=== PATIENT | male | born 1960 | race Caucasian/White ===

== ENCOUNTER 2019-03-17 12:10 | Outpatient (RCR) | payer MEDICARE, SELFPAY ==
[2019-03-17 13:39] LABS: INR 3.1; Prothrombin Time 32.5 Seconds (9.64-11.0)
== END 2019-06-15 23:59 | disposition home or self-care (01) ==
LOC: CHSLAB 12:10
PROVIDERS: PCP Internal Medicine; Visit Provider Internal Medicine
DX: Z79.01 Long term (current) use of anticoagulants (principal)
CPT/HCPCS: 36415; 85610

== ENCOUNTER 2019-04-17 14:35 | Outpatient (CLI) | payer MEDICARE, SELFPAY ==
--- NOTE | ~2019-04-17 | CT_ITS ---
EXAMINATION: CT abdomen pelvis wo con DATE: 04/17/2019 16:07 INDICATION: Cirrhosis TECHNIQUE: Computed tomography (CT) of the abdomen and pelvis was performed without intravenous contr ast. Automated exposure control and iterative reconstruction technique were employed. Exam dose: 143 2.87 mGy-cm total exam DLP. COMPARISON: 06/18/2018 CT abdomen pelvis FINDINGS: There is a 6 mm pleural-based calcified posteromedial right lower lobe nodule, consistent w ith benign process, likely a small calcified pulmonary granuloma. No infiltrate or consolidation at t he lung bases. Borderline heart size. Status post cholecystectomy. No hepatic, splenic or pancreatic space-occupying mass lesion is evident . No splenomegaly. There is a solitary calcification of the pancreatic head which may indicate mild c hronic pancreatitis. No bile duct or pancreatic duct dilatation. Normal morphology of the adrenal glands. There is an approximately 6.7 mm nonobstructing left renal calculus. There is an approximately 4.8 mm distal left ureteral calculus without hydroureteronephrosis. No right urinary tract calculus. No rig ht-sided hydroureteronephrosis. There is abdominal aortic calcification and bilateral lateral iliac and femoral artery calcification, without aneurysm. No intraperitoneal or retroperitoneal or pelvic mass lesion or adenopathy or ascites. Prominent prostate calcifications are noted. Bilateral vas deferens calcifications, suggesting diabet es. The urinary bladder is unremarkable. Diverticulosis of the sigmoid colon; no CT evidence of diverticulitis. No bowel obstruction or intrap eritoneal free air is detected. There is generalized edema of the abdominal and pelvic tirado. Diffuse osteopenia. There are compression fracture deformities of L1, L3, L4 and L5. Degenerative changes of the thoracic and lumbar spine. Prominent degenerative disc disease is noted i n particular at L1-2 and L5-S1. IMPRESSION: Status post cholecystectomy Left nephrolithiasis 4.8 mm distal left ureteral calculus Prominent prostate calcifications Bilateral vas deferens calcifications, likely due to diabetes Diverticulosis of the colon Anasarca Reviewed, dictated and finalized at [facility]. Reviewed, dictated and finalized at location B. ING PROFESSOR
[2019-04-17 15:48] LABS: Basophils Absolute Auto 0.04 K/mm3 (0.00-0.10); Basophils Percent Auto 0.3 % (0.0-1.0); Eosinophils Absolute Auto 0.09 K/mm3 (0.02-0.50); Eosinophils Percent Auto 0.7 % (1.0-6.0); Hematocrit 32.1 % (40.0-54.0); Hemoglobin 10.6 g/dL (14.0-18.0); Immature Granulocyte Absolute 0.09 K/mm3 (0.00-0.00); Immature Granulocyte Percent A 0.7 % (0.0-0.0); Lymphocytes Absolute Auto 1.15 K/mm3 (1.10-4.50); Mean Corpuscular Hemoglobin 34.6 pg (27.0-31.0); Mean Corpuscular Volume 104.9 fL (78.0-102.0); Mean Platelet Volume 9.1 fl (8.7-11.0); Monocytes Absolute Auto 1.08 K/mm3 (0.10-0.90); Monocytes Percent Auto 8.4 % (2.0-11.0); Neutrophils Absolute Auto 10.4 K/mm3 (1.7-7.2); Neutrophils Percent Auto 80.9 % (50.0-70.0); Platelet Count Result 417 K/mm3 (150-420); Red Blood Count 3.06 M/mm3 (4.70-6.10); Red Cell Distribution Width 15.2 % (11.6-14.4); White Blood Count 12.8 K/mm3 (4.8-10.8)
[2019-04-17 16:01] LABS: Prothrombin Time 98.8 Seconds (9.64-11.0)
[2019-04-17 16:10] LABS: INR 10.4
[2019-04-17 16:21] LABS: Alanine Aminotransferase 22 U/L (16-63); Albumin Level 1.6 g/dL (3.4-5.0); Alkaline Phosphatase 142 U/L (46-116); Ammonia 65 umol/L (11-32); Anion Gap 14.7 mmol/L (7-16); Aspartate Amino Transferase 23 U/L (15-37); Bilirubin,Total 0.3 mg/dL (0.00-1.00); Blood Urea Nitrogen 9 mg/dL (7-18); Calcium 8.1 mg/dL (8.5-10.1); Carbon Dioxide 23 mmol/L (21-32); Chloride 104 mmol/L (98-108); Estimated Glomerular Filt Rate > 60; Ferritin 756 ng/mL (26-388); GGT 116 U/L (15-85); Glucose 120 mg/dL (70-99); Iron 35 ug/dL (65-175); Osmolality Calculated 285 mOsm/kg (285-295); Percent Iron Saturation 18 % (12-57); Potassium 3.7 mmol/L (3.5-5.1); Sodium 138 mmol/L (136-145); Total Protein 5.4 g/dL (6.4-8.2)
[2019-04-17 16:46] LABS: BNP 235 pg/mL (0-100)
[2019-04-20 11:17] LABS: Mitochondrial (M2) Ab (IgG) <=20.0 U (<=20.0)
[2019-04-21 04:05] LABS: Hepatitis B Surface Antibody Nonreactive (Nonreactive); Hepatitis C Signal to Cutoff 0.06 ratio (<1.00); Hepatitis C Virus Antibody Nonreactive (Nonreactive)
[2019-04-21 19:47] LABS: Alpha Fetoprotein Tumor Marker 1.8 ng/mL (<6.1)
[2019-04-22 11:20] LABS: Actin Antibody (IgG) <20 U (<20)
== END 2019-04-17 15:36 | disposition home or self-care (01) ==
PROVIDERS: PCP Internal Medicine; Visit Provider Internal Medicine
DX: K74.60 Unspecified cirrhosis of liver (principal); R18.8 Other ascites; R06.00 Dyspnea, unspecified; D64.9 Anemia, unspecified; R60.1 Generalized edema
CPT/HCPCS: 36415; 74176; 80053; 82105; 82140; 82728; 82977; 83516; 83520; 83540; 83550; 83880; 85025; 85610; 86038; 86706

== ENCOUNTER 2019-05-14 17:38 | Inpatient (IN) | payer MEDICARE, SELFPAY ==
--- NOTE | ~2019-05-14 | US_ITS ---
EXAMINATION: US venous doppler [facility] DATE: 05/18/2019 12:45 INDICATION: Right lower limb pain. TECHNIQUE: Grayscale ultrasound images without and with compression and Doppler ultrasound images of the bilateral lower extremity veins were obtained. COMPARISON: None. FINDINGS: The visualized portions of right common femoral vein, profunda (deep) femoral vein, femoral vein, pop liteal vein, peroneal veins, posterior tibial veins, and greater saphenous vein outflow are patent. The visualized portions of left common femoral vein, profunda femoral vein, popliteal vein, peroneal veins, posterior tibial veins, and greater saphenous vein outflow are patent. There is thrombus in le ft femoral vein. IMPRESSION: 1. Deep vein thrombosis involving left femoral vein. Reviewed, dictated and finalized at location A.
--- NOTE | ~2019-05-14 | US_ITS ---
EXAMINATION: US venous doppler [facility] DATE: 05/18/2019 12:45 INDICATION: Left upper limb swelling. TECHNIQUE: Grayscale ultrasound images without and with compression and Doppler ultrasound images of the bilateral upper extremity veins were obtained. COMPARISON: None. FINDINGS: The visualized portions of the right internal jugular vein, subclavian vein, axillary vein, brachial veins, basilic vein, radial vein, and ulnar vein are patent. There is thrombus in right cephalic vein . The visualized portions of the left subclavian vein, brachial veins, basilic vein, radial vein, and u lnar vein are patent. There is thrombus in left cephalic vein, internal jugular vein, and axillary ve in. IMPRESSION: 1. Deep vein thrombosis involving left internal jugular vein and axillary vein. 2. Superficial vein thrombosis involving the bilateral cephalic veins. Reviewed, dictated and finalized at location A. IMPRESSION: 1. Deep vein thrombosis involving left internal jugular vein and axillary vein . 2. Superficial vein thrombosis involving the bilateral cephalic veins.
[2019-05-14 17:45] VITALS: BP 117/81; PULSE 99; RESP 18; TEMP 36.4; O2SAT 99; BMI 28.8
--- NOTE | 2019-05-14 18:03 | ADMGEN ---
This patient, Calixto Lyons, was admitted to 2nd Floor Room 204-2. Patient/family oriented to hospital policies and general routines including ID bracelet, bed and alarms, visiting hours, pain management, procedures, bathroom and other care routines, personal items, smoking policy, room service/diet, and visiting hours. Valuables list has been completed. Information on how to activate the Rapid Response Team has been discussed. Patient/Family are encouraged to report perceived risks to care and to ask questions if they do not understand what they are told or what they should do.
[2019-05-14] MEDS: FLUTICASONE PROPIONATE 0.05% NA SPR 16 GM BTL (*BKC) 2 SPRAY NASAL (20:11)
[2019-05-14] MEDS: TRAZODONE HCL 50 MG TABLET 100 MG PO (20:11)
[2019-05-14 22:00] VITALS: BP 114/65; PULSE 96; RESP 14; TEMP 36; O2SAT 99
[2019-05-15] MEDS: VANCOMYCIN HCL 125 MG CAPSULE PO ×5 (00:43→23:41)
[2019-05-15 06:00] VITALS: BP 123/50; PULSE 71; RESP 12; TEMP 36.4; O2SAT 99
--- NOTE | 2019-05-15 07:20 | PC.NURSE ---
Patient sleeping quietly in bed on right side. No distress noted. Breathing unlabored.
[2019-05-15 07:59] VITALS: BP 148/93; PULSE 118; RESP 18; TEMP 36.6; O2SAT 98
[2019-05-15 08:50] VITALS: PULSE 118
[2019-05-15] MEDS: THIAMINE HCL 100 MG TABLET PO (08:50)
[2019-05-15] MEDS: METOPROLOL TARTRATE 25 MG TABLET PO ×2 (08:50→18:03)
[2019-05-15] MEDS: FAMOTIDINE 20 MG TABLET PO (08:50)
[2019-05-15] MEDS: ASPIRIN 81 MG CHEWABLE TABLET PO (08:50)
[2019-05-15] MEDS: FERROUS SULFATE 324 MG TABLET PO (08:50)
[2019-05-15] MEDS: TAMSULOSIN HCL 0.4 MG CAPSULE PO ×2 (08:50→18:03)
[2019-05-15] MEDS: FOLIC ACID 1 MG TABLET PO (08:50)
[2019-05-15] MEDS: FUROSEMIDE 40 MG TABLET PO (08:51)
[2019-05-15] MEDS: CHOLESTYRAMINE (W/ SUGAR) 4 GM POWD.PACK PO ×2 (08:51→18:03)
--- NOTE | 2019-05-15 09:00 | PC.NURSE ---
Physical Therapy and Occupational Therapy in room to evaluate patient.
[2019-05-15] MEDS: SACCHAROMYCES BOULARDII 250 MG CAPSULE PO ×2 (09:13→18:04)
--- NOTE | 2019-05-15 10:31 | PM.IMHP ---
H&P: HPI History of Present Illness Chief complaint: rehab Narrative: Calixto Lyons is a 58 year old male admitted to swing bed rehab for generalized weakness, bilateral leg pain/numbness/ weakness, monitoring of INR and therapeutic Coumadin dosing, monitoring diarrhea and stool output as well as recovering from diarrhea, and monitoring for improvement from having multiple DVTs. Calixto reports that he lives in been held alone, he has been driving up until this hospitalization at [facility] in [facility]. He has 3 children that all live in [place] [facility] [place]. His children take turns carrying his groceries and getting his errands done. He reports I can't carry groceries and walk at the same time. He has a history of a fall on April 28 at night. Where he laid on his back in his home overnight, and in the morning called the ambulance on April 29. He reports having wounds to his buttocks due to laying on the ground all night in his own, urinating while he laid there on himself, and having bowel movements as well. It was reported that he had diarrhea at [facility] but that C diff test were both negative. They still started him on the C diff oral vancomycin protocol and wanted us to continue that here 125 mg p.o. q.6 hours. He is having diarrhea here, ordered stool cultures as well as C diff toxin study. Requested that Physical therapy work with him on pelvic floor exercises to strengthen his ability to maintain continent voiding and stools. Ordered labs and a full workup today. Ordered Coumadin dosing to be monitored by Pharmacy. Ordered INR and PT labs daily. Ordered serial CBC every 72 hours. Calixto is complaining of right lower leg anterior grajeda pain. He states this is been only since his fall on April 28 but the pain is not improving. He says it makes it difficult for him to walk with therapy. We have requested copies of the CT scans that they did of both legs at [facility], as well as the arterial studies and the venous Dopplers that were done at that time. Vascular surgery and plastics also were consulted at [facility] to follow-up on his legs, leg pain, and buttock wounds. I have requested those consultation note to be faxed to us as well. Calixto has palpable pulses to all 4 of his extremities, normal cap refill return, in warmth to all 4 of his extremities with no sign of circulation acute concerns. His left arm is slightly larger than his right arm, but he stated that this is improving. He did have peripheral IVs in the left arm at the prior hospital. Regarding his stage II pressure sores acquired at his own home prior to hospitalization: I have examined his buttock wounds and ordered wound care and dressings equivalent to the Mepilex dressing that plastics requested. I have asked care coordination to schedule Calixto for his follow-up visit in 7 days to be seen by Plastics for his buttock wounds. Ordered Q 2 hours turns, ordered up to chair for meals, ordered daily supplemental protein. Review of Systems Constitutional: Constitutional: Denies excessive sweating, Denies headache(s), Denies increased appetite, Denies snoring and Denies weight gain Eyes: Eyes: Denies exophthalmos, Denies diplopia, Denies floaters and Denies loss of peripheral vision ENT: Denies facial pain, Denies headache(s), Denies odynophagia and Denies tinnitus Respiratory: Respiratory: Denies snoring Gastrointestinal: Gastrointestinal: Denies odynophagia Neurologic: Denies headache(s) Endocrine: Endocrine: Denies excessive sweating [facility] Past Medical History Medical History Alcohol abuse CAD (coronary atherosclerotic disease) (Unknown) Chronic deep vein thrombosis (DVT) of femoral vein of left lower extremity (Unknown) Chronic thrombosis of right axillary vein (Unknown) Clostridium difficile infection (~04/2019)
[2019-05-15] MEDS: ASCORBIC ACID 500 MG TABLET PO (13:21)
[2019-05-15] MEDS: PHARMACIST COMMUNICATION ORDER 1 EACH XX (13:21)
[2019-05-15 14:07] LABS: Basophils Absolute Auto 0.06 K/mm3 (0.00-0.10); Basophils Percent Auto 0.6 % (0.0-1.0); Eosinophils Absolute Auto 0.15 K/mm3 (0.02-0.50); Eosinophils Percent Auto 1.4 % (1.0-6.0); Hematocrit 34.8 % (40.0-54.0); Hemoglobin 11.6 g/dL (14.0-18.0); Immature Granulocyte Absolute 0.19 K/mm3 (0.00-0.00); Immature Granulocyte Percent A 1.8 % (0.0-0.0); Immature Platelet Fraction Pct 1.3 % (1.0-7.0); Lymphocytes Percent Auto 17.3 % (18.0-42.0); Mean Corpuscular HGB Conc 33.3 g/dL (32.0-36.0); Mean Corpuscular Hemoglobin 32.8 pg (27.0-31.0); Mean Corpuscular Volume 98.3 fL (78.0-102.0); Mean Platelet Volume 9.5 fl (8.7-11.0); Monocytes Absolute Auto 0.85 K/mm3 (0.10-0.90); Monocytes Percent Auto 8.2 % (2.0-11.0); Neutrophils Absolute Auto 7.3 K/mm3 (1.7-7.2); Neutrophils Percent Auto 70.7 % (50.0-70.0); Platelet Count Result 180 K/mm3 (150-420); Red Blood Count 3.54 M/mm3 (4.70-6.10); Red Cell Distribution Width 14.3 % (11.6-14.4); White Blood Count 10.4 K/mm3 (4.8-10.8)
[2019-05-15 14:16] LABS: Iron 30 ug/dL (65-175); Percent Iron Saturation 28 % (12-57)
[2019-05-15 14:25] LABS: BNP 156 pg/mL (0-100)
[2019-05-15 14:27] LABS: Alanine Aminotransferase 72 U/L (16-63); Albumin Level 1.7 g/dL (3.4-5.0); Alkaline Phosphatase 91 U/L (46-116); Anion Gap 13.3 mmol/L (7-16); Aspartate Amino Transferase 52 U/L (15-37); Bilirubin,Total 0.3 mg/dL (0.00-1.00); Blood Urea Nitrogen 5 mg/dL (7-18); Calcium 7.5 mg/dL (8.5-10.1); Carbon Dioxide 17 mmol/L (21-32); Chloride 107 mmol/L (98-108); Estimated CRCL calculation 114 ml/min; Estimated Glomerular Filt Rate > 60; Glucose 141 mg/dL (70-99); Magnesium 1.4 mg/dL (1.8-2.4); Osmolality Calculated 275 mOsm/kg (285-295); Phosphorus 2.9 mg/dL (2.6-4.7); Potassium 4.3 mmol/L (3.5-5.1); Sodium 133 mmol/L (136-145)
[2019-05-15 14:28] LABS: Ammonia 31 umol/L (11-32); Ferritin 772 ng/mL (26-388)
[2019-05-15 14:29] LABS: Thyroid Stimulating Hormone Reflex 4.07 u/IU/mL (0.36-3.74)
[2019-05-15 14:44] LABS: Free T4 Free Thyroxine Reflex 1.41 ng/dL (0.76-1.46)
[2019-05-15 15:01] LABS: INR 1.6; Prothrombin Time 16.1 Seconds (9.64-11.0)
[2019-05-15 16:40] VITALS: BP 122/76; PULSE 89; RESP 16; TEMP 36.4; O2SAT 100
[2019-05-15 18:03] VITALS: PULSE 89
[2019-05-15] MEDS: WARFARIN (*PBKC) 2 MG TABLET 4 MG PO (18:03)
[2019-05-15] MEDS: MAGNESIUM OXIDE 400 MG TABLET PO (18:03)
[2019-05-15] MEDS: FLUTICASONE PROPIONATE 0.05% NA SPR 16 GM BTL (*BKC) 2 SPRAY NASAL (20:38)
[2019-05-15] MEDS: TRAZODONE HCL 50 MG TABLET 100 MG PO (20:43)
[2019-05-15 23:54] VITALS: BP 100/81; PULSE 84; RESP 18; TEMP 36; O2SAT 97
[2019-05-16] MEDS: LEVOTHYROXINE SODIUM 25 MCG TABLET PO (05:34)
[2019-05-16] MEDS: VANCOMYCIN HCL 125 MG CAPSULE PO ×3 (05:34→17:29)
[2019-05-16 07:33] LABS: INR 1.5
[2019-05-16 08:00] VITALS: BP 132/81; PULSE 100; RESP 22; TEMP 37.1; O2SAT 97
[2019-05-16] MEDS: ASCORBIC ACID 500 MG TABLET PO (09:34)
[2019-05-16] MEDS: ASPIRIN 81 MG CHEWABLE TABLET PO (09:34)
[2019-05-16] MEDS: POTASSIUM CHLORIDE 20 MEQ TABLET PO (09:34)
[2019-05-16] MEDS: FERROUS SULFATE 324 MG TABLET PO (09:34)
[2019-05-16] MEDS: THIAMINE HCL 100 MG TABLET PO (09:34)
[2019-05-16] MEDS: CHOLESTYRAMINE (W/ SUGAR) 4 GM POWD.PACK PO ×2 (09:34→17:29)
[2019-05-16] MEDS: FAMOTIDINE 20 MG TABLET PO (09:34)
[2019-05-16] MEDS: MAGNESIUM OXIDE 400 MG TABLET PO ×3 (09:34→17:30)
[2019-05-16 09:35] VITALS: PULSE 100
[2019-05-16] MEDS: METOPROLOL TARTRATE 25 MG TABLET PO ×2 (09:35→17:30)
[2019-05-16] MEDS: SACCHAROMYCES BOULARDII 250 MG CAPSULE PO ×2 (09:35→17:29)
[2019-05-16] MEDS: FOLIC ACID 1 MG TABLET PO (09:35)
[2019-05-16] MEDS: FUROSEMIDE 40 MG TABLET PO (09:35)
[2019-05-16] MEDS: TAMSULOSIN HCL 0.4 MG CAPSULE PO ×2 (09:35→17:29)
--- NOTE | 2019-05-16 11:48 | PM.IMPN ---
Progress Note: A&P Assessment and Plan (1) Weakness generalized: Onset Date: ~05/15/19 Code(s): R53.1 - Weakness Status: Acute Assessment and Plan: patient has entered swing rehab therapy PT OT orders in place for evaluate and treat may participate in therapeutic activities out of bed for meals turn every 2 hours ordered regular diet ordered additional protein supplements throughout the day will continue to work on resolving his incontinent diarrhea will continue to work on improving his right leg strength improving his right leg pain control (2) Numbness and tingling of both lower extremities: Onset Date: Unknown Code(s): R20.0 - Anesthesia of skin; R20.2 - Paresthesia of skin Status: Acute Assessment and Plan: requesting the CT scan of his right lower extremity, the CT scan of his left lower extremity, the arterial duplex studies of his lower extremities, in the venous Dopplers of his lower extremities- all these studies were done at [facility] in [place], Reviewed the workup that [place] completed and found no acute concerns. he also had a vascular consultation in [place] for his pain and weakness in his legs his cap refill on all 4 extremities is currently normal all 4 extremities are warm and without mottling or cyanosis all 4 extremities have palpable pulses will consider Neurontin if needing pain control. (3) PVD (peripheral vascular disease): Onset Date: Unknown Code(s): I73.9 - Peripheral vascular disease, unspecified Status: Acute Assessment and Plan: see above plan for numbness and tingling of lower extremities complete a lipid panel continue daily aspirin of 81 mg continue PT OT continue daily Coumadin anticoagulation after discharge he should follow-up with vascular surgeon and chemical dependency attendant continue cessation of smoking (4) CAD (coronary atherosclerotic disease): Onset Date: Unknown Code(s): I25.10 - Atherosclerotic heart disease of [place] coronary artery without angina pectoris Status: Acute Assessment and Plan: Needs Lipid panel check - would likely benefit from Lipitor 40mg daily due to co-morbities - will discuss further with patient after Lipid panel results known. Control BP and HR - Vital Sign Checks q 8 HRS. daily weights intake/outputs recorded. YONY babcock ordered continue daily ASA 81 mg, Lasix 40mg daily, Metoprolol tartrate 25 mg BID, Tamsulosin (likely BPH). Daily warfarin 4mg daily dose (titrated by pharmacy and daily INR results) (5) Hypokalemia: Onset Date: Unknown Code(s): E87.6 - Hypokalemia Status: Acute Assessment and Plan: resolved at this time completed labs today and found his potassium to be 4.3 continue his daily potassium chloride 20 mEq orally every other day on regular diet with adequate above 50% intake on meals (6) Hyponatremia: Onset Date: Unknown Code(s): E87.1 - Hypo-osmolality and hyponatremia Status: Acute Assessment and Plan: completed lab work today and found his sodium to be 133 changed his diet to regular added additional protein and dietary supplements monitor him for dizziness and lightheadedness, which he currently denies order orthostatic BPs as needed. maintain adequate blood pressures and normal heart rates (7) Chronic thrombosis of right axillary vein: Onset Date: Unknown Code(s): I82.A21 - Chronic embolism and thrombosis of right axillary vein Status: Acute Assessment and Plan: see above PVD plan as well as numbness and tingling to lower extremities plan patient has been elevating arms with a pillow to the level of his heart continue daily anticoagulation therapy with Coumadin as well as monitoring daily INR values with pharmacy adjusting Coumadin doses as needed (8) Chronic deep vein thrombosis (DVT) of femoral vein of left lower extremity:
[2019-05-16] MEDS: ONDANSETRON HCL ODT 4 MG TABLET PO (15:20)
[2019-05-16 16:00] VITALS: BP 130/84; PULSE 84; RESP 20; TEMP 36.2; O2SAT 99
[2019-05-16] MEDS: SUCRALFATE SUSP 100 MG/ML 10 ML UDC 1000 MG PO (16:53)
[2019-05-16 17:30] VITALS: PULSE 86
[2019-05-16] MEDS: WARFARIN (*PBKC) 2 MG TABLET 7 MG PO (17:31)
[2019-05-16] MEDS: TRAZODONE HCL 50 MG TABLET 100 MG PO (20:10)
[2019-05-16] MEDS: FLUTICASONE PROPIONATE 0.05% NA SPR 16 GM BTL (*BKC) 2 SPRAY NASAL (20:11)
[2019-05-17] VITALS: BP 123/72; PULSE 92; RESP 16; TEMP 36.1; O2SAT 99
[2019-05-17] MEDS: VANCOMYCIN HCL 125 MG CAPSULE PO ×4 (00:46→17:53)
[2019-05-17] MEDS: LEVOTHYROXINE SODIUM 25 MCG TABLET PO (05:47)
[2019-05-17 08:00] VITALS: BP 130/84; PULSE 92; RESP 18; TEMP 36.8; O2SAT 99
[2019-05-17 08:06] LABS: Basophils Absolute Auto 0.06 K/mm3 (0.00-0.10); Basophils Percent Auto 0.6 % (0.0-1.0); Eosinophils Absolute Auto 0.25 K/mm3 (0.02-0.50); Eosinophils Percent Auto 2.5 % (1.0-6.0); Hematocrit 30.7 % (40.0-54.0); Hemoglobin 10.2 g/dL (14.0-18.0); Immature Granulocyte Absolute 0.18 K/mm3 (0.00-0.00); Immature Granulocyte Percent A 1.8 % (0.0-0.0); Lymphocytes Absolute Auto 2.31 K/mm3 (1.10-4.50); Lymphocytes Percent Auto 23.1 % (18.0-42.0); Mean Corpuscular HGB Conc 33.2 g/dL (32.0-36.0); Mean Corpuscular Hemoglobin 32.4 pg (27.0-31.0); Mean Corpuscular Volume 97.5 fL (78.0-102.0); Mean Platelet Volume 8.8 fl (8.7-11.0); Monocytes Absolute Auto 1.04 K/mm3 (0.10-0.90); Monocytes Percent Auto 10.4 % (2.0-11.0); Neutrophils Absolute Auto 6.2 K/mm3 (1.7-7.2); Neutrophils Percent Auto 61.6 % (50.0-70.0); Platelet Count Result 391 K/mm3 (150-420); Red Blood Count 3.15 M/mm3 (4.70-6.10); Red Cell Distribution Width 14.3 % (11.6-14.4)
[2019-05-17 08:17] LABS: INR 1.8; Prothrombin Time 18.4 Seconds (9.64-11.0)
[2019-05-17] MEDS: ONDANSETRON HCL ODT 4 MG TABLET PO ×2 (08:17→16:40)
[2019-05-17 08:27] LABS: Anion Gap 10.9 mmol/L (7-16); Blood Urea Nitrogen 5 mg/dL (7-18); Calcium 7.1 mg/dL (8.5-10.1); Carbon Dioxide 21 mmol/L (21-32); Chloride 109 mmol/L (98-108); Estimated CRCL calculation 116 ml/min; Estimated Glomerular Filt Rate > 60; Glucose 81 mg/dL (70-99); Osmolality Calculated 280 mOsm/kg (285-295); Potassium 3.9 mmol/L (3.5-5.1); Sodium 137 mmol/L (136-145)
[2019-05-17 09:08] LABS: Cholesterol 94 mg/dL (0-200); HDL Direct 33 mg/dL (40-60); LDL Cholesterol Calculated 45 mg/dL (<130); Triglycerides 81 mg/dL (0-150)
[2019-05-17] MEDS: SACCHAROMYCES BOULARDII 250 MG CAPSULE PO ×2 (09:13→17:52)
[2019-05-17] MEDS: CHOLESTYRAMINE (W/ SUGAR) 4 GM POWD.PACK PO ×2 (09:13→17:52)
[2019-05-17] MEDS: FERROUS SULFATE 324 MG TABLET PO (09:14)
[2019-05-17] MEDS: ASCORBIC ACID 500 MG TABLET PO (09:14)
[2019-05-17] MEDS: FLUTICASONE PROPIONATE 0.05% NA SPR 16 GM BTL (*BKC) 2 SPRAY NASAL ×2 (09:14→20:19)
[2019-05-17] MEDS: ASPIRIN 81 MG CHEWABLE TABLET PO (09:14)
[2019-05-17] MEDS: TAMSULOSIN HCL 0.4 MG CAPSULE PO ×2 (09:14→17:53)
[2019-05-17 09:15] VITALS: PULSE 96
[2019-05-17] MEDS: THIAMINE HCL 100 MG TABLET PO (09:15)
[2019-05-17] MEDS: FUROSEMIDE 40 MG TABLET PO (09:15)
[2019-05-17] MEDS: MAGNESIUM OXIDE 400 MG TABLET PO ×3 (09:15→17:53)
[2019-05-17] MEDS: FOLIC ACID 1 MG TABLET PO (09:15)
[2019-05-17] MEDS: FAMOTIDINE 20 MG TABLET PO (09:15)
[2019-05-17] MEDS: METOPROLOL TARTRATE 25 MG TABLET PO ×2 (09:15→17:53)
[2019-05-17 16:00] VITALS: BP 136/87; PULSE 86; RESP 20; TEMP 36.4; O2SAT 99
[2019-05-17 17:53] VITALS: PULSE 92
[2019-05-17] MEDS: WARFARIN (*PBKC) 5 MG TABLET PO (17:53)
[2019-05-17] MEDS: TRAZODONE HCL 50 MG TABLET 100 MG PO (20:20)
[2019-05-18] VITALS: BP 135/84; PULSE 79; RESP 16; TEMP 36.4; O2SAT 99
[2019-05-18] MEDS: VANCOMYCIN HCL 125 MG CAPSULE PO ×5 (00:05→23:42)
[2019-05-18] MEDS: LEVOTHYROXINE SODIUM 25 MCG TABLET PO (05:50)
[2019-05-18 08:00] VITALS: BP 127/75; PULSE 92; RESP 20; TEMP 36.2; O2SAT 97
[2019-05-18 08:12] LABS: Prothrombin Time 20.2 Seconds (9.64-11.0)
[2019-05-18] MEDS: SACCHAROMYCES BOULARDII 250 MG CAPSULE PO ×2 (09:29→17:45)
[2019-05-18 09:33] VITALS: PULSE 92
[2019-05-18] MEDS: ASCORBIC ACID 500 MG TABLET PO (09:33)
[2019-05-18] MEDS: ASPIRIN 81 MG CHEWABLE TABLET PO (09:33)
[2019-05-18] MEDS: THIAMINE HCL 100 MG TABLET PO (09:33)
[2019-05-18] MEDS: METOPROLOL TARTRATE 25 MG TABLET PO ×2 (09:33→17:46)
[2019-05-18] MEDS: MAGNESIUM OXIDE 400 MG TABLET PO ×3 (09:33→17:45)
[2019-05-18] MEDS: CHOLESTYRAMINE (W/ SUGAR) 4 GM POWD.PACK PO ×2 (09:33→17:45)
[2019-05-18] MEDS: FOLIC ACID 1 MG TABLET PO (09:33)
[2019-05-18] MEDS: FUROSEMIDE 40 MG TABLET PO (09:33)
[2019-05-18] MEDS: FERROUS SULFATE 324 MG TABLET PO (09:33)
[2019-05-18] MEDS: TAMSULOSIN HCL 0.4 MG CAPSULE PO ×2 (09:33→17:46)
[2019-05-18] MEDS: FAMOTIDINE 20 MG TABLET PO (09:33)
[2019-05-18] MEDS: POTASSIUM CHLORIDE 20 MEQ TABLET PO (09:33)
[2019-05-18] MEDS: FLUTICASONE PROPIONATE 0.05% NA SPR 16 GM BTL (*BKC) 2 SPRAY NASAL ×2 (09:34→21:29)
--- NOTE | 2019-05-18 10:45 | PC.NURSE ---
Patient off floor to ultrasound
[2019-05-18 16:00] VITALS: BP 126/78; PULSE 90; RESP 20; TEMP 36.2; O2SAT 99
[2019-05-18 17:46] VITALS: PULSE 90
[2019-05-18] MEDS: WARFARIN (*PBKC) 2 MG TABLET 4 MG PO (17:47)
[2019-05-18 19:58] LABS: Vitamin D 25 Hydroxy 8 ng/mL (30-100)
[2019-05-18] MEDS: TRAZODONE HCL 50 MG TABLET 100 MG PO (21:29)
[2019-05-19] VITALS: BP 128/52; PULSE 86; RESP 20; TEMP 36.2; O2SAT 98
[2019-05-19] MEDS: VANCOMYCIN HCL 125 MG CAPSULE PO ×4 (05:39→23:29)
[2019-05-19] MEDS: LEVOTHYROXINE SODIUM 25 MCG TABLET PO (05:39)
[2019-05-19 07:33] VITALS: BP 123/50; PULSE 80; RESP 20; TEMP 36.3; O2SAT 98
[2019-05-19 07:55] LABS: Prothrombin Time 20.1 Seconds (9.64-11.0)
[2019-05-19] MEDS: ASCORBIC ACID 500 MG TABLET PO (08:18)
[2019-05-19] MEDS: FOLIC ACID 1 MG TABLET PO (08:19)
[2019-05-19] MEDS: ASPIRIN 81 MG CHEWABLE TABLET PO (08:19)
[2019-05-19] MEDS: THIAMINE HCL 100 MG TABLET PO (08:19)
[2019-05-19] MEDS: TAMSULOSIN HCL 0.4 MG CAPSULE PO ×2 (08:19→17:50)
[2019-05-19] MEDS: METOPROLOL TARTRATE 25 MG TABLET PO ×2 (08:19→17:51)
[2019-05-19] MEDS: FAMOTIDINE 20 MG TABLET PO (08:19)
[2019-05-19] MEDS: FUROSEMIDE 40 MG TABLET PO (08:19)
[2019-05-19] MEDS: FERROUS SULFATE 324 MG TABLET PO (08:19)
[2019-05-19] MEDS: FLUTICASONE PROPIONATE 0.05% NA SPR 16 GM BTL (*BKC) 2 SPRAY NASAL ×2 (08:20→20:22)
[2019-05-19] MEDS: MAGNESIUM OXIDE 400 MG TABLET PO ×3 (08:20→17:51)
[2019-05-19] MEDS: CHOLESTYRAMINE (W/ SUGAR) 4 GM POWD.PACK PO ×2 (08:20→17:50)
[2019-05-19] MEDS: SACCHAROMYCES BOULARDII 250 MG CAPSULE PO ×2 (08:25→17:51)
[2019-05-19 14:53] VITALS: BP 118/54; PULSE 86; RESP 20; TEMP 36.4; O2SAT 98
[2019-05-19 17:51] VITALS: PULSE 84
[2019-05-19] MEDS: WARFARIN (*PBKC) 2 MG TABLET 4 MG PO (17:52)
[2019-05-19] MEDS: TRAZODONE HCL 50 MG TABLET 100 MG PO (20:22)
--- NOTE | 2019-05-19 20:22 | PC.NURSE ---
Trazodone 100mg po given per request for sleep
--- NOTE | 2019-05-19 22:25 | PC.NURSE ---
Sleeping, resp even. Needed objects in reach.
[2019-05-19 23:32] VITALS: BP 119/84; PULSE 81; RESP 18; TEMP 36.5; O2SAT 98
--- NOTE | 2019-05-20 01:35 | PC.NURSE ---
Pt sleeping, respirations even and regular, no evidence of distress noted
[2019-05-20] MEDS: VANCOMYCIN HCL 125 MG CAPSULE PO ×3 (05:50→16:49)
[2019-05-20] MEDS: LEVOTHYROXINE SODIUM 25 MCG TABLET PO (05:50)
[2019-05-20 05:59] LABS: Basophils Absolute Auto 0.05 K/mm3 (0.00-0.10); Basophils Percent Auto 0.5 % (0.0-1.0); Eosinophils Absolute Auto 0.25 K/mm3 (0.02-0.50); Eosinophils Percent Auto 2.7 % (1.0-6.0); Hematocrit 32.7 % (40.0-54.0); Hemoglobin 10.8 g/dL (14.0-18.0); Immature Granulocyte Absolute 0.09 K/mm3 (0.00-0.00); Lymphocytes Absolute Auto 2.21 K/mm3 (1.10-4.50); Lymphocytes Percent Auto 23.9 % (18.0-42.0); Mean Corpuscular Hemoglobin 32.5 pg (27.0-31.0); Mean Corpuscular Volume 98.5 fL (78.0-102.0); Mean Platelet Volume 8.9 fl (8.7-11.0); Monocytes Absolute Auto 0.77 K/mm3 (0.10-0.90); Monocytes Percent Auto 8.3 % (2.0-11.0); Neutrophils Absolute Auto 5.9 K/mm3 (1.7-7.2); Neutrophils Percent Auto 63.6 % (50.0-70.0); Platelet Count Result 417 K/mm3 (150-420); Red Blood Count 3.32 M/mm3 (4.70-6.10); Red Cell Distribution Width 14.1 % (11.6-14.4); White Blood Count 9.2 K/mm3 (4.8-10.8)
[2019-05-20 06:10] LABS: INR 1.9; Prothrombin Time 18.8 Seconds (9.64-11.0)
[2019-05-20 07:11] VITALS: BP 123/80; PULSE 76; RESP 18; TEMP 36.6; O2SAT 97
[2019-05-20] MEDS: FOLIC ACID 1 MG TABLET PO (08:19)
[2019-05-20] MEDS: FERROUS SULFATE 324 MG TABLET PO (08:19)
[2019-05-20] MEDS: ASCORBIC ACID 500 MG TABLET PO (08:19)
[2019-05-20] MEDS: ASPIRIN 81 MG CHEWABLE TABLET PO (08:19)
[2019-05-20] MEDS: CHOLESTYRAMINE (W/ SUGAR) 4 GM POWD.PACK PO ×2 (08:19→16:49)
[2019-05-20] MEDS: FLUTICASONE PROPIONATE 0.05% NA SPR 16 GM BTL (*BKC) 2 SPRAY NASAL ×2 (08:19→21:33)
[2019-05-20] MEDS: FAMOTIDINE 20 MG TABLET PO (08:19)
[2019-05-20] MEDS: FUROSEMIDE 40 MG TABLET PO (08:19)
[2019-05-20] MEDS: MAGNESIUM OXIDE 400 MG TABLET PO ×3 (08:19→16:48)
[2019-05-20 08:20] VITALS: PULSE 76
[2019-05-20] MEDS: SACCHAROMYCES BOULARDII 250 MG CAPSULE PO ×2 (08:20→17:01)
[2019-05-20] MEDS: TAMSULOSIN HCL 0.4 MG CAPSULE PO ×2 (08:20→16:49)
[2019-05-20] MEDS: THIAMINE HCL 100 MG TABLET PO (08:20)
[2019-05-20] MEDS: METOPROLOL TARTRATE 25 MG TABLET PO ×2 (08:20→16:49)
[2019-05-20] MEDS: POTASSIUM CHLORIDE 20 MEQ TABLET PO (08:20)
[2019-05-20] MEDS: GABAPENTIN 100 MG CAPSULE PO ×3 (10:57→16:49)
--- NOTE | 2019-05-20 11:34 | PM.IMPN ---
Progress Note: A&P Assessment and Plan (1) Weakness generalized: Onset Date: ~05/15/19 Code(s): R53.1 - Weakness Status: Acute Assessment and Plan: patient has entered swing rehab therapy PT OT orders in place for evaluate and treat may participate in therapeutic activities out of bed for meals turn every 2 hours ordered regular diet ordered additional protein supplements throughout the day will continue to bowel regime as is, due to significant improvement noted will continue to work on improving his right leg strength improving his right leg pain control (2) Numbness and tingling of both lower extremities: Onset Date: Unknown Code(s): R20.0 - Anesthesia of skin; R20.2 - Paresthesia of skin Status: Acute Assessment and Plan: requesting the CT scan of his right lower extremity, the CT scan of his left lower extremity, the arterial duplex studies of his lower extremities, in the venous Dopplers of his lower extremities- all these studies were done at [facility] in [place], one of the studies at [facility] stated that they couldn't visualize well and Ordered a repeat Venous Doppler to be done here. EXAMINATION: US venous doppler UE BI DATE: 05/18/2019 12:45 INDICATION: Left upper limb swelling. FINDINGS: The visualized portions of the right internal jugular vein, subclavian vein, axillary vein, brachial veins, basilic vein, radial vein, and ulnar vein are patent. There is thrombus in right cephalic vein. The visualized portions of the left subclavian vein, brachial veins, basilic vein, radial vein, and ulnar vein are patent. There is thrombus in left cephalic vein, internal jugular vein, and axillary vein. IMPRESSION: 1. Deep vein thrombosis involving left internal jugular vein and axillary vein. 2. Superficial vein thrombosis involving the bilateral cephalic veins. he also had a vascular consultation in [place] for his pain and weakness in his legs his cap refill on all 4 extremities is currently normal all 4 extremities are warm and without mottling or cyanosis all 4 extremities have palpable pulses started on Neurontin for better pain control. (3) PVD (peripheral vascular disease): Onset Date: Unknown Code(s): I73.9 - Peripheral vascular disease, unspecified Status: Acute Assessment and Plan: see above plan for numbness and tingling of lower extremities complete a lipid panel continue daily aspirin of 81 mg continue PT OT continue daily Coumadin anticoagulation after discharge he should follow-up with vascular surgeon and cardiology clinical nurse specialist continue cessation of smoking (4) CAD (coronary atherosclerotic disease): Onset Date: Unknown Code(s): I25.10 - Atherosclerotic heart disease of [place] coronary artery without angina pectoris Status: Acute Assessment and Plan: Lipid panel WNL (HDL could improve) Control BP and HR - Vital Sign Checks q 8 HRS. daily weights intake/outputs recorded. YONY babcock ordered continue daily ASA 81 mg, Lasix 40mg daily, Metoprolol tartrate 25 mg BID, Tamsulosin (likely BPH). Daily warfarin 4-7mg daily dose (titrated by pharmacy and daily INR results) (5) Hypokalemia: Onset Date: Unknown Code(s): E87.6 - Hypokalemia Status: Acute Assessment and Plan: resolved at this time completed labs today and found his potassium to be 4.3 continue his daily potassium chloride 20 mEq orally every other day on regular diet with adequate above 50% intake on meals (6) Hyponatremia: Onset Date: Unknown Code(s): E87.1 - Hypo-osmolality and hyponatremia Status: Acute Assessment and Plan: completed lab work today and found his sodium to be 133 changed his diet to regular added additional protein and dietary supplements monitor him for dizziness and lightheadedness, which he currently denies order orthostatic BPs as needed. maintain adeq
[2019-05-20] MEDS: ACETAMINOPHEN 500 MG TABLET 1000 MG PO ×2 (12:26→17:53)
[2019-05-20 16:00] VITALS: BP 133/79; PULSE 86; RESP 18; TEMP 36; O2SAT 98
[2019-05-20 16:49] VITALS: PULSE 86
[2019-05-20] MEDS: WARFARIN (*PBKC) 2 MG TABLET 6 MG PO (17:52)
[2019-05-20] MEDS: TRAZODONE HCL 50 MG TABLET 100 MG PO (21:33)
--- NOTE | 2019-05-20 22:20 | P.PNCROSS_ITS ---
Event Note Event Note Event Note: For this patient encounter, I reviewed the CLINICAL ACADEMIC ALLERGIST documentation, treatment plan, and medical decision making. I met with the patient who complains of pain on the bottom of his feet which started several months ago. The pain is worse when pressure is applied, i.e. when he's walking. Pt. has tenderness and hypersensitivity on the bottom of both feet c/w neuropathy. Agree with plan of increasing dose of neurontin.
[2019-05-21 00:08] VITALS: BP 148/53; PULSE 75; RESP 16; TEMP 36.4; O2SAT 94
[2019-05-21] MEDS: VANCOMYCIN HCL 125 MG CAPSULE PO ×2 (00:15→08:34)
[2019-05-21] MEDS: LEVOTHYROXINE SODIUM 25 MCG TABLET PO (05:50)
[2019-05-21 05:52] LABS: INR 1.8; Prothrombin Time 18.3 Seconds (9.64-11.0)
[2019-05-21 08:00] VITALS: BP 114/77; PULSE 106; RESP 20; TEMP 36.4; O2SAT 97
[2019-05-21] MEDS: ASCORBIC ACID 500 MG TABLET PO (08:33)
[2019-05-21] MEDS: MAGNESIUM OXIDE 400 MG TABLET PO ×3 (08:33→17:04)
[2019-05-21] MEDS: TAMSULOSIN HCL 0.4 MG CAPSULE PO ×2 (08:33→17:04)
[2019-05-21] MEDS: GABAPENTIN 300 MG CAPSULE PO ×3 (08:33→17:04)
[2019-05-21 08:34] VITALS: PULSE 88
[2019-05-21] MEDS: FAMOTIDINE 20 MG TABLET PO (08:34)
[2019-05-21] MEDS: ASPIRIN 81 MG CHEWABLE TABLET PO (08:34)
[2019-05-21] MEDS: THIAMINE HCL 100 MG TABLET PO (08:34)
[2019-05-21] MEDS: METOPROLOL TARTRATE 25 MG TABLET PO ×2 (08:34→17:04)
[2019-05-21] MEDS: SACCHAROMYCES BOULARDII 250 MG CAPSULE PO ×2 (08:34→17:04)
[2019-05-21] MEDS: FERROUS SULFATE 324 MG TABLET PO (08:34)
[2019-05-21] MEDS: FUROSEMIDE 40 MG TABLET PO (08:34)
[2019-05-21] MEDS: FLUTICASONE PROPIONATE 0.05% NA SPR 16 GM BTL (*BKC) 2 SPRAY NASAL ×2 (08:34→20:16)
[2019-05-21] MEDS: FOLIC ACID 1 MG TABLET PO (08:34)
[2019-05-21] MEDS: CHOLESTYRAMINE (W/ SUGAR) 4 GM POWD.PACK PO ×2 (08:36→17:04)
--- NOTE | 2019-05-21 15:10 | P.PNIM_ITS ---
Progress Note: A&P Assessment and Plan (1) Weakness generalized: Onset Date: ~05/15/19 Code(s): R53.1 - Weakness Status: Acute Assessment and Plan: * Exhibit tolerance during physical activity as evidenced by a normal fluctuation of vital signs during physical activity. * Patient will be ability to perform required activities of daily living. * Provide appropriate nutrition for healing and strength. * Use appropriate to prevent falls. * Continue physical therapy/occupational therapy. * ordered additional protein supplements throughout the day * patient ambulating 400 ft standby assist/ contact guard assist (2) Numbness and tingling of both lower extremities: Onset Date: Unknown Code(s): R20.0 - Anesthesia of skin; R20.2 - Paresthesia of skin Status: Acute Assessment and Plan: * possibly secondary to PVD * per previous provider the CT scan of his left lower extremity, the arterial duplex studies of his lower extremities, in the venous Dopplers of his lower extremities- all these studies were done at [facility] in [place], one of the studies at [facility] stated that they couldn't visualize well and Ordered a repeat Venous Doppler to be done here. notes unavailable to me * US venous doppler UE BI DATE: 05/18/2019 12:45 INDICATION: Left upper limb swelling. FINDINGS: The visualized portions of the right internal jugular vein, subclavian vein, axillary vein, brachial veins, basilic vein, radial vein, and ulnar vein are patent. There is thrombus in right cephalic vein. The visualized portions of the left subclavian vein, brachial veins, basilic vein, radial vein, and ulnar vein are patent. There is thrombus in left cephalic vein, internal jugular vein, and axillary vein. IMPRESSION: 1. Deep vein thrombosis involving left internal jugular vein and axillary vein. 2. Superficial vein thrombosis involving the bilateral cephalic veins. * will go to his vascular consultation in [place] on discharged * * continue Neurontin (3) PVD (peripheral vascular disease): Onset Date: Unknown Code(s): I73.9 - Peripheral vascular disease, unspecified Status: Acute Assessment and Plan: * continues to have bilateral foot pain. * lipid panel within normal limits, HLD slightly elevated * continue PT/ OT * After discharge he should follow-up with vascular surgeon and mutuel cashier (4) CAD (coronary atherosclerotic disease): Onset Date: Unknown Code(s): I25.10 - Atherosclerotic heart disease of [place] coronary artery without angina pectoris Status: Acute Assessment and Plan: * stable * Lipid panel WNL (5) Hypokalemia: Onset Date: Unknown Code(s): E87.6 - Hypokalemia Status: Acute Assessment and Plan: * resolved * continue his daily potassium chloride (6) Hyponatremia: Onset Date: Unknown Code(s): E87.1 - Hypo-osmolality and hyponatremia Status: Acute Assessment and Plan: * sodium 133 * periodical labs will be collected. (7) Chronic thrombosis of right axillary vein: Onset Date: Unknown Code(s): I82.A21 - Chronic embolism and thrombosis of right axillary vein Status: Acute Assessment and Plan: * continue warfarin with pharmacy to dose. * continue daily INRs * ultrasound indicates- US venous doppler UE BI DATE: 05/18/2019 12:45 INDICATION: Left upper limb swelling. FINDINGS: The visualized portions of the right internal jugular
--- NOTE | 2019-05-21 15:10 | PM.IMPN ---
Progress Note: A&P Assessment and Plan (1) Weakness generalized: Onset Date: ~05/15/19 Code(s): R53.1 - Weakness Status: Acute Assessment and Plan: Exhibit tolerance during physical activity as evidenced by a normal fluctuation of vital signs during physical activity. Patient will be ability to perform required activities of daily living. Provide appropriate nutrition for healing and strength. Use appropriate to prevent falls. Continue physical therapy/occupational therapy. ordered additional protein supplements throughout the day patient ambulating 400 ft standby assist/ contact guard assist (2) Numbness and tingling of both lower extremities: Onset Date: Unknown Code(s): R20.0 - Anesthesia of skin; R20.2 - Paresthesia of skin Status: Acute Assessment and Plan: possibly secondary to PVD per previous provider the CT scan of his left lower extremity, the arterial duplex studies of his lower extremities, in the venous Dopplers of his lower extremities- all these studies were done at [facility] in [place], one of the studies at [facility] stated that they couldn't visualize well and Ordered a repeat Venous Doppler to be done here. notes unavailable to me US venous doppler UE DATE: 05/18/2019 12:45 INDICATION: Left upper limb swelling. FINDINGS: The visualized portions of the right internal jugular vein, subclavian vein, axillary vein, brachial veins, basilic vein, radial vein, and ulnar vein are patent. There is thrombus in right cephalic vein. The visualized portions of the left subclavian vein, brachial veins, basilic vein, radial vein, and ulnar vein are patent. There is thrombus in left cephalic vein, internal jugular vein, and axillary vein. IMPRESSION: 1. Deep vein thrombosis involving left internal jugular vein and axillary vein. 2. Superficial vein thrombosis involving the bilateral cephalic veins. will go to his vascular consultation in [place] on discharged continue Neurontin (3) PVD (peripheral vascular disease): Onset Date: Unknown Code(s): I73.9 - Peripheral vascular disease, unspecified Status: Acute Assessment and Plan: continues to have bilateral foot pain. lipid panel within normal limits, HLD slightly elevated continue PT/ OT After discharge he should follow-up with vascular surgeon and electrical prospecting observer (4) CAD (coronary atherosclerotic disease): Onset Date: Unknown Code(s): I25.10 - Atherosclerotic heart disease of [place] coronary artery without angina pectoris Status: Acute Assessment and Plan: stable Lipid panel WNL (5) Hypokalemia: Onset Date: Unknown Code(s): E87.6 - Hypokalemia Status: Acute Assessment and Plan: resolved continue his daily potassium chloride (6) Hyponatremia: Onset Date: Unknown Code(s): E87.1 - Hypo-osmolality and hyponatremia Status: Acute Assessment and Plan: sodium 133 periodical labs will be collected. (7) Chronic thrombosis of right axillary vein: Onset Date: Unknown Code(s): I82.A21 - Chronic embolism and thrombosis of right axillary vein Status: Acute Assessment and Plan: continue warfarin with pharmacy to dose. continue daily INRs ultrasound indicates- US venous doppler UE BI DATE: 05/18/2019 12:45 INDICATION: Left upper limb swelling. FINDINGS: The visualized portions of the right internal jugular vein, subclavian vein, axillary vein, brachial veins, basilic vein, radial vein, and ulnar vein are patent. There is thrombus in right cephalic vein. The visualized portions of the left subclavian vein, brachial veins, basilic vein, radial vein, and ulnar vein are patent. There is thrombus in left cephalic vein, internal jugular vein, and axillary vein.
[2019-05-21 16:00] VITALS: BP 129/87; PULSE 90; RESP 20; TEMP 37.3; O2SAT 98
[2019-05-21 17:04] VITALS: PULSE 90
[2019-05-21] MEDS: WARFARIN (*PBKC) 2 MG, WARFARIN (*PBKC) 5 MG 7 MG PO (17:04)
[2019-05-21] MEDS: WARFARIN (*PBKC) 5 MG TABLET (17:06)
[2019-05-21] MEDS: WARFARIN (*PBKC) 2 MG TABLET (17:06)
[2019-05-21] MEDS: TRAZODONE HCL 50 MG TABLET 100 MG PO (20:19)
[2019-05-22 00:41] VITALS: BP 129/77; PULSE 78; RESP 16; TEMP 36.4; O2SAT 97
[2019-05-22] MEDS: LEVOTHYROXINE SODIUM 25 MCG TABLET PO (05:39)
[2019-05-22 08:00] VITALS: BP 106/64; PULSE 120; RESP 18; TEMP 36.8; O2SAT 99
--- NOTE | 2019-05-22 08:29 | ECG_ITS ---
Measurements Intervals [place] Rate: 110 P: 36 WA: 175 QRS: 55 QRSD: 81 T: 22 QT: 338 QTc: 458 Interpretive Statements SINUS TACHYCARDIA EARLY PRECORDIAL R/S TRANSITION MINIMAL Q WAVES- DIFFUSE LEADS BORDERLINE T WAVE ABNORMALITY- INFERIOR LEADS ABNORMAL ECG Electronically Signed On 05-22-2019 8:48:02 CDT by Cruz Pickard D.O.
[2019-05-22 09:03] LABS: Hematocrit 32.3 % (40.0-54.0); Hemoglobin 10.5 g/dL (14.0-18.0); Mean Corpuscular HGB Conc 32.5 g/dL (32.0-36.0); Mean Corpuscular Hemoglobin 32.3 pg (27.0-31.0); Mean Corpuscular Volume 99.4 fL (78.0-102.0); Mean Platelet Volume 8.8 fl (8.7-11.0); Platelet Count Result 428 K/mm3 (150-420); Red Blood Count 3.25 M/mm3 (4.70-6.10); Red Cell Distribution Width 14.1 % (11.6-14.4)
[2019-05-22 09:14] LABS: INR 1.9; Prothrombin Time 19.3 Seconds (9.64-11.0)
[2019-05-22 09:25] VITALS: PULSE 120
[2019-05-22] MEDS: POTASSIUM CHLORIDE 20 MEQ TABLET PO (09:25)
[2019-05-22] MEDS: CHOLESTYRAMINE (W/ SUGAR) 4 GM POWD.PACK PO ×2 (09:25→17:35)
[2019-05-22] MEDS: FLUTICASONE PROPIONATE 0.05% NA SPR 16 GM BTL (*BKC) 2 SPRAY NASAL ×2 (09:25→20:57)
[2019-05-22] MEDS: METOPROLOL TARTRATE 25 MG TABLET PO ×2 (09:25→17:35)
[2019-05-22] MEDS: ASPIRIN 81 MG CHEWABLE TABLET PO (09:25)
[2019-05-22] MEDS: SACCHAROMYCES BOULARDII 250 MG CAPSULE PO ×2 (09:25→17:35)
[2019-05-22] MEDS: FOLIC ACID 1 MG TABLET PO (09:25)
[2019-05-22] MEDS: ASCORBIC ACID 500 MG TABLET PO (09:26)
[2019-05-22] MEDS: THIAMINE HCL 100 MG TABLET PO (09:26)
[2019-05-22] MEDS: MAGNESIUM OXIDE 400 MG TABLET PO ×3 (09:26→17:39)
[2019-05-22] MEDS: FAMOTIDINE 20 MG TABLET PO (09:26)
[2019-05-22] MEDS: ACETAMINOPHEN 500 MG TABLET 1000 MG PO ×2 (09:26→17:40)
[2019-05-22] MEDS: TAMSULOSIN HCL 0.4 MG CAPSULE PO ×2 (09:26→17:39)
[2019-05-22] MEDS: GABAPENTIN 300 MG CAPSULE PO ×3 (09:26→17:39)
[2019-05-22] MEDS: FERROUS SULFATE 324 MG TABLET PO (09:26)
[2019-05-22] MEDS: FUROSEMIDE 40 MG TABLET PO (09:26)
[2019-05-22 09:52] LABS: Alanine Aminotransferase 73 U/L (16-63); Albumin Level 1.9 g/dL (3.4-5.0); Alkaline Phosphatase 76 U/L (46-116); Anion Gap 13.1 mmol/L (7-16); Aspartate Amino Transferase 36 U/L (15-37); Bilirubin,Total 0.2 mg/dL (0.00-1.00); Blood Urea Nitrogen 6 mg/dL (7-18); Calcium 7.7 mg/dL (8.5-10.1); Carbon Dioxide 24 mmol/L (21-32); Chloride 105 mmol/L (98-108); Estimated CRCL calculation 110 ml/min; Estimated Glomerular Filt Rate > 60; Glucose 117 mg/dL (70-99); Osmolality Calculated 284 mOsm/kg (285-295); Potassium 4.1 mmol/L (3.5-5.1); Sodium 138 mmol/L (136-145); Total Protein 4.6 g/dL (6.4-8.2); Troponin I 0.03 ng/mL (0.00-0.056)
--- NOTE | 2019-05-22 10:30 | PC.NURSE ---
Patient transported off of floor for therapy
--- NOTE | 2019-05-22 11:12 | PC.NURSE ---
Patient transported back to floor from therapy
--- NOTE | 2019-05-22 15:06 | PC.NURSE ---
Patient transported off of floor for therapy
[2019-05-22 16:00] VITALS: BP 117/81; PULSE 106; RESP 20; TEMP 36.3; O2SAT 99
[2019-05-22 17:35] VITALS: PULSE 106
[2019-05-22] MEDS: WARFARIN (*PBKC) 2 MG TABLET 6 MG PO (17:39)
[2019-05-22] MEDS: ONDANSETRON HCL ODT 4 MG TABLET PO (18:43)
--- NOTE | 2019-05-22 19:15 | PC.NURSE ---
Resting in bed on left side, no distress noted, no evidence of pain, all personal items in reach of patient
[2019-05-22] MEDS: TRAZODONE HCL 50 MG TABLET 100 MG PO (20:59)
--- NOTE | 2019-05-22 21:12 | PC.NURSE ---
Denies needs, trazadone given per patient request, denies pain, personal items in reach, reminded to call for assistance up
--- NOTE | 2019-05-22 22:23 | PC.NURSE ---
Resting quietly, call light inre ach
[2019-05-23 02:13] VITALS: BP 138/75; PULSE 85; RESP 18; TEMP 36.7; O2SAT 96
[2019-05-23] MEDS: LEVOTHYROXINE SODIUM 25 MCG TABLET PO (05:37)
[2019-05-23 07:32] LABS: INR 1.8; Prothrombin Time 18.1 Seconds (9.64-11.0)
[2019-05-23 07:43] VITALS: BP 140/89; PULSE 101; RESP 20; TEMP 36.3; O2SAT 97
--- NOTE | 2019-05-23 07:47 | PC.NURSE ---
Resting in bed, To hose on, states still pain in feet when walking, edema to upper extremities improved, no chest pain, no sob
[2019-05-23] MEDS: CHOLESTYRAMINE (W/ SUGAR) 4 GM POWD.PACK PO ×2 (08:04→16:30)
[2019-05-23] MEDS: ASCORBIC ACID 500 MG TABLET PO (08:05)
[2019-05-23] MEDS: FLUTICASONE PROPIONATE 0.05% NA SPR 16 GM BTL (*BKC) 2 SPRAY NASAL ×2 (08:05→20:42)
[2019-05-23] MEDS: METOPROLOL TARTRATE 25 MG TABLET PO (08:05)
[2019-05-23] MEDS: GABAPENTIN 300 MG CAPSULE PO (08:06)
[2019-05-23] MEDS: FUROSEMIDE 40 MG TABLET PO (08:06)
[2019-05-23] MEDS: FERROUS SULFATE 324 MG TABLET PO (08:06)
[2019-05-23] MEDS: TAMSULOSIN HCL 0.4 MG CAPSULE PO ×2 (08:06→16:33)
[2019-05-23] MEDS: MAGNESIUM OXIDE 400 MG TABLET PO ×3 (08:06→16:33)
[2019-05-23] MEDS: FOLIC ACID 1 MG TABLET PO (08:07)
[2019-05-23] MEDS: SACCHAROMYCES BOULARDII 250 MG CAPSULE PO ×2 (08:07→16:33)
[2019-05-23] MEDS: ASPIRIN 81 MG CHEWABLE TABLET PO (08:07)
[2019-05-23] MEDS: THIAMINE HCL 100 MG TABLET PO (08:07)
[2019-05-23] MEDS: FAMOTIDINE 20 MG TABLET PO (08:07)
--- NOTE | 2019-05-23 09:04 | P.PNIM_ITS ---
Progress Note: A&P Assessment and Plan (1) Weakness generalized: Onset Date: ~05/15/19 Code(s): R53.1 - Weakness Status: Acute Assessment and Plan: * Exhibit tolerance during physical activity as evidenced by a normal fluctuation of vital signs during physical activity. * Patient will be ability to perform required activities of daily living. * Provide appropriate nutrition for healing and strength. * Use appropriate to prevent falls. * Continue physical therapy/occupational therapy. * ordered additional protein supplements throughout the day * patient ambulating 400 ft standby assist/ contact guard assist (2) Numbness and tingling of both lower extremities: Onset Date: Unknown Code(s): R20.0 - Anesthesia of skin; R20.2 - Paresthesia of skin Status: Acute Assessment and Plan: * IMPROVING * possibly secondary to PVD * per previous provider the CT scan of his left lower extremity, the arterial duplex studies of his lower extremities, in the venous Dopplers of his lower extremities- all these studies were done at [facility] in [place], one of the studies at [place] stated that they couldn't visualize well and Ordered a repeat Venous Doppler to be done here. notes unavailable to me * US venous doppler UE BI DATE: 05/18/2019 12:45 INDICATION: Left upper limb swelling. FINDINGS: The visualized portions of the right internal jugular vein, subclavian vein, axillary vein, brachial veins, basilic vein, radial vein, and ulnar vein are patent. There is thrombus in right cephalic vein. The visualized portions of the left subclavian vein, brachial veins, basilic vein, radial vein, and ulnar vein are patent. There is thrombus in left cephalic vein, internal jugular vein, and axillary vein. IMPRESSION: 1. Deep vein thrombosis involving left internal jugular vein and axillary vein. 2. Superficial vein thrombosis involving the bilateral cephalic veins. * will go to his vascular consultation in [place] on discharged * INCREASE GABAPENTIN TO 400 MG T.I.D. INSTEAD OF 300 MG T.I.D. (3) PVD (peripheral vascular disease): Onset Date: Unknown Code(s): I73.9 - Peripheral vascular disease, unspecified Status: Acute Assessment and Plan: * continues to have bilateral foot pain WITH IMPROVEMENT * lipid panel within normal limits, HLD slightly elevated * continue PT/ OT * After discharge he should follow-up with vascular surgeon and polishing machine operator (4) CAD (coronary atherosclerotic disease): Onset Date: Unknown Code(s): I25.10 - Atherosclerotic heart disease of [place] coronary artery without angina pectoris Status: Acute Assessment and Plan: * stable * Lipid panel WNL (5) Hypokalemia: Onset Date: Unknown Code(s): E87.6 - Hypokalemia Status: Acute Assessment and Plan: * resolved * continue his daily potassium chloride (6) Hyponatremia: Onset Date: Unknown Code(s): E87.1 - Hypo-osmolality and hyponatremia Status: Acute Assessment and Plan: * sodium 133 * periodical labs will be collected. (7) Chronic thrombosis of right axillary vein: Onset Date: Unknown Code(s): I82.A21 - Chronic embolism and thrombosis of right axillary vein Status: Acute Assessment and Plan: * continue warfarin with pharmacy to dose. * continue daily INRs * ultrasound indicates- US venous doppler UE BI DATE: 05/18/2019 12:45 INDICATION: Left upper limb swelling
--- NOTE | 2019-05-23 09:04 | PM.IMPN ---
Progress Note: A&P Assessment and Plan (1) Weakness generalized: Onset Date: ~05/15/19 Code(s): R53.1 - Weakness Status: Acute Assessment and Plan: Exhibit tolerance during physical activity as evidenced by a normal fluctuation of vital signs during physical activity. Patient will be ability to perform required activities of daily living. Provide appropriate nutrition for healing and strength. Use appropriate to prevent falls. Continue physical therapy/occupational therapy. ordered additional protein supplements throughout the day patient ambulating 400 ft standby assist/ contact guard assist (2) Numbness and tingling of both lower extremities: Onset Date: Unknown Code(s): R20.0 - Anesthesia of skin; R20.2 - Paresthesia of skin Status: Acute Assessment and Plan: IMPROVING possibly secondary to PVD per previous provider the CT scan of his left lower extremity, the arterial duplex studies of his lower extremities, in the venous Dopplers of his lower extremities- all these studies were done at [facility] in [place], one of the studies at [facility] stated that they couldn't visualize well and Ordered a repeat Venous Doppler to be done here. notes unavailable to me US venous doppler UE DATE: 05/18/2019 12:45 INDICATION: Left upper limb swelling. FINDINGS: The visualized portions of the right internal jugular vein, subclavian vein, axillary vein, brachial veins, basilic vein, radial vein, and ulnar vein are patent. There is thrombus in right cephalic vein. The visualized portions of the left subclavian vein, brachial veins, basilic vein, radial vein, and ulnar vein are patent. There is thrombus in left cephalic vein, internal jugular vein, and axillary vein. IMPRESSION: 1. Deep vein thrombosis involving left internal jugular vein and axillary vein. 2. Superficial vein thrombosis involving the bilateral cephalic veins. will go to his vascular consultation in [place] on discharged INCREASE GABAPENTIN TO 400 MG T.I.D. INSTEAD OF 300 MG T.I.D. (3) PVD (peripheral vascular disease): Onset Date: Unknown Code(s): I73.9 - Peripheral vascular disease, unspecified Status: Acute Assessment and Plan: continues to have bilateral foot pain WITH IMPROVEMENT lipid panel within normal limits, HLD slightly elevated continue PT/ OT After discharge he should follow-up with vascular surgeon and liaison planner (4) CAD (coronary atherosclerotic disease): Onset Date: Unknown Code(s): I25.10 - Atherosclerotic heart disease of [place] coronary artery without angina pectoris Status: Acute Assessment and Plan: stable Lipid panel WNL (5) Hypokalemia: Onset Date: Unknown Code(s): E87.6 - Hypokalemia Status: Acute Assessment and Plan: resolved continue his daily potassium chloride (6) Hyponatremia: Onset Date: Unknown Code(s): E87.1 - Hypo-osmolality and hyponatremia Status: Acute Assessment and Plan: sodium 133 periodical labs will be collected. (7) Chronic thrombosis of right axillary vein: Onset Date: Unknown Code(s): I82.A21 - Chronic embolism and thrombosis of right axillary vein Status: Acute Assessment and Plan: continue warfarin with pharmacy to dose. continue daily INRs ultrasound indicates- US venous doppler UE BI DATE: 05/18/2019 12:45 INDICATION: Left upper limb swelling. FINDINGS: The visualized portions of the right internal jugular vein, subclavian vein, axillary vein, brachial veins, basilic vein, radial vein, and ulnar vein are patent. There is thrombus in right cephalic vein. The visualized portions of the left subclavian vein, brachial veins, basilic vein, radial vein, and ulnar vein are patent. There is thrombus in left cephalic vein, internal jugular vein, and axillary vein. IMP
[2019-05-23 09:49] LABS: Troponin I 0.03 ng/mL (0.00-0.056)
--- NOTE | 2019-05-23 10:30 | PC.NURSE ---
Up in [place] with therapy walking with walker
[2019-05-23 10:37] VITALS: PULSE 101
--- NOTE | 2019-05-23 10:54 | PC.NURSE ---
YONY hose removed to wash them, states they have been on for 3 days,
--- NOTE | 2019-05-23 12:01 | PC.NURSE ---
Sitting on edge of bed eating lunch, denies needs
--- NOTE | 2019-05-23 13:00 | PC.NURSE ---
afternoon meds given, denies needs, resting quietly with call light inr each of patient
[2019-05-23] MEDS: GABAPENTIN 400 MG CAPSULE PO ×2 (13:03→16:31)
--- NOTE | 2019-05-23 14:02 | PC.NURSE ---
Napping at intervals, denies needs
--- NOTE | 2019-05-23 15:00 | PC.NURSE ---
Watching TV, denies needs, fresh water given
[2019-05-23 16:00] VITALS: BP 115/73; PULSE 95; RESP 18; TEMP 36.3; O2SAT 95
--- NOTE | 2019-05-23 16:05 | PC.NURSE ---
Remains in bed alternating sides to stay off coccyx, dressing in place
[2019-05-23] MEDS: WARFARIN (*PBKC) 2 MG TABLET 6 MG PO (16:32)
--- NOTE | 2019-05-23 17:00 | PC.NURSE ---
Sitting on edge of bed eating dinner, denies needs
--- NOTE | 2019-05-23 18:09 | PC.NURSE ---
Denies needs, personal items in reach, watching TV, no visitors today
[2019-05-23] MEDS: METOPROLOL TARTRATE TAB 25 MG, METOPROLOL TARTRATE TAB 12.5 MG 37.5 MG PO (20:41)
[2019-05-23] MEDS: TRAZODONE HCL 50 MG TABLET 150 MG PO (20:43)
--- NOTE | 2019-05-23 20:45 | PC.NURSE ---
Patient took HS meds without difficulty. No distress noted. Call light in reach.
--- NOTE | 2019-05-23 21:00 | PC.NURSE ---
Patient in bed watching tv. No distress noted. Call light in reach.
--- NOTE | 2019-05-23 22:05 | PC.NURSE ---
Patient appears to be sleeping by the rise and fall of his chest. No distress noted. Call light in reach.
--- NOTE | 2019-05-23 23:05 | PC.NURSE ---
Patient appears to be sleeping by the rise and fall of his chest. Respirations even and unlabored. No distress noted. Call light in reach.
[2019-05-24] VITALS: BP 99/50; PULSE 88; RESP 18; TEMP 36.7; O2SAT 98
--- NOTE | 2019-05-24 | PC.NURSE ---
Patient awakened easily for VS. Respirations even and unlabored. No distress noted. Call light in reach.
--- NOTE | 2019-05-24 01:10 | PC.NURSE ---
Patient appears to be sleeping by the rise and fall of his chest. Respirations even and unlabored. No distress noted. Call light in reach.
--- NOTE | 2019-05-24 02:05 | PC.NURSE ---
Patient appears to be sleeping by the rise and fall of his chest. Respirations even and unlabored. No distress noted. Call light in reach.
--- NOTE | 2019-05-24 03:09 | PC.NURSE ---
Patient appears to be sleeping by the rise and fall of his chest. Respirations even and unlabored. No distress noted. Call light in reach.
--- NOTE | 2019-05-24 04:26 | PC.NURSE ---
Patient awake when nurse entered room to empty urinal. Urine clear yellow. Patient denies pain/complaints/needs @ this time. No distress noted. Call light in reach.
--- NOTE | 2019-05-24 05:05 | PC.NURSE ---
Patient appears to be sleeping by the rise and fall of his chest. Respirations even and unlabored. No distress noted. Call light in reach.
--- NOTE | 2019-05-24 06:10 | PC.NURSE ---
Patient appears to be sleeping by the rise and fall of his chest. Respirations even and unlabored. No distress noted. Call light in reach.
[2019-05-24] MEDS: LEVOTHYROXINE SODIUM 25 MCG TABLET PO (06:26)
[2019-05-24 07:48] LABS: INR 1.8; Prothrombin Time 18.1 Seconds (9.64-11.0)
[2019-05-24 07:54] VITALS: BP 132/78; PULSE 89; RESP 20; TEMP 36.6; O2SAT 97
[2019-05-24 07:54] LABS: Troponin I 0.02 ng/mL (0.00-0.056)
--- NOTE | 2019-05-24 07:59 | PC.NURSE ---
Patient reports that he is noting some increase swelling to right arm today, states ID bracelet is sticking today and wasn't doing this yesterday, no distress noted
[2019-05-24 08:28] VITALS: PULSE 89
[2019-05-24] MEDS: METOPROLOL TARTRATE TAB 25 MG, METOPROLOL TARTRATE TAB 12.5 MG 37.5 MG PO ×2 (08:28→20:25)
[2019-05-24] MEDS: CHOLESTYRAMINE (W/ SUGAR) 4 GM POWD.PACK PO ×2 (08:28→16:34)
[2019-05-24] MEDS: SACCHAROMYCES BOULARDII 250 MG CAPSULE PO ×2 (08:29→16:35)
[2019-05-24] MEDS: FLUTICASONE PROPIONATE 0.05% NA SPR 16 GM BTL (*BKC) 2 SPRAY NASAL ×2 (08:29→20:24)
[2019-05-24] MEDS: MAGNESIUM OXIDE 400 MG TABLET PO ×3 (08:30→16:36)
[2019-05-24] MEDS: ASCORBIC ACID 500 MG TABLET PO (08:30)
[2019-05-24] MEDS: GABAPENTIN 400 MG CAPSULE PO ×3 (08:30→16:36)
[2019-05-24] MEDS: ASPIRIN 81 MG CHEWABLE TABLET PO (08:31)
[2019-05-24] MEDS: FUROSEMIDE 40 MG TABLET PO (08:31)
[2019-05-24] MEDS: FOLIC ACID 1 MG TABLET PO (08:31)
[2019-05-24] MEDS: FAMOTIDINE 20 MG TABLET PO (08:32)
[2019-05-24] MEDS: TAMSULOSIN HCL 0.4 MG CAPSULE PO ×2 (08:32→16:34)
[2019-05-24] MEDS: FERROUS SULFATE 324 MG TABLET PO (08:32)
[2019-05-24] MEDS: THIAMINE HCL 100 MG TABLET PO (08:32)
[2019-05-24] MEDS: POTASSIUM CHLORIDE 20 MEQ TABLET PO (08:33)
--- NOTE | 2019-05-24 09:00 | PC.NURSE ---
Resting in bed watching TV, denies needs
--- NOTE | 2019-05-24 10:00 | PC.NURSE ---
Resting in bed, denies needs
--- NOTE | 2019-05-24 10:41 | P.PNIM_ITS ---
Progress Note: A&P Assessment and Plan (1) Weakness generalized: Onset Date: ~05/15/19 <JIMENA Holguin - Last Filed: 05/24/19 10:43> Code(s): R53.1 - Weakness <JIMENA Holguin - Last Filed: 05/24/19 10:43> Status: Acute <JIMENA Holguin - Last Filed: 05/24/19 10:43> Assessment and Plan: * Exhibit tolerance during physical activity as evidenced by a normal fluctuation of vital signs during physical activity. * Patient will be ability to perform required activities of daily living. * Provide appropriate nutrition for healing and strength. * Use appropriate to prevent falls. * Continue physical therapy/occupational therapy. * ordered additional protein supplements throughout the day * patient ambulating 400 ft standby assist/ contact guard assist <JIMENA Holguin - Last Filed: 05/24/19 10:43> (2) Numbness and tingling of both lower extremities: Onset Date: Unknown <JIMENA Holguin - Last Filed: 05/24/19 10:43> Code(s): R20.0 - Anesthesia of skin; R20.2 - Paresthesia of skin <JIMENA Holguin - Last Filed: 05/24/19 10:43> Status: Acute <JIMENA Holguin - Last Filed: 05/24/19 10:43> Assessment and Plan: * IMPROVING * possibly secondary to PVD * per previous provider the CT scan of his left lower extremity, the arterial duplex studies of his lower extremities, in the venous Dopplers of his lower extremities- all these studies were done at [facility] in [place], one of the studies at [place]' stated that they couldn't visualize well and Ordered a repeat Venous Doppler to be done here. notes unavailable to me * US venous doppler UE DATE: 05/18/2019 12:45 INDICATION: Left upper limb swelling. FINDINGS: The visualized portions of the right internal jugular vein, subclavian vein, axillary vein, brachial veins, basilic vein, radial vein, and ulnar vein are patent. There is thrombus in right cephalic vein. The visualized portions of the left subclavian vein, brachial veins, basilic vein, radial vein, and ulnar vein are patent. There is thrombus in left cephalic vein, internal jugular vein, and axillary vein. IMPRESSION: 1. Deep vein thrombosis involving left internal jugular vein and axillary vein. 2. Superficial vein thrombosis involving the bilateral cephalic veins. * will go to his vascular consultation in [place] on discharged * INCREASE GABAPENTIN TO 400 MG T.I.D. INSTEAD OF 300 MG T.I.D. <JIMENA Holguin - Last Filed: 05/24/19 10:43> (3) PVD (peripheral vascular disease): Onset Date: Unknown <KINGA Holguin-C - Last Filed: 05/24/19 10:43> Code(s): I73.9 - Peripheral vascular disease, unspecified <KINGA Holguin-C - Last Filed: 05/24/19 10:43> Status: Acute <KINGA Holguin-C - Last Filed: 05/24/19 10:43> Assessment and Plan: * continues to have bilateral foot pain WITH IMPROVEMENT * lipid panel within normal limits, HLD slightly elevated * continue PT/ OT * After discharge he should follow-up with vascular surgeon and dishwasher preparer <JIMENA Holguin - Last Filed: 05/24/19 10:43> (4) CAD (coronary atherosclerotic disease): Onset Date: Unknown <KINGA Holguin-C - Last Filed: 05/24/19 10:43> Code(s): I25.10 - Atherosclerotic heart disease of [place] coronary artery without angina pectoris <KINGA Holguin-C - Last Filed: 05/24/19 10:43> Status: Acute <KINGA Holguin-C - Last Filed: 05/24/19 10:43> Assessment and Plan:
--- NOTE | 2019-05-24 10:41 | PM.IMPN ---
Progress Note: A&P Assessment and Plan (1) Weakness generalized: Onset Date: ~05/15/19 <JIMENA Holguin - Last Filed: 05/24/19 10:43> Code(s): R53.1 - Weakness <JIMENA Holguin - Last Filed: 05/24/19 10:43> Status: Acute <JIMENA Holguin - Last Filed: 05/24/19 10:43> Assessment and Plan: Exhibit tolerance during physical activity as evidenced by a normal fluctuation of vital signs during physical activity. Patient will be ability to perform required activities of daily living. Provide appropriate nutrition for healing and strength. Use appropriate to prevent falls. Continue physical therapy/occupational therapy. ordered additional protein supplements throughout the day patient ambulating 400 ft standby assist/ contact guard assist <JIMENA Holguin - Last Filed: 05/24/19 10:43> (2) Numbness and tingling of both lower extremities: Onset Date: Unknown <JIMENA Holguin - Last Filed: 05/24/19 10:43> Code(s): R20.0 - Anesthesia of skin; R20.2 - Paresthesia of skin <JIMENA Holguin - Last Filed: 05/24/19 10:43> Status: Acute <JIMENA Holguin - Last Filed: 05/24/19 10:43> Assessment and Plan: IMPROVING possibly secondary to PVD per previous provider the CT scan of his left lower extremity, the arterial duplex studies of his lower extremities, in the venous Dopplers of his lower extremities- all these studies were done at [facility] in [place], one of the studies at [place]' stated that they couldn't visualize well and Ordered a repeat Venous Doppler to be done here. notes unavailable to me US venous doppler UE DATE: 05/18/2019 12:45 INDICATION: Left upper limb swelling. FINDINGS: The visualized portions of the right internal jugular vein, subclavian vein, axillary vein, brachial veins, basilic vein, radial vein, and ulnar vein are patent. There is thrombus in right cephalic vein. The visualized portions of the left subclavian vein, brachial veins, basilic vein, radial vein, and ulnar vein are patent. There is thrombus in left cephalic vein, internal jugular vein, and axillary vein. IMPRESSION: 1. Deep vein thrombosis involving left internal jugular vein and axillary vein. 2. Superficial vein thrombosis involving the bilateral cephalic veins. will go to his vascular consultation in [place] on discharged INCREASE GABAPENTIN TO 400 MG T.I.D. INSTEAD OF 300 MG T.I.D. <Kenton BraggMarcelina Burris EMPLOYEE REPRESENTATIVE-Mari - Last Filed: 05/24/19 10:43> (3) PVD (peripheral vascular disease): Onset Date: Unknown <Kenton BraggMarcelina Dayton EMPLOYEE REPRESENTATIVE-C - Last Filed: 05/24/19 10:43> Code(s): I73.9 - Peripheral vascular disease, unspecified <Kenton Burris EMPLOYEE REPRESENTATIVE-C - Last Filed: 05/24/19 10:43> Status: Acute <Kenton Burris KINGA-C - Last Filed: 05/24/19 10:43> Assessment and Plan: continues to have bilateral foot pain WITH IMPROVEMENT lipid panel within normal limits, HLD slightly elevated continue PT/ OT After discharge he should follow-up with vascular surgeon and telesales consultant <Kenton BraggMarcelina Burris EMPLOYEE REPRESENTATIVE-C - Last Filed: 05/24/19 10:43> (4) CAD (coronary atherosclerotic disease): Onset Date: Unknown <Kenton Burris KINGA-C - Last Filed: 05/24/19 10:43> Code(s): I25.10 - Atherosclerotic heart disease of [place] coronary artery without angina pectoris <Kenton BraggMarcelina Burris EMPLOYEE REPRESENTATIVE-C - Last Filed: 05/24/19 10:43> Status: Acute <Kenton Burris EMPLOYEE REPRESENTATIVE-C - Last Filed: 05/24/19 10:43> Assessment and Plan: stable Lipid panel WNL <Kenton BraggMarcelina Burris EMPLOYEE REPRESENTATIVE-C - Last Filed: 05/24/19 10:43> (5) Hypokalemia: Onset Date: Unknown <Kenton BraggMarcelina Burris EMPLOYEE REPRESENTATIVE-C - Last Filed: 05/24/19 10:43> Code(s): E87.6 - Hypokalemia <Kenton BraggMarcelina Burris EMPLOYEE REPRESENTATIVE-C - Last Filed: 05/24/19 10:43> Status:
--- NOTE | 2019-05-24 10:53 | PC.NURSE ---
Up with staff and walked in [place], tolerated well, denies pain, no sob noted, back to bed with call light in reach
--- NOTE | 2019-05-24 11:23 | PC.NURSE ---
SBA up to void, tolerated well
--- NOTE | 2019-05-24 12:30 | PC.NURSE ---
Ate well for lunch, denies needs
[2019-05-24] MEDS: PHARMACIST COMMUNICATION ORDER 1 EACH XX (12:59)
--- NOTE | 2019-05-24 13:58 | PC.NURSE ---
Resting in bed, denies needs
[2019-05-24 15:38] VITALS: BP 128/72; PULSE 92; RESP 18; TEMP 36.6; O2SAT 98
--- NOTE | 2019-05-24 15:39 | PC.NURSE ---
Resting in bed denies needs
--- NOTE | 2019-05-24 17:03 | PC.NURSE ---
Sitting on edge of bed for dinner, denies needs
[2019-05-24] MEDS: ACETAMINOPHEN 500 MG TABLET 1000 MG PO (18:02)
--- NOTE | 2019-05-24 18:10 | PC.NURSE ---
Tylenol given for neck pain, denies any other complaints, resting quietly watching TV
--- NOTE | 2019-05-24 19:00 | PC.NURSE ---
Patient lying in bed watching tv. Denies pain/complaints/needs @ this time. No distress noted. Call light in reach.
[2019-05-24 20:25] VITALS: PULSE 72
[2019-05-24] MEDS: TRAZODONE HCL 50 MG TABLET 150 MG PO (20:25)
--- NOTE | 2019-05-24 21:05 | PC.NURSE ---
Patient lying in bed watching tv. Denies pain/complaints/needs @ this time. No distress noted. Call light in reach.
--- NOTE | 2019-05-24 21:40 | PC.NURSE ---
Patient ambulated to/from bathroom using walker and SBA with steady gait. Patient had another large loose bm. Patient tolerated ambulating well with no SOB noted. No distress noted. Call light in reach.
--- NOTE | 2019-05-24 21:40 | PC.NURSE ---
Patient ambulated to/from bathroom using walker and SBA with steady gait. Patient had large loose bm. Patient tolerated ambulating well with no SOB noted. No distress noted. Call light in reach.
--- NOTE | 2019-05-24 23:10 | PC.NURSE ---
Patient appears to be sleeping by the rise and fall of his chest. Respirations even and unlabored. No distress noted. Call light in reach.
[2019-05-25] VITALS: BP 106/65; PULSE 86; RESP 20; TEMP 36.3; O2SAT 95
--- NOTE | 2019-05-25 01:00 | PC.NURSE ---
Patient called for nurse to come to room. Patient already on bedside commode and says he couldn't wait. Patient had a large brown, runny bm. Patient able to clean himself just couldn't reach the wipes. Patient denies any other pain/complaints/needs @ this time. No distress noted. Call light in reach.
--- NOTE | 2019-05-25 02:00 | PC.NURSE ---
Patient appears to be sleeping by the rise and fall of his chest. Respirations even and unlabored. No distress noted. Call light in reach.
--- NOTE | 2019-05-25 02:40 | PC.NURSE ---
Patient called for nurse assist. Patient once again sitting on bedside commode and said he couldn't make it to the bathroom. Patient cleaned himself. Bedside commode emptied of liquid stool. Nurse asked patient if he gets diarrhea often and he said sometimes. Nurse told patient she would see about getting something for diarrhea from dr and patient said not to because he doesn't want to have to do stool samples and all that crap . Patient back in bed. No distress noted. Call light in reach.
--- NOTE | 2019-05-25 03:20 | PC.NURSE ---
Patient appears to be sleeping by the rise and fall of his chest. Respirations even and unlabored. No distress noted. Call light in reach.
--- NOTE | 2019-05-25 04:00 | PC.NURSE ---
Patient appears to be sleeping by the rise and fall of his chest. Respirations even and unlabored. No distress noted. Call light in reach.
--- NOTE | 2019-05-25 05:00 | PC.NURSE ---
Patient appears to be sleeping by the rise and fall of his chest. Respirations even and unlabored. No distress noted. Call light in reach.
[2019-05-25 06:02] LABS: Basophils Absolute Auto 0.04 K/mm3 (0.00-0.10); Basophils Percent Auto 0.4 % (0.0-1.0); Eosinophils Absolute Auto 0.33 K/mm3 (0.02-0.50); Eosinophils Percent Auto 3.3 % (1.0-6.0); Hematocrit 30.4 % (40.0-54.0); Hemoglobin 9.7 g/dL (14.0-18.0); Immature Granulocyte Absolute 0.06 K/mm3 (0.00-0.00); Immature Granulocyte Percent A 0.6 % (0.0-0.0); Lymphocytes Absolute Auto 1.97 K/mm3 (1.10-4.50); Lymphocytes Percent Auto 19.6 % (18.0-42.0); Mean Corpuscular HGB Conc 31.9 g/dL (32.0-36.0); Mean Corpuscular Hemoglobin 31.7 pg (27.0-31.0); Mean Corpuscular Volume 99.3 fL (78.0-102.0); Mean Platelet Volume 9.4 fl (8.7-11.0); Monocytes Absolute Auto 1.02 K/mm3 (0.10-0.90); Monocytes Percent Auto 10.1 % (2.0-11.0); Neutrophils Absolute Auto 6.7 K/mm3 (1.7-7.2); Platelet Count Result 413 K/mm3 (150-420); Red Blood Count 3.06 M/mm3 (4.70-6.10); Red Cell Distribution Width 14.1 % (11.6-14.4); White Blood Count 10.1 K/mm3 (4.8-10.8)
[2019-05-25] MEDS: LOPERAMIDE HCL 2 MG CAPSULE PO ×3 (06:04→19:50)
[2019-05-25] MEDS: LEVOTHYROXINE SODIUM 25 MCG TABLET PO (06:04)
[2019-05-25 06:07] LABS: INR 1.7; Prothrombin Time 17.1 Seconds (9.64-11.0)
--- NOTE | 2019-05-25 06:08 | PC.NURSE ---
Patient had another liquid stool. Stool sample collected for lab. Patient then given Lopiramide along with scheduled AM med. Denies any pain/complaints/needs @ this time. No distress noted. Call light in reach.
[2019-05-25 06:17] LABS: Alanine Aminotransferase 66 U/L (16-63); Albumin Level 1.9 g/dL (3.4-5.0); Alkaline Phosphatase 81 U/L (46-116); Aspartate Amino Transferase 38 U/L (15-37); Bilirubin,Total 0.2 mg/dL (0.00-1.00); Blood Urea Nitrogen 8 mg/dL (7-18); Calcium 7.8 mg/dL (8.5-10.1); Carbon Dioxide 24 mmol/L (21-32); Chloride 106 mmol/L (98-108); Estimated CRCL calculation 114 ml/min; Estimated Glomerular Filt Rate > 60; Glucose 81 mg/dL (70-99); Osmolality Calculated 281 mOsm/kg (285-295); Sodium 137 mmol/L (136-145)
[2019-05-25 08:00] VITALS: BP 129/75; PULSE 90; RESP 20; TEMP 36.6; O2SAT 94
[2019-05-25] MEDS: CHOLESTYRAMINE (W/ SUGAR) 4 GM POWD.PACK PO ×2 (08:31→17:46)
[2019-05-25] MEDS: SACCHAROMYCES BOULARDII 250 MG CAPSULE PO ×2 (08:31→17:49)
[2019-05-25] MEDS: FLUTICASONE PROPIONATE 0.05% NA SPR 16 GM BTL (*BKC) 2 SPRAY NASAL ×2 (08:31→20:38)
[2019-05-25] MEDS: MAGNESIUM OXIDE 400 MG TABLET PO ×3 (08:33→17:46)
[2019-05-25] MEDS: ASPIRIN 81 MG CHEWABLE TABLET PO (08:33)
[2019-05-25] MEDS: FUROSEMIDE 40 MG TABLET PO (08:33)
[2019-05-25] MEDS: FOLIC ACID 1 MG TABLET PO (08:33)
[2019-05-25] MEDS: ASCORBIC ACID 500 MG TABLET PO (08:33)
[2019-05-25] MEDS: TAMSULOSIN HCL 0.4 MG CAPSULE PO ×2 (08:33→17:47)
[2019-05-25] MEDS: THIAMINE HCL 100 MG TABLET PO (08:33)
[2019-05-25] MEDS: GABAPENTIN 400 MG CAPSULE PO ×3 (08:33→17:46)
[2019-05-25] MEDS: FAMOTIDINE 20 MG TABLET PO (08:33)
[2019-05-25] MEDS: FERROUS SULFATE 324 MG TABLET PO (08:33)
[2019-05-25 16:00] VITALS: BP 126/69; PULSE 98; RESP 20; TEMP 36.6; O2SAT 98
[2019-05-25] MEDS: ACETAMINOPHEN 500 MG TABLET 1000 MG PO (17:51)
--- NOTE | 2019-05-25 20:00 | PC.NURSE ---
Patient had moderate sized watery stool. Requested/given PRN diarrhea medicine. Denies any other pain/complaints/needs @ this time. No distress noted. Call light in reach.
[2019-05-25 20:38] VITALS: PULSE 78
[2019-05-25] MEDS: METOPROLOL TARTRATE TAB 25 MG, METOPROLOL TARTRATE TAB 12.5 MG 37.5 MG PO (20:38)
[2019-05-25] MEDS: ONDANSETRON HCL ODT 4 MG TABLET PO (20:38)
[2019-05-25] MEDS: TRAZODONE HCL 50 MG TABLET 150 MG PO (20:39)
--- NOTE | 2019-05-25 20:40 | PC.NURSE ---
Patient complaining of upset stomach. Requested/given PRN Zofran. Denies further diarrhea. No distress noted. Call light in reach.
--- NOTE | 2019-05-25 21:30 | PC.NURSE ---
Patient lying in bed watching tv. Denies any more diarrhea and says his stomach feels better now too. Denies pain/complaints/needs @ this time. No distress noted. Call light in reach.
--- NOTE | 2019-05-25 22:15 | PC.NURSE ---
Patient appears to be sleeping by the rise and fall of his chest. Respirations even and unlabored. No distress noted. Call light in reach.
--- NOTE | 2019-05-25 23:30 | PC.NURSE ---
Patient appears to be sleeping by the rise and fall of his chest. Respirations even and unlabored. No distress noted. Call light in reach.
[2019-05-26] VITALS: BP 135/84; PULSE 92; RESP 18; TEMP 36.3; O2SAT 96
--- NOTE | 2019-05-26 01:10 | PC.NURSE ---
Patient appears to be sleeping by the rise and fall of his chest. Respirations even and unlabored. No distress noted. Call light in reach.
--- NOTE | 2019-05-26 02:05 | PC.NURSE ---
Patient appears to be sleeping by the rise and fall of his chest. Respirations even and unlabored. No distress noted. Call light in reach.
--- NOTE | 2019-05-26 03:00 | PC.NURSE ---
Patient appears to be sleeping by the rise and fall of his chest. Respirations even and unlabored. No distress noted. Call light in reach.
--- NOTE | 2019-05-26 03:30 | PC.NURSE ---
Patient had medium size loose but not watery bm. Patient denies pain/complaints/needs @ this time. No distress noted. Call light in reach.
[2019-05-26] MEDS: LOPERAMIDE HCL 2 MG CAPSULE PO ×6 (03:59→22:37)
--- NOTE | 2019-05-26 04:09 | PC.NURSE ---
Patient had a second loose stool, small in size. Patient given PRN Imodium. Denies pain/other complaints/needs @ this time. Denies nausea also. No distress noted. Call light and personal belongings within reach.
--- NOTE | 2019-05-26 05:37 | PC.NURSE ---
Patient appears to be sleeping by the rise and fall of his chest. Respirations even and unlabored. No distress noted. Call light in reach.
[2019-05-26] MEDS: LEVOTHYROXINE SODIUM 25 MCG TABLET PO (05:50)
--- NOTE | 2019-05-26 05:53 | PC.NURSE ---
Patient had a lg watery diarrhea bm. PRN Imodium given. No distress noted. Call light in reach.
--- NOTE | 2019-05-26 06:15 | PC.NURSE ---
Patient had a small watery diarrhea bm. PRN Imodium given. No distress noted. Call light in reach.
[2019-05-26 07:33] LABS: INR 1.6; Prothrombin Time 16.2 Seconds (9.64-11.0)
[2019-05-26 07:49] VITALS: BP 138/81; PULSE 98; RESP 18; TEMP 36.7; O2SAT 98
[2019-05-26] MEDS: CHOLESTYRAMINE (W/ SUGAR) 4 GM POWD.PACK PO ×2 (08:27→16:38)
[2019-05-26] MEDS: SACCHAROMYCES BOULARDII 250 MG CAPSULE PO ×2 (08:28→16:39)
[2019-05-26] MEDS: FLUTICASONE PROPIONATE 0.05% NA SPR 16 GM BTL (*BKC) 2 SPRAY NASAL ×2 (08:28→21:28)
[2019-05-26 08:30] VITALS: PULSE 94
[2019-05-26] MEDS: METOPROLOL TARTRATE TAB 25 MG, METOPROLOL TARTRATE TAB 12.5 MG 37.5 MG PO (08:30)
[2019-05-26] MEDS: MAGNESIUM OXIDE 400 MG TABLET PO ×3 (08:31→16:39)
--- NOTE | 2019-05-26 08:31 | PC.NURSE ---
loperamide given for loose stool
[2019-05-26] MEDS: ASCORBIC ACID 500 MG TABLET PO (08:32)
[2019-05-26] MEDS: FUROSEMIDE 40 MG TABLET PO (08:32)
[2019-05-26] MEDS: THIAMINE HCL 100 MG TABLET PO (08:32)
[2019-05-26] MEDS: FERROUS SULFATE 324 MG TABLET PO (08:32)
[2019-05-26] MEDS: GABAPENTIN 400 MG CAPSULE PO ×3 (08:33→16:39)
[2019-05-26] MEDS: ASPIRIN 81 MG CHEWABLE TABLET PO (08:33)
[2019-05-26] MEDS: FAMOTIDINE 20 MG TABLET PO (08:33)
[2019-05-26] MEDS: TAMSULOSIN HCL 0.4 MG CAPSULE PO ×2 (08:33→16:39)
[2019-05-26] MEDS: POTASSIUM CHLORIDE 20 MEQ TABLET PO (08:33)
[2019-05-26] MEDS: FOLIC ACID 1 MG TABLET PO (08:33)
--- NOTE | 2019-05-26 09:30 | PC.NURSE ---
No further stool at this time
[2019-05-26] MEDS: ONDANSETRON HCL ODT 4 MG TABLET PO (10:18)
--- NOTE | 2019-05-26 10:19 | PC.NURSE ---
zofran given for nausea
--- NOTE | 2019-05-26 11:30 | PC.NURSE ---
In bed, no further stools, no vomiting
--- NOTE | 2019-05-26 13:00 | PC.NURSE ---
still having nauseated feeling, given tums, no vomiting, taking po fluids well
[2019-05-26] MEDS: CALCIUM CARBONATE (TUMS) 500 MG (200 MG ELEMENTAL) PO (13:07)
--- NOTE | 2019-05-26 14:07 | PC.NURSE ---
Resting in bed, no stools, no vomiting
--- NOTE | 2019-05-26 14:15 | PC.NURSE ---
JWorking with therapy, nausea has decreased
[2019-05-26 15:43] VITALS: BP 131/73; PULSE 98; RESP 16; TEMP 36.7; O2SAT 99
--- NOTE | 2019-05-26 15:48 | PC.NURSE ---
bernard from social worker palliative care is in to speak with pt, pt expresses concern about being home bound if he uses home health, we are to show him how to do his own dressing change tomorrow before discharge so he can possibly do outpt therapy instead per bernard
[2019-05-26] MEDS: WARFARIN (*PBKC) 5 MG TABLET 10 MG PO (16:38)
[2019-05-26] MEDS: WARFARIN (*PBKC) 2 MG TABLET PO (18:40)
--- NOTE | 2019-05-26 19:43 | PC.NURSE ---
pt has no further complaints of n/v or loose stools, resting in bed, urinal in reach, rails up
[2019-05-26] MEDS: TRAZODONE HCL 50 MG TABLET 150 MG PO (21:28)
[2019-05-26 21:29] VITALS: PULSE 95
[2019-05-26] MEDS: METOPROLOL TARTRATE 25 MG TABLET (21:29)
[2019-05-27] VITALS: BP 94/52; PULSE 96; RESP 16; TEMP 36.4; O2SAT 98
--- NOTE | 2019-05-27 02:08 | PC.NURSE ---
Remains asleep on hourly rounds. Resp deep & even. Needed objects in reach.
--- NOTE | 2019-05-27 04:11 | PC.NURSE ---
Voided in urinal @ bedside.
[2019-05-27] MEDS: LEVOTHYROXINE SODIUM 25 MCG TABLET PO (06:13)
[2019-05-27 08:00] VITALS: BP 109/73; PULSE 98; RESP 18; TEMP 36.7; O2SAT 96
[2019-05-27 08:36] LABS: INR 1.6; Prothrombin Time 16.7 Seconds (9.64-11.0)
[2019-05-27] MEDS: CHOLESTYRAMINE (W/ SUGAR) 4 GM POWD.PACK PO (09:08)
[2019-05-27] MEDS: SACCHAROMYCES BOULARDII 250 MG CAPSULE PO (09:09)
[2019-05-27 09:10] VITALS: PULSE 110
[2019-05-27] MEDS: METOPROLOL TARTRATE TAB 25 MG, METOPROLOL TARTRATE TAB 12.5 MG 37.5 MG PO (09:10)
[2019-05-27] MEDS: FLUTICASONE PROPIONATE 0.05% NA SPR 16 GM BTL (*BKC) 2 SPRAY NASAL (09:10)
[2019-05-27] MEDS: FERROUS SULFATE 324 MG TABLET PO (09:11)
[2019-05-27 09:13] LABS: Hematocrit 35.1 % (40.0-54.0); Immature Platelet Fraction Pct 1.3 % (1.0-7.0); Mean Corpuscular HGB Conc 31.3 g/dL (32.0-36.0); Mean Corpuscular Hemoglobin 31.5 pg (27.0-31.0); Mean Corpuscular Volume 100.6 fL (78.0-102.0); Mean Platelet Volume 9.5 fl (8.7-11.0); Platelet Count Result 547 K/mm3 (150-420); Red Blood Count 3.49 M/mm3 (4.70-6.10); White Blood Count 12.5 K/mm3 (4.8-10.8)
[2019-05-27] MEDS: FAMOTIDINE 20 MG TABLET PO (09:13)
[2019-05-27] MEDS: ASPIRIN 81 MG CHEWABLE TABLET PO (09:13)
[2019-05-27] MEDS: GABAPENTIN 400 MG CAPSULE PO ×2 (09:13→13:15)
[2019-05-27] MEDS: THIAMINE HCL 100 MG TABLET PO (09:13)
[2019-05-27] MEDS: ASCORBIC ACID 500 MG TABLET PO (09:13)
[2019-05-27] MEDS: TAMSULOSIN HCL 0.4 MG CAPSULE PO (09:13)
[2019-05-27] MEDS: FUROSEMIDE 40 MG TABLET PO (09:13)
[2019-05-27] MEDS: MAGNESIUM OXIDE 400 MG TABLET PO ×2 (09:13→13:15)
[2019-05-27] MEDS: FOLIC ACID 1 MG TABLET PO (09:13)
[2019-05-27 09:47] LABS: Alanine Aminotransferase 60 U/L (16-63); Albumin Level 2.2 g/dL (3.4-5.0); Alkaline Phosphatase 104 U/L (46-116); Anion Gap 15.3 mmol/L (7-16); Aspartate Amino Transferase 35 U/L (15-37); Bilirubin,Total 0.4 mg/dL (0.00-1.00); Blood Urea Nitrogen 8 mg/dL (7-18); Calcium 8.3 mg/dL (8.5-10.1); Carbon Dioxide 23 mmol/L (21-32); Chloride 103 mmol/L (98-108); Estimated CRCL calculation 111 ml/min; Estimated Glomerular Filt Rate > 60; Glucose 71 mg/dL (70-99); Osmolality Calculated 280 mOsm/kg (285-295); Potassium 4.3 mmol/L (3.5-5.1); Sodium 137 mmol/L (136-145); Total Protein 5.4 g/dL (6.4-8.2)
--- NOTE | 2019-05-27 12:19 | P.DS_ITS ---
DS: Diagnosis Admitting Diagnosis Admitting Diagnosis: Weakness <JIMENA Holguin - Last Filed: 05/27/19 12:31> Discharge Diagnosis (1) Weakness generalized: Onset Date: ~05/15/19 <JIMENA Holguin - Last Filed: 05/27/19 12:31> Code(s): R53.1 - Weakness <JIMENA Holguin - Last Filed: 05/27/19 12:31> Status: Acute <JIMENA Holguin - Last Filed: 05/27/19 12:31> Assessment and Plan: * patient will discharge home with outpatient PT/ OT and home health. * patient will use DME if required <JIMENA Holguin - Last Filed: 05/27/19 12:31> (2) Numbness and tingling of both lower extremities: Onset Date: Unknown <JIMENA Holguin - Last Filed: 05/27/19 12:31> Code(s): R20.0 - Anesthesia of skin; R20.2 - Paresthesia of skin <JIMENA Holguin - Last Filed: 05/27/19 12:31> Status: Acute <JIMENA Holguin - Last Filed: 05/27/19 12:31> Assessment and Plan: * IMPROVING * possibly secondary to PVD * per previous provider the CT scan of his left lower extremity, the arterial duplex studies of his lower extremities, in the venous Dopplers of his lower extremities- all these studies were done at [facility] in [place], one of the studies at [place]' stated that they couldn't visualize well and Ordered a repeat Venous Doppler to be done here. notes unavailable to me * US venous doppler UE DATE: 05/18/2019 12:45 INDICATION: Left upper limb swelling. FINDINGS: The visualized portions of the right internal jugular vein, subclavian vein, axillary vein, brachial veins, basilic vein, radial vein, and ulnar vein are patent. There is thrombus in right cephalic vein. The visualized portions of the left subclavian vein, brachial veins, basilic vein, radial vein, and ulnar vein are patent. There is thrombus in left cephalic vein, internal jugular vein, and axillary vein. IMPRESSION: 1. Deep vein thrombosis involving left internal jugular vein and axillary vein. 2. Superficial vein thrombosis involving * will continue gabapentin <KINGA Holguin-C - Last Filed: 05/27/19 12:31> (3) PVD (peripheral vascular disease): Onset Date: Unknown <KINGA Holguin-C - Last Filed: 05/27/19 12:31> Code(s): I73.9 - Peripheral vascular disease, unspecified <KINGA Holguin-C - Last Filed: 05/27/19 12:31> Status: Acute <KINGA Holguin-C - Last Filed: 05/27/19 12:31> Assessment and Plan: * lipid panel within normal limits, HLD slightly elevated * continue PT/ OT * After discharge will follow-up with PCP <KINGA Holguin-C - Last Filed: 05/27/19 12:31> (4) CAD (coronary atherosclerotic disease): Onset Date: Unknown <KINGA Holguin-C - Last Filed: 05/27/19 12:31> Code(s): I25.10 - Atherosclerotic heart disease of ute coronary artery without angina pectoris <KINGA Holguin-C - Last Filed: 05/27/19 12:31> Status: Acute <KINGA Holguin-C - Last Filed: 05/27/19 12:31> Assessment and Plan: * stable * Lipid panel WNL <KINGA Holguin-C - Last Filed: 05/27/19 12:31> (5) Hypokalemia: Onset Date: Unknown <KINGA Holguin-C - Last Filed: 05/27/19 12:31> Code(s): E87.6 - Hypokalemia <KINGA Holguin-C - Last Filed: 05/27/19 12:31> Status: Acute <KINGA Holguin-C - Last Filed: 05/27/19 12:31> Assessment and Plan: *
--- NOTE | 2019-05-27 12:19 | PM.DS ---
DS: Diagnosis Admitting Diagnosis Admitting Diagnosis: Weakness <JIMENA Holguin - Last Filed: 05/27/19 12:31> Discharge Diagnosis (1) Weakness generalized: Onset Date: ~05/15/19 <JIMENA Holguin - Last Filed: 05/27/19 12:31> Code(s): R53.1 - Weakness <JIMENA Holguin - Last Filed: 05/27/19 12:31> Status: Acute <JIMENA Holguin - Last Filed: 05/27/19 12:31> Assessment and Plan: patient will discharge home with outpatient PT/ OT and home health. patient will use DME if required <JIMENA Holguin - Last Filed: 05/27/19 12:31> (2) Numbness and tingling of both lower extremities: Onset Date: Unknown <JIMENA Holguin - Last Filed: 05/27/19 12:31> Code(s): R20.0 - Anesthesia of skin; R20.2 - Paresthesia of skin <JIMENA Holguin - Last Filed: 05/27/19 12:31> Status: Acute <JIMENA Holguin - Last Filed: 05/27/19 12:31> Assessment and Plan: IMPROVING possibly secondary to PVD per previous provider the CT scan of his left lower extremity, the arterial duplex studies of his lower extremities, in the venous Dopplers of his lower extremities- all these studies were done at [facility] in [place], one of the studies at [place]' stated that they couldn't visualize well and Ordered a repeat Venous Doppler to be done here. notes unavailable to me US venous doppler UE DATE: 05/18/2019 12:45 INDICATION: Left upper limb swelling. FINDINGS: The visualized portions of the right internal jugular vein, subclavian vein, axillary vein, brachial veins, basilic vein, radial vein, and ulnar vein are patent. There is thrombus in right cephalic vein. The visualized portions of the left subclavian vein, brachial veins, basilic vein, radial vein, and ulnar vein are patent. There is thrombus in left cephalic vein, internal jugular vein, and axillary vein. IMPRESSION: 1. Deep vein thrombosis involving left internal jugular vein and axillary vein. 2. Superficial vein thrombosis involving will continue gabapentin <KINGA Holguin-C - Last Filed: 05/27/19 12:31> (3) PVD (peripheral vascular disease): Onset Date: Unknown <KINGA Holguin-C - Last Filed: 05/27/19 12:31> Code(s): I73.9 - Peripheral vascular disease, unspecified <KELLY HolguinC - Last Filed: 05/27/19 12:31> Status: Acute <KINGA Holguin-C - Last Filed: 05/27/19 12:31> Assessment and Plan: lipid panel within normal limits, HLD slightly elevated continue PT/ OT After discharge will follow-up with PCP <KELLY HolguinC - Last Filed: 05/27/19 12:31> (4) CAD (coronary atherosclerotic disease): Onset Date: Unknown <Kenton Burris KELLYC - Last Filed: 05/27/19 12:31> Code(s): I25.10 - Atherosclerotic heart disease of [place] coronary artery without angina pectoris <KELLY HolguinC - Last Filed: 05/27/19 12:31> Status: Acute <KELLY HolguinC - Last Filed: 05/27/19 12:31> Assessment and Plan: stable Lipid panel WNL <Kenton Burris KINGA-C - Last Filed: 05/27/19 12:31> (5) Hypokalemia: Onset Date: Unknown <Kenton Burris KINGA-C - Last Filed: 05/27/19 12:31> Code(s): E87.6 - Hypokalemia <Kenton Burris KINGA-C - Last Filed: 05/27/19 12:31> Status: Acute <KINGA Holguin-C - Last Filed: 05/27/19 12:31> Assessment and Plan: resolved continue his daily potassium chloride <Kenton Burris KINGA-C - Last Filed: 03/18/20 12:31> (6) Hyponatremia: Onset Date: Unknown <JIMENA Holguin - Last Filed: 05/27/19 12:31> Code(s): E87.1 - Hypo-osmolality and hyponatremia <JIMENA Holguin - Last Filed: 05/27/19 12:31> Status: Acute
--- NOTE | 2019-05-27 14:25 | PCOTNOTE ---
Patient is discharged from skilled OT services and is transitioning back home. See last treatment note and POC for goal obtainment and skills. MS
--- NOTE | 2019-06-03 13:39 | PC.NURSE ---
06/03/2019 1315: CALLED PATIENT FOR FOLLOW UP CALL ADTER DISCHARGE ON 05/27/2019. PT STATES HE IS GETTING HOME HEALTH 1X WEEK AND THAN HIS WOUND IS HEALING SLOWLY VERBALIZED UNDERSTANDING OF DISCHARGE INSTRUCTIONS. STATES SUPPOSE TO HAVE A FOLLOW UP APPT WITH DR CONTE TOMORROW AND IS GOING TO CONFIRM HIS APPT THIS AFTERNOON. PT HAD QUESTION ABOUT WHO IS GOING TO REFILL THE GABAPENTIN THAT WAS ORDERED BY HUMAN RESOURCES BENEFITS COORDINATOR HERE AT HOSPITAL. INFORMED PT TO ASK HIS PRIMARY MD TO REFILL THAT SCRIPT. PT VERBALIZES UNDERSTANDING. HAD GOOD COMMENTS ABOUT HIS STAY HERE AT [facility]. THE NURSES WERE GREAT .
== END 2019-05-27 14:45 | disposition home health service (06) | DRG 948 ==
PROVIDERS: Family Medicine; Nurse Practitioner; Admitting Provider Emergency Medicine; PCP Internal Medicine; Visit Provider Emergency Medicine
DX: R53.1 Weakness (principal); I82.512 Chronic embolism and thrombosis of left femoral vein; E87.1 Hypo-osmolality and hyponatremia; I82.A22 Chronic embolism and thrombosis of left axillary vein; I82.C22 Chronic embolism and thrombosis of left internal jugular vein; I82.7 Chronic embolism and thrombosis of veins of upper extremity; K52.9 Noninfective gastroenteritis and colitis, unspecified; L89.322 Pressure ulcer of left buttock, stage 2; L89.312 Pressure ulcer of right buttock, stage 2; E83.42 Hypomagnesemia; I25.10 Atherosclerotic heart disease of native coronary artery without angina pectoris; F41.9 Anxiety disorder, unspecified; I10 Essential (primary) hypertension; I73.9 Peripheral vascular disease, unspecified; D52.0 Dietary folate deficiency anemia; G62.9 Polyneuropathy, unspecified; R20.0 Anesthesia of skin; Z79.01 Long term (current) use of anticoagulants
CPT/HCPCS: 36415; 80048; 80053; 80061; 82140; 82306; 82728; 83540; 83550; 83735; 83880; 84100; 84439; 84443; 84484; 85025; 85027; 85055; 85610; 87045; 87046; 87269; 87272; 87324; 87427; 89055; 93005; 93970; 97110; 97116; 97161; 97165; 97530; 97535; A9270

== ENCOUNTER 2019-06-30 18:53 | Inpatient (IN) | payer MEDICARE, SELFPAY ==
[2019-06-30 19:00] VITALS: BP 121/78; PULSE 112; RESP 16; TEMP 36.7; O2SAT 100
--- NOTE | 2019-06-30 19:00 | ED.AMS ---
HPI - Altered Mental Status General Chief Complaint: Altered Mental Status Stated Complaint: amb Time Seen by Provider: 06/30/19 19:00 Source: patient and EMS Mode of arrival: EMS Limitations: intoxication History of Present Illness HPI narrative: Patient was seen by home health nurse. He has been having some increasing INR levels. Subsequently today with his level being greater than 9 he was advised to be seen in the emergency room for vitamin K therapy. He is also having some mental status changes due to his chronic alcohol use. He has been drinking large amounts of vodka at home. When asked why he did get up to go to the bathroom he said he was too drunk to go to the bathroom and therefore just urinated and defecated in the bed. MD complaint: altered mental status, confusion and intoxication Onset (ago): day(s) (2) Timing confirmed by: caregiver Severity: moderate Consistency of symptoms: waxing and waning Context: alcohol abuse Related Data Home Medications Medication Instructions Recorded Confirmed loperamide 4 mg PO QID PRN 05/14/19 06/30/19 atorvastatin 10 mg PO DAILY 06/30/19 06/30/19 calcitriol 0.5 mcg PO DAILY 06/30/19 06/30/19 furosemide 80 mg PO DAILY 06/30/19 06/30/19 losartan 100 mg PO DAILY 06/30/19 06/30/19 metoprolol tartrate 50 mg PO BID 06/30/19 06/30/19 tamsulosin 0.8 mg PO DAILY 06/30/19 06/30/19 Allergies Allergy/AdvReac Type Severity Reaction Status Date / Time No Known Allergies Allergy Unverified 09/06/16 20:58 [facility] Past Medical History Medical History Alcohol abuse CAD (coronary atherosclerotic disease) (Unknown) Chronic deep vein thrombosis (DVT) of femoral vein of left lower extremity (Unknown) Chronic thrombosis of right axillary vein (Unknown) Clostridium difficile infection (~04/2019) MELISA (generalized anxiety disorder) (Unknown) History of DVT (deep vein thrombosis) Hypertension Hypokalemia (Unknown) Hyponatremia (Unknown) Megaloblastic anemia due to folate deficiency (Unknown) Myocardial infarct Numbness and tingling of both lower extremities (Unknown) PAD (peripheral artery disease) PVD (peripheral vascular disease) (Unknown) Substance abuse Weakness generalized (~05/15/19) Surgical History Surgical History H/O hernia repair Family History Family History Father Cancer Mother Dementia Social History Social History Smoking packs per day: 1 Smoking cigarettes per day: 20.0 Years smoked: 40 Smoking pack-years: 40.00 Smoking status: Light tobacco smoker Tobacco type: cigarettes Second hand tobacco smoke exposure: No Alcohol intake: former Drinks per week: 10 Substance use: never Substance use type: does not use Gender identity (if verbalized by the patient): Male Spiritual care concerns: No Agree to blood products: Yes Exam Const: General: no acute distress, alert and intoxicated appearing Orientation/consciousness: patient oriented x3 HENMT: Head: normal to inspection Ears: external ears normal General nose exam: Normal external nose present Face and sinus: normal facial exam Mouth: Yes moist mucous membranes Eyes: Conjunctivae: conjunctivae normal Pupils: Equal, round and reactive pupils present EOM: EOMs intact bilaterally Neck: Neck: normal visual inspection and no lymphadenopathy Resp: Effort & Inspection: normal respiratory effort Auscultation: clear to auscultation bilaterally Cardio: Rate: regular rate and tachycardic Heart sounds: no murmurs GI: GI Palp: Yes Soft to palpation, Yes Tenderness to palpation present (GI) ( generalized), No Guarding due to palpation present (GI) and No Rebound tenderness present Auscultation: normal bowel sounds Back/Spine/Pelvis: Cervical Spine: cervical ROM normal Thoracic/
[2019-06-30] MEDS: THIAMINE HCL 200 MG/2 ML VIAL 100 MG IV PUSH (19:34)
[2019-06-30] MEDS: SODIUM CHLORIDE 0.9% IV 1,000 ML 999 ML IV CONT (19:34)
[2019-06-30 19:41] LABS: Basophils Absolute Auto 0.04 K/mm3 (0.00-0.10); Basophils Percent Auto 0.4 % (0.0-1.0); Eosinophils Absolute Auto 0.03 K/mm3 (0.02-0.50); Eosinophils Percent Auto 0.3 % (1.0-6.0); Hematocrit 32.6 % (40.0-54.0); Hemoglobin 10.9 g/dL (14.0-18.0); Immature Granulocyte Absolute 0.05 K/mm3 (0.00-0.00); Immature Granulocyte Percent A 0.5 % (0.0-0.0); Lymphocytes Absolute Auto 2.93 K/mm3 (1.10-4.50); Lymphocytes Percent Auto 29.7 % (18.0-42.0); Mean Corpuscular HGB Conc 33.4 g/dL (32.0-36.0); Mean Corpuscular Hemoglobin 30.9 pg (27.0-31.0); Mean Corpuscular Volume 92.4 fL (78.0-102.0); Mean Platelet Volume 8.3 fl (8.7-11.0); Monocytes Absolute Auto 0.68 K/mm3 (0.10-0.90); Monocytes Percent Auto 6.9 % (2.0-11.0); Neutrophils Absolute Auto 6.1 K/mm3 (1.7-7.2); Neutrophils Percent Auto 62.2 % (50.0-70.0); Platelet Count Result 506 K/mm3 (150-420); Red Blood Count 3.53 M/mm3 (4.70-6.10); Red Cell Distribution Width 15.1 % (11.6-14.4); White Blood Count 9.9 K/mm3 (4.8-10.8)
[2019-06-30 20:00] VITALS: BP 117/75; PULSE 101; O2SAT 99
[2019-06-30 20:00] LABS: Prothrombin Time 90.4 Seconds (9.64-11.0)
[2019-06-30 20:01] LABS: Alanine Aminotransferase 25 U/L (16-63); Albumin Level 2.3 g/dL (3.4-5.0); Alkaline Phosphatase 66 U/L (46-116); Ammonia 26 umol/L (11-32); Anion Gap 20.2 mmol/L (7-16); Aspartate Amino Transferase 67 U/L (15-37); Bilirubin,Total 0.6 mg/dL (0.00-1.00); Blood Urea Nitrogen 7 mg/dL (7-18); Calcium 7.2 mg/dL (8.5-10.1); Carbon Dioxide 20 mmol/L (21-32); Chloride 105 mmol/L (98-108); Estimated CRCL calculation 118 ml/min; Estimated Glomerular Filt Rate > 60; Glucose 79 mg/dL (70-99); Osmolality Calculated 291 mOsm/kg (285-295); Potassium 3.2 mmol/L (3.5-5.1); Sodium 142 mmol/L (136-145); Thyroid Stimulating Hormone 5.15 uIU/mL (0.36-3.74); Total Protein 5.6 g/dL (6.4-8.2)
[2019-06-30 20:03] LABS: Ethanol 362 mg/dL (0-6); INR 9.5
[2019-06-30] MEDS: PHYTONADIONE 5 MG TABLET PO (20:18)
[2019-06-30 20:29] LABS: Add Urine Microscopic? YES; Appearance Urine Clear (Clear); Bilirubin Urine Negative (Negative); Blood Urine Negative (Negative); Color Urine Yellow (Yellow); Glucose Urine UA Negative (Negative); Ketones Urine 3+ (Negative); Leukocyte Esterase Ur Negative LEU/UL (Negative); Nitrate Urine Negative (Negative); Protein Urine Negative (Negative); pH Urine 6.5 (5.0-8.0)
[2019-06-30 20:34] LABS: Bacteria Urine Trace /hpf; RBC Urine 0-2 /hpf (0-2); Squamous Epithelial Cell Urine Rare /hpf (Few); WBC Urine 0-3 /hpf (0-3)
[2019-06-30 20:36] LABS: Amphetamine Screen Urine Negative (Negative); Barbiturate Screen Urine Negative (Negative); Benzodiazepines Screen Urine Negative (Negative); Cannabinoid Screen Urine Negative (Negative); Cocaine Screen Urine Negative (Negative); Methadone Screen Urine Negative (Negative); Opiate Screen Urine Negative (Negative); Phencyclidine Screen Urine Negative (Negative)
[2019-06-30 21:00] VITALS: BP 138/79; PULSE 118; RESP 16; O2SAT 97
[2019-06-30 21:45] VITALS: BP 113/79; PULSE 118; RESP 18; TEMP 36.4; O2SAT 99
--- NOTE | 2019-06-30 21:45 | ADMGEN ---
This patient, Calixto Lyons, was admitted to 2nd Floor Room 207-2. Patient oriented to hospital policies and general routines including ID bracelet, bed and alarms, visiting hours, pain management, procedures, bathroom and other care routines, personal items, smoking policy, room service/diet, and visiting hours. Valuables list includes clothing, keys, cell phone and claim representative, gold colored necklace, home meds (put in med room with patient rock contractor bag). Information on how to activate the Rapid Response Team has been discussed. Patient are encouraged to report perceived risks to care and to ask questions if they do not understand what they are told or what they should do.
[2019-06-30] MEDS: FLUTICASONE PROPIONATE 0.05% NA SPR 16 GM BTL (*BKC) 2 SPRAY NASAL (22:08)
[2019-06-30] MEDS: DEXTROSE 5%/0.45% SOD CHL 1,000 ML 150 ML IV CONT (22:09)
[2019-06-30] MEDS: POTASSIUM CHLORIDE 20 MEQ TABLET PO (22:09)
--- NOTE | 2019-06-30 22:30 | PC.NURSE ---
Patient still awake. Respirations even and unlabored. IVF infusing to site in LFA without difficulty. Patient has no sign/sx of bleeding noted. No distress noted. Call light in reach.
--- NOTE | 2019-06-30 23:20 | PC.NURSE ---
Patient still awake. Respirations even and unlabored. IVF infusing without difficulty to site in LFA. No signs/sx of bleeding noted. No distress noted. Patient denies pain/complaints/needs @ this time. Call light in reach.
--- NOTE | 2019-06-30 23:29 | ADMGEN ---
This patient, Calixto Lyons, was admitted to 2nd Floor Room 207-2. Patient oriented to hospital policies and general routines including ID bracelet, bed and alarms, visiting hours, pain management, procedures, bathroom and other care routines, personal items, smoking policy, room service/diet, and visiting hours. Valuables list includes clothing, keys, cell phone and business improvement manager. Information on how to activate the Rapid Response Team has been discussed. Patient are encouraged to report perceived risks to care and to ask questions if they do not understand what they are told or what they should do.
[2019-06-30 23:37] VITALS: BMI 27.4
[2019-07-01] VITALS: BP 109/66; PULSE 104; RESP 18; TEMP 36.9; O2SAT 96
--- NOTE | 2019-07-01 00:15 | PC.NURSE ---
Patient appears to be sleeping by the rise and fall of his chest. Respirations even and unlabored. IVF infusing to site in LFA without difficulty. No signs/sx of bleeding noted. No distress noted. Call light in reach.
--- NOTE | 2019-07-01 01:10 | PC.NURSE ---
Patient awake when nurse checked on him. Respirations even and unlabored. IVF infusing to site in LFA without difficulty. Denies pain/complaints/needs @ this time. No signs/sx of bleeding noted. No distress noted. Call light in reach.
--- NOTE | 2019-07-01 03:15 | PC.NURSE ---
Patient appears to be sleeping by the rise and fall of his chest. Respirations even and unlabored. No distress noted. Call light in reach.
--- NOTE | 2019-07-01 04:00 | PC.NURSE ---
Patient appears to be sleeping by the rise and fall of his chest. Respirations even and unlabored. No distress noted. Call light in reach.
[2019-07-01] MEDS: DEXTROSE 5%/0.45% SOD CHL 1,000 ML 150 ML IV CONT ×3 (04:42→17:41)
--- NOTE | 2019-07-01 05:10 | PC.NURSE ---
Patient awake when nurse checked on him. Respirations even and unlabored. Denies pain/complaints/needs @ this time. IVF infusing to site in LFA without difficulty. No distress noted. Call light in reach.
--- NOTE | 2019-07-01 06:20 | PC.NURSE ---
mobile battery technician in patient's room collecting labs. Patient tolerating well. Denies pain/complaints/needs @ this time. No distress noted. Call light in reach.
[2019-07-01 06:54] LABS: Anion Gap 17.3 mmol/L (7-16); Blood Urea Nitrogen 4 mg/dL (7-18); Calcium 7.2 mg/dL (8.5-10.1); Carbon Dioxide 20 mmol/L (21-32); Chloride 106 mmol/L (98-108); Estimated CRCL calculation 137 ml/min; Estimated Glomerular Filt Rate > 60; Glucose 104 mg/dL (70-99); Osmolality Calculated 286 mOsm/kg (285-295); Potassium 3.3 mmol/L (3.5-5.1); Sodium 140 mmol/L (136-145)
[2019-07-01 07:02] LABS: Prothrombin Time 62.9 Seconds (9.64-11.0)
[2019-07-01 07:05] LABS: INR 6.5
[2019-07-01 07:34] VITALS: BP 124/60; PULSE 88; RESP 18; TEMP 36.6; O2SAT 95
[2019-07-01 09:36] LABS: Ethanol 107 mg/dL (0-6)
[2019-07-01] MEDS: CHLORDIAZEPOXIDE 25 MG CAPSULE PO ×3 (09:42→21:52)
--- NOTE | 2019-07-01 10:08 | PC.NURSE ---
REVIEWED MORNING SCHEDULED MEDICATIONS WITH PATIENT. PATIENT REPORTS DR. CONTE HAS CHANGED A LOT OF THEM. HE IS REFUSING TO TAKE THEM. NURSE CALLED TO DR. CONTE'S OFFICE LEFT VOICE MAIL WITH HIS NURSE TO FAX OVER CURRENT MEDICATION SHEET. DEVELOPER ADVOCATE HOSPITALIST INFORMED.
[2019-07-01] MEDS: PHYTONADIONE 5 MG TABLET PO (10:56)
[2019-07-01] MEDS: LORAZEPAM INJ 2 MG/ML VIAL IV PUSH ×2 (11:01→13:11)
[2019-07-01 11:03] LABS: Acetaminophen 2 ug/mL (10-30)
--- NOTE | 2019-07-01 11:07 | PC.NURSE ---
INR DOWN TO 6.5 FROM 9.5 ANOTHER VIT K DOSE PO ORDERED AND ADMINISTERED SEE MAR CONTINUES HAVE SHAKINESS COMING OFF FROM ALCOHOL. LABS 107 DOWN FROM 930. PATIENT REPORTS LIBRIUM GIVEN EARLY HAS NOT HELP. TREMORS NOTED. ATIVAN 2 MG IVP GIVEN ORDERED. CONTINUES TO NOT WANT AM MEDS. CURRENT MED LIST FROM DR. CONTE GIVEN TO [facility] FOR [facility].
--- NOTE | 2019-07-01 12:20 | PC.NURSE ---
RESTING EASIER WITH LESS RESTLESSNESS AND ANXIOUSNESS SINCE ATIVAN GIVEN. REFUSE LUNCH. REPORTS JUST WANTS TO SLEEP AT THIS TIME. IV FLUIDS CONTINUE ORDERED.
--- NOTE | 2019-07-01 13:23 | PC.NURSE ---
1311 PATIENT REQUESTING ATIVAN R/T NERVOUSNESS AND TREMORS. ATIVAN 2 MG IVP ADMINISTERED. NO OTHER NEEDS OR WANTS. FAMILY DROPPED OFF WALLET, GLASSES, CELL PHONE- ALL THREE AT PATIENT'S BEDSIDE.
--- NOTE | 2019-07-01 13:41 | PC.NURSE ---
1315 PATIENT CHANGE FROM OBSERVATION TO INPATIENT STATUS.
--- NOTE | 2019-07-01 17:15 | PM.IMHP ---
H&P: HPI History of Present Illness Chief complaint: amb Narrative: Calixto Lyons is a 58 year old male that was brought in yesterday for altered mental status secondary to alcohol abuse and elevated INR. 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 home health nurse visiting patient to check his INR. His INR at that time was 9. Patient was also found in his stool and urine due to excessive use of alcohol. Patient vital signs are 124/60, 88, 18, 36.6, 95% air. While patient was in the ER he did give vitamin K today his is currently 6.5 he did receive another dose of vitamin K 5 mg his charge screen was negative his DOT H level was 362 is currently 102 his liver enzymes were elevated, ammonia level within normal limits troponin negative he did receive a hepatic panel back in 217 all been negative. Patient did complain of shakes today patient was placed on a CIWA protocol given Librium if needed. His potassium level was slightly decreased he was given a supplement for that. Will continue to care for this patient and check his alcohol level and INR daily Patient able to tolerate all meals , slept well and ambulate at baseline. Patient denies SOB, CP, palpitation, extremity numbness, lightheadness, dizziness, constipation, diarrhea, chills or fever. Review of Systems Constitutional: Constitutional: Reports lethargy, Denies stops breathing during sleep and Reports weakness Cardiovascular: Cardiovascular: Denies chest pain at rest, Denies chest pain with activity, Denies palpitations, Denies dyspnea and Denies slow heart rate Respiratory: Respiratory: Denies chest congestion, Denies cough, Denies dyspnea, Denies dyspnea on exertion and Denies wheezing Gastrointestinal: Gastrointestinal: Denies constipation, Denies dyspepsia, Denies heartburn, Denies diarrhea, Denies nausea, Denies odynophagia, Denies vomiting and Denies hematemesis Genitourinary: Genitourinary: Denies hematuria, Denies dysuria and Denies flank pain Musculoskeletal: Musculoskeletal: Reports muscle weakness Integumentary/Breasts: Skin/Breast: Denies system reviewed and no additional complaints, except as docu Neurologic: Denies confusion, Denies vertigo, Denies dizziness, Denies syncope, Denies focal weakness, Denies seizure-like activity and Reports tremor(s) ( due to alcohol withdrawal) Endocrine: Endocrine: Reports no additional endocrine complaints Hematologic/Lymphatic: Hematologic/Lymphatic: Reports no additional hematologic/lymphatic complaints [facility] Past Medical History Medical History Alcohol abuse CAD (coronary atherosclerotic disease) (Unknown) Chronic deep vein thrombosis (DVT) of femoral vein of left lower extremity (Unknown) Chronic thrombosis of right axillary vein (Unknown) Clostridium difficile infection (~04/2019) MELISA (generalized anxiety disorder) (Unknown) History of DVT (deep vein thrombosis) Hypertension Hypokalemia (Unknown) Hyponatremia (Unknown) Megaloblastic anemia due to folate deficiency (Unknown) Myocardial infarct Numbness and tingling of both lower extremities (Unknown) PAD (peripheral artery disease) PVD (peripheral vascular disease) (Unknown) Substance abuse Weakness generalized (~05/15/19) Surgical History Surgical History H/O hernia repair Family History Family History Father Cancer Mother Dementia Social History Social History Smoking packs per day: 1 Smoking cigarettes per day: 20.0 Years smoked: 40 Smo
[2019-07-01 18:20] VITALS: BP 172/107; PULSE 137; RESP 18; TEMP 37; O2SAT 96
[2019-07-01 18:23] VITALS: PULSE 137
[2019-07-01] MEDS: METOPROLOL TARTRATE 25 MG TABLET 50 MG PO (18:23)
--- NOTE | 2019-07-01 19:32 | PC.NURSE ---
notified of patient's c/o nausea. New order received.
--- NOTE | 2019-07-01 19:36 | PC.NURSE ---
pt refuses to use bedside commode, bedpan used for liquid bm, pt requests iv nausea medicine, dr notified, pt asks about something to help him sleep, notified that dr has ordered trazadone at [facility] if he needs it, pt asks it be given at 2030
--- NOTE | 2019-07-01 19:36 | PM.EVENT ---
Event Note Event Note Event Note: Patient complaining feeling shaky anxious. Having nausea but no vomiting. Denies abdominal and chest pain. Refusing his oral home medications. Alert and oriented. Mild acute distress. Lungs are clear to auscultation bilaterally. Regular rate and rhythm without murmur or gallop. Distended abdomen which is soft and nontender. Possible fluid wave. Extremities are mildly edematous but warm dry and pink. INR is persistently high so he has been re-dosed with vitamin K today and we will start him on oral medications for his withdrawal symptoms. I have examined the patient and reviewed the chart. I discussed the patient's care with Andres Burris APN and agree with her assessment and plan.
[2019-07-01] MEDS: LOPERAMIDE HCL 2 MG CAPSULE 4 MG PO (21:38)
[2019-07-01] MEDS: TRAZODONE HCL 50 MG TABLET 100 MG PO (21:38)
--- NOTE | 2019-07-01 21:47 | PC.NURSE ---
pt asks about getting more shake medicine, laying in bed with tv on, call light in reach
[2019-07-01] MEDS: ONDANSETRON INJ 4 MG/2 ML VIAL IV PUSH (21:52)
[2019-07-02] VITALS: BP 141/90; PULSE 98; RESP 20; TEMP 36.3; O2SAT 95
[2019-07-02] MEDS: DEXTROSE 5%/0.45% SOD CHL 1,000 ML 150 ML IV CONT ×2 (00:59→07:45)
[2019-07-02] MEDS: CHLORDIAZEPOXIDE 25 MG CAPSULE PO ×3 (00:59→12:57)
[2019-07-02] MEDS: LEVOTHYROXINE SODIUM 25 MCG TABLET PO (05:34)
[2019-07-02 05:54] LABS: INR 1.4; Prothrombin Time 14.7 Seconds (9.64-11.0)
[2019-07-02 05:58] LABS: Alanine Aminotransferase 20 U/L (16-63); Albumin Level 2.2 g/dL (3.4-5.0); Alkaline Phosphatase 75 U/L (46-116); Anion Gap 13.8 mmol/L (7-16); Aspartate Amino Transferase 41 U/L (15-37); Bilirubin,Total 1.7 mg/dL (0.00-1.00); Blood Urea Nitrogen 2 mg/dL (7-18); Calcium 6.9 mg/dL (8.5-10.1); Carbon Dioxide 24 mmol/L (21-32); Chloride 105 mmol/L (98-108); Estimated CRCL calculation 115 ml/min; Estimated Glomerular Filt Rate > 60; Glucose 125 mg/dL (70-99); Magnesium 1.2 mg/dL (1.8-2.4); Osmolality Calculated 287 mOsm/kg (285-295); Potassium 2.8 mmol/L (3.5-5.1); Sodium 140 mmol/L (136-145); Total Protein 5.4 g/dL (6.4-8.2)
[2019-07-02 08:00] VITALS: BP 144/100; PULSE 104; PULSE 108; RESP 18; TEMP 36.6; O2SAT 97
[2019-07-02] MEDS: FUROSEMIDE 40 MG TABLET 80 MG PO (08:44)
[2019-07-02] MEDS: LOSARTAN POTASSIUM 25 MG TABLET 100 MG PO (08:44)
[2019-07-02 08:45] VITALS: PULSE 102
[2019-07-02] MEDS: TAMSULOSIN HCL 0.4 MG CAPSULE 0.8 MG PO (08:45)
[2019-07-02] MEDS: METOPROLOL TARTRATE 25 MG TABLET 50 MG PO (08:45)
[2019-07-02] MEDS: calcitrioL 0.25 MCG CAPSULE 0.5 MCG PO (08:45)
[2019-07-02] MEDS: GABAPENTIN 400 MG CAPSULE PO (08:45)
[2019-07-02] MEDS: ATORVASTATIN 10 MG TABLET PO (08:46)
[2019-07-02] MEDS: FERROUS SULFATE 324 MG TABLET PO (08:46)
[2019-07-02 09:22] LABS: Hematocrit 34.7 % (40.0-54.0); Hemoglobin 11.3 g/dL (14.0-18.0); Mean Corpuscular HGB Conc 32.6 g/dL (32.0-36.0); Mean Corpuscular Hemoglobin 31.3 pg (27.0-31.0); Mean Corpuscular Volume 96.1 fL (78.0-102.0); Mean Platelet Volume 9.3 fl (8.7-11.0); Platelet Count Result 381 K/mm3 (150-420); Red Blood Count 3.61 M/mm3 (4.70-6.10); Red Cell Distribution Width 15.1 % (11.6-14.4); White Blood Count 7.5 K/mm3 (4.8-10.8)
[2019-07-02 09:30] LABS: Ethanol < 3 mg/dL (0-6)
[2019-07-02] MEDS: MAGNESIUM OXIDE 400 MG TABLET PO (10:32)
[2019-07-02] MEDS: POTASSIUM CHLORIDE 20 MEQ PACKET (FOR LIQUID) 40 MEQ PO (10:32)
[2019-07-02 12:00] VITALS: PULSE 102
--- NOTE | 2019-07-02 13:31 | P.DS_ITS ---
DS: Diagnosis Admitting Diagnosis Admitting Diagnosis: Weakness Discharge Diagnosis (1) Anticoagulation excessive: Status: Acute Assessment and Plan: * chronic DVTs * patient received vitamin K this hospital stay * INR on discharge 1.4 * per Dr. Murray continue warfarin at 4 mg daily * no signs and symptoms of active bleeding * Dr. Murray office will do a repeat INR on Saturday (2) Sinus tachycardia: Code(s): R00.0 - Tachycardia, unspecified Status: Acute Assessment and Plan: * stable and controlled * continue metoprolol * troponin negative in the ED (3) MELISA (generalized anxiety disorder): Onset Date: Unknown Code(s): F41.1 - Generalized anxiety disorder Status: Acute Assessment and Plan: * patient is receiving Librium * patient will discharge with a small amount of Librium (4) Alcohol abuse: Code(s): F10.10 - Alcohol abuse, uncomplicated Status: Acute Assessment and Plan: * patient has refused alcohol abuse treatment (5) History of DVT (deep vein thrombosis): Code(s): Z86.718 - Personal history of other venous thrombosis and embolism Status: Acute Assessment and Plan: * per Dr. Murray continue warfarin 4 mg p.o. daily, INR is 1.4 * will recheck INR on Saturday and he has a visit with his PCP * * (6) Hypertension: Code(s): I10 - Essential (primary) hypertension Status: Acute Assessment and Plan: * blood pressure 124/60 * continue metoprolol and Lasix (7) Myocardial infarct: Code(s): I21.9 - Acute myocardial infarction, unspecified Status: Acute Assessment and Plan: * troponin in the ED negative (8) Weakness generalized: Onset Date: ~05/15/19 Code(s): R53.1 - Weakness Status: Acute Assessment and Plan: * patient will discharge home with PT/OT * patient home health service has refused to continue care (9) Hypokalemia: Onset Date: Unknown Code(s): E87.6 - Hypokalemia Status: Acute Assessment and Plan: * continue daily potassium supplements * repeat potassium level 07/05 (10) Hyponatremia: Onset Date: Unknown Code(s): E87.1 - Hypo-osmolality and hyponatremia Status: Acute Assessment and Plan: * resolved * sodium on discharge 140 DS: Summary Hospital Course Hospital Course: H&P from admission on 07/01/19 Calixto Lyons is a 58 year old male that was brought in yesterday for altered mental status secondary to alcohol abuse and elevated INR. 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 home health nurse visiting patient to check his INR. His INR at that time was 9. Patient was also found in his stool and urine due to excessive use of alcohol. Patient vital signs are 124/60, 88, 18, 36.6, 95% air. While patient was in the ER he did give vitamin K today his is currently 6.5 he did receive another dose of vitamin K 5 mg his charge screen was negative his DOT H level was 362 is currently 102 his liver enzymes were elevated, ammonia level within normal limits troponin negative he did receive a hepatic panel back in 217 all been negative. Patient did complain of shakes today patient was placed on a CIWA bhupinder
--- NOTE | 2019-07-02 13:31 | PM.DS ---
DS: Diagnosis Admitting Diagnosis Admitting Diagnosis: Weakness Discharge Diagnosis (1) Anticoagulation excessive: Status: Acute Assessment and Plan: chronic DVTs patient received vitamin K this hospital stay INR on discharge 1.[address] Murray continue warfarin at 4 mg daily no signs and symptoms of active bleeding Dr. Murray office will do a repeat INR on Saturday (2) Sinus tachycardia: Code(s): R00.0 - Tachycardia, unspecified Status: Acute Assessment and Plan: stable and controlled continue metoprolol troponin negative in the ED (3) MELISA (generalized anxiety disorder): Onset Date: Unknown Code(s): F41.1 - Generalized anxiety disorder Status: Acute Assessment and Plan: patient is receiving Librium patient will discharge with a small amount of Librium (4) Alcohol abuse: Code(s): F10.10 - Alcohol abuse, uncomplicated Status: Acute Assessment and Plan: patient has refused alcohol abuse treatment (5) History of DVT (deep vein thrombosis): Code(s): Z86.718 - Personal history of other venous thrombosis and embolism Status: Acute Assessment and Plan: per Dr. Murray continue warfarin 4 mg p.o. daily, INR is 1.4 will recheck INR on Saturday and he has a visit with his PCP (6) Hypertension: Code(s): I10 - Essential (primary) hypertension Status: Acute Assessment and Plan: blood pressure 124/60 continue metoprolol and Lasix (7) Myocardial infarct: Code(s): I21.9 - Acute myocardial infarction, unspecified Status: Acute Assessment and Plan: troponin in the ED negative (8) Weakness generalized: Onset Date: ~05/15/19 Code(s): R53.1 - Weakness Status: Acute Assessment and Plan: patient will discharge home with PT/OT patient home health service has refused to continue care (9) Hypokalemia: Onset Date: Unknown Code(s): E87.6 - Hypokalemia Status: Acute Assessment and Plan: continue daily potassium supplements repeat potassium level 07/05 (10) Hyponatremia: Onset Date: Unknown Code(s): E87.1 - Hypo-osmolality and hyponatremia Status: Acute Assessment and Plan: resolved sodium on discharge 140 DS: Summary Hospital Course Hospital Course: H&P from admission on 07/01/19 Calixto Lyons is a 58 year old male that was brought in yesterday for altered mental status secondary to alcohol abuse and elevated INR. 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 home health nurse visiting patient to check his INR. His INR at that time was 9. Patient was also found in his stool and urine due to excessive use of alcohol. Patient vital signs are 124/60, 88, 18, 36.6, 95% air. While patient was in the ER he did give vitamin K today his is currently 6.5 he did receive another dose of vitamin K 5 mg his charge screen was negative his DOT H level was 362 is currently 102 his liver enzymes were elevated, ammonia level within normal limits troponin negative he did receive a hepatic panel back in 217 all been negative. Patient did complain of shakes today patient was placed on a CIWA protocol given Librium if needed. His potassium level was slightly decreased he was given a supplement for that. Will continue to care for this patient and check his alcohol level and INR daily Patient able to tolerate all meals , slept well and ambulate at baseline. Patient denies SOB, CP, palpitation, extremity numbness, lightheadness, dizziness, constipation, diarrhea, chills or fever. patient will disch
--- NOTE | 2019-07-07 16:31 | PC.NURSE ---
DISCHARGE FOLLOW UP CALL: No answer, left message at [phone]
--- NOTE | 2019-07-08 15:32 | PC.NURSE ---
#2 DISCHARGE FOLLOW UP CALL: No answer
--- NOTE | 2019-07-27 08:02 | PCOTNOTE ---
Patient is discharged from skilled OT services and returned home. See patient's evaluation for level of function and skills. MS
== END 2019-07-02 14:30 | disposition home or self-care (01) | DRG 948 ==
LOC: CHSED 20:40 → CHS2ND 20:56
PROVIDERS: Nurse Practitioner; Admitting Provider Emergency Medicine; Emergency Provider Emergency Medicine; PCP Internal Medicine; Visit Provider Emergency Medicine
DX: R79.1 Abnormal coagulation profile (principal); F10.239 Alcohol dependence with withdrawal, unspecified; I82.512 Chronic embolism and thrombosis of left femoral vein; I82.701 Chronic embolism and thrombosis of unspecified veins of right upper extremity; F41.1 Generalized anxiety disorder; I25.10 Atherosclerotic heart disease of native coronary artery without angina pectoris; I10 Essential (primary) hypertension; E87.6 Hypokalemia; D53.1 Other megaloblastic anemias, not elsewhere classified; I73.9 Peripheral vascular disease, unspecified; R20.2 Paresthesia of skin; F17.210 Nicotine dependence, cigarettes, uncomplicated; I25.2 Old myocardial infarction; Z79.01 Long term (current) use of anticoagulants
CPT/HCPCS: 36415; 80048; 80053; 80307; 81001; 82140; 83735; 84443; 85025; 85027; 85610; 96361; 96374; 96375; 96376; 97161; 97165; 99285; A9270; G0378; J2060; J2405; J3411; J7030

== ENCOUNTER 2019-07-15 14:36 | Inpatient (IN) | payer MEDICARE, MEDICAID, SELFPAY ==
[2019-07-15] VITALS (10 sets, daily range): BP systolic 82–114; BP diastolic 45–67; PULSE 61–85; RESP 14–22; TEMP 35.7–36.1; O2SAT 95–98; BMI 29.7
--- NOTE | ~2019-07-15 | CT_ITS ---
EXAMINATION: CT brain wo con EXAM DATE: 07/15/2019 16:59 INDICATION: Increasing falls. Hypotension. Generalized weakness. TECHNIQUE: Spiral CT of the head was performed without contrast. Axial, coronal and sagittal images were reviewed. The dose-length product (DLP) for this examination was 605.33 mGy-cm. The exposure w as tailored according to patient size, and iterative reconstruction (ASIR) was used as additional dos e reduction technique. Comparison is made to prior examination from 06/25/2018. FINDINGS: There is no acute intraparenchymal hemorrhage. No evidence of intraparenchymal brain mass lesion. No evidence of acute infarction. Please note that initial head CT has limited sensitivity f or small or acute infarctions. There is small chronic lacunar infarction in the [place]. There is che ventricular and subcortical hypodensity, nonspecific but probably related to small vessel ischemic di sease. There is prominence of the sulci and ventricles related to cerebral atrophy. There is intr acranial carotid arteriosclerosis. There are no extra-axial collections. There is no mass effect or midline shift. The orbits are unremarkable. Soft tissue is unremarkable. Mild left maxillary sinu s mucoperiosteal thickening. There is no interval change. IMPRESSION: 1. No acute intracranial findings. 2. Chronic age related findings. Reviewed, dictated and finalized at location A.
--- NOTE | ~2019-07-15 | XR_ITS ---
XR chest 1V portable 07/15/2019 15:00 Indication: Low blood pressure. Weakness. Procedure: AP portable chest Comparison: Comparison to multiple prior studies sequentially, with oldest reviewed study dated 09/2016. Findings: Heart size normal. No focal air space disease, pulmonary edema, pleural effusion or suspect ed pneumothorax. No acute osseous abnormality. There is deformity of the right glenohumeral joint, li sandra related to previous dislocation/fracture. Impression: 1: No acute cardiopulmonary abnormality. Reviewed, dictated and finalized at location A. Impression: 1: No acute cardiopulmonary abnormality.
--- NOTE | 2019-07-15 14:39 | ECG_ITS ---
Measurements Intervals [place] Rate: 74 P: 47 ND: 200 QRS: 51 QRSD: 95 T: -2 QT: 411 QTc: 458 Interpretive Statements SINUS RHYTHM EARLY PRECORDIAL R/S TRANSITION ST-T WAVE ABNORMALITY IN ANTERIOR LEADS- CONSIDER ISCHEMIA ABNORMAL ECG Electronically Signed On 07-15-2019 15:54:36 CDT by Cruz Pickard D.O.
[2019-07-15] MEDS: SODIUM CHLORIDE 0.9% IV 1,000 ML 999 ML IV CONT ×2 (14:40→22:17)
[2019-07-15 14:59] LABS: Occult Blood Negative (Negative)
[2019-07-15 15:00] LABS: Basophils Absolute Auto 0.05 K/mm3 (0.00-0.10); Basophils Percent Auto 0.7 % (0.0-1.0); Eosinophils Absolute Auto 0.05 K/mm3 (0.02-0.50); Eosinophils Percent Auto 0.7 % (1.0-6.0); Hematocrit 31.4 % (40.0-54.0); Immature Granulocyte Absolute 0.03 K/mm3 (0.00-0.00); Immature Granulocyte Percent A 0.4 % (0.0-0.0); Lymphocytes Absolute Auto 1.76 K/mm3 (1.10-4.50); Lymphocytes Percent Auto 25.8 % (18.0-42.0); Mean Corpuscular HGB Conc 31.8 g/dL (32.0-36.0); Mean Corpuscular Hemoglobin 31.6 pg (27.0-31.0); Mean Corpuscular Volume 99.4 fL (78.0-102.0); Mean Platelet Volume 8.9 fl (8.7-11.0); Monocytes Absolute Auto 0.77 K/mm3 (0.10-0.90); Monocytes Percent Auto 11.3 % (2.0-11.0); Neutrophils Absolute Auto 4.2 K/mm3 (1.7-7.2); Neutrophils Percent Auto 61.1 % (50.0-70.0); Platelet Count Result 379 K/mm3 (150-420); Red Blood Count 3.16 M/mm3 (4.70-6.10); Red Cell Distribution Width 16.6 % (11.6-14.4); White Blood Count 6.8 K/mm3 (4.8-10.8)
[2019-07-15 15:16] LABS: INR 1.1; Partial Thromboplastin Time 27.8 SEC (22.3-31.6); Prothrombin Time 11.3 Seconds (9.64-11.0)
[2019-07-15 15:17] LABS: Alanine Aminotransferase 10 U/L (16-63); Albumin Level 2.3 g/dL (3.4-5.0); Alkaline Phosphatase 65 U/L (46-116); Anion Gap 10.8 mmol/L (7-16); Aspartate Amino Transferase 20 U/L (15-37); Bilirubin,Total 1.7 mg/dL (0.00-1.00); Blood Urea Nitrogen 12 mg/dL (7-18); CRP 0.7 mg/dL (0.0-0.9); Calcium 8.4 mg/dL (8.5-10.1); Carbon Dioxide 25 mmol/L (21-32); Chloride 104 mmol/L (98-108); Estimated Glomerular Filt Rate > 60; Glucose 86 mg/dL (70-99); Lactic Acid Reflex 1.5 mmol/L (0.4-2.0); Lipase 29 U/L (73-393); Osmolality Calculated 280 mOsm/kg (285-295); Potassium 3.8 mmol/L (3.5-5.1); Sodium 136 mmol/L (136-145); Total Protein 5.6 g/dL (6.4-8.2)
[2019-07-15 15:18] LABS: Troponin I < 0.02 ng/mL (0.00-0.056)
[2019-07-15 15:33] LABS: Add Urine Microscopic? YES; Appearance Urine Clear (Clear); Bilirubin Urine Negative (Negative); Blood Urine Negative (Negative); Color Urine Yellow (Yellow); Glucose Urine UA Negative (Negative); Ketones Urine Negative (Negative); Leukocyte Esterase Ur 1+ LEU/UL (Negative); Nitrate Urine Negative (Negative); Protein Urine Negative (Negative); Urobilinogen Urine 0.2 mg/dL (0.2-1.0)
[2019-07-15 15:36] LABS: Bacteria Urine Trace /hpf; RBC Urine None seen /hpf (0-2); Renal Epithelial Cells Urine Few /hpf; Squamous Epithelial Cell Urine Few /hpf (Few); WBC Urine 0-3 /hpf (0-3)
--- NOTE | 2019-07-15 15:39 | ED.WEAKNESS ---
HPI - Weakness General Chief complaint: Weakness Stated complaint: Sick Time Seen by Provider: 07/15/19 14:40 Source: patient Mode of arrival: ambulatory Limitations: no limitations History of Present Illness HPI Narrative: 58-year-old man with a history of cirrhosis, chronic thrombosis of upper right and lower left extremities, alcohol abuse and coronary artery disease sent over from his doctor's office for hypotension. His blood pressure was measured at 56 over palpable. The patient states that he was feeling weak. Patient states that his symptoms progressed over a few days. He denies chest pain, fever, chills, cough, shortness of breath, abdominal pain, dysuria, hematuria or headache. He states that he has chronic diarrhea. 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 he states that he has no dizziness or lightheadedness but has weakness in his legs and back. He states he has had several falls, none of which caused him any injury. MD Complaint: generalized weakness and lack of energy Onset (ago): day(s) (2-3) Duration: constant Location: LLE and RLE Migration: none Severity: moderate Relieving factors: rest Exacerbating factors: other ( Standing) Associated symptoms: denies other symptoms Related Data Home Medications Medication Instructions Recorded Confirmed loperamide 4 mg PO QID PRN 05/14/19 07/15/19 atorvastatin 10 mg PO DAILY 06/30/19 07/15/19 calcitriol 0.5 mcg PO DAILY 06/30/19 07/15/19 furosemide 80 mg PO DAILY 06/30/19 07/15/19 losartan 100 mg PO DAILY 06/30/19 07/15/19 metoprolol tartrate 50 mg PO BID 06/30/19 07/15/19 tamsulosin 0.8 mg PO DAILY 06/30/19 07/15/19 Allergies Allergy/AdvReac Type Severity Reaction Status Date / Time No Known Allergies Allergy Unverified 09/06/16 20:58 Review of Systems Constitutional: Constitutional: Denies chills, Reports fatigue, Denies fever(s) and Reports weakness Eyes: Eyes: Denies change in vision and Denies photophobia ENT: Denies dysphagia, Denies nasal congestion and Denies sore throat Cardiovascular: Cardiovascular: Denies chest pain and Denies radiating jaw, neck or arm pain Respiratory: Respiratory: Denies cough, Denies dyspnea and Denies wheezing Gastrointestinal: Gastrointestinal: Denies abdominal pain, Reports diarrhea, Denies nausea and Denies vomiting Genitourinary: Genitourinary: Denies hematuria, Denies dysuria and Denies urinary frequency Musculoskeletal: Musculoskeletal: Denies arthralgias and Denies joint swelling Integumentary/Breasts: Skin/Breast: Denies pruritus, Denies erythema and Denies rash Neurologic: Reports as per HPI, Denies vertigo, Denies dizziness, Denies syncope, Denies headache(s) and Denies focal weakness Psychiatric: Psychiatric: Denies anxiety Endocrine: Endocrine: Denies polydipsia and Denies polyuria Hematologic/Lymphatic: Hematologic/Lymphatic: Denies easy bleeding and Denies easy bruising Allergic/Immunologic: Allergic/Immunologic: Denies lip swelling and Denies wheezing PMFSH Past Medical History Medical History Alcohol abuse CAD (coronary atherosclerotic disease) (Unknown) Chronic deep vein thrombosis (DVT) of femoral vein of left lower extremity (Unknown) Chronic thrombosis of right axillary vein (Unknown) Clostridium difficile infection (~04/2019) MELISA (generalized anxiety disorder) (Unknown) History of DVT (deep vein thrombosis) Hypertension Hypokalemia (Unknown) Hyponatremia (Unknown) 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
--- NOTE | 2019-07-15 17:14 | PC.NURSE ---
WILL CONTINUE TO AWAIT FLOOR NURSE FOR REPORT - PT CONDITION REMAINS UNCHANGED
--- NOTE | 2019-07-15 18:24 | ADMGEN ---
This patient, Calixto Lyons, was admitted to 2nd Floor Room 206-1. Patient/family oriented to hospital policies and general routines including ID bracelet, bed and alarms, visiting hours, pain management, procedures, bathroom and other care routines, personal items, smoking policy, room service/diet, and visiting hours. Valuables list has been completed. Information on how to activate the Rapid Response Team has been discussed. Patient/Family are encouraged to report perceived risks to care and to ask questions if they do not understand what they are told or what they should do.
--- NOTE | 2019-07-15 20:15 | PC.NURSE ---
pt able to feed himself dinner, required assist upon admission getting into bed, states he cant get up and needed to be pulled over with maxi slide, sitting up in bed, iv running
[2019-07-15] MEDS: SODIUM CHLORIDE 0.9% IV 1,000 ML 500 ML (20:18)
[2019-07-15] MEDS: FLUTICASONE PROPIONATE 0.05% NA SPR 16 GM BTL (*BKC) 2 SPRAY NASAL (20:40)
[2019-07-15] MEDS: TRAZODONE HCL 50 MG TABLET 100 MG PO (20:52)
--- NOTE | 2019-07-15 21:20 | PC.NURSE ---
bolus running, pt complains iv hurts, rate turned down, no other complaints at this time, pt sitting in bed watching tv
[2019-07-16] VITALS (8 sets, daily range): BP systolic 83–130; BP diastolic 48–74; PULSE 80–99; RESP 18–20; TEMP 35.8–36.6; O2SAT 94–97
[2019-07-16 02:04] LABS: Troponin I < 0.02 ng/mL (0.00-0.056)
[2019-07-16] MEDS: LEVOTHYROXINE SODIUM 25 MCG TABLET PO (05:24)
[2019-07-16 07:56] LABS: Basophils Absolute Auto 0.05 K/mm3 (0.00-0.10); Basophils Percent Auto 0.6 % (0.0-1.0); Eosinophils Absolute Auto 0.07 K/mm3 (0.02-0.50); Eosinophils Percent Auto 0.8 % (1.0-6.0); Hematocrit 33.4 % (40.0-54.0); Hemoglobin 10.6 g/dL (14.0-18.0); Immature Granulocyte Absolute 0.04 K/mm3 (0.00-0.00); Immature Granulocyte Percent A 0.5 % (0.0-0.0); Lymphocytes Absolute Auto 2.45 K/mm3 (1.10-4.50); Lymphocytes Percent Auto 27.8 % (18.0-42.0); Mean Corpuscular HGB Conc 31.7 g/dL (32.0-36.0); Mean Corpuscular Hemoglobin 31.2 pg (27.0-31.0); Mean Corpuscular Volume 98.2 fL (78.0-102.0); Monocytes Absolute Auto 0.84 K/mm3 (0.10-0.90); Monocytes Percent Auto 9.5 % (2.0-11.0); Neutrophils Absolute Auto 5.4 K/mm3 (1.7-7.2); Neutrophils Percent Auto 60.8 % (50.0-70.0); Platelet Count Result 395 K/mm3 (150-420); Red Cell Distribution Width 16.2 % (11.6-14.4); White Blood Count 8.8 K/mm3 (4.8-10.8)
[2019-07-16 08:12] LABS: Alanine Aminotransferase 14 U/L (16-63); Albumin Level 1.9 g/dL (3.4-5.0); Alkaline Phosphatase 68 U/L (46-116); Anion Gap 13.2 mmol/L (7-16); Aspartate Amino Transferase 20 U/L (15-37); Bilirubin,Total 0.8 mg/dL (0.00-1.00); Blood Urea Nitrogen 9 mg/dL (7-18); Calcium 7.8 mg/dL (8.5-10.1); Carbon Dioxide 21 mmol/L (21-32); Chloride 104 mmol/L (98-108); Estimated CRCL calculation 75 ml/min; Estimated Glomerular Filt Rate > 60; Glucose 85 mg/dL (70-99); Osmolality Calculated 277 mOsm/kg (285-295); Potassium 3.2 mmol/L (3.5-5.1); Sodium 135 mmol/L (136-145); Total Protein 5.6 g/dL (6.4-8.2)
[2019-07-16] MEDS: calcitrioL 0.25 MCG CAPSULE 0.5 MCG PO (09:08)
[2019-07-16] MEDS: TAMSULOSIN HCL 0.4 MG CAPSULE 0.8 MG PO (09:08)
[2019-07-16] MEDS: POTASSIUM CHLORIDE 20 MEQ TABLET PO (09:08)
[2019-07-16] MEDS: ATORVASTATIN 10 MG TABLET PO (09:12)
[2019-07-16] MEDS: SODIUM CHLORIDE 0.9% IV 1,000 ML 100 ML IV CONT (11:45)
--- NOTE | 2019-07-16 15:49 | PM.IMHP ---
H&P: HPI History of Present Illness Chief complaint: Sick Narrative: Calixto Lyons is a 58 year old male who presented to his primary care physician office with low blood pressure patient has a past medical history alcohol abuse, CAD, chronic DVT, chronic thrombosis, C diff, is [place] D, history of DVT, hypertension, hypothyroid, anemia, hyponatremia, megaloblastic anemia due to folate deficiency, and [place]. patient is a frequent Flyer of this hospital and has been here within the last 60 days. Patient noted that he has been weak for the last couple days and have fell 6 within the last 2 days. Patient does deny hitting his head falls. Patient does have a history alcohol abuse and his last admission his alcohol level was elevated. Patient noted that he has not had alcoholic since last admission he only drinks none alcoholic beer . Patient did note that for the last couple of days his lower extremities seem to be weak which caused him to Fall. He also noted that he has not been eating properly due to his inability to stand. While patient was in the ED he did receive IV fluid, CT of the head was negative, EKG was sinus rhythm. His UA did indicate leukocyte esterase and bacteria his UA and blood culture pending and his was not therapeutic it was 1.1. patient was also given a dose of Levaquin. He is being admitted for UTI hypotension and dehydration. His current vital signs 104/62, 99, 95% on room air. Patient denies SOB, CP, palpitation, extremity numbness, lightheadness, dizziness, constipation, diarrhea, chills or fever. talked to patient's primary care physician Dr. Murray agrees the patient's stay 1 more night to hydrate and discharged tomorrow. will need discharge he will adjustment in his medication. Review of Systems Constitutional: Constitutional: Reports fatigue, Reports frequent falls, Reports lethargy and Reports weakness Cardiovascular: Cardiovascular: Reports chest pain and Denies dyspnea Respiratory: Respiratory: Denies cough, Denies hemoptysis, Denies dyspnea and Denies wheezing Gastrointestinal: Gastrointestinal: Denies melena, Reports diarrhea ( chronic), Denies nausea, Denies vomiting and Denies hematemesis Genitourinary: Genitourinary: Denies dysuria, Denies urinary frequency, Denies urinary hesitancy and Denies urinary urgency Musculoskeletal: Musculoskeletal: Reports no additional musculoskeletal complaints Integumentary/Breasts: Skin/Breast: Reports system reviewed and no additional complaints, except as docu Neurologic: Denies confusion, Denies vertigo, Denies dizziness and Denies syncope Psychiatric: Psychiatric: Reports no additional psychiatric complaints Endocrine: Endocrine: Reports no additional endocrine complaints Hematologic/Lymphatic: Hematologic/Lymphatic: Reports no additional hematologic/lymphatic complaints [facility] Past Medical History Medical History Alcohol abuse CAD (coronary atherosclerotic disease) (Unknown) Chronic deep vein thrombosis (DVT) of femoral vein of left lower extremity (Unknown) Chronic thrombosis of right axillary vein (Unknown) Clostridium difficile infection (~04/2019) MELISA (generalized anxiety disorder) (Unknown) History of DVT (deep vein thrombosis) Hypertension Hypokalemia (Unknown) Hyponatremia (Unknown) 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
[2019-07-16] MEDS: FLUTICASONE PROPIONATE 0.05% NA SPR 16 GM BTL (*BKC) 2 SPRAY NASAL (20:31)
[2019-07-16] MEDS: APIXABAN 2.5 MG TABLET 10 MG PO (20:31)
[2019-07-16] MEDS: ACETAMINOPHEN 500 MG TABLET PO (21:20)
[2019-07-16] MEDS: TRAZODONE HCL 50 MG TABLET 100 MG PO (21:21)
--- NOTE | 2019-07-16 22:30 | PC.NURSE ---
Patient sleeping quielty in bed. IV fluids cont. per order. call light at side.
[2019-07-17] VITALS: BP 132/72; PULSE 84; RESP 20; TEMP 36.8; O2SAT 96
[2019-07-17] MEDS: SODIUM CHLORIDE 0.9% IV 1,000 ML 100 ML IV CONT ×2 (00:29→11:06)
--- NOTE | 2019-07-17 01:54 | PC.NURSE ---
IV & telemetry continue.
[2019-07-17 03:24] VITALS: BP 132/76; PULSE 86; RESP 20; TEMP 37.1; O2SAT 95
--- NOTE | 2019-07-17 03:27 | PC.NURSE ---
IV & telemetry continues. Denies discomfort so far this shift.
--- NOTE | 2019-07-17 04:55 | PC.NURSE ---
Watching TV. IV & telemetry continues. Denies discomfort.
[2019-07-17] MEDS: LEVOTHYROXINE SODIUM 25 MCG TABLET PO (05:58)
[2019-07-17 07:21] LABS: Hematocrit 28.7 % (40.0-54.0); Hemoglobin 9.2 g/dL (14.0-18.0); Mean Corpuscular HGB Conc 32.1 g/dL (32.0-36.0); Mean Corpuscular Hemoglobin 31.3 pg (27.0-31.0); Mean Corpuscular Volume 97.6 fL (78.0-102.0); Mean Platelet Volume 9.1 fl (8.7-11.0); Platelet Count Result 315 K/mm3 (150-420); Red Blood Count 2.94 M/mm3 (4.70-6.10); White Blood Count 7.7 K/mm3 (4.8-10.8)
[2019-07-17 07:39] LABS: Alanine Aminotransferase 9 U/L (16-63); Albumin Level 1.7 g/dL (3.4-5.0); Anion Gap 12.5 mmol/L (7-16); Aspartate Amino Transferase 14 U/L (15-37); Bilirubin,Total 0.4 mg/dL (0.00-1.00); Blood Urea Nitrogen 6 mg/dL (7-18); Calcium 7.8 mg/dL (8.5-10.1); Carbon Dioxide 25 mmol/L (21-32); Chloride 107 mmol/L (98-108); Estimated CRCL calculation 103 ml/min; Estimated Glomerular Filt Rate > 60; Glucose 95 mg/dL (70-99); Osmolality Calculated 289 mOsm/kg (285-295); Potassium 3.5 mmol/L (3.5-5.1); Sodium 141 mmol/L (136-145); Total Protein 4.7 g/dL (6.4-8.2)
[2019-07-17 07:55] LABS: Alkaline Phosphatase 58 U/L (46-116)
[2019-07-17 07:58] LABS: Magnesium 0.8 mg/dL (1.8-2.4)
[2019-07-17 08:00] VITALS: BP 133/71; PULSE 99; RESP 20; TEMP 37.8; O2SAT 94
--- NOTE | 2019-07-17 08:34 | ECG_ITS ---
Measurements Intervals [place] Rate: 92 P: 35 PA: 204 QRS: 31 QRSD: 94 T: 9 QT: 365 QTc: 453 Interpretive Statements SINUS RHYTHM EARLY PRECORDIAL R/S TRANSITION ST-T WAVE ABNORMALITY IN ANTERIOR LEADS- CONSIDER ISCHEMIA ABNORMAL ECG Electronically Signed On 07-17-2019 8:45:48 CDT by Cruz Pickard D.O.
[2019-07-17 09:00] VITALS: BP 133/71; PULSE 99; RESP 20; TEMP 37.8; O2SAT 94
[2019-07-17 09:22] LABS: Troponin I < 0.02 ng/mL (0.00-0.056)
[2019-07-17] MEDS: APIXABAN 2.5 MG TABLET 10 MG PO ×2 (10:02→21:40)
[2019-07-17] MEDS: POTASSIUM CHLORIDE 20 MEQ TABLET PO (10:03)
[2019-07-17] MEDS: TAMSULOSIN HCL 0.4 MG CAPSULE 0.8 MG PO (10:03)
[2019-07-17] MEDS: calcitrioL 0.25 MCG CAPSULE 0.5 MCG PO (10:04)
[2019-07-17] MEDS: ATORVASTATIN 10 MG TABLET PO (10:04)
[2019-07-17] MEDS: MAGNESIUM SULF 4 GM/WATER100ML 4 GM/100 ML BAG IVPB (11:06)
--- NOTE | 2019-07-17 13:48 | P.PNIM_ITS ---
Progress Note: A&P Assessment and Plan (1) Weakness: Code(s): R53.1 - Weakness Status: Acute Assessment and Plan: * possibly secondary to UTI versus dehydration * treat underlying cause * started PT/OT * once discharge continue outpatient PT OT (2) Anemia: Qualifiers: Anemia type: unspecified type Qualified Code(s): D64.9 - Anemia, unspecified Code(s): D64.9 - Anemia, unspecified Status: Acute Assessment and Plan: * stable * patient at baseline today 10.6 with hemoglobin 33.4 hematocrit * will complete a CBC in a.m. * no active bleeding noted (3) Coronary artery disease: Qualifiers: Associated angina: angina presence unspecified Coronary Disease- Associated Artery/Lesion type: unspecified vessel or lesion type [place] vs. transplanted heart: [place] heart Qualified Code(s): I25.10 - Atherosclerotic heart disease of [place] coronary artery without angina pectoris Code(s): I25.10 - Atherosclerotic heart disease of [place] coronary artery without angina pectoris Status: Acute Assessment and Plan: * continue statins * patient does not complain of any chest pains or palpitation * follow-up primary care physician on discharge (4) Chronic thrombosis of right axillary vein: Onset Date: Unknown Code(s): I82.A21 - Chronic embolism and thrombosis of right axillary vein Status: Acute Assessment and Plan: * spoke with Dr. Murray, will prefer for patient to be Eliquis Xarelto. * consulted heel caser- insurance has approved Eliquis * patient will discharge home on Eliquis * patient is not compliant with warfarin (5) Chronic deep vein thrombosis (DVT) of femoral vein of left lower extremity: Onset Date: Unknown Code(s): I82.512 - Chronic embolism and thrombosis of left femoral vein Status: Acute Assessment and Plan: * spoke with Dr. Murray, will prefer for patient to be Eliquis Xarelto. * consulted heel caser- insurance has approved Eliquis * patient will discharge home on Eliquis * patient is not compliant with warfarin (6) Abnormal INR: Code(s): R79.1 - Abnormal coagulation profile Status: Acute Assessment and Plan: * patient INR nontherapeutic * patient will discharge home on Eliquis due to noncompliance of warfarin * patient will follow-up primary care physician (7) History of DVT (deep vein thrombosis): Code(s): Z86.718 - Personal history of other venous thrombosis and embolism Status: Acute Assessment and Plan: * spoke with Dr. Murray, will prefer for patient to be Ty Azul. * consulted heel caser- insurance has approved Eliquis * patient will discharge home on Eliquis * patient is not compliant with warfarin (8) Hypertension: Code(s): I10 - Essential (primary) hypertension Status: Acute Assessment and Plan: * patient is currently hypotensive * will adjust blood pressure medication on discharge persist PCP * patient will discharge with 25 mg of metoprolol b.i.d. his Lasix will be decreased to 40 daily his losartan will also be decreased to 50 mg daily * (9) UTI (urinary tract infection): Code(s): N39.0 - Urinary tract infection, site not specified Status: Acute Assessment and Plan: * patient given Levaquin in ED, started Rocephin * patient will discharge home with antibiotics * white count within normal limits * repeat CBC in a.m. * patient afebrile * UA and blood cultures pending * UA with leukocyte
--- NOTE | 2019-07-17 13:48 | PM.IMPN ---
Progress Note: A&P Assessment and Plan (1) Weakness: Code(s): R53.1 - Weakness Status: Acute Assessment and Plan: possibly secondary to UTI versus dehydration treat underlying cause started PT/OT once discharge continue outpatient PT OT (2) Anemia: Qualifiers: Anemia type: unspecified type Qualified Code(s): D64.9 - Anemia, unspecified Code(s): D64.9 - Anemia, unspecified Status: Acute Assessment and Plan: stable patient at baseline today 10.6 with hemoglobin 33.4 hematocrit will complete a CBC in a.m. no active bleeding noted (3) Coronary artery disease: Qualifiers: Associated angina: angina presence unspecified Coronary Disease-Associated Artery/Lesion type: unspecified vessel or lesion type [place] vs. transplanted heart: [place] heart Qualified Code(s): I25.10 - Atherosclerotic heart disease of [place] coronary artery without angina pectoris Code(s): I25.10 - Atherosclerotic heart disease of [place] coronary artery without angina pectoris Status: Acute Assessment and Plan: continue statins patient does not complain of any chest pains or palpitation follow-up primary care physician on discharge (4) Chronic thrombosis of right axillary vein: Onset Date: Unknown Code(s): I82.A21 - Chronic embolism and thrombosis of right axillary vein Status: Acute Assessment and Plan: spoke with Dr. Murray, will prefer for patient to be Eliquis Xarelto. consulted patient case coordinator- insurance has approved Eliquis patient will discharge home on Eliquis patient is not compliant with warfarin (5) Chronic deep vein thrombosis (DVT) of femoral vein of left lower extremity: Onset Date: Unknown Code(s): I82.512 - Chronic embolism and thrombosis of left femoral vein Status: Acute Assessment and Plan: spoke with Dr. Murray, will prefer for patient to be Eliquis Xarelto. consulted patient case coordinator- insurance has approved Eliquis patient will discharge home on Eliquis patient is not compliant with warfarin (6) Abnormal INR: Code(s): R79.1 - Abnormal coagulation profile Status: Acute Assessment and Plan: patient INR nontherapeutic patient will discharge home on Eliquis due to noncompliance of warfarin patient will follow-up primary care physician (7) History of DVT (deep vein thrombosis): Code(s): Z86.718 - Personal history of other venous thrombosis and embolism Status: Acute Assessment and Plan: spoke with Dr. Murray, will prefer for patient to be Ty Azul. consulted patient case coordinator- insurance has approved Eliquis patient will discharge home on Eliquis patient is not compliant with warfarin (8) Hypertension: Code(s): I10 - Essential (primary) hypertension Status: Acute Assessment and Plan: patient is currently hypotensive will adjust blood pressure medication on discharge persist PCP patient will discharge with 25 mg of metoprolol b.i.d. his Lasix will be decreased to 40 daily his losartan will also be decreased to 50 mg daily (9) UTI (urinary tract infection): Code(s): N39.0 - Urinary tract infection, site not specified Status: Acute Assessment and Plan: patient given Levaquin in ED, started Rocephin patient will discharge home with antibiotics white count within normal limits repeat CBC in a.m. patient afebrile UA and blood cultures pending UA with leukocyte esterase and bacteria (10) Dehydration: Code(s): E86.0 - Dehydration Status: Acute Assessment and Plan: hydrate patient with IV fluid hold Lasix CBC and BMP in a.m. encourage fluid intakes (11) Hypotension: Code(s): I95.9 - Hypotension, unspecified Status: Acute Assessment and Plan: possibly secondary to hypovolemia orthostatic hypotension asses
[2019-07-17 14:42] LABS: Magnesium 1.7 mg/dL (1.8-2.4)
[2019-07-17 16:00] VITALS: BP 112/66; PULSE 103; PULSE 94; RESP 16; TEMP 36.9; O2SAT 95
[2019-07-17] MEDS: FERROUS SULFATE 324 MG TABLET PO (16:58)
[2019-07-17] MEDS: MAGNESIUM SULF 2 GM/WATER 50ML 2 GM/50 ML BAG IVPB (16:58)
[2019-07-17 20:00] VITALS: BP 129/83; PULSE 90; RESP 18; TEMP 37.4
--- NOTE | 2019-07-17 20:00 | PC.NURSE ---
Given fresh ice water.
[2019-07-17] MEDS: TRAZODONE HCL 50 MG TABLET 100 MG PO (21:42)
[2019-07-17] MEDS: FLUTICASONE PROPIONATE 0.05% NA SPR 16 GM BTL (*BKC) 2 SPRAY NASAL (21:42)
[2019-07-18] VITALS (8 sets, daily range): BP systolic 103–151; BP diastolic 66–89; PULSE 87–133; RESP 16–18; TEMP 37–37.5; O2SAT 95–98
--- NOTE | 2019-07-18 02:30 | PC.NURSE ---
Sleeping, no signs of pain or discomfort. Skin pink, respirations easy/unlabored.
[2019-07-18] MEDS: LEVOTHYROXINE SODIUM 25 MCG TABLET PO (05:46)
[2019-07-18 06:18] LABS: Hemoglobin 9.1 g/dL (14.0-18.0); Mean Corpuscular HGB Conc 32.5 g/dL (32.0-36.0); Mean Corpuscular Hemoglobin 31.6 pg (27.0-31.0); Mean Corpuscular Volume 97.2 fL (78.0-102.0); Mean Platelet Volume 8.8 fl (8.7-11.0); Platelet Count Result 337 K/mm3 (150-420); Red Blood Count 2.88 M/mm3 (4.70-6.10); White Blood Count 7.8 K/mm3 (4.8-10.8)
[2019-07-18 06:32] LABS: Alanine Aminotransferase 9 U/L (16-63); Albumin Level 1.7 g/dL (3.4-5.0); Alkaline Phosphatase 49 U/L (46-116); Anion Gap 11.5 mmol/L (7-16); Aspartate Amino Transferase 12 U/L (15-37); Bilirubin,Total 0.4 mg/dL (0.00-1.00); Blood Urea Nitrogen 4 mg/dL (7-18); Calcium 7.4 mg/dL (8.5-10.1); Carbon Dioxide 25 mmol/L (21-32); Chloride 108 mmol/L (98-108); Estimated CRCL calculation 114 ml/min; Estimated Glomerular Filt Rate > 60; Glucose 90 mg/dL (70-99); Magnesium 1.4 mg/dL (1.8-2.4); Osmolality Calculated 288 mOsm/kg (285-295); Potassium 3.5 mmol/L (3.5-5.1); Sodium 141 mmol/L (136-145); Total Protein 4.8 g/dL (6.4-8.2)
[2019-07-18 06:34] LABS: Phosphorus 4.1 mg/dL (2.6-4.7)
[2019-07-18] MEDS: APIXABAN 2.5 MG TABLET 10 MG PO (08:28)
[2019-07-18] MEDS: TAMSULOSIN HCL 0.4 MG CAPSULE 0.8 MG PO (08:28)
[2019-07-18] MEDS: POTASSIUM CHLORIDE 20 MEQ TABLET PO (08:29)
[2019-07-18] MEDS: calcitrioL 0.25 MCG CAPSULE 0.5 MCG PO (08:29)
[2019-07-18] MEDS: ATORVASTATIN 10 MG TABLET PO (08:29)
[2019-07-18 08:45] LABS: INR 1.2; Prothrombin Time 12.7 Seconds (9.64-11.0)
[2019-07-18] MEDS: MAGNESIUM SULF 4 GM/WATER100ML 4 GM/100 ML BAG IVPB (09:35)
--- NOTE | 2019-07-18 11:01 | P.PNCROSS_ITS ---
Event Note Event Note Event Note: Admit with UTI, hypotension and weakness. Chronic alcohol abuse. Magnesium 0.8 yesterday, 1.4 today. Lateral ischemic changes on EKG. Pt. feels much stronger, able to be up and walk. Cor: RR and R, no g/m P) Mag riders until Magnesium is over 2.0, then repeat ECG looking for re solution of inverted T waves. Started on Eliquis; approved for O.P. Discussed with Kenton Burris. I agree with her plan.
[2019-07-18] MEDS: CEFDINIR 300 MG CAPSULE PO (11:33)
[2019-07-18 12:26] LABS: Magnesium 2.1 mg/dL (1.8-2.4)
--- NOTE | 2019-07-18 13:01 | ECG_ITS ---
Measurements Intervals [place] Rate: 109 P: 41 NC: 177 QRS: 39 QRSD: 89 T: -5 QT: 351 QTc: 474 Interpretive Statements SINUS TACHYCARDIA EARLY PRECORDIAL R/S TRANSITION ST-T WAVE ABNORMALITY IN ANTERIOR LEADS- CONSIDER ISCHEMIA BASELINE WANDER- V2 ABNORMAL ECG Electronically Signed On 07-19-2019 8:11:47 CDT by Cruz Pickard D.O.
--- NOTE | 2019-07-18 13:21 | P.DS_ITS ---
DS: Diagnosis Admitting Diagnosis Admitting Diagnosis: Weakness <Kenton Burris HORSESHOER-C - Last Filed: 07/18/19 13:33> Discharge Diagnosis (1) Weakness: Code(s): R53.1 - Weakness <Kenton BurrisJIMENA - Last Filed: 07/18/19 13:33> Status: Acute <Kenton BurrisJIMENA - Last Filed: 07/18/19 13:33> Assessment and Plan: * RESOLVED * possibly secondary to UTI versus dehydration * treat underlying cause * once discharge continue outpatient PT OT <Kenton BurrisJIMENA - Last Filed: 07/18/19 13:33> (2) Anemia: Qualifiers: Anemia type: unspecified type Qualified Code(s): D64.9 - Anemia, unspecified <Kenton BurrisJIMENA - Last Filed: 07/18/19 13:33> Code(s): D64.9 - Anemia, unspecified <Kenton BurrisJIMENA - Last Filed: 07/18/19 13:33> Status: Acute <Kenton BurrisJIMENA - Last Filed: 07/18/19 13:33> Assessment and Plan: * stable * patient at baseline * no active bleeding noted <Kenton BurrisJIMENA - Last Filed: 07/18/19 13:33> (3) Coronary artery disease: Qualifiers: Associated angina: angina presence unspecified Coronary Disease-Associated Artery/Lesion type: unspecified vessel or lesion type [place] vs. transplanted heart: [place] heart Qualified Code(s): I25.10 - Atherosclerotic heart disease of [place] coronary artery without angina pectoris <Kenton BraggMarcelina DaytonJIMENA - Last Filed: 07/18/19 13:33> Code(s): I25.10 - Atherosclerotic heart disease of [place] coronary artery without angina pectoris <Kenton BraggJIMENA Sosa - Last Filed: 07/18/19 13:33> Status: Acute <Kenton BurrisJIMENA - Last Filed: 07/18/19 13:33> Assessment and Plan: * continue statins * patient does not complain of any chest pains or palpitation * follow-up primary care physician on discharge <TORO HolguinP-C - Last Filed: 07/18/19 13:33> (4) Chronic thrombosis of right axillary vein: Onset Date: Unknown <TORO HolguinP-C - Last Filed: 07/18/19 13:33> Code(s): I82.A21 - Chronic embolism and thrombosis of right axillary vein <Kenton Burris HORSESHOER-C - Last Filed: 07/18/19 13:33> Status: Acute <Kenton Burris HORSESHOER-C - Last Filed: 07/18/19 13:33> Assessment and Plan: * spoke with Dr. Murray, will prefer for patient to be Eliquis Xarelto. * consulted case liner- insurance has approved Eliquis * patient will discharge home on Eliquis * patient is not compliant with warfarin <Kenton Burris HORSESHOER-C - Last Filed: 07/18/19 13:33> (5) Chronic deep vein thrombosis (DVT) of femoral vein of left lower extremity: Onset Date: Unknown <Kenton Burris HORSESHOER-C - Last Filed: 07/18/19 13:33> Code(s): I82.512 - Chronic embolism and thrombosis of left femoral vein <TORO HolguinP-C - Last Filed: 07/18/19 13:33> Status: Acute <Kenton Burris HORSESHOER-C - Last Filed: 07/18/19 13:33> Assessment and Plan: * spoke with Dr. Murray, will prefer for patient to be Eliquis Xarelto. * consulted case liner- insurance has approved Eliquis * patient will discharge home on Eliquis * patient is not compliant with warfarin <Kenton Burris HORSESHOER-C - Last Filed: 07/18/19 13:33> (6) Abnormal INR: Code(s): R79.1 - Abnormal coagulation profile <Kenton Burris HORSESHOER-C - Last Filed: 07/18/19 13:33> Status: Acute <Kenton Burris HORSESHOER-C - Last Filed: 07/18/19 13:33> Assessment and Plan: * patient INR nonth
--- NOTE | 2019-07-18 13:21 | PM.DS ---
DS: Diagnosis Admitting Diagnosis Admitting Diagnosis: Weakness <Kenton BraggJIMENA Sosa - Last Filed: 07/18/19 13:33> Discharge Diagnosis (1) Weakness: Code(s): R53.1 - Weakness <Kenton Sutherland JIMENA Burris - Last Filed: 07/18/19 13:33> Status: Acute <Kenton Sutherland JIMENA Burris - Last Filed: 07/18/19 13:33> Assessment and Plan: RESOLVED possibly secondary to UTI versus dehydration treat underlying cause once discharge continue outpatient PT OT <Yassinekhai YemiJIMENA Sosa - Last Filed: 07/18/19 13:33> (2) Anemia: Qualifiers: Anemia type: unspecified type Qualified Code(s): D64.9 - Anemia, unspecified <Kenton BraggJIMENA Sosa - Last Filed: 07/18/19 13:33> Code(s): D64.9 - Anemia, unspecified <Kenton YemiJIMENA Sosa - Last Filed: 07/18/19 13:33> Status: Acute <Kenton BraggJIMENA Sosa - Last Filed: 07/18/19 13:33> Assessment and Plan: stable patient at baseline no active bleeding noted <JIMENA Holguin - Last Filed: 07/18/19 13:33> (3) Coronary artery disease: Qualifiers: Associated angina: angina presence unspecified Coronary Disease-Associated Artery/Lesion type: unspecified vessel or lesion type [place] vs. transplanted heart: [place] heart Qualified Code(s): I25.10 - Atherosclerotic heart disease of [place] coronary artery without angina pectoris <Kenton YemiJIMENA Sosa - Last Filed: 07/18/19 13:33> Code(s): I25.10 - Atherosclerotic heart disease of [place] coronary artery without angina pectoris <JIMENA Holguin - Last Filed: 07/18/19 13:33> Status: Acute <Kenton YemiJIMENA Sosa - Last Filed: 07/18/19 13:33> Assessment and Plan: continue statins patient does not complain of any chest pains or palpitation follow-up primary care physician on discharge <JIMENA Holguin - Last Filed: 07/18/19 13:33> (4) Chronic thrombosis of right axillary vein: Onset Date: Unknown <Kenton Burris TRANSCRIPT CLERK-C - Last Filed: 07/18/19 13:33> Code(s): I82.A21 - Chronic embolism and thrombosis of right axillary vein <Kenton BraggMarcelina Burris TRANSCRIPT CLERK-C - Last Filed: 07/18/19 13:33> Status: Acute <Kenton Burris TRANSCRIPT CLERK-C - Last Filed: 07/18/19 13:33> Assessment and Plan: spoke with Dr. Murray, will prefer for patient to be Eliquis Xarelto. consulted case finisher- insurance has approved Eliquis patient will discharge home on Eliquis patient is not compliant with warfarin <Kenton Burris TRANSCRIPT CLERK-C - Last Filed: 07/18/19 13:33> (5) Chronic deep vein thrombosis (DVT) of femoral vein of left lower extremity: Onset Date: Unknown <Kenton BraggMarcelina Burris TRANSCRIPT CLERK-C - Last Filed: 07/18/19 13:33> Code(s): I82.512 - Chronic embolism and thrombosis of left femoral vein <Kenton BraggMarcelina Burris TRANSCRIPT CLERK-C - Last Filed: 07/18/19 13:33> Status: Acute <Kenton Burris TRANSCRIPT CLERK-C - Last Filed: 07/18/19 13:33> Assessment and Plan: spoke with Dr. Murray, will prefer for patient to be Eliquis Xarelto. consulted case finisher- insurance has approved Eliquis patient will discharge home on Eliquis patient is not compliant with warfarin <Kenton BraggMarcelina Burris TRANSCRIPT CLERK-C - Last Filed: 07/18/19 13:33> (6) Abnormal INR: Code(s): R79.1 - Abnormal coagulation profile <Yassinekhai YemiMarcelina Burris TRANSCRIPT CLERK-C - Last Filed: 07/18/19 13:33> Status: Acute <Kenton BraggMarcelina Burris TRANSCRIPT CLERK-C - Last Filed: 07/18/19 13:33> Assessment and Plan: patient INR nontherapeutic patient will discharge home on Eliquis due to noncompliance of warfarin patient will follow-up primary care physician <JIMENA Holguin - Last Filed: 07/18/19 13:33> (7) History of DVT (deep vein thrombosis): Code(s): Z86.718 - Personal history of other venous thrombosis and embolism <JIMENA Holguin - Last F
--- NOTE | 2019-07-18 14:27 | PC.NURSE ---
PT SPILLED URINAL ON TOP OF SWEATPANTS. REFUSED TO CALL OR ALLOW NOTIFCATION TO FAMILY TO BRING CLEAN ONES TO CHANGE INTO, I WILL JUST WEAR THESE OTHERWISE THEY WILL HAVE TO GO ALL THE WAY TO MY HOUSE BEFORE THEY CAN PICK ME UP. OFFERED TO ALLOW PATIENT TO WEAR A GOWN AND COVER WITH BLANKET. I WILL JUST WEAR THEM. DISPOSABLE PAD OBTAINED TO PLACE IN CAR SEAT WHEN FAMILY ARRIVES TO TRANSPORT. PT ASSISTED FROM BED TO W/C, ALL BELONGINGS GATHERED. HOME MEDICATIONS GIVEN BACK TO PATIENT. PRINTED PRESCRIPTIONS GIVEN TO PATIENT IN CASE THEY WERE NOT ELECTRONICALLY SENT. REVIEWED DISCHARGE INSTRUCTIONS AND AWARE OF REPEAT MAGNESIUM LEVEL LAB FOR 07/21/19. ALL QUESTIONS ANSWERED. AWAITING FAMILY ARRIVAL FOR DISCHARGE.
== END 2019-07-18 14:45 | disposition home or self-care (01) | DRG 690 ==
LOC: CHSED 14:38 → CHS2ND 16:42
PROVIDERS: Nurse Practitioner; Admitting Provider Emergency Medicine; Emergency Provider Emergency Medicine; PCP Internal Medicine; Visit Provider Emergency Medicine
DX: N39.0 Urinary tract infection, site not specified (principal); I82.A21 Chronic embolism and thrombosis of right axillary vein; I82.512 Chronic embolism and thrombosis of left femoral vein; E86.0 Dehydration; E83.42 Hypomagnesemia; I95.9 Hypotension, unspecified; I10 Essential (primary) hypertension; R79.1 Abnormal coagulation profile; I25.10 Atherosclerotic heart disease of native coronary artery without angina pectoris; D53.1 Other megaloblastic anemias, not elsewhere classified; F10.10 Alcohol abuse, uncomplicated; F41.1 Generalized anxiety disorder; I73.9 Peripheral vascular disease, unspecified; I25.2 Old myocardial infarction; Z87.891 Personal history of nicotine dependence
CPT/HCPCS: 36415; 70450; 71045; 80053; 81001; 82272; 83605; 83690; 83735; 84100; 84484; 85025; 85027; 85610; 85730; 86140; 87040; 87077; 87086; 87088; 87186; 93005; 96361; 96365; 96366; 97161; 97165; 99285; A9270; G0378; J0696; J1956; J3475; J7030

== ENCOUNTER 2019-07-21 14:03 | Outpatient (CLI) | payer MEDICARE, SELFPAY ==
[2019-07-21 15:25] LABS: Magnesium 1.3 mg/dL (1.8-2.4)
== END 2019-07-21 14:04 | disposition home or self-care (01) ==
LOC: CHSLAB 14:04
PROVIDERS: PCP Internal Medicine; Visit Provider Nurse Practitioner
DX: E83.42 Hypomagnesemia (principal)
CPT/HCPCS: 36415; 83735

== ENCOUNTER 2019-09-13 11:59 | Observation (INO) | payer MEDICARE, MEDICAID, SELFPAY ==
[2019-09-13] VITALS (11 sets, daily range): BP systolic 31–143; BP diastolic 11–94; PULSE 82–119; RESP 15–18; TEMP 36.6–36.8; O2SAT 95–100; BMI 28.5
--- NOTE | ~2019-09-13 | CT_ITS ---
EXAMINATION: CT abdomen pelvis w con DATE: 09/13/2019 16:38 INDICATION: Abdominal pain, vomiting TECHNIQUE: Computed tomography (CT) of the abdomen and pelvis was performed with 100 cc Omnipaque 350 intravenous contrast. Automated exposure control and iterative reconstruction technique were employe d. Exam dose: 746.67 mGy-cm total exam DLP. COMPARISON: 04/17/2019 CT abdomen pelvis FINDINGS: There are mild bilateral pleural effusions and mild bilateral dependent lower lobe atelecta sis. Heart size is normal. No pericardial effusion. Small sliding hiatal hernia. Status post partial gastrectomy. Diffuse hepatic steatosis. No hepatic, splenic, pancreatic, and adrenal or renal space-occupying mass lesion is evident. The gallbladder is surgically absent. No bile duct or pancreatic duct dilatation. There is minimal ca lcification of the uncinate process of the pancreas consistent with chronic pancreatitis. Approximately 7 mm nonobstructing left renal calculus and overlying mild left renal scarring. There is a 3 x 5 mm distal left ureteral calculus situated near the ureterovesical junction, without any appreciable hydroureteronephrosis. The urinary bladder is unremarkable. There are prominent calcifications of the prostate gland. Bilateral vas deferens calcifications, which strongly suggests diabetes. There is a prominent amount of fecal material in the rectum and colon. There are scattered diverticul a of the left and right colon. There is mild pericolic fat stranding at the distal descending colon, suggesting mild localized diverticulitis. No CT evidence of appendicitis. No bowel obstruction, bowel wall thickening, pneumatosis or intraperi toneal free air. There is calcification of the abdominal aorta and branches but no abdominal aortic aneurysm. No intra peritoneal or retroperitoneal or pelvic mass lesion or adenopathy or ascites. There are multiple compression fracture deformities of the thoracic and lumbar spine, relatively spar ing only L2 the lumbar vertebrae, involving particularly T7 and T8 of the thoracic spine. Degenerativ e changes of the thoracic and lumbar spine. IMPRESSION: Mild localized diverticulitis of the distal descending colon; no evidence of abscess Scattered diverticula of left and right colon 3 x 5 mm distal left ureteral calculus near the GE junction, without any appreciable hydroureteroneph rosis 7 mm nonobstructing left renal calculus Bilateral vas deferens calcifications, suggesting diabetes Prominent prostate gland calcifications Small sliding hiatal hernia Status post partial gastrectomy Hepatic steatosis Status post cholecystectomy Multiple compression fractures of the thoracic and lumbar spine Reviewed, dictated and finalized at [facility]. Reviewed, dictated and finalized at [facility]. IMPRESSION: Mild localized diverticulitis of the distal descending colon; no e vidence of abscess Scattered diverticula of left and right colon 3 x 5 mm distal left ureteral calculus near the GE junction, without any apprec iable hydroureteronephrosis 7 mm nonobstructing left renal calculus Bilateral vas deferens calcifications, suggesting diabetes Prominent prostate gland calcifications Small sliding hiatal hernia Status post partial gastrectomy Hepatic steatosis Status post cholecystectomy Multiple compression fractures of the thoracic and lumbar spine
--- NOTE | ~2019-09-13 | XR_ITS ---
EXAMINATION: XR chest 1V portable DATE: 09/13/2019 12:34 INDICATION: Weakness TECHNIQUE: frontal view of the chest was obtained. COMPARISON: Chest radiograph dated 07/15/2019 FINDINGS: The lungs remain clear with no focal airspace opacities, pulmonary edema, pleural effusion or pneumot horax. The cardiomediastinal silhouette is normal. 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 IMPRESSION: 1. No acute cardiopulmonary disease. Reviewed, dictated and finalized at location [facility].
--- NOTE | ~2019-09-13 | CT_ITS ---
EXAMINATION: CT brain wo con DATE: 09/13/2019 12:28 INDICATION: Frontal head contusion resulting from head injury several days prior TECHNIQUE: Computed tomography (CT) of the head was performed without intravenous contrast. Sagittal and coronal reconstructions were performed. The mA was adjusted according to patient size. Iterative reconstruction technique was employed. The dose-length product was 681.00 mGy-cm. COMPARISON: head CT dated 07/15/2019 FINDINGS: Small scalp hematoma at the vertex. No calvarial fracture. Again seen is a small central pontine old lacunar infarct. No acute intracranial hemorrhage, acute infarction or abnormal extra axial fluid col lection. There is mild scattered white matter hypoattenuation consistent with chronic small vessel is chemic disease. Symmetric prominence of the sulci consistent with mild age-appropriate diffuse cerebr al volume loss. No mass/mass effect. Mild to moderate mucosal thickening in the bilateral maxillary, ethmoid and sphenoid sinuses. The orbits and mastoid air cells are normal. IMPRESSION: 1. No fracture or acute intracranial process. 2. Stable appearance of age-related changes including mild diffuse volume loss and mild scattered whi te matter hypoattenuation consistent with chronic small vessel ischemic disease. Reviewed, dictated and finalized at location [facility]. IMPRESSION: 1. No fracture or acute intracranial process. 2. Stable appearance of age-related changes including mild diffuse volume loss and mild scattered white matter hypoattenuation consistent with chronic small v essel ischemic disease.
--- NOTE | 2019-09-13 12:04 | ECG_ITS ---
Measurements Intervals [place] Rate: 88 P: 46 VA: 192 QRS: 46 QRSD: 92 T: 17 QT: 389 QTc: 473 Interpretive Statements SINUS RHYTHM EARLY PRECORDIAL R/S TRANSITION BORDERLINE ST ABNORMALITY- ANTERIOR LEADS BORDERLINE ECG Electronically Signed On 09-14-2019 7:16:29 CDT by Cruz Pickard D.O.
[2019-09-13 12:13] LABS: Glucose Point of Care 46 (65-105)
[2019-09-13] MEDS: DEXTROSE 10% 250 ML 999 ML IV CONT (12:14)
[2019-09-13 12:51] LABS: Basophils Absolute Auto 0.04 K/mm3 (0.00-0.10); Basophils Percent Auto 0.5 % (0.0-1.0); Eosinophils Absolute Auto 0.02 K/mm3 (0.02-0.50); Eosinophils Percent Auto 0.2 % (1.0-6.0); Hematocrit 28.3 % (40.0-54.0); Hemoglobin 9.4 g/dL (14.0-18.0); Immature Granulocyte Absolute 0.06 K/mm3 (0.00-0.00); Immature Granulocyte Percent A 0.7 % (0.0-0.0); Lymphocytes Percent Auto 13.1 % (18.0-42.0); Mean Corpuscular HGB Conc 33.2 g/dL (32.0-36.0); Mean Corpuscular Hemoglobin 32.8 pg (27.0-31.0); Mean Corpuscular Volume 98.6 fL (78.0-102.0); Mean Platelet Volume 8.5 fl (8.7-11.0); Monocytes Absolute Auto 0.36 K/mm3 (0.10-0.90); Monocytes Percent Auto 4.3 % (2.0-11.0); Neutrophils Absolute Auto 6.8 K/mm3 (1.7-7.2); Neutrophils Percent Auto 81.2 % (50.0-70.0); Platelet Count Result 172 K/mm3 (150-420); Red Blood Count 2.87 M/mm3 (4.70-6.10); Red Cell Distribution Width 14.6 % (11.6-14.4); White Blood Count 8.4 K/mm3 (4.8-10.8)
--- NOTE | 2019-09-13 12:58 | ED.WEAKNESS ---
HPI - Weakness General Source: patient Mode of arrival: EMS Limitations: no limitations History of Present Illness HPI Narrative: 59-year-old male alcoholic well known to [facility]. called for EMS this morning because he's had no appetite and has felt more lightheaded over the last few days. His legs have been weak for several weeks. EMT blood glucose of 39 treated with glucagon. He denies nausea vomiting abdominal pain He states about 10 days ago, after COVID restrictions were lifted, he started drinking Joaquim Savage daily, including today. He remembers falling when walking out of a local tavern 4 days ago. He fell again three days ago at home; he thinks he tripped on a carpet. He remembers falling to his carpeted floor and hitting his nose and forehead. He does not believe there was any loss of consciousness. Admitted 07/14 to [facility] with hypotension, dehydration, hx of recent falls and UTI, enterococcus sensitive to ampicillin. Losartan was stopped. D.C. on Lasix 20 mg BID and metoprolol 25 mg BID. Hx of chronic thrombosis of right axillary and left femoral vein. Last week he got a 30 day script for Eliquis filled. Related Data Home Medications Medication Instructions Recorded Confirmed atorvastatin 10 mg PO DAILY 06/30/19 09/13/19 calcitriol 0.5 mcg PO DAILY 06/30/19 09/13/19 tamsulosin 0.8 mg PO DAILY 06/30/19 09/13/19 Allergies Allergy/AdvReac Type Severity Reaction Status Date / Time No Known Allergies Allergy Unverified 09/06/16 20:58 Review of Systems Constitutional: Constitutional: Denies chills and Denies fever(s) ENT: Denies dysphagia and Denies sore throat Comments: dry mouth Cardiovascular: Cardiovascular: Denies chest pain Respiratory: Respiratory: Denies no additional respiratory complaints and Denies cough Comments: shortness of breath yesterday only, resolved with albuterol Gastrointestinal: Comments: States has chronic abdominal tenderness no worse today. Chronic diarrhea made worse with magnesium, controlled with loperamide. Genitourinary: Genitourinary: Denies dysuria and Denies scrotal swelling Musculoskeletal: Musculoskeletal: Denies arthralgias Integumentary/Breasts: Skin/Breast: Reports other (abrasion on left elbow since falling several days ago) Neurologic: Reports headache(s) (Denies headache after contusion) Hematologic/Lymphatic: Hematologic/Lymphatic: Denies easy bleeding PMFSH Social History Social History Smoking packs per day: 0.5 Smoking cigarettes per day: 10.0 Years smoked: 40 Smoking pack-years: 20.00 Smoking status: Current every day smoker Tobacco type: cigarettes Second hand tobacco smoke exposure: Yes Alcohol intake: current Drinks per week: 10 Substance use: never Substance use type: does not use Gender identity (if verbalized by the patient): Male Spiritual care concerns: No Agree to blood products: Yes Exam Narrative: Exam Narrative: Alert and oriented. Speech is slurred. Const: General: cooperative and no acute distress Nutritional Appearance: overweight Orientation/consciousness: patient oriented x3 Limitations: no limitations HENMT: Head: no scalp tenderness and other (linear ecchymosis across forehead. eschar on bridge of nose. ) Face and sinus: sinuses nontender Mouth: Yes dry mucous membranes and Yes other (most teeth are missing; has several decayed teeth. ) Eyes: General: appearance normal, both eyes and all related structures Sclera: sclerae normal Neck: Neck: normal visual inspection, full ROM, no lymphadenopathy and nontender Chest: Chest palpation & inspection: normal inspection of the chest and tenderness (right medial inferior posterior chest. No bruises or abrasions. ) Resp: Effort & Inspection: normal respiratory effort and able to speak in complete sentences Auscultation: clear to auscultation bilaterally Cardio: Palpation: normal PMI Rat
[2019-09-13 13:01] LABS: Magnesium 1.8 mg/dL (1.8-2.4)
[2019-09-13 13:05] LABS: Add Urine Microscopic? YES; Appearance Urine Clear (Clear); Bilirubin Urine Negative (Negative); Blood Urine Negative (Negative); Color Urine Yellow (Yellow); Glucose Urine UA Negative (Negative); Ketones Urine 2+ (Negative); Leukocyte Esterase Ur 1+ (Negative); Nitrate Urine Negative (Negative); Protein Urine Negative (Negative); Specific Grav Ur 1.015 (1.010-1.020); pH Urine 6.5 (5.0-8.0)
[2019-09-13 13:10] LABS: Alanine Aminotransferase 10 U/L (16-63); Albumin Level 1.9 g/dL (3.4-5.0); Alkaline Phosphatase 62 U/L (46-116); Anion Gap 13.9 mmol/L (7-16); Aspartate Amino Transferase 23 U/L (15-37); Bilirubin,Total 0.6 mg/dL (0.00-1.00); Blood Urea Nitrogen 14 mg/dL (7-18); Calcium 6.9 mg/dL (8.5-10.1); Carbon Dioxide 25 mmol/L (21-32); Chloride 101 mmol/L (98-108); Estimated CRCL calculation 99 ml/min; Estimated Glomerular Filt Rate > 60; Ethanol 136 mg/dL (0-6); Glucose 157 mg/dL (70-99); Osmolality Calculated 285 mOsm/kg (285-295); Potassium 3.9 mmol/L (3.5-5.1); Sodium 136 mmol/L (136-145); Total Protein 4.6 g/dL (6.4-8.2)
[2019-09-13 13:11] LABS: Troponin I < 0.02 ng/mL (0.00-0.056)
[2019-09-13 13:11] LABS: Bacteria Urine 1+ /hpf; Mucus Urine None seen /lpf; RBC Urine None seen /hpf (0-2); Squamous Epithelial Cell Urine Rare /hpf (Few)
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
[2019-09-13 13:58] LABS: Ammonia 16 umol/L (11-32)
--- NOTE | 2019-09-13 15:10 | PC.NURSE ---
URINE CULTURE ORDER ENTERED INCORRECTLY BY JESSIKA. VALERIA, STREET LIGHT INSPECTOR STATES THE ORDER NEEDS TO BE REPLACED. RN ENTERED CORRECT ORDER. VALERIA AWARE. VALERIA TO FULFILL.
[2019-09-13] MEDS: ONDANSETRON INJ 4 MG/2 ML VIAL IV PUSH (16:20)
--- NOTE | 2019-09-13 16:20 | PC.NURSE ---
Patient given zofran per order for nausea. Taken down to CT via wheelchair. Transferred from bed to wheelchair with minimal assist. Patient denies any dizziness/lightheadedness.
--- NOTE | 2019-09-13 16:35 | PC.NURSE ---
Patient back to room from CT. Patient able to reposition self in be with no issues. Denies any nausea at this time.
[2019-09-13] MEDS: METOPROLOL TARTRATE 25 MG TABLET PO (17:01)
[2019-09-13] MEDS: chlordiazePOXIDE 25 MG CAPSULE PO ×2 (17:02→23:57)
[2019-09-13] MEDS: DEXTROSE 5%/LACTATED RINGERS 1,000 ML 999 ML IV CONT (17:02)
[2019-09-13] MEDS: ALBUTEROL SULFATE (*SP) INHALER 2 PUFF INHALATION (17:10)
[2019-09-13] MEDS: SODIUM CHLORIDE 0.9% IV 1,000 ML 999 ML IV CONT (18:09)
[2019-09-13] MEDS: cefTRIAXone 1 GM in DEXTROSE 5% IN WATER 50 ML IVPB (18:09)
--- NOTE | 2019-09-13 19:09 | PC.NURSE ---
Normal Saline Bolus Started at 1809, Infusion complete at 1909. Patient tolerated well.
[2019-09-13 19:47] LABS: Lactic Acid 3.6 mmol/L (0.4-2.0)
[2019-09-13] MEDS: SODIUM CHLORIDE 0.9% IV 1,000 ML 250 ML IV CONT (19:51)
--- NOTE | 2019-09-13 20:00 | PC.NURSE ---
Patient watching tv. IVF infusing without difficulty. Denies pain/complaints/needs @ this time. No distress noted. Call light in reach.
[2019-09-13] MEDS: FLUTICASONE PROPIONATE 0.05% NA SPR 16 GM BTL (*BKC) 2 SPRAY NASAL (20:47)
[2019-09-13] MEDS: traZODone HCL 50 MG TABLET 100 MG PO (20:47)
[2019-09-13] MEDS: APIXABAN 2.5 MG TABLET 5 MG PO (20:48)
--- NOTE | 2019-09-13 21:05 | PC.NURSE ---
Patient watching tv. IVF infusing without difficulty. Denies pain/complaints/needs @ this time. No distress noted. Call light in reach.
--- NOTE | 2019-09-13 22:00 | PC.NURSE ---
Patient appears to be sleeping by the rise and fall of his chest. Respirations even and unlabored. IVF infusing without difficulty to site in right hand. No distress noted. Call light in reach.
--- NOTE | 2019-09-13 23:34 | PC.NURSE ---
Called Dr. Morgan to clarify new orders; New orders clarified.
[2019-09-13] MEDS: DEXTROSE 5%/0.9% SOD CHL 1,000 ML 120 ML IV CONT (23:58)
[2019-09-14] VITALS (10 sets, daily range): BP systolic 126–157; BP diastolic 72–91; PULSE 78–119; RESP 18–20; TEMP 36.6–37.1; O2SAT 94–97
--- NOTE | 2019-09-14 00:05 | PC.NURSE ---
Patient awakened easily for VS. IVF infusing without difficulty. Denies pain/complaints/needs @ this time. No distress noted. Call light in reach.
[2019-09-14 05:35] LABS: Blood Urea Nitrogen 15 mg/dL (7-18); Calcium 6.8 mg/dL (8.5-10.1); Carbon Dioxide 27 mmol/L (21-32); Chloride 105 mmol/L (98-108); Estimated CRCL calculation 105 ml/min; Estimated Glomerular Filt Rate > 60; Glucose 119 mg/dL (70-99); Osmolality Calculated 285 mOsm/kg (285-295); Sodium 137 mmol/L (136-145)
[2019-09-14 05:41] LABS: Lactic Acid 1.2 mmol/L (0.4-2.0)
[2019-09-14] MEDS: chlordiazePOXIDE 25 MG CAPSULE PO ×4 (05:54→23:34)
--- NOTE | 2019-09-14 06:30 | PC.NURSE ---
Patient's left hand and forearm now edematous along with the right hand just around the thumb and index finger area. Charge nurse notified.
--- NOTE | 2019-09-14 06:35 | PC.NURSE ---
Notified Dr. Morgan of pt's puffiness in his arms and hands. Orders received and noted.
[2019-09-14] MEDS: ALBUTEROL SULFATE (*SP) INHALER 2 PUFF INHALATION ×4 (06:36→23:33)
[2019-09-14] MEDS: TAMSULOSIN HCL 0.4 MG CAPSULE 0.8 MG PO (09:06)
[2019-09-14] MEDS: APIXABAN 2.5 MG TABLET 5 MG PO ×2 (09:06→21:34)
[2019-09-14] MEDS: ATORVASTATIN 10 MG TABLET PO (09:06)
[2019-09-14] MEDS: FERROUS SULFATE 324 MG TABLET PO (09:07)
[2019-09-14] MEDS: calcitrioL 0.25 MCG CAPSULE 0.5 MCG PO (09:07)
[2019-09-14] MEDS: METOPROLOL TARTRATE 25 MG TABLET PO ×2 (09:07→21:34)
[2019-09-14] MEDS: POTASSIUM CHLORIDE 20 MEQ TABLET PO (09:08)
--- NOTE | 2019-09-14 11:32 | PM.IMHP ---
H&P: HPI History of Present Illness Chief complaint: UTI dehydration <Pooja Bullard NP - Last Filed: 09/14/19 16:34> Narrative: Calixto Lyons is a 59 year old male admitted this morning via ER by EMS ambulance. He states that he has no appetite and has felt more lightheaded over the last few days. His legs have been weak for several weeks. EMT treated his blood glucose of 39 with glucagon. He denies nausea vomiting abdominal pain. He states about 10 days ago, after COVID restrictions were lifted, he started drinking Joaquim Savage daily, including yesterday. History of uncontrolled alcoholism. He remembers falling when walking out of a local tavern 4 days ago. He fell again three days ago at home; he thinks he tripped on a carpet. He remembers falling to his carpeted floor and hitting his nose and forehead. He does not believe there was any loss of consciousness. He was also admitted 07/14 to [facility] with hypotension, dehydration, hx of recent falls and UTI, enterococcus sensitive to ampicillin. His Losartan and Lasix was stopped; he was continued on metoprolol 25 mg BID. 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 Today, he continues to have intermittent positive orthostatic hypotension, light-headedness, and weakness with ambulation. His ablumin is significantly lower at 1.9 and his LUE and RLE extremities appear to have some positional chronic edema. He was treated with 4 L IVFs for dehdyration and needs to keep up with oral hydration. He also has significantly low calcium levels at 6.8 an 6.9. Continue his home calcium dosing. His lactic acid level improved from 4.0 to 1.2 today. Treating his UTI with IV rocephin, awaiting sensitivities. Monitoring for alcohol withdrawals and DTs. Ethyl alcohol was 136 and ammonia 16 at admission. Troponin WNL. Ordered PT/OT evaluation. Will recommend Home Health RN/PT/OT at discharge. CT scan ordered and without acute concerns. <Pooja Bullard NP - Last Filed: 09/14/19 16:34> Review of Systems Constitutional: Constitutional: Denies chills, Denies fever(s) and Reports headache(s) (Denies headache after contusion) <Pooja Bullard NP - Last Filed: 09/14/19 16:34> Eyes: Eyes: Denies exophthalmos, Denies diplopia, Denies floaters and Denies loss of peripheral vision <Pooja Bullard NP - Last Filed: 09/14/19 16:34> ENT: Denies dysphagia, Reports headache(s) (Denies headache after contusion) and Denies sore throat <Pooja Bullard NP - Last Filed: 09/14/19 16:34> Cardiovascular: Cardiovascular: Denies chest pain <Pooja Bullard NP - Last Filed: 09/14/19 16:34> Respiratory: Respiratory: Denies no additional respiratory complaints and Denies cough <Pooja Bullard NP - Last Filed: 09/14/19 16:34> Gastrointestinal: Gastrointestinal: Denies dysphagia <Pooja Bullard NP - Last Filed: 09/14/19 16:34> Genitourinary: Genitourinary: Denies dysuria and Denies scrotal swelling <Pooja Bullard NP - Last Filed: 09/14/19 16:34> Musculoskeletal: Musculoskeletal: Denies arthralgias <Pooja Bullard NP - Last Filed: 09/14/19 16:34> Integumentary/Breasts: Skin/Breast: Reports other (abrasion on left elbow since falling several days ago) <Pooja Bullard NP - Last Filed: 09/14/19 16:34> Neurologic: Reports headache(s) (Denies headache after contusion) <Pooja Bullard NP - Last Filed: 09/14/19 16:34> Endocrine: Endocrine: Denies excessive sweating <Pooja Bullard NP - Last Filed: 09/14/19 16:34> Hematologic/Lymphatic: Hematologic/Lymphatic: Denies easy bleeding <Pooja Bullard NP - Last Filed: 09/14/19 16:34> [facility] Social History Social History: Social History Smoking packs per day: 0.5 Smoking cigarettes per day: 10.0 Years smoked: 40 Smoking pack-years: 20.00 Smoking status: Current every day smoker Tobacco type: cigarettes Second hand to
--- NOTE | 2019-09-14 11:38 | PM.DS ---
DS: Summary Time Spent with Patient Time attestation: Total time spent providing and/or coordinating discharge services: Exam Narrative: Exam Narrative: Alert and oriented. Speech is slurred. Const: General: cooperative and no acute distress Nutritional Appearance: overweight Orientation/consciousness: patient oriented x3 Limitations: no limitations HENMT: Head: no scalp tenderness and other (linear ecchymosis across forehead. eschar on bridge of nose. ) Face and sinus: sinuses nontender Mouth: Yes dry mucous membranes and Yes other (most teeth are missing; has several decayed teeth. ) Eyes: General: appearance normal, both eyes and all related structures Sclera: sclerae normal Neck: Neck: normal visual inspection, full ROM, no lymphadenopathy and nontender Chest: Chest palpation & inspection: normal inspection of the chest and tenderness (right medial inferior posterior chest. No bruises or abrasions. ) Resp: Effort & Inspection: normal respiratory effort and able to speak in complete sentences Auscultation: clear to auscultation bilaterally Cardio: Palpation: normal PMI Rate: regular rate Rhythm: regular rhythm Heart sounds: S1 normal heart sound present, S2 normal heart sound present and no murmurs GI: Inspection: other (Several longitudinal scars of mid-abdomen) : General: Yes no CVA tenderness Testes: no epidiymal tenderness Back/Spine/Pelvis: Back: no CVA tenderness Neuro: General: patient oriented x3 DS: Data Data Completed and Pending Labs on day of discharge: Labs from last 24 hours 09/14/19 09/14/19 09/13/19 04:53 04:53 19:23 WBC RBC Hgb Hct MCV MCH MCHC RDW Plt Count MPV Immature Gran % (Auto) Neut % (Auto) Lymph % (Auto) [place] % (Auto) Eos % (Auto) Baso % (Auto) Lymph # (Auto) [place] # (Auto) Eos # (Auto) Baso # (Auto) Abs Immat Gran (auto) Absolute Neuts (auto) Absolute Nucleated RBC Nucleated RBC % Sodium 137 Potassium 4.0 Chloride 105 Carbon Dioxide 27 Anion Gap 9.0 BUN 15 Creatinine 0.64 L Estim Creat Clear Calc 105 Estimated GFR > 60 Glucose 119 H POC Capillary Glucose Calculated Osmolality 285 Lactic Acid 1.2 3.6 H Calcium 6.8 L Magnesium Total Bilirubin AST ALT Alkaline Phosphatase Ammonia Troponin I Total Protein Albumin Urine Color Urine Appearance Urine pH Ur Specific [place] Urine Protein Urine Glucose (UA) Urine Ketones Ur Blood (Man) Urine Nitrate Urine Bilirubin Urine Urobilinogen Ur Leukocyte Esterase Urine RBC Urine WBC Ur Squamous Epith Cells Urine Bacteria Urine Mucus Ethyl Alcohol 09/13/19 09/13/19 09/13/19 15:56 13:44 12:54 WBC RBC Hgb Hct MCV MCH MCHC RDW Plt Count MPV Immature Gran % (Auto) Neut % (Auto) Lymph % (Auto) [place] % (Auto) Eos % (Auto) Baso % (Auto) Lymph # (Auto) [place] # (Auto) Eos # (Auto) Baso # (Auto) Abs Immat Gran (auto) Absolute Neuts (auto) Absolute Nucleated RBC Nucleated RBC % Sodium Potassium Chloride Carbon Dioxide Anion Gap BUN Creatinine Estim Creat Clear Calc Estimated GFR Glucose POC Capillary Glucose Calculated Osmolality Lactic Acid 4.0 H Calcium Magnesium Total Bilirubin AST ALT Alkaline Phosphatase Ammonia 16 Troponin I Total Protein Albumin Urine Color Yellow Urine Appearance Clear Urine pH 6.5 Ur Specific [place] 1.015 Urine Protein Negative Urine Glucose (UA) Negative Urine Ketones 2+ H Ur Blood (Man) Negative Urine Nitrate Negative Urine Bilirubin Negative Urine Urobilinogen 4.0 H Ur Leukocyte Esterase 1+ H Urine RBC None seen Urine WBC 10-15 H Ur Squamous Epith Cells Rare Urine Bacteri
[2019-09-14] MEDS: MAGNESIUM OXIDE 400 MG TABLET PO (11:59)
[2019-09-14] MEDS: ALBUMIN HUMAN 25% 25 GM/100 ML 100 ML IVPB ×2 (20:40→22:11)
[2019-09-14] MEDS: traZODone HCL 50 MG TABLET 100 MG PO (21:35)
[2019-09-14] MEDS: FLUTICASONE PROPIONATE 0.05% NA SPR 16 GM BTL (*BKC) 2 SPRAY NASAL (21:35)
[2019-09-15] VITALS: BP 134/76; PULSE 94; RESP 18; TEMP 37.2; O2SAT 93
--- NOTE | 2019-09-15 00:45 | PC.NURSE ---
Patient appears to be sleeping by the rise and fall of his chest. Respirations even and unlabored. Urinal emptied of clear yellow urine. No distress noted. Call light in reach.
--- NOTE | 2019-09-15 01:50 | PC.NURSE ---
Patient appears to be sleeping by the rise and fall of his chest. Respirations even and unlabored. No distress noted. Call light in reach.
[2019-09-15 04:00] VITALS: BP 143/87; PULSE 100; RESP 18; TEMP 37.1; O2SAT 94
[2019-09-15] MEDS: ALBUTEROL SULFATE (*SP) INHALER 2 PUFF INHALATION ×2 (06:18→12:27)
[2019-09-15] MEDS: ALBUMIN HUMAN 25% 25 GM/100 ML 100 ML IVPB (06:21)
[2019-09-15] MEDS: chlordiazePOXIDE 25 MG CAPSULE PO ×2 (06:22→12:27)
[2019-09-15 06:49] LABS: Hematocrit 26.5 % (40.0-54.0); Hemoglobin 7.9 g/dL (14.0-18.0); Mean Corpuscular HGB Conc 29.8 g/dL (32.0-36.0); Mean Corpuscular Hemoglobin 33.8 pg (27.0-31.0); Mean Corpuscular Volume 113.2 fL (78.0-102.0); Mean Platelet Volume 9.6 fl (8.7-11.0); Platelet Count Result 107 K/mm3 (150-420); Red Blood Count 2.34 M/mm3 (4.70-6.10); White Blood Count 3.3 K/mm3 (4.8-10.8)
[2019-09-15 06:54] LABS: Alanine Aminotransferase 9 U/L (16-63); Albumin Level 2.4 g/dL (3.4-5.0); Alkaline Phosphatase 55 U/L (46-116); Ammonia 43 umol/L (11-32); Anion Gap 9.7 mmol/L (7-16); Aspartate Amino Transferase 16 U/L (15-37); Bilirubin,Total 0.4 mg/dL (0.00-1.00); Blood Urea Nitrogen 8 mg/dL (7-18); Calcium 7.5 mg/dL (8.5-10.1); Carbon Dioxide 24 mmol/L (21-32); Chloride 106 mmol/L (98-108); Estimated CRCL calculation 117 ml/min; Estimated Glomerular Filt Rate > 60; Glucose 91 mg/dL (70-99); Osmolality Calculated 280 mOsm/kg (285-295); Potassium 3.7 mmol/L (3.5-5.1); Sodium 136 mmol/L (136-145); Total Protein 4.9 g/dL (6.4-8.2)
[2019-09-15 06:55] LABS: Ethanol < 3 mg/dL (0-6)
[2019-09-15 07:05] LABS: Neutrophils Percent Manual 59 % (46-73); Total Cells Counted 100
[2019-09-15 07:06] LABS: Band Neutrophils Percent 0 % (0-6); Basophils Percent Manual 0 % (0-1); Eosinophils Absolute Manual 0.13 K/mm3 (0.02-0.5); Eosinophils Percent Manual 4 % (1-6); Lymphocytes Absolute Manual 1.05 K/mm3 (1.1-4.5); Lymphocytes Percent Manual 32 % (18-44); Monocytes Absolute Manual 0.16 K/mm3 (0.1-0.90); Monocytes Percent Manual 5 % (3-9); Neutrophils Absolute Manual 1.94 K/mm3 (1.3-6.7)
[2019-09-15 08:00] VITALS: BP 138/93; BP 148/93; PULSE 86; PULSE 88; RESP 18; TEMP 36.1; O2SAT 94
[2019-09-15 08:02] VITALS: BP 143/88; PULSE 88
[2019-09-15] MEDS: TAMSULOSIN HCL 0.4 MG CAPSULE 0.8 MG PO (08:56)
[2019-09-15 08:57] VITALS: PULSE 86
[2019-09-15] MEDS: calcitrioL 0.25 MCG CAPSULE 0.5 MCG PO (08:57)
[2019-09-15] MEDS: ATORVASTATIN 10 MG TABLET PO (08:57)
[2019-09-15] MEDS: MAGNESIUM OXIDE 400 MG TABLET PO (08:57)
[2019-09-15] MEDS: APIXABAN 2.5 MG TABLET 5 MG PO (08:57)
[2019-09-15] MEDS: METOPROLOL TARTRATE 25 MG TABLET PO (08:57)
[2019-09-15] MEDS: FERROUS SULFATE 324 MG TABLET PO (08:58)
--- NOTE | 2019-09-15 12:00 | PM.DS ---
DS: Admitting Diagnosis Admitting Diagnosis Admitting Diagnosis: Dehydration and UTI DS: Discharge Diagnosis Discharge Diagnosis (1) Acute dehydration: Code(s): E86.0 - Dehydration Status: Acute Assessment and Plan: RESOLVED. given over 4 L IVFs at admission encouraged to have increase oral hydration renal function WNL and stable BPs orthostatic at admission, now are WNL and stay up with standing and activity. recommend Home health RN/PT Drink at least 4 mugs of water daily. -->You should be urinating often throughout the day and your urine should NOT be paco or dark in color. (2) Urinary tract infection: Qualifiers: Hematuria presence: without hematuria Urinary tract infection type: acute cystitis Qualified Code(s): N30.00 - Acute cystitis without hematuria Code(s): N39.0 - Urinary tract infection, site not specified Status: Acute Assessment and Plan: UA with 1+ bacteria, 1+ leuk, 10-15 WBC WBC WNL with no fevers treating UTI with IV rocephin, received 2 doses, discharged on Cefdinir oral. blood and urine cultures remain pending - PCP will have to F/U on results. encourage oral hydration now, after 4 L IVF hydration daily oral Cranberry caps - Over the Counter Cranberry Extract Take your antibiotics as prescribed. (3) Alcohol abuse: Code(s): F10.10 - Alcohol abuse, uncomplicated Status: Acute Assessment and Plan: no DTs noted, no tremors, slight tachycardia noted with HR 90-100s. no agitation, no anger, not combative resting between interventions given AA meeting locations and times advised to stop alcohol use for remainder of lifetime has daughter and son check on him, but they do not supply him with alcohol. VS monitoring. elevated alcohol level at admission, WNL in morning lactic level now WNL daily oral mag Troponin WNL (4) Serum ammonia increased: Code(s): E72.20 - Disorder of urea cycle metabolism, unspecified Status: Acute Assessment and Plan: Get your labs drawn on September 16 and have the results sent to Primary Care Physician Dr. Murray Draw CBC and CMP and Ammonia labs and send results to his PCP. Alcohol withdrawal monitoring per home health. Treat Weakness and Instability with home health Physical Therapy 3 times a week Follow up with your Primary Care Physician to be seen in 1-14 days, for your admission due to Dehydration (vomiting with poor oral hydration), Weakness, Alcohol Intoxication, low Albumin level (poor dietary intake), Anemia, and elevated Ammonia level. Follow up with Home Health Care Nursing (RN) and Physical Therapist - as instructed and ordered. Home Health Care Nursing (RN) can aid in monitoring your Anemia, Hydration Level (through labs drawn on September 16, vital signs, orthostatic vital signs, oral hydration and oral intake), medication compliance, Neuro status due to Ammonia level elevation, and cessation of alcohol consumption. Attend your local [place] WEEKLY Alcoholics Anonymous Meeting (you have the location/date/time) to support you. Contact Meals on Wheels and/or Drink Ensure or other Protein supplements/shakes - to help improve your daily protein intake at home. No driving or operating equipment/machines while drinking alcohol. STOP drinking alcohol - you are having serious LIVER disease due to the alcohol consumption. (5) Weakness: Code(s): R53.1 - Weakness Status: Acute Assessment and Plan: Stay hydrated improve dietary intake alcohol cessation Get Orthostatic vital signs checked By home health nursing or home health PT improve and recover from Anemia and Dehydration treat and prevent UTIs Home Health PT and RN care F/U with PCP DS: Summary Time Spent with Patient Time attestation: Total time spent providing and/or coordinating discharge services:>60 minutes Exam Const: General: cooperative and no acute distress Nutritional Appearance: overwei
--- NOTE | 2019-09-15 14:46 | PC.NURSE ---
1030l hand and r foot/leg are swollen. encouraged to keep them elevated and move fingers.
--- NOTE | 2019-09-15 14:48 | PC.NURSE ---
1430 daughter outside at [facility], [place]. dc orders went over with him. encouraged not drink alcohol. keep feet elevated when up and keep l arm elevated and keep moving fingers. encourgaed to follow through with appointments. iv removed and pressure drg applied. torin irving
== END 2019-09-15 14:30 | disposition home health service (06) ==
LOC: CHSED 12:01 → CHS2ND 14:46
PROVIDERS: Nurse Practitioner; Admitting Provider Family Medicine; Emergency Provider Family Medicine; PCP Internal Medicine; Visit Provider Family Medicine
DX: N39.0 Urinary tract infection, site not specified (principal); E86.0 Dehydration; I82.A21 Chronic embolism and thrombosis of right axillary vein; I82.512 Chronic embolism and thrombosis of left femoral vein; F10.20 Alcohol dependence, uncomplicated; F17.210 Nicotine dependence, cigarettes, uncomplicated; Z79.01 Long term (current) use of anticoagulants
CPT/HCPCS: 36415; 70450; 71045; 74177; 80048; 80053; 80307; 81001; 82140; 83605; 83735; 84484; 85025; 87077; 87086; 87088; 87186; 93005; 96361; 96365; 96366; 96367; 96375; 97161; 97165; 99283; 99285; A9270; G0378; J0696; J2405; J3411; J3475; J7030; J7042; J7120; J7121; P9047; Q9965

== ENCOUNTER 2019-09-17 11:43 | Outpatient (CLI) | payer MEDICARE, SELFPAY ==
[2019-09-17 11:59] LABS: Basophils Absolute Auto 0.02 K/mm3 (0.00-0.10); Basophils Percent Auto 0.3 % (0.0-1.0); Eosinophils Absolute Auto 0.16 K/mm3 (0.02-0.50); Eosinophils Percent Auto 2.6 % (1.0-6.0); Hematocrit 28.6 % (40.0-54.0); Hemoglobin 8.8 g/dL (14.0-18.0); Immature Granulocyte Absolute 0.04 K/mm3 (0.00-0.00); Immature Granulocyte Percent A 0.6 % (0.0-0.0); Lymphocytes Absolute Auto 1.95 K/mm3 (1.10-4.50); Lymphocytes Percent Auto 31.2 % (18.0-42.0); Mean Corpuscular HGB Conc 30.8 g/dL (32.0-36.0); Mean Corpuscular Hemoglobin 33.1 pg (27.0-31.0); Mean Corpuscular Volume 107.5 fL (78.0-102.0); Mean Platelet Volume 9.6 fl (8.7-11.0); Monocytes Absolute Auto 0.43 K/mm3 (0.10-0.90); Monocytes Percent Auto 6.9 % (2.0-11.0); Neutrophils Absolute Auto 3.7 K/mm3 (1.7-7.2); Neutrophils Percent Auto 58.4 % (50.0-70.0); Platelet Count Result 125 K/mm3 (150-420); Red Blood Count 2.66 M/mm3 (4.70-6.10); Red Cell Distribution Width 15.1 % (11.6-14.4); White Blood Count 6.3 K/mm3 (4.8-10.8)
[2019-09-17 12:21] LABS: Alanine Aminotransferase 10 U/L (16-63); Albumin Level 2.6 g/dL (3.4-5.0); Alkaline Phosphatase 58 U/L (46-116); Ammonia 56 umol/L (11-32); Aspartate Amino Transferase 13 U/L (15-37); Bilirubin,Total 0.2 mg/dL (0.00-1.00); Blood Urea Nitrogen 7 mg/dL (7-18); Calcium 7.8 mg/dL (8.5-10.1); Carbon Dioxide 23 mmol/L (21-32); Chloride 104 mmol/L (98-108); Estimated Glomerular Filt Rate > 60; Glucose 118 mg/dL (70-99); Osmolality Calculated 281 mOsm/kg (285-295); Sodium 136 mmol/L (136-145); Total Protein 5.6 g/dL (6.4-8.2)
== END 2019-09-17 11:44 | disposition home or self-care (01) ==
LOC: CHSLAB 11:47
PROVIDERS: PCP Internal Medicine; Visit Provider Nurse Practitioner
DX: F10.10 Alcohol abuse, uncomplicated (principal); E86.0 Dehydration; N39.0 Urinary tract infection, site not specified
CPT/HCPCS: 36415; 80053; 82140; 85025

== ENCOUNTER 2019-10-16 18:00 | Observation (INO) | payer MEDICARE, MEDICAID, SELFPAY ==
[2019-10-16 18:00] VITALS: BP 86/52; PULSE 104; RESP 13; TEMP 36.7; O2SAT 100
--- NOTE | 2019-10-16 18:07 | ED.PSYCH ---
HPI - Psych General Chief Complaint: Psychiatric Symptoms Stated Complaint: AMB Time Seen by Provider: 10/16/19 18:00 Source: patient and EMS Mode of arrival: EMS Limitations: no limitations History of Present Illness HPI Narrative: 59-year-old man with a history of alcoholic cirrhosis with ascites brought in today by EMS for suicidal ideation. Patient states this last year through weeks has been feeling depressed because of his situation. He states that he is still going to the bar and was there as recent as 2 days ago where he is drinking nonalcoholic beer. He states that today he had 8 travel size bottles of Fireball and denies taking any other medications in order to harm self. He states that he has felt suicidal in the last day or so and looked at knife in his kitchen but after he thought about it, he felt bad for his children. MD complaint: suicidal ideation and altered mental status Onset (ago): day(s) (2) Duration: constant History of same: No Relieving factors: none Exacerbating factors: none Context: recent alcohol abuse Associated psychiatric symptoms: suicidal ideation Treatments prior to arrival: none If self harm: admits thoughts of self harm Details of plan: He stated to EMS that he thought about using a knife from his kitchen. Related Data Home Medications Medication Instructions Recorded Confirmed atorvastatin 10 mg PO DAILY 06/30/19 10/16/19 calcitriol 0.5 mcg PO DAILY 06/30/19 10/16/19 tamsulosin 0.8 mg PO DAILY 06/30/19 10/16/19 Allergies Allergy/AdvReac Type Severity Reaction Status Date / Time No Known Allergies Allergy Unverified 09/06/16 20:58 Review of Systems Constitutional: Constitutional: Denies chills, Denies fever(s) and Denies weakness Eyes: Eyes: Denies change in vision and Denies photophobia ENT: Denies dysphagia, Denies nasal congestion and Denies sore throat Cardiovascular: Cardiovascular: Denies chest pain and Denies radiating jaw, neck or arm pain Respiratory: Respiratory: Denies cough, Denies dyspnea and Denies wheezing Gastrointestinal: Gastrointestinal: Denies abdominal pain, Denies nausea and Denies vomiting Comments: black stools. no bloody stools or vomitus. Genitourinary: Genitourinary: Denies hematuria, Denies dysuria and Denies urinary frequency Musculoskeletal: Musculoskeletal: Denies arthralgias and Denies joint swelling Integumentary/Breasts: Skin/Breast: Denies pruritus, Denies erythema and Denies rash Neurologic: Denies vertigo, Denies dizziness, Denies syncope, Denies focal weakness and Denies numbness Psychiatric: Psychiatric: Reports depression Endocrine: Endocrine: Denies excessive sweating and Denies polyuria Hematologic/Lymphatic: Hematologic/Lymphatic: Denies easy bleeding and Denies easy bruising Allergic/Immunologic: Allergic/Immunologic: Denies throat swelling and Denies tongue swelling [facility] Social History Social History Smoking packs per day: 0.5 Smoking cigarettes per day: 10.0 Years smoked: 40 Smoking pack-years: 20.00 Smoking status: Current every day smoker Tobacco type: cigarettes Second hand tobacco smoke exposure: Yes Alcohol intake: current Drinks per week: 10 Substance use: never Substance use type: does not use Gender identity (if verbalized by the patient): Male Spiritual care concerns: No Agree to blood products: Yes Exam Const: General: no acute distress and alert Orientation/consciousness: patient oriented x3 Limitations: no limitations HENMT: Head: normal to inspection Ears: external ears normal, TM's normal bilaterally and EAC's normal Face and sinus: normal facial exam Throat: posterior oropharynx normal and uvula midline Eyes: Conjunctivae: conjunctivae normal Pupils: Equal, round and reactive pupils present EOM: EOMs intact bilaterally Resp: Effort & Inspection: normal respiratory effort and not labored Auscult
--- NOTE | 2019-10-16 18:08 | ECG_ITS ---
Measurements Intervals [place] Rate: 100 P: 20 VA: 195 QRS: 36 QRSD: 86 T: 24 QT: 396 QTc: 513 Interpretive Statements SINUS TACHYCARDIA EARLY PRECORDIAL R/S TRANSITION BORDERLINE ST-T WAVE ABNORMALITY- ANTEROLAT/INF LEADS BASELINE ARTIFACT- I, II, III, AVR, AVL, AVF, V6 ABNORMAL ECG Electronically Signed On 10-17-2019 8:12:07 CDT by Cruz Pickard D.O.
[2019-10-16 18:24] LABS: Glucose Point of Care 146 (65-105)
[2019-10-16 18:58] LABS: Basophils Absolute Auto 0.02 K/mm3 (0.00-0.10); Basophils Percent Auto 0.4 % (0.0-1.0); Eosinophils Absolute Auto 0.07 K/mm3 (0.02-0.50); Eosinophils Percent Auto 1.3 % (1.0-6.0); Hematocrit 28.3 % (40.0-54.0); Hemoglobin 9.1 g/dL (14.0-18.0); Immature Granulocyte Absolute 0.04 K/mm3 (0.00-0.00); Immature Granulocyte Percent A 0.7 % (0.0-0.0); Lymphocytes Absolute Auto 1.27 K/mm3 (1.10-4.50); Lymphocytes Percent Auto 22.7 % (18.0-42.0); Mean Corpuscular HGB Conc 32.2 g/dL (32.0-36.0); Mean Corpuscular Hemoglobin 35.3 pg (27.0-31.0); Mean Corpuscular Volume 109.7 fL (78.0-102.0); Monocytes Absolute Auto 0.31 K/mm3 (0.10-0.90); Monocytes Percent Auto 5.5 % (2.0-11.0); Neutrophils Absolute Auto 3.9 K/mm3 (1.7-7.2); Neutrophils Percent Auto 69.4 % (50.0-70.0); Nucleated Red Blood Cells Absolute Auto 0.02 K/mm3 (0.00-0.00); Nucleated Red Blood Cells Perc 0.4 % (0-0.0); Platelet Count Result 108 K/mm3 (150-420); Red Blood Count 2.58 M/mm3 (4.70-6.10); Red Cell Distribution Width 18.2 % (11.6-14.4); White Blood Count 5.6 K/mm3 (4.8-10.8)
[2019-10-16 19:05] LABS: Appearance Urine Cloudy (Clear); Bilirubin Urine Negative (Negative); Color Urine Yellow (Yellow); Glucose Urine UA Negative (Negative); Ketones Urine Trace (Negative); Leukocyte Esterase Ur 2+ LEU/UL (Negative); Nitrate Urine Negative (Negative); Protein Urine Negative (Negative); Specific Grav Ur 1.015 (1.010-1.020)
[2019-10-16 19:12] LABS: Add Urine Microscopic? YES; Bacteria Urine 3+ /hpf; Blood Urine Trace-Intact (Negative); Squamous Epithelial Cell Urine None seen /hpf (Few); WBC Urine >75 /hpf (0-3)
[2019-10-16 19:14] LABS: Acetaminophen 4 ug/mL (10-30); Alanine Aminotransferase 14 U/L (16-63); Albumin Level 1.6 g/dL (3.4-5.0); Alkaline Phosphatase 140 U/L (46-116); Anion Gap 13 mmol/L (8-16); Aspartate Amino Transferase 37 U/L (15-37); Bilirubin,Total 0.3 mg/dL (0.00-1.00); Blood Urea Nitrogen 6 mg/dL (7-18); Calcium 6.7 mg/dL (8.5-10.1); Carbon Dioxide 24 mmol/L (21-32); Chloride 103 mmol/L (98-108); Estimated CRCL calculation 85 ml/min; Estimated Glomerular Filt Rate > 60; Glucose 119 mg/dL (70-99); Osmolality Calculated 288 mOsm/kg (285-295); Potassium 3.2 mmol/L (3.5-5.1); Salicylate 4.1 mg/dL (2.8-20.0); Sodium 140 mmol/L (136-145); Total Protein 4.8 g/dL (6.4-8.2)
[2019-10-16 19:15] LABS: Lactic Acid 7.1 mmol/L (0.4-2.0)
[2019-10-16 19:16] LABS: Ethanol 263 mg/dL (0-6); Troponin I < 0.02 ng/mL (0.00-0.056)
[2019-10-16 19:16] LABS: Ammonia 23 umol/L (11-32); Lipase 17 U/L (73-393)
[2019-10-16 19:19] LABS: Amphetamine Screen Urine Negative (Negative); Barbiturate Screen Urine Negative (Negative); Benzodiazepines Screen Urine Positive (Negative); Cannabinoid Screen Urine Negative (Negative); Cocaine Screen Urine Negative (Negative); Methadone Screen Urine Negative (Negative); Opiate Screen Urine Negative (Negative); Phencyclidine Screen Urine Negative (Negative)
[2019-10-16 19:58] VITALS: BP 102/61; PULSE 91; RESP 14; O2SAT 100
[2019-10-16] MEDS: NITROFURANTOIN MONOHYD MACROCR 100 MG CAP PO ×2 (20:15→21:03)
--- NOTE | 2019-10-16 20:32 | PC.NURSE ---
Patient arrived from ER on stretcher. Able to move to bed independently. Suicide precautions explained. TV turned on. Fluids and warm blanket provided. Patient in view of sitter and nurse.
[2019-10-16 20:35] VITALS: BMI 29.7
[2019-10-16 20:40] VITALS: BP 122/66; PULSE 92; RESP 13; TEMP 36.4; O2SAT 98
[2019-10-16] MEDS: traZODone HCL 50 MG TABLET 100 MG PO (21:03)
[2019-10-16] MEDS: FLUTICASONE PROPIONATE 0.05% NA SPR 16 GM BTL (*BKC) 2 SPRAY NASAL (21:03)
[2019-10-16 21:14] LABS: Glucose Point of Care 110 (65-105)
--- NOTE | 2019-10-16 21:37 | PC.NURSE ---
Patient resting watching television. PRN trazadone given per request. Voided 100 mls of dark yellow urine.
[2019-10-16] MEDS: chlordiazePOXIDE 10 MG CAPSULE PO (23:27)
[2019-10-16 23:34] VITALS: BP 122/70; PULSE 90; RESP 16; TEMP 37.5; O2SAT 99
--- NOTE | 2019-10-16 23:35 | PC.NURSE ---
Alert, cooperative. Watching TV. No voiced ideas of doing harm to self or others. Room near nursing station.
[2019-10-17 00:19] LABS: Troponin I 0.02 ng/mL (0.00-0.056)
--- NOTE | 2019-10-17 00:36 | PC.NURSE ---
Watching TV. Remains alert, pleasant. No signs of distress noted. No voiced ideas of harming self or others .
--- NOTE | 2019-10-17 01:26 | PC.NURSE ---
Sleeping, resp even. No signs of distress noted.
--- NOTE | 2019-10-17 02:14 | PC.NURSE ---
Voided sm amt in urinal @ bedside. Passed much flatus. No BM. Remains alert, cooperative. No voiced ideas of harming self or others so far this shift.
--- NOTE | 2019-10-17 03:32 | PC.NURSE ---
Sleeping, resp even. No signs of distress noted.
[2019-10-17 05:22] VITALS: BP 153/88; PULSE 102; RESP 16; TEMP 36.9; O2SAT 98
[2019-10-17 05:42] LABS: Basophils Absolute Auto 0.01 K/mm3 (0.00-0.10); Basophils Percent Auto 0.2 % (0.0-1.0); Eosinophils Absolute Auto 0.01 K/mm3 (0.02-0.50); Eosinophils Percent Auto 0.2 % (1.0-6.0); Hematocrit 25.4 % (40.0-54.0); Hemoglobin 8.5 g/dL (14.0-18.0); Immature Granulocyte Absolute 0.04 K/mm3 (0.00-0.00); Immature Granulocyte Percent A 0.7 % (0.0-0.0); Lymphocytes Absolute Auto 1.31 K/mm3 (1.10-4.50); Lymphocytes Percent Auto 22.9 % (18.0-42.0); Mean Corpuscular HGB Conc 33.5 g/dL (32.0-36.0); Mean Corpuscular Hemoglobin 35.6 pg (27.0-31.0); Mean Corpuscular Volume 106.3 fL (78.0-102.0); Mean Platelet Volume 9.5 fl (8.7-11.0); Monocytes Absolute Auto 0.36 K/mm3 (0.10-0.90); Monocytes Percent Auto 6.3 % (2.0-11.0); Neutrophils Percent Auto 69.7 % (50.0-70.0); Platelet Count Result 108 K/mm3 (150-420); Red Blood Count 2.39 M/mm3 (4.70-6.10); Red Cell Distribution Width 17.7 % (11.6-14.4); White Blood Count 5.7 K/mm3 (4.8-10.8)
--- NOTE | 2019-10-17 05:47 | PC.NURSE ---
Pt stated was taken off of thyroid medicine by Dr. Murray.
[2019-10-17 06:13] LABS: Alanine Aminotransferase 14 U/L (16-63); Albumin Level 1.7 g/dL (3.4-5.0); Alkaline Phosphatase 133 U/L (46-116); Anion Gap 12 mmol/L (8-16); Aspartate Amino Transferase 32 U/L (15-37); Bilirubin,Total 0.5 mg/dL (0.00-1.00); Blood Urea Nitrogen 10 mg/dL (7-18); Calcium 6.6 mg/dL (8.5-10.1); Carbon Dioxide 25 mmol/L (21-32); Chloride 102 mmol/L (98-108); Estimated CRCL calculation 85 ml/min; Estimated Glomerular Filt Rate > 60; Ethanol 26 mg/dL (0-6); Glucose 92 mg/dL (70-99); Osmolality Calculated 287 mOsm/kg (285-295); Potassium 3.2 mmol/L (3.5-5.1); Sodium 139 mmol/L (136-145); Total Protein 4.6 g/dL (6.4-8.2); Troponin I < 0.02 ng/mL (0.00-0.056)
[2019-10-17 06:16] LABS: Occult Blood Positive (Negative)
--- NOTE | 2019-10-17 06:22 | PC.NURSE ---
Call out to Michel Walsh/ [facility] at 26.
--- NOTE | 2019-10-17 06:26 | PC.NURSE ---
Mahesh from [facility] returned call. Will be out to see patient-probably about 0830.
--- NOTE | 2019-10-17 06:28 | PC.NURSE ---
Pt expelled moderate amt of pasty black stool.
--- NOTE | 2019-10-17 06:31 | PC.NURSE ---
Doctor notified of lab results. Order received to stop Eliquis
--- NOTE | 2019-10-17 06:54 | PC.NURSE ---
No voiced ideas of harming self or others this shift.
--- NOTE | 2019-10-17 07:22 | PM.IMHP ---
H&P: HPI History of Present Illness Date/Time: 10/17/19 07:22 <Pooja Bullard, PEDIATRIC CRITICAL CARE NURSE - Last Filed: 10/17/19 10:44> Chief complaint: AMB <Pooja Bullard, PEDIATRIC CRITICAL CARE NURSE - Last Filed: 10/17/19 10:44> Narrative: Calixto Lyons is a 59 year old male Admitted yesterday through the ER via ambulance. The patient stated that he was having multiple diarrhea episodes, and at one point became incontinent of his multiple stools and could no longer clean himself up due to his weakness, so that when he called the ambulance. He stated to EMS that he thought about using a knife from his kitchen. In the ER he was found to be suicidal. He was admitted for observation, alcohol abuse, suicidall ideation, altered mental status, and suicide watch. According to the ED provider notes: Patient states this last year through weeks has been feeling depressed because of his situation. He states that he is still going to the bar and was there as recent as 2 days ago where he is drinking nonalcoholic beer. He states that today he had 8 travel size bottles of Fireball and denies taking any other medications in order to harm self. He states that he has felt suicidal in the last day or so and looked at knife in his kitchen but after he thought about it, he felt bad for his children. His ammonia level was WNL at 23. Calixto has a known history of alcoholic cirrhosis with ascites, multiple ER visits, chronic DVTs (on Eliquis, was noncompliant with coumadin) and hospitalizations. He was on lasix 80mg at one point that was decreased to 20mg daily in the past. At this admission, he reported to me that he was taking 20mg lasix daily. His creatinine/renal function appears intact at this admission per labwork; yet his urine output is significantly low and dark paco in color. UA completed with 3+ bacteria, WBC>75, Leuk 2+, 3-5 RBCs, Nitrate neg. Urine culture pending and started on Macrobid due to most recent September UTI/urine cx without sensitive antibiotic treatment received. Will need restarted on Lasix once his tachycardia and GI bleed is better controlled. Noted EKG changes on EKG at admission when compared to past EKGs. Repeat EKG after electrolyte replenishment completed. His albumin is 1.6 and his BNP is 49 today, typically >100 at past admissions; yet he has 3+ pitting edema to all four extremities. Ordered 500ml albumin, YONY hose applied, and IV 1 L banana bag. Lactic acid was 7.1 at admission, 6.0 this morning. Alk phos improving from 140 to 133. He admitted to mt again this morning that he was significantly depressed, and has never been on antidepressants or medication for depression in the past. Calixto says he currently has no plans for suicide this morning. He states that he does not have any ideas or visions about how he might commit suicide at this time. He may need psych evaluation prior to discharge to home, but he is currently in a hospital room near and visiable to the nurses station, not requiring suicide watch or a sitter. He states that he feels that he is still depressed and is agreeable to starting antidepressant medications orally prior to his discharge from [facility]. I have encouraged him to further discuss that with his hospitalist at [facility]. His hemoglobin did drop from his admission hemoglobin of 9.1 down to 8.5 this morning with labs. Despite not getting any fluids. His stool occult + and he is having lower abdominal tenderness and cramping with urgency of stools and urine. He has had 3-4 black tarry liquid stools within the last 2 hours this morning. Patient states that he has a history of taking hydrocodone, has been taking Imodium at home regularly to try and stop these liquid stools at home, and reports having a colonoscopy many years ago. He has not been seen a GI or liver specialist in recent months. His vitamin D level was significantly low in recent months, restarted on Vitamin D at this time. Will need Vitamin D level checked prior to discharg
[2019-10-17 07:43] VITALS: BP 155/93; PULSE 115
[2019-10-17 07:44] LABS: Glucose Point of Care 91 (65-105)
[2019-10-17 07:47] VITALS: BP 155/93; PULSE 115; RESP 16; TEMP 36.9; O2SAT 97
[2019-10-17 07:57] VITALS: BP 136/82; BP 167/97; PULSE 124; PULSE 136
[2019-10-17 07:57] LABS: INR 1.3; Magnesium 1.4 mg/dL (1.8-2.4); Phosphorus 2.3 mg/dL (2.6-4.7); Prothrombin Time 13.1 Seconds (9.64-11.0)
[2019-10-17] MEDS: ALBUMIN HUMAN 5% 25 GM/500 ML BTL IV CONT (07:59)
[2019-10-17 08:00] VITALS: PULSE 115
[2019-10-17] MEDS: METOPROLOL TARTRATE 25 MG TABLET PO (08:00)
[2019-10-17] MEDS: NITROFURANTOIN MONOHYD MACROCR 100 MG CAP PO (08:00)
[2019-10-17] MEDS: chlordiazePOXIDE 10 MG CAPSULE PO (08:00)
[2019-10-17] MEDS: MAGNESIUM OXIDE 400 MG TABLET PO (08:00)
[2019-10-17] MEDS: calcitrioL 0.25 MCG CAPSULE 0.5 MCG PO (08:00)
[2019-10-17] MEDS: POTASSIUM CHLORIDE 20 MEQ PACKET (FOR LIQUID) 40 MEQ PO (08:00)
[2019-10-17] MEDS: TAMSULOSIN HCL 0.4 MG CAPSULE 0.8 MG PO (08:00)
[2019-10-17] MEDS: FERROUS SULFATE 324 MG TABLET PO (08:01)
[2019-10-17] MEDS: ATORVASTATIN 10 MG TABLET PO (08:01)
[2019-10-17 08:15] LABS: BNP 49.4 pg/mL (0-100)
--- NOTE | 2019-10-17 09:26 | P.PNCROSS_ITS ---
Event Note Event Note Event Note: Reviewed labs, note and patient with Ilana Conklin NP. He has had 400 ml of liquid, foul smelling melena over the past 2 hours. He has no c.p. or SOB. He his lightheaded with standing. He has chronic abdominal pain attributed to hernia which has not changed. Currently denies suicidal intent. Last dose Eliquis about 24 hours ago. He has received 1 liter of crystalloid and is getting albumin. Pt. is alert, oriented to place, person, thinks it's late September. 98.4, 16 - 115 (on metoprolol) NAD Pul: FCBS Abdomen: tender over epigastric surgical scar. No rebound or guarding. Assessment/plan: Active GI bleed. Hgb 8.5 4 hours ago. Arrangements for transfer to [place] have been made. Awaiting bed assignment. Will give IV fluids, continue albumin, prepare to transfuse blood if pt. has not been transferred by the time it is ready. Suicidal intent on admission, now resolved. Dr. Salinas is aware of situation Pt. considered not coagulated after 5 half lives of Eliquis, each 1/2 life of 5 - 15 hours. Pt. is still anticoagulated.
[2019-10-17] MEDS: CHOLECALCIFEROL 1,000 UNIT TABLET 5000 UNITS PO (09:27)
[2019-10-17] MEDS: chlordiazePOXIDE 25 MG CAPSULE PO (09:27)
[2019-10-17] MEDS: FUROSEMIDE 40 MG TABLET PO (10:09)
[2019-10-17 10:14] LABS: Lactic Acid 6.7 mmol/L (0.4-2.0)
--- NOTE | 2019-10-17 10:16 | PC.NURSE ---
Report called to Yana at [facility]
--- NOTE | 2019-10-17 10:29 | PC.NURSE ---
Pantoprazole 40mg given IVP 1015
--- NOTE | 2019-10-17 10:45 | PM.DS ---
DS: Discharge Diagnosis Discharge Diagnosis (1) Suicidal ideation: Code(s): R45.851 - Suicidal ideations <Pooja Bullard NP - Last Filed: 10/17/19 10:50> Status: Acute <Pooja Bullard NP - Last Filed: 10/17/19 10:50> Assessment and Plan: yesterday, on October 15, stated to EMS that he thought about using a knife from his kitchen. In the ER he was found to be suicidal. He was admitted for observation, alcohol abuse, suicidall ideation, altered mental status, and suicide watch. According to the ED provider notes: Patient states this last year through weeks has been feeling depressed because of his situation. He states that he is still going to the bar and was there as recent as 2 days ago where he is drinking nonalcoholic beer. He states that today he had 8 travel size bottles of Fireball and denies taking any other medications in order to harm self. He states that he has felt suicidal in the last day or so and looked at knife in his kitchen but after he thought about it, he felt bad for his children. admitted to me again this morning that he was significantly depressed, and has never been on antidepressants or medication for depression in the past. Calixto says he currently has no plans for suicide this morning. He states that he does not have any ideas or visions about how he might commit suicide at this time. He may need psych evaluation prior to discharge to home, but he is currently in a hospital room near and visiable to the nurses station, not requiring suicide watch or a sitter. He states that he feels that he is still depressed and is agreeable to starting antidepressant medications orally prior to his discharge from [facility]. encouraged him to further discuss that with his hospitalist at [place]. he needs to be medically cleared first (GI bleed assessed/treated) before he is elligible for Psych or Mental health Facility inpatient treatment, if still needed at that time. Requesting transfer to [facility] for GI Bleed, patient agreeable and ED Dr. Morgan agreeable. Hospitalist Dr. Kota Salinas has accepted the patient for transfer to [facility]. <Pooja Bullard NP - Last Filed: 10/17/19 10:50> (2) Acute UTI: Code(s): N39.0 - Urinary tract infection, site not specified <Pooja Bullard NP - Last Filed: 10/17/19 10:50> Status: Acute <Pooja Bullard NP - Last Filed: 10/17/19 10:50> Assessment and Plan: UA completed with 3+ bacteria, WBC>75, Leuk 2+, 3-5 RBCs, Nitrate neg. dehydrated intravascularly as well WBC 5.7 , no fevers, chills present, weakness present, UA His creatinine/renal function appears intact at this admission per labwork urine output is significantly low and dark paco in color. Urine culture pending and started on Macrobid due to most recent September UTI/urine cx without sensitive antibiotic treatment received. Ordered 500ml albumin, and IV 1 L banana bag. Lactic acid was 7.1 at admission, 6.0 this morning. Repeating lactic level. Alk phos improving from 140 to 133. continue and finish out a full 5 day course of Macrobid to adequately treat most recent UTI. Requesting transfer to [facility] for GI Bleed, patient agreeable and ED Dr. Morgan agreeable. Hospitalist Dr. Kota Salinas has accepted the patient for transfer to [facility]. <Pooja Bullard NP - Last Filed: 10/17/19 10:50> (3) Acute hypokalemia: Code(s): E87.6 - Hypokalemia <Pooja Bullard NP - Last Filed: 10/17/19 10:50> Status: Acute <Pooja Bullard NP - Last Filed: 10/17/19 10:50> Assessment and Plan: likely due to his alcoholism, very poor appetite at home, lack of eating, and dehydration Replenished his 3.2 potassium with 40meq KCL orally x 2 doses to be given today. Continuous cardiac telemetry monitoring EKG completed and reviewed, recommend another EKG after electrolytes replenished today fall risk a
== END 2019-10-17 10:30 | disposition short-term general hospital (02) ==
LOC: CHSED 18:03 → CHS2ND 19:44
PROVIDERS: Nurse Practitioner; Admitting Provider Emergency Medicine; Emergency Provider Emergency Medicine; PCP Internal Medicine; Visit Provider Family Medicine
DX: R45.851 Suicidal ideations (principal); K92.2 Gastrointestinal hemorrhage, unspecified; E87.6 Hypokalemia; N39.0 Urinary tract infection, site not specified; R19.7 Diarrhea, unspecified; K70.31 Alcoholic cirrhosis of liver with ascites; I82.512 Chronic embolism and thrombosis of left femoral vein; I82.702 Chronic embolism and thrombosis of unspecified veins of left upper extremity; D64.9 Anemia, unspecified; I25.2 Old myocardial infarction; G62.9 Polyneuropathy, unspecified; F10.10 Alcohol abuse, uncomplicated; F32.9 Major depressive disorder, single episode, unspecified; F17.210 Nicotine dependence, cigarettes, uncomplicated; Z79.01 Long term (current) use of anticoagulants
CPT/HCPCS: 36415; 80053; 80307; 81001; 82140; 82272; 82948; 83605; 83690; 83735; 83880; 84100; 84484; 85025; 85027; 85610; 87040; 87086; 87088; 93005; 96365; 96366; 99284; 99285; A9270; C9113; G0378; P9045

== ENCOUNTER 2019-10-17 11:00 | Inpatient (IN) | payer MEDICARE, MEDICAID, SELFPAY ==
--- NOTE | ~2019-10-17 | US_ITS ---
EXAMINATION: US venous doppler UE DATE: 10/18/2019 12:29 INDICATION: Upper limb swelling TECHNIQUE: Grayscale images without and with compression and Doppler images of the bilateral upper ex tremity veins were obtained. COMPARISON: 05/18/2019 FINDINGS: The right internal jugular vein, subclavian vein, axillary vein, brachial vein, basilic vein, radial vein, and ulnar vein are patent. Unchanged chronic noncompressible thrombus in the right cephalic vei n from the wrist to the antecubital fossa. Chronic nonocclusive thrombus in the partially compressible left internal jugular vein. The left subc lavian vein, axillary vein, brachial vein, basilic vein, radial vein, and ulnar vein are patent. Unch anged chronic noncompressible thrombus in the left cephalic vein at and just above the antecubital fo ssa. IMPRESSION: 1. No interval change in chronic nonocclusive deep venous thrombosis in the left internal jugular vei n and occlusive superficial venous thrombosis at the bilateral cephalic veins.. Reviewed, dictated and finalized at location A. IMPRESSION: 1. No interval change in chronic nonocclusive deep venous thrombosis in the lef t internal jugular vein and occlusive superficial venous thrombosis at the bila teral cephalic veins..
--- NOTE | ~2019-10-17 | US_ITS ---
EXAMINATION: US venous doppler LE DATE: 10/18/2019 12:28 INDICATION: Lower limb swelling TECHNIQUE: Grayscale ultrasound images without and with compression and Doppler ultrasound images of the bilateral lower extremity veins were obtained. COMPARISON: 05/18/2019 FINDINGS: The visualized portions of right common femoral vein, profunda (deep) femoral vein, femoral vein, pop liteal vein, posterior tibial veins, peroneal veins, gastrocnemius vein and greater saphenous vein ou tflow are patent. No interval change in chronic noncompressible and occlusive appearing thrombus in the proximal to mid left femoral vein. Nonocclusive thrombus is seen in the partially compressible distal left femoral v ein. The visualized portions of left common femoral vein, profunda femoral vein, popliteal vein, post erior tibial veins, peroneal veins, gastrocnemius vein and greater saphenous vein outflow are patent. IMPRESSION: 1. Unchanged chronic occlusive deep venous thrombosis in the proximal to mid left femoral vein. 2. No deep venous spondylosis in the right lower limb. Reviewed, dictated and finalized at location A. IMPRESSION: 1. Unchanged chronic occlusive deep venous thrombosis in the proximal to mid le ft femoral vein. 2. No deep venous spondylosis in the right lower limb.
--- NOTE | ~2019-10-17 | CT_ITS ---
EXAMINATION:CT chest w con DATE: 10/20/2019 10:16 INDICATION: Esophageal mass. TECHNIQUE: Computed tomography (CT) of the chest was performed with 75 mL Omnipaque 350 intravenous c ontrast. Automated exposure control and iterative reconstruction technique were employed. The dose-le ngth product (DLP) was 328.47 mGy-cm. COMPARISON: Chest CT 06/25/2018 FINDINGS: There are small pleural effusions. There is mild atelectasis bilaterally with a dependent p redominance. There is a chronic 5 mm nodule at the right major fissure, likely benign. There is a 13 mm nodule in left thyroid lobe, likely not clinically significant. There are changes of right hemithy roidectomy. The heart size is normal. There are coronary artery calcifications. No pericardial effusi on. There is no pulmonary embolus. There is a small sliding hiatal hernia. There is wall thickening o f the esophagus centered 2 cm proximal to the level of the wade. There are no pathologically enlarg ed lymph nodes. There is severe osteoarthritis of right glenohumeral joint. There is chronic height l oss of multiple thoracic vertebral bodies. IMPRESSION: 1. Wall thickening of the mid esophagus, consistent with primary malignancy. 2. Small pleural effusions. Reviewed, dictated and finalized at location B.
[2019-10-17 12:42] VITALS: BP 153/97; PULSE 96; RESP 24; TEMP 36.4; O2SAT 100
[2019-10-17 12:43] VITALS: PULSE 96; O2SAT 100
--- NOTE | 2019-10-17 12:46 | ADMGEN ---
This patient, Calixto Lyons, was admitted to Intensive Care Unit-12 as a M/S patient. Patient/family oriented to hospital policies and general routines including ID bracelet, bed and alarms, visiting hours, pain management, procedures, bathroom and other care routines, personal items, smoking policy, room service/diet, and visiting hours. Valuables list has been completed. Information on how to activate the Rapid Response Team has been discussed. Patient/Family are encouraged to report perceived risks to care and to ask questions if they do not understand what they are told or what they should do.
[2019-10-17 12:49] VITALS: BMI 28.5
--- NOTE | 2019-10-17 13:30 | PM.IMHP ---
H&P: HPI History of Present Illness Date/Time: 10/17/19 13:30 Chief complaint: Hemoccult postive stools and suicidal ideation. Narrative: Calixto Lyons is a 59-year-old male with a history of alcohol abuse, peripheral neuropathy presumably secondary to alcoholism, history of deep vein thrombosis on Eliquis, chronic anemia, benign prostatic hyperplasia, remote history of perforated peptic ulcer, thyroid cancer status post partial thyroidectomy, and history of type 2 non STEMI in August 2016 who is being directly admitted to the hospitalist service at [facility] from the medical floor at [facility] [place], [place] for further evaluation of Hemoccult-positive stools and suicidal ideation. he has frequent loose stools, increasing over the past several days. Yesterday evening he called 911 due to profound weakness after he fell onto the toilet when trying to get to the bathroom, because he was too weak to pull down his pants. He also mentioned to the emergency department physician that has been more depressed recently, and even contemplated using a knife to harm himself however did not go through with that as he did not want to upset his children. Ultimately he was admitted to the medical floor at [place] for treatment of a suspected urinary tract infection, however he has no symptoms of such, hypokalemia, and for further observation given suicidal ideation. It was after he was admitted to the floor that he was found to have dark stools, which were Hemoccult-positive. His stools are frequently dark brown/black, which he attributes to iron supplementation, and he has not noticed a significant change in color. As mentioned, he has a remote history of peptic ulcer disease yet he has no complaints of epigastric pain, reflux, or GERD symptoms. He has chronic abdominal pain due to multiple hernia repairs, and that is unchanged. He has not had fever, chills, or sweats. No nausea or vomiting, however he mentions that his appetite is not great and it sounds as though he will eat food delivered to him for through [employer] once a day and occasionally he will go out for food. At the time my evaluation his biggest complaint is of anxiety and tremors, likely due to alcohol withdrawal. He is not very forthcoming as to how much alcohol he actually consumes, or for how long he has had problems with alcohol, but does admit that he frequently goes to the local bar with his buddies however he tells me he drinks non alcoholic beer most of the time but will on occasion have a shot of Joaquim Savage. He suffers from peripheral neuropathy that has been attributed to his history of alcoholism, and alcohol seems to help with his pain. The pain is been has been especially bad over the past week and a half and he admits to drinking alcohol for the past week because of the pain. Yesterday he reportedly drank 8 aiplane shots of fireball. I think he likely drinks more than he lets on, as he did have alcohol in his system when admitted to the outside hospital yesterday, and is already showing signs of withdrawal, with sweats, tremors, and tachycardia. He is adamant that he is not suicidal and is upset that he is not being allowed to use his cell phone: That is just making me more depressed. No fever, chills, sweats, headache, cold or flu symptoms, cough, shortness of breath, or sick contacts. He denies dysuria, hematuria, urgency, and hesitancy. Review of Systems Review of Systems: Narrative: Twelve systems were reviewed with pertinent positives and negatives as per HPI. No headache. No sinus congestion, rhinorrhea, otalgia, or odynophagia. He denies chest pain and palpitations. No cough or shortness of breath. He denies orthopnea and PND. He has chronic edema in his lower extremities and on occasion in his upper extremities. He has not noticed a change in this recently. He states compliance with his Eliquis, and is on that as he was not very compliant with his warfarin. He has
[2019-10-17 16:48] LABS: Basophils Percent Auto 0.2 % (0.2-1.2); Hematocrit 24.1 % (42.0-52.0); Hemoglobin 8.2 g/dL (14.0-18.0); Immature Granulocyte Absolute 0.03 K/mm3 (0.00-0.031); Immature Granulocyte Percent A 0.6 % (0-0.5); Immature Reticulocyte Fraction 19.2 % (3.0-15.9); Lymphocytes Absolute Auto 0.98 K/mm3 (0.9-3.2); Mean Corpuscular Hemoglobin 35.5 pg (26-34); Mean Corpuscular Volume 104.3 fl (80-100); Mean Platelet Volume 10.3 fl (7.4-10.4); Monocytes Absolute Auto 0.4 K/mm3 (0.1-0.6); Neutrophils Absolute Auto 4.1 K/mm3 (1.3-6.7); Neutrophils Percent Auto 74.2 % (45.5-73.1); Platelet Count Result 117 k/mm3 (150-375); Red Blood Count 2.31 M/mm3 (4.6-6.20); Red Cell Distribution Width 18.1 % (11.5-14.5); Reticulocyte Hemoglobin Conten 45.8 pg (28.2-35.7); Reticulocyte Percent 3.35 % (0.7-4.3); Reticulocytes Absolute 0.08 B/L (32.2-175.7); White Blood Count 5.5 K/mm3 (4.5-10.0)
[2019-10-17 16:53] LABS: INR 1.5; Partial Thromboplastin Time 33.2 SECONDS (22.3-36.8); Prothrombin Time 17.9 Seconds (11.1-14.7)
[2019-10-17 17:03] LABS: Hemoglobin A1C 4.8 % (<5.7)
[2019-10-17 17:09] LABS: Transferrin 98 mg/dL (206-381)
--- NOTE | 2019-10-17 17:36 | PC.NURSE ---
Crisis came out and talked with patient. They do not believe he is suicidal but gave him resources but feels he does not need to be on any precautions. Christian Scherer notified and patient was cleared to go to the floor.
[2019-10-17 17:40] LABS: Iron 100 ug/dL (49-181)
[2019-10-17] MEDS: chlordiazePOXIDE 25 MG CAPSULE PO ×2 (17:46→21:25)
[2019-10-17] MEDS: THIAMINE HCL 200 MG/2 ML VIAL 100 MG IV PUSH (17:46)
[2019-10-17 17:49] LABS: Glucose Point of Care 114 (65-105)
[2019-10-17 17:50] LABS: Percent Iron Saturation 59 % (20-50)
--- NOTE | 2019-10-17 18:04 | PC.NURSE ---
Patient transferred to [facility] with belongings via wheelchair. Report called to 3rd m/s. Medications sent with patient.
[2019-10-17 18:08] LABS: Albumin Level 2.2 g/dL (3.5-5.1); Alkaline Phosphatase 116 U/L (38-126); Anion Gap 4 mmol/L (8-16); Aspartate Amino Transferase 34 U/L (17-59); Bilirubin,Total 0.9 mg/dL (0.2-1.3); Blood Urea Nitrogen 11 mg/dL (9-20); CRP < 0.5 mg/dL (<1.0); Calcium 6.7 mg/dL (8.4-10.2); Carbon Dioxide 30 mmol/L (22-30); Chloride 98 mmol/L (98-107); Estimated CRCL calculation 98 ml/min; Estimated Glomerular Filt Rate > 60; Glucose 107 mg/dL (75-110); Magnesium 1.5 mg/dL (1.6-2.3); Phosphorus 2.5 mg/dL (2.5-4.5); Potassium 3.4 mmol/L (3.4-5.0); Sodium 132 mmol/L (137-145)
[2019-10-17 18:09] LABS: Folic Acid 4.1 ng/mL (2.76->20)
--- NOTE | 2019-10-17 18:25 | PC.NURSE ---
This patient, Calixto Lyons, was received from [ICU] on 10/17/19 at 1825. Personal belongings list checked and signed. Patient/family oriented to unit policies and routines
[2019-10-17 19:22] LABS: Alanine Aminotransferase 19 U/L (4-50)
[2019-10-17 22:00] VITALS: BP 157/79; PULSE 99; RESP 20; TEMP 36.9; O2SAT 97
[2019-10-17 22:07] LABS: Glucose Point of Care 114 (65-105)
[2019-10-17 23:31] LABS: Hemoglobin 7.4 g/dL (14.0-18.0)
[2019-10-17 23:38] LABS: Hematocrit 20.7 % (42.0-52.0)
[2019-10-18] VITALS (9 sets, daily range): BP systolic 124–144; BP diastolic 66–68; PULSE 60–96; RESP 18–20; TEMP 36.3–36.8; O2SAT 96–100
[2019-10-18] MEDS: PANTOPRAZOLE SODIUM IV 40 MG VIAL IV PUSH ×3 (00:08→21:34)
[2019-10-18] MEDS: MAGNESIUM SULF 2 GM/WATER 50ML 2 GM/50 ML BAG IVPB (00:09)
[2019-10-18] MEDS: CYANOCOBALAMIN INJ 1,000 MCG/ML VIAL 1000 MCG IM (00:09)
[2019-10-18] MEDS: FLUTICASONE PROPIONATE 0.05% NA SPR 16 GM BTL (*BKC) 2 SPRAY NASAL ×2 (00:10→21:34)
[2019-10-18] MEDS: METOPROLOL TARTRATE 25 MG TABLET PO ×3 (00:13→21:34)
[2019-10-18] MEDS: traZODone HCL 50 MG TABLET 100 MG PO ×2 (00:31→22:28)
[2019-10-18 04:13] LABS: Hematocrit 22.2 % (42.0-52.0); Hemoglobin 7.4 g/dL (14.0-18.0); Mean Corpuscular HGB Conc 33.3 g/dl (32-36); Mean Corpuscular Hemoglobin 35.1 pg (26-34); Mean Corpuscular Volume 105.2 fl (80-100); Mean Platelet Volume 9.9 fl (7.4-10.4); Platelet Count Result 109 k/mm3 (150-375); Red Blood Count 2.11 M/mm3 (4.6-6.20); Red Cell Distribution Width 18.5 % (11.5-14.5); White Blood Count 4.2 K/mm3 (4.5-10.0)
[2019-10-18 04:27] LABS: Alanine Aminotransferase 10 U/L (4-50); Albumin Level 2.1 g/dL (3.5-5.1); Alkaline Phosphatase 104 U/L (38-126); Anion Gap 2 mmol/L (8-16); Aspartate Amino Transferase 26 U/L (17-59); Bilirubin,Total 0.7 mg/dL (0.2-1.3); Blood Urea Nitrogen 11 mg/dL (9-20); Calcium 6.6 mg/dL (8.4-10.2); Carbon Dioxide 33 mmol/L (22-30); Chloride 98 mmol/L (98-107); Estimated CRCL calculation 113 ml/min; Estimated Glomerular Filt Rate > 60; Glucose 88 mg/dL (75-110); Magnesium 2.2 mg/dL (1.6-2.3); Phosphorus 2.3 mg/dL (2.5-4.5); Potassium 3.2 mmol/L (3.4-5.0); Sodium 133 mmol/L (137-145)
[2019-10-18] MEDS: LEVOTHYROXINE SODIUM 25 MCG TABLET PO (05:53)
[2019-10-18] MEDS: chlordiazePOXIDE 25 MG CAPSULE PO ×3 (05:53→21:35)
--- NOTE | 2019-10-18 08:31 | WPDGICN ---
Assessment and Plan Assessment and plan (1) Chronic anemia: Code(s): D64.9 - Anemia, unspecified Status: Acute Assessment and Plan: Patient's hemoglobin appears to be close to baseline. However he is anemic. Plan is to check folate B12 and iron studies. Because of occult blood in stool in EGD and colonoscopy will be planned. (2) Occult blood in stools: Code(s): R19.5 - Other fecal abnormalities Status: Acute (3) Current use of half-way anticoagulation: Code(s): Z79.01 - alf (current) use of anticoagulants Status: Acute Assessment and Plan: Patient anticoagulated because a history of DVT. Because of anemia GI endoscopy will be planned to determine safety of continued anticoagulation. (4) Alcohol abuse: Code(s): F10.10 - Alcohol abuse, uncomplicated Status: Acute Assessment and Plan: Patient will need a consider alcohol rehab in abstain from alcohol if possible. GI Consult Note Consult date/time: 10/18/19 08:31 HPI: Calixto Lyons is a 59 year old male Seen in evaluation at the request of the hospitalist service. The patient has a long history of alcohol abuse has a history of chronic anemia for which she is on iron replacement. He has been on Eliquis because of a DVT. Yesterday he had a fall in presented to [facility]. Because of black stools and anemia he was transferred to [facility]. Patient states that stools have been black for 6 minths since starting on iron. Patient denies any abdominal pain. He states that is been many years since previous colonoscopy was performed for bleeding. Patient reports drinking alcoholic beverages typically beer for on routine basis but recently has been drinking whiskey. Upon presentation to [facility] was identified as having occult positive dark stools. Review of Systems Review of Systems: All systems reviewed & are unremarkable except as noted in HPI and below PMFSH Past Medical History Medical History (Updated 10/18/19 @ 08:36 by Eliel Cerraot MD) Alcohol abuse Anxiety Benign prostatic hyperplasia Chronic anemia Compression fracture Including thoracic and lumbar compression fractures. 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 Deep venous thrombosis Left femoral vein, left internal jugular, and let axillary veins noted on ultrasound in May 2019. Hepatic steatosis Hypertension Kidney stones Major depression Nicotine use disorder Peptic ulcer disease Remote history of perforated peptic ulcer status post partial gastrectomy. Peripheral neuropathy Substance abuse Thyroid cancer Status post partial thyroidectomy. Previously on levothyroxine. Type 2 RI (myocardial infarction) (~08/2016) No ischemic cardiac evaluation was undertaken. Surgical History Surgical History (Updated 10/17/19 @ 15:55 by Judy Scherer PA-C) History of cholecystectomy History of hernia repair Multiple ventral hernia repairs including incisional hernia repair, some with mesh. History of partial gastrectomy For perforated peptic ulcer. History of partial thyroidectomy For thyroid cancer. Family History Family History Father Cancer Mother Dementia Social History Social History (Updated 10/17/19 @ 15:58 by Judy Scherer PA-C) Social History: Surrogate decision maker: Shannan Lyons, daughter. Code status: Full code. Smoking packs per day: 0.5 Smoking cigarettes per day: 10.0 Years smoked: 40 Smoking pack-years: 20.00 Smoking status: Current every day smoker Tobacco type: cigarettes Second hand tobacco smoke exposure: Yes Additional smoking assessment comments: Typically smokes between 2 and 6 cigarettes a day. Alcohol use details: Patient is not very forthcoming with his alcohol consumption, it sounds like he has had inte
[2019-10-18] MEDS: TAMSULOSIN HCL 0.4 MG CAPSULE 0.8 MG PO (10:24)
[2019-10-18] MEDS: calcitrioL 0.25 MCG CAPSULE 0.5 MCG PO (10:24)
[2019-10-18] MEDS: CHOLECALCIFEROL 1,000 UNIT TABLET 5000 UNITS PO (10:24)
[2019-10-18] MEDS: POTASSIUM CHLORIDE 20 MEQ TABLET.ER PO (10:25)
[2019-10-18] MEDS: FERROUS SULFATE 324 MG TABLET PO (10:25)
[2019-10-18] MEDS: MAGNESIUM OXIDE 400 MG TABLET PO (10:25)
[2019-10-18] MEDS: ATORVASTATIN 10 MG TABLET PO (10:26)
[2019-10-18 10:42] LABS: Hemoglobin 8.4 g/dL (14.0-18.0)
[2019-10-18 10:47] LABS: Iron 74 ug/dL (49-181)
--- NOTE | 2019-10-18 10:55 | PM.IMPN ---
Progress Note: A&P Assessment and Plan (1) Heme positive stool: Code(s): R19.5 - Other fecal abnormalities Status: Acute Assessment and Plan: He has been having dark stools approximately 6 months. Continue Protonix b.i.d. given remote history of peptic ulcers. Continue to trend hemoglobin and hematocrit. Dr. Cerrato has been consulted and his input is appreciated. plan for EGD and colonoscopy tomorrow. (2) Suicidal ideation: Code(s): R45.851 - Suicidal ideations Status: Acute Assessment and Plan: He was noted to have made a comment about using a knife to harm himself.I do not think the patient is actively suicidal, and he likely said this while he was intoxicated. He tells me this time that he has no thoughts of harming himself, he is glad to be alive, and he denies ever making any comments about harming himself. He was evaluated by crisis and was not found to be at risk. He was given information for counselors to speak with his and he plans to follow-up on this. (3) Major depression: Qualifiers: Major depression recurrence: recurrent Active/Remission status: currently active Major depression episode severity: unspecified Qualified Code(s): F33.9 - Major depressive disorder, recurrent, unspecified Code(s): F32.9 - Major depressive disorder, single episode, unspecified Status: Acute Assessment and Plan: At this time he denies feelings of being down or hopeless. He does tell me that he feels he has been quite depressed lately and that is why he has been drinking more. He thinks he would benefit from an antidepressant medication. He will benefit from SSRI therapy and will plan to initiate medication following EGD and colonoscopy. He plans to establish with a counselor as above. (4) Chronic anemia: Code(s): D64.9 - Anemia, unspecified Status: Acute Assessment and Plan: Macrocytic. Hemoglobin and hematocrit are bit lower than what he typically runs. He is on oral iron therapy. Iron stores are adequate. B12 is mildly low and folate is within normal limits. At this time I am going to repeat iron studies and check B12 and folates. Transfuse if indicated. Will begin p.o. B12 therapy following EGD and colonoscopy. (5) Electrolyte imbalance: Code(s): E87.8 - Other disorders of electrolyte and fluid balance, not elsewhere classified Status: Acute Assessment and Plan: Including hypokalemia, hypophosphatemia, hypocalcemia (8.1 when corrected for albumin), and hypomagnesemia. Electrolytes will be made replete and will be monitored closely. Continue magnesium 400 mg qAM. Continue potassium supplementation. Monitor electrolytes closely (6) Bacteriuria with pyuria: Code(s): R82.71 - Bacteriuria; R82.81 - Pyuria Status: Acute Assessment and Plan: Previously denied symptoms, but today he states that he has burning with urination. Urine culture is pending. Will hold off on antibiotics while awaiting results as there are no additional signs or symptoms to suggest infection. (7) Current use of director long term care anticoagulation: Code(s): Z79.01 - jail (current) use of anticoagulants Status: Acute Assessment and Plan: He is on Eliquis for DVT of the left lower extremity and left upper extremity. Continue to hold Eliquis given Hemoccult-positive stool. May need IVC filter should he continue to have ongoing blood loss. Repeat venous Doppler show unchanged DVT of left upper and lower extremities. (8) Elevated lactic acid level: Code(s): R79.89 - Other specified abnormal findings of blood chemistry Status: Acute Assessment and Plan: Likely secondary to a combination of decreased clearance from liver disease (probable cirrhosis though not noted on imaging) in addition to ketosis from poor nutrition. He is not
[2019-10-18 10:58] LABS: Percent Iron Saturation 42 % (20-50)
[2019-10-18 12:16] LABS: Glucose Point of Care 103 (65-105)
[2019-10-18] MEDS: polyethylene glycoL 3350 238 GM BOTTLE PO (15:25)
[2019-10-18 15:57] LABS: Hematocrit 22.9 % (42.0-52.0); Hemoglobin 7.8 g/dL (14.0-18.0)
[2019-10-18] MEDS: THIAMINE HCL 100 MG TABLET PO (16:26)
[2019-10-18] MEDS: FOLIC ACID 1 MG TABLET PO (16:26)
[2019-10-18 17:01] LABS: Glucose Point of Care 130 (65-105)
[2019-10-18 20:21] LABS: IFOB Positive Control Positive; Immunochemical Fecal Occult Bl Positive (N)
[2019-10-18 22:20] LABS: Glucose Point of Care 126 (65-105)
[2019-10-18 22:29] LABS: Hematocrit 24.5 % (42.0-52.0); Hemoglobin 8.7 g/dL (14.0-18.0)
[2019-10-19] VITALS (11 sets, daily range): BP systolic 92–127; BP diastolic 57–79; PULSE 64–92; RESP 17–21; TEMP 36.2–37.2; O2SAT 90–100
--- NOTE | 2019-10-19 01:06 | PC.NURSE ---
Patient NPO as of midnight. All food and drinks removed from bedside.
[2019-10-19 06:48] LABS: Basophils Percent Auto 0.2 % (0.2-1.2); Eosinophils Absolute Auto 0.1 K/mm3 (0-0.3); Eosinophils Percent Auto 2.8 % (0-4.4); Hematocrit 21.4 % (42.0-52.0); Hemoglobin 7.2 g/dL (14.0-18.0); Immature Granulocyte Absolute 0.03 K/mm3 (0.00-0.031); Immature Granulocyte Percent A 0.7 % (0-0.5); Lymphocytes Absolute Auto 1.52 K/mm3 (0.9-3.2); Lymphocytes Percent Auto 33.3 % (18.3-44.2); Mean Corpuscular HGB Conc 33.6 g/dl (32-36); Mean Corpuscular Hemoglobin 35.6 pg (26-34); Mean Corpuscular Volume 105.9 fl (80-100); Mean Platelet Volume 10.1 fl (7.4-10.4); Monocytes Absolute Auto 0.3 K/mm3 (0.1-0.6); Monocytes Percent Auto 5.9 % (2.6-8.5); Neutrophils Absolute Auto 2.6 K/mm3 (1.3-6.7); Neutrophils Percent Auto 57.1 % (45.5-73.1); Platelet Count Result 127 k/mm3 (150-375); Red Blood Count 2.02 M/mm3 (4.6-6.20); Red Cell Distribution Width 18.6 % (11.5-14.5); White Blood Count 4.6 K/mm3 (4.5-10.0)
[2019-10-19 07:05] LABS: Alanine Aminotransferase 11 U/L (4-50); Albumin Level 2.1 g/dL (3.5-5.1); Alkaline Phosphatase 98 U/L (38-126); Anion Gap 2 mmol/L (8-16); Aspartate Amino Transferase 25 U/L (17-59); Bilirubin,Total 0.6 mg/dL (0.2-1.3); Blood Urea Nitrogen 6 mg/dL (9-20); Calcium 6.9 mg/dL (8.4-10.2); Carbon Dioxide 30 mmol/L (22-30); Chloride 98 mmol/L (98-107); Estimated CRCL calculation 113 ml/min; Estimated Glomerular Filt Rate > 60; Glucose 95 mg/dL (75-110); Potassium 2.9 mmol/L (3.4-5.0); Sodium 130 mmol/L (137-145)
[2019-10-19] MEDS: PANTOPRAZOLE SODIUM IV 40 MG VIAL IV PUSH ×2 (09:00→23:29)
[2019-10-19] MEDS: TAMSULOSIN HCL 0.4 MG CAPSULE 0.8 MG PO (09:18)
[2019-10-19] MEDS: METOPROLOL TARTRATE 25 MG TABLET PO ×2 (09:21→23:28)
[2019-10-19] MEDS: ATORVASTATIN 10 MG TABLET PO (09:21)
--- NOTE | 2019-10-19 11:57 | PM.IMPN ---
Progress Note: A&P Assessment and Plan (1) Mass of esophagus determined by endoscopy: Code(s): K22.8 - Other specified diseases of esophagus Status: Acute Assessment and Plan: EGD today revealed mid esophageal mass that was malignant appearing. Biopsies were taken and will await results chest CT has been ordered for further evaluation oncology consult was placed and recommendations are appreciated. (2) Heme positive stool: Code(s): R19.5 - Other fecal abnormalities Status: Acute Assessment and Plan: He has been having dark stools approximately 6 months. Continue Protonix b.i.d. given remote history of peptic ulcers. Continue to trend hemoglobin and hematocrit. Dr. Cerrato has been consulted and his input is appreciated. (3) Suicidal ideation: Code(s): R45.851 - Suicidal ideations Status: Acute Assessment and Plan: He was noted to have made a comment about using a knife to harm himself.I do not think the patient is actively suicidal, and he likely said this while he was intoxicated. At this time, he has no thoughts of harming himself, he is glad to be alive, and he denies ever making any comments about harming himself. He was evaluated by crisis and was not found to be at risk. He was given information for counselors to speak with and he plans to follow-up on this. (4) Major depression: Qualifiers: Active/Remission status: currently active Major depression episode severity: unspecified Major depression recurrence: recurrent Qualified Code(s): F33.9 - Major depressive disorder, recurrent, unspecified Code(s): F32.9 - Major depressive disorder, single episode, unspecified Status: Acute Assessment and Plan: At this time he denies feelings of being down or hopeless. He does tell me that he feels he has been quite depressed lately and that is why he has been drinking more. He thinks he would benefit from an antidepressant medication. Begin sertraline at 25 mg. Will likely need up-titration dependent on tolerability. He plans to establish with a counselor as above. (5) Chronic anemia: Code(s): D64.9 - Anemia, unspecified Status: Acute Assessment and Plan: Macrocytic. Hemoglobin and hematocrit are bit lower than what he typically runs. He is on oral iron therapy. Iron stores are adequate. B12 is mildly low and folate is within normal limits. Monitor H&H closely and transfuse if indicated. He received 1000 mg IM B12 injection on 10/17/19 (6) Electrolyte imbalance: Code(s): E87.8 - Other disorders of electrolyte and fluid balance, not elsewhere classified Status: Acute Assessment and Plan: Including hypokalemia, hypophosphatemia, hypocalcemia, and hypomagnesemia. Continue magnesium 400 mg qAM. 40 mEq KCL IV administered today. Monitor electrolytes closely (7) Bacteriuria with pyuria: Code(s): R82.71 - Bacteriuria; R82.81 - Pyuria Status: Acute Assessment and Plan: Yesterday he complained of dysuria but denies any irritative voiding symptoms today. Urine culture had 3 or more organisms present that were likely normal robe. He is afebrile, without leukocytosis, and has no additional signs or symptoms to suggest infection. No indication for antibiotics at this time. (8) Current use of terminal supervisor anticoagulation: Code(s): Z79.01 - long term care administrator (current) use of anticoagulants Status: Acute Assessment and Plan: He is on Eliquis for DVT of the left lower extremity and left upper extremity. Continue to hold Eliquis given Hemoccult-positive stool. Await further recommendations from Gastroenterology. May need IVC filter should he continue to have ongoing blood loss. Repeat venous Doppler showed unchanged DVT of left upper and lower extremities. (9) Elevated lactic acid level: Code(s): R79.
[2019-10-19] MEDS: LACTATED RINGERS 1,000 ML 150 ML IV CONT (12:03)
--- NOTE | 2019-10-19 12:07 | WPDANESEPPF ---
Anes - Initial Pre Proc Eval Procedure: Operation Date: 10/19/19 12:30 Proposed Procedures p Esophagogastroduodenoscopy & Colonoscopy - Eliel Cerrato MD Date/Time: 10/19/19 12:07 Surgeon: Rachna Quezada PA-C Pre Op Diagnosis: Hemoccult postive stools and suicidal ideation. Patient Data Age: 59 Gender: M Height: 5 ft 9.5 in Weight: 88.8 kg Last Vital Signs Temp 97.8 F 10/19/19 06:00 Pulse 72 10/19/19 09:21 Resp 18 10/19/19 06:00 BP 115/57 L 10/19/19 06:00 Pulse Ox 99 10/19/19 06:00 Allergies Allergy/AdvReac Type Severity Reaction Status Date / Time No Known Allergies Allergy Unverified 09/06/16 20:58 Home Medications Medication Instructions Recorded Confirmed Type ferrous sulfate 324 mg PO DAILY 30 Days #30 tablet 03/02/19 10/17/19 Rx albuterol sulfate 2 puff INHALATION Q6H PRN #60 g 05/27/19 10/17/19 Rx fluticasone propionate 2 spray INTRANASAL HS #30 ml 05/27/19 10/17/19 Rx levothyroxine 25 mcg PO DAILY@0630 #30 tablet 05/27/19 10/17/19 Rx potassium chloride 20 meq PO EVERY OTHER DAY #30 05/27/19 10/17/19 Rx tablet trazodone 100 mg PO HS PRN #30 tablet 05/27/19 10/17/19 Rx atorvastatin 10 mg PO DAILY 06/30/19 10/17/19 History calcitriol 0.5 mcg PO DAILY 06/30/19 10/17/19 History tamsulosin 0.8 mg PO DAILY 06/30/19 10/17/19 History Eliquis DVT-PE Treat 30D Start See Rx Instructions .ROUTE 07/18/19 10/17/19 Rx .COMPLEX #74 each magnesium oxide 500 mg PO DAILY #30 cap 07/18/19 10/17/19 Rx metoprolol tartrate 25 mg PO BID 30 Days #60 tablet 07/18/19 10/17/19 Rx Cranberry Extract 400 mg BYMOUTH BID 30 Days #60 cap 09/15/19 10/17/19 Rx chlordiazepoxide HCl 5 mg PO TID PRN 3 Days #9 cap 09/15/19 10/17/19 Rx cholecalciferol (vitamin D3) 5,000 unit PO QAM 30 Days #30 10/17/19 10/17/19 Rx [Vitamin D3] tablet nitrofurantoin monohyd/m-cryst 100 mg PO Q12HR 5 Days #10 cap 10/17/19 10/17/19 Rx [Macrobid] potassium, sodium phosphates 1 packet PO BID 2 Days #4 each 10/17/19 10/17/19 Rx [Phos-NaK] Laboratory Tests 10/18/19 10/18/19 10/18/19 12:08 15:40 16:56 WBC RBC Hgb 7.8 g/dL L g/dL (14.0-18.0) Hct 22.9 % L % (42.0-52.0) MCV MCH MCHC RDW Plt Count MPV Immature Gran % (Auto) Neut % (Auto) Lymph % (Auto) [place] % (Auto) Eos % (Auto) Baso % (Auto) Lymph # (Auto) [place] # (Auto) Eos # (Auto) Baso # (Auto) Abs Immat Gran (auto) Absolute Neuts (auto) Absolute Nucleated RBC Nucleated RBC % Sodium Potassium Chloride Carbon Dioxide Anion Gap BUN Creatinine Estim Creat Clear Calc Estimated GFR Glucose POC Capillary Glucose 103 mg/dl mg/dl 130 mg/dl H mg/dl (65-105) (65-105) Calcium Total Bilirubin AST ALT Alkaline Phosphatase Total Protein Albumin Stl Occult Blood (IFOB) 10/18/19 10/18/19 10/18/19 19:58 22:16 22:17 WBC RBC Hgb 8.7 g/dL L g/dL (14.0-18.0) Hct 24.5 % L % (42.0-52.0) MCV MCH MCHC RDW Plt Count MPV Immature Gran % (Auto) Neut % (Auto) Lymph % (Auto) [place] % (Auto) Eos % (Auto) Baso % (Auto) Lymph # (Auto) [place] # (Auto) Eos # (Auto) Baso # (Auto) Abs Immat Gran (auto) Absolute Neuts (auto) Absolute Nucleated RBC Nucleated RBC % Sodium P
[2019-10-19 12:09] LABS: Glucose Point of Care 101 (65-105)
[2019-10-19] MEDS: BENZOCAINE (*SP) 60 ML SPRAY CAN (HURRICAINE) 1 SPRAY MUCOUS MEM (13:14)
--- NOTE | 2019-10-19 13:45 | SUR.OPER ---
EGD ENDED AT 1323, COLON STARTED 1331
[2019-10-19] MEDS: MAGNESIUM OXIDE 400 MG TABLET PO (15:11)
[2019-10-19] MEDS: FERROUS SULFATE 324 MG TABLET PO (15:11)
[2019-10-19] MEDS: chlordiazePOXIDE 25 MG CAPSULE PO ×2 (15:11→23:28)
[2019-10-19] MEDS: CHOLECALCIFEROL 1,000 UNIT TABLET 5000 UNITS PO (15:11)
[2019-10-19] MEDS: THIAMINE HCL 100 MG TABLET PO (15:12)
[2019-10-19] MEDS: FOLIC ACID 1 MG TABLET PO (15:12)
[2019-10-19] MEDS: calcitrioL 0.25 MCG CAPSULE 0.5 MCG PO (15:12)
[2019-10-19 18:07] LABS: Lactic Acid 1.8 mmol/L (0.7-2.1)
[2019-10-19 18:08] LABS: Magnesium 1.9 mg/dL (1.6-2.3); Phosphorus 2.8 mg/dL (2.5-4.5)
[2019-10-19 18:56] LABS: Glucose Point of Care 123 (65-105)
--- NOTE | 2019-10-19 19:37 | PC.NURSE ---
pt to gi lab via stretcher with report to karely at 1045; pt back from gi lab at 1430. pt was notified by concepcion of esophageal ca.
[2019-10-19 20:26] LABS: Hematocrit 21.1 % (42.0-52.0); Hemoglobin 7.2 g/dL (14.0-18.0)
[2019-10-19] MEDS: FLUTICASONE PROPIONATE 0.05% NA SPR 16 GM BTL (*BKC) 2 SPRAY NASAL (23:29)
[2019-10-19] MEDS: traZODone HCL 50 MG TABLET 100 MG PO (23:29)
[2019-10-20] VITALS (11 sets, daily range): BP systolic 125–165; BP diastolic 54–75; PULSE 72–86; RESP 16–20; TEMP 36.5–36.9; O2SAT 97–100
[2019-10-20 00:42] LABS: Hematocrit 21.7 % (42.0-52.0); Hemoglobin 7.2 g/dL (14.0-18.0)
[2019-10-20 06:25] LABS: Basophils Percent Auto 0.2 % (0.2-1.2); Eosinophils Absolute Auto 0.1 K/mm3 (0-0.3); Hemoglobin 7.1 g/dL (14.0-18.0); Immature Granulocyte Absolute 0.04 K/mm3 (0.00-0.031); Immature Granulocyte Percent A 0.8 % (0-0.5); Lymphocytes Absolute Auto 1.53 K/mm3 (0.9-3.2); Lymphocytes Percent Auto 32.4 % (18.3-44.2); Mean Corpuscular HGB Conc 32.3 g/dl (32-36); Mean Corpuscular Hemoglobin 35.1 pg (26-34); Mean Corpuscular Volume 108.9 fl (80-100); Mean Platelet Volume 9.9 fl (7.4-10.4); Monocytes Absolute Auto 0.3 K/mm3 (0.1-0.6); Monocytes Percent Auto 6.8 % (2.6-8.5); Neutrophils Absolute Auto 2.7 K/mm3 (1.3-6.7); Neutrophils Percent Auto 56.8 % (45.5-73.1); Nucleated Red Blood Cells Perc 0.4 % (0.0-0.2); Platelet Count Result 132 k/mm3 (150-375); Red Blood Count 2.02 M/mm3 (4.6-6.20); Red Cell Distribution Width 19.2 % (11.5-14.5); White Blood Count 4.7 K/mm3 (4.5-10.0)
[2019-10-20 06:52] LABS: Alanine Aminotransferase 11 U/L (4-50); Albumin Level 2.1 g/dL (3.5-5.1); Alkaline Phosphatase 84 U/L (38-126); Anion Gap 1 mmol/L (8-16); Aspartate Amino Transferase 30 U/L (17-59); Bilirubin,Total 0.5 mg/dL (0.2-1.3); Blood Urea Nitrogen 3 mg/dL (9-20); Carbon Dioxide 28 mmol/L (22-30); Chloride 102 mmol/L (98-107); Estimated CRCL calculation 113 ml/min; Estimated Glomerular Filt Rate > 60; Glucose 85 mg/dL (75-110); Magnesium 1.9 mg/dL (1.6-2.3); Phosphorus 2.9 mg/dL (2.5-4.5); Potassium 3.3 mmol/L (3.4-5.0); Sodium 131 mmol/L (137-145)
[2019-10-20] MEDS: LEVOTHYROXINE SODIUM 25 MCG TABLET PO (06:53)
[2019-10-20] MEDS: chlordiazePOXIDE 25 MG CAPSULE PO ×2 (06:53→20:18)
--- NOTE | 2019-10-20 07:42 | WPDANESPN ---
Anes - Prog Note Post-Op Date/Time: 10/20/19 07:42 Cardiovascular status: normal Respiratory status: normal Airway patency: baseline Mental status: baseline Post-Op hydration status: normal Vital Signs: Last Vital Signs Temp 36.9 C 10/20/19 06:00 Pulse 79 10/20/19 06:00 Resp 18 10/20/19 06:00 BP 133/70 10/20/19 06:00 Pulse Ox 99 10/20/19 06:00 I/O: Intake & Output 10/19/19 10/19/19 10/20/19 15:59 23:59 07:59 Intake Total 0 200 400 Output Total 200 Balance 0 200 200 Laboratory Tests 10/20/19 06:09 10/20/19 06:09 10/19/19 10/19/19 10/19/19 12:06 17:37 17:37 WBC RBC Hgb Hct MCV MCH MCHC RDW Plt Count MPV Immature Gran % (Auto) Neut % (Auto) Lymph % (Auto) [place] % (Auto) Eos % (Auto) Baso % (Auto) Lymph # (Auto) [place] # (Auto) Eos # (Auto) Baso # (Auto) Abs Immat Gran (auto) Absolute Neuts (auto) Absolute Nucleated RBC Nucleated RBC % Sodium Potassium Chloride Carbon Dioxide Anion Gap BUN Creatinine Estim Creat Clear Calc Estimated GFR Glucose POC Capillary Glucose 101 Lactic Acid 1.8 Calcium Phosphorus 2.8 Magnesium 1.9 Total Bilirubin AST ALT Alkaline Phosphatase Total Protein Albumin 10/19/19 10/19/19 10/20/19 18:54 20:06 00:28 WBC RBC Hgb 7.2 L 7.2 L Hct 21.1 L 21.7 L MCV MCH MCHC RDW Plt Count MPV Immature Gran % (Auto) Neut % (Auto) Lymph % (Auto) [place] % (Auto) Eos % (Auto) Baso % (Auto) Lymph # (Auto) [place] # (Auto) Eos # (Auto) Baso # (Auto) Abs Immat Gran (auto) Absolute Neuts (auto) Absolute Nucleated RBC Nucleated RBC % Sodium Potassium Chloride Carbon Dioxide Anion Gap BUN Creatinine Estim Creat Clear Calc Estimated GFR Glucose POC Capillary Glucose 123 H Lactic Acid Calcium Phosphorus Magnesium Total Bilirubin AST ALT Alkaline Phosphatase Total Protein Albumin 08/11/20 08/11/20 08/11/20 06:09 06:09 06:09 WBC 4.7 RBC 2.02 L Hgb 7.1 L Hct 22.0 L MCV 108.9 H MCH 35.1 H MCHC 32.3 RDW 19.2 H Plt Count 132 L MPV 9.9 Immature Gran % (Auto) 0.8 H Neut % (Auto) 56.8 Lymph % (Auto) 32.4 [place] % (Auto) 6.8 Eos % (Auto) 3.0 Baso % (Auto) 0.2 Lymph # (Auto) 1.53 [place] # (Auto) 0.3 Eos # (Auto) 0.1 Baso # (Auto) 0.0 Abs Immat Gran (auto) 0.04 H Absolute Neuts (auto) 2.7 Absolute Nucleated RBC 0.0 Nucleated RBC % 0.4 H Sodium 131 L Potassium 3.3 L Chloride 102 Carbon Dioxide 28 Anion Gap 1 L BUN 3 L Creatinine 0.60 L Estim Creat Clear Calc 113 Estimated GFR > 60 Glucose 85 POC Capillary Glucose Lactic Acid Pending Calcium 7.0 L Phosphorus 2.9 Magnesium 1.9 Total Bilirubin 0.5 AST 30 ALT 11 Alkaline Phosphatase 84 Total Protein 5.0 L Albumin 2.1 L Post-procedural complaints: none Patient Feedback: Patient satisfied with anesthetic care.
[2019-10-20 07:46] LABS: Lactic Acid 0.5 mmol/L (0.7-2.1)
[2019-10-20 08:22] LABS: Glucose Point of Care 82 (65-105)
[2019-10-20] MEDS: CHOLECALCIFEROL 1,000 UNIT TABLET 5000 UNITS PO (09:01)
[2019-10-20] MEDS: POTASSIUM CHLORIDE 20 MEQ TABLET.ER PO (09:02)
[2019-10-20] MEDS: FOLIC ACID 1 MG TABLET PO (09:02)
[2019-10-20] MEDS: calcitrioL 0.25 MCG CAPSULE 0.5 MCG PO (09:02)
[2019-10-20] MEDS: FERROUS SULFATE 324 MG TABLET PO (09:02)
[2019-10-20] MEDS: METOPROLOL TARTRATE 25 MG TABLET PO ×2 (09:02→20:17)
[2019-10-20] MEDS: PANTOPRAZOLE SODIUM IV 40 MG VIAL IV PUSH ×2 (09:03→20:17)
[2019-10-20] MEDS: TAMSULOSIN HCL 0.4 MG CAPSULE 0.8 MG PO (09:03)
[2019-10-20] MEDS: THIAMINE HCL 100 MG TABLET PO (09:03)
[2019-10-20] MEDS: SERTRALINE HCL 25 MG TABLET PO (09:03)
[2019-10-20] MEDS: ATORVASTATIN 10 MG TABLET PO (09:03)
[2019-10-20] MEDS: MAGNESIUM OXIDE 400 MG TABLET PO (09:03)
--- NOTE | 2019-10-20 11:57 | WPDGIPROGNO ---
Progress Note: A&P Additional Plan Patient alert and comfortable this morning. No bleeding identified. Anxious for more solid food. Physical exam reveals Vital Signs to be stable. HEENT exam unremarkable he is anicteric. Lungs are clear. Heart without murmur. Abdomen bowel sounds are present soft nontender with no organomegaly. Impression 1. Esophageal mass. Identified by endoscopy. 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 Histology pending. CT scan of the chest to be performed today. Oncology consultation suggested histology should be available tomorrow. 2. Previous Billroth II partial gastrectomy. 3. Alcohol abuse. \ 4. Chronic anemia. Plan to advance diet. Await histology. Oncology consult CT scan as described. Subjective Date/time seen: 10/20/19 11:57 Objective Data Vital Signs Vital Signs: Vital Signs - 24 hr 10/19/19 12:09 10/19/19 13:46 10/19/19 13:56 Temperature 98.2 F Pulse Rate 86 78 80 Pulse Rate [Apical] Respiratory Rate 20 17 20 Blood Pressure 127/70 92/58 L 97/58 L Pulse Oximetry 98 97 100 10/19/19 14:06 10/19/19 14:40 10/19/19 22:00 Temperature 97.2 F L 98.9 F Pulse Rate 77 79 90 Pulse Rate [Apical] Respiratory Rate 21 H 18 18 Blood Pressure 125/79 124/66 126/72 Pulse Oximetry 100 90 99 10/19/19 23:28 10/20/19 02:00 10/20/19 06:00 Temperature 97.8 F 98.5 F Pulse Rate 90 84 79 Pulse Rate [Apical] Respiratory Rate 16 18 Blood Pressure 134/68 133/70 Pulse Oximetry 97 99 10/20/19 08:47 10/20/19 09:02 10/20/19 10:00 Temperature 97.7 F Pulse Rate 86 81 Pulse Rate [Apical] 82 Respiratory Rate 20 Blood Pressure 143/75 H 165/67 H Pulse Oximetry 100 10/20/19 10:47 Temperature Pulse Rate Pulse Rate [Apical] Respiratory Rate Blood Pressure 165/67 H Pulse Oximetry Intake/Output Intake/Output: Intake & Output 10/17/19 10/18/19 10/19/19 10/20/19 23:59 23:59 23:59 23:59 Intake Total 240 1030 760 400 Output Total 450 875 400 200 Balance -210 155 360 200 Meds/Results Medications: Active Medications Generic Name Dose Route Start Last Admin Trade Name Freq PRN Reason Stop Dose Admin Albuterol 2 puff 10/17/19 22:07 Proventil Hfa INHALATION Q6H PRN Shortness Of Breath Or Wheezing Atorvastatin Calcium 10 mg 10/18/19 09:00 10/20/19 09:03 Lipitor PO 10 mg DAILY SHAZIA Administration Calcitriol 0.5 mcg 10/18/19 09:00 10/20/19 09:02 Rocaltrol PO 11/17/19 09:01 0.5 mcg DAILY SHAZIA Administration Chlordiazepoxide HCl 25 mg 10/20/19 21:00 Librium Po PO Q12H SHAZIA Dextrose 12.5 gm 10/17/19 13:57 Dextrose 50% Syringe IV PUSH PRN PRN Hypoglycemia Protocol Ferrous Sulfate 324 mg 10/18/19 08:00 10/20/19 09:02 Ferrous Sulfate PO 324 mg DAILY@0800 SHAZIA Administration Fluticasone Propionate 2 spray 10/17/19 22:15 10/19/19 23:29 Flonase 0.05% Nasal [place] NASAL 2 spray HS SHAZIA Administration Folic Acid 1 mg 10/18/19 09:00 10/20/19 09:02 Folic Acid PO 1 mg DAILY SHAZIA Administration Glucagon 1 mg 10/17/19 13:57 Glucagon For Inj IM PRN PRN Hypoglycemia Protocol Glucose 15 gm 10/17/19 13:57 Glutose 15 PO PRN PRN Hypoglycemia Protocol Dextrose 1,000 mls @ 100 mls/hr 10/17/19 13:57 Dextrose 5% 1,000 Ml IVPB PRN PRN Hypoglycemia Protocol Potassium Chloride 500 mls @ 125 mls/hr 10/20/19 08:01 10/20/19 09:09 Kcl 40 Meq/D5w 500 Ml Peripheral IVPB 10/20/19 12:00 100 mls/hr ONCE ONE Administration Levothyroxine Sodium 25 mcg 10/18/19 06:30 10/20/19 06:53 Synthroid PO 25 mcg DAILY@0630 SHAZIA Administration Lidocaine HCl 0.3 ml 10/19/19 09:52 Xylocaine 2% Local Inj INTRADERM ONCE PRN to numb area Lorazepam 0.5 mg 10/17/19 16:38 Ativan Inj IV PUSH Q6H PRN CIWA > 8 - reasses q 15 min Magnesium O
[2019-10-20 14:27] LABS: Glucose Point of Care 103 (65-105)
--- NOTE | 2019-10-20 15:21 | PM.IMPN ---
Progress Note: A&P Assessment and Plan (1) Mass of esophagus determined by endoscopy: Code(s): K22.8 - Other specified diseases of esophagus Status: Acute Assessment and Plan: EGD yesterday per Dr. Cerrato revealed mid esophageal ulcerative mass that was malignant appearing; no signs of active bleeding. CT chest shows wall thickening of the mid esophagus, consistent with primary malignancy. Biopsies were taken and will await results oncology consult was placed and recommendations are appreciated. (2) Heme positive stool: Code(s): R19.5 - Other fecal abnormalities Status: Acute Assessment and Plan: He has been having dark stools approximately 6 months. Dark tarry stool today, per patient. Continue Protonix b.i.d. Continue to trend hemoglobin and hematocrit this afternoon Dr. Cerrato has been consulted and his input is appreciated. (3) Suicidal ideation: Code(s): R45.851 - Suicidal ideations Status: Acute Assessment and Plan: He was noted to have made a comment about using a knife to harm himself.I do not think the patient is actively suicidal, and he likely said this while he was intoxicated. At this time, he has no thoughts of harming himself, he is glad to be alive, and he denies ever making any comments about harming himself. He was evaluated by crisis and was not found to be at risk. He was given information for counselors to speak with and he plans to follow-up on this. (4) Major depression: Qualifiers: Major depression recurrence: recurrent Active/Remission status: currently active Major depression episode severity: unspecified Qualified Code(s): F33.9 - Major depressive disorder, recurrent, unspecified Code(s): F32.9 - Major depressive disorder, single episode, unspecified Status: Acute Assessment and Plan: At this time he denies feelings of being down or hopeless. He has been quite depressed lately and that is why he has been drinking more. He thinks he would benefit from an antidepressant medication. Continue sertraline at 25 mg. Will likely need up-titration dependent on tolerability. He plans to establish with a counselor as above. (5) Chronic anemia: Code(s): D64.9 - Anemia, unspecified Status: Acute Assessment and Plan: Macrocytic. Hemoglobin and hematocrit are bit lower than what he typically runs. He is on oral iron therapy. Iron stores are adequate. B12 is mildly low and folate is within normal limits. He notes dark stools, but possibly due to iron therapy Monitor H&H closely and transfuse if indicated. He received 1000 mg IM B12 injection on 10/17/19; will give another dose today. Likely will need f/u as an outpatient (6) Electrolyte imbalance: Code(s): E87.8 - Other disorders of electrolyte and fluid balance, not elsewhere classified Status: Acute Assessment and Plan: Including hypokalemia, hypophosphatemia, hypocalcemia, and hypomagnesemia. K 3.3 today, Na stable at 131. Mag WNL. Continue magnesium 400 mg qAM. 40 mEq KCL IV administered this morning Monitor electrolytes closely (7) Bacteriuria with pyuria: Code(s): R82.71 - Bacteriuria; R82.81 - Pyuria Status: Acute Assessment and Plan: Earlier in stay he complained of dysuria but denies any irritative voiding symptoms today. Urine culture had 3 or more organisms present that were likely normal robe. He is afebrile, without leukocytosis, and has no additional signs or symptoms to suggest infection. No indication for antibiotics at this time. (8) Current use of intermediate anticoagulation: Code(s): Z
[2019-10-20] MEDS: CYANOCOBALAMIN INJ 1,000 MCG/ML VIAL 1000 MCG IM (15:49)
[2019-10-20 17:09] LABS: Hematocrit 22.2 % (42.0-52.0); Hemoglobin 7.3 g/dL (14.0-18.0)
[2019-10-20 17:15] LABS: Alanine Aminotransferase 9 U/L (4-50); Alkaline Phosphatase 87 U/L (38-126); Anion Gap 3 mmol/L (8-16); Aspartate Amino Transferase 35 U/L (17-59); Bilirubin,Total 0.6 mg/dL (0.2-1.3); Blood Urea Nitrogen 3 mg/dL (9-20); Carbon Dioxide 22 mmol/L (22-30); Chloride 103 mmol/L (98-107); Estimated CRCL calculation 113 ml/min; Estimated Glomerular Filt Rate > 60; Glucose 92 mg/dL (75-110); Sodium 128 mmol/L (137-145)
--- NOTE | 2019-10-20 17:49 | PDONCCN ---
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 Patient also has a history of thyroid cancer status post thyroidectomy and coronary artery disease. Patient has history of peptic ulcer disease status post gastric surgery in the past. Patient fell into the bathroom due to profound weakness and 9 1 was called. He has dark-colored stool secondary to iron intake. She was taken to hospital at this time on 10 and hemoccult stool was positive. Patient has a history of depression as well. CT scan of chest was done that showed mid esophageal wall thickening consistent with esophageal cancer. EGD was performed that showed malignant-appearing esophageal mass. Colonoscopy showed internal hemorrhoid and diverticulosis with stigmata of bleeding. His hemoglobin was 7.4. He denies any diarrhea and constipation but does have some rectal incontinence. Review of Systems - Review of Systems All systems reviewed & are unremarkable except as noted in HPI and [facility] Medical History: Medical History (Last Reviewed 10/20/19 @ 17:54 by Carroll Faye MD) Alcohol abuse Anxiety Benign prostatic hyperplasia Chronic anemia Compression fracture Including thoracic and lumbar compression fractures. Current use of skilled nursing anticoagulation For DVTs of the upper and lower extremities detailed below. Deep venous thrombosis Left femoral vein, left internal jugular, and let axillary veins noted on ultrasound in May 2019. Hepatic steatosis Hypertension Kidney stones Major depression Nicotine use disorder Peptic ulcer disease Remote history of perforated peptic ulcer status post partial gastrectomy. Peripheral neuropathy Substance abuse Thyroid cancer Status post partial thyroidectomy. Previously on levothyroxine. Type 2 [place] (myocardial infarction) Onset Date: ~08/2016 No ischemic cardiac evaluation was undertaken. Surgical History: Surgical History (Last Reviewed 10/20/19 @ 17:54 by Carroll Faye MD) History of cholecystectomy History of hernia repair Multiple ventral hernia repairs including incisional hernia repair, some with mesh. History of partial gastrectomy For perforated peptic ulcer. History of partial thyroidectomy For thyroid cancer. Family History: Family History (Last Reviewed 10/20/19 @ 17:54 by Carroll Faye MD) Father Cancer Mother Dementia - Social History Social History: Social History (Last Reviewed 10/20/19 @ 17:54 by Carroll Faye MD) Alcohol Use: Alcohol use details: Patient is not very forthcoming with his alcohol consumption, it sounds like he has had intermittent periods of sobriety. He maintains that he drink non-alcoholic beer with a Joaquim Yovany here and there. Substance Use: Substance use: never Substance use type: does not use Others: Spiritual care concerns: No Agree to blood products: Yes Oppucation/Education: Occupation/Education: unemployed Smoking Status: Smoking status: Current every day smoker Tobacco type: cigarettes Second hand tobacco smoke exposure: Yes Smoking Pack-years: Smoking packs per day: 0.5 Smoking cigarettes per day: 10.0 Years smoked: 40 Smoking pack-years: 20.00 Comments: Additional smoking assessment comments: Typically smokes between 2 and 6 cigarettes a day. Meds Home Medications Medication Instructions Recorded Confirmed Type ferrous sulfate 324 mg PO DAILY 30 Days #30 tablet 03/02/19 10/17/19 Rx albuterol sulfate 2 puff INHALATION Q6H PRN #60 g 05/27/19 10/17/19 Rx fluticasone propionate 2 spray INTRANASAL HS #30 ml 05/27/19 0
[2019-10-20 18:06] LABS: Glucose Point of Care 96 (65-105)
[2019-10-20] MEDS: FLUTICASONE PROPIONATE 0.05% NA SPR 16 GM BTL (*BKC) 2 SPRAY NASAL (20:17)
[2019-10-20 22:07] LABS: Glucose Point of Care 128 (65-105)
[2019-10-21] VITALS (18 sets, daily range): BP systolic 105–152; BP diastolic 56–89; PULSE 68–91; RESP 16–18; TEMP 36.3–37.1; O2SAT 97–100
[2019-10-21] MEDS: LEVOTHYROXINE SODIUM 25 MCG TABLET PO (05:29)
[2019-10-21 06:08] LABS: Hemoglobin 7.9 g/dL (14.0-18.0); Mean Corpuscular HGB Conc 32.9 g/dl (32-36); Mean Corpuscular Hemoglobin 36.1 pg (26-34); Mean Corpuscular Volume 109.6 fl (80-100); Mean Platelet Volume 10.1 fl (7.4-10.4); Platelet Count Result 180 k/mm3 (150-375); Red Blood Count 2.19 M/mm3 (4.6-6.20); Red Cell Distribution Width 19.9 % (11.5-14.5); White Blood Count 5.1 K/mm3 (4.5-10.0)
[2019-10-21 06:24] LABS: Alanine Aminotransferase 11 U/L (4-50); Albumin Level 2.1 g/dL (3.5-5.1); Alkaline Phosphatase 88 U/L (38-126); Anion Gap 2 mmol/L (8-16); Aspartate Amino Transferase 28 U/L (17-59); Bilirubin,Total 0.4 mg/dL (0.2-1.3); Blood Urea Nitrogen 4 mg/dL (9-20); Calcium 7.1 mg/dL (8.4-10.2); Carbon Dioxide 27 mmol/L (22-30); Chloride 103 mmol/L (98-107); Estimated CRCL calculation 98 ml/min; Estimated Glomerular Filt Rate > 60; Glucose 84 mg/dL (75-110); Magnesium 1.8 mg/dL (1.6-2.3); Phosphorus 3.5 mg/dL (2.5-4.5); Potassium 3.9 mmol/L (3.4-5.0); Sodium 132 mmol/L (137-145)
[2019-10-21 08:31] LABS: Glucose Point of Care 84 (65-105)
[2019-10-21] MEDS: calcitrioL 0.25 MCG CAPSULE 0.5 MCG PO (09:00)
[2019-10-21] MEDS: MAGNESIUM OXIDE 400 MG TABLET PO (09:01)
[2019-10-21] MEDS: CHOLECALCIFEROL 1,000 UNIT TABLET 5000 UNITS PO (09:01)
[2019-10-21] MEDS: THIAMINE HCL 100 MG TABLET PO (09:01)
[2019-10-21] MEDS: FERROUS SULFATE 324 MG TABLET PO (09:02)
[2019-10-21] MEDS: TAMSULOSIN HCL 0.4 MG CAPSULE 0.8 MG PO (09:02)
[2019-10-21] MEDS: SERTRALINE HCL 25 MG TABLET PO (09:02)
[2019-10-21] MEDS: ATORVASTATIN 10 MG TABLET PO (09:02)
[2019-10-21] MEDS: FOLIC ACID 1 MG TABLET PO (09:02)
[2019-10-21] MEDS: chlordiazePOXIDE 25 MG CAPSULE PO (09:02)
[2019-10-21] MEDS: METOPROLOL TARTRATE 25 MG TABLET PO ×2 (09:02→20:15)
[2019-10-21] MEDS: PANTOPRAZOLE SODIUM IV 40 MG VIAL IV PUSH ×2 (09:03→20:15)
[2019-10-21] MEDS: CYANOCOBALAMIN INJ 1,000 MCG/ML VIAL 1000 MCG IM (09:03)
--- NOTE | 2019-10-21 10:06 | WPDGIPROGNO ---
Progress Note: A&P Additional Plan patient alert and comfortable this morning. Tolerating oral intake without difficulty. Denies pain. Physical exam reveals patient alert and oriented. Vital signs are stable. HEENT exam unremarkable. He is anicteric. Lungs are clear. Heart without murmur. Abdomen bowel sounds are present soft nontender. Labs reveal esophageal mass biopsy consistent with squamous cell carcinoma. CT scan of chest reveals thickening mid esophagus consistent with esophageal cancer. Impression 1. Squamous cell carcinoma of mid esophagus. Appreciate oncology follow-up. We plan to proceed with our recommendations for additional testing. Endoscopic ultrasound will be need to be done at a tertiary care center not available at [place]. 2. Alcohol abuse. Alcohol rehab encourage. Subjective Date/time seen: 10/21/19 10:06 Objective Data Vital Signs Vital Signs: Vital Signs - 24 hr 10/20/19 10:47 10/20/19 12:00 10/20/19 14:00 Temperature 97.8 F Pulse Rate 83 Pulse Rate [Apical] 82 Respiratory Rate 18 Blood Pressure 165/67 H 159/54 H 125/68 Pulse Oximetry 99 10/20/19 16:00 10/20/19 20:17 10/20/19 22:00 Temperature 97.7 F Pulse Rate 83 72 Pulse Rate [Apical] 80 Respiratory Rate 18 Blood Pressure 142/69 H 139/73 Pulse Oximetry 100 10/21/19 00:00 10/21/19 02:00 10/21/19 04:00 Temperature 98.0 F Pulse Rate 78 Pulse Rate [Apical] 74 68 Respiratory Rate 18 Blood Pressure 143/82 H Pulse Oximetry 98 10/21/19 05:05 10/21/19 08:00 10/21/19 09:02 Temperature 98.7 F Pulse Rate 76 81 Pulse Rate [Apical] 81 Respiratory Rate 18 Blood Pressure 139/73 152/89 H Pulse Oximetry 99 Intake/Output Intake/Output: Intake & Output 10/18/19 10/19/19 10/20/19 10/21/19 23:59 23:59 23:59 23:59 Intake Total 1030 760 890 250 Output Total 875 400 700 100 Balance 155 360 190 150 Meds/Results Medications: Active Medications Generic Name Dose Route Start Last Admin Trade Name Freq PRN Reason Stop Dose Admin Albuterol 2 puff 10/17/19 22:07 Proventil Hfa INHALATION Q6H PRN Shortness Of Breath Or Wheezing Atorvastatin Calcium 10 mg 10/18/19 09:00 10/21/19 09:02 Lipitor PO 10 mg DAILY SHAZIA Administration Calcitriol 0.5 mcg 10/18/19 09:00 10/21/19 09:00 Rocaltrol PO 11/17/19 09:01 0.5 mcg DAILY SHAZIA Administration Chlordiazepoxide HCl 25 mg 10/20/19 21:00 10/21/19 09:02 Librium Po PO 25 mg Q12H SHAZIA Administration Cyanocobalamin 1,000 mcg 10/21/19 09:00 10/21/19 09:03 Vitamin B-12 Inj IM 10/22/19 09:01 1,000 mcg DAILY SHAZIA Administration Dextrose 12.5 gm 10/17/19 13:57 Dextrose 50% Syringe IV PUSH PRN PRN Hypoglycemia Protocol Ferrous Sulfate 324 mg 10/18/19 08:00 10/21/19 09:02 Ferrous Sulfate PO 324 mg DAILY@0800 SHAZIA Administration Fluticasone Propionate 2 spray 10/17/19 22:15 10/20/19 20:17 Flonase 0.05% Nasal [place] NASAL 2 spray HS SHAZIA Administration Folic Acid 1 mg 10/18/19 09:00 10/21/19 09:02 Folic Acid PO 1 mg DAILY SHAZIA Administration Glucagon 1 mg 10/17/19 13:57 Glucagon For Inj IM PRN PRN Hypoglycemia Protocol Glucose 15 gm 10/17/19 13:57 Glutose 15 PO PRN PRN Hypoglycemia Protocol Hydralazine HCl 10 mg 10/20/19 12:34 Apresoline Hcl Inj IV PUSH Q8H PRN Blood Pressure - High Dextrose 1,000 mls @ 100 mls/hr 10/17/19 13:57 Dextrose 5% 1,000 Ml IVPB PRN PRN Hypoglycemia Protocol Levothyroxine Sodium 25 mcg 10/18/19 06:30 10/21/19 05:29 Synthroid PO 25 mcg DAILY@0630 SHAZIA Administration Lidocaine HCl 0.3 ml 10/19/19 09:52 Xylocaine 2% Local Inj INTRADERM ONCE PRN to numb area Lorazepam 0.5 mg 10/17/19 16:38 Ativan Inj IV PUSH Q6H PRN CIWA > 8 - reasses q 15 min Magnesium Oxide 400 mg 10/18/19
[2019-10-21 12:49] LABS: Glucose Point of Care 97 (65-105)
--- NOTE | 2019-10-21 13:16 | PM.IMPN ---
Progress Note: A&P Assessment and Plan (1) Squamous cell carcinoma of esophagus: Code(s): C15.9 - Malignant neoplasm of esophagus, unspecified Status: Acute Assessment and Plan: EGD on 10/[address] Cerrato revealed mid esophageal ulcerative mass that was malignant appearing; no signs of active bleeding. CT chest shows wall thickening of the mid esophagus, consistent with primary malignancy. Endoscopic Biopsy revealed MODERATELY DIFFERENTIATED SQUAMOUS CELL CARCINOMA, INVADING SMOOTH MUSCLE Heme/Onc consulted and appreciate recommendations. Discussed case in detail with Dr. Faye and HEATH Foss and plan will be to transfuse 1 unit pRBC tonight, monitor H&H overnight, and possibly discharge tomorrow if okay with GI and clinically improves. Per Dr. Faye recommendations, will hold Eliquis on discharge and will be reevaluated next week on when to resume this medication. Please see below for IVC filter evaluation (2) Heme positive stool: Code(s): R19.5 - Other fecal abnormalities Status: Acute Assessment and Plan: He has been having dark stools approximately 6 months. Dark stool yesterday per patient, none today; he reports this has improved. Patient takes iron pill as well. H&H is low, but stable. No signs of active bleeding. Continue Protonix b.i.d. 1 u pRBC today Monitor H&H overnight Dr. Cerrato has been consulted and his input is appreciated. (3) Chronic anemia: Code(s): D64.9 - Anemia, unspecified Status: Acute Assessment and Plan: Macrocytic. Hemoglobin and hematocrit are bit lower than what he typically runs. He is on oral iron therapy. Iron stores are adequate. B12 is mildly low and folate is within normal limits. He notes dark stools, but possibly due to iron therapy. Dr. Faye consulted and following Monitor H&H As above, transfuse 1 u pRBC today 1000 mg IM B12 injection today and tomorrow per Dr. Faye Likely will need f/u as an outpatient (4) Current use of buttermaker continuous churn anticoagulation: Code(s): Z79.01 - rn long term care (current) use of anticoagulants Status: Acute Assessment and Plan: He is on Eliquis for DVT of the left lower extremity and left upper extremity. Repeat venous Doppler showed unchanged DVT of left upper and lower extremities. Discussed with Dr. Faye who requested General Surgery consult for evaluation for IVC filter. Discussed in length with Dr. Ball who reviewed the chart and states that these clots appear to be chronic in nature and are stable and that a/c can be discontinued since he has had more than 6 months of therapy; states there is no need for General Surgery consultation at this time for above reason. He also stated that given his jugular thrombosis, he would possible need a SVC filter should this be decided by Dr. Faye; this is not performed at this facility and would need to be done at a center with vascular surgery. Patient gives unclear history of how long he has had these clots, but has noted he has been on both either Eliquis or warfarin for about 1 year. Continue to hold Eliquis given Hemoccult-positive stool Will have patient follow up with Dr. Faye's office next week to evaluate for possible resumption of Eliquis in the future for current and possible future clots given his cancer diagnosis putting him at risk for further clotting. Discussed this with HEATH Foss for Dr. Faye (5) Electrolyte imbalance: Code(s): E87.8 - Other disorders of electrolyte and fluid balance, not elsewhere classified Status: Acute Assessment and Plan: Including hypokalemia, hypophosphatemia, hypocalcemia, and hypomagnesemia. K 3.9 today, Na stable at 132. Mag WNL. Continue magnesium 400 mg qAM. Monitor electrolytes closely
--- NOTE | 2019-10-21 16:10 | WPDONCPN ---
Progress Note: A/P - Additional Plan 1. Esophageal cancer. Biopsy proven. Will need to complete staging with PET/CT and EUS as outpatient. Will be seen by Dr. Faye within a week of discharge. 2. Anemia. h/o dark stools on oral iron but recent guaiac positive. On PPI BID. Hgb 7.9 currently. Will get 1U PRBC prior to discharge. On oral iron and folic acid, B12 INJ x 2. 3. Hypercoaguability. Pt now has active malignancy with history of DVT in Lt IJ and proximal to mid left femoral vein, appear chronic on venous Doppler compared to May 2019. Also with occlusive superficial thrombosis at bilat cephalic veins. Most recently on Eliquis, currently held given anemia and guaiac positive. Will be managed by Dr. Faye as outpatient. - Time Spent With Patient Total time spent is greater than 50% in coordination of care (as documented) at patient's floor/unit and/or counseling patient: 15 - 25 minutes Subjective Interval history: 59 yo WM admitted on 10/18 with generalized weakness and fall. Had Hgb 8.2 on admit that has nadired to 7.1 to date, currently 7.9. Guaiac positive stool on 10/17. He is on oral iron, folic acid, and B12 INJ x 2 with plans for transfusion. Chest CT on 10/16 showed esophageal wall thickening c/w primary malignancy. GI workup on 10/18 revealed a protruding, non-obstructing ulcerated mass in the mid esophagus. 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 Colonoscopy showed scars in the transverse colon, diverticulosis in the sigmoid colon, and internal hemorrhoids. Pathology show moderate nonspecific chronic colitis with focal fibrosis. He reports feeling dizzy and weak but denies fever or chills, shortness of breath, chest pain, abdominal pain, nausea/vomiting or dysphagia. He previously reported acute weight loss. Review of Systems - Review of Systems All systems reviewed & are unremarkable except as noted in HPI and bel Exam Vital signs: Temp Pulse Resp BP Pulse Ox 37.0 C 82 18 142/80 H 100 10/21/19 15:50 10/21/19 15:50 10/21/19 15:50 10/21/19 15:50 10/21/19 15:50 - Constitutional no acute distress, obese, cooperative - Routine HEENT Exam Head: Present: normal inspection, normocephalic Eye: Present: EOMI. Absent: scleral icterus - Routine Neck Exam Present: full ROM Comments: Puffiness in Lt supraclavicular region without discrete adenopathy but has known chronic Lt IJ DVT - Routine Cardiovascular Exam Cardiovascular: Present: RRR - Routine Abdominal Exam Present: normal bowel sounds, soft. Absent: tenderness - Detailed Lower Extremity Exam Comments: Bilateral distal lower extermities feel taut PN: Objective Data - Labs CBC & Chem 7: 10/21/19 05:41 10/21/19 05:41 Labs: Laboratory Results - last 24 hr 10/20/19 10/20/19 10/20/19 16:54 16:54 17:56 WBC RBC Hgb 7.3 L Hct 22.2 L MCV MCH MCHC RDW Plt Count MPV Sodium 128 L Potassium 4.0 Chloride 103 Carbon Dioxide 22 Anion Gap 3 L BUN 3 L Creatinine 0.60 L Estim Creat Clear Calc 113 Estimated GFR > 60 Glucose 92 POC Capillary Glucose 96 Calcium 7.0 L Phosphorus Magnesium Total Bilirubin 0.6 AST 35 ALT 9 Alkaline Phosphatase 87 Total Protein 5.0 L Albumin 2.0 L Blood Type Antibody Screen Crossmatch 10/20/19 10/21/19 10/21/19 20:35 05:41 05:41 WBC 5.1 RBC 2.19 L Hgb 7.9 L Hct 24.0 L MCV 109.6 H MCH 36.1 H MCHC 32.9 RDW 19.9 H Plt Count 180 MPV 10.1 Sodium 132 L Potassium 3.9 Chloride 103 Carbon Dioxide 27 Anion Gap 2 L BUN 4 L Creatinine 0.70 Estim Creat Clear Calc 98 Estimated GFR > 60 Glucose 84 POC Capillary Glucose 128 H Calcium 7.1 L Phosphorus 3.5 Magnesium
[2019-10-21 17:47] LABS: Glucose Point of Care 90 (65-105)
[2019-10-21 19:07] LABS: Hematocrit 28.6 % (42.0-52.0); Hemoglobin 9.5 g/dL (14.0-18.0)
[2019-10-21] MEDS: FLUTICASONE PROPIONATE 0.05% NA SPR 16 GM BTL (*BKC) 2 SPRAY NASAL (20:15)
[2019-10-21] MEDS: traZODone HCL 50 MG TABLET 100 MG PO (20:15)
[2019-10-22] VITALS (7 sets, daily range): BP systolic 126–156; BP diastolic 76–90; PULSE 76–91; RESP 18; TEMP 36.1–36.7; O2SAT 98–100
[2019-10-22 06:44] LABS: Hematocrit 26.4 % (42.0-52.0); Hemoglobin 8.9 g/dL (14.0-18.0); Mean Corpuscular HGB Conc 33.7 g/dl (32-36); Mean Corpuscular Hemoglobin 34.9 pg (26-34); Mean Corpuscular Volume 103.5 fl (80-100); Mean Platelet Volume 9.3 fl (7.4-10.4); Platelet Count Result 204 k/mm3 (150-375); Red Blood Count 2.55 M/mm3 (4.6-6.20); Red Cell Distribution Width 20.2 % (11.5-14.5); White Blood Count 5.9 K/mm3 (4.5-10.0)
[2019-10-22] MEDS: LEVOTHYROXINE SODIUM 25 MCG TABLET PO (06:50)
[2019-10-22 06:55] LABS: Alanine Aminotransferase 12 U/L (4-50); Albumin Level 2.2 g/dL (3.5-5.1); Alkaline Phosphatase 78 U/L (38-126); Anion Gap 3 mmol/L (8-16); Aspartate Amino Transferase 23 U/L (17-59); Bilirubin,Total 0.6 mg/dL (0.2-1.3); Blood Urea Nitrogen 6 mg/dL (9-20); Calcium 7.1 mg/dL (8.4-10.2); Carbon Dioxide 25 mmol/L (22-30); Chloride 105 mmol/L (98-107); Estimated CRCL calculation 98 ml/min; Estimated Glomerular Filt Rate > 60; Glucose 86 mg/dL (75-110); Magnesium 1.8 mg/dL (1.6-2.3); Potassium 3.7 mmol/L (3.4-5.0); Sodium 133 mmol/L (137-145)
[2019-10-22] MEDS: POTASSIUM CHLORIDE 20 MEQ TABLET.ER PO (08:41)
[2019-10-22] MEDS: FERROUS SULFATE 324 MG TABLET PO (08:41)
[2019-10-22] MEDS: ATORVASTATIN 10 MG TABLET PO (08:42)
[2019-10-22] MEDS: FOLIC ACID 1 MG TABLET PO (08:43)
[2019-10-22] MEDS: CYANOCOBALAMIN INJ 1,000 MCG/ML VIAL 1000 MCG IM (08:43)
[2019-10-22] MEDS: MAGNESIUM OXIDE 400 MG TABLET PO (08:44)
[2019-10-22] MEDS: METOPROLOL TARTRATE 25 MG TABLET PO (08:44)
[2019-10-22] MEDS: TAMSULOSIN HCL 0.4 MG CAPSULE 0.8 MG PO (08:45)
[2019-10-22] MEDS: SERTRALINE HCL 25 MG TABLET PO (08:45)
[2019-10-22] MEDS: THIAMINE HCL 100 MG TABLET PO (08:45)
[2019-10-22] MEDS: PANTOPRAZOLE SODIUM IV 40 MG VIAL IV PUSH (08:45)
[2019-10-22] MEDS: calcitrioL 0.25 MCG CAPSULE 0.5 MCG PO (08:47)
[2019-10-22] MEDS: CHOLECALCIFEROL 1,000 UNIT TABLET 5000 UNITS PO (08:47)
--- NOTE | 2019-10-22 09:24 | WPDGIPROGNO ---
Progress Note: A&P Additional Plan Patient alert and comfortable this morning. Denies abdominal pain. We discussed findings of esophageal cancer period and implications. Physical exam reveals patient to be alert. Vital signs stable. HEENT exam is anicteric. Lungs are clear. Heart without murmur. Abdomen bowel sounds present soft nontender with no organomegaly. Biopsies of mid esophageal mass consistent with squamous cell carcinoma the esophagus. Impression 1. Squamous cell carcinoma of esophagus. Plan is for continued follow-up on workup by Dr. Faye.. Endoscopic ultrasound will need to be arranged at tertiary care center. PET scan per his instructions period in follow-up for eventual chemo/ radiation and surgery. 2. Alcohol abuse. Patient will need to abstain from alcohol. 3. History of recurrent DVT. Anticoagulation on hold for workup of esophageal mass per Subjective Date/time seen: 10/22/19 09:24 Objective Data Vital Signs Vital Signs: Vital Signs - 24 hr 10/21/19 10:19 10/21/19 12:00 10/21/19 13:22 Temperature 97.6 F 97.4 F L Pulse Rate 76 82 Pulse Rate [Apical] 86 Respiratory Rate 16 18 Blood Pressure 106/65 107/62 105/56 L Pulse Oximetry 98 100 10/21/19 13:38 10/21/19 14:38 10/21/19 15:38 Temperature 97.9 F 98.4 F 98.3 F Pulse Rate 73 80 80 Pulse Rate [Apical] Respiratory Rate 18 18 18 Blood Pressure 113/60 138/70 142/76 H Pulse Oximetry 97 100 100 10/21/19 15:50 10/21/19 16:00 10/21/19 18:00 Temperature 98.6 F 97.8 F Pulse Rate 82 91 Pulse Rate [Apical] 78 Respiratory Rate 18 18 Blood Pressure 142/80 H 147/85 H 145/79 H Pulse Oximetry 100 100 10/21/19 20:00 10/21/19 20:15 10/21/19 22:11 Temperature 98.0 F Pulse Rate 91 80 Pulse Rate [Apical] 91 Respiratory Rate 18 Blood Pressure 147/77 H Pulse Oximetry 98 10/22/19 00:00 10/22/19 02:00 10/22/19 05:24 Temperature 97.0 F L 98.0 F Pulse Rate 76 77 Pulse Rate [Apical] 91 Respiratory Rate 18 18 Blood Pressure 149/84 H 144/76 H Pulse Oximetry 100 99 10/22/19 06:00 10/22/19 08:00 Temperature 98.0 F Pulse Rate 77 Pulse Rate [Apical] 77 Respiratory Rate 18 Blood Pressure 144/76 H 156/90 H Pulse Oximetry 99 Intake/Output Intake/Output: Intake & Output 10/19/19 10/20/19 10/21/19 10/22/19 23:59 23:59 23:59 23:59 Intake Total 478 806 0908 250 Output Total 400 700 800 700 Balance 360 190 880 -450 Meds/Results Medications: Active Medications Generic Name Dose Route Start Last Admin Trade Name Freq PRN Reason Stop Dose Admin Albuterol 2 puff 10/17/19 22:07 Proventil Hfa INHALATION Q6H PRN Shortness Of Breath Or Wheezing Atorvastatin Calcium 10 mg 10/18/19 09:00 10/22/19 08:42 Lipitor PO 10 mg DAILY SHAZIA Administration Calcitriol 0.5 mcg 10/18/19 09:00 10/22/19 08:47 Rocaltrol PO 11/17/19 09:01 0.5 mcg DAILY SHAZIA Administration Dextrose 12.5 gm 10/17/19 13:57 Dextrose 50% Syringe IV PUSH PRN PRN Hypoglycemia Protocol Ferrous Sulfate 324 mg 10/18/19 08:00 10/22/19 08:41 Ferrous Sulfate PO 324 mg DAILY@0800 SHAZIA Administration Fluticasone Propionate 2 spray 10/17/19 22:15 10/21/19 20:15 Flonase 0.05% Nasal [place] NASAL 2 spray HS SHAZIA Administration Folic Acid 1 mg 10/18/19 09:00 10/22/19 08:43 Folic Acid PO 1 mg DAILY SHAZIA Administration Glucagon 1 mg 10/17/19 13:57 Glucagon For Inj IM PRN PRN Hypoglycemia Protocol Glucose 15 gm 10/17/19 13:57 Glutose 15 PO PRN PRN Hypoglycemia Protocol Hydralazine HCl 10 mg 10/20/19 12:34 Apresoline Hcl Inj IV PUSH Q8H PRN Blood Pressure - High Dextrose 1,000 mls @ 100 mls/hr 10/17/19 13:57 Dextrose 5% 1,000 Ml IVPB PRN PRN Hypoglycemia Protocol Levothyroxine Sodium 25 mcg 10/18/19 06:30 10/22/19 06:50 Synthroid PO 25 mcg DAILY@0630 SHAZIA
[2019-10-22 10:12] LABS: Glucose Point of Care 86 (65-105)
--- NOTE | 2019-10-22 10:13 | PM.DS ---
DS: Admitting Diagnosis Admitting Diagnosis Admitting Diagnosis: GI Bleed DS: Discharge Diagnosis Discharge Diagnosis (1) Squamous cell carcinoma of esophagus: Code(s): C15.9 - Malignant neoplasm of esophagus, unspecified Status: Acute Assessment and Plan: EGD on 10/[address] Cerrato revealed mid esophageal ulcerative mass that was malignant appearing; no signs of active bleeding. CT chest shows wall thickening of the mid esophagus, consistent with primary malignancy. Endoscopic Biopsy revealed moderately differentiated squamous cell carcinoma, invading smooth muscle Heme/Onc consulted and appreciate recommendations. Discussed case in detail with Dr. Faye and WAREHOUSE PROCESSOR Prudence and transfused 1 unit pRBC yesterday given symptomatic anemia; H&H relatively stable. Will obtain CBC early next week before his appointment Per Dr. Faye recommendations, will hold Eliquis on discharge and will be reevaluated next week on when to resume this medication. Please see below for IVC filter evaluation Patient to be discharge home with HH therapy. Patient refused SNF Spoke with Dr. Murray, his PCP, prior to discharge to update him on the patient's hospital course. He will be following up as an outpatient as well (2) Heme positive stool: Code(s): R19.5 - Other fecal abnormalities Status: Acute Assessment and Plan: He has been having dark stools approximately 6 months. Dark stool yesterday per patient, none today; he reports this has improved. Patient takes iron pill as well. H&H was low, but stable, yet was symptomatic. 1 u pRBC transfused last night. No signs of active bleeding again today. Hgb 8.9 today Continue Protonix b.i.d. after discharge 1 u pRBC yesterday CBC next week Dr. Cerrato has been consulted and his input is appreciated. (3) Chronic anemia: Code(s): D64.9 - Anemia, unspecified Status: Acute Assessment and Plan: Macrocytic. Hemoglobin and hematocrit are bit lower than what he typically runs. He is on oral iron therapy. Iron stores are adequate. B12 is mildly low and folate is within normal limits. He notes dark stools, but possibly due to iron therapy. Dr. Faye consulted and following. Monitor H&H next week as outpatient; Dr. Faye will follow As above, transfuse 1 u pRBC yesterday 1000 mg IM B12 injection today per Dr. Faye f/u as an outpatient with Dr. Faye (4) Current use of terminal makeup operator anticoagulation: Code(s): Z79.01 - termite control service representative (current) use of anticoagulants Status: Acute Assessment and Plan: He is on Eliquis for DVT of the left lower extremity and left upper extremity. Repeat venous Doppler showed unchanged DVT of left upper and lower extremities. Discussed with Dr. Faye who requested General Surgery consult for evaluation for IVC filter. Discussed in length with Dr. Ball who reviewed the chart and states that these clots appear to be chronic in nature and are stable and that a/c can be discontinued since he has had more than 6 months of therapy; states there is no need for General Surgery consultation at this time for above reason. He also stated that given his jugular thrombosis, patient would possibly need a SVC filter as well, should this be decided by Dr. Faye; this is not performed at this facility and would need to be done at a center with vascular surgery. Patient gives unclear history of how long he has had these clots, but has noted he has been on both either Eliquis or warfarin for about 1 year. Continue to hold Eliquis given Hemoccult-positive stool Will have patient follow up with Dr. Faye's office next week to evaluate for possible resumption of Eliquis in the future for current and possible future clots given his cancer diagnosis putting him at risk for further clotting. Discussed this with HEATH
== END 2019-10-22 15:40 | disposition home health service (06) | DRG 375 ==
LOC: ANHICU 15:46 → ANH3MEDSUR 10-18 06:39 → ANHICU 10-26 13:04
PROVIDERS: Internal Medicine Gastroenterology; Physician Assistant; Admitting Provider Family Medicine; PCP Internal Medicine; Visit Provider Physician Assistant
PROC: 0DJ08ZZ Inspection of Upper Intestinal Tract, Via Natural or Artificial Opening Endoscopic (ICD-10-PCS; CPT 43235; principal; 2019-10-19 12:30)
DX: C15.9 Malignant neoplasm of esophagus, unspecified (principal); R45.851 Suicidal ideations; F33.9 Major depressive disorder, recurrent, unspecified; E88.09 Other disorders of plasma-protein metabolism, not elsewhere classified; E87.8 Other disorders of electrolyte and fluid balance, not elsewhere classified; R19.5 Other fecal abnormalities; K31.89 Other diseases of stomach and duodenum; K57.30 Diverticulosis of large intestine without perforation or abscess without bleeding; K64.8 Other hemorrhoids; K63.89 Other specified diseases of intestine; D53.9 Nutritional anemia, unspecified; F17.210 Nicotine dependence, cigarettes, uncomplicated; I25.10 Atherosclerotic heart disease of native coronary artery without angina pectoris; R82.71 Bacteriuria; R79.89 Other specified abnormal findings of blood chemistry; E89.0 Postprocedural hypothyroidism; I10 Essential (primary) hypertension; G62.1 Alcoholic polyneuropathy; F10.10 Alcohol abuse, uncomplicated; N40.0 Benign prostatic hyperplasia without lower urinary tract symptoms; I25.2 Old myocardial infarction; Z79.01 Long term (current) use of anticoagulants; Z79.899 Other long term (current) drug therapy; Z85.850 Personal history of malignant neoplasm of thyroid; Z86.718 Personal history of other venous thrombosis and embolism; Z87.11 Personal history of peptic ulcer disease; Z90.3 Acquired absence of stomach [part of]
CPT/HCPCS: 36415; 36430; 71260; 80053; 82274; 82607; 82728; 82746; 83036; 83540; 83550; 83605; 83735; 84100; 84443; 84466; 85014; 85018; 85025; 85027; 85046; 85610; 85730; 86140; 86850; 86900; 86901; 86923; 87040; 88305; 93970; 97110; 97116; 97161; 97165; 97530; 97535; A9270; C9113; J2704; J3411; J3420; J3475; J3480; J7120; P9016; Q9967

== ENCOUNTER 2019-10-26 13:07 | Outpatient (CLI) | payer MEDICARE, SELFPAY ==
[2019-10-26 13:29] LABS: Basophils Absolute Auto 0.03 K/mm3 (0.00-0.10); Basophils Percent Auto 0.5 % (0.0-1.0); Eosinophils Absolute Auto 0.11 K/mm3 (0.02-0.50); Eosinophils Percent Auto 1.8 % (1.0-6.0); Hematocrit 33.9 % (40.0-54.0); Hemoglobin 10.8 g/dL (14.0-18.0); Immature Granulocyte Absolute 0.01 K/mm3 (0.00-0.00); Immature Granulocyte Percent A 0.2 % (0.0-0.0); Lymphocytes Absolute Auto 1.88 K/mm3 (1.10-4.50); Lymphocytes Percent Auto 30.3 % (18.0-42.0); Mean Corpuscular HGB Conc 31.9 g/dL (32.0-36.0); Mean Corpuscular Hemoglobin 33.8 pg (27.0-31.0); Mean Corpuscular Volume 105.9 fL (78.0-102.0); Mean Platelet Volume 10.3 fl (8.7-11.0); Monocytes Absolute Auto 0.73 K/mm3 (0.10-0.90); Monocytes Percent Auto 11.8 % (2.0-11.0); Neutrophils Absolute Auto 3.5 K/mm3 (1.7-7.2); Neutrophils Percent Auto 55.4 % (50.0-70.0); Platelet Count Result 151 K/mm3 (150-420); Red Cell Distribution Width 18.5 % (11.6-14.4); White Blood Count 6.2 K/mm3 (4.8-10.8)
[2019-10-26 14:15] LABS: Alanine Aminotransferase 15 U/L (16-63); Albumin Level 2.3 g/dL (3.4-5.0); Alkaline Phosphatase 92 U/L (46-116); Anion Gap 9 mmol/L (8-16); Aspartate Amino Transferase 15 U/L (15-37); Bilirubin,Total 0.4 mg/dL (0.00-1.00); Blood Urea Nitrogen 7 mg/dL (7-18); Calcium 8.1 mg/dL (8.5-10.1); Carbon Dioxide 25 mmol/L (21-32); Chloride 104 mmol/L (98-108); Estimated Glomerular Filt Rate > 60; Glucose 97 mg/dL (70-99); Osmolality Calculated 284 mOsm/kg (285-295); Sodium 138 mmol/L (136-145); Total Protein 5.8 g/dL (6.4-8.2)
== END 2019-10-26 13:08 | disposition home or self-care (01) ==
PROVIDERS: PCP Internal Medicine; Visit Provider Physician Assistant
DX: D64.9 Anemia, unspecified (principal); R19.5 Other fecal abnormalities; E87.5 Hyperkalemia; E88.09 Other disorders of plasma-protein metabolism, not elsewhere classified
CPT/HCPCS: 36415; 80053; 85025

== ENCOUNTER 2019-11-02 11:00 | Outpatient (CLI) | payer MEDICARE, SELFPAY ==
[2019-11-02 11:33] LABS: Hematocrit 34.6 % (42.0-52.0); Hemoglobin 11.2 g/dL (14.0-18.0); Mean Corpuscular HGB Conc 32.4 g/dl (32-36); Mean Corpuscular Hemoglobin 32.9 pg (26-34); Mean Corpuscular Volume 101.8 fl (80-100); Platelet Count Result 375 k/mm3 (150-375); Red Cell Distribution Width 18.6 % (11.5-14.5); White Blood Count 11.7 K/mm3 (4.5-10.0)
[2019-11-02 12:26] LABS: Iron 110 ug/dL (49-181)
[2019-11-02 12:27] LABS: Anion Gap 7 mmol/L (8-16); Blood Urea Nitrogen 8 mg/dL (9-20); Carbon Dioxide 22 mmol/L (22-30); Chloride 104 mmol/L (98-107); Estimated Glomerular Filt Rate > 60; Glucose 94 mg/dL (75-110); Potassium 4.9 mmol/L (3.4-5.0); Sodium 133 mmol/L (137-145)
[2019-11-02 12:35] LABS: Percent Iron Saturation 56 % (20-50)
== END 2019-11-02 11:01 | disposition home or self-care (01) ==
PROVIDERS: PCP Internal Medicine; Visit Provider Internal Medicine Hematology & Oncology
DX: C15.4 Malignant neoplasm of middle third of esophagus (principal)
CPT/HCPCS: 36415; 80048; 82728; 83540; 83550; 85027

== ENCOUNTER 2019-11-06 19:14 | Inpatient (IN) | payer MEDICARE, MEDICAID, SELFPAY ==
--- NOTE | ~2019-11-06 | CT_ITS ---
EXAMINATION: CT abdomen pelvis w con INDICATION: Ileus and left-sided abdominal pain TECHNIQUE: Computed tomographic images of the abdomen and pelvis were obtained after the administrati on of 100 cc of Omnipaque 350 intravenous contrast. The dose-length product (DLP) was 908.54 mGy-cm. Automated exposure control and iterative reconstruction technique were employed. COMPARISON: 11/07/2019 FINDINGS: Bilateral lower lobe pneumonia, right greater than left, persists with slight interval impr ovement. There are small pleural effusions. The heart size is normal. There are surgical changes in t he stomach. The gallbladder is surgically absent. The liver, spleen, pancreas, and adrenal glands are normal. There is a nonobstructing 8 mm stone of left kidney with associated cortical scarring. The r ight kidney is unremarkable. There is calcified atherosclerosis of the aorta and many of the other ar teries. No pathologically enlarged abdominal or pelvic lymph nodes are identified. There is no free i ntraperitoneal gas or evidence of bowel obstruction. Colonic diverticulosis is present without eviden ce of diverticulitis. The appendix is normal. There are fractures of the left eighth through 12th rib s as well as fractures of the left L1, L2, and L3 transverse processes. IMPRESSION: 1. No dilated loops of bowel. 2. Multiple left-sided rib and transverse process fractures likely accounting for left-sided abdomina l pain. 3. Slight improvement in bilateral lower lobe pneumonia, right greater than left. Reviewed, dictated and finalized at location A. IMPRESSION: 1. No dilated loops of bowel. 2. Multiple left-sided rib and transverse process fractures likely accounting f or left-sided abdominal pain. 3. Slight improvement in bilateral lower lobe pneumonia, right greater than lef t.
--- NOTE | ~2019-11-06 | CT_ITS ---
EXAMINATION: CT chest w con DATE: 11/06/2019 20:47 INDICATION: Chest pain. Esophageal cancer. TECHNIQUE: Computed tomography (CT) of the chest was performed with 75 cc Omnipaque 350 intravenous c ontrast. The dose-length product was 527.18 mGy-cm. Automated exposure control and iterative reconstr uction technique were employed. COMPARISON: CT dated 10/20/2019 FINDINGS: Interval development of extensive reticulonodular densities throughout the right lower lobe and to a lesser degree right upper lobe. There is more focal consolidation in the right lower lobe. Heart size normal. No significant pleural or pericardial effusion. Small hiatal hernia. There is foca l mucosal thickening of the midesophagus which may correspond to the patient's known esophageal cance r. This is best seen on axial images 60-66. No thoracic lymphadenopathy. There is a nonobstructing le ft renal stone measuring 6 mm. There is fatty infiltration of the liver. There is chronic fracture de formity of the right humeral neck. Chronic wedge compression deformities of T7, T8 and L1. Moderate t horacic spondylosis. IMPRESSION: 1. Interval development of extensive reticulonodular infiltrates of the right lower lobe with more ex tensive focal consolidation in the right lower lobe peripherally, most likely pneumonia. Metastatic d isease not excluded given the clinical history. 2: Focal thickening of the midesophagus, suspicious for patient's known esophageal carcinoma. 3: Nonobstructing left nephrolithiasis. Reviewed, dictated and finalized at location A. IMPRESSION: 1. Interval development of extensive reticulonodular infiltrates of the right l ower lobe with more extensive focal consolidation in the right lower lobe perip herally, most likely pneumonia. Metastatic disease not excluded given the clini venecia history. 2: Focal thickening of the midesophagus, suspicious for patient's known esopha geal carcinoma. 3: Nonobstructing left nephrolithiasis.
--- NOTE | ~2019-11-06 | CT_ITS ---
EXAMINATION: CT abdomen pelvis w con DATE: 11/10/2019 09:44 INDICATION: Abdominal pain. Blood in stool. TECHNIQUE: Computed tomography (CT) of the abdomen and pelvis was performed with 100 mL Omnipaque 350 intravenous contrast. Automated exposure control and iterative reconstruction technique were employe d. The dose-length product was 1187.71 mGy-cm. COMPARISON: CT abdomen and pelvis 11/09/2019 FINDINGS: The visualized portions of the lung bases demonstrate small pleural effusions and mild atel ectasis. There are tree-in-bud opacities and centrilobular nodules in right middle lobe and right low er lobe, consistent with pneumonia. The heart size is normal. There is a small pericardial effusion. There are coronary artery calcifications. There is a small sliding hiatal hernia. The liver and splee n are normal. There are changes of cholecystectomy. There is a calcification in the pancreas, consist ent with chronic pancreatitis. The adrenal glands are normal. There is cortical thinning of the kidne ys. There is a 5 mm cyst in right kidney. There is a 6 mm stone versus parenchymal calcification in l eft kidney. There is diverticulosis of the colon without evidence of diverticulitis. The appendix is normal. There are no dilated loops of bowel. There are no pathologically enlarged lymph nodes. There is no free intraperitoneal fluid. There are old healed right rib fractures. There are acute fractures of left seventh-12th ribs. IMPRESSION: 1. Stable pneumonia involving right middle lobe and right lower lobe. 2. Stable small pleural effusions. 3. Stable small pericardial effusion. 4. Multiple acute left rib fractures again seen. Reviewed, dictated and finalized at location A.
--- NOTE | ~2019-11-06 | CT_ITS ---
EXAMINATION: CT abdomen pelvis wo con DATE: 11/07/2019 11:27 INDICATION: Status post fall. Abdomen pain. TECHNIQUE: Computed tomography (CT) of the abdomen and pelvis was performed with 100 cc Omnipaque 350 intravenous contrast. The dose-length product was 938.63 mGy-cm. Automated exposure control and iter ative reconstruction technique were employed. COMPARISON: CT dated 09/13/2019 FINDINGS: Extensive reticulonodular densities of the right middle and lower lobes with increasing con solidation, consistent with pneumonia. Small left pleural effusion. Moderate atherosclerosis. There is fluid throughout the small bowel with multiple air-fluid levels in the small bowel and colon , likely ileus. There are changes of previous ventral abdominal wall hernia repair. There is recurren t hernia in the mid abdomen containing a small segment of nonobstructed colon. Bladder is decompresse d limiting evaluation. The liver, spleen, pancreas, adrenal glands are unremarkable. There is residua l contrast in the kidneys limiting evaluation for stones. No hydronephrosis. No lymphadenopathy. Ther e are extensive vas deferens calcifications. Stable multiple chronic thoracic and lumbar compression fractures. No acute osseous abnormality. There are changes of gastric bypass surgery. Small hiatal he rnia. IMPRESSION: 1. Progression of extensive reticulonodular and airspace consolidation of the right middle and lower lobe, compatible with pneumonia. 2: Small left pleural effusion. 3: Ileus. 4: Small ventral hernia containing nonobstructed segment of colon. Reviewed, dictated and finalized at location A. IMPRESSION: 1. Progression of extensive reticulonodular and airspace consolidation of the r ight middle and lower lobe, compatible with pneumonia. 2: Small left pleural effusion. 3: Ileus. 4: Small ventral hernia containing nonobstructed segment of colon.
[2019-11-06 19:15] VITALS: BP 107/74; PULSE 104; RESP 20; TEMP 37.2; O2SAT 90
--- NOTE | 2019-11-06 19:33 | ED.WEAKNESS ---
HPI - Weakness General Chief complaint: Weakness Stated complaint: AMB Time Seen by Provider: 11/06/19 19:33 Source: patient Mode of arrival: ambulatory Limitations: no limitations History of Present Illness HPI Narrative: 59-year-old man with a history anemia, esophageal cancer recently diagnosed, alcoholism and chronic DVTs brought to the emergency department from the [facility] where he was thought to be ill-appearing and weak. Patient states that he has chest pain that is worse with movement, palpation and taking a deep breath the been present for the last couple of days. He complains that he fell twice in the last few days. He denies hitting his head, nausea, vomiting, diarrhea, dysuria or abdominal pain. He was discharged from [facility] on October 21. During that stay he was discovered to have squamous cell carcinoma during a workup for anemia and heme-positive stools. he has been drinking. MD Complaint: generalized weakness Onset (ago): day(s) Duration: constant Location: generalized Migration: none Severity: moderate Relieving factors: none Exacerbating factors: none Context: recent illness, trauma/injury and depression Associated symptoms: chest pain and dark stools Related Data Home Medications Medication Instructions Recorded Confirmed atorvastatin 10 mg PO DAILY 06/30/19 11/06/19 calcitriol 0.5 mcg PO DAILY 06/30/19 11/06/19 tamsulosin 0.8 mg PO DAILY 06/30/19 11/06/19 Allergies Allergy/AdvReac Type Severity Reaction Status Date / Time No Known Allergies Allergy Unverified 09/06/16 20:58 Review of Systems Constitutional: Constitutional: Denies chills and Denies fever(s) Eyes: Eyes: Denies change in vision and Denies photophobia ENT: Denies dysphagia, Denies nasal congestion and Denies sore throat Cardiovascular: Cardiovascular: Reports as per HPI, Reports chest pain and Denies radiating jaw, neck or arm pain Respiratory: Respiratory: Denies cough, Denies dyspnea and Denies wheezing Gastrointestinal: Gastrointestinal: Denies abdominal pain, Denies nausea and Denies vomiting Genitourinary: Genitourinary: Denies hematuria, Denies dysuria and Denies urinary frequency Musculoskeletal: Musculoskeletal: Denies arthralgias and Denies joint swelling Integumentary/Breasts: Skin/Breast: Denies pruritus, Denies erythema and Denies rash Neurologic: Reports as per HPI, Denies vertigo, Denies dizziness, Denies syncope, Denies headache(s), Denies focal weakness, Denies numbness and Reports weakness Psychiatric: Psychiatric: Reports depression Hematologic/Lymphatic: Hematologic/Lymphatic: Denies easy bleeding and Denies easy bruising Allergic/Immunologic: Allergic/Immunologic: Denies lip swelling, Denies throat swelling and Denies wheezing PMFSH Past Medical History Medical History Alcohol abuse Anxiety Benign prostatic hyperplasia Chronic anemia Compression fracture Including thoracic and lumbar compression fractures. Current use of terminal operator anticoagulation For DVTs of the upper and lower extremities detailed below. Deep venous thrombosis Left femoral vein, left internal jugular, and let axillary veins noted on ultrasound in May 2019. Hepatic steatosis Hypertension Kidney stones Major depression Nicotine use disorder Peptic ulcer disease Remote history of perforated peptic ulcer status post partial gastrectomy. Peripheral neuropathy Substance abuse Thyroid cancer Status post partial thyroidectomy. Previously on levothyroxine. Type 2 GA (myocardial infarction) (~08/2016) No ischemic cardiac evaluation was undertaken. Surgical History Surgical History History of cholecystectomy History of hernia repair Multiple ventral hernia repairs including incisional hernia repair, some with mesh. History of partial gastrectomy For perforated peptic ulcer. History of partial thyro
--- NOTE | 2019-11-06 19:52 | ECG_ITS ---
Measurements Intervals [place] Rate: 104 P: 28 RI: 152 QRS: 32 QRSD: 85 T: 30 QT: 342 QTc: 451 Interpretive Statements SINUS TACHYCARDIA EARLY PRECORDIAL R/S TRANSITION BORDERLINE ST ABNORMALITY- ANTERIOR LEADS ABNORMAL ECG Electronically Signed On 11-07-2019 7:46:53 CDT by Cruz Pickard D.O.
[2019-11-06 20:31] LABS: Hematocrit 34.4 % (40.0-54.0); Hemoglobin 11.1 g/dL (14.0-18.0); Mean Corpuscular HGB Conc 32.3 g/dL (32.0-36.0); Mean Corpuscular Hemoglobin 33.5 pg (27.0-31.0); Mean Corpuscular Volume 103.9 fL (78.0-102.0); Mean Platelet Volume 9.1 fl (8.7-11.0); Platelet Count Result 166 K/mm3 (150-420); Red Blood Count 3.31 M/mm3 (4.70-6.10); Red Cell Distribution Width 19.9 % (11.6-14.4); White Blood Count 9.3 K/mm3 (4.8-10.8)
[2019-11-06 20:46] LABS: INR 1.2; Partial Thromboplastin Time 33.1 SEC (22.3-31.6); Prothrombin Time 12.7 Seconds (9.64-11.0)
[2019-11-06 20:49] LABS: BNP 109 pg/mL (0-100)
[2019-11-06 20:51] LABS: Acetaminophen 22 ug/mL (10-30); Alanine Aminotransferase 23 U/L (16-63); Albumin Level 1.7 g/dL (3.4-5.0); Alkaline Phosphatase 224 U/L (46-116); Ammonia 28 umol/L (11-32); Anion Gap 14 mmol/L (8-16); Aspartate Amino Transferase 33 U/L (15-37); Bilirubin,Total 0.8 mg/dL (0.00-1.00); Blood Urea Nitrogen 10 mg/dL (7-18); Calcium 7.4 mg/dL (8.5-10.1); Carbon Dioxide 19 mmol/L (21-32); Chloride 104 mmol/L (98-108); Creatine Kinase 14 U/L (39-308); Estimated Glomerular Filt Rate > 60; Ethanol 112 mg/dL (0-6); Glucose 161 mg/dL (70-99); Osmolality Calculated 286 mOsm/kg (285-295); Potassium 4.3 mmol/L (3.5-5.1); Salicylate 2.8 mg/dL (2.8-20.0); Sodium 137 mmol/L (136-145); Total Protein 5.2 g/dL (6.4-8.2)
[2019-11-06 20:54] LABS: Band Neutrophils Percent 5 % (0-6); Basophils Absolute Manual 0.09 K/mm3 (0-0.1); Basophils Percent Manual 1 % (0-1); Eosinophils Percent Manual 0 % (1-6); Lymphocytes Absolute Manual 0.37 K/mm3 (1.1-4.5); Lymphocytes Percent Manual 4 % (18-44); Metamyelocytes Percent 1 %; Monocytes Absolute Manual 0.37 K/mm3 (0.1-0.90); Monocytes Percent Manual 4 % (3-9); Neutrophils Absolute Manual 8.37 K/mm3 (1.3-6.7); Neutrophils Percent Manual 85 % (46-73); Total Cells Counted 100
[2019-11-06 20:55] LABS: Lactic Acid 6.5 mmol/L (0.4-2.0); Platelet Estimate Adequate (Adequate); Troponin I < 0.02 ng/mL (0.00-0.056)
[2019-11-06 20:56] LABS: Lipase < 10 U/L (73-393)
[2019-11-06 20:57] LABS: CRP 14.1 mg/dL (0.0-0.9)
[2019-11-06 20:58] VITALS: BP 128/67; PULSE 107; RESP 20; O2SAT 93
[2019-11-06 21:58] VITALS: BP 117/69; PULSE 109; RESP 20; O2SAT 98
[2019-11-06 22:20] VITALS: BMI 27.6
--- NOTE | 2019-11-06 22:43 | ADMGEN ---
This patient, Calixto Lyons, was admitted to 2nd Floor Room 207-2. Patient/family oriented to hospital policies and general routines including ID bracelet, bed and alarms, visiting hours, pain management, procedures, bathroom and other care routines, personal items, smoking policy, room service/diet, and visiting hours. Valuables list has been completed. phone, glasses, shirt, pants, shoes, watch, wallet ( placed in med room in bag with pt label) Information on how to activate the Rapid Response Team has been discussed. Patient/Family are encouraged to report perceived risks to care and to ask questions if they do not understand what they are told or what they should do.
[2019-11-06 23:03] LABS: Add Urine Microscopic? YES; Appearance Urine Clear (Clear); Bilirubin Urine 1+ (Negative); Blood Urine Negative (Negative); Color Urine Amber (Yellow); Glucose Urine UA Negative (Negative); Ketones Urine Negative (Negative); Leukocyte Esterase Ur Negative (Negative); Nitrate Urine Negative (Negative); Protein Urine Negative (Negative); pH Urine 5.5 (5.0-8.0)
[2019-11-06 23:08] LABS: RBC Urine 0-2 /hpf (0-2)
[2019-11-06 23:09] LABS: Squamous Epithelial Cell Urine None seen /hpf (Few)
[2019-11-06 23:10] LABS: Hyaline Casts Urine 50+ /lpf
[2019-11-07] VITALS (10 sets, daily range): BP systolic 123–180; BP diastolic 69–108; PULSE 83–120; RESP 18–22; TEMP 36.3–36.9; O2SAT 89–98
[2019-11-07] MEDS: traZODone HCL 50 MG TABLET 100 MG PO ×2 (01:41→23:38)
[2019-11-07] MEDS: SODIUM CHLORIDE 0.9% IV 500 ML 999 ML IV CONT (01:48)
--- NOTE | 2019-11-07 02:00 | PC.NURSE ---
[facility] called to clarify orders; Dr. Fofana notified of medication order clarification. New orders received and noted.
[2019-11-07] MEDS: chlordiazePOXIDE 10 MG CAPSULE PO ×3 (02:26→18:46)
--- NOTE | 2019-11-07 02:41 | PC.NURSE ---
500ml bolus NS ended @ this time.
[2019-11-07] MEDS: metroNIDAZOLE 500 MG/ISO 100ML 500 MG/100 ML BAG 100 MG IVPB ×3 (03:21→16:45)
--- NOTE | 2019-11-07 04:14 | PC.NURSE ---
#24 gauge catheter started to the right thumb.
[2019-11-07] MEDS: SODIUM CHLORIDE 0.9% IV 1,000 ML 100 ML IV CONT ×2 (05:08→16:13)
[2019-11-07 05:20] LABS: Hematocrit 38.2 % (40.0-54.0); Mean Corpuscular HGB Conc 31.4 g/dL (32.0-36.0); Mean Corpuscular Volume 104.9 fL (78.0-102.0); Mean Platelet Volume 9.4 fl (8.7-11.0); Platelet Count Result 153 K/mm3 (150-420); Red Blood Count 3.64 M/mm3 (4.70-6.10); White Blood Count 9.7 K/mm3 (4.8-10.8)
--- NOTE | 2019-11-07 05:20 | PC.NURSE ---
Urine is dk paco.
[2019-11-07 05:40] LABS: Lactic Acid 3.7 mmol/L (0.4-2.0)
[2019-11-07 05:44] LABS: Band Neutrophils Percent 1 % (0-6); Basophils Percent Manual 0 % (0-1); Eosinophils Percent Manual 0 % (1-6); Lymphocytes Absolute Manual 0.48 K/mm3 (1.1-4.5); Lymphocytes Percent Manual 5 % (18-44); Monocytes Absolute Manual 0.29 K/mm3 (0.1-0.90); Monocytes Percent Manual 3 % (3-9); Neutrophils Absolute Manual 8.92 K/mm3 (1.3-6.7); Neutrophils Percent Manual 91 % (46-73); Platelet Estimate Adequate (Adequate)
[2019-11-07 05:53] LABS: Alanine Aminotransferase 22 U/L (16-63); Albumin Level 1.8 g/dL (3.4-5.0); Alkaline Phosphatase 237 U/L (46-116); Anion Gap 10 mmol/L (8-16); Aspartate Amino Transferase 28 U/L (15-37); Bilirubin,Total 1.3 mg/dL (0.00-1.00); Blood Urea Nitrogen 10 mg/dL (7-18); Calcium 7.8 mg/dL (8.5-10.1); Carbon Dioxide 24 mmol/L (21-32); Chloride 105 mmol/L (98-108); Estimated CRCL calculation 76 ml/min; Estimated Glomerular Filt Rate > 60; Glucose 100 mg/dL (70-99); Osmolality Calculated 287 mOsm/kg (285-295); Potassium 4.7 mmol/L (3.5-5.1); Sodium 139 mmol/L (136-145); Total Protein 5.3 g/dL (6.4-8.2)
[2019-11-07] MEDS: LEVOTHYROXINE SODIUM 25 MCG TABLET PO (05:53)
[2019-11-07 06:48] LABS: Troponin I < 0.02 ng/mL (0.00-0.056)
--- NOTE | 2019-11-07 09:30 | PC.NURSE ---
complaints of sob feeling and chest pressure, oxygen applied at 2 L NC, noted ox sat to be 92-94% room air
[2019-11-07] MEDS: CHOLECALCIFEROL 1,000 UNITS TABLET 5000 UNITS PO (09:32)
[2019-11-07] MEDS: TAMSULOSIN HCL 0.4 MG CAPSULE 0.8 MG PO (09:33)
[2019-11-07] MEDS: calcitrioL 0.25 MCG CAPSULE 0.5 MCG PO (09:33)
[2019-11-07] MEDS: MAGNESIUM OXIDE 400 MG TABLET PO (09:33)
[2019-11-07] MEDS: ATORVASTATIN 10 MG TABLET PO (09:34)
[2019-11-07] MEDS: POTASSIUM/PHOSPHORUS/SODIUM 1.5 GM PACKET 1 PACKET PO ×2 (09:34→16:46)
[2019-11-07] MEDS: FERROUS SULFATE 324 MG TABLET PO (09:34)
[2019-11-07] MEDS: METOPROLOL TARTRATE 25 MG TABLET PO ×2 (09:34→16:46)
[2019-11-07 10:46] LABS: Troponin I 0.02 ng/mL (0.00-0.056)
[2019-11-07 10:52] LABS: BNP 118 pg/mL (0-100)
--- NOTE | 2019-11-07 11:33 | PM.IMHP ---
H&P: HPI History of Present Illness Date/Time: 11/07/19 11:33 <JIMENA Holguin - Last Filed: 11/07/19 13:01> Chief complaint: AMB <JIMENA Holguin - Last Filed: 11/07/19 13:01> Narrative: Calixto Lyons is a 59 year old male that presented to the ED yesterday with complaints of chest pain and shortness of breath that presented to the ED yesterday with complaints of chest pain and shortness of breath.. Patient has a past medical history of patient has a past medical history of alcohol abuse, anxiety, BPH, chronic anemia, compression fractions, , DVT, h DVT, hepatic steatosis,, hypertension, kidney stones, major depression, hypertension, kidney stones, major depression, peptic ulcer, peripheral neuropathy, substance abuse, history of AL and newly diagnosed esophageal cancer. Patient was recently admitted here on 10/16/2019 for suicidal ideations and to rule out a UTI. He was transferred to [facility] on 10/17/2019 for positive Hemoccult. GI was consulted EGD was completed on 10/19/2019. The EGD indicated diverticulosis without perforation or abscess without bleeding and internal hemorrhoids there was also a esophageal mass identified with the EGD. It has since been confirmed that the patient has esophageal cancer. Vital signs 97.9, 120, 92% on 2 L nasal cannula, 22, 174/98 patient is a frequent flyer to this hospital and has been admitted multiple times post fall after consuming alcohol. This admission patient was at a tavern with that noted that the patient looked ill. EMS was called and patient was transferred to our ED. Patient did complain of shortness of breath and chest pain today. Patient EKG did indicate sinus tach with a heart rate of 104 on admission, his hemoglobin hematocrit was 11.1 and 34.4, his lactic acid was 6.5, his alkaline phosphatase was 224, his CRP was 114.1, his BNP was 109, his UA did show WBCs, his alcohol level was 112, troponin negative x3. His CT of the chest indicated pneumonia and esophageal carcinoma. UA and blood cultures are pending. Patient is being admitted for weakness and pneumonia. Patient denies any nausea ,vomiting ,diarrhea, hematochezia, dizziness, or lightheadness. Patient does continue to complain of chest pain shortness of breath with pain to entire left side of his body including left side of his abdomen due to multiple falls. <JIMENA Holguin - Last Filed: 11/07/19 13:01> Review of Systems Review of Systems: All systems reviewed & are unremarkable except as noted in HPI and below (10 point system reviewed) <JIMENA Holguin - Last Filed: 11/07/19 13:01> [facility] Past Medical History Medical History: Medical History Alcohol abuse Anxiety Benign prostatic hyperplasia Chronic anemia Compression fracture Including thoracic and lumbar compression fractures. 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 Deep venous thrombosis Left femoral vein, left internal jugular, and let axillary veins noted on ultrasound in May 2019. Hepatic steatosis Hypertension Kidney stones Major depression Nicotine use disorder Peptic ulcer disease Remote history of perforated peptic ulcer status post partial gastrectomy. Peripheral neuropathy Substance abuse Thyroid cancer Status post partial thyroidectomy. Previously on levothyroxine. Type 2 AL (myocardial infarction) (~08/2016) No ischemic cardiac evaluation was undertaken. <JIMENA Holguin - Last Filed: 11/07/19 13:01> Surgical History Surgical History: Surgical History History of cholecystectomy History of hernia repair Multiple ventral hernia repairs including incisional hernia repair, some with mesh. History of partial gastrectomy For perforated peptic ulcer. History of partial thyroidectomy For thyroid cancer.
--- NOTE | 2019-11-07 13:47 | PC.NURSE ---
responded to possible lead off and patient lethargic, oxygen level 89% room air, placed oxygen back on patient, lead wires checked and sinus tach noted 110's, inc of urine, managed to get patient to agree to taking off pants and noted blister area to groin and scrotum, cleansed and barrier cream applied, patient told to call when need to use urinal, vitals taken and hospitalist notified
--- NOTE | 2019-11-07 18:12 | PC.NURSE ---
Refused dinner, no appetite, takes fluids sparingly, normal saline infusing at 100ml an hour, telemetry SR 80-90's
[2019-11-07] MEDS: FLUTICASONE PROPIONATE 0.05% NA SPR 16 GM BTL (*BKC) 2 SPRAY NASAL (21:22)
[2019-11-07 21:32] LABS: Anion Gap 5 mmol/L (8-16); Blood Urea Nitrogen 14 mg/dL (7-18); Calcium 7.3 mg/dL (8.5-10.1); Carbon Dioxide 25 mmol/L (21-32); Chloride 108 mmol/L (98-108); Estimated CRCL calculation 91 ml/min; Estimated Glomerular Filt Rate > 60; Glucose 111 mg/dL (70-99); Osmolality Calculated 287 mOsm/kg (285-295); Potassium 4.7 mmol/L (3.5-5.1); Sodium 138 mmol/L (136-145)
[2019-11-07 21:35] LABS: BNP 314 pg/mL (0-100)
--- NOTE | 2019-11-07 21:49 | PC.NURSE ---
notified that BNP has kirstin to 314. New order received to stop fluids and recheck in the morning.
[2019-11-08] VITALS (10 sets, daily range): BP systolic 138–168; BP diastolic 75–96; PULSE 75–99; RESP 18–20; TEMP 36.2–36.8; O2SAT 93–98
[2019-11-08] MEDS: metroNIDAZOLE 500 MG/ISO 100ML 500 MG/100 ML BAG 100 MG IVPB ×3 (00:13→17:24)
[2019-11-08] MEDS: chlordiazePOXIDE 10 MG CAPSULE PO ×2 (04:58→21:10)
[2019-11-08] MEDS: LEVOTHYROXINE SODIUM 25 MCG TABLET PO (05:38)
[2019-11-08 06:50] LABS: Hematocrit 30.8 % (40.0-54.0); Hemoglobin 9.6 g/dL (14.0-18.0); Mean Corpuscular HGB Conc 31.2 g/dL (32.0-36.0); Mean Corpuscular Hemoglobin 33.4 pg (27.0-31.0); Mean Corpuscular Volume 107.3 fL (78.0-102.0); Mean Platelet Volume 9.8 fl (8.7-11.0); Platelet Count Result 117 K/mm3 (150-420); Red Blood Count 2.87 M/mm3 (4.70-6.10); Red Cell Distribution Width 20.5 % (11.6-14.4); White Blood Count 7.9 K/mm3 (4.8-10.8)
[2019-11-08 07:05] LABS: Lactic Acid 0.9 mmol/L (0.4-2.0)
[2019-11-08 07:12] LABS: Alanine Aminotransferase 13 U/L (16-63); Albumin Level 1.4 g/dL (3.4-5.0); Alkaline Phosphatase 153 U/L (46-116); Anion Gap 7 mmol/L (8-16); Aspartate Amino Transferase 17 U/L (15-37); Bilirubin,Total 0.6 mg/dL (0.00-1.00); Blood Urea Nitrogen 15 mg/dL (7-18); Calcium 7.3 mg/dL (8.5-10.1); Carbon Dioxide 24 mmol/L (21-32); Chloride 107 mmol/L (98-108); Creatine Kinase 32 U/L (39-308); Estimated CRCL calculation 101 ml/min; Estimated Glomerular Filt Rate > 60; Glucose 101 mg/dL (70-99); Magnesium 1.7 mg/dL (1.8-2.4); Osmolality Calculated 286 mOsm/kg (285-295); Potassium 4.9 mmol/L (3.5-5.1); Sodium 138 mmol/L (136-145); Total Protein 4.5 g/dL (6.4-8.2)
[2019-11-08 07:26] LABS: CRP 16.4 mg/dL (0.0-0.9)
[2019-11-08 08:42] LABS: BNP 299 pg/mL (0-100)
[2019-11-08] MEDS: CHOLECALCIFEROL 1,000 UNITS TABLET 5000 UNITS PO (09:39)
[2019-11-08] MEDS: calcitrioL 0.25 MCG CAPSULE 0.5 MCG PO (09:39)
[2019-11-08] MEDS: FUROSEMIDE INJ 40 MG/4 ML VIAL 20 MG IV PUSH (09:39)
[2019-11-08] MEDS: METOPROLOL TARTRATE 25 MG TABLET PO ×2 (09:40→17:24)
[2019-11-08] MEDS: ASPIRIN 325 MG ENTERIC TABLET PO (09:40)
[2019-11-08] MEDS: TAMSULOSIN HCL 0.4 MG CAPSULE 0.8 MG PO (09:40)
[2019-11-08] MEDS: FERROUS SULFATE 324 MG TABLET PO (09:40)
[2019-11-08] MEDS: MAGNESIUM OXIDE 400 MG TABLET PO (09:40)
[2019-11-08] MEDS: POTASSIUM/PHOSPHORUS/SODIUM 1.5 GM PACKET 1 PACKET PO ×2 (09:41→17:23)
[2019-11-08] MEDS: ATORVASTATIN 10 MG TABLET PO (09:43)
[2019-11-08] MEDS: ACETAMINOPHEN 500 MG TABLET 1000 MG PO (09:56)
[2019-11-08] MEDS: MAGNESIUM SULF 2 GM/WATER 50ML 2 GM/50 ML BAG IVPB (10:53)
--- NOTE | 2019-11-08 11:02 | P.PN_ITS ---
Progress Note: A&P Assessment and Plan (1) RLL pneumonia: Qualifiers: Pneumonia type: due to unspecified organism Qualified Code(s): J18.9 - Pneumonia, unspecified organism Code(s): J18.9 - Pneumonia, unspecified organism Status: Acute Assessment and Plan: * Imaging indicates extensive reticulonodular infiltrates of the right lower lobe with more extensive focal consolidation in the right lower lobe peripherally, most likely pneumonia. Metastatic disease not excluded given the clinical history. * Continue Rocephin 1 g and Flagyl day 2 * Continue oxygen as needed * Continue inhalers * WBCs within normal limits * Patient afebrile * Started Solu-Medrol (2) Anemia: Qualifiers: Anemia type: unspecified type Qualified Code(s): D64.9 - Anemia, unspecified Code(s): D64.9 - Anemia, unspecified Status: Acute Assessment and Plan: * Chronic anemia, patient appears to be at baseline * Drop in hemoglobin and hematocrit since yesterday today hemoglobin 9.6 hematocrit 30 point 8 repeat H&H at 1:00 PM with type and screen * Occult blood pending * Continue iron supplement * No active bleeding noted at this time * Continue PPI twice daily and folic acid * Patient denies any blood in stool (3) ETOHism: Code(s): F10.20 - Alcohol dependence, uncomplicated Status: Acute Assessment and Plan: * Patient educated on alcohol cessation (4) Squamous cell carcinoma of esophagus: Code(s): C15.9 - Malignant neoplasm of esophagus, unspecified Status: Acute Assessment and Plan: * Recent imaging indicates Focal thickening of the midesophagus, suspicious for patient's known esophageal carcinoma. * Patient followed by Dr. Faye oncologist. Patient has appointment with him next week. Saturday at 10:30 PM (5) Elevated lactic acid level: Code(s): R79.89 - Other specified abnormal findings of blood chemistry Status: Resolved Assessment and Plan: * Resolved * Possibly secondary to pneumonia versus sepsis (6) Major depression: Code(s): F32.9 - Major depressive disorder, single episode, unspecified Status: Acute Assessment and Plan: * Patient currently not on any home medication * Will prescribe antidepressant if needed (7) Multiple falls: Code(s): R29.6 - Repeated falls Status: Acute Assessment and Plan: * Secondary to alcohol use * Patient complains of left side pain * CT ordered 1. Progression of extensive reticulonodular and airspace consolidation of the right middle and lower lobe, compatible with pneumonia,Ileus. (8) Sinus tachycardia: Code(s): R00.0 - Tachycardia, unspecified Status: Acute Assessment and Plan: * Possibly secondary to pneumonia versus sepsis * Continue telemetry * Will adjust medication as needed * Heart rate as high as 120 currently 86 * EKG indicates sinus tach at the time of admission heart rate of 104 (9) History of DVT (deep vein thrombosis): Code(s): Z86.718 - Personal history of other venous thrombosis and embolism Status: Acute Assessment and Plan: * Patient has a history of a DVT in his left IJ and proximal to mid left femoral that is unchanged.Also with occlusive superficial thrombosis at bilat cephalic veins. Patient Eliquis is on hold and is being managed by Dr. Faye. He will determine when the patient can resume use of Eliquis (10) Sepsis: Code(s): A41.9 - Sepsis, unspecified organism Status: Acute A
--- NOTE | 2019-11-08 11:02 | WPDPN ---
Progress Note: A&P Assessment and Plan (1) RLL pneumonia: Qualifiers: Pneumonia type: due to unspecified organism Qualified Code(s): J18.9 - Pneumonia, unspecified organism Code(s): J18.9 - Pneumonia, unspecified organism Status: Acute Assessment and Plan: Imaging indicates extensive reticulonodular infiltrates of the right lower lobe with more extensive focal consolidation in the right lower lobe peripherally, most likely pneumonia. Metastatic disease not excluded given the clinical history. Continue Rocephin 1 g and Flagyl day 2 Continue oxygen as needed Continue inhalers WBCs within normal limits Patient afebrile Started Solu-Medrol (2) Anemia: Qualifiers: Anemia type: unspecified type Qualified Code(s): D64.9 - Anemia, unspecified Code(s): D64.9 - Anemia, unspecified Status: Acute Assessment and Plan: Chronic anemia, patient appears to be at baseline Drop in hemoglobin and hematocrit since yesterday today hemoglobin 9.6 hematocrit 30 point 8 repeat H&H at 1:00 PM with type and screen Occult blood pending Continue iron supplement No active bleeding noted at this time Continue PPI twice daily and folic acid Patient denies any blood in stool (3) ETOHism: Code(s): F10.20 - Alcohol dependence, uncomplicated Status: Acute Assessment and Plan: Patient educated on alcohol cessation (4) Squamous cell carcinoma of esophagus: Code(s): C15.9 - Malignant neoplasm of esophagus, unspecified Status: Acute Assessment and Plan: Recent imaging indicates Focal thickening of the midesophagus, suspicious for patient's known esophageal carcinoma. Patient followed by Dr. Faye oncologist. Patient has appointment with him next week. Saturday at 10:30 PM (5) Elevated lactic acid level: Code(s): R79.89 - Other specified abnormal findings of blood chemistry Status: Resolved Assessment and Plan: Resolved Possibly secondary to pneumonia versus sepsis (6) Major depression: Code(s): F32.9 - Major depressive disorder, single episode, unspecified Status: Acute Assessment and Plan: Patient currently not on any home medication Will prescribe antidepressant if needed (7) Multiple falls: Code(s): R29.6 - Repeated falls Status: Acute Assessment and Plan: Secondary to alcohol use Patient complains of left side pain CT ordered 1. Progression of extensive reticulonodular and airspace consolidation of the right middle and lower lobe, compatible with pneumonia,Ileus. (8) Sinus tachycardia: Code(s): R00.0 - Tachycardia, unspecified Status: Acute Assessment and Plan: Possibly secondary to pneumonia versus sepsis Continue telemetry Will adjust medication as needed Heart rate as high as 120 currently 86 EKG indicates sinus tach at the time of admission heart rate of 104 (9) History of DVT (deep vein thrombosis): Code(s): Z86.718 - Personal history of other venous thrombosis and embolism Status: Acute Assessment and Plan: Patient has a history of a DVT in his left IJ and proximal to mid left femoral that is unchanged.Also with occlusive superficial thrombosis at bilat cephalic veins. Patient Eliquis is on hold and is being managed by Dr. Faye. He will determine when the patient can resume use of Eliquis (10) Sepsis: Code(s): A41.9 - Sepsis, unspecified organism Status: Acute Assessment and Plan: Possibly secondary to pneumonia As evidenced by tachypnea, tachycardia and elevated lactic acid Treat the underlying cause Continue IV fluid Continue antibiotic (11) Ileus: Code(s): K56.7 - Ileus, unspecified Status: Acute Assessment and Plan: CT indicates- Ileus Patient currently n.p.o. IV fluids started Reglan 5 mg every 6 hours started We will repeat CT in the a.m. Review of
[2019-11-08] MEDS: methylPREDNISolone SOD SUCC 125 MG VIAL IV PUSH ×2 (13:49→21:06)
[2019-11-08] MEDS: SODIUM CHLORIDE 0.9% IV 1,000 ML 50 ML IV CONT (13:49)
[2019-11-08] MEDS: METOCLOPRAMIDE HCL INJ 10 MG/2 ML VIAL 5 MG IV PUSH ×3 (13:49→23:30)
[2019-11-08 13:50] LABS: Hematocrit 29.3 % (40.0-54.0); Hemoglobin 9.1 g/dL (14.0-18.0); Mean Corpuscular HGB Conc 31.1 g/dL (32.0-36.0); Mean Corpuscular Hemoglobin 33.1 pg (27.0-31.0); Mean Corpuscular Volume 106.5 fL (78.0-102.0); Mean Platelet Volume 9.8 fl (8.7-11.0); Platelet Count Result 109 K/mm3 (150-420); Red Blood Count 2.75 M/mm3 (4.70-6.10); Red Cell Distribution Width 20.1 % (11.6-14.4); White Blood Count 7.7 K/mm3 (4.8-10.8)
[2019-11-08] MEDS: MORPHINE SULFATE 2 MG/ML INJ IV PUSH ×2 (13:50→21:06)
[2019-11-08 14:03] LABS: Ammonia 28 umol/L (11-32)
[2019-11-08] MEDS: FLUTICASONE PROPIONATE 0.05% NA SPR 16 GM BTL (*BKC) 2 SPRAY NASAL (21:05)
[2019-11-08] MEDS: traZODone HCL 50 MG TABLET 100 MG PO (21:06)
[2019-11-09] VITALS (7 sets, daily range): BP systolic 103–153; BP diastolic 57–96; PULSE 86–120; RESP 16–20; TEMP 36.1–36.5; O2SAT 96–98
[2019-11-09] MEDS: metroNIDAZOLE 500 MG/ISO 100ML 500 MG/100 ML BAG 100 MG IVPB ×3 (00:40→16:52)
[2019-11-09] MEDS: METOCLOPRAMIDE HCL INJ 10 MG/2 ML VIAL 5 MG IV PUSH ×3 (05:46→17:14)
[2019-11-09] MEDS: chlordiazePOXIDE 10 MG CAPSULE PO (05:47)
[2019-11-09] MEDS: MORPHINE SULFATE 2 MG/ML INJ IV PUSH ×3 (05:47→16:52)
[2019-11-09] MEDS: LEVOTHYROXINE SODIUM 25 MCG TABLET PO (05:47)
[2019-11-09] MEDS: methylPREDNISolone SOD SUCC 125 MG VIAL IV PUSH (05:47)
[2019-11-09 06:04] LABS: Hematocrit 26.7 % (40.0-54.0); Hemoglobin 8.3 g/dL (14.0-18.0); Mean Corpuscular HGB Conc 31.1 g/dL (32.0-36.0); Mean Corpuscular Hemoglobin 33.3 pg (27.0-31.0); Mean Corpuscular Volume 107.2 fL (78.0-102.0); Mean Platelet Volume 10.4 fl (8.7-11.0); Platelet Count Result 110 K/mm3 (150-420); Red Blood Count 2.49 M/mm3 (4.70-6.10); White Blood Count 3.9 K/mm3 (4.8-10.8)
[2019-11-09 06:30] LABS: Alanine Aminotransferase 11 U/L (16-63); Albumin Level 1.2 g/dL (3.4-5.0); Alkaline Phosphatase 107 U/L (46-116); Anion Gap 9 mmol/L (8-16); Aspartate Amino Transferase 28 U/L (15-37); Band Neutrophils Percent 0 % (0-6); Bilirubin,Total 0.5 mg/dL (0.00-1.00); Blood Urea Nitrogen 18 mg/dL (7-18); CRP 9.7 mg/dL (0.0-0.9); Calcium 6.3 mg/dL (8.5-10.1); Carbon Dioxide 22 mmol/L (21-32); Chloride 110 mmol/L (98-108); Estimated CRCL calculation 120 ml/min; Estimated Glomerular Filt Rate > 60; Glucose 113 mg/dL (70-99); Lymphocytes Absolute Manual 0.39 K/mm3 (1.1-4.5); Lymphocytes Percent Manual 10 % (18-44); Magnesium 1.8 mg/dL (1.8-2.4); Monocytes Absolute Manual 0.03 K/mm3 (0.1-0.90); Monocytes Percent Manual 1 % (3-9); Neutrophils Absolute Manual 3.47 K/mm3 (1.3-6.7); Neutrophils Percent Manual 89 % (46-73); Osmolality Calculated 294 mOsm/kg (285-295); Platelet Estimate Decreased (Adequate); Sodium 141 mmol/L (136-145); Total Cells Counted 100; Total Protein 4.1 g/dL (6.4-8.2)
[2019-11-09 06:31] LABS: Potassium 4.6 mmol/L (3.5-5.1)
[2019-11-09] MEDS: ATORVASTATIN 10 MG TABLET PO (08:57)
[2019-11-09] MEDS: calcitrioL 0.25 MCG CAPSULE 0.5 MCG PO (08:57)
[2019-11-09] MEDS: MAGNESIUM OXIDE 400 MG TABLET PO (08:57)
[2019-11-09] MEDS: CHOLECALCIFEROL 1,000 UNITS TABLET 5000 UNITS PO (08:57)
[2019-11-09] MEDS: ASPIRIN 325 MG ENTERIC TABLET PO (08:57)
[2019-11-09] MEDS: METOPROLOL TARTRATE 25 MG TABLET PO ×2 (08:58→16:51)
[2019-11-09] MEDS: FERROUS SULFATE 324 MG TABLET PO (08:58)
[2019-11-09] MEDS: POTASSIUM/PHOSPHORUS/SODIUM 1.5 GM PACKET 1 PACKET PO ×2 (08:58→16:51)
[2019-11-09] MEDS: TAMSULOSIN HCL 0.4 MG CAPSULE 0.8 MG PO (08:58)
[2019-11-09] MEDS: ACETAMINOPHEN 500 MG TABLET 1000 MG PO (10:26)
--- NOTE | 2019-11-09 13:42 | P.PN_ITS ---
Progress Note: A&P Assessment and Plan (1) RLL pneumonia: Qualifiers: Pneumonia type: due to unspecified organism Qualified Code(s): J18.9 - Pneumonia, unspecified organism <JIMENA Holguin - Last Filed: 11/09/19 13:48> Code(s): J18.9 - Pneumonia, unspecified organism <JIMENA Holguin - Last Filed: 11/09/19 13:48> Status: Acute <JIMENA Holguin - Last Filed: 11/09/19 13:48> Assessment and Plan: * Imaging indicates extensive reticulonodular infiltrates of the right lower lobe with more extensive focal consolidation in the right lower lobe peripherally, most likely pneumonia. Metastatic disease not excluded given the clinical history. * Continue Rocephin 1 g and Flagyl day 3 * Continue oxygen as needed * Continue inhalers * WBCs within normal limits * Patient afebrile * Continue Solu-Medrol 125 IV push Q 8 hours changed to Solu-Medrol 80 mg push b.i.d. <Kenton Burris KELLYC - Last Filed: 11/09/19 13:48> (2) Anemia: Qualifiers: Anemia type: unspecified type Qualified Code(s): D64.9 - Anemia, unspecified <Kenton Burris JIMENA - Last Filed: 11/09/19 13:48> Code(s): D64.9 - Anemia, unspecified <Kenton Burris JIMENA - Last Filed: 11/09/19 13:48> Status: Acute <Kenton Burris JIMENA - Last Filed: 11/09/19 13:48> Assessment and Plan: * Chronic anemia, patient appears to be at baseline * Drop in hemoglobin and hematocrit since yesterday today hemoglobin 9.6 hematocrit 30 point 8 repeat H&H at 1:00 PM with type and screen * Occult blood pending * Continue iron supplement * No active bleeding noted at this time * Continue PPI twice daily and folic acid * Patient denies any blood in stool <Kenton Burris KELLYMari - Last Filed: 11/09/19 13:48> (3) ETOHism: Code(s): F10.20 - Alcohol dependence, uncomplicated <KINGA Holguin-C - Last Filed: 11/09/19 13:48> Status: Acute <JIMENA Holguin - Last Filed: 11/09/19 13:48> Assessment and Plan: * Patient educated on alcohol cessation <EKLLY HolguinC - Last Filed: 11/09/19 13:48> (4) Squamous cell carcinoma of esophagus: Code(s): C15.9 - Malignant neoplasm of esophagus, unspecified <KINGA Holguin-C - Last Filed: 11/09/19 13:48> Status: Acute <KINGA Holguin-Mari - Last Filed: 11/09/19 13:48> Assessment and Plan: * Recent imaging indicates Focal thickening of the midesophagus, suspicious for patient's known esophageal carcinoma. * Patient followed by Dr. Faye oncologist. Patient has appointment with him next week. Saturday at 10:30 PM <KELLY HolguinC - Last Filed: 11/09/19 13:48> (5) Elevated lactic acid level: Code(s): R79.89 - Other specified abnormal findings of blood chemistry <JIMENA Holguin - Last Filed: 11/09/19 13:48> Status: Resolved <KELYL HolguinC - Last Filed: 11/09/19 13:48> Assessment and Plan: * Resolved * Possibly secondary to pneumonia versus sepsis <KELLY HolguinC - Last Filed: 11/09/19 13:48> (6) Major depression: Code(s): F32.9 - Major depressive disorder, single episode, unspecified <KINGA Holguin-C - Last Filed: 11/09/19 13:48> Status: Acute <JIMENA Holguin - Last Filed: 11/09/19 13:48> Assessment and Plan: * Patient currently not on any home medication * Will prescribe antidepressant if needed <JIMENA Holguin - Last Filed: 11/09/19 13:48> (7) Mul
--- NOTE | 2019-11-09 13:42 | WPDPN ---
Progress Note: A&P Assessment and Plan (1) RLL pneumonia: Qualifiers: Pneumonia type: due to unspecified organism Qualified Code(s): J18.9 - Pneumonia, unspecified organism <Kenton BraggJIMENA Sosa - Last Filed: 11/09/19 13:48> Code(s): J18.9 - Pneumonia, unspecified organism <Kenton BraggKELLY SosaC - Last Filed: 11/09/19 13:48> Status: Acute <Kenton BraggJIMENA Sosa - Last Filed: 11/09/19 13:48> Assessment and Plan: Imaging indicates extensive reticulonodular infiltrates of the right lower lobe with more extensive focal consolidation in the right lower lobe peripherally, most likely pneumonia. Metastatic disease not excluded given the clinical history. Continue Rocephin 1 g and Flagyl day 3 Continue oxygen as needed Continue inhalers WBCs within normal limits Patient afebrile Continue Solu-Medrol 125 IV push Q 8 hours changed to Solu-Medrol 80 mg push b.i.d. <JIMENA Holguin - Last Filed: 11/09/19 13:48> (2) Anemia: Qualifiers: Anemia type: unspecified type Qualified Code(s): D64.9 - Anemia, unspecified <Yassinekhai YemiJIMENA Sosa - Last Filed: 11/09/19 13:48> Code(s): D64.9 - Anemia, unspecified <Yassinekhai YemiKELLY SosaC - Last Filed: 11/09/19 13:48> Status: Acute <Kenton BraggJIMENA Sosa - Last Filed: 11/09/19 13:48> Assessment and Plan: Chronic anemia, patient appears to be at baseline Drop in hemoglobin and hematocrit since yesterday today hemoglobin 9.6 hematocrit 30 point 8 repeat H&H at 1:00 PM with type and screen Occult blood pending Continue iron supplement No active bleeding noted at this time Continue PPI twice daily and folic acid Patient denies any blood in stool <KELLY HolguinC - Last Filed: 11/09/19 13:48> (3) ETOHism: Code(s): F10.20 - Alcohol dependence, uncomplicated <KELLY HolguinC - Last Filed: 11/09/19 13:48> Status: Acute <KINGA Holguin-C - Last Filed: 11/09/19 13:48> Assessment and Plan: Patient educated on alcohol cessation <Kenton Burris KINGA-C - Last Filed: 11/09/19 13:48> (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 Patient followed by Dr. Faye oncologist. Patient has appointment with him next week. Saturday at 10:30 PM <Kenton BraggMarcelina Dayton KINGA-C - Last Filed: 11/09/19 13:48> (5) Elevated lactic acid level: Code(s): R79.89 - Other specified abnormal findings of blood chemistry <Kenton Burris KINGA-C - Last Filed: 11/09/19 13:48> Status: Resolved <Kenton Burris KINGA-C - Last Filed: 11/09/19 13:48> Assessment and Plan: Resolved Possibly secondary to pneumonia versus sepsis <Kenton Burris KINGA-C - Last Filed: 11/09/19 13:48> (6) Major depression: Code(s): F32.9 - Major depressive disorder, single episode, unspecified <Kenton Burris KINGA-C - Last Filed: 11/09/19 13:48> Status: Acute <Kenton Burris KINGA-C - Last Filed: 11/09/19 13:48> Assessment and Plan: Patient currently not on any home medication Will prescribe antidepressant if needed <Kenton BraggMarcelina Dayton CUSTOMER SUCCESS MANAGER-C - Last Filed: 11/09/19 13:48> (7) Multiple falls: Code(s): R29.6 - Repeated falls <Kenton Burris CUSTOMER SUCCESS MANAGER-C - Last Filed: 08/31/20 13:48> Status: Acute <Kenton Burris, CUSTOMER SUCCESS MANAGER-C - Last Filed: 11/09/19 13:48> Assessment and Plan: Secondary to alcohol use Patient complains of left side pain CT ordered 1. Progression of extensive reticulonodular and airsp
[2019-11-09] MEDS: SODIUM CHLORIDE 0.9% IV 1,000 ML 50 ML IV CONT (14:19)
[2019-11-09] MEDS: methylPREDNISolone SOD SUCC 125 MG VIAL 80 MG IV PUSH (16:51)
[2019-11-09] MEDS: FLUTICASONE PROPIONATE 0.05% NA SPR 16 GM BTL (*BKC) 2 SPRAY NASAL (19:55)
[2019-11-09] MEDS: traZODone HCL 50 MG TABLET 100 MG PO (19:56)
--- NOTE | 2019-11-09 20:53 | PC.NURSE ---
ER nurse here to attempt to place new IV. Unable to obtain access. MD notified and he will look at patient's MAR.
[2019-11-10] VITALS (15 sets, daily range): BP systolic 71–163; BP diastolic 40–92; PULSE 80–158; RESP 16–20; TEMP 36.2–37.4; O2SAT 94–98
[2019-11-10] MEDS: chlordiazePOXIDE 10 MG CAPSULE PO (00:09)
[2019-11-10] MEDS: ACETAMINOPHEN 500 MG TABLET 1000 MG PO (00:09)
--- NOTE | 2019-11-10 03:33 | PC.NURSE ---
Inc care provided. New dressing to L buttock.
--- NOTE | 2019-11-10 05:14 | PC.NURSE ---
Pt was inc of lg . thick liquid dk green BM
[2019-11-10] MEDS: metroNIDAZOLE 250 MG TABLET 500 MG PO ×2 (05:34)
[2019-11-10] MEDS: LEVOTHYROXINE SODIUM 25 MCG TABLET PO (05:34)
[2019-11-10 06:03] LABS: Alanine Aminotransferase 12 U/L (16-63); Albumin Level 1.4 g/dL (3.4-5.0); Alkaline Phosphatase 100 U/L (46-116); Anion Gap 6 mmol/L (8-16); Aspartate Amino Transferase 15 U/L (15-37); Bilirubin,Total 0.2 mg/dL (0.00-1.00); Blood Urea Nitrogen 26 mg/dL (7-18); Calcium 7.4 mg/dL (8.5-10.1); Carbon Dioxide 25 mmol/L (21-32); Chloride 107 mmol/L (98-108); Estimated CRCL calculation 83 ml/min; Estimated Glomerular Filt Rate > 60; Glucose 159 mg/dL (70-99); Osmolality Calculated 293 mOsm/kg (285-295); Potassium 5.1 mmol/L (3.5-5.1); Sodium 138 mmol/L (136-145); Total Protein 4.7 g/dL (6.4-8.2)
[2019-11-10 06:14] LABS: Hematocrit 20.4 % (40.0-54.0); Mean Corpuscular HGB Conc 32.8 g/dL (32.0-36.0); Mean Corpuscular Volume 103.6 fL (78.0-102.0); Mean Platelet Volume 10.2 fl (8.7-11.0); Platelet Count Result 114 K/mm3 (150-420); Red Blood Count 1.97 M/mm3 (4.70-6.10); Red Cell Distribution Width 19.9 % (11.6-14.4); White Blood Count 11.1 K/mm3 (4.8-10.8)
[2019-11-10 06:21] LABS: Hemoglobin 6.7 g/dL (14.0-18.0)
--- NOTE | 2019-11-10 06:30 | PC.NURSE ---
Patient's labs called to Dr Amin and also notified of Reglan still needing to be changed to po. Dr Amin said he'll let them know. No new orders received @ this time.
[2019-11-10 08:00] LABS: Immature Reticulocyte Fraction 16.4 % (2.0-16.52); Reticulocyte Hemoglobin Conten 40.8 pg (28.0-35.0); Reticulocyte Percent 2.89 % (0.50-1.50); Reticulocytes Absolute 0.06 M/mm3 (0.02-0.1)
[2019-11-10 08:15] LABS: BNP 88 pg/mL (0-100)
[2019-11-10 08:20] LABS: CRP 3.5 mg/dL (0.0-0.9)
--- NOTE | 2019-11-10 08:30 | PC.NURSE ---
PT UP TO BSC TO PASS LARGE, LIQUID, BLACK BM. PT PALE, WEAK AND COMPLAINING OF SOB. STEADY ON BSC WITH MAX ASSIST. NEW IV STARTED IN RAC. LASTING ROOM MACHINE OPERATOR PRESENT. TO BED WITH MAX ASSIST OF 2.
[2019-11-10] MEDS: SODIUM CHLORIDE 0.9% IV 1,000 ML 999 ML IV CONT (08:50)
--- NOTE | 2019-11-10 08:50 | PC.NURSE ---
DR. CHRISTIAN IN ROOM. BP 126/80. NS BOLUS STARTED. SKIN PALE. PT STATES HE FEELS BETTER, DENIES SOB.
--- NOTE | 2019-11-10 09:08 | PC.NURSE ---
LAB HERE TO DRAW BLOOD.
--- NOTE | 2019-11-10 09:25 | PC.NURSE ---
TO CT SCAN PER BED.
[2019-11-10 09:38] LABS: INR 1.4
--- NOTE | 2019-11-10 09:50 | PC.NURSE ---
PT RETURNED TO ROOM PER BED.
--- NOTE | 2019-11-10 10:35 | PC.NURSE ---
PLASMA INFUSION STARTED. SEE TAR.
[2019-11-10] MEDS: SODIUM CHLORIDE 0.9% IV 250 ML 30 ML IV CONT (10:39)
--- NOTE | 2019-11-10 11:21 | P.DS_ITS ---
DS: Admitting Diagnosis Admitting Diagnosis Admitting Diagnosis: RLL PNEUMONIA HYPOXIA DS: Discharge Diagnosis Discharge Diagnosis (1) RLL pneumonia: Qualifiers: Pneumonia type: due to unspecified organism Qualified Code(s): J18.9 - Pneumonia, unspecified organism Code(s): J18.9 - Pneumonia, unspecified organism Status: Acute Assessment and Plan: * Imaging indicates extensive reticulonodular infiltrates of the right lower lobe with more extensive focal consolidation in the right lower lobe peripherally, most likely pneumonia. Metastatic disease not excluded given the clinical history. * Continue Rocephin 1 g and Flagyl day 3 * Continue oxygen as needed * Continue inhalers * WBCs within normal limits * Patient afebrile * Continue Solu-Medrol 80 IV push Q 8 hours changed to Solu-Medrol 80 mg push b.i.d. (2) Anemia: Qualifiers: Anemia type: unspecified type Qualified Code(s): D64.9 - Anemia, unspecified Code(s): D64.9 - Anemia, unspecified Status: Acute Assessment and Plan: * Chronic anemia, patient hemoglobin has dropped to 6.7 today * Possibly secondary to GI bleed with patient's history of cirrhosis * Patient's INR and 1.4, platelets 114. Absolute reticulocyte 0.06% retake 2.89 * Patient with melena * (3) ETOHism: Code(s): F10.20 - Alcohol dependence, uncomplicated Status: Acute Assessment and Plan: * Patient educated on alcohol cessation * Patient EtOH level elevated on admission * Patient has been admitted several times due to falls caused by alcohol use (4) Squamous cell carcinoma of esophagus: Code(s): C15.9 - Malignant neoplasm of esophagus, unspecified Status: Acute Assessment and Plan: * Recent imaging indicates Focal thickening of the midesophagus, suspicious for patient's known esophageal carcinoma. * Patient followed by Dr. Faye oncologist. Patient has appointment with him next week. Saturday at 10:30 PM (5) Elevated lactic acid level: Code(s): R79.89 - Other specified abnormal findings of blood chemistry Status: Resolved Assessment and Plan: * Resolved * Possibly secondary to pneumonia versus sepsis (6) Major depression: Code(s): F32.9 - Major depressive disorder, single episode, unspecified Status: Acute Assessment and Plan: * Patient currently not on any home medication * Will prescribe antidepressant if needed (7) Multiple falls: Code(s): R29.6 - Repeated falls Status: Acute Assessment and Plan: * Secondary to alcohol use * Patient complains of left side pain * CT ordered 1. Progression of extensive reticulonodular and airspace consolidation of the right middle and lower lobe, compatible with pneumonia,Ileus. (8) Sinus tachycardia: Code(s): R00.0 - Tachycardia, unspecified Status: Acute Assessment and Plan: * resolved * Possibly secondary to pneumonia versus sepsis * Continue telemetry * Will adjust medication as needed * EKG indicates sinus tach at the time of admission heart rate of 104 (9) History of DVT (deep vein thrombosis): Code(s): Z86.718 - Personal history of other venous thrombosis and embolism Status: Acute Assessment and Plan: * Patient has a history of a DVT in his left IJ and proximal to mid left femoral that is unchanged.Also with occlusive superficial thrombosis at bilat cephalic veins. Patient Ty is on hold and is being managed by Dr. Faye. He will determine when th
--- NOTE | 2019-11-10 11:21 | PM.DS ---
DS: Admitting Diagnosis Admitting Diagnosis Admitting Diagnosis: RLL PNEUMONIA HYPOXIA DS: Discharge Diagnosis Discharge Diagnosis (1) RLL pneumonia: Qualifiers: Pneumonia type: due to unspecified organism Qualified Code(s): J18.9 - Pneumonia, unspecified organism Code(s): J18.9 - Pneumonia, unspecified organism Status: Acute Assessment and Plan: Imaging indicates extensive reticulonodular infiltrates of the right lower lobe with more extensive focal consolidation in the right lower lobe peripherally, most likely pneumonia. Metastatic disease not excluded given the clinical history. Continue Rocephin 1 g and Flagyl day 3 Continue oxygen as needed Continue inhalers WBCs within normal limits Patient afebrile Continue Solu-Medrol 80 IV push Q 8 hours changed to Solu-Medrol 80 mg push b.i.d. (2) Anemia: Qualifiers: Anemia type: unspecified type Qualified Code(s): D64.9 - Anemia, unspecified Code(s): D64.9 - Anemia, unspecified Status: Acute Assessment and Plan: Chronic anemia, patient hemoglobin has dropped to 6.7 today Possibly secondary to GI bleed with patient's history of cirrhosis Patient's INR and 1.4, platelets 114. Absolute reticulocyte 0.06% retake 2.89 Patient with melena (3) ETOHism: Code(s): F10.20 - Alcohol dependence, uncomplicated Status: Acute Assessment and Plan: Patient educated on alcohol cessation Patient EtOH level elevated on admission Patient has been admitted several times due to falls caused by alcohol use (4) Squamous cell carcinoma of esophagus: Code(s): C15.9 - Malignant neoplasm of esophagus, unspecified Status: Acute Assessment and Plan: Recent imaging indicates Focal thickening of the midesophagus, suspicious for patient's known esophageal carcinoma. Patient followed by Dr. Faye oncologist. Patient has appointment with him next week. Saturday at 10:30 PM (5) Elevated lactic acid level: Code(s): R79.89 - Other specified abnormal findings of blood chemistry Status: Resolved Assessment and Plan: Resolved Possibly secondary to pneumonia versus sepsis (6) Major depression: Code(s): F32.9 - Major depressive disorder, single episode, unspecified Status: Acute Assessment and Plan: Patient currently not on any home medication Will prescribe antidepressant if needed (7) Multiple falls: Code(s): R29.6 - Repeated falls Status: Acute Assessment and Plan: Secondary to alcohol use Patient complains of left side pain CT ordered 1. Progression of extensive reticulonodular and airspace consolidation of the right middle and lower lobe, compatible with pneumonia,Ileus. (8) Sinus tachycardia: Code(s): R00.0 - Tachycardia, unspecified Status: Acute Assessment and Plan: resolved Possibly secondary to pneumonia versus sepsis Continue telemetry Will adjust medication as needed EKG indicates sinus tach at the time of admission heart rate of 104 (9) History of DVT (deep vein thrombosis): Code(s): Z86.718 - Personal history of other venous thrombosis and embolism Status: Acute Assessment and Plan: Patient has a history of a DVT in his left IJ and proximal to mid left femoral that is unchanged.Also with occlusive superficial thrombosis at bilat cephalic veins. Patient Eliquis is on hold and is being managed by Dr. Faye. He will determine when the patient can resume use of Eliquis (10) Sepsis: Code(s): A41.9 - Sepsis, unspecified organism Status: Acute Assessment and Plan: Resolved Possibly secondary to pneumonia As evidenced by tachypnea, tachycardia and elevated lactic acid Treat the underlying cause Continue IV fluid Continue antibiotic (11) Ileus: Code(s): K56.7 - Ileus, unspecified Status: Acute Assessment and Plan: C
--- NOTE | 2019-11-10 12:41 | PC.NURSE ---
[facility] called they can transport pt with blood infusing. [facility] Called and report given to Yosvany. Awaiting Ambulance arrival for transportation.
--- NOTE | 2019-11-10 13:04 | PC.NURSE ---
[facility] here to transport patient to [facility] ICU. All valuables, and [place] [facility].
--- NOTE | 2019-11-10 13:20 | PC.NURSE ---
PT TRANSFERRED TO [facility] WITH FIRST UNIT OF [facility]'S INFUSING. PT A&OX3. [facility]ONG[facility] SENT WITH PATIENT.
[2019-11-11 16:07] LABS: Legionella pneumophila Ag Ur Not Detected (Not Detected)
== END 2019-11-10 12:55 | disposition short-term general hospital (02) | DRG 871 ==
LOC: CHSED 19:18 → CHS2ND 21:55
PROVIDERS: Family Medicine; Nurse Practitioner; Admitting Provider Emergency Medicine; Emergency Provider Emergency Medicine; PCP Internal Medicine; Visit Provider Emergency Medicine
DX: J18.9 Pneumonia, unspecified organism (principal); C15.9 Malignant neoplasm of esophagus, unspecified; D64.9 Anemia, unspecified; N40.0 Benign prostatic hyperplasia without lower urinary tract symptoms; I82.512 Chronic embolism and thrombosis of left femoral vein; I82.702 Chronic embolism and thrombosis of unspecified veins of left upper extremity; I82.891 Chronic embolism and thrombosis of other specified veins; I10 Essential (primary) hypertension; K76.0 Fatty (change of) liver, not elsewhere classified; G62.9 Polyneuropathy, unspecified; F32.9 Major depressive disorder, single episode, unspecified; F17.210 Nicotine dependence, cigarettes, uncomplicated; F41.9 Anxiety disorder, unspecified; F10.20 Alcohol dependence, uncomplicated; Z79.01 Long term (current) use of anticoagulants; Z91.81 History of falling; A41.9 Sepsis, unspecified organism; K56.7 Ileus, unspecified; S22.42XA Multiple fractures of ribs, left side, initial encounter for closed fracture; I25.2 Old myocardial infarction; K57.90 Diverticulosis of intestine, part unspecified, without perforation or abscess without bleeding; R79.89 Other specified abnormal findings of blood chemistry; R29.6 Repeated falls; W19.XXXA Unspecified fall, initial encounter
CPT/HCPCS: 36415; 36430; 71260; 74176; 74177; 80048; 80053; 80307; 81001; 82140; 82550; 83605; 83690; 83735; 83880; 84484; 85025; 85027; 85046; 85610; 85730; 86140; 86850; 86900; 86901; 86920; 86923; 87040; 87077; 87086; 87088; 87186; 87449; 93005; 99285; A9270; J0696; J1940; J2270; J2765; J2930; J3475; J7030; J7040; J7050; P9016; P9017; Q9965

== ENCOUNTER 2019-11-10 14:08 | Inpatient (IN) | payer MEDICARE, SELFPAY ==
[2019-11-10] VITALS (12 sets, daily range): BP systolic 117–186; BP diastolic 58–103; PULSE 82–131; RESP 17–32; TEMP 36.5–37; O2SAT 96–100; BMI 28.8
--- NOTE | ~2019-11-10 | XR_ITS ---
EXAMINATION: XR chest 1V portable INDICATION: Shortness of breath TECHNIQUE: Portable AP chest at 0544 hours COMPARISON: 11/10/2019 FINDINGS: Airspace opacities of the right lung and left lung base persist but have improved. There ar e small pleural effusions. No pneumothorax is identified. The cardiomediastinal silhouette is normal. 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 Acute fractures of the left sevent h through ninth ribs are noted. Cholecystectomy clip is noted in the right upper quadrant. IMPRESSION: 1. Persistent but improved airspace opacity throughout the right lung and in the left lung base, cons istent with resolving pneumonia. 2. Left rib fractures. 3. Small pleural effusions. Reviewed, dictated and finalized at location A. IMPRESSION: 1. Persistent but improved airspace opacity throughout the right lung and in th e left lung base, consistent with resolving pneumonia. 2. Left rib fractures. 3. Small pleural effusions.
--- NOTE | ~2019-11-10 | XR_ITS ---
EXAMINATION: XR chest 1V portable INDICATION: Shortness of breath TECHNIQUE: Portable AP chest at 1512 hours COMPARISON: 09/13/2019; CT from yesterday FINDINGS: There are airspace opacities throughout the right lung. Small pleural effusions are present . The cardiomediastinal silhouette is normal. There is advanced right glenohumeral joint osteoarthrit is with remodeling. IMPRESSION: 1. Pneumonia of the right lung. Reviewed, dictated and finalized at location A.
--- NOTE | 2019-11-10 14:14 | ADMGEN ---
This patient, Calixto Lyons, was admitted to Intensive Care Unit-8. Patient/family oriented to hospital policies and general routines including ID bracelet, bed and alarms, visiting hours, pain management, procedures, bathroom and other care routines, personal items, smoking policy, room service/diet, and visiting hours. Valuables list has been completed. Information on how to activate the Rapid Response Team has been discussed. Patient/Family are encouraged to report perceived risks to care and to ask questions if they do not understand what they are told or what they should do.
--- NOTE | 2019-11-10 14:40 | WPDCNINT ---
Assessment and Plan Assessment and plan (1) GI bleed: Qualifiers: GI bleed type/associated pathology: melena Qualified Code(s): K92.1 - Melena Code(s): K92.2 - Gastrointestinal hemorrhage, unspecified Status: Acute Assessment and Plan: patient presented with melena, known esophageal malignancy on recent EGD done on 10/19/2019 - patient continues to drink alcohol which may be causing irritation and bleeding - discussed with Gastroenterology, agrees to PPI IV q.12 hours and Carafate suspension q.6 hours - NPO with sips with medications - patient received 2 units of packed RBCs and unit of FFP (2) Anemia: Qualifiers: Anemia type: unspecified type Qualified Code(s): D64.9 - Anemia, unspecified Code(s): D64.9 - Anemia, unspecified Status: Acute Assessment and Plan: hemoglobin 6.7 this morning at the outside hospital, received 2 units of packed RBC and 1 unit of FFP - repeat CBC and monitor H&H Q 6 hours - will transfuse as needed (3) RLL pneumonia: Qualifiers: Pneumonia type: due to unspecified organism Qualified Code(s): J18.9 - Pneumonia, unspecified organism Code(s): J18.9 - Pneumonia, unspecified organism Status: Acute Assessment and Plan: right lower and right middle lobe pneumonia, - will start Zosyn (4) Acute UTI: Code(s): N39.0 - Urinary tract infection, site not specified Status: Acute Assessment and Plan: Enterococcus UTI, susceptible to ampicillin, started Zosyn (5) Rib fracture: Code(s): S22.39XA - Fracture of one rib, unspecified side, initial encounter for closed fracture Status: Acute Assessment and Plan: left-sided rib fractures as seen on CT scan of the abdomen - pain control with morphine (6) Multiple falls: Code(s): R29.6 - Repeated falls Status: Acute Assessment and Plan: will have PT OT evaluate the patient (7) ETOHism: Code(s): F10.20 - Alcohol dependence, uncomplicated Status: Acute Assessment and Plan: patient had elevated alcohol levels on admission on 11/06/2019 - Patient states he feels shaky - CIWA protocol in place, p.r.n. Ativan - Librium started (8) Mass of esophagus determined by endoscopy: Code(s): K22.8 - Other specified diseases of esophagus Status: Acute Assessment and Plan: EGD on 10/19/2019 showed esophageal ulcerative mass that was malignant appearing, endoscopic biopsy revealed moderately differentiated squamous cell carcinoma invading this more muscle. - GI following the patient - Dr. Faye had seen this patient on the last admission, will re-consult Heme-Onc (9) Suspected 2019 novel coronavirus infection: Code(s): Z20.828 - Contact with and (suspected) exposure to other viral communicable diseases Status: Acute Assessment and Plan: SARS-CoV-2 PCR swab obtained and pending - continue droplet, airborne and contact isolation /precautions Additional Plan discussed with patient in details and updated with his condition and plan of care. Discussed with GI code status: Full code critical care time spent:49 Minutes Due to a high probability of clinically significant, life threatening deterioration, the patient required my highest level of preparedness to intervene emergently and I personally spent this critical care time directly and personally managing the patient. This critical care time included obtaining a history; examining the patient; pulse oximetry; ordering and review of studies; arranging urgent treatment with development of a management plan; evaluation of patient's response to treatment; frequent reassessment; and discussions with other providers. It was exclusive of separately billable procedures and treating other patients and teaching time. Please see Assessment and Plan section and the rest of the note for further information on patient
--- NOTE | 2019-11-10 15:11 | WPDGICN ---
Assessment and Plan Assessment and plan (1) Squamous cell carcinoma of esophagus: Code(s): C15.9 - Malignant neoplasm of esophagus, unspecified Status: Acute Assessment and Plan: Patient with recent diagnosis squamous cell carcinoma of the esophagus. Followed by Dr. Yemi ruiz. Likely source of recent GI bleeding. Recent endoscopy revealed no evidence of varices time of scoping 2 weeks ago. Plan is for supportive care. Transfuse add Carafate keep patient on proton pump inhibitors. EGD if bleeding persists. Tumors typically responds poorly to cautery however so this will be deferred initially. (2) Anemia: Qualifiers: Anemia type: unspecified type Qualified Code(s): D64.9 - Anemia, unspecified Code(s): D64.9 - Anemia, unspecified Status: Acute Assessment and Plan: Patient has blood loss anemia. Plan is to transfuse to a stable hemoglobin Louie you to monitor hemoglobin closely. (3) RLL pneumonia: Qualifiers: Pneumonia type: due to unspecified organism Qualified Code(s): J18.9 - Pneumonia, unspecified organism Code(s): J18.9 - Pneumonia, unspecified organism Status: Acute Assessment and Plan: Pneumonia noted at time of admission to [facility]. COVID testing in progress. Continue antibiotics. (4) ETOHism: Code(s): F10.20 - Alcohol dependence, uncomplicated Status: Acute Assessment and Plan: Long history of alcohol abuse. Likely has underlying liver disease. Also a risk factors for his squamous cell carcinoma of the esophagus. Patient was drinking at time of presentation to [facility] several days ago. Strongly encourage alcohol avoidance. (5) GI bleed: Qualifiers: GI bleed type/associated pathology: melena Qualified Code(s): K92.1 - Melena Code(s): K92.2 - Gastrointestinal hemorrhage, unspecified Status: Acute Assessment and Plan: Patient with active GI bleeding for this reason holding anticoagulation strongly encourage. Apparently this is already been implemented. 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 Patient is a longstanding history of alcohol abuse. Was hospitalized here at [facility] 2 weeks ago with GI bleeding was identified in EGD revealed mid esophageal squamous cell carcinoma. Patient has a distant history of DVTs previously on Eliquis this was held at the time of discharge and he is no longer taking this medication. He recently presented to [facility] with falls and confusion apparently has been actively drinking and during that hospital stay is notice a decline in his hemoglobin. Black melenic stools were described. Patient was transferred to the intensive care unit at [facility]. He currently is also being treated for pneumonia. And has a urinary tract infection. Review of Systems Review of Systems: All systems reviewed & are unremarkable except as noted in HPI and below PMFSH Past Medical History Medical History Alcohol abuse Anxiety Benign prostatic hyperplasia Chronic anemia Compression fracture Including thoracic and lumbar compression fractures. Current use of plasterer spot anticoagulation For DVTs of the upper and lower extremities detailed below. Deep venous thrombosis Left femoral vein, left internal jugular, and let axillary veins not
[2019-11-10] MEDS: ALBUTEROL SULFATE (*SP) AEROSOL 1 PUFF 2 PUFF INHALATION ×2 (16:09→20:34)
[2019-11-10] MEDS: MORPHINE SULFATE 2 MG/ML INJ IV PUSH ×2 (16:34→23:33)
[2019-11-10] MEDS: chlordiazePOXIDE 25 MG CAPSULE 50 MG PO ×2 (16:35→23:33)
[2019-11-10] MEDS: SUCRALFATE SUSP 100 MG/ML 10 ML UDC 1000 MG PO ×2 (16:35→20:09)
--- NOTE | 2019-11-10 17:05 | PM.IMHP ---
H&P: HPI History of Present Illness Date/Time: 11/10/19 17:05 Chief complaint: GI Bleed Narrative: Calixto Lyons is a 59 year old male Who had been admitted here on 10/17/2019 for Hemoccult-positive stools and suicidal ideation. The patient has a longstanding history of alcohol abuse and peripheral neuropathy secondary to alcoholism. Patient was also found to have a DVT on the left lower extremity in the left arm and had been placed on Eliquis. He also has peptic ulcer disease. Dr. mccullough saw him at that time. Patient was placed on Protonix at that time. Patient had an EGD on 10/19/[address] javier and a malignant-appearing med esophageal mass was reported at that time. Oncology was consulted. Patient was also found to have internal hemorrhoids with a colonoscopy and diverticulosis without perforation. 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 The patient had been given a blood transfusion while he was here. Patient was supposed to be seen for an IVC filter evaluation. The patient was discharged home with home health therapy. He was discharged from [facility] on 10/22/2019. Patient then was seen in the emergency room at [facility] on 11/06/2019 for some generalized weakness. The patient [place] was up to be ill appearing and weak. Patient had been falling but denies hitting his head. On 11/07/2019 was admitted to [facility]. He had troponins negative x3. He had been complaining of chest pain at [facility]. EKG was sinus tachycardia. Patient is being treated for pneumonia with infiltrates in the right lower lobe with extensive focal consolidation right lower lobe most likely pneumonia metastatic disease is not excludable given the clinical history. The patient was started on Rocephin and Flagyl. CT was ordered and he had progression of extensive reticular nodule and airspace consolidation right middle and lower lobe compatible with pneumonia/ileus. Patient was noted to have a DVT in his left IJ and proximal to mid left moral that is unchanged. Occlusive superficial thrombosis at bilateral cephalic veins. Patient's Eliquis has been on hold to his GI bleed. Patient has been complaining of left lower quadrant pain he was found to have left 7th through 12th rib fractures. He is being treated with morphine for the rib pain. Today the patient's hemoglobin dropped down to 6.7. Blood pressure is down a 71/41. Heart rate went up to 150 and he had melena guaiac positive stools. Who is bolused with IV fluids. A the armored car driver was notified here at [facility] the patient was transferred here. Patient was order Levophed but it was not started as the patient's blood pressure stabilized. The patient was evaluated by Dr. Javier here as well as the armored car driver. The patient was placed in the intensive care unit. He was started on Zosyn for pneumonia as well as UTI. The patient's urine culture from 11/06/2019 grew Enterococcus species. Blood cultures are pending. Patient has been typed and cross-matched for 2 units of packed red blood cells as well as FFP. The armored car driver spoke with GI specialist who agrees to start Carafate and PPI IV. I spent approximately 60 minutes in the intensive care unit with the patient. He is also in isolation and ICU due to COVID swabbed that is pending. Date of service is 11/10/2019 Review of Systems Review of Systems: Narrative: the patient feels very weak and dizzy. He is very hard of hearing. All systems reviewed & are unremarkable except as noted in HPI and below Constitutional: Constitutional: Reports as per HPI and Reports no additional constitutional complaints Eyes: Eyes: Reports as per HPI and Reports no additional eye complaints ENT: Reports system reviewed and no additional complaints, except as documented and Reports Normal hearing present Cardiovascular: Cardiovascular: Reports no additional cardiovascu
--- NOTE | 2019-11-10 18:42 | WPDPROCEDUR ---
Procedures Central Line Placement Right Femoral: Central Line Date: 11/10/19 Central Line Time: 18:21 Discussed w/ the patient/family/POA,the placement of a central venous catheter, including its clinical necessity/indication & associated potential risks, benifits and alternatives.: Yes Consent: The patient signed the consent form. Patient Position: supine Patient placed on monitor/pulse ox: Yes Provider Prep: mask, sterile gown, sterile gloves, Max. sterile barrier precautions, cap ( I was wearing a caper) and hand hygiene with conventional soap/water or alcohol based hand rub Central line prep: Povidone-Iodine 1%, 2% Chlorhexidine scrub and sterile full body sheet applied Local anesthesia used: lidocaine 2% Amount of anesthesia used (ml): 3 Sterile US Technique with sterile gel/sterile probe covers: Yes Central line lumen inserted: triple Palauan: 7 Length (cm): 16 Depth of Insertion (cm): 15 Post procedure: sutured in place, good blood return, all ports aspirated, flushed, capped, tegaderm, hemostatic disc and antimicrobial disc Complications: none Additional comments: no need for any chest X-ray as it is femoral.
[2019-11-10 18:47] LABS: Basophils Percent Auto 0.1 % (0.2-1.2); Hematocrit 21.7 % (42.0-52.0); Hemoglobin 7.3 g/dL (14.0-18.0); Immature Granulocyte Absolute 0.06 K/mm3 (0.00-0.031); Immature Granulocyte Percent A 0.8 % (0-0.5); Lymphocytes Absolute Auto 0.41 K/mm3 (0.9-3.2); Lymphocytes Percent Auto 5.5 % (18.3-44.2); Mean Corpuscular HGB Conc 33.6 g/dl (32-36); Mean Corpuscular Hemoglobin 33.2 pg (26-34); Mean Corpuscular Volume 98.6 fl (80-100); Mean Platelet Volume 9.8 fl (7.4-10.4); Monocytes Absolute Auto 0.7 K/mm3 (0.1-0.6); Monocytes Percent Auto 9.8 % (2.6-8.5); Neutrophils Absolute Auto 6.3 K/mm3 (1.3-6.7); Neutrophils Percent Auto 83.8 % (45.5-73.1); Platelet Count Result 119 k/mm3 (150-375); Red Cell Distribution Width 19.9 % (11.5-14.5); White Blood Count 7.5 K/mm3 (4.5-10.0)
[2019-11-10 18:57] LABS: INR 1.3; Partial Thromboplastin Time 26.8 SECONDS (22.3-36.8)
[2019-11-10 18:58] LABS: Lactic Acid Reflex 0.9 mmol/L (0.7-2.1)
[2019-11-10 19:00] LABS: D Dimer 2.54 ug/mL (<0.48)
[2019-11-10 19:02] LABS: Platelet Estimate Decreased (Adequate)
[2019-11-10 19:02] LABS: Alanine Aminotransferase 8 U/L (4-50); Albumin Level 1.9 g/dL (3.5-5.1); Alkaline Phosphatase 69 U/L (38-126); Anion Gap 1 mmol/L (8-16); Aspartate Amino Transferase 12 U/L (17-59); Bilirubin,Total 0.2 mg/dL (0.2-1.3); Blood Urea Nitrogen 24 mg/dL (9-20); CRP 2.2 mg/dL (<1.0); Calcium 7.3 mg/dL (8.4-10.2); Carbon Dioxide 27 mmol/L (22-30); Chloride 107 mmol/L (98-107); Estimated CRCL calculation 131 ml/min; Estimated Glomerular Filt Rate > 60; Glucose 122 mg/dL (75-110); Lactate Dehydrogenase 403 U/L (313-618); Magnesium 1.9 mg/dL (1.6-2.3); Potassium 4.2 mmol/L (3.4-5.0); Sodium 135 mmol/L (137-145)
[2019-11-10 19:03] LABS: Anisocytosis 1+ (NORMAL); Ovalocytes 1+ (NORMAL)
[2019-11-10 19:05] LABS: Target Cells 1+ (NORMAL)
[2019-11-10] MEDS: SODIUM CHLORIDE 0.9% IV 250 ML 30 ML IV CONT (19:45)
[2019-11-10] MEDS: FUROSEMIDE INJ 40 MG/4 ML VIAL 20 MG IV PUSH (19:46)
[2019-11-10] MEDS: hydrALAZINE HCL 20 MG/ML VIAL 10 MG IV PUSH (20:05)
[2019-11-10] MEDS: PANTOPRAZOLE SODIUM IV 40 MG VIAL IV PUSH (20:09)
[2019-11-10] MEDS: CENTRAL LINE FLUSH 10 ML IV PUSH (20:09)
[2019-11-10 23:57] LABS: SARS-CoV-2 RNA PCR Negative
[2019-11-11] VITALS (9 sets, daily range): BP systolic 139–159; BP diastolic 73–92; PULSE 84–125; RESP 21–29; TEMP 36.6–37; O2SAT 89–98
[2019-11-11 00:03] LABS: Hematocrit 27.9 % (42.0-52.0); Hemoglobin 9.5 g/dL (14.0-18.0)
[2019-11-11] MEDS: CENTRAL LINE FLUSH 20 ML IV PUSH (05:37)
[2019-11-11] MEDS: CENTRAL LINE FLUSH 10 ML IV PUSH ×2 (05:37→13:51)
[2019-11-11] MEDS: chlordiazePOXIDE 25 MG CAPSULE 50 MG PO ×2 (05:37→12:02)
[2019-11-11] MEDS: SUCRALFATE SUSP 100 MG/ML 10 ML UDC 1000 MG PO ×2 (05:38→12:03)
[2019-11-11 05:54] LABS: Basophils Percent Auto 0.1 % (0.2-1.2); Hematocrit 28.1 % (42.0-52.0); Hemoglobin 9.5 g/dL (14.0-18.0); Lymphocytes Absolute Auto 0.94 K/mm3 (0.9-3.2); Lymphocytes Percent Auto 9.4 % (18.3-44.2); Mean Corpuscular HGB Conc 33.8 g/dl (32-36); Mean Corpuscular Hemoglobin 32.1 pg (26-34); Mean Corpuscular Volume 94.9 fl (80-100); Mean Platelet Volume 9.9 fl (7.4-10.4); Monocytes Absolute Auto 1.2 K/mm3 (0.1-0.6); Monocytes Percent Auto 12.3 % (2.6-8.5); Neutrophils Absolute Auto 7.7 K/mm3 (1.3-6.7); Neutrophils Percent Auto 77.2 % (45.5-73.1); Platelet Count Result 143 k/mm3 (150-375); Red Blood Count 2.96 M/mm3 (4.6-6.20); Red Cell Distribution Width 19.2 % (11.5-14.5)
[2019-11-11] MEDS: MORPHINE SULFATE 2 MG/ML INJ IV PUSH ×2 (06:00→12:11)
[2019-11-11 06:04] LABS: INR 1.2; Prothrombin Time 15.3 Seconds (11.1-14.7)
[2019-11-11 06:05] LABS: Partial Thromboplastin Time 26.6 SECONDS (22.3-36.8)
[2019-11-11 06:15] LABS: Alanine Aminotransferase 9 U/L (4-50); Albumin Level 2.2 g/dL (3.5-5.1); Alkaline Phosphatase 69 U/L (38-126); Anion Gap 2 mmol/L (8-16); Aspartate Amino Transferase 18 U/L (17-59); Bilirubin,Total 0.6 mg/dL (0.2-1.3); Blood Urea Nitrogen 21 mg/dL (9-20); Calcium 7.6 mg/dL (8.4-10.2); Carbon Dioxide 27 mmol/L (22-30); Chloride 106 mmol/L (98-107); Estimated CRCL calculation 111 ml/min; Estimated Glomerular Filt Rate > 60; Glucose 104 mg/dL (75-110); Potassium 3.8 mmol/L (3.4-5.0); Sodium 135 mmol/L (137-145)
--- NOTE | 2019-11-11 08:04 | PCOTNOTE ---
Hold today per RN due to central line in place. Will attempt OT evaluation when medically appropriate.
[2019-11-11] MEDS: ALBUTEROL SULFATE (*SP) AEROSOL 1 PUFF 2 PUFF INHALATION ×3 (08:53→16:01)
[2019-11-11] MEDS: PANTOPRAZOLE SODIUM IV 40 MG VIAL IV PUSH (09:08)
--- NOTE | 2019-11-11 09:17 | PCPTNOTE ---
PT eval on hold due to femoral line. Will try again when line removed.
--- NOTE | 2019-11-11 09:38 | WPDGIPROGNO ---
Progress Note: A&P Additional Plan Patient alert this morning. Offers no specific complaints. He does have some vague abdominal discomfort. Physical exam reveals patient be alert. No recent stools reported. No active bleeding described. Lungs reveal a few rhonchi. Heart without murmur. Abdomen is soft with tenderness at the rib cage. Labs reveal hemoglobin 9.5 after transfusion hematocrit 28.1 MCV 94. Impression 1. GI bleeding. This appears to have stopped at this time. It is suspected this is from esophageal mass identified by endoscopy 1-2 weeks ago. At the present no plans to repeat endoscopy unless bleeding persists. Continue to monitor hemoglobin. Will treat with proton pump inhibitor as well as Carafate suspension. 2. Esophageal carcinoma. Squamous cell located in mid esophagus. Dr. Faye, oncology follow-up anticipated. 3. Pneumonia. Continued antibiotic therapy. 4. alcohol abuse. Subjective Date/time seen: 11/11/19 09:38 Objective Data Vital Signs Vital Signs: Vital Signs - 24 hr 11/10/19 14:07 11/10/19 16:00 11/10/19 16:09 Temperature 98.1 F 98.3 F Pulse Rate 92 87 103 H Respiratory Rate 22 H 17 32 H Blood Pressure 131/58 L 169/96 H Pulse Oximetry 100 99 98 11/10/19 18:00 11/10/19 20:00 11/10/19 20:31 Temperature 98.1 F Pulse Rate 105 H 110 H Respiratory Rate 19 22 H Blood Pressure 162/85 H 186/103 H Pulse Oximetry 100 97 98 11/10/19 20:35 11/10/19 21:00 11/10/19 21:33 Temperature 97.7 F Pulse Rate 107 H 131 H Respiratory Rate 22 H 28 H Blood Pressure 117/74 117/74 Pulse Oximetry 97 11/10/19 21:49 11/10/19 22:49 11/10/19 23:41 Temperature 97.9 F 97.7 F 98.6 F Pulse Rate 99 99 100 Respiratory Rate 28 H 23 H 25 H Blood Pressure 125/75 125/89 136/81 Pulse Oximetry 97 99 96 11/11/19 00:00 11/11/19 02:00 11/11/19 04:00 Temperature 98.6 F 98.4 F Pulse Rate 103 H 102 H 84 Respiratory Rate 21 H 28 H 25 H Blood Pressure 150/78 H 159/73 H 158/75 H Pulse Oximetry 98 98 92 11/11/19 06:00 11/11/19 08:00 11/11/19 08:54 Temperature 98.2 F 98.0 F Pulse Rate 119 H 104 H 100 Respiratory Rate 26 H 28 H 21 H Blood Pressure 147/92 H 159/86 H Pulse Oximetry 96 98 97 Intake/Output Intake/Output: Intake & Output 11/08/19 11/09/19 11/10/19 11/11/19 23:59 23:59 23:59 23:59 Intake Total 354 100 Output Total 600 1300 Balance -246 -1200 Meds/Results Medications: Active Medications Generic Name Dose Route Start Last Admin Trade Name Freq PRN Reason Stop Dose Admin Acetaminophen 650 mg 11/10/19 15:05 Tylenol Elixir PO Q6H PRN Mild Pain (1-3) or Fever Albuterol 2 puff 11/10/19 16:00 11/11/19 08:53 Proventil Hfa INHALATION 2 puff QIDRT SHAZIA Administration Chlordiazepoxide HCl 50 mg 11/10/19 18:00 11/11/19 05:37 Librium Po PO 50 mg Q6HR SHAZIA Administration Hydralazine HCl 10 mg 11/10/19 19:18 11/10/19 20:05 Apresoline Hcl Inj IV PUSH 10 mg Q6H PRN Administration Blood Pressure - High Piperacillin/Tazobactam/Dextrose 3.375 gm in 50 mls @ 100 mls/hr 11/10/19 19:00 11/11/19 09:11 Zosyn 3.375 Gm/D5w 50ml Pm IVPB Infused Q6HR SHAZIA Infusion Lorazepam 1 mg 11/10/19 15:08 11/11/19 05:38 Ativan Inj IV PUSH 1 mg Q4H PRN Administration Anxiety Morphine Sulfate 2 mg 11/10/19 15:05 11/11/19 06:00 Morphine Sulfate Inj IV PUSH 2 mg Q6H PRN Administration Pain Rated 7-10 Ondansetron HCl 4 mg 11/10/19 14:07 Zofran Inj IV PUSH Q6H PRN Nausea And Vomiting Pantoprazole Sodium 40 mg 11/10/19 21:00 11/11/19 09:08 Protonix Iv IV PUSH 40 mg Q12HR SHAZIA Administration Sodium Chloride 10 ml 11/10/19 22:00 09/02/20 05:37 Central Line Flush IV PUSH 10 ml Q8HR SHAZIA Administration Sodium Chloride 20 ml 11/10/19 18:45 11/11/19 05:37 Central Line Flush IV PUSH 20 ml PRN PRN Administration after blood draws
[2019-11-11 10:10] LABS: Hematocrit 28.1 % (42.0-52.0); Hemoglobin 9.5 g/dL (14.0-18.0)
--- NOTE | 2019-11-11 11:00 | PCSTNOTE ---
Please refer to the Bedside Swallow Evaluation in the EMR.
[2019-11-11] MEDS: POTASSIUM/PHOSPHORUS/SODIUM 1.5 GM PACKET 1 PACKET PO (12:03)
--- NOTE | 2019-11-11 13:43 | WPDINTPN ---
Progress Note: A&P Assessment and Plan (1) GI bleed: Qualifiers: GI bleed type/associated pathology: melena Qualified Code(s): K92.1 - Melena Code(s): K92.2 - Gastrointestinal hemorrhage, unspecified Status: Acute Assessment and Plan: patient presented with melena, known esophageal malignancy on recent EGD done on 10/19/2019 - patient continues to drink alcohol which may be causing irritation and bleeding - discussed with Gastroenterology, continue PPI IV q.12 hours and Carafate suspension q.6 hours, will defer repeat EGD - will start clear liquid diet and advance as tolerated - patient received 3 units of packed RBCs and 1 unit of FFP since admission - hemoglobin remains stable (2) Anemia: Qualifiers: Anemia type: unspecified type Qualified Code(s): D64.9 - Anemia, unspecified Code(s): D64.9 - Anemia, unspecified Status: Acute Assessment and Plan: hemoglobin 6.7 this morning at the outside hospital, received 3 units of packed RBC and 1 unit of FFP since admission - hemoglobin has been stable on the last few H&H - monitor H&H Q 6 hours - will transfuse as needed (3) RLL pneumonia: Qualifiers: Pneumonia type: due to unspecified organism Qualified Code(s): J18.9 - Pneumonia, unspecified organism Code(s): J18.9 - Pneumonia, unspecified organism Status: Acute Assessment and Plan: right lower and right middle lobe pneumonia, chest x-ray improving - continue Zosyn (4) Acute UTI: Code(s): N39.0 - Urinary tract infection, site not specified Status: Inactive Assessment and Plan: Enterococcus UTI, susceptible to ampicillin, continue Zosyn - blood cultures negative x2 so far (5) Rib fracture: Code(s): S22.39XA - Fracture of one rib, unspecified side, initial encounter for closed fracture Status: Acute Assessment and Plan: left-sided rib fractures as seen on CT scan of the abdomen - pain control with morphine (6) Multiple falls: Code(s): R29.6 - Repeated falls Status: Acute Assessment and Plan: will have PT/OT evaluate the patient (7) ETOHism: Code(s): F10.20 - Alcohol dependence, uncomplicated Status: Acute Assessment and Plan: patient had elevated alcohol levels on admission on 11/06/2019 - Patient states he feels vince - CIWA protocol in place, p.r.n. Ativan - Librium started (8) Mass of esophagus determined by endoscopy: Code(s): K22.8 - Other specified diseases of esophagus Status: Acute Assessment and Plan: EGD on 10/19/2019 showed esophageal ulcerative mass that was malignant appearing, endoscopic biopsy revealed moderately differentiated squamous cell carcinoma invading this more muscle. - GI following the patient - appreciate heme Oncology evaluation recommendation, discussed with Dr. Faye who recommended him to be transferred to [facility] but he will be seeing an oncologist be treated if necessary by cardiothoracic surgery. (9) Suspected 2019 novel coronavirus infection: Code(s): Z20.828 - Contact with and (suspected) exposure to other viral communicable diseases Status: Acute Assessment and Plan: SARS-CoV-2 PCR Negative for COVID-19 19 - discontinue droplet, airborne and contact isolation /precautions Additional Plan discussed with patient in details and updated with his condition and plan of care. Discussed with GI and heme Oncology code status: Full code critical care time spent:34 Minutes Due to a high probability of clinically significant, life threatening deterioration, the patient required my highest level of preparedness to intervene emergently and I personally spent this critical care time directly and personally managing the patient. This critical care time included obtaining a history; examining the patient; pulse oximetry; ordering and review of studies; arranging
--- NOTE | 2019-11-11 14:47 | PCWOUND ---
WOCN NOTE Received referral to assess patients buttock and back. SPoke to RN, patient is being transferred to [facility] no assessment needed at this time.
--- NOTE | 2019-11-11 15:17 | PM.TDS ---
Transfer Discharge Sum: Prov Provider Date of admission: 11/10/19 14:08 Primary care physician: Shirin Murray MD Admitting clinician: Kota Salinas MD Consults: 11/10/19 Consult to Physician Routine Comment: OFFICE NOTIFIED OF CONSULT Consulting Provider: Eliel Cerrato bingo caller/MD group to consult: GI Reason for consultation: Anemia, GI bleed Has provider been notified: Yes 11/10/19 15:24 Consult to Physician Routine Comment: OFFICE NOTIFIED OF CONSULT Consulting Provider: Carroll Faye bingo caller/MD group to consult: Dr. Faye Reason for consultation: esophageal malignancy Has provider been notified: Yes 11/11/19 Wound/ET Consult Routine Reason for Consult:: open area to lisa buttocks open area to mid/lower back Attending physician on discharge: Renan Hernandez Discharging clinician: Renan Hernandez Anticipated date of transfer: 11/11/19 Receiving physician/facility: [facility] DS: Admitting Diagnosis Admitting Diagnosis Admitting Diagnosis: GI Bleed DS: Discharge Diagnosis Discharge Diagnosis (1) Upper GI bleed: Code(s): K92.2 - Gastrointestinal hemorrhage, unspecified Status: Acute Assessment and Plan: GI consulted. Patient is on IV Protonix and Carafate. hgb 6.7 yesterday and patient received 1 unit of packed red blood cells last night. It was noted that patient had melena stool. The patient has a history of having esophageal cancer. Hgb climbed into the 9 range and has been stable. (2) RLL pneumonia: Qualifiers: Pneumonia type: due to unspecified organism Qualified Code(s): J18.9 - Pneumonia, unspecified organism Code(s): J18.9 - Pneumonia, unspecified organism Status: Acute Assessment and Plan: Patient was started on Zosyn. BCx NGTD. Sputum specimen ordered. (3) Urinary tract infection: Qualifiers: Hematuria presence: without hematuria Urinary tract infection type: acute cystitis Qualified Code(s): N30.00 - Acute cystitis without hematuria Code(s): N39.0 - Urinary tract infection, site not specified Status: Acute Assessment and Plan: Patient had a positive urine culture for Enterococcus on 11/05 and was started on Zosyn. (4) Rib fracture: Code(s): S22.39XA - Fracture of one rib, unspecified side, initial encounter for closed fracture Status: Acute Assessment and Plan: CXR showing left sided rib fractures. Continue supportive care. Morphine available for the rib pain. (5) ETOHism: Code(s): F10.20 - Alcohol dependence, uncomplicated Status: Acute Assessment and Plan: We started CIWA protocol. He was monitored for signs and symptoms of withdrawal. Start thiamine. P.r.n. Ativan available. Scheduled Librium started. (6) Suspected 2019 novel coronavirus infection: Code(s): Z20.828 - Contact with and (suspected) exposure to other viral communicable diseases Status: Acute Assessment and Plan: COVID swab negative. (7) Squamous cell carcinoma of esophagus: Code(s): C15.9 - Malignant neoplasm of esophagus, unspecified Status: Acute Assessment and Plan: Hematology oncology were consulted and they recommended transfer to [facility]. Transfer Discharge Sum: Med Medications Active and Home Medications: Home Medications ferrous sulfate 324 mg PO DAILY 30 Days #30 tablet 03/02/19 [Rx Confirmed 11/10/19] albuterol sulfate 2 puff INHALATION Q6H PRN #60 g 05/27/19 [Rx Confirmed 11/10/19] fluticasone propionate 2 spray INTRANASAL HS #30 ml 05/27/19 [Rx Confirmed 11/10/19] levothyroxine 25 mcg PO DAILY@0630 #30 tablet 05/27/19 [Rx Confirmed 11/10/19] potassium chloride 20 meq PO EVERY OTHER DAY #30 tablet 05/27/19 [Rx Confirmed 11/10/19] trazodone 100 mg PO HS PRN #30 tablet 05/27/19 [Rx Confirmed 11/10/19] atorvastatin 10 mg PO DAILY 06/30/19 [History Confirmed
--- NOTE | 2019-11-11 16:12 | PC.NURSE ---
Pt transported via [facility] to [facility]. topher Campbell, notified of transfer. Femoral line intact as well as 2 peripheral IV's. Tierney catheter in place. Belongings sent w/ patient.
--- NOTE | 2019-11-11 16:46 | PDONCCN ---
HPI - Date of Consult Date/Time: 11/11/19 16:47 Requesting Physician: Kota Salinas MD Primary Care Provider: Shirin Murray MD - Consult Narrative Reason for consult: Esophageal cancer Narrative: Calixto Lyons is a 59 year old male This is a 59-year-old male with history of alcoholism and neuropathy secondary to a goal abuse along with history of DVT. He also has a previous history of thyroid cancer status post thyroidectomy in the past. Patient was recently admitted to the hospital when he was found to be quite anemic and CT scan of the chest was performed that showed mid esophageal wall thickening. He had EGD done that showed malignant-appearing esophageal mass and the biopsy came back positive for squamous cell carcinoma of esophagus. He now came back into the hospital with tiredness and fatigue and found to have him a globin of 6.7. He received 2 units of packed red blood cell. He denies any further rectal bleeding. He remains quite tired and fatigued. He was instructed to have a PET scan and consultation with Dr. Peter Atwood. He missed his appointment yesterday and he was admitted to the hospital. Review of Systems - Review of Systems All systems reviewed & are unremarkable except as noted in HPI and bel - Neurologic Reports system reviewed and no additional complaints, except as documented PMF Medical History: Medical History (Last Updated 11/10/19 @ 17:27 by Sarahi Bacon NP) Abnormal colonoscopy Abnormal EKG Acute hypokalemia Acute UTI Alcohol abuse Anxiety Benign prostatic hyperplasia Chronic anemia Compression fracture Including thoracic and lumbar compression fractures. 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 Deep venous thrombosis Left femoral vein, left internal jugular, and let axillary veins noted on ultrasound in May 2019. Hepatic steatosis Hypertension Hypomagnesemia Kidney stones Major depression Nicotine use disorder Peptic ulcer disease Remote history of perforated peptic ulcer status post partial gastrectomy. Peripheral neuropathy Substance abuse Suicidal ideation Thyroid cancer Status post partial thyroidectomy. Previously on levothyroxine. Type 2 FL (myocardial infarction) Onset Date: ~08/2016 No ischemic cardiac evaluation was undertaken. Surgical History: Surgical History (Last Reviewed 11/10/19 @ 17:29 by Sarahi Bacon NP) H/O esophagogastroduodenoscopy History of cholecystectomy History of hernia repair Multiple ventral hernia repairs including incisional hernia repair, some with mesh. History of partial gastrectomy For perforated peptic ulcer. History of partial thyroidectomy For thyroid cancer. Family History: Family History (Last Reviewed 11/10/19 @ 17:29 by Sarahi Bacon NP) Father Cancer Mother Dementia - Social History Social History: Social History (Last Updated 11/10/19 @ 17:31 by Sarahi Bacon NP) Gender Identity: Gender identity (if verbalized by the patient): Male Alcohol Use: Alcohol intake: current Substance Use: Substance use type: does not use Others: Spiritual care concerns: No Agree to blood products: Yes Living Arrangements: Living arrangements: alone Smoking Status: Smoking status: Light tobacco smoker Tobacco type: cigarettes Second hand tobacco smoke exposure: Yes Smoking Pack-years: Smoking packs per day: 0.5 Smoking cigarettes per day: 10.0 Years smoked: 40 Smoking pack-years: 20.00 Comments: Additional smoking assessment comments: Typically smokes between 2 and 6 cigarettes a day. Meds Home Medications Medication Instructions Recorded Confirmed Type ferrous sulfate 324 mg PO DAILY 30 Days #30 tablet 03/02/19 11/10/19 Rx albuterol sulfate 2 puff INHALATION Q6H PRN #60 g 05/27/19 11/10/19 Rx fluticasone propionate 2 spray INT
== END 2019-11-11 16:28 | disposition short-term general hospital (02) | DRG 374 ==
PROVIDERS: Internal Medicine; Admitting Provider Family Medicine; PCP Internal Medicine; Visit Provider Internal Medicine
DX: C15.9 Malignant neoplasm of esophagus, unspecified (principal); J18.9 Pneumonia, unspecified organism; K92.2 Gastrointestinal hemorrhage, unspecified; D62 Acute posthemorrhagic anemia; S22.32XA Fracture of one rib, left side, initial encounter for closed fracture; N39.0 Urinary tract infection, site not specified; Z20.828 Contact with and (suspected) exposure to other viral communicable diseases; B95.2 Enterococcus as the cause of diseases classified elsewhere; F10.20 Alcohol dependence, uncomplicated; G62.9 Polyneuropathy, unspecified; K70.10 Alcoholic hepatitis without ascites; F17.210 Nicotine dependence, cigarettes, uncomplicated; W19.XXXA Unspecified fall, initial encounter; Z79.01 Long term (current) use of anticoagulants; Z86.718 Personal history of other venous thrombosis and embolism; Z90.49 Acquired absence of other specified parts of digestive tract; N40.0 Benign prostatic hyperplasia without lower urinary tract symptoms; Z87.11 Personal history of peptic ulcer disease; Z85.850 Personal history of malignant neoplasm of thyroid
CPT/HCPCS: 36415; 36430; 71045; 80053; 82728; 83605; 83615; 83735; 84100; 85014; 85018; 85025; 85380; 85610; 85730; 86140; 86850; 86900; 86901; 86923; 87086; 87635; 92610; 94640; A9270; C1751; C9113; C9803; J0360; J1940; J2060; J2270; J2543; J7050; P9016; U0003

== ENCOUNTER 2019-12-15 08:32 | Outpatient (CLI) | payer MEDICARE, MEDICAID, SELFPAY ==
--- NOTE | ~2019-12-15 | PE_ITS ---
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 11.458 mCi of 18-fluorodeoxyglucose (18-FDG) was adminis tered i.v. Low dose computed tomography (CT) images were acquired from the base of the brain to the p roximal thighs for attenuation correction and anatomic localization. Positron emission tomography (PE T) images were acquired in the same distribution beginning 52 minutes after injection. Images includi ng fused PET/CT images were reconstructed in axial, coronal, and sagittal planes. Automated exposure control technique was employed. The dose-length product was 942.01mGy-cm. COMPARISON: CT abdomen and pelvis dated 11/10/[address] dated 11/06/2019 FINDINGS: Head/neck: There is symmetric increased activity in the oral cavity, palatine tonsils, laryngeal muscles and ocu lar muscles without CT correlate, likely physiologic. No pathologically enlarged cervical lymphadenop athy or suspicious foci of increased FDG uptake in the visualized head or neck. Chest: Again seen is asymmetric anterior wall thickening along a short segment of the mid esophagus centered approximately 2 cm above the wade with moderately increased FDG uptake with maximal SUV of 5.8. Sm all bilateral pleural effusions with dependent atelectasis in the bilateral lower lobes. Again seen a re regions of groundglass opacity in the right upper lobe which appear increased in extent since the most recent chest CT. Numerous small centrilobular nodules which are more difficult to discern in the current study due to respiratory motion which appear slightly improved in the right lower lobe and i ncreased in extent in the left lower lobe including the superior segment. Each of these findings appe ars new since the earlier CT dated 10/20/2019 with appearance and chronologic development most consist ent with pneumonia. Cardiomegaly. Atherosclerotic coronary artery calcification. No pathologically en larged or FDG avid thoracic lymphadenopathy. There is advanced osteoarthritis at the right glenohumer al joint. There is also osteoarthritis at the bilateral acromioclavicular joints with associated mild increased synovial FDG uptake. Right internal jugular central venous port catheter with distal tip a t the high right atrium. Multiple chronic lower thoracic compression fractures. Mild increased FDG up take associated with healing subacute to early chronic left 7th-12th rib fractures. A few old healed right-sided rib fractures. No other suspicious lytic, blastic or FDG avid bone lesions. Abdomen/pelvis/proximal thighs: Physiologic renal accumulation and excretion of FDG activity in the kidneys, bladder and along portio ns of ureters. Nonobstructing 6 mm left renal stone. There are few scattered colonic diverticula with out adjacent inflammatory change to suggest diverticulitis. Normal degree and heterogenous pattern of increased uptake throughout the liver without radiologic correlate or dominant FDG avid lesion. Norm al appendix. Cholecystectomy clips the gallbladder fossa. The pancreas, spleen and bilateral adrenal glands are normal. Mild uptake scattered throughout the bowels without radiologic correlate, also lik john physiologic. No other abnormal foci of increased FDG uptake or pathologically enlarged lymphadeno yung in the abdomen, pelvis or proximal thighs. A few chronic lumbar compression and burst fractures . No suspicious lytic, blastic or FDG avid bone lesions. 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 IMPRESSION: 1. Short segment of asymmetric anterior wall thickening at the mid esophagus with moderately increase d FDG uptake consistent with provided history of esophageal cancer. No evident metastatic disease. 2. Persistent lung disease in the right upper and bilateral lower lobes which is new since 10/20/2019 co
[2019-12-15 09:21] LABS: Glucose Point of Care 92 (65-105)
== END 2019-12-15 08:33 | disposition home or self-care (01) ==
PROVIDERS: PCP Internal Medicine; Visit Provider Internal Medicine Hematology & Oncology
DX: C15.4 Malignant neoplasm of middle third of esophagus (principal); J90 Pleural effusion, not elsewhere classified; I51.7 Cardiomegaly; N20.0 Calculus of kidney; R91.8 Other nonspecific abnormal finding of lung field
CPT/HCPCS: 78815; A9552

== ENCOUNTER 2020-01-11 16:45 | Inpatient (IN) | payer MEDICARE, MEDICAID, SELFPAY ==
--- NOTE | ~2020-01-11 | CT_ITS ---
EXAMINATION: CT chest w con DATE: 01/13/2020 12:34 INDICATION: Chest pain, history of thyroid and esophageal cancer TECHNIQUE: Transaxial computed tomographic images of the chest were obtained after the administration of 75 cc of Omnipaque 350 intravenous contrast. The dose-length product (DLP) was 323.16 mGy-cm. Ite rative reconstruction was used. COMPARISON: PET CT, 12/15/2019 FINDINGS: There are small pleural effusions. The previously described airspace opacities of the right upper lobe have nearly completely resolved, consistent with infection/inflammation. There is mild pa ssive dependent atelectasis related to the pleural effusions. No focal airspace opacity is identified . A short segment of esophageal wall thickening is again is noted in the mid esophagus, likely relate d to the patient's known malignancy. A right internal jugular Port-A-Cath ends with its tip in the di stal superior vena cava. The heart size is normal. There is calcified coronary artery atherosclerosis . No pathologically enlarged thoracic lymph nodes are identified. The gallbladder is surgically absen t. A nonobstructing stone is noted in the left kidney upper pole. There is advanced osteoarthritis of the shoulders. Bilateral rib fractures are also noted. IMPRESSION: 1. No CT correlate for chest pain. 2. Mild wall thickening of the midesophagus, likely reflecting known malignancy. 3. Small pleural effusions with passive atelectasis. 4. Resolved right lung airspace opacities, consistent with infection/inflammation. Reviewed, dictated and finalized at location A. OR QUALITY CONTROL TECHNICIAN IMPRESSION: 1. No CT correlate for chest pain. 2. Mild wall thickening of the midesophagus, likely reflecting known malignancy . 3. Small pleural effusions with passive atelectasis. 4. Resolved right lung airspace opacities, consistent with infection/inflammati on.
--- NOTE | ~2020-01-11 | XR_ITS ---
EXAMINATION: XR chest 1V portable DATE: 01/11/2020 17:43 INDICATION: Chest pain. Shortness of breath. TECHNIQUE: A single frontal view of the chest was obtained. COMPARISON: Chest single view 11/11/2019, PET CT 12/15/2019 FINDINGS: The chest demonstrates clear lungs without pneumonia, pleural effusion, or pneumothorax. Th e heart size is normal. There is a right internal jugular port with tip in right atrium. IMPRESSION: 1. No acute cardiopulmonary disease. Reviewed, dictated and finalized at location A. REPAIR PERSON
--- NOTE | 2020-01-11 16:50 | PC.NURSE ---
Pt's soiled bottoms changed and pt cleaned. depends placed on pt. Pt states he has been sitting in his urine x 2 days.
[2020-01-11 17:04] VITALS: BP 136/79; PULSE 103; RESP 16; TEMP 36.7; O2SAT 99
--- NOTE | 2020-01-11 17:06 | ECG_ITS ---
Measurements Intervals [place] Rate: 91 P: 52 ND: 184 QRS: 37 QRSD: 89 T: 38 QT: 405 QTc: 500 Interpretive Statements SINUS RHYTHM BASELINE ARTIFACT- V1 NORMAL ECG Electronically Signed On 01-11-2020 18:38:02 REHABILITATION SERVICES MANAGER by Cruz PARK
[2020-01-11 17:24] VITALS: PULSE 103
[2020-01-11] MEDS: SODIUM CHLORIDE 0.9% IV 1,000 ML 999 ML IV CONT (17:35)
[2020-01-11 17:43] VITALS: BP 143/86; PULSE 91; RESP 14; O2SAT 98
[2020-01-11 17:44] LABS: Basophils Absolute Auto 0.02 K/mm3 (0.00-0.10); Basophils Percent Auto 0.4 % (0.0-1.0); Hematocrit 36.8 % (40.0-54.0); Hemoglobin 11.6 g/dL (14.0-18.0); Immature Granulocyte Absolute 0.04 K/mm3 (0.00-0.00); Immature Granulocyte Percent A 0.8 % (0.0-0.0); Lymphocytes Absolute Auto 0.43 K/mm3 (1.10-4.50); Mean Corpuscular HGB Conc 31.5 g/dL (32.0-36.0); Mean Corpuscular Hemoglobin 30.1 pg (27.0-31.0); Mean Corpuscular Volume 95.6 fL (78.0-102.0); Mean Platelet Volume 8.6 fl (8.7-11.0); Monocytes Absolute Auto 0.38 K/mm3 (0.10-0.90); Monocytes Percent Auto 7.9 % (2.0-11.0); Neutrophils Absolute Auto 3.9 K/mm3 (1.7-7.2); Neutrophils Percent Auto 81.9 % (50.0-70.0); Platelet Count Result 159 K/mm3 (150-420); Red Blood Count 3.85 M/mm3 (4.70-6.10); Red Cell Distribution Width 17.1 % (11.6-14.4); White Blood Count 4.8 K/mm3 (4.8-10.8)
[2020-01-11 18:02] LABS: Lactic Acid Reflex 2.4 mmol/L (0.4-2.0)
[2020-01-11 18:07] LABS: Alanine Aminotransferase 19 U/L (16-63); Albumin Level 2.5 g/dL (3.4-5.0); Alkaline Phosphatase 57 U/L (46-116); Anion Gap 20 mmol/L (8-16); Aspartate Amino Transferase 35 U/L (15-37); Bilirubin,Total 0.4 mg/dL (0.00-1.00); Blood Urea Nitrogen 11 mg/dL (7-18); Calcium 7.4 mg/dL (8.5-10.1); Carbon Dioxide 17 mmol/L (21-32); Chloride 102 mmol/L (98-108); Estimated CRCL calculation 99 ml/min; Estimated Glomerular Filt Rate > 60; Osmolality Calculated 283 mOsm/kg (285-295); Potassium 4.1 mmol/L (3.5-5.1); Sodium 139 mmol/L (136-145); Total Protein 5.8 g/dL (6.4-8.2)
[2020-01-11 18:08] LABS: Glucose 29 mg/dL (70-99)
[2020-01-11 18:09] LABS: Ethanol 383 mg/dL (0-6); Troponin I < 0.02 ng/mL (0.00-0.056)
[2020-01-11 18:10] LABS: Thyroid Stimulating Hormone 1.65 uIU/mL (0.36-3.74)
[2020-01-11 18:13] LABS: Glucose Point of Care < 33 (65-105)
[2020-01-11] MEDS: DEXTROSE 5%/0.9% SOD CHL 1,000 ML 999 ML IV CONT (18:25)
--- NOTE | 2020-01-11 18:33 | ED.CHESTPAIN ---
HPI - Chest Pain General Chief Complaint: Chest Pain Stated Complaint: AMB Source: patient and EMS Mode of arrival: EMS Limitations: altered mental status and physical limitation History of Present Illness HPI narrative: this is a 59-year-old male presents to the emergency department via EMS with increased weakness has been chronic alcohol abuser and has been drinking over the last 24 hours or so with chest heaviness, with no radiation of his chest pain no diaphoresis no shortness of breath, there is currently no nausea vomiting no abdominal pain no fever chills. 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 Patient has been hospitalized back in November at [place] and transferred to [facility] for rehabilitation after he was found to have an upper GI bleed. Currently there is no hemoptysis, no nausea or vomiting and no no GI bleed. MD complaint: chest discomfort Onset (ago): day(s) Timing of current episode: constant Onset: during rest Pain location: parasternal Pain radiation: none Severity: mild Quality: aching Relieving factors: nothing Exacerbating factors: nothing Risk Factors Coronary artery disease risk factors: hypertension Related Data Home Medications Medication Instructions Recorded Confirmed atorvastatin 10 mg PO DAILY 06/30/19 01/11/20 calcitriol 0.5 mcg PO DAILY 06/30/19 01/11/20 tamsulosin 0.8 mg PO DAILY 06/30/19 01/11/20 finasteride 5 mg PO DAILY 12/10/19 01/11/20 folic acid 1 mg PO DAILY 12/10/19 01/11/20 furosemide 20 mg PO DAILY 12/10/19 01/11/20 guaifenesin 200 mg PO Q4H PRN 12/10/19 01/11/20 hydrocodone-acetaminophen [[place]] 1 tablet PO Q4H PRN 12/10/19 01/11/20 pantoprazole [Protonix] 40 mg PO QAM 12/10/19 01/11/20 thiamine mononitrate (vit B1) 100 mg PO DAILY 12/10/19 01/11/20 Allergies Allergy/AdvReac Type Severity Reaction Status Date / Time No Known Allergies Allergy Verified 12/10/19 10:32 Review of Systems Review of Systems: All systems reviewed & are unremarkable except as noted in HPI and below PMFSH Past Medical History Medical History Abnormal colonoscopy Abnormal EKG Acute hypokalemia Acute UTI Alcohol abuse Anxiety Benign prostatic hyperplasia Chronic anemia Compression fracture Including thoracic and lumbar compression fractures. 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 Deep venous thrombosis Left femoral vein, left internal jugular, and let axillary veins noted on ultrasound in May 2019. Hepatic steatosis Hypertension Hypomagnesemia Kidney stones Major depression Nicotine use disorder Peptic ulcer disease Remote history of perforated peptic ulcer status post partial gastrectomy. Peripheral neuropathy Substance abuse Suicidal ideation Thyroid cancer Status post partial thyroidectomy. Previously on levothyroxine. Type 2 [place] (myocardial infarction) (~08/2016) No ischemic cardiac evaluation was undertaken. Surgical History Surgical History H/O esophagogastroduodenoscopy History of cholecystectomy History of hernia repair Multiple ventral hernia repairs including incisional hernia repair, some with mesh. History of partial gastrectomy For perforated peptic ulcer. History of partial thyroidectomy For thyroid cancer. Family History Family History Father Cancer Mother Dementia Social History Social History Social History: patient has 2 children a son and a daughter. Patient is disable Surrogate decision maker: Flaquita
[2020-01-11 18:47] LABS: Glucose Point of Care 122 (65-105)
[2020-01-11 19:33] VITALS: BP 156/81; PULSE 108; RESP 18; O2SAT 98
[2020-01-11 20:00] VITALS: BP 166/87; PULSE 99; RESP 16; TEMP 37.2; O2SAT 98
[2020-01-11 20:04] VITALS: PULSE 99; RESP 16; O2SAT 98
[2020-01-11 20:08] VITALS: BMI 60.5
[2020-01-11] MEDS: DEXTROSE 5%/0.9% SOD CHL 1,000 ML 100 ML IV CONT (20:25)
[2020-01-11] MEDS: MORPHINE SULFATE (*CRX) 2 MG/ML INJ IV PUSH (20:36)
[2020-01-11 20:40] LABS: Reflex Lactic Acid Yes or No Add Lactic
[2020-01-11] MEDS: MAG HYDROX/AL HYDROX/SIMETH 30 ML UDC PO (20:41)
[2020-01-11] MEDS: traZODone HCL 50 MG TABLET 100 MG PO (20:42)
--- NOTE | 2020-01-11 21:12 | PC.NURSE ---
Patient arrived from ER on [facility]. Transferred to bed with SBA. Alcohol level elevated-speech slurred. Patient demanding and belligent. Oriented to room and call light. Easily distracted and short with admission questions. call light in reach. Fluids provided and in reach.
[2020-01-11 21:13] LABS: Lactic Acid 2.7 mmol/L (0.4-2.0)
[2020-01-11 21:19] LABS: Glucose Point of Care 249 (65-105)
[2020-01-12] VITALS: BP 123/77; PULSE 120; RESP 18; TEMP 36.3; O2SAT 97
[2020-01-12] MEDS: MORPHINE SULFATE (*CRX) 2 MG/ML INJ IV PUSH ×3 (01:03→09:23)
[2020-01-12] MEDS: chlordiazePOXIDE (*CRX) 10 MG CAPSULE PO ×3 (05:09→21:06)
[2020-01-12] MEDS: LEVOTHYROXINE SODIUM 25 MCG TABLET PO (05:29)
[2020-01-12] MEDS: DEXTROSE 5%/0.9% SOD CHL 1,000 ML 100 ML IV CONT (06:28)
[2020-01-12 07:35] LABS: Glucose Point of Care 119 (65-105)
[2020-01-12 08:00] VITALS: BP 121/79; PULSE 136; RESP 16; TEMP 36.7; O2SAT 98
[2020-01-12] MEDS: THIAMINE HCL 100 MG TABLET PO (08:08)
[2020-01-12 08:09] VITALS: PULSE 133
[2020-01-12] MEDS: TAMSULOSIN HCL 0.4 MG CAPSULE 0.8 MG PO (08:09)
[2020-01-12] MEDS: METOPROLOL TARTRATE 25 MG TABLET PO ×2 (08:09→16:48)
[2020-01-12] MEDS: FOLIC ACID 1 MG TABLET PO (08:09)
[2020-01-12] MEDS: MAGNESIUM OXIDE 400 MG TABLET PO (08:09)
[2020-01-12] MEDS: calcitrioL 0.25 MCG CAPSULE 0.5 MCG PO (08:09)
[2020-01-12] MEDS: ATORVASTATIN 10 MG TABLET PO (08:09)
[2020-01-12] MEDS: PANTOPRAZOLE 40 MG TABLET PO (08:09)
[2020-01-12] MEDS: FINASTERIDE 5 MG TABLET PO (08:09)
[2020-01-12] MEDS: FERROUS SULFATE 324 MG TABLET PO (08:13)
[2020-01-12 08:24] LABS: Hematocrit 31.7 % (40.0-54.0); Hemoglobin 10.2 g/dL (14.0-18.0); Mean Corpuscular HGB Conc 32.2 g/dL (32.0-36.0); Mean Corpuscular Hemoglobin 30.3 pg (27.0-31.0); Mean Corpuscular Volume 94.1 fL (78.0-102.0); Mean Platelet Volume 8.9 fl (8.7-11.0); Platelet Count Result 142 K/mm3 (150-420); Red Blood Count 3.37 M/mm3 (4.70-6.10); Red Cell Distribution Width 16.8 % (11.6-14.4); White Blood Count 3.9 K/mm3 (4.8-10.8)
[2020-01-12 08:46] LABS: Alanine Aminotransferase 17 U/L (16-63); Albumin Level 2.2 g/dL (3.4-5.0); Alkaline Phosphatase 50 U/L (46-116); Anion Gap 12 mmol/L (8-16); Aspartate Amino Transferase 25 U/L (15-37); Bilirubin,Total 0.5 mg/dL (0.00-1.00); Blood Urea Nitrogen 8 mg/dL (7-18); Calcium 6.8 mg/dL (8.5-10.1); Carbon Dioxide 22 mmol/L (21-32); Chloride 103 mmol/L (98-108); Estimated CRCL calculation 164 ml/min; Estimated Glomerular Filt Rate > 60; Ethanol 29 mg/dL (0-6); Glucose 117 mg/dL (70-99); Magnesium 1.7 mg/dL (1.8-2.4); Osmolality Calculated 283 mOsm/kg (285-295); Potassium 3.8 mmol/L (3.5-5.1); Sodium 137 mmol/L (136-145); Total Protein 5.1 g/dL (6.4-8.2)
[2020-01-12 08:47] LABS: Band Neutrophils Percent 4 % (0-6); Lymphocytes Absolute Manual 0.46 K/mm3 (1.1-4.5); Lymphocytes Percent Manual 12 % (18-44); Monocytes Absolute Manual 0.35 K/mm3 (0.1-0.90); Monocytes Percent Manual 9 % (3-9); Neutrophils Absolute Manual 3.08 K/mm3 (1.3-6.7); Neutrophils Percent Manual 75 % (46-73); Platelet Estimate Adequate (Adequate); Total Cells Counted 100
[2020-01-12 08:52] LABS: Lactic Acid Reflex 2.3 mmol/L (0.4-2.0)
[2020-01-12] MEDS: MAGNESIUM SULF 2 GM/WATER 50ML 2 GM/50 ML BAG IVPB (09:24)
[2020-01-12 11:17] LABS: Reflex Lactic Acid Yes or No Add Lactic
[2020-01-12 11:35] LABS: Glucose Point of Care 137 (65-105)
[2020-01-12 12:37] LABS: Lactic Acid 1.3 mmol/L (0.4-2.0)
--- NOTE | 2020-01-12 13:02 | PM.DS ---
DS: Admitting Diagnosis Admitting Diagnosis Admitting Diagnosis: Hypoglycemia DS: Summary Time Spent with Patient Time attestation: Total time spent providing and/or coordinating discharge services: DS: Data Data Completed and Pending Labs on day of discharge: Labs from last 24 hours 01/12/20 01/12/20 01/12/20 12:10 11:33 07:45 WBC RBC Hgb Hct MCV MCH MCHC RDW Plt Count MPV Immature Gran % (Auto) Neut % (Auto) Lymph % (Auto) [place] % (Auto) Eos % (Auto) Baso % (Auto) Lymph # (Auto) [place] # (Auto) Eos # (Auto) Baso # (Auto) Abs Immat Gran (auto) Absolute Neuts (auto) Absolute Nucleated RBC Total Counted Neutrophils % (Manual) Band Neutrophils % Lymphocytes % (Manual) Monocytes % (Manual) Nucleated RBC % Abs Neuts (Manual) Abs Lymphs (Manual) Abs Monocytes (Manual) Platelet Estimate Sodium 137 Potassium 3.8 Chloride 103 Carbon Dioxide 22 Anion Gap 12 BUN 8 Creatinine 0.68 L Estim Creat Clear Calc 164 Estimated GFR > 60 Glucose 117 H POC Capillary Glucose 137 Calculated Osmolality 283 L Lactic Acid 1.3 Calcium 6.8 L Magnesium 1.7 L Total Bilirubin 0.5 AST 25 ALT 17 Alkaline Phosphatase 50 Troponin I B-Natriuretic Peptide Total Protein 5.1 L Albumin 2.2 L TSH Ethyl Alcohol 29 H 01/12/20 01/12/20 01/12/20 07:45 07:45 07:31 WBC 3.9 L RBC 3.37 L Hgb 10.2 L Hct 31.7 L MCV 94.1 MCH 30.3 MCHC 32.2 RDW 16.8 H Plt Count 142 L MPV 8.9 Immature Gran % (Auto) Not Reportable Neut % (Auto) Not Reportable Lymph % (Auto) Not Reportable [place] % (Auto) Not Reportable Eos % (Auto) Not Reportable Baso % (Auto) Not Reportable Lymph # (Auto) Not Reportable [place] # (Auto) Not Reportable Eos # (Auto) Not Reportable Baso # (Auto) Not Reportable Abs Immat Gran (auto) Not Reportable Absolute Neuts (auto) Not Reportable Absolute Nucleated RBC Not Reportable Total Counted 100 Neutrophils % (Manual) 75 H Band Neutrophils % 4 Lymphocytes % (Manual) 12 L Monocytes % (Manual) 9 Nucleated RBC % Not Reportable Abs Neuts (Manual) 3.08 Abs Lymphs (Manual) 0.46 L Abs Monocytes (Manual) 0.35 Platelet Estimate Adequate Sodium Potassium Chloride Carbon Dioxide Anion Gap BUN Creatinine Estim Creat Clear Calc Estimated GFR Glucose POC Capillary Glucose 119 Calculated Osmolality Lactic Acid 2.3 H Calcium Magnesium Total Bilirubin AST ALT Alkaline Phosphatase Troponin I B-Natriuretic Peptide Total Protein Albumin TSH Ethyl Alcohol 01/11/20 01/11/20 01/11/20 20:50 20:46 19:45 WBC RBC Hgb Hct MCV MCH MCHC RDW Plt Count MPV Immature Gran % (Auto) Neut % (Auto) Lymph % (Auto) [place] % (Auto) Eos % (Auto) Baso % (Auto) Lymph # (Auto) [place] # (Auto) Eos # (Auto) Baso # (Auto) Abs Immat Gran (auto) Absolute Neuts (auto) Absolute Nucleated RBC Total Counted Neutrophils % (Manual) Band Neutrophils % Lymphocytes % (Manual) Monocytes % (Manual) Nucleated RBC % Abs Neuts (Manual) Abs Lymphs (Manual) Abs Monocytes (Manual) Platelet Estimate Sodium Potassium Chloride Carbon Dioxide Anion Gap BUN Creatinine Estim Creat Clear Calc Estimated GFR Glucose POC Capillary Glucose 249 122 Calculated Osmolality Lactic Acid 2.7 H Calcium Magnesium Total Bilirubin AST ALT Alkaline Phosphatase Troponin I B-Natriuretic Peptide Total Protein Albumin TSH Ethyl Alcohol 01/11/20 01/11/20 01/11/20 18:11 17:36 17:36 WBC RBC Hgb Hct MCV MCH MCHC RDW Pl
--- NOTE | 2020-01-12 13:05 | PM.IMHP ---
H&P: HPI History of Present Illness Date/Time: 01/12/20 13:05 Chief complaint: Hypoglycemia Narrative: aClixto Lyons is a 59 year old male that presented to our ED today with chest heaviness, hypoglycemia and alcohol intoxication. Patient has a past medical history of hypokalemia, alcohol abuse, anxiety, BPH, chronic anemia, DVT, hepatic steatosis, hypertension, hypomagnesium, kidney stones, major depression, nicotine dependency, peptic ulcer disease, and newly diagnosed esophageal cancer. According to the patient he was at home and started to experience chest heaviness. Patient describes the pain as constant heaviness. Patient noted that he contacted his primary care physician and informed him of the chest heaviness. At that time his primary care physician informed him the radiation would not cause that he needed to proceed to the ED. Patient noted that he started to drink try to relieve the chest heaviness with no relief. He then proceeded to our ED. Patient's vital signs 97.4, 133, 18, 97, 123/77. Patient's WBC 3.9, hemoglobin 10.2, hematocrit 31.7, platelet 142, sodium 137, potassium 3.8, chloride 103, BUN 8, creatinine 0.68, patient blood sugar on admission 29 lactic acid on admission 2.7, patient alcohol level 29, troponin negative patient chest x-ray unremarkable, blood culture pending, patient EKG sinus rhythm with a heart rate of 91. Patient received D5 with normal saline 1 L bolus in the ED. the patient denies SOB, palpitation, extremity numbness, lightheadedness, dizziness, constipation, diarrhea, chills, or fever. Review of Systems Review of Systems: All systems reviewed & are unremarkable except as noted in HPI and below (10 point system review) [facility] Past Medical History Medical History Abnormal colonoscopy Abnormal EKG Acute hypokalemia Acute UTI Alcohol abuse Anxiety Benign prostatic hyperplasia Chronic anemia Compression fracture Including thoracic and lumbar compression fractures. 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 Deep venous thrombosis Left femoral vein, left internal jugular, and let axillary veins noted on ultrasound in May 2019. Hepatic steatosis Hypertension Hypomagnesemia Kidney stones Major depression Nicotine use disorder Peptic ulcer disease Remote history of perforated peptic ulcer status post partial gastrectomy. Peripheral neuropathy Substance abuse Suicidal ideation Thyroid cancer Status post partial thyroidectomy. Previously on levothyroxine. Type 2 [place] (myocardial infarction) (~08/2016) No ischemic cardiac evaluation was undertaken. Surgical History Surgical History H/O esophagogastroduodenoscopy History of cholecystectomy History of hernia repair Multiple ventral hernia repairs including incisional hernia repair, some with mesh. History of partial gastrectomy For perforated peptic ulcer. History of partial thyroidectomy For thyroid cancer. Family History Family History Father Cancer Mother Dementia Social History Social History Social History: patient has 2 children a son and a daughter. Patient is disable Surrogate decision maker: Shannan Lyons, daughter. he says that he still smokes about 2-6 cigarettes a day. Last time the patient drink alcohol was about 2 days ago. Code status: Full code. Smoking packs per day: 0.5 Smoking cigarettes per day: 10.0 Years smoked: 45 Smoking pack-years: 22.50 Smoking status: Current every day smoker Tobacco type: cigarettes Second hand tobacco smoke exposure: Yes Additional smoking assessment comments: Typically smokes between 2 and 6 cigarettes a day. Alcohol intake: current Drinks per week: 20 Substance use: current [place]
[2020-01-12] MEDS: KETOROLAC 15 MG/ML VIAL (*BKC) IV PUSH (13:42)
[2020-01-12] MEDS: SODIUM CHLORIDE 0.9% IV 1,000 ML 150 ML IV CONT (13:42)
[2020-01-12 15:25] VITALS: BP 151/87; PULSE 97; RESP 18; TEMP 36.6; O2SAT 97
[2020-01-12 16:33] LABS: Glucose Point of Care 116 (65-105)
[2020-01-12] MEDS: HYDROmorphone HCL INJ (*CRX) 2 MG/ML VIAL 0.5 MG IV PUSH ×3 (16:46→22:59)
[2020-01-12 16:48] VITALS: PULSE 91
--- NOTE | 2020-01-12 16:54 | PC.NURSE ---
Generalized pain all over, specifically chest with movement and deep breathing, no diaphoresis noted, watching TV, fluids infusing
--- NOTE | 2020-01-12 17:13 | PC.NURSE ---
Did not eat or drink very much, nothing tastes good, states he can tell there is a taste, just not a good one,
--- NOTE | 2020-01-12 18:20 | PC.NURSE ---
Resting in bed, denies needs at this time, fluids infusing
[2020-01-12] MEDS: traZODone HCL 50 MG TABLET 100 MG PO (21:06)
[2020-01-12 21:13] LABS: Glucose Point of Care 101 (65-105)
[2020-01-13] VITALS: BP 143/86; PULSE 87; RESP 18; TEMP 36.5; O2SAT 96
[2020-01-13] MEDS: HYDROmorphone HCL INJ (*CRX) 2 MG/ML VIAL 0.5 MG IV PUSH ×2 (01:58→04:59)
[2020-01-13] MEDS: chlordiazePOXIDE (*CRX) 10 MG CAPSULE PO ×2 (05:00→13:00)
[2020-01-13] MEDS: LEVOTHYROXINE SODIUM 25 MCG TABLET PO (05:41)
[2020-01-13 05:51] LABS: Hematocrit 30.5 % (40.0-54.0); Hemoglobin 9.7 g/dL (14.0-18.0); Mean Corpuscular HGB Conc 31.8 g/dL (32.0-36.0); Mean Corpuscular Hemoglobin 30.8 pg (27.0-31.0); Mean Corpuscular Volume 96.8 fL (78.0-102.0); Mean Platelet Volume 9.2 fl (8.7-11.0); Platelet Count Result 102 K/mm3 (150-420); Red Blood Count 3.15 M/mm3 (4.70-6.10); Red Cell Distribution Width 16.8 % (11.6-14.4); White Blood Count 3.8 K/mm3 (4.8-10.8)
[2020-01-13 06:10] LABS: Alanine Aminotransferase 16 U/L (16-63); Albumin Level 2.2 g/dL (3.4-5.0); Alkaline Phosphatase 52 U/L (46-116); Anion Gap 8 mmol/L (8-16); Aspartate Amino Transferase 21 U/L (15-37); Bilirubin,Total 0.5 mg/dL (0.00-1.00); Blood Urea Nitrogen 10 mg/dL (7-18); Calcium 7.1 mg/dL (8.5-10.1); Carbon Dioxide 25 mmol/L (21-32); Chloride 105 mmol/L (98-108); Estimated CRCL calculation 164 ml/min; Estimated Glomerular Filt Rate > 60; Glucose 109 mg/dL (70-99); Osmolality Calculated 286 mOsm/kg (285-295); Potassium 3.8 mmol/L (3.5-5.1); Sodium 138 mmol/L (136-145); Total Protein 4.7 g/dL (6.4-8.2); Troponin I 0.02 ng/mL (0.00-0.056)
[2020-01-13 07:32] VITALS: BP 153/85; PULSE 92; RESP 20; TEMP 36.4; O2SAT 95
[2020-01-13 07:33] LABS: Glucose Point of Care 117 (65-105)
[2020-01-13] MEDS: HYDROcodone/acetaminophen (*CRX) 5-325 MG TABLET 1 TAB PO (08:00)
[2020-01-13] MEDS: THIAMINE HCL 100 MG TABLET PO (08:01)
[2020-01-13] MEDS: calcitrioL 0.25 MCG CAPSULE 0.5 MCG PO (08:01)
[2020-01-13 08:02] VITALS: PULSE 90
[2020-01-13] MEDS: MAGNESIUM OXIDE 400 MG TABLET PO (08:02)
[2020-01-13] MEDS: METOPROLOL TARTRATE 25 MG TABLET PO (08:02)
[2020-01-13] MEDS: FOLIC ACID 1 MG TABLET PO (08:02)
[2020-01-13] MEDS: FINASTERIDE 5 MG TABLET PO (08:02)
[2020-01-13] MEDS: FERROUS SULFATE 324 MG TABLET PO (08:03)
[2020-01-13] MEDS: TAMSULOSIN HCL 0.4 MG CAPSULE 0.8 MG PO (08:03)
[2020-01-13] MEDS: PANTOPRAZOLE 40 MG TABLET PO (08:03)
[2020-01-13] MEDS: ATORVASTATIN 10 MG TABLET PO (08:04)
--- NOTE | 2020-01-13 08:15 | P.DS_ITS ---
DS: Admitting Diagnosis Admitting Diagnosis Admitting Diagnosis: Hypoglycemia DS: Discharge Diagnosis Discharge Diagnosis (1) Hypoglycemia: Code(s): E16.2 - Hypoglycemia, unspecified Status: Acute Assessment and Plan: * Possibly secondary to the use of alcohol * On admission patient's blood sugar 29 * Patient received dextrose with IV fluid with D5 * Patient blood sugar currently 109 (2) 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: Code(s): C15.4 - 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 Status: Acute Assessment and Plan: * Patient currently receiving radiation treatment and possibly chemo * Followed by Dr. Mejia * Follow-up with oncologist (3) Elevated lactic acid level: Code(s): R79.89 - Other specified abnormal findings of blood chemistry Status: Resolved Assessment and Plan: * Patient lactic acid on admission 2.17 2.3 now 1.3 (4) Electrolyte imbalance: Code(s): E87.8 - Other disorders of electrolyte and fluid balance, not elsewhere classified Status: Acute Assessment and Plan: * Possibly secondary to alcoholism * Replace electrolyte (5) Chronic anemia: Code(s): D64.9 - Anemia, unspecified Status: Acute Assessment and Plan: * Iron deficiency anemia * Patient currently at baseline * No active bleeding noted * Continue iron supplements (6) Chronic liver disease: Code(s): K76.9 - Liver disease, unspecified Status: Acute Assessment and Plan: * Stable (7) Sinus tachycardia: Code(s): R00.0 - Tachycardia, unspecified Status: Acute Assessment and Plan: * EKG Sinus rhythm 91 * Troponin negative x2 (8) Hypertension: Code(s): I10 - Essential (primary) hypertension Status: Acute Assessment and Plan: * Stable 153/85 * Continue metoprolol 25 mg twice daily (9) Coronary artery disease: Qualifiers: Associated angina: angina presence unspecified Coronary Disease- Associated Artery/Lesion type: unspecified vessel or lesion type [place] vs. transplanted heart: [place] heart Qualified Code(s): I25.10 - Atherosclerotic heart disease of [place] coronary artery without angina pectoris Code(s): I25.10 - Atherosclerotic heart disease of [place] coronary artery without angina pectoris Status: Acute Assessment and Plan: * Continue atorvastatin (10) Alcohol abuse: Code(s): F10.10 - Alcohol abuse, uncomplicated Status: Acute Assessment and Plan: * Patient educated on cessation * Alcohol level at 29 on admissiom (11) Chest discomfort: Code(s): R07.89 - Other chest pain Status: Acute Assessment and Plan: * Not believed to be cardiac related * Possibly secondary to infection versus inflammation versus malignancy * CT indicates Resolved right lung airspace opacities, consistent with infection/inflammation and. Mild wall thickening of the midesophagus, likely reflecting known malignancy. * EKG sinus rhythm with a heart rate of 91 * Continue telemetry * Troponin negative * We will continue to monitor * Patient will discharge home with steroids for inflammation, antibiotics for infection and Toradol for pain DS: Summary Time Spent with Patient Time attestation: Total time spent providing and/or coordinating discharge services: Exam Narrative: Exam Narrative: GENERAL: This is a well-nourished, well-developed patient, in no apparent distress. HEAD:
--- NOTE | 2020-01-13 08:15 | PM.DS ---
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 Mejia Follow-up with oncologist (3) Elevated lactic acid level: Code(s): R79.89 - Other specified abnormal findings of blood chemistry Status: Resolved Assessment and Plan: Patient lactic acid on admission 2.17 2.3 now 1.3 (4) Electrolyte imbalance: Code(s): E87.8 - Other disorders of electrolyte and fluid balance, not elsewhere classified Status: Acute Assessment and Plan: Possibly secondary to alcoholism Replace electrolyte (5) Chronic anemia: Code(s): D64.9 - Anemia, unspecified Status: Acute Assessment and Plan: Iron deficiency anemia Patient currently at baseline No active bleeding noted Continue iron supplements (6) Chronic liver disease: Code(s): K76.9 - Liver disease, unspecified Status: Acute Assessment and Plan: Stable (7) Sinus tachycardia: Code(s): R00.0 - Tachycardia, unspecified Status: Acute Assessment and Plan: EKG Sinus rhythm 91 Troponin negative x2 (8) Hypertension: Code(s): I10 - Essential (primary) hypertension Status: Acute Assessment and Plan: Stable 153/85 Continue metoprolol 25 mg twice daily (9) Coronary artery disease: Qualifiers: Associated angina: angina presence unspecified Coronary Disease-Associated Artery/Lesion type: unspecified vessel or lesion type [place] vs. transplanted heart: [place] heart Qualified Code(s): I25.10 - Atherosclerotic heart disease of [place] coronary artery without angina pectoris Code(s): I25.10 - Atherosclerotic heart disease of [place] coronary artery without angina pectoris Status: Acute Assessment and Plan: Continue atorvastatin (10) Alcohol abuse: Code(s): F10.10 - Alcohol abuse, uncomplicated Status: Acute Assessment and Plan: Patient educated on cessation Alcohol level at 29 on admissiom (11) Chest discomfort: Code(s): R07.89 - Other chest pain Status: Acute Assessment and Plan: Not believed to be cardiac related Possibly secondary to infection versus inflammation versus malignancy CT indicates Resolved right lung airspace opacities, consistent with infection/inflammation and. Mild wall thickening of the midesophagus, likely reflecting known malignancy. EKG sinus rhythm with a heart rate of 91 Continue telemetry Troponin negative We will continue to monitor Patient will discharge home with steroids for inflammation, antibiotics for infection and Toradol for pain DS: Summary Time Spent with Patient Time attestation: Total time spent providing and/or coordinating discharge services: Exam Narrative: Exam Narrative: GENERAL: This is a well-nourished, well-developed patient, in no apparent distress. HEAD: normocephalic, atraumatic. EYES: PERRL. Sclera clear/white. Vision is grossly intact. EARS: External ears normal, auditory canals clear and without drainage, TMs normal without perforation. Hearing grossly intact. NOSE: External nose normal with no obvious nasal discharge, nares without redness, no rhinorrhea. THROAT: Mucous membranes moist, posterior pharynx clear. NECK: Neck supple, non-tender without lymphadenopathy, masses or thyromegaly. CARDIOVASCULAR: Regular rate and rhythm wit
[2020-01-13] MEDS: POTASSIUM CHLORIDE 20 MEQ TABLET 40 MEQ PO (09:33)
[2020-01-13] MEDS: HYDROcodone/acetaminophen (*CRX) 10-325 MG TABLET 1 TAB PO (10:57)
--- NOTE | 2020-01-13 11:42 | PC.NURSE ---
Up to commode, tolerated well, requesting pain medication, advised changed from every 3 hours and to every 4 hours
[2020-01-13 11:43] LABS: Glucose Point of Care 121 (65-105)
--- NOTE | 2020-01-13 12:01 | PC.NURSE ---
To imaging for CT of chest
--- NOTE | 2020-01-13 12:20 | PC.NURSE ---
Returned from imaging and lunch tray to patient, no change in pain at this time
[2020-01-13] MEDS: levoFLOXacin TAB 500 MG, levoFLOXacin TAB 250 MG 750 MG PO (14:24)
[2020-01-13] MEDS: KETOROLAC 15 MG/ML VIAL (*BKC) IV PUSH (14:24)
[2020-01-13] MEDS: predniSONE 20 MG TABLET 60 MG PO (14:24)
--- NOTE | 2020-01-13 14:34 | PC.NURSE ---
Peripheral access discontinued with cathlon intact and port a cath to right chest deaccessed, reminded patient to watch for bleeding, signs and symptoms of infection to these areas, return to ED to have areas checked for signs of infection, verbal acknowledgment received
--- NOTE | 2020-01-13 15:43 | PC.NURSE ---
assisted pt to get dressed, pt has keys, wallet, glasses, dirty clothes, cell phone pocket maker and 2 cell phones, went over new medication with pt, reminded him not to consume alcohol with the librium, pt agrees, will call when his daughter is here to pick him up
--- NOTE | 2020-01-13 20:51 | PM.EVENT ---
Event Note Event Note Event Note: I have examined the patient and reviewed the chart. I discussed the patient's care with Andres Burris APN and agree with her assessment and plan.
--- NOTE | 2020-01-15 07:44 | PM.EVENT ---
Event Note Event Note Event Note: Call patient daughter Crsytal and informed her that patient should discontinue levaquin and start new ABX sent to his pharm bactrim DS bid for 3 days.
--- NOTE | 2020-01-15 12:43 | PC.NURSE ---
Pt states he received his instructions and he understood them. He says the hospital called him this morning and told him to stop taking one of his meds so he will do that.
== END 2020-01-13 16:00 | disposition home or self-care (01) | DRG 638 ==
LOC: CHSED 18:39 → CHS2ND 18:50
PROVIDERS: Nurse Practitioner; Admitting Provider Emergency Medicine; Emergency Provider Emergency Medicine; PCP Internal Medicine; Visit Provider Emergency Medicine
DX: E11.649 Type 2 diabetes mellitus with hypoglycemia without coma (principal); E86.0 Dehydration; R07.9 Chest pain, unspecified; C15.4 Malignant neoplasm of middle third of esophagus; E78.5 Hyperlipidemia, unspecified; E11.9 Type 2 diabetes mellitus without complications; I82.512 Chronic embolism and thrombosis of left femoral vein; I82.891 Chronic embolism and thrombosis of other specified veins; I10 Essential (primary) hypertension; I25.2 Old myocardial infarction; N40.0 Benign prostatic hyperplasia without lower urinary tract symptoms; K76.0 Fatty (change of) liver, not elsewhere classified; G62.9 Polyneuropathy, unspecified; F10.10 Alcohol abuse, uncomplicated; F32.9 Major depressive disorder, single episode, unspecified; F41.9 Anxiety disorder, unspecified; F17.210 Nicotine dependence, cigarettes, uncomplicated; Z87.442 Personal history of urinary calculi; Z85.850 Personal history of malignant neoplasm of thyroid; Z90.3 Acquired absence of stomach [part of]; Z79.899 Other long term (current) drug therapy; I82.A22 Chronic embolism and thrombosis of left axillary vein; I82.C22 Chronic embolism and thrombosis of left internal jugular vein; E11.42 Type 2 diabetes mellitus with diabetic polyneuropathy; E87.8 Other disorders of electrolyte and fluid balance, not elsewhere classified; I25.10 Atherosclerotic heart disease of native coronary artery without angina pectoris; R07.89 Other chest pain; Z87.11 Personal history of peptic ulcer disease
CPT/HCPCS: 36415; 71045; 71260; 80053; 80307; 83605; 83735; 83880; 84443; 84484; 85025; 85027; 87040; 87077; 87186; 93005; 96360; 97161; 97165; 99285; A9270; J1170; J1885; J2270; J3475; J7030; J7042; J7512; Q9965

== ENCOUNTER 2020-01-18 12:10 | Emergency (ER) | payer MEDICARE, MEDICAID, SELFPAY ==
[2020-01-18] VITALS (12 sets, daily range): BP systolic 86–144; BP diastolic 44–87; PULSE 82–100; RESP 14–20; TEMP 36.4–37.2; O2SAT 98–100
--- NOTE | 2020-01-18 12:24 | ED.WEAKNESS ---
HPI - Weakness General Chief complaint: Weakness Stated complaint: ambulance Time Seen by Provider: 01/18/20 12:14 Source: patient and RN notes reviewed Mode of arrival: ambulatory Limitations: no limitations History of Present Illness HPI Narrative: patient was just discharged from this facility 5 days ago. He said he has not been able to eat for 5 days. He is a chronic alcoholic. He said he has not been drinking either for the last 5 days. He just feels overall weak and lethargic. He does state he had some chest pain but no nausea, diaphoresis, shortness of breath. MD Complaint: generalized weakness Onset (ago): day(s) (2) Duration: constant Location: generalized Migration: none Severity: moderate Relieving factors: none Exacerbating factors: exertion Associated symptoms: chest pain Related Data Home Medications Medication Instructions Recorded Confirmed atorvastatin 10 mg PO DAILY 06/30/19 01/18/20 calcitriol 0.5 mcg PO DAILY 06/30/19 01/18/20 tamsulosin 0.8 mg PO DAILY 06/30/19 01/18/20 finasteride 5 mg PO DAILY 12/10/19 01/18/20 folic acid 1 mg PO DAILY 12/10/19 01/18/20 furosemide 20 mg PO DAILY 12/10/19 01/18/20 guaifenesin 200 mg PO Q4H PRN 12/10/19 01/18/20 hydrocodone-acetaminophen [[place]] 1 tablet PO Q4H PRN 12/10/19 01/18/20 pantoprazole [Protonix] 40 mg PO QAM 12/10/19 01/18/20 thiamine mononitrate (vit B1) 100 mg PO DAILY 12/10/19 01/18/20 Allergies Allergy/AdvReac Type Severity Reaction Status Date / Time No Known Allergies Allergy Verified 01/18/20 13:14 Review of Systems Constitutional: Constitutional: Reports no additional constitutional complaints, Denies chills and Denies fever(s) Eyes: Eyes: Reports no additional eye complaints Cardiovascular: Cardiovascular: Reports chest pain ( mild intermittently) Respiratory: Respiratory: Reports no additional respiratory complaints, Denies cough and Denies dyspnea Gastrointestinal: Gastrointestinal: Reports no additional gastrointestinal complaints, Denies nausea and Denies vomiting Musculoskeletal: Musculoskeletal: Reports no additional musculoskeletal complaints Integumentary/Breasts: Skin/Breast: Reports system reviewed and no additional complaints, except as docu Neurologic: Reports as per HPI Psychiatric: Psychiatric: Reports no additional psychiatric complaints Endocrine: Endocrine: Reports no additional endocrine complaints Hematologic/Lymphatic: Hematologic/Lymphatic: Reports no additional hematologic/lymphatic complaints [facility] Past Medical History Medical History Abnormal colonoscopy Abnormal EKG Acute hypokalemia Acute UTI Alcohol abuse Anxiety Benign prostatic hyperplasia Chronic anemia Compression fracture Including thoracic and lumbar compression fractures. 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 Deep venous thrombosis Left femoral vein, left internal jugular, and let axillary veins noted on ultrasound in May 2019. Hepatic steatosis Hypertension Hypomagnesemia Kidney stones Major depression Nicotine use disorder Peptic ulcer disease Remote history of perforated peptic ulcer status post partial gastrectomy. Peripheral neuropathy Substance abuse Suicidal ideation Thyroid cancer Status post partial thyroidectomy. Previously on levothyroxine. Type 2 [place] (myocardial infarction) (~08/2016) No ischemic cardiac evaluation was undertaken. Surgical History Surgical History H/O esophagogastroduodenoscopy History of cholecystectomy History of hernia repair Multiple ventral hernia repairs including incisional hernia repair, some with mesh. History of partial gastrectomy For perforated peptic ulcer. History of partial thyroidectomy For thyroid cancer. Family History Family History Father Cancer
--- NOTE | 2020-01-18 12:31 | ECG_ITS ---
Measurements Intervals [place] Rate: 88 P: 39 FL: 184 QRS: 36 QRSD: 79 T: 34 QT: 373 QTc: 452 Interpretive Statements SINUS RHYTHM MINIMAL Q WAVES- INF/LAT LEADS BASELINE ARTIFACT- III, AVL, AVF BORDERLINE ECG Electronically Signed On 01-18-2020 13:55:17 PIPE COVERER HELPER by Cruz Pickard D.O.
[2020-01-18 12:53] LABS: Eosinophils Absolute Auto 0.01 K/mm3 (0.02-0.50); Eosinophils Percent Auto 0.2 % (1.0-6.0); Immature Granulocyte Percent A 1.7 % (0.0-0.0); Lymphocytes Absolute Auto 0.51 K/mm3 (1.10-4.50); Lymphocytes Percent Auto 8.9 % (18.0-42.0); Mean Corpuscular HGB Conc 30.5 g/dL (32.0-36.0); Mean Corpuscular Volume 98.5 fL (78.0-102.0); Mean Platelet Volume 9.5 fl (8.7-11.0); Monocytes Absolute Auto 0.44 K/mm3 (0.10-0.90); Monocytes Percent Auto 7.6 % (2.0-11.0); Neutrophils Absolute Auto 4.7 K/mm3 (1.7-7.2); Neutrophils Percent Auto 81.6 % (50.0-70.0); Platelet Count Result 159 K/mm3 (150-420); Red Cell Distribution Width 17.9 % (11.6-14.4); White Blood Count 5.8 K/mm3 (4.8-10.8)
[2020-01-18 13:04] LABS: Hematocrit 19.7 % (40.0-54.0)
[2020-01-18 13:20] LABS: Alanine Aminotransferase 17 U/L (16-63); Albumin Level 2.2 g/dL (3.4-5.0); Alkaline Phosphatase 35 U/L (46-116); Anion Gap 8 mmol/L (8-16); Aspartate Amino Transferase 18 U/L (15-37); Bilirubin,Total 0.1 mg/dL (0.00-1.00); Blood Urea Nitrogen 32 mg/dL (7-18); Calcium 7.6 mg/dL (8.5-10.1); Carbon Dioxide 22 mmol/L (21-32); Chloride 104 mmol/L (98-108); Estimated CRCL calculation 56 ml/min; Estimated Glomerular Filt Rate 58; Glucose 106 mg/dL (70-99); Osmolality Calculated 284 mOsm/kg (285-295); Potassium 4.6 mmol/L (3.5-5.1); Sodium 134 mmol/L (136-145); Total Protein 4.6 g/dL (6.4-8.2)
[2020-01-18 13:22] LABS: Ethanol < 3 mg/dL (0-6); Thyroid Stimulating Hormone 10.76 uIU/mL (0.36-3.74)
[2020-01-18 13:22] LABS: Troponin I 0.04 ng/mL (0.00-0.056)
[2020-01-18 13:22] LABS: CRP < 0.2 mg/dL (0.0-0.9)
[2020-01-18 13:23] LABS: Ammonia 23 umol/L (11-32)
[2020-01-18 13:53] LABS: Add Urine Microscopic? YES; Appearance Urine Clear (Clear); Bilirubin Urine 1+ (Negative); Blood Urine Negative (Negative); Color Urine Yellow (Yellow); Glucose Urine UA Negative (Negative); Ketones Urine Negative (Negative); Leukocyte Esterase Ur 2+ LEU/UL (Negative); Nitrate Urine Negative (Negative); Protein Urine Negative (Negative)
[2020-01-18 13:56] LABS: Bacteria Urine Trace /hpf; RBC Urine 0-2 /hpf (0-2)
[2020-01-18 14:03] LABS: Amphetamine Screen Urine Negative (Negative); Barbiturate Screen Urine Negative (Negative); Benzodiazepines Screen Urine Positive (Negative); Cannabinoid Screen Urine Negative (Negative); Cocaine Screen Urine Negative (Negative); Methadone Screen Urine Negative (Negative); Opiate Screen Urine Positive (Negative); Phencyclidine Screen Urine Negative (Negative)
[2020-01-18 14:16] LABS: Occult Blood Positive (Negative)
[2020-01-18] MEDS: SODIUM CHLORIDE 0.9% IV 250 ML 30 ML IV CONT ×2 (14:30→19:38)
[2020-01-18] MEDS: PANTOPRAZOLE SODIUM IV 40 MG VIAL IV PUSH (17:04)
[2020-01-18 17:21] LABS: Hematocrit 23.3 % (40.0-54.0); Hemoglobin 7.4 g/dL (14.0-18.0)
[2020-01-18 20:36] LABS: Glucose Point of Care 136 (65-105)
--- NOTE | 2020-01-18 20:38 | PC.NURSE ---
Patient arrived from ER as hold until bed available at [facility]. VS stable. Alert and oriented. Fluids provided, Accucheck completed. Call light in reach. Patient has refused further treatment for esophageal cancer. Patient requesting assistance with minor tasks-i.e. pulling up covers. Asked how he was perfoming self care activities at home he stated he was unable to do so and that was why he wanted to come to hospital.
[2020-01-19 00:20] VITALS: BP 119/71; PULSE 91; RESP 18; TEMP 36.4; O2SAT 98
--- NOTE | 2020-01-19 00:21 | PC.NURSE ---
Patient requested PRN trazadone order obtained. resting in bed with call light in reach. voided 400 mls of clear yellow urine.
--- NOTE | 2020-01-19 05:20 | PC.NURSE ---
Lab here for blood draw. Port accessed. Patient alert and oriented. Call light in reach.
[2020-01-19 05:49] LABS: Basophils Absolute Auto 0.01 K/mm3 (0.00-0.10); Basophils Percent Auto 0.2 % (0.0-1.0); Eosinophils Absolute Auto 0.06 K/mm3 (0.02-0.50); Hematocrit 25.2 % (40.0-54.0); Hemoglobin 8.1 g/dL (14.0-18.0); Immature Granulocyte Absolute 0.12 K/mm3 (0.00-0.00); Immature Granulocyte Percent A 2.1 % (0.0-0.0); Lymphocytes Absolute Auto 0.99 K/mm3 (1.10-4.50); Lymphocytes Percent Auto 17.1 % (18.0-42.0); Mean Corpuscular HGB Conc 32.1 g/dL (32.0-36.0); Mean Corpuscular Volume 93.3 fL (78.0-102.0); Mean Platelet Volume 9.5 fl (8.7-11.0); Monocytes Absolute Auto 0.58 K/mm3 (0.10-0.90); Neutrophils Percent Auto 69.6 % (50.0-70.0); Platelet Count Result 179 K/mm3 (150-420); Red Cell Distribution Width 18.6 % (11.6-14.4); White Blood Count 5.8 K/mm3 (4.8-10.8)
[2020-01-19 07:23] VITALS: BP 139/81; PULSE 100; RESP 20; TEMP 37.1; O2SAT 95
[2020-01-19 08:17] LABS: Glucose Point of Care 90 (65-105)
[2020-01-19 08:47] LABS: Alanine Aminotransferase 16 U/L (16-63); Albumin Level 2.1 g/dL (3.4-5.0); Alkaline Phosphatase 33 U/L (46-116); Anion Gap 11 mmol/L (8-16); Aspartate Amino Transferase 12 U/L (15-37); Bilirubin,Total 0.5 mg/dL (0.00-1.00); Blood Urea Nitrogen 24 mg/dL (7-18); Calcium 7.2 mg/dL (8.5-10.1); Carbon Dioxide 20 mmol/L (21-32); Chloride 105 mmol/L (98-108); Estimated CRCL calculation 69 ml/min; Estimated Glomerular Filt Rate > 60; Glucose 75 mg/dL (70-99); Osmolality Calculated 285 mOsm/kg (285-295); Potassium 3.7 mmol/L (3.5-5.1); Sodium 136 mmol/L (136-145); Total Protein 4.2 g/dL (6.4-8.2)
[2020-01-19] MEDS: calcitrioL 0.25 MCG CAPSULE 0.5 MCG PO (09:31)
--- NOTE | 2020-01-19 09:32 | PC.NURSE ---
0730 up with assist to chair after using bsc. passing gas and no stool. torin irving [id number] picked at breakfast. ate 1/2 bowel of cream wheat. drinks water. does not like soda. had lg formed hard dk brown/black stool. back to bed after using bsc. up with stand by assist. torin irving
[2020-01-19] MEDS: ATORVASTATIN 10 MG TABLET PO (09:56)
[2020-01-19] MEDS: TAMSULOSIN HCL 0.4 MG CAPSULE 0.8 MG PO (09:56)
[2020-01-19] MEDS: PANTOPRAZOLE SODIUM IV 40 MG VIAL IV PUSH (09:56)
[2020-01-19 09:57] VITALS: PULSE 100
[2020-01-19] MEDS: THIAMINE HCL 100 MG TABLET PO (09:57)
[2020-01-19] MEDS: FERROUS SULFATE 324 MG TABLET PO (09:57)
[2020-01-19] MEDS: FINASTERIDE 5 MG TABLET PO (09:57)
[2020-01-19] MEDS: METOPROLOL TARTRATE 25 MG TABLET PO (09:57)
[2020-01-19] MEDS: MAGNESIUM OXIDE 400 MG TABLET PO (09:58)
[2020-01-19] MEDS: FOLIC ACID 1 MG TABLET PO (09:58)
[2020-01-19] MEDS: SODIUM CHLORIDE 0.9% IV 500 ML IV CONT (09:58)
--- NOTE | 2020-01-19 11:30 | PC.NURSE ---
[facility], no beds at this time, will call when available
[2020-01-19 11:34] LABS: Glucose Point of Care 92 (65-105)
[2020-01-19] MEDS: chlordiazePOXIDE (*CRX) 10 MG CAPSULE PO (12:55)
[2020-01-19 13:02] VITALS: BP 124/70; PULSE 94; RESP 20; TEMP 36.8; O2SAT 96
--- NOTE | 2020-01-19 13:04 | PC.NURSE ---
1300 ate 50% of lunch. back in bed. open area noted to l buttock. red center. 3cm x 2 cm. superficial. no drainage or odor.
[2020-01-19 16:28] VITALS: BP 121/73; PULSE 81; RESP 18; TEMP 36.8; O2SAT 96
[2020-01-19 17:02] LABS: Glucose Point of Care 104 (65-105)
--- NOTE | 2020-01-19 17:45 | PC.NURSE ---
report called to EDMUND Stark at [facility]. pt going to room #419.
--- NOTE | 2020-01-19 18:31 | PC.NURSE ---
pt made safe exit from unit via stretch en route to [facility] accompanied by 2 EMS at 1825. all belongings sent with patient.
[2020-01-19 18:32] VITALS: RESP 14
== END 2020-01-19 18:25 | disposition short-term general hospital (02) ==
LOC: CHSED 18:19 → CHS2ND 20:18
PROVIDERS: Emergency Provider Emergency Medicine; PCP Internal Medicine
DX: K92.1 Melena (principal); Z79.899 Other long term (current) drug therapy; Z79.01 Long term (current) use of anticoagulants; I10 Essential (primary) hypertension; F17.200 Nicotine dependence, unspecified, uncomplicated
CPT/HCPCS: 36415; 36430; 80053; 80307; 81001; 82140; 82272; 82948; 84443; 84484; 85014; 85018; 85025; 86140; 86850; 86900; 86901; 86923; 87086; 93005; 96361; 96374; 96376; 99285; A9270; C9113; J7040; J7050; P9016

== ENCOUNTER 2020-02-25 18:35 | Emergency (ER) | payer MEDICARE, MEDICAID, SELFPAY ==
[2020-02-25 18:35] VITALS: BP 126/85; PULSE 100; RESP 16; TEMP 36.6; O2SAT 99
[2020-02-25] MEDS: DEXTROSE 10% 250 ML 100 ML (18:57)
[2020-02-25 19:43] LABS: Basophils Absolute Auto 0.07 K/mm3 (0.00-0.10); Basophils Percent Auto 0.8 % (0.0-1.0); Eosinophils Absolute Auto 0.04 K/mm3 (0.02-0.50); Eosinophils Percent Auto 0.5 % (1.0-6.0); Hematocrit 43.1 % (40.0-54.0); Hemoglobin 13.5 g/dL (14.0-18.0); Immature Granulocyte Absolute 0.05 K/mm3 (0.00-0.00); Immature Granulocyte Percent A 0.6 % (0.0-0.0); Lymphocytes Absolute Auto 1.09 K/mm3 (1.10-4.50); Mean Corpuscular HGB Conc 31.3 g/dL (32.0-36.0); Mean Corpuscular Hemoglobin 28.6 pg (27.0-31.0); Mean Corpuscular Volume 91.3 fL (78.0-102.0); Mean Platelet Volume 8.9 fl (8.7-11.0); Monocytes Absolute Auto 0.52 K/mm3 (0.10-0.90); Monocytes Percent Auto 6.2 % (2.0-11.0); Neutrophils Absolute Auto 6.6 K/mm3 (1.7-7.2); Neutrophils Percent Auto 78.9 % (50.0-70.0); Platelet Count Result 334 K/mm3 (150-420); Red Blood Count 4.72 M/mm3 (4.70-6.10); Red Cell Distribution Width 15.3 % (11.6-14.4); White Blood Count 8.4 K/mm3 (4.8-10.8)
[2020-02-25 20:01] LABS: Lactic Acid Reflex 4.6 mmol/L (0.4-2.0)
[2020-02-25 20:06] LABS: Alanine Aminotransferase 8 U/L (16-63); Alkaline Phosphatase 55 U/L (46-116); Anion Gap 16 mmol/L (8-16); Aspartate Amino Transferase 23 U/L (15-37); Bilirubin,Total 0.5 mg/dL (0.00-1.00); Blood Urea Nitrogen 13 mg/dL (7-18); Calcium 7.8 mg/dL (8.5-10.1); Carbon Dioxide 18 mmol/L (21-32); Chloride 101 mmol/L (98-108); Estimated Glomerular Filt Rate > 60; Glucose 143 mg/dL (70-99); Osmolality Calculated 282 mOsm/kg (285-295); Potassium 3.8 mmol/L (3.5-5.1); Sodium 135 mmol/L (136-145); Total Protein 6.6 g/dL (6.4-8.2)
[2020-02-25 20:10] LABS: Glucose Point of Care 111 (65-105)
[2020-02-25 20:10] LABS: Glucose Point of Care < 33 (65-105)
[2020-02-25 20:10] LABS: Glucose Point of Care 158 (65-105)
[2020-02-25 20:13] LABS: Ethanol 321 mg/dL (0-6)
[2020-02-25] MEDS: SODIUM CHLORIDE 0.9% IV 1,000 ML 999 ML IV CONT (20:17)
[2020-02-25 20:22] LABS: Add Urine Microscopic? YES; Appearance Urine Clear (Clear); Bilirubin Urine Negative (Negative); Blood Urine Negative (Negative); Color Urine Yellow (Yellow); Glucose Urine UA Negative (Negative); Ketones Urine 3+ (Negative); Leukocyte Esterase Ur Negative (Negative); Nitrate Urine Negative (Negative); Protein Urine Negative (Negative); Specific Grav Ur >= 1.030 (1.010-1.020); Urobilinogen Urine 0.2 mg/dL (0.2-1.0)
[2020-02-25 20:35] VITALS: BP 155/101; PULSE 107; RESP 15; O2SAT 95
--- NOTE | 2020-02-25 20:40 | ED.WEAKNESS ---
HPI - Weakness General Chief complaint: Weakness Stated complaint: AMB Time Seen by Provider: 02/25/20 18:40 Source: patient and EMS Limitations: no limitations History of Present Illness HPI Narrative: this is a 59-year-old gentleman with a history of alcohol abuse presents via EMS with some weakness, history of alcohol abuse and was drinking apparently vodka over the last 2 to 3 days, was found to have a low blood sugar with a blood glucose level of 27. Otherwise the patient is lucid with no current confusion does have some weakness with no shortness of breath no chest pain no abdominal pain no diarrhea constipation no blurry vision or headaches. Complaint: generalized weakness Onset (ago): hour(s) Duration: improved Location: generalized Related Data Home Medications Medication Instructions Recorded Confirmed atorvastatin 10 mg PO DAILY 06/30/19 02/22/20 calcitriol 0.5 mcg PO DAILY 06/30/19 02/22/20 tamsulosin 0.8 mg PO DAILY 06/30/19 02/22/20 finasteride 5 mg PO DAILY 12/10/19 02/22/20 folic acid 1 mg PO DAILY 12/10/19 02/22/20 guaifenesin 200 mg PO Q4H PRN 12/10/19 02/22/20 hydrocodone-acetaminophen [[place]] 1 tablet PO Q4H PRN 12/10/19 02/22/20 pantoprazole [Protonix] 40 mg PO QAM 12/10/19 02/22/20 thiamine mononitrate (vit B1) 100 mg PO DAILY 12/10/19 02/22/20 Allergies Allergy/AdvReac Type Severity Reaction Status Date / Time No Known Allergies Allergy Verified 01/18/20 13:14 Review of Systems Review of Systems: All systems reviewed & are unremarkable except as noted in HPI and below PMFSH Past Medical History Medical History Abnormal colonoscopy Abnormal EKG Acute hypokalemia Acute UTI Alcohol abuse Anxiety Benign prostatic hyperplasia Chronic anemia Compression fracture Including thoracic and lumbar compression fractures. 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 Deep venous thrombosis Left femoral vein, left internal jugular, and let axillary veins noted on ultrasound in May 2019. Hepatic steatosis Hypertension Hypomagnesemia Kidney stones Major depression Nicotine use disorder Peptic ulcer disease Remote history of perforated peptic ulcer status post partial gastrectomy. Peripheral neuropathy Substance abuse Suicidal ideation Thyroid cancer Status post partial thyroidectomy. Previously on levothyroxine. Type 2 [place] (myocardial infarction) (~08/2016) No ischemic cardiac evaluation was undertaken. Surgical History Surgical History H/O esophagogastroduodenoscopy History of cholecystectomy History of hernia repair Multiple ventral hernia repairs including incisional hernia repair, some with mesh. History of partial gastrectomy For perforated peptic ulcer. History of partial thyroidectomy For thyroid cancer. Family History Family History Father Cancer Mother Dementia Social History Social History Social History: patient has 2 children a son and a daughter. Patient is disable Surrogate decision maker: Shannan Lyons, daughter. he says that he still smokes about 2-6 cigarettes a day. Last time the patient drink alcohol was about 2 days ago. Code status: Full code. Smoking packs per day: 0.5 Smoking cigarettes per day: 10.0 Years smoked: 45 Smoking pack-years: 22.50 Smoking status: Current every day smoker Tobacco type: cigarettes Second hand tobacco smoke exposure: Yes Additional smoking assessment comments: Typically smokes between 2 and 6 cigarettes a day. Alcohol intake: current Drinks per week: 20 Substance use: current Substance use type: marijuana Additional living arrangements comments: Lives alone in [place]. Additional occupation/education comments: On di
[2020-02-25 21:06] VITALS: RESP 15
[2020-02-25 21:07] LABS: Bacteria Urine Trace /hpf; RBC Urine 0-2 /hpf (0-2); WBC Urine 0-3 /hpf (0-3)
[2020-02-25 22:39] LABS: Reflex Lactic Acid Yes or No Add Lactic
== END 2020-02-25 21:10 | disposition home or self-care (01) ==
PROVIDERS: Emergency Provider Emergency Medicine; PCP Internal Medicine
DX: E16.2 Hypoglycemia, unspecified (principal); F10.920 Alcohol use, unspecified with intoxication, uncomplicated; Z79.899 Other long term (current) drug therapy; F17.200 Nicotine dependence, unspecified, uncomplicated
CPT/HCPCS: 36415; 80053; 80307; 81001; 83605; 85025; 96365; 99283; 99285; J7030

== ENCOUNTER 2020-02-28 14:39 | Emergency (ER) | payer MEDICARE, MEDICAID, SELFPAY ==
[2020-02-28] VITALS (31 sets, daily range): BP systolic 138–173; BP diastolic 74–115; PULSE 90–140; RESP 11–26; TEMP 36.6; O2SAT 98–100
--- NOTE | ~2020-02-28 | XR_ITS ---
EXAMINATION: XR chest 2V EXAM DATE: 02/28/2020 15:59 INDICATION: Hypoglycemia, CP . TECHNIQUE: Frontal and lateral projections of the chest obtained and reviewed. Comparison is made to prior examination from 01/11/2020. FINDINGS: There is no focal acute air space disease. There is a right-sided portacatheter in posit ion. Severe right glenohumeral osteoarthritis, could be secondary to trauma or other etiology given t hat there is only mild arthritis on the other side. There are subacute left 7th and 8th rib fractures laterally. No pneumothorax or pleural effusion. Cardiomediastinal silhouette is normal. IMPRESSION: 1. Left 7th, 8th subacute rib fractures. 2. No acute cardiopulmonary findings. Reviewed, dictated and finalized at location A. R MANAGER
--- NOTE | ~2020-02-28 | CT_ITS ---
EXAMINATION: CT brain wo con EXAM DATE: 02/28/2020 15:57 INDICATION: Dizziness. Altered mental status. Esophageal cancer. TECHNIQUE: Spiral CT of the head was performed without contrast. Axial, coronal and sagittal images were reviewed. The dose-length product (DLP) for this examination was 681.00 mGy-cm. The exposure w as tailored according to patient size, and iterative reconstruction (ASIR) was used as additional dos e reduction technique. Comparison is made to prior examination from 09/13/2019. FINDINGS: There is no acute intraparenchymal hemorrhage. No evidence of intraparenchymal brain mass lesion. No evidence of acute infarction. Please note that initial head CT has limited sensitivity f or small or acute infarctions. Punctate old pontine lacunar infarction. There is mild periventricul ar and subcortical hypodensity, nonspecific but probably related to small vessel ischemic disease. There is moderate prominence of the sulci and ventricles related to cerebral atrophy. There is intr acranial carotid arteriosclerosis. There are no extra-axial collections. There is no mass effect or midline shift. The orbits are unremarkable. Soft tissue is unremarkable. The visualized sinuses a nd mastoid air cells are well aerated. IMPRESSION: 1. No acute intracranial findings. 2. Chronic age related findings. 3. Punctate old pontine lacunar infarction. Reviewed, dictated and finalized at location A. ECTOR OUTSIDE STEAM DISTRIBUTION
[2020-02-28] MEDS: DEXTROSE 10% 250 ML IV CONT (14:45)
--- NOTE | 2020-02-28 15:03 | ECG_ITS ---
Measurements Intervals [place] Rate: 109 P: 39 VT: 178 QRS: 42 QRSD: 85 T: 29 QT: 362 QTc: 489 Interpretive Statements SINUS TACHYCARDIA POSSIBLE LEFT ATRIAL ENLARGEMENT EARLY PRECORDIAL R/S TRANSITION NONSPECIFIC T-WAVE ABNORMALITY- ANTEROLAT/INF LEADS ABNORMAL ECG Electronically Signed On 02-29-2020 8:10:32 STILL CLEANER by Cruz Pickard D.O.
[2020-02-28 15:41] LABS: Basophils Absolute Auto 0.04 K/mm3 (0.00-0.10); Basophils Percent Auto 0.6 % (0.0-1.0); Eosinophils Absolute Auto 0.01 K/mm3 (0.02-0.50); Eosinophils Percent Auto 0.2 % (1.0-6.0); Hematocrit 38.1 % (40.0-54.0); Hemoglobin 11.4 g/dL (14.0-18.0); Immature Granulocyte Absolute 0.04 K/mm3 (0.00-0.00); Immature Granulocyte Percent A 0.6 % (0.0-0.0); Lymphocytes Absolute Auto 0.48 K/mm3 (1.10-4.50); Lymphocytes Percent Auto 7.4 % (18.0-42.0); Mean Corpuscular HGB Conc 29.9 g/dL (32.0-36.0); Mean Corpuscular Hemoglobin 28.8 pg (27.0-31.0); Mean Corpuscular Volume 96.2 fL (78.0-102.0); Mean Platelet Volume 9.8 fl (8.7-11.0); Monocytes Absolute Auto 0.49 K/mm3 (0.10-0.90); Monocytes Percent Auto 7.6 % (2.0-11.0); Neutrophils Absolute Auto 5.4 K/mm3 (1.7-7.2); Neutrophils Percent Auto 83.6 % (50.0-70.0); Platelet Count Result 181 K/mm3 (150-420); Red Blood Count 3.96 M/mm3 (4.70-6.10); Red Cell Distribution Width 15.3 % (11.6-14.4); White Blood Count 6.5 K/mm3 (4.8-10.8)
[2020-02-28 15:44] LABS: Add Urine Microscopic? YES; Appearance Urine Clear (Clear); Bilirubin Urine 1+ (Negative); Blood Urine Negative (Negative); Color Urine Yellow (Yellow); Glucose Urine UA Negative (Negative); Ketones Urine 3+ (Negative); Leukocyte Esterase Ur Negative LEU/UL (Negative); Nitrate Urine Negative (Negative); Protein Urine Negative (Negative); Specific Grav Ur >= 1.030 (1.010-1.020)
[2020-02-28 15:47] LABS: RBC Urine 0-2 /hpf (0-2)
[2020-02-28 15:48] LABS: Bacteria Urine Trace /hpf; Squamous Epithelial Cell Urine Rare /hpf (Few); WBC Urine 0-3 /hpf (0-3)
[2020-02-28 15:50] LABS: Amphetamine Screen Urine Negative (Negative); Barbiturate Screen Urine Negative (Negative); Benzodiazepines Screen Urine Negative (Negative); Cannabinoid Screen Urine Negative (Negative); Cocaine Screen Urine Negative (Negative); Methadone Screen Urine Negative (Negative); Opiate Screen Urine Positive (Negative); Phencyclidine Screen Urine Negative (Negative)
[2020-02-28 15:56] LABS: Alanine Aminotransferase 24 U/L (16-63); Alkaline Phosphatase 64 U/L (46-116); Anion Gap 19 mmol/L (8-16); Aspartate Amino Transferase 63 U/L (15-37); Bilirubin,Total 1.1 mg/dL (0.00-1.00); Blood Urea Nitrogen 14 mg/dL (7-18); Carbon Dioxide 16 mmol/L (21-32); Chloride 98 mmol/L (98-108); Estimated Glomerular Filt Rate > 60; Ethanol 152 mg/dL (0-6); Glucose 67 mg/dL (70-99); Osmolality Calculated 274 mOsm/kg (285-295); Sodium 133 mmol/L (136-145); Total Protein 6.5 g/dL (6.4-8.2)
[2020-02-28 15:57] LABS: Troponin I 24.8 ng/L (0.00-60.4)
[2020-02-28 16:12] LABS: Glucose Point of Care 145 (65-105)
[2020-02-28 16:12] LABS: Glucose Point of Care 46 (65-105)
[2020-02-28] MEDS: THIAMINE HCL INJ 100 MG, FOLIC ACID INJ 1 MG, MULTIVITAMINS-12 INJ VIAL 1 5 ML, MULTIVI... 250 MG IV CONT (17:00)
--- NOTE | 2020-02-28 17:04 | ED.GENADULT ---
HPI - General Adult General Chief complaint: Chest Pain Stated complaint: 59YO Male w/ known h.o ETOHism found unresponsive by his neighbors who called EMS. When EMS arriver they found patient w/ BS in 30's, they gave him Glucagon, D10 water which made patient alert and awake. Patient admits that he doesn't eat much and admits to drinking only 1 pint today. He also admits to h/o chest pain that resolved by the time he got to ER. Related Data Home Medications Medication Instructions Recorded Confirmed atorvastatin 10 mg PO DAILY 06/30/19 02/28/20 calcitriol 0.5 mcg PO DAILY 06/30/19 02/28/20 tamsulosin 0.8 mg PO DAILY 06/30/19 02/28/20 finasteride 5 mg PO DAILY 12/10/19 02/28/20 folic acid 1 mg PO DAILY 12/10/19 02/28/20 guaifenesin 200 mg PO Q4H PRN 12/10/19 02/28/20 hydrocodone-acetaminophen [[place]] 1 tablet PO Q4H PRN 12/10/19 02/28/20 pantoprazole [Protonix] 40 mg PO QAM 12/10/19 02/28/20 thiamine mononitrate (vit B1) 100 mg PO DAILY 12/10/19 02/28/20 Allergies Allergy/AdvReac Type Severity Reaction Status Date / Time No Known Allergies Allergy Verified 01/18/20 13:14 Review of Systems Review of Systems: All systems reviewed & are unremarkable except as noted in HPI and below PMFSH Past Medical History Medical History Abnormal colonoscopy Abnormal EKG Acute hypokalemia Acute UTI Alcohol abuse Anxiety Benign prostatic hyperplasia Chronic anemia Compression fracture Including thoracic and lumbar compression fractures. 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 Deep venous thrombosis Left femoral vein, left internal jugular, and let axillary veins noted on ultrasound in May 2019. Hepatic steatosis Hypertension Hypomagnesemia Kidney stones Major depression Nicotine use disorder Peptic ulcer disease Remote history of perforated peptic ulcer status post partial gastrectomy. Peripheral neuropathy Substance abuse Suicidal ideation Thyroid cancer Status post partial thyroidectomy. Previously on levothyroxine. Type 2 [place] (myocardial infarction) (~08/2016) No ischemic cardiac evaluation was undertaken. Surgical History Surgical History H/O esophagogastroduodenoscopy History of cholecystectomy History of hernia repair Multiple ventral hernia repairs including incisional hernia repair, some with mesh. History of partial gastrectomy For perforated peptic ulcer. History of partial thyroidectomy For thyroid cancer. Family History Family History Father Cancer Mother Dementia Social History Social History Social History: patient has 2 children a son and a daughter. Patient is disable Surrogate decision maker: Shannan Lyons, daughter. he says that he still smokes about 2-6 cigarettes a day. Last time the patient drink alcohol was about 2 days ago. Code status: Full code. Smoking packs per day: 0.5 Smoking cigarettes per day: 10.0 Years smoked: 45 Smoking pack-years: 22.50 Smoking status: Current every day smoker Tobacco type: cigarettes Second hand tobacco smoke exposure: Yes Additional smoking assessment comments: Typically smokes between 2 and 6 cigarettes a day. Alcohol intake: current Drinks per week: 20 Substance use: current Substance use type: marijuana Additional living arrangements comments: Lives alone in [place]. Additional occupation/education comments: On disability. Gender identity (if verbalized by the patient): Male Spiritual care concerns: No Agree to blood products: Yes Exam Const: General: healthy appearing, no acute distress and alert Orientation/consciousness: patient oriented x3 Other: ETOH on breath HENMT: Head: normal to inspection General n
[2020-02-28 17:44] LABS: Glucose Point of Care 177 (65-105)
--- NOTE | 2020-02-28 18:34 | ECG_ITS ---
Measurements Intervals [place] Rate: 92 P: 44 MS: 176 QRS: 58 QRSD: 86 T: 33 QT: 385 QTc: 478 Interpretive Statements SINUS RHYTHM EARLY PRECORDIAL R/S TRANSITION BORDERLINE ECG Electronically Signed On 02-29-2020 8:09:30 REAL ESTATE REPRESENTATIVE by Cruz Pickard D.O.
[2020-02-28] MEDS: chlordiazePOXIDE (*CRX) 25 MG CAPSULE 50 MG PO (18:36)
[2020-02-28] MEDS: ACETAMINOPHEN 500 MG TABLET 1000 MG PO (18:36)
[2020-02-28 19:33] LABS: Troponin I 22.2 ng/L (0.00-60.4)
[2020-03-01 16:17] LABS: Glucose Point of Care 38 (65-105)
== END 2020-02-28 20:00 | disposition home or self-care (01) ==
PROVIDERS: Emergency Provider Family Medicine; PCP Internal Medicine
DX: F10.29 Alcohol dependence with unspecified alcohol-induced disorder (principal); S22.42XD Multiple fractures of ribs, left side, subsequent encounter for fracture with routine healing; Z79.899 Other long term (current) drug therapy
CPT/HCPCS: 36415; 70450; 71046; 80053; 80307; 81001; 84484; 85025; 93005; 96365; 96366; 96367; 99283; 99284; A9270; J3411; J3475; J7121

== ENCOUNTER 2020-03-26 14:57 | Inpatient (IN) | payer MEDICARE, MEDICAID, SELFPAY ==
[2020-03-26] VITALS (12 sets, daily range): BP systolic 126–153; BP diastolic 89–98; PULSE 100–138; RESP 13–21; TEMP 36.6–37.8; O2SAT 97–100; BMI 23.3
--- NOTE | ~2020-03-26 | XR_ITS ---
EXAMINATION: XR chest 1V portable DATE: 03/26/2020 15:28 INDICATION: Chest pain TECHNIQUE: frontal view of the chest was obtained. COMPARISON: Chest radiograph dated 02/28/2020 FINDINGS: Right internal jugular central venous port catheter with distal tip near the superior cavoatrial junc tion. Lungs remain clear with no focal airspace opacities, pulmonary edema, pleural effusion or pneum othorax. The cardiomediastinal silhouette is normal. Callus formation about healing left seventh, eig hth and ninth rib fractures. Additional old healed right seventh rib fracture. Advanced right glenohu meral osteoarthritis. IMPRESSION: 1. No acute cardiopulmonary disease. Reviewed, dictated and finalized at location A. LAINT COORDINATOR
--- NOTE | 2020-03-26 15:01 | ECG_ITS ---
Measurements Intervals [place] Rate: 133 P: 56 IN: 159 QRS: 50 QRSD: 82 T: 119 QT: 289 QTc: 431 Interpretive Statements SINUS TACHYCARDIA EARLY PRECORDIAL R/S TRANSITION ST-T WAVE ABNORMALITY IN ANTEROLATERAL LEADS- CONSIDER ISCHEMIA ABNORMAL ECG Electronically Signed On 03-28-2020 8:16:01 RIVER TESTER by Cruz Pickard D.O.
[2020-03-26 15:22] LABS: Basophils Absolute Auto 0.06 K/mm3 (0.00-0.10); Basophils Percent Auto 0.6 % (0.0-1.0); Eosinophils Absolute Auto 0.23 K/mm3 (0.02-0.50); Eosinophils Percent Auto 2.2 % (1.0-6.0); Hematocrit 39.9 % (40.0-54.0); Hemoglobin 13.3 g/dL (14.0-18.0); Immature Granulocyte Absolute 0.06 K/mm3 (0.00-0.00); Immature Granulocyte Percent A 0.6 % (0.0-0.0); Lymphocytes Absolute Auto 0.68 K/mm3 (1.10-4.50); Lymphocytes Percent Auto 6.6 % (18.0-42.0); Mean Corpuscular HGB Conc 33.3 g/dL (32.0-36.0); Mean Corpuscular Volume 86.9 fL (78.0-102.0); Mean Platelet Volume 9.3 fl (8.7-11.0); Monocytes Percent Auto 6.8 % (2.0-11.0); Neutrophils Absolute Auto 8.6 K/mm3 (1.7-7.2); Neutrophils Percent Auto 83.2 % (50.0-70.0); Platelet Count Result 227 K/mm3 (150-420); Red Blood Count 4.59 M/mm3 (4.70-6.10); Red Cell Distribution Width 16.8 % (11.6-14.4); White Blood Count 10.3 K/mm3 (4.8-10.8)
[2020-03-26 15:33] LABS: BNP 27 pg/mL (0-100)
[2020-03-26 15:34] LABS: Partial Thromboplastin Time 27.7 SEC (23.90-30.70); Prothrombin Time 10.7 Seconds (9.50-12.10)
[2020-03-26 15:38] LABS: Alanine Aminotransferase 8 U/L (16-63); Albumin Level 2.8 g/dL (3.4-5.0); Alkaline Phosphatase 73 U/L (46-116); Anion Gap 21 mmol/L (8-16); Aspartate Amino Transferase 33 U/L (15-37); Bilirubin,Total 1.3 mg/dL (0.00-1.00); Blood Urea Nitrogen 21 mg/dL (7-18); Carbon Dioxide 15 mmol/L (21-32); Chloride 96 mmol/L (98-108); Estimated CRCL calculation 71 ml/min; Estimated Glomerular Filt Rate > 60; Glucose 85 mg/dL (70-99); Lactic Acid Reflex 5.1 mmol/L (0.4-2.0); Lipase 24 U/L (73-393); Osmolality Calculated 276 mOsm/kg (285-295); Potassium 4.5 mmol/L (3.5-5.1); Sodium 132 mmol/L (136-145); Total Protein 5.7 g/dL (6.4-8.2); Troponin I 37.5 ng/L (0.00-60.4)
[2020-03-26 15:39] LABS: Ethanol 250 mg/dL (0-6)
--- NOTE | 2020-03-26 15:47 | ED.WEAKNESS ---
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 Patient continues to to drink heavily and has been drinking for the past 2 to 3 days, called EMS because of pressure in his mid chest with a feeling of weakness and feeling of dehydration. Patient denies having any shortness of breath, patient states that he does not have any nausea or vomiting but does feel queasy with no abdominal pain no dysuria no fever or chills. Patient also has a history of hypothyroidism a chronic alcohol abuse and reflux disease. Complaint: generalized weakness Onset (ago): day(s) Duration: constant Location: generalized Migration: none Severity: moderate Quality: aching Relieving factors: none Exacerbating factors: none Related Data Home Medications Medication Instructions Recorded Confirmed atorvastatin 10 mg PO DAILY 06/30/19 03/26/20 calcitriol 0.5 mcg PO DAILY 06/30/19 03/26/20 tamsulosin 0.8 mg PO DAILY 06/30/19 03/26/20 finasteride 5 mg PO DAILY 12/10/19 03/26/20 folic acid 1 mg PO DAILY 12/10/19 03/26/20 guaifenesin 200 mg PO Q4H PRN 12/10/19 03/26/20 hydrocodone-acetaminophen [[place]] 1 tablet PO Q4H PRN 12/10/19 03/26/20 pantoprazole [Protonix] 40 mg PO QAM 12/10/19 03/26/20 thiamine mononitrate (vit B1) 100 mg PO DAILY 12/10/19 03/26/20 Allergies Allergy/AdvReac Type Severity Reaction Status Date / Time No Known Allergies Allergy Verified 01/18/20 13:14 Review of Systems Review of Systems: All systems reviewed & are unremarkable except as noted in HPI and below PMFSH Past Medical History Medical History Abnormal colonoscopy Abnormal EKG Acute hypokalemia Acute UTI Alcohol abuse Anxiety Benign prostatic hyperplasia Chronic anemia Compression fracture Including thoracic and lumbar compression fractures. 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 Deep venous thrombosis Left femoral vein, left internal jugular, and let axillary veins noted on ultrasound in May 2019. Hepatic steatosis Hypertension Hypomagnesemia Kidney stones Major depression Nicotine use disorder Peptic ulcer disease Remote history of perforated peptic ulcer status post partial gastrectomy. Peripheral neuropathy Substance abuse Suicidal ideation Thyroid cancer Status post partial thyroidectomy. Previously on levothyroxine. Type 2 NE (myocardial infarction) (~08/2016) No ischemic cardiac evaluation was undertaken. Surgical History Surgical History H/O esophagogastroduodenoscopy History of cholecystectomy History of hernia repair Multiple ventral hernia repairs including incisional hernia repair, some with mesh. History of partial gastrectomy For perforated peptic ulcer. History of partial thyroidectomy For thyroid cancer. Family History Family History Father Cancer Mother Dementia Social History Social History Social History: patient has 2 children a son and a daughter. Patient is disable Surrogate decision maker: Shannan Lyons, daughter. he says that he still smokes about 2-6 cigarettes a day. Last time the patient drink alcohol was about 2 days ago. Code status: Full code. Smoking packs per day: 0.5 Smoking cigarettes per day: 10.0 Years smoked: 45 Smoking pack-years: 22.50 Smoking status: Current
[2020-03-26 16:16] LABS: SARS-CoV-2 Ag Negative (Negative)
[2020-03-26] MEDS: MULTIVITAMINS-12 INJ VIAL 1 5 ML, MULTIVITAMINS-12 INJ VIAL 2 5 ML in SODIUM CHLORIDE 0... 100 ML IV CONT (18:15)
[2020-03-26 18:19] LABS: Reflex Lactic Acid Yes or No Add Lactic
[2020-03-26 18:41] LABS: Lactic Acid 6.5 mmol/L (0.4-2.0)
[2020-03-26] MEDS: METOPROLOL TARTRATE 25 MG TABLET PO (19:13)
--- NOTE | 2020-03-26 19:17 | PC.NURSE ---
report to [facility]
--- NOTE | 2020-03-26 20:54 | PC.NURSE ---
notified of increase in troponin level. No new orders at this time.
[2020-03-26] MEDS: FLUTICASONE PROPIONATE 0.05% NA SPR 16 GM BTL (*BKC) 2 SPRAY NASAL (21:02)
[2020-03-26] MEDS: chlordiazePOXIDE (*CRX) 10 MG CAPSULE PO (21:03)
[2020-03-26] MEDS: traZODone HCL 50 MG TABLET 100 MG PO (21:03)
[2020-03-26 21:35] LABS: Add Urine Microscopic? YES; Appearance Urine Clear (Clear); Bilirubin Urine 1+ (Negative); Blood Urine Negative (Negative); Glucose Urine UA Negative (Negative); Ketones Urine 3+ (Negative); Leukocyte Esterase Ur Trace (Negative); Nitrate Urine Negative (Negative); Protein Urine Trace (Negative); Specific Grav Ur >= 1.030 (1.010-1.020)
[2020-03-26 21:42] LABS: RBC Urine None seen /hpf (0-2)
[2020-03-26 21:43] LABS: Color Urine Amber (Yellow); Squamous Epithelial Cell Urine Few /hpf (Few)
[2020-03-26 21:44] LABS: Bacteria Urine 1+ /hpf; Hyaline Casts Urine 50+ /lpf
[2020-03-26 21:46] LABS: Mucus Urine Moderate /lpf
[2020-03-26 22:31] LABS: Troponin I 62.5 ng/L (0.00-60.4)
--- NOTE | 2020-03-26 22:43 | PC.NURSE ---
notified of current troponin lab result of 62.5. New orders for Troponin level and EKG @0730 a.m.
[2020-03-26] MEDS: ACETAMINOPHEN 325 MG TABLET 650 MG PO (23:32)
[2020-03-27] VITALS (10 sets, daily range): BP systolic 105–143; BP diastolic 75–90; PULSE 84–120; RESP 16–20; TEMP 36.6–37.8; O2SAT 97–99
[2020-03-27] MEDS: SODIUM CHLORIDE 0.9% IV 1,000 ML 100 ML IV CONT ×3 (04:16→23:59)
[2020-03-27 05:15] LABS: Lactic Acid Reflex 2.8 mmol/L (0.4-2.0)
[2020-03-27] MEDS: LEVOTHYROXINE SODIUM 25 MCG TABLET PO (05:31)
[2020-03-27] MEDS: chlordiazePOXIDE (*CRX) 10 MG CAPSULE PO ×3 (05:31→21:02)
--- NOTE | 2020-03-27 07:21 | PM.IMHP ---
H&P: HPI History of Present Illness Date/Time: 03/27/20 07:21 <JIMENA Holguin - Last Filed: 03/27/20 08:00> Chief Complaint: Chest discomfort <JIMENA Holguin - Last Filed: 03/27/20 08:00> Narrative: Calixto Lyons is a 59 year old male that presented to our ED yesterday with complaints of chest discomfort patient has a past medical history of esophageal cancer, DVTs in his upper and lower extremities, hypertension, hypomagnesium, kidney stones, major depression, GERD, nicotine dependence, peptic ulcer disease, peripheral neuropathy, substance abuse, suicidal ideation, [, type II GA, and abnormal EKG. patient is well-known to this facility, patient is currently receiving radiation treatments for his esophageal cancer, according to patient approximately 1 week ago he started experiencing chest discomfort. Patient describes the chest pain as a pressure in the middle of his chest it does not radiate patient notes that while he was at home he did take Tylenol for the chest discomfort with little relief. Patient also noted that he has the disc comfort with activities and while resting. he notes that he thought that the radiation treatment was the cause of his chest discomfort so did not come into the ED he noted that since it had lasted for a week he probably should come in to our ED. Patient notes that he still continues to have chest discomfort today and rates the pain a 8 out of a 10. Patient's EKG indicates sinus rhythm with a heart rate of 92 patient troponin on admission 48.0 currently 62.5, chest x-ray unremarkable, urinalysis with bacteria and leukocytes, and elevated alcohol level. Patient is being admitted for dehydration and to rule out GA. The patient denies SOB, palpitation, extremity numbness, lightheadedness, dizziness, constipation, diarrhea, chills, or fever. <JIMENA Holguin - Last Filed: 03/27/20 08:00> Review of Systems Review of Systems: All systems reviewed & are unremarkable except as noted in HPI and below (10 point system review) <JIMENA Holguin - Last Filed: 03/27/20 08:00> [facility] Past Medical History Medical History: Medical History Abnormal colonoscopy Abnormal EKG Acute hypokalemia Acute UTI Alcohol abuse Anxiety Benign prostatic hyperplasia Chronic anemia Compression fracture Including thoracic and lumbar compression fractures. 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 Deep venous thrombosis Left femoral vein, left internal jugular, and let axillary veins noted on ultrasound in May 2019. Hepatic steatosis Hypertension Hypomagnesemia Kidney stones Major depression Nicotine use disorder Peptic ulcer disease Remote history of perforated peptic ulcer status post partial gastrectomy. Peripheral neuropathy Substance abuse Suicidal ideation Thyroid cancer Status post partial thyroidectomy. Previously on levothyroxine. Type 2 GA (myocardial infarction) (~08/2016) No ischemic cardiac evaluation was undertaken. <JIMENA Holguin - Last Filed: 03/27/20 08:00> Surgical History Surgical History: Surgical History H/O esophagogastroduodenoscopy History of cholecystectomy History of hernia repair Multiple ventral hernia repairs including incisional hernia repair, some with mesh. History of partial gastrectomy For perforated peptic ulcer. History of partial thyroidectomy For thyroid cancer. <JIMENA Holguin - Last Filed: 03/27/20 08:00> Family History Family History: Family History Father Cancer Mother Dementia <JIMENA Holguin - Last Filed: 03/27/20 08:00> Social History Social History: Social History Social History: sai
--- NOTE | 2020-03-27 07:36 | ECG_ITS ---
Measurements Intervals [place] Rate: 89 P: 51 IA: 173 QRS: 16 QRSD: 85 T: 132 QT: 411 QTc: 501 Interpretive Statements SINUS RHYTHM EARLY PRECORDIAL R/S TRANSITION BORDERLINE T WAVE ABNORMALITY- DIFFUSE LEADS BASELINE ARTIFACT- I, V4-V6 BORDERLINE ECG Electronically Signed On 03-28-2020 8:16:57 TELEHEALTH CASE MANAGER by Cruz Pickard D.O.
[2020-03-27 07:43] LABS: Reflex Lactic Acid Yes or No Add Lactic
--- NOTE | 2020-03-27 07:45 | PC.NURSE ---
HEATH Fung and Melanie Rowley RN informed of patient complaint of chest pain.
[2020-03-27 08:30] LABS: Basophils Absolute Auto 0.03 K/mm3 (0.00-0.10); Basophils Percent Auto 0.5 % (0.0-1.0); Eosinophils Absolute Auto 0.07 K/mm3 (0.02-0.50); Eosinophils Percent Auto 1.3 % (1.0-6.0); Hematocrit 30.8 % (40.0-54.0); Hemoglobin 10.5 g/dL (14.0-18.0); Immature Granulocyte Absolute 0.04 K/mm3 (0.00-0.00); Immature Granulocyte Percent A 0.7 % (0.0-0.0); Lymphocytes Absolute Auto 0.55 K/mm3 (1.10-4.50); Lymphocytes Percent Auto 10.1 % (18.0-42.0); Mean Corpuscular HGB Conc 34.1 g/dL (32.0-36.0); Mean Corpuscular Hemoglobin 29.5 pg (27.0-31.0); Mean Corpuscular Volume 86.5 fL (78.0-102.0); Mean Platelet Volume 10.3 fl (8.7-11.0); Monocytes Absolute Auto 0.43 K/mm3 (0.10-0.90); Monocytes Percent Auto 7.9 % (2.0-11.0); Neutrophils Absolute Auto 4.4 K/mm3 (1.7-7.2); Neutrophils Percent Auto 79.5 % (50.0-70.0); Platelet Count Result 122 K/mm3 (150-420); Red Blood Count 3.56 M/mm3 (4.70-6.10); Red Cell Distribution Width 16.4 % (11.6-14.4); White Blood Count 5.5 K/mm3 (4.8-10.8)
[2020-03-27 08:40] LABS: Alanine Aminotransferase 9 U/L (16-63); Albumin Level 2.4 g/dL (3.4-5.0); Alkaline Phosphatase 64 U/L (46-116); Anion Gap 5 mmol/L (8-16); Aspartate Amino Transferase 25 U/L (15-37); Bilirubin,Total 1.7 mg/dL (0.00-1.00); Blood Urea Nitrogen 17 mg/dL (7-18); Calcium 7.6 mg/dL (8.5-10.1); Carbon Dioxide 28 mmol/L (21-32); Chloride 96 mmol/L (98-108); Estimated CRCL calculation 71 ml/min; Estimated Glomerular Filt Rate > 60; Glucose 154 mg/dL (70-99); Magnesium 1.3 mg/dL (1.8-2.4); Osmolality Calculated 272 mOsm/kg (285-295); Potassium 3.8 mmol/L (3.5-5.1); Sodium 129 mmol/L (136-145)
[2020-03-27 08:43] LABS: Lactic Acid 2.9 mmol/L (0.4-2.0)
[2020-03-27 09:02] LABS: Ethanol < 3 mg/dL (0-6); Troponin I 57.1 ng/L (0.00-60.4)
[2020-03-27 09:04] LABS: Thyroid Stimulating Hormone 5.91 uIU/mL (0.36-3.74)
[2020-03-27] MEDS: FOLIC ACID 1 MG TABLET PO (09:38)
[2020-03-27] MEDS: PANTOPRAZOLE 40 MG TABLET PO ×2 (09:38→17:02)
[2020-03-27] MEDS: TAMSULOSIN HCL 0.4 MG CAPSULE 0.8 MG PO (09:38)
[2020-03-27] MEDS: MAGNESIUM OXIDE 400 MG TABLET PO (09:39)
[2020-03-27] MEDS: FERROUS SULFATE 324 MG TABLET PO (09:39)
[2020-03-27] MEDS: calcitrioL 0.25 MCG CAPSULE 0.5 MCG PO (09:39)
[2020-03-27] MEDS: FINASTERIDE 5 MG TABLET PO (09:39)
[2020-03-27] MEDS: METOPROLOL TARTRATE 25 MG TABLET PO ×2 (09:40→17:01)
[2020-03-27] MEDS: THIAMINE HCL 100 MG TABLET PO (09:40)
[2020-03-27] MEDS: ATORVASTATIN 10 MG TABLET PO (09:50)
[2020-03-27] MEDS: MELATONIN 5 MG TABLET PO (21:02)
[2020-03-27] MEDS: traZODone HCL 50 MG TABLET 150 MG PO (21:03)
[2020-03-27] MEDS: FLUTICASONE PROPIONATE 0.05% NA SPR 16 GM BTL (*BKC) 2 SPRAY NASAL (21:04)
[2020-03-28] VITALS (9 sets, daily range): BP systolic 113–133; BP diastolic 79–87; PULSE 80–104; RESP 18–20; TEMP 36.3–37; O2SAT 96–100
[2020-03-28] MEDS: chlordiazePOXIDE (*CRX) 10 MG CAPSULE PO ×2 (05:09→17:56)
[2020-03-28] MEDS: ACETAMINOPHEN 325 MG TABLET 650 MG PO (05:29)
[2020-03-28] MEDS: LEVOTHYROXINE SODIUM 25 MCG TABLET PO (05:30)
[2020-03-28 05:50] LABS: Hematocrit 27.3 % (40.0-54.0); Hemoglobin 9.2 g/dL (14.0-18.0); Immature Platelet Fraction Pct 2.2 % (1.0-7.0); Mean Corpuscular HGB Conc 33.7 g/dL (32.0-36.0); Mean Corpuscular Hemoglobin 29.2 pg (27.0-31.0); Mean Corpuscular Volume 86.7 fL (78.0-102.0); Mean Platelet Volume 10.2 fl (8.7-11.0); Platelet Count Result 89 K/mm3 (150-420); Red Blood Count 3.15 M/mm3 (4.70-6.10); Red Cell Distribution Width 16.4 % (11.6-14.4); White Blood Count 3.7 K/mm3 (4.8-10.8)
[2020-03-28 06:15] LABS: Alanine Aminotransferase 10 U/L (16-63); Albumin Level 2.2 g/dL (3.4-5.0); Alkaline Phosphatase 63 U/L (46-116); Anion Gap 4 mmol/L (8-16); Aspartate Amino Transferase 25 U/L (15-37); Blood Urea Nitrogen 9 mg/dL (7-18); Calcium 7.4 mg/dL (8.5-10.1); Carbon Dioxide 27 mmol/L (21-32); Chloride 101 mmol/L (98-108); Estimated CRCL calculation 85 ml/min; Estimated Glomerular Filt Rate > 60; Glucose 97 mg/dL (70-99); Magnesium 1.3 mg/dL (1.8-2.4); Osmolality Calculated 272 mOsm/kg (285-295); Potassium 3.4 mmol/L (3.5-5.1); Sodium 132 mmol/L (136-145); Total Protein 4.6 g/dL (6.4-8.2); Troponin I 33.3 ng/L (0.00-60.4)
[2020-03-28] MEDS: MAGNESIUM SULF 4 GM/WATER100ML 4 GM/100 ML BAG IVPB (07:37)
[2020-03-28] MEDS: calcitrioL 0.25 MCG CAPSULE 0.5 MCG PO (09:43)
[2020-03-28] MEDS: POTASSIUM CHLORIDE 20 MEQ TABLET 40 MEQ PO (09:43)
[2020-03-28] MEDS: MAGNESIUM OXIDE 400 MG TABLET PO (09:44)
[2020-03-28] MEDS: THIAMINE HCL 100 MG TABLET PO (09:44)
[2020-03-28] MEDS: PANTOPRAZOLE 40 MG TABLET PO ×2 (09:44→17:56)
[2020-03-28] MEDS: FERROUS SULFATE 324 MG TABLET PO (09:44)
[2020-03-28] MEDS: FOLIC ACID 1 MG TABLET PO (09:44)
[2020-03-28] MEDS: TAMSULOSIN HCL 0.4 MG CAPSULE 0.8 MG PO (09:44)
[2020-03-28] MEDS: METOPROLOL TARTRATE 25 MG TABLET PO ×2 (09:44→17:55)
[2020-03-28] MEDS: ATORVASTATIN 10 MG TABLET PO (09:44)
[2020-03-28] MEDS: FINASTERIDE 5 MG TABLET PO (09:44)
[2020-03-28] MEDS: SODIUM CHLORIDE 0.9% IV 1,000 ML 100 ML IV CONT (11:11)
--- NOTE | 2020-03-28 12:57 | P.PN_ITS ---
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 Last and final treatment 1 04/24/2019 * Patient does not have any follow-up appointment with Dr. Koko Díaz (3) Anemia: Qualifiers: Anemia type: unspecified type Qualified Code(s): D64.9 - Anemia, unspecified Code(s): D64.9 - Anemia, unspecified Status: Acute Assessment and Plan: * Chronic arm patient she did anemia * Continue iron supplement * Patient is at baseline * We will continue to monitor (4) ETOHism: Code(s): F10.20 - Alcohol dependence, uncomplicated Status: Acute Assessment and Plan: * Educated on cessation * Will continue Ativan as needed with Librium scheduled * Patient received a banana bag on admission * Continue folic acid, thiamine * Alcohol level 250 (5) Elevated lactic acid level: Code(s): R79.89 - Other specified abnormal findings of blood chemistry Status: Resolved Assessment and Plan: * On admission patient's lactic acid 6.5>2.8, trending down * We will continue to monitor * Possibly secondary to urinary tract infection (6) CAD (coronary artery disease): Code(s): I25.10 - Atherosclerotic heart disease of [place] coronary artery without angina pectoris Status: Acute Assessment and Plan: * Continue statins (7) Hypertension: Code(s): I10 - Essential (primary) hypertension Status: Acute Assessment and Plan: * Patient blood pressure stable * Continue metoprolol 25 mg twice daily * Vital signs as ordered * Will adjust as needed (8) History of DVT (deep vein thrombosis): Code(s): Z86.718 - Personal history of other venous thrombosis and embolism Status: Acute Assessment and Plan: * Patient no longer taking anticoagulant due to his high fall risk and history of GI bleed (9) Electrolyte imbalance: Code(s): E87.8 - Other disorders of electrolyte and fluid balance, not elsewhere classified Status: Acute Assessment and Plan: * Possibly secondary to dehydration versus alcohol abuse * Will replace with supplement (10) Abnormal finding on urinalysis: Code(s): R82.90 - Unspecified abnormal findings in urine Status: Acute Assessment and Plan: * UA indicates leukocytes with bacteria * Continue Bactrim and started phenazopyridine for 2 days * UA culture not collected before antibiotic use (11) Acute dehydration: Code(s): E86.0 - Dehydration Status: Acute Assessment and Plan: * Resolved * Possibly secondary to alcohol abuse * Continue to hydrate via IV (12) GERD (gastroesophageal reflux disease): Code(s): K21.9 - Gastro-esophageal reflux disease without esophagitis Status: Acute Assessment and Plan: * Continue pantoprazole 40 mg twice daily Review of Systems Review of Systems: All systems reviewed & are unremarka
--- NOTE | 2020-03-28 12:57 | WPDPN ---
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 Last and final treatment 02/22/2020 Patient does not have any follow-up appointment with Dr. Koko Díaz (3) Anemia: Qualifiers: Anemia type: unspecified type Qualified Code(s): D64.9 - Anemia, unspecified Code(s): D64.9 - Anemia, unspecified Status: Acute Assessment and Plan: Chronic arm patient she did anemia Continue iron supplement Patient is at baseline We will continue to monitor (4) ETOHism: Code(s): F10.20 - Alcohol dependence, uncomplicated Status: Acute Assessment and Plan: Educated on cessation Will continue Ativan as needed with Librium scheduled Patient received a banana bag on admission Continue folic acid, thiamine Alcohol level 250 (5) Elevated lactic acid level: Code(s): R79.89 - Other specified abnormal findings of blood chemistry Status: Resolved Assessment and Plan: On admission patient's lactic acid 6.5>2.8, trending down We will continue to monitor Possibly secondary to urinary tract infection (6) CAD (coronary artery disease): Code(s): I25.10 - Atherosclerotic heart disease of [place] coronary artery without angina pectoris Status: Acute Assessment and Plan: Continue statins (7) Hypertension: Code(s): I10 - Essential (primary) hypertension Status: Acute Assessment and Plan: Patient blood pressure stable Continue metoprolol 25 mg twice daily Vital signs as ordered Will adjust as needed (8) History of DVT (deep vein thrombosis): Code(s): Z86.718 - Personal history of other venous thrombosis and embolism Status: Acute Assessment and Plan: Patient no longer taking anticoagulant due to his high fall risk and history of GI bleed (9) Electrolyte imbalance: Code(s): E87.8 - Other disorders of electrolyte and fluid balance, not elsewhere classified Status: Acute Assessment and Plan: Possibly secondary to dehydration versus alcohol abuse Will replace with supplement (10) Abnormal finding on urinalysis: Code(s): R82.90 - Unspecified abnormal findings in urine Status: Acute Assessment and Plan: UA indicates leukocytes with bacteria Continue Bactrim and started phenazopyridine for 2 days UA culture not collected before antibiotic use (11) Acute dehydration: Code(s): E86.0 - Dehydration Status: Acute Assessment and Plan: Resolved Possibly secondary to alcohol abuse Continue to hydrate via IV (12) GERD (gastroesophageal reflux disease): Code(s): K21.9 - Gastro-esophageal reflux disease without esophagitis Status: Acute Assessment and Plan: Continue pantoprazole 40 mg twice daily Review of Systems Review of Systems: All systems reviewed & are unremarkable except as noted in HPI and below (10 point system review) Exam Narrative: Exam Narrative: GENERAL: This is a well-nourished, well-developed patient, in no apparent distress. HEAD: normocephalic, atraumatic. EYES: PERRL. Sclera clear/white. Vision is grossly intact. EARS: External ears normal, auditory canals clear and without drainage, TMs normal without perforation. Hearing grossly intact. NOSE: External nose normal with no obvious nasal discharge, nares with
[2020-03-28] MEDS: PHENAZOPYRIDINE HCL 100 MG TABLET 200 MG PO ×2 (14:10→17:55)
[2020-03-28] MEDS: traZODone HCL 50 MG TABLET 150 MG PO (20:42)
[2020-03-28] MEDS: FLUTICASONE PROPIONATE 0.05% NA SPR 16 GM BTL (*BKC) 2 SPRAY NASAL (20:43)
[2020-03-28] MEDS: MELATONIN 5 MG TABLET PO (20:43)
--- NOTE | 2020-03-28 23:55 | PC.NURSE ---
Dr. Fofana called to give new orders; Orders received and noted.
--- NOTE | 2020-03-29 00:13 | PC.NURSE ---
Dr. Fofana called with new orders; New orders received and noted.
[2020-03-29 03:53] VITALS: BP 135/84; PULSE 78; RESP 18; TEMP 36.3; O2SAT 96
[2020-03-29] MEDS: chlordiazePOXIDE (*CRX) 10 MG CAPSULE PO (05:10)
[2020-03-29] MEDS: LEVOTHYROXINE SODIUM 25 MCG TABLET PO (05:45)
[2020-03-29 05:55] LABS: Hematocrit 26.9 % (40.0-54.0); Hemoglobin 8.8 g/dL (14.0-18.0); Immature Platelet Fraction Pct 2.6 % (1.0-7.0); Mean Corpuscular HGB Conc 32.7 g/dL (32.0-36.0); Mean Corpuscular Hemoglobin 28.9 pg (27.0-31.0); Mean Corpuscular Volume 88.5 fL (78.0-102.0); Mean Platelet Volume 10.8 fl (8.7-11.0); Platelet Count Result 75 K/mm3 (150-420); Red Blood Count 3.04 M/mm3 (4.70-6.10); Red Cell Distribution Width 16.2 % (11.6-14.4); White Blood Count 3.3 K/mm3 (4.8-10.8)
[2020-03-29 06:16] LABS: Alanine Aminotransferase 11 U/L (16-63); Albumin Level 2.1 g/dL (3.4-5.0); Alkaline Phosphatase 64 U/L (46-116); Anion Gap 7 mmol/L (8-16); Aspartate Amino Transferase 21 U/L (15-37); Bilirubin,Total 0.6 mg/dL (0.00-1.00); Blood Urea Nitrogen 6 mg/dL (7-18); Calcium 7.4 mg/dL (8.5-10.1); Carbon Dioxide 25 mmol/L (21-32); Chloride 102 mmol/L (98-108); Estimated CRCL calculation 99 ml/min; Estimated Glomerular Filt Rate > 60; Glucose 89 mg/dL (70-99); Osmolality Calculated 274 mOsm/kg (285-295); Potassium 3.7 mmol/L (3.5-5.1); Sodium 134 mmol/L (136-145); Total Protein 4.3 g/dL (6.4-8.2)
--- NOTE | 2020-03-29 07:34 | PM.IMPN ---
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 Faye per previous documents (3) Anemia: Qualifiers: Anemia type: unspecified type Qualified Code(s): D64.9 - Anemia, unspecified Code(s): D64.9 - Anemia, unspecified Status: Acute Assessment and Plan: 03/29/2020 Chronic anemia and stable 8.8/26.9, continue ferrous sulfate, will continue to monitor to see if levels dropped (4) ETOHism: Code(s): F10.20 - Alcohol dependence, uncomplicated Status: Acute Assessment and Plan: 03/29/2020 Educated on cessation, Will continue Ativan as needed with Librium scheduled, Continue folic acid, thiamine (5) Elevated lactic acid level: Code(s): R79.89 - Other specified abnormal findings of blood chemistry Status: Resolved Assessment and Plan: 03/29/2020 will draw lactic acid in the morning, last document noted downward trend (6) CAD (coronary artery disease): Code(s): I25.10 - Atherosclerotic heart disease of [place] coronary artery without angina pectoris Status: Acute Assessment and Plan: 03/29/2020 Continue statins (7) Hypertension: Code(s): I10 - Essential (primary) hypertension Status: Acute Assessment and Plan: 03/29/2020 Continue metoprolol 25 mg twice daily, Vital signs as ordered, Will adjust as needed (8) History of DVT (deep vein thrombosis): Code(s): Z86.718 - Personal history of other venous thrombosis and embolism Status: Acute Assessment and Plan: Patient no longer taking anticoagulant due to his high fall risk and history of GI bleed (9) Electrolyte imbalance: Code(s): E87.8 - Other disorders of electrolyte and fluid balance, not elsewhere classified Status: Acute Assessment and Plan: 03/29/2020 Magnesium today 1.6 4 g IV ordered and will recheck in the morning (10) Abnormal finding on urinalysis: Code(s): R82.90 - Unspecified abnormal findings in urine Status: Acute Assessment and Plan: 03/29/2020 Bactrim and started phenazopyridine, blood cultures show Gram-positive cocci in clusters, continue with Bactrim and vancomycin, awaiting sensitivities, in patients having symptom relief with Azo (11) Acute dehydration: Code(s): E86.0 - Dehydration Status: Acute Assessment and Plan: Resolved Possibly secondary to alcohol abuse Continue to hydrate via IV until taking p.o. fluids well (12) GERD (gastroesophageal reflux disease): Code(s): K21.9 - Gastro-esophageal reflux disease without esophagitis Status: Acute Assessment and Plan: Continue pantoprazole 40 mg twice daily Subjective Date/time seen: 03/29/20 07:34 Patient states he is feeling better today than yesterday. However he still has the chest pain midsternum area. The pain is reproducible with light pressure applied to the sternum and both sides of the ribs. Patient meets the drink a lot in the past and quit for 2 months and picked it back up again but not as often. Patient denies any fevers chills shortness of breath abdominal pains changes in stool or urinary pattern. Review of Systems Constitutional: Constitutional: Reports no additional constitutional complaints Cardiovascular: Cardiovascular: Reports chest pain Respiratory: Respiratory: Reports no additional respiratory complaints, Denies dyspnea and Denies dyspnea on exerti
[2020-03-29 07:49] VITALS: BP 124/77; PULSE 81; RESP 18; TEMP 36.8; O2SAT 96
[2020-03-29 07:52] LABS: Magnesium 1.6 mg/dL (1.8-2.4)
[2020-03-29 08:00] VITALS: PULSE 87
[2020-03-29] MEDS: MAGNESIUM SULF 4 GM/WATER100ML 4 GM/100 ML BAG IVPB (08:22)
[2020-03-29] MEDS: PHENAZOPYRIDINE HCL 100 MG TABLET 200 MG PO ×2 (08:45→12:23)
[2020-03-29] MEDS: PANTOPRAZOLE 40 MG TABLET PO (08:46)
[2020-03-29] MEDS: calcitrioL 0.25 MCG CAPSULE 0.5 MCG PO (08:46)
[2020-03-29] MEDS: METOPROLOL TARTRATE 25 MG TABLET PO (08:47)
[2020-03-29] MEDS: TAMSULOSIN HCL 0.4 MG CAPSULE 0.8 MG PO (08:47)
[2020-03-29] MEDS: MAGNESIUM OXIDE 400 MG TABLET PO (08:48)
[2020-03-29] MEDS: FERROUS SULFATE 324 MG TABLET PO (08:48)
[2020-03-29] MEDS: THIAMINE HCL 100 MG TABLET PO (08:48)
[2020-03-29] MEDS: ATORVASTATIN 10 MG TABLET PO (08:48)
[2020-03-29] MEDS: FOLIC ACID 1 MG TABLET PO (08:48)
[2020-03-29] MEDS: FINASTERIDE 5 MG TABLET PO (08:48)
[2020-03-29 12:00] VITALS: BP 96/71; PULSE 90; RESP 18; TEMP 36.4; O2SAT 100
[2020-03-29 14:29] LABS: Lactic Acid Reflex 1.8 mmol/L (0.4-2.0)
--- NOTE | 2020-03-30 07:47 | PM.DS ---
DS: Admitting Diagnosis Admitting Diagnosis Admitting Diagnosis: Atypical Chest pain DS: Discharge Diagnosis Discharge Diagnosis (1) Blood bacterial culture positive: Code(s): R78.81 - Bacteremia Status: Acute Assessment and Plan: The patient was found to have blood cultures, 2 out of 2 with gram positive cocci in clusters. There was concern that the most likely cause of this would be related to his Port a Cath. Because of this it was felt he should transfer to a larger facility, where Infectious Disease and a general surgery consult could the need to remove the port. I discussed his situation with the hospitalist at [facility] who agreed to take him for evaluation, as he will likely need to have the port removed. (2) Staph infection: Code(s): B95.8 - Unspecified staphylococcus as the cause of diseases classified elsewhere Status: Acute Assessment and Plan: Transfer to [facility] DS: Summary Hospital Course Hospital Course: HPI: As above, he presented with atypical chest pain after radiation treatment for esophageal cancer. He was evaluated for his atypical chest pain, and found to have minimally elevated troponin at one point, thought to be related to radiation for his esophageal cancer. His pain could be made worse with chest pressure. Procedures: none Treatment: He was hydrated, He was found to have a UTI and treated for this. When 2 out of 2 blood cultures grew out gram positive cocci in clusters, this was felt to likely be staph, related to a port infection. At that point, we felt he needed to be transferred to [facility] for further care with an ID evaluation and a general surgeon evaluation. Time Spent with Patient Time attestation: Total time spent providing and/or coordinating discharge services: greater than 30 minutes. Exam Narrative: Exam Narrative: normal cephalic, atraumatic, somewhat unkept, in his ususal state. Const: General: cooperative, no acute distress and well developed Nutritional Appearance: average body habitus Orientation/consciousness: patient oriented x3 Limitations: no limitations HENMT: Ears: hearing grossly normal bilaterally General nose exam: Normal external nose present and Normal nasal mucous membranes and turbinates present Mouth: Yes Normal oral and palatal mucosa present and Yes moist mucous membranes abnormal Throat: posterior oropharynx normal Eyes: General: appearance normal, both eyes and all related structures Neck: Neck: normal visual inspection and no lymphadenopathy Chest: Chest palpation & inspection: normal inspection of the chest (no tenderness over port) Resp: Effort & Inspection: normal respiratory effort and able to speak in complete sentences Auscultation: clear to auscultation bilaterally Cardio: Rate: regular rate Rhythm: regular rhythm GI: Inspection: normal to inspection and other (soft nontender) Skin: General skin exam: normal color Neuro: General: gait normal Motor exam (neuro): Normal motor muscle tone present throughout Extrem: General: normal to inspection Psych: Appearance: grossly normal Mental Status: mental status grossly normal Speech and movement: Normal speech and movement present Thought content: Yes Normal thought content present DS: Data Data Completed and Pending Labs on day of discharge: Labs from last 24 hours 03/29/20 03/29/20 14:00 05:45 Lactic Acid 1.8 Magnesium 1.6 L Discharge Plan Discharge Attending physician on discharge: Jaleel Fofana Consulting providers: Kenton Burris ; Harsh Wei ; Cruz Pickard ; Prosper Blood Discharging Clinician: Kenton Burris Patient Disposition: [facility] Date of admission: 03/26/20 15:54 Primary Care Provider: Shirin Murray Admitting Provider: Glenn Mireles Attending physician on admission: Glenn Mireles Condition: Guarded Prognosis Quality VTE Prophylaxis VTE p
== END 2020-03-29 15:00 | disposition short-term general hospital (02) | DRG 315 ==
LOC: CHSED 15:54 → CHS2ND 16:29
PROVIDERS: Emergency Medicine; Nurse Practitioner; Nurse Practitioner Family; Admitting Provider Emergency Medicine; Emergency Provider Emergency Medicine; PCP Internal Medicine; Visit Provider Emergency Medicine
DX: T80.212A Local infection due to central venous catheter, initial encounter (principal); R00.0 Tachycardia, unspecified; F10.10 Alcohol abuse, uncomplicated; R78.81 Bacteremia; C15.4 Malignant neoplasm of middle third of esophagus; I82.512 Chronic embolism and thrombosis of left femoral vein; I82.A22 Chronic embolism and thrombosis of left axillary vein; I82.C22 Chronic embolism and thrombosis of left internal jugular vein; N39.0 Urinary tract infection, site not specified; K76.0 Fatty (change of) liver, not elsewhere classified; E86.0 Dehydration; N40.0 Benign prostatic hyperplasia without lower urinary tract symptoms; E87.8 Other disorders of electrolyte and fluid balance, not elsewhere classified; I10 Essential (primary) hypertension; I25.10 Atherosclerotic heart disease of native coronary artery without angina pectoris; D64.9 Anemia, unspecified; F41.9 Anxiety disorder, unspecified; E89.0 Postprocedural hypothyroidism; K21.9 Gastro-esophageal reflux disease without esophagitis; Z79.01 Long term (current) use of anticoagulants; G62.9 Polyneuropathy, unspecified; I25.2 Old myocardial infarction; Z79.899 Other long term (current) drug therapy; F32.9 Major depressive disorder, single episode, unspecified; B95.8 Unspecified staphylococcus as the cause of diseases classified elsewhere; F10.20 Alcohol dependence, uncomplicated; F17.200 Nicotine dependence, unspecified, uncomplicated; Z87.11 Personal history of peptic ulcer disease; Z87.442 Personal history of urinary calculi; Z90.3 Acquired absence of stomach [part of]; Z92.3 Personal history of irradiation; Z20.822 Contact with and (suspected) exposure to COVID-19
CPT/HCPCS: 36415; 71045; 80053; 80307; 81001; 83605; 83690; 83735; 83880; 84443; 84484; 85025; 85027; 85055; 85610; 85730; 87040; 87077; 87186; 87426; 93005; 97110; 97161; 97165; 97530; 99285; A9270; C9803; J3370; J3475; J7030

== ENCOUNTER 2020-03-29 17:27 | Inpatient (IN) | payer MEDICARE, MEDICAID, SELFPAY ==
--- NOTE | ~2020-03-29 | CT_ITS ---
EXAMINATION: CT abdomen pelvis w con INDICATION: Abdominal pain TECHNIQUE: Computed tomographic images of the abdomen and pelvis were obtained after the administrati on of 100 cc of Omnipaque 350 intravenous contrast. The dose-length product (DLP) was 1148.81 mGy-cm. Automated exposure control and iterative reconstruction technique were employed. COMPARISON: 11/10/2019 FINDINGS: There are moderate-sized pleural effusions. Mild dependent atelectasis is noted. The heart size is normal. The gallbladder is surgically absent. The liver, spleen, and adrenal glands are ab l. Punctate calcification of the pancreas is consistent with chronic pancreatitis. There is a 6 mm no nobstructing stone of the left kidney. A 5 mm cyst is noted in the right kidney. There is calcified a therosclerosis of the aorta and many of the other arteries. No pathologically enlarged abdominal or p elvic lymph nodes are identified. There is no free intraperitoneal gas or evidence of bowel obstructi on. The appendix is dilated and measures up to 10 mm. The appendix is situated in the right abdomen b etween the inferior margin of the liver and the right iliac crest. Multiple healed left-sided rib fra ctures are noted. There are stable chronic compression fractures of the lumbar spine. There is mild c ircumferential bladder wall thickening. IMPRESSION: 1. Dilated appendix consistent with appendicitis. Recommend correlation for right abdominal tendernes s. These findings were communicated to Cheyanne in the chest pain center at 1536 hours on 03/30/2020. 2. Mild bladder wall thickening which may be related to chronic outlet obstruction or cystitis. Reviewed, dictated and finalized at location A. PARALEGAL IMPRESSION: 1. Dilated appendix consistent with appendicitis. Recommend correlation for rig ht abdominal tenderness. These findings were communicated to Cheyanne in the chest p ain center at 1536 hours on 03/30/2020. 2. Mild bladder wall thickening which may be related to chronic outlet obstruct ion or cystitis.
--- NOTE | ~2020-03-29 | XR_ITS ---
EXAMINATION: XR abdomen obstructive series DATE: 04/04/2020 14:55 INDICATION: Abdominal tenderness. Abnormal CT . TECHNIQUE: Frontal supine and upright views of the abdomen were obtained. COMPARISON: CT dated 03/30/2020 FINDINGS: Small amount of gas scattered throughout the small bowel and colon. No dilated loops of gas-filled dada wel to suggest obstruction. No free intraperitoneal gas. Small bilateral pleural effusions with dayana nting at the costophrenic angles. Cholecystectomy clips in the right upper quadrant. Small metallic c lip in the right abdomen which may be related to prior ventral hernia repair. Prosthetic calcificatio ns. Mild to moderate thoracolumbar spondylosis with chronic mild compression fractures and the lumbar spine. IMPRESSION: 1. No free intraperitoneal gas or dilated gas-filled loops of bowel to suggest obstruction. Reviewed, dictated and finalized at location B. O LEAD
--- NOTE | ~2020-03-29 | US_ITS ---
EXAMINATION: US venous doppler UE LT DATE: 04/04/2020 11:10 INDICATION: Left upper limb swelling. TECHNIQUE: Grayscale ultrasound images without and with compression and Doppler ultrasound images of the left upper extremity veins were obtained. COMPARISON: None. FINDINGS: The visualized portions of the left axillary vein, brachial veins, basilic vein, cephalic vein, radia l vein, and ulnar vein are patent. There is thrombus in left internal jugular vein and subclavian vei n. IMPRESSION: 1. Deep vein thrombosis involving the left internal jugular and subclavian veins. I called this resu lt to Dr. Salinas. Reviewed, dictated and finalized at location A. H SERVICES LIBRARIAN IMPRESSION: 1. Deep vein thrombosis involving the left internal jugular and subclavian vei ns. I called this result to Dr. Salinas.
--- NOTE | ~2020-03-29 | CT_ITS ---
EXAMINATION: CT chest abdomen pelvis wo con DATE: 04/06/2020 13:16 INDICATION: Chest and abdominal pain TECHNIQUE: Computed tomography (CT) of the chest, abdomen, and pelvis was performed without intraveno us contrast. Automated exposure control and iterative reconstruction technique were employed. The dos e-length product was 1200.02 mGy-cm. COMPARISON: CT abdomen and pelvis dated 03/30/2020 and chest dated 01/13/2020 FINDINGS: CHEST CT: Increase in size of moderate bilateral posterior layering pleural effusions with dependent passive at electasis bilateral upper and lower lobes. New groundglass opacities in the apical segment of the rig ht upper lobe. Heart size is normal. Small pericardial effusion. Atherosclerotic coronary artery calc ifications. No pathologically enlarged thoracic lymphadenopathy. Right internal jugular central venou s port catheter with distal tip at the superior cavoatrial junction where there is narrowing of the s uperior vena cava. Small sliding-type hiatal hernia. Decrease in degree of wall thickening in the mid esophagus just above level of the wade which could represent posttreatment improvement of a known esophageal cancer. Multiple chronic mild compression fractures in the mid to lower thoracic spine. Ca llus formation about a few chronic left rib fractures. ABDOMEN/PELVIS CT: Cholecystectomy clips at the gallbladder fossa. Diffuse hepatic steatosis. Postoperative change of pr ior gastric bypass procedure. Small calcific a cyst at the head of the pancreas likely sequela of chr onic pancreatitis. There is subtle haziness to the surrounding fat and could not exclude acute inters titial pancreatitis. Bilateral adrenal glands are normal. Unchanged 5 mm stone at the lower pole of t he left kidney. Additional 5 mm stone at the left ureterovesicular junction. Mild bilateral hydrouret eronephrosis. No evident obstructing stone or mass on the right. There is however prominent distentio n of the bladder which measures 16.8 x 9.9 x 12.3 cm suggesting that the hydronephrosis may be due to more to outlet obstruction or neurogenic bladder. Again seen is fatty infiltration of the wall of th e cecum and appendix likely related to body habitus. No periappendiceal inflammatory stranding to sug gest acute appendicitis. Prosthetic calcifications. No free intraperitoneal gas or fluid. No patholog ically enlarged abdominal or pelvic lymphadenopathy. A few additional chronic lumbar compression frac tures with moderate spondylosis. IMPRESSION: 1. Nephrolithiasis with 5 mm stones at the left kidney and left ureterovesicular junction. 2. Mild bilateral hydroureteronephrosis without evident obstructing stone or lesion on the right and this may be related to chronic outlet obstruction or neurogenic bladder with marked distention of the bladder. 3. Increase in size of moderate bilateral posterior layering pleural effusions. 4. New region of groundglass opacity in the apical segment of the right upper lobe concerning for pne umonia. Differential includes radiation pneumonitis, pulmonary edema, hypersensitivity pneumonitis or atelectasis. 5. Small sliding-type hiatal hernia. 6. Decrease in prior wall thickening at the mid esophagus likely related to treatment of reported eso phageal cancer. 7. Small pericardial effusion. Reviewed, dictated and finalized at location B. STRY AND WILDLIFE MANAGER IMPRESSION: 1. Nephrolithiasis with 5 mm stones at the left kidney and left ureterovesicula r junction. 2. Mild bilateral hydroureteronephrosis without evident obstructing stone or le larissa on the right and this may be related to chronic outlet obstruction or neur ogenic bladder with marked distention of the bladder. 3. Increase in size of moderate bilateral posterior layering pleural effusions. 4. New
--- NOTE | 2020-03-29 18:11 | ADMGEN ---
This patient, Calixto Lyons, was admitted to [facility]. Patient/family oriented to hospital policies and general routines including ID bracelet, bed and alarms, visiting hours, pain management, procedures, bathroom and other care routines, personal items, smoking policy, room service/diet, and visiting hours. Information on how to activate the Rapid Response Team has been discussed. Patient/Family are encouraged to report perceived risks to care and to ask questions if they do not understand what they are told or what they should do.
[2020-03-29 18:16] VITALS: BP 127/88; PULSE 97; RESP 22; O2SAT 99
[2020-03-29 18:20] VITALS: PULSE 80
--- NOTE | 2020-03-29 18:26 | PM.IMHP ---
H&P: HPI History of Present Illness Date/Time: 03/29/20 18:26 Chief Complaint: Positive blood culture Narrative: Calixto Lyons is a 59 year old male Who has a history of alcoholism in esophageal cancer. the patient is a direct admit from [facility]. The patient came to [facility] ER on 03/26/2020 with the patient was complaining of chest pain. He had had chest pain that was ruled out as acute coronary syndrome. His 1st troponin was mildly elevated the last 2 were negative. The patient had reducible pain for and was considered esophageal pain from his esophageal cancer. The patient has had 15 radiation treatments do the oncology radiologist here at [facility]. The patient states that he has 13 more to go. He has not had any chemotherapy but sees Dr. duncan as his oncologist. His EKG is sinus rhythm. Patient's alcohol level was 250 when he went to [facility]. He had been on Ativan and Librium there. He did receive a banana bag on admission. Patient's lactic level was initially 6.5 and came down to 2.8. The patient had been found to have urinary tract infection. The patient was placed on Bactrim and Pyridium for 2 days. Blood cultures came back from the day that he went to ER at [place] on 03/26/2020 that he has anaerobic and anaerobic blood culture Gram-positive cocci in clusters in 1 bottle own and there was an adequate volume of blood in the other Bottle. The patient was placed on vancomycin. Urine culture came back negative meaning at no growth was noted. It was felt that the patient had bacteremia and felt that maybe the patient's right Port-A-Cath was infected. I did speak to Dr. noyola who felt that the patient needed to come to [facility] for infectious disease and to be evaluated for Port-A-Cath removal. Patient had already been on antibiotics but we ordered blood cultures again. I did speak with Dr. Burris the surgeon who agreed to consult on the patient in the event that the patient does have an infection is right Port-A-Cath. It is not known where the patient had a place I could not find any records from here. The site appears to be without infection. The patient is being admitted to inpatient status on the date of service of 03/29/2020. Review of Systems Review of Systems: All systems reviewed & are unremarkable except as noted in HPI and below Constitutional: Constitutional: Reports as per HPI and Reports no additional constitutional complaints Eyes: Eyes: Reports as per HPI and Reports no additional eye complaints ENT: Reports system reviewed and no additional complaints, except as documented and Reports Normal hearing present Cardiovascular: Cardiovascular: Reports no additional cardiovascular complaints Respiratory: Respiratory: Reports no additional respiratory complaints and Reports no additional respiratory complaints Gastrointestinal: Gastrointestinal: Reports as per HPI and Reports no additional gastrointestinal complaints Musculoskeletal: Musculoskeletal: Reports no additional musculoskeletal complaints Integumentary/Breasts: Skin/Breast: Reports system reviewed and no additional complaints, except as docu and Reports as per HPI Neurologic: Reports system reviewed and no additional complaints, except as documented, Reports as per HPI and Reports Normal hearing present Psychiatric: Psychiatric: Reports no additional psychiatric complaints and Reports as per HPI Endocrine: Endocrine: Reports no additional endocrine complaints Hematologic/Lymphatic: Hematologic/Lymphatic: Reports no additional hematologic/lymphatic complaints Allergic/Immunologic: Allergic/Immunologic: Reports no additional allergic/immunologic complaints PMFSH Past Medical History Medical History Abnormal colonoscopy Abnormal EKG Acute hypokalemia Acute UTI Alcohol abuse Anxiety Benign prostatic hyperplasia Chronic anemia Compression f
[2020-03-29 19:03] VITALS: BMI 23.3
[2020-03-29 19:05] LABS: Lactic Acid Reflex 1.1 mmol/L (0.7-2.1)
[2020-03-29 19:06] LABS: Add Urine Microscopic? YES; Appearance Urine Clear (Clear); Bilirubin Urine Negative (Negative); Blood Urine Negative (Negative); Color Urine Amber (Yellow); Glucose Urine UA Negative (Negative); Ketones Urine Trace mg/dL (Negative); Leukocyte Esterase Ur Negative LEU/UL (Negative); Mucus Urine Rare /lpf; Nitrate Urine Positive (Negative); Protein Urine Negative (Negative); RBC Urine 0-2 /hpf (0-2); Specific Grav Ur 1.009 (1.001-1.035); Squamous Epithelial Cell Urine Rare /hpf (Few); WBC Urine 0-3 /hpf
[2020-03-29 19:06] LABS: Anion Gap -1 mmol/L (8-16); Blood Urea Nitrogen 6 mg/dL (9-20); Calcium 7.4 mg/dL (8.4-10.2); Carbon Dioxide 27 mmol/L (22-30); Chloride 103 mmol/L (98-107); Estimated CRCL calculation 111 ml/min; Estimated Glomerular Filt Rate > 60; Glucose 107 mg/dL (75-110); Magnesium 1.9 mg/dL (1.6-2.3); Potassium 3.9 mmol/L (3.4-5.0); Sodium 129 mmol/L (137-145)
[2020-03-29] MEDS: chlordiazePOXIDE (*CRX) 25 MG CAPSULE PO (19:11)
[2020-03-29 20:00] VITALS: BP 108/68; PULSE 84; PULSE 93; RESP 16; TEMP 36.9; O2SAT 98
[2020-03-29 21:21] VITALS: PULSE 88
[2020-03-29] MEDS: METOPROLOL TARTRATE 25 MG TABLET PO (21:21)
[2020-03-29] MEDS: FAMOTIDINE 20 MG/2 ML VIAL IV PUSH (21:21)
[2020-03-29] MEDS: traZODone HCL 50 MG TABLET 100 MG PO (21:22)
[2020-03-29] MEDS: FLUTICASONE PROPIONATE 0.05% NA SPR 16 GM BTL (*BKC) 2 SPRAY NASAL (21:23)
[2020-03-29] MEDS: MELATONIN 5 MG TABLET PO (21:57)
[2020-03-30] VITALS (8 sets, daily range): BP systolic 108–135; BP diastolic 73–82; PULSE 78–108; RESP 16–20; TEMP 36.3–36.6; O2SAT 96–99
[2020-03-30] MEDS: ALBUTEROL SULFATE (*SP) AEROSOL 1 PUFF 2 PUFF INHALATION (00:10)
[2020-03-30] MEDS: chlordiazePOXIDE (*CRX) 25 MG CAPSULE PO ×3 (00:15→17:10)
[2020-03-30] MEDS: LEVOTHYROXINE SODIUM 25 MCG TABLET PO (05:10)
[2020-03-30 05:19] LABS: Basophils Percent Auto 0.6 % (0.2-1.2); Eosinophils Absolute Auto 0.2 K/mm3 (0-0.3); Eosinophils Percent Auto 4.4 % (0-4.4); Hematocrit 26.3 % (42.0-52.0); Hemoglobin 8.7 g/dL (14.0-18.0); Immature Granulocyte Absolute 0.01 K/mm3 (0.00-0.031); Immature Granulocyte Percent A 0.3 % (0-0.5); Immature Platelet Fraction Pct 4.4 % (0.9-11.2); Lymphocytes Absolute Auto 0.62 K/mm3 (0.9-3.2); Lymphocytes Percent Auto 18.3 % (18.3-44.2); Mean Corpuscular HGB Conc 33.1 g/dl (32-36); Mean Corpuscular Hemoglobin 29.8 pg (26-34); Mean Corpuscular Volume 90.1 fl (80-100); Monocytes Absolute Auto 0.4 K/mm3 (0.1-0.6); Monocytes Percent Auto 10.9 % (2.6-8.5); Neutrophils Absolute Auto 2.2 K/mm3 (1.3-6.7); Neutrophils Percent Auto 65.5 % (45.5-73.1); Platelet Count Result 67 k/mm3 (150-375); Red Blood Count 2.92 M/mm3 (4.6-6.20); Red Cell Distribution Width 16.5 % (11.5-14.5); White Blood Count 3.4 K/mm3 (4.5-10.0)
[2020-03-30 05:32] LABS: Lactic Acid Reflex 0.8 mmol/L (0.7-2.1)
[2020-03-30 05:37] LABS: Alanine Aminotransferase 9 U/L (4-50); Albumin Level 2.1 g/dL (3.5-5.1); Alkaline Phosphatase 66 U/L (38-126); Anion Gap 0 mmol/L (8-16); Aspartate Amino Transferase 23 U/L (17-59); Bilirubin,Total 0.4 mg/dL (0.2-1.3); Blood Urea Nitrogen 6 mg/dL (9-20); Carbon Dioxide 25 mmol/L (22-30); Chloride 105 mmol/L (98-107); Estimated CRCL calculation 111 ml/min; Estimated Glomerular Filt Rate > 60; Glucose 93 mg/dL (75-110); Magnesium 1.6 mg/dL (1.6-2.3); Potassium 3.6 mmol/L (3.4-5.0); Sodium 130 mmol/L (137-145)
[2020-03-30 07:05] LABS: Free T4 Free Thyroxine Reflex 1.24 ng/dL (0.78-2.19)
[2020-03-30 07:50] LABS: Total Triiodothyronine (T3) 0.76 NG/ML (0.97-1.69)
--- NOTE | 2020-03-30 10:23 | WPDINFPN2 ---
Progress Note: A&P Assessment and Plan (1) Blood bacterial culture positive: Code(s): R78.81 - Bacteremia Status: Acute Assessment and Plan: 1. CNSS bacteremia with infection, port source likely 2. Esophageal cancer 3. Chest pain REC Vanc #2, redo BCs in process Subjective Date/time seen: 03/30/20 10:23 Objective Data Vital Signs Vital Signs: Vital Signs - 24 hr 03/29/20 18:16 03/29/20 18:20 03/29/20 20:00 Temperature 36.9 C Pulse Rate 97 84 Pulse Rate [Right Radial] 80 84 Respiratory Rate 22 H 16 Blood Pressure 127/88 108/68 Pulse Oximetry 99 98 03/29/20 21:21 03/30/20 00:00 03/30/20 00:51 Temperature 36.3 C L Pulse Rate 88 79 78 Pulse Rate [Right Radial] 84 Respiratory Rate 18 18 Blood Pressure 110/82 Pulse Oximetry 97 03/30/20 04:00 03/30/20 08:00 Temperature 36.3 C L 36.3 C L Pulse Rate 78 81 Pulse Rate [Right Radial] 78 81 Respiratory Rate 20 18 Blood Pressure 120/80 117/80 Pulse Oximetry 97 96 Intake/Output Intake/Output: Intake & Output 03/27/20 03/28/20 03/29/20 03/30/20 23:59 23:59 23:59 23:59 Intake Total 490 600 Output Total 700 Balance 490 -100 Meds/Results Medications: Active Medications Generic Name Dose Route Start Last Admin Trade Name Freq PRN Reason Stop Dose Admin Albuterol 2 puff 03/29/20 19:59 03/30/20 00:10 Albuterol Sulfate (*Sp) Aerosol 1 Puff INHALATION 2 puff Q6H PRN Administration Shortness Of Breath Or Wheezing Atorvastatin Calcium 10 mg 03/30/20 09:00 Atorvastatin 10 Mg Tablet PO DAILY SHAZIA Calcitriol 0.5 mcg 03/30/20 09:00 Calcitriol 0.25 Mcg Capsule PO 04/29/20 09:01 DAILY [facility] Chlordiazepoxide HCl 25 mg 03/29/20 18:00 03/30/20 05:10 Chlordiazepoxide (*Crx) 25 Mg Capsule PO 25 mg Q6HR SHAZIA Administration Famotidine 20 mg 03/29/20 21:00 03/29/20 21:21 Famotidine 20 Mg/2 Ml Vial IV PUSH 20 mg Q12HR SHAZIA Administration Ferrous Sulfate 324 mg 03/30/20 08:00 Ferrous Sulfate 324 Mg Tablet PO DAILY@0800 [facility] Fluticasone Propionate 2 spray 03/29/20 21:00 03/29/20 21:23 Fluticasone Propionate 0.05% Na Spr 16 Gm Btl (*Bkc) NASAL 2 spray HS SHAZIA Administration Folic Acid 1 mg 03/30/20 09:00 Folic Acid 1 Mg Tablet PO DAILY [facility] Heparin Sodium (Porcine) 500 units 03/30/20 07:33 Heparin Sod Flush 500 Units/5 Ml Syringe IV PUSH PRN PRN see comments below Vancomycin HCl 1,000 mg in 250 mls @ 250 mls/hr 03/29/20 21:00 03/29/20 21:09 Vancomycin 1,000 Mg/D5w 250 Ml IVPB Infused Q12H SHAZIA Infusion Levothyroxine Sodium 25 mcg 03/30/20 06:30 03/30/20 05:10 Levothyroxine Sodium 25 Mcg Tablet PO 25 mcg DAILY@0630 [facility] Administration Lorazepam 0.5 mg 03/29/20 18:23 Lorazepam Inj (*Crx) 2 Mg/Ml Vial IV PUSH Q6H PRN Anxiety Magnesium Oxide 400 mg 03/30/20 09:00 Magnesium Oxide 400 Mg Tablet PO 04/29/20 09:01 DAILY [facility] Melatonin 5 mg 03/29/20 22:02 Melatonin 5 Mg Tablet PO HS PRN Insomnia Metoprolol Tartrate 25 mg 03/29/20 21:00 03/29/20 21:21 Metoprolol Tartrate 25 Mg Tablet PO 25 mg Q12HR [facility] Administration Ondansetron HCl 4 mg 03/29/20 18:16 Ondansetron Inj 4 Mg/2 Ml Vial IV PUSH Q6H PRN Nausea And Vomiting Sodium Chloride 10 ml 03/30/20 14:00 Central Line Flush IV PUSH Q8HR SHAZIA Sodium Chloride 10 ml 03/30/20 07:33 Central Line Flush IV PUSH PRN PRN before/after int. infusion Sodium Chloride 20 ml 03/30/20 07:33 Central Line Flush IV PUSH PRN PRN after blood draws Thiamine HCl 100 mg 03/30/20 09:00 Thiamine Hcl 100 Mg Tablet PO QAM [facility] Trazodone HCl 100 mg 03/29/20 19:59 03/29/20 21:22 Trazodone Hcl 50 Mg Tablet PO 100 mg HS PRN Administration Sleep Labs Labs: Laboratory Results - last 24 hr 03/29/20 03/29/20 03/29/20 18:41 18:41 18:41
--- NOTE | 2020-03-30 10:33 | CONS_ITS ---
REASON FOR CONSULTATION Staphylococcus bacteremia. HISTORY OF PRESENT ILLNESS A 59-year-old male who is a poor historian. ?He also has hearing loss. ?He was admitted to [facility] with chest pain starting on the . ?He has had previous similar admissions at this hospital as well. ?While at [place] [facility], the patient underwent investigation for his chest pain. ?No cardiovascular interventions plan. He has now been started on vancomycin day 2, and consultation requested. ?He was transferred here yesterday for further evaluation. ?He has not required any vasopressors, supplemental O2. ?In addition, his chest pain which is precordial and persistent. ?He has also had some dyspnea, dysuria in the urethra. ?No fever, rigors, nor night sweats. ALLERGIES None known. BODY AFTER ALLERGIES PRESENT MEDICATIONS Home medications include no systemic immunosuppressants. ?He was on levofloxacin prior to admission. ?Details not available. HABITS Alcoholism and tobacco half pack per day. SOCIAL HISTORY He is disabled, single, lives in [place]. FAMILY HISTORY Alzheimer's, cancer. PAST MEDICAL HISTORY Cholecystectomy, hernia repair, partial gastrectomy, partial thyroidectomy, esophageal cancer as above, previous MA, thyroid cancer, peripheral neuropathy, PUD, nephrolithiasis, hypothyroidism, hypertension, hepatic steatosis, previous DVT, compression fracture, BPH. ?He had a Port-A-Cath placed several months ago, but does not remember the details. REVIEW OF SYSTEMS 14-point review otherwise, negative except as noted above. PHYSICAL EXAMINATION GENERAL: ?This is a middle-aged male, who appears older than his actual age. ?No respiratory distress. VITAL SIGNS: ?His temperature on arrival at [facility] was 37.8 and since then he has been afebrile, 117/80, 81, 18, 96% room air. SKIN: ?No generalized rashes. ?Warm and dry. EENT: Conjunctivae are clear. ?Pupils equal and round. ?No paranasal sinus, erythema, edema or tenderness. NECK: No masses, meningismus, thyromegaly, stridor. LUNGS: ?Clear to auscultation and percussion with good air entry. CHEST: He has a right upper chest port in place accessed. ?No hematoma nor skin breakdown. ABDOMEN: ?Nontender, soft. Upper abdomen surgical scars. ?No masses. ?No organomegaly. : ?Bladder is not palpable. EXTREMITIES: ?1+ edema. LABORATORY DATA Blood cultures from March 2604/12 sets coagulase-negative Staph species. ?Blood cultures have been repeated here and are no growth after a very short incubation. ?He had a total of 4 sets done, two in cancer registry manager, two in the evening. ?White count 3.4, hemoglobin 8.7, platelets are 67,000. ?Differential is normal with mild hyponatremia. ?BUN 6, creatinine 0.6. ?Calcium 7.0. ?Liver function tests normal except for an albumin 2.1. ?TSH is high. ?His urinalysis, multiple abnormalities that do not suggest infection. ?His austin virus assay on March 26 was negative. ?Legionella assay nonreactive. RADIOLOGY Chest x-ray performed on March 26, no active disease, advanced osteoarthritis, healed rib fractures. ASSESSMENT Coagulase-negative Staph bacteremia. ?I suspect true infection, not skin contaminant. ?He is undergoing radiation therapy for his esophageal cancer and he may have staphylococcal infection of the mucosal wall. ?However, more likely, I think this represents infection of the Port-A-Cath in the endovascular compartment. ?Exam does not suggest tunnel or pocket infection.? Fever due to the above. ?Other sources are unlikely including pneumonia, urinary tract infection or intraabdominal infection.? Esophageal cancer with immunocompromise.? Mild leukopenia without neutropenia.? Alcoholism.? Benign prostatic hypertrophy with dysuria, but current UA is done without growth.? RECOMMENDATIO
--- NOTE | 2020-03-30 10:35 | PM.CNGS ---
Assessment and Plan Assessment and plan (1) Blood bacterial culture positive: Code(s): R78.81 - Bacteremia Status: Acute Assessment and Plan: We have been asked to see the patient due to possible need for Port-A-Cath removal. The initial set of blood cultures from 03/26 showed growth of coag negative staphylococcus, sensitive to Vancomycin. Repeat blood cultures were drawn yesterday and pending. Although the patient has not been receiving chemotherapy through the port, he does report the port being used for IV access and blood draws. There is a possibility that the port could be the source for the bacteremia. We would recommend to continue IV antibiotics per ID and will await their recommendations regarding removing the port. If it is felt that the port needs to be removed, then we would be able to proceed with this during his hospitalization. I briefly discussed the procedure, risks, benefits, indications, and expected outcomes with the patient in case this is needed. Answered all of the patient's questions. The patient did request that we preserve his port if at all possible for the purpose of IV access/blood draws, since he has difficulty with peripheral venous access. Thank you for allowing us to see the patient in consultation and we will continue to follow along with you. (2) Port-A-Cath in place: Code(s): Z95.828 - Presence of other vascular implants and grafts Status: Acute Assessment and Plan: See plan above. 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 Santana. Patient is under the impression that the recommendations from the radiation oncologist is solely doing radiation therapy, but looking into the patient's EMR, it appears there have been recommendations of concurrent chemoradiotherapy. Discussed this with Dr. Burris, who will try to speak with Oncology and ask them to clarify their recommendations of the patient's treatment when he is seen again as an outpatient. (4) Chronic liver disease: Code(s): K76.9 - Liver disease, unspecified Status: Acute (5) ETOHism: Code(s): F10.20 - Alcohol dependence, uncomplicated Status: Acute Assessment and Plan: Encouraged cessation. (6) Abnormal finding on urinalysis: Code(s): R82.90 - Unspecified abnormal findings in urine Status: Acute Assessment and Plan: When initially evaluated at [facility], which he was treated for with antibiotics. Urine culture was apparently negative. Urinary symptoms resolved. (7) Chest discomfort: Code(s): R07.89 - Other chest pain Status: Acute (8) Anemia: Qualifiers: Anemia type: unspecified type Qualified Code(s): D64.9 - Anemia, unspecified Code(s): D64.9 - Anemia, unspecified Status: Acute (9) Hypertension: Code(s): I10 - Essential (primary) hypertension Status: Acute Additional Plan Discussed the patient's case and plan of care with Dr. Burris. History of Present Illness Consult details Consult date: 03/30/20 Reason for consult: other (Bacteremia with potential source being Port-A-Cath, possible evaluation for removal of port) Requesting physician: Sarahi Bacon NP Narrative: This is a 59-year-old male with a history of multiple co-morbidities who is undergoing radiation treatment by Dr. Santana for esophageal cancer. He was diagnosed in October of 2019 and reportedly had a Port-A-Cath placed around that time. Since then, he has only received radiation treatments, but has not had any chemotherapy. He is followed by Dr. Santana and has also been seen by Dr. Faye. The patient presented to [facility] ER on 03/26/20 with complaints of chest pain. He had a cardiac workup that ruled out acute coronary syndrome. Labs revealed a lactic acid of 5.1 and whit
[2020-03-30] MEDS: FAMOTIDINE 20 MG/2 ML VIAL IV PUSH ×2 (11:03→20:38)
[2020-03-30] MEDS: CENTRAL LINE FLUSH 10 ML IV PUSH ×2 (16:28→22:12)
--- NOTE | 2020-03-30 16:51 | PM.IMPN ---
Progress Note: A&P Assessment and Plan (1) Sepsis: Code(s): A41.9 - Sepsis, unspecified organism Status: Acute Assessment and Plan: patient had been on Bactrim and Pyridium for UTI. I resume the vancomycin. The patient had 2 blood cultures at [facility] on 1 did not have enough blood the other 1 had Gram-positive cocci in clusters. Which could be a contaminant. I did speak with Dr. Burris the surgeon here at [facility]. he stated that he would see the patient if we felt there was an infection in the Port-A-Cath. There is no signs and symptoms of any infection in the Port-A-Cath. We did recheck blood cultures. Recheck his urine. Patient does not appear to be septic. Recheck lactic. His lactic was coming back down to normal. 03/30/20 16:51 Patient is 59-year-old male with history of esophageal cancer he initially patient was admitted with [facility] and blood culture were positive coagulase negative staph aureus and patient was transferred to the [facility] concerning the patient's chemotherapy port may be infected, patient was seen by Dr. escalante suspect the chemotherapy port is infected and may need to be removed, patient is on vancomycin, seen by surgery service and further recommendation to follow, his clinically stable denies any fever or chills will continue to monitor (2) ETOHism: Code(s): F10.20 - Alcohol dependence, uncomplicated Status: Acute Assessment and Plan: The patient does have a history of alcoholism. The patient drink last about 3 days ago. Will continue with the C wall and will continue with scheduled Librium folic acid thiamin. I am wondering if his lactic acid was elevated due to his alcoholism. (3) Anemia: Qualifiers: Anemia type: unspecified type Qualified Code(s): D64.9 - Anemia, unspecified Code(s): D64.9 - Anemia, unspecified Status: Acute Assessment and Plan: Continue to check his H&H. It did drop some it had been 9.2 on 03/28 and dropped down to 8.8 today. Will check his stool. The patient stated that he always has dark stools because he is on iron. (4) Squamous cell carcinoma of esophagus: Code(s): C15.9 - Malignant neoplasm of esophagus, unspecified Status: Acute Assessment and Plan: I did consult Dr. duncan did the patient states that he is taken half of his radiation treatments and needs to take the other half yet. The patient stated that he refused to take chemotherapy. He would like his Port-A-Cath removed. However explained that it does not look like it is infected at this point. (5) Major depression: Qualifiers: Major depression recurrence: recurrent Active/Remission status: currently active Major depression episode severity: unspecified Qualified Code(s): F33.9 - Major depressive disorder, recurrent, unspecified Code(s): F32.9 - Major depressive disorder, single episode, unspecified Status: Acute Assessment and Plan: Continue with home medications. (6) Chronic deep vein thrombosis (DVT) of femoral vein of left lower extremity: Onset Date: Unknown Code(s): I82.512 - Chronic embolism and thrombosis of left femoral vein Status: Chronic Assessment and Plan: Patient is no longer on any anticoagulation. The patient has chronic thrombocytopenia. His last platelets were 75. (7) Hypothyroidism: Code(s): E03.9 - Hypothyroidism, unspecified Status: Chronic Assessment and Plan: Continue with patient's home medications. Subjective Date/time seen: 03/30/20 16:51 Patient is 59-year-old male with history of esophageal cancer he initially patient was admitted with [facility] and blood culture were positive coagulase negative staph aureus and patient was transferred to the [facility] concerning the patient's chemotherapy port may be infected, patient was seen by
[2020-03-30] MEDS: FERROUS SULFATE 324 MG TABLET PO (17:09)
[2020-03-30] MEDS: calcitrioL 0.25 MCG CAPSULE 0.5 MCG PO (17:09)
[2020-03-30] MEDS: ATORVASTATIN 10 MG TABLET PO (17:09)
[2020-03-30] MEDS: THIAMINE HCL 100 MG TABLET PO (17:09)
[2020-03-30] MEDS: FOLIC ACID 1 MG TABLET PO (17:09)
[2020-03-30] MEDS: MAGNESIUM HYDROXIDE SUSP 30 ML UDC PO (17:10)
[2020-03-30] MEDS: MAGNESIUM OXIDE 400 MG TABLET PO (17:10)
--- NOTE | 2020-03-30 18:07 | PDONCCN ---
HPI - Date of Consult Date/Time: 03/30/20 18:07 Requesting Physician: Dorcas Galindo MD Primary Care Provider: Shirin Murray MD - Consult Narrative Reason for consult: Locally advanced esophageal cancer. Narrative: Calixto Lyons is a 59 year old male with history of alcoholism and locally advanced esophageal cancer. He was not a surgical candidate and definitive chemoradiation therapy was recommended. He decided against getting chemotherapy. He is currently receiving radiation therapy and apparently has 13 more treatment left. Patient now came into the hospital transferred from [facility] where he presented with chest pain. His initial troponin was found to be mildly elevated. His lactic acid was elevated as well. Cultures done in the ER at [facility] showed Gram-positive cocci in cluster. Patient was started on vancomycin. CT abdomen and pelvis showed appendicitis. Dr. escalante is following the patient and patient has been treated for bacteremia with possible MediPort infection. He denies any fevers and chills. Denies any pain at the port site. Review of Systems - Review of Systems All systems reviewed & are unremarkable except as noted in HPI and bel - Neurologic Reports system reviewed and no additional complaints, except as documented, Reports hearing normal, Denies syncope, Denies headache(s), Denies loss of vision, Denies tingling, Denies tremor(s) [facility] Medical History: Medical History (Last Updated 03/30/20 @ 11:46 by KINGA Nuñez) Abnormal colonoscopy Abnormal EKG Acute hypokalemia Acute UTI Alcohol abuse Anxiety Benign prostatic hyperplasia Chronic anemia Compression fracture Including thoracic and lumbar compression fractures. Deep venous thrombosis Left femoral vein, left internal jugular, and let axillary veins noted on ultrasound in May 2019. Hepatic steatosis Hypertension Hypomagnesemia Hypothyroidism Kidney stones Major depression Nicotine use disorder Peptic ulcer disease Remote history of perforated peptic ulcer status post partial gastrectomy. Peripheral neuropathy Substance abuse Suicidal ideation Thyroid cancer Status post partial thyroidectomy. Previously on levothyroxine. Type 2 NV (myocardial infarction) Onset Date: ~08/2016 No ischemic cardiac evaluation was undertaken. Surgical History: Surgical History (Last Reviewed 03/30/20 @ 10:36 by KINGA Nuñez) H/O esophagogastroduodenoscopy History of cholecystectomy History of hernia repair Multiple ventral hernia repairs including incisional hernia repair, some with mesh. History of partial gastrectomy For perforated peptic ulcer. History of partial thyroidectomy For thyroid cancer. Family History: Family History (Last Reviewed 03/30/20 @ 10:36 by KINGA Nuñez) Father Cancer Mother Dementia Father Family history of malignant neoplasm Mother Family history of Alzheimer's disease - Social History Social History: Social History (Last Reviewed 03/30/20 @ 10:36 by KINGA Nuñez) Gender Identity: Gender identity (if verbalized by the patient): Male Alcohol Use: Alcohol intake: current Drinks per week: 20 Substance Use: Substance use: current Substance use type: does not use Others: Spiritual care concerns: No Agree to blood products: Yes Smoking Status: Smoking status: Current every day smoker Tobacco type: cigarettes Second hand tobacco smoke exposure: Yes Smoking Pack-years: Smoking packs per day: 0.5 Smoking cigarettes per day: 2 Years smoked: 45 Smoking pack-years: 4.50 Comments: Additional smoking assessment comments: Typically smokes between 2 and 6 cigarettes a day. Meds Home Medications Medication Instructions Recorded Confirmed Type ferrous sulfate 324 mg PO DAILY 30 Days #30 tablet 03/02/19 03/29/20 Rx albuterol sulfate 2 puff INHALAT
[2020-03-30 19:42] LABS: Iron 36 ug/dL (49-181)
[2020-03-30 19:52] LABS: Percent Iron Saturation 20 % (20-50)
[2020-03-30 19:59] LABS: Folic Acid 14.8 ng/mL (2.76->20)
[2020-03-30] MEDS: METOPROLOL TARTRATE 25 MG TABLET PO (20:38)
[2020-03-30] MEDS: FLUTICASONE PROPIONATE 0.05% NA SPR 16 GM BTL (*BKC) 2 SPRAY NASAL (20:38)
[2020-03-30] MEDS: traZODone HCL 50 MG TABLET 100 MG PO (22:19)
[2020-03-30] MEDS: MELATONIN 5 MG TABLET PO (22:20)
[2020-03-31] VITALS (9 sets, daily range): BP systolic 88–136; BP diastolic 64–89; PULSE 70–97; RESP 15–23; TEMP 35.9–36.9; O2SAT 99–100; BMI 23.3
[2020-03-31] MEDS: chlordiazePOXIDE (*CRX) 25 MG CAPSULE PO ×4 (00:03→18:20)
[2020-03-31] MEDS: LEVOTHYROXINE SODIUM 25 MCG TABLET PO (06:27)
[2020-03-31] MEDS: CENTRAL LINE FLUSH 10 ML IV PUSH ×3 (06:27→22:32)
[2020-03-31 08:22] LABS: Basophils Percent Auto 0.2 % (0.2-1.2); Eosinophils Absolute Auto 0.2 K/mm3 (0-0.3); Eosinophils Percent Auto 3.9 % (0-4.4); Hematocrit 27.2 % (42.0-52.0); Hemoglobin 8.9 g/dL (14.0-18.0); Immature Granulocyte Absolute 0.02 K/mm3 (0.00-0.031); Immature Granulocyte Percent A 0.5 % (0-0.5); Immature Platelet Fraction Pct 4.2 % (0.9-11.2); Lymphocytes Absolute Auto 0.79 K/mm3 (0.9-3.2); Lymphocytes Percent Auto 19.3 % (18.3-44.2); Mean Corpuscular HGB Conc 32.7 g/dl (32-36); Mean Corpuscular Hemoglobin 29.2 pg (26-34); Mean Corpuscular Volume 89.2 fl (80-100); Mean Platelet Volume 10.6 fl (7.4-10.4); Monocytes Absolute Auto 0.6 K/mm3 (0.1-0.6); Monocytes Percent Auto 14.1 % (2.6-8.5); Neutrophils Absolute Auto 2.5 K/mm3 (1.3-6.7); Platelet Count Result 87 k/mm3 (150-375); Red Blood Count 3.05 M/mm3 (4.6-6.20); Red Cell Distribution Width 16.6 % (11.5-14.5); White Blood Count 4.1 K/mm3 (4.5-10.0)
[2020-03-31 08:33] LABS: Anion Gap -1 mmol/L (8-16); Blood Urea Nitrogen 6 mg/dL (9-20); Calcium 7.1 mg/dL (8.4-10.2); Carbon Dioxide 26 mmol/L (22-30); Chloride 105 mmol/L (98-107); Estimated CRCL calculation 111 ml/min; Estimated Glomerular Filt Rate > 60; Glucose 88 mg/dL (75-110); Magnesium 1.5 mg/dL (1.6-2.3); Potassium 3.6 mmol/L (3.4-5.0); Sodium 130 mmol/L (137-145)
[2020-03-31 09:05] LABS: Vancomycin Trough 13.6 ug/mL (10.0-20.0)
[2020-03-31] MEDS: FERROUS SULFATE 324 MG TABLET PO (09:33)
[2020-03-31] MEDS: FOLIC ACID 1 MG TABLET PO (09:34)
[2020-03-31] MEDS: ATORVASTATIN 10 MG TABLET PO (09:34)
[2020-03-31] MEDS: FAMOTIDINE 20 MG/2 ML VIAL IV PUSH ×2 (09:34→20:54)
[2020-03-31] MEDS: calcitrioL 0.25 MCG CAPSULE 0.5 MCG PO (09:34)
[2020-03-31] MEDS: METOPROLOL TARTRATE 25 MG TABLET PO ×2 (09:35→20:54)
[2020-03-31] MEDS: THIAMINE HCL 100 MG TABLET PO (09:35)
[2020-03-31] MEDS: MAGNESIUM OXIDE 400 MG TABLET PO (09:35)
[2020-03-31] MEDS: POTASSIUM CHLORIDE 20 MEQ TABLET 40 MEQ PO (10:38)
[2020-03-31] MEDS: ALBUTEROL SULFATE (*SP) AEROSOL 1 PUFF 2 PUFF INHALATION (10:39)
[2020-03-31] MEDS: MAGNESIUM SULF 2 GM/WATER 50ML 2 GM/50 ML BAG IVPB (10:55)
[2020-03-31] MEDS: HYDROcodone/acetaminophen (*CRX) 7.5-325 MG TABLET 1 TAB PO ×2 (11:41→18:00)
[2020-03-31] MEDS: HEPARIN SOD FLUSH 500 UNITS/5 ML SYRINGE IV PUSH ×2 (11:47→13:00)
--- NOTE | 2020-03-31 11:48 | PC.NURSE ---
0930 - Pt C/O abdominal pain and tenderness to palpation in all quadrants. notified and will come to assess patient.
--- NOTE | 2020-03-31 12:29 | PM.PNGS ---
Progress Note: A&P Assessment and Plan (1) Hyperplasia, appendix: Onset Date: ~03/30/20 Code(s): K38.0 - Hyperplasia of appendix Status: Acute Assessment and Plan: Yesterday's CT scan because the patient is occasionally complaining of abdominal pain revealed a dilated appendix without surrounding inflammatory changes. I reviewed the CT scan with Dr. Blood in radiology today. We reviewed the CT done in October of 2019 and the appendix was 9 mm in size at that time and 10 mm yesterday. He believes that there is some fatty infiltration of the appendix without obvious signs of appendicitis. For now will probably continue Zosyn 24 more hours see how the patient does with his abdominal pain and a repeat his white count and consider stopping it while continuing the anti-Staph therapy tomorrow depending on the blood cultures and Dr. River's recommendations. Patient is hungry and I doubt that he has true appendicitis. (2) Staph infection: Onset Date: ~03/26/20 Code(s): B95.8 - Unspecified staphylococcus as the cause of diseases classified elsewhere Status: Acute Assessment and Plan: Chest pain and this is the main reason for his admission. He has had 1 blood culture which turned out positive for coagulase negative Staph. Is unclear whether this was drawn from his port or peripherally. Right now we are waiting on repeat blood cultures. (3) Blood bacterial culture positive: Code(s): R78.81 - Bacteremia Status: Acute (4) Hypothyroidism: Code(s): E03.9 - Hypothyroidism, unspecified Status: Chronic (5) Port-A-Cath in place: Code(s): Z95.828 - Presence of other vascular implants and grafts Status: Acute Assessment and Plan: For now we are planning to try to save the Port-A-Cath. Will await Dr. River's disposition and recommendations regarding this. Further blood cultures are pending and preliminarily are negative. 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 Status: Acute (8) ETOHism: Code(s): F10.20 - Alcohol dependence, uncomplicated Status: Acute (9) Alcohol abuse: Code(s): F10.10 - Alcohol abuse, uncomplicated Status: Acute (10) Hypertension: Code(s): I10 - Essential (primary) hypertension Status: Acute (11) CAD (coronary atherosclerotic disease): Onset Date: Unknown Code(s): I25.10 - Atherosclerotic heart disease of [place] coronary artery without angina pectoris Status: Acute Subjective Subjective Date/Time Seen: 03/31/20 12:29 Patient lying in bed complaining of some mild chest pain across the anterior chest this morning when I saw him. Denies abdominal pain in LEs is abdomen is touched or palpated. He is hungry. Review of Systems Constitutional: Constitutional: Reports no additional constitutional complaints ENT: Reports other (Mucous Membranes moist.) Cardiovascular: Cardiovascular: Denies dyspnea Respiratory: Respiratory: Denies pain on inspiration and Denies dyspnea Comments: Subjective pain across the anterior chest mid thoracic level. Gastrointestinal: Comments: On and off complaints about mild abdominal pain that is nonspecific. Genitourinary: Genitourinary: Denies dysuria and Denies urinary incontinence Musculoskeletal: Musculoskeletal: Reports other (No calf swelling or edema) Integumentary/Breasts: Skin/Breast: Reports system reviewed and no additional complaints, except as docu Exam Const: General: cooperative, no acute distress, alert and awake Orientation/consciousness: patient oriented x3 HENMT: Mouth: Yes moist mucous membranes Neck: Neck: normal visual inspection Chest: Chest palpation & inspection
--- NOTE | 2020-03-31 13:28 | PCPTNOTE ---
Attempted PT eval. RN stated to hold PT due to low BP. Will try again tomorrow.
[2020-03-31] MEDS: SODIUM CHLORIDE 0.9% IV 250 ML 100 ML IV CONT (14:28)
--- NOTE | 2020-03-31 14:46 | PC.NURSE ---
1230 - Pt up pin chair with OT. Pt BP is 88/66, pt states a Little lightheaded'. No other symptoms noted. Patient put back in bed. Pressure then 89/65. Dr. Salinas notified and orders noted for fluid bolus.
--- NOTE | 2020-03-31 16:27 | WPDINFPN2 ---
Progress Note: A&P Assessment and Plan (1) Blood bacterial culture positive: Code(s): R78.81 - Bacteremia Status: Acute Assessment and Plan: 1. CNSS bacteremia with infection, port source likely. Repeat 4 sets ngsf 2. Esophageal cancer 3. Chest pain 4. Appendicitis by CT REC Vanc #3, continue. The port can remain in place for now. Also on PipTazo #2 for #4. Subjective Date/time seen: 03/31/20 16:27 Interval history: no abd pain, chest pain same Exam Narrative: Exam Narrative: afebrile Const: General: no acute distress Neck: Neck: no JVD Other: port accessed R upper, mild erythema superior and medial to pocket, no skin breakdown and no fluctuance Resp: Effort & Inspection: normal respiratory effort Auscultation: clear to auscultation bilaterally Cardio: Rate: regular rate Rhythm: regular rhythm Heart sounds: no murmurs GI: Inspection: non-distended GI Palp: No Tenderness to palpation present (GI) and No Guarding due to palpation present (GI) Objective Data Vital Signs Vital Signs: Vital Signs - 24 hr 03/30/20 20:00 03/30/20 20:38 03/31/20 00:00 Temperature 36.6 C 36.8 C Pulse Rate 88 83 74 Pulse Rate [Bilateral Radial] 89 79 Respiratory Rate 19 19 Blood Pressure 135/75 136/83 Pulse Oximetry 99 99 03/31/20 04:00 03/31/20 08:00 03/31/20 09:35 Temperature 36.9 C 36.2 C L Pulse Rate 74 77 72 Pulse Rate [Bilateral Radial] 81 Respiratory Rate 22 H 16 Blood Pressure 136/82 136/81 Pulse Oximetry 99 100 03/31/20 12:00 03/31/20 15:15 Temperature 35.9 C L Pulse Rate 77 Pulse Rate [Bilateral Radial] Respiratory Rate 16 Blood Pressure 88/66 L 97/64 L Pulse Oximetry 100 Intake/Output Intake/Output: Intake & Output 03/28/20 03/29/20 03/30/20 03/31/20 23:59 23:59 23:59 23:59 Intake Total 490 1650 690 Output Total 1700 900 Balance 752 -50 -210 Meds/Results Medications: Active Medications Generic Name Dose Route Start Last Admin Trade Name Freq PRN Reason Stop Dose Admin Hydrocodone Bitart/Acetaminophen 1 tab 03/31/20 11:29 Hydrocodone/Acetaminophen (*Crx) 5-325 Mg Tablet PO Q6H PRN Pain Rated 4-6 Hydrocodone Bitart/Acetaminophen 1 tab 03/31/20 11:29 03/31/20 11:41 Hydrocodone/Acetaminophen (*Crx) 7.5-325 Mg Tablet PO 1 tab Q6H PRN Administration Pain Rated 7-10 Albuterol 2 puff 03/29/20 19:59 03/31/20 10:39 Albuterol Sulfate (*Sp) Aerosol 1 Puff INHALATION 2 puff Q6H PRN Administration Shortness Of Breath Or Wheezing Atorvastatin Calcium 10 mg 03/30/20 09:00 03/31/20 09:34 Atorvastatin 10 Mg Tablet PO 10 mg DAILY SHAZIA Administration Calcitriol 0.5 mcg 03/30/20 09:00 03/31/20 09:34 Calcitriol 0.25 Mcg Capsule PO 04/29/20 09:01 0.5 mcg DAILY SHAZIA Administration Chlordiazepoxide HCl 25 mg 03/29/20 18:00 03/31/20 13:16 Chlordiazepoxide (*Crx) 25 Mg Capsule PO 25 mg Q6HR SHAZIA Administration Famotidine 20 mg 03/29/20 21:00 03/31/20 09:34 Famotidine 20 Mg/2 Ml Vial IV PUSH 20 mg Q12HR SHAZIA Administration Ferrous Sulfate 324 mg 03/30/20 08:00 03/31/20 09:33 Ferrous Sulfate 324 Mg Tablet PO 324 mg DAILY@0800 SHAZIA Administration Fluticasone Propionate 2 spray 03/29/20 21:00 03/30/20 20:38 Fluticasone Propionate 0.05% Na Spr 16 Gm Btl (*Bkc) NASAL 2 spray HS SHAZIA Administration Folic Acid 1 mg 03/30/20 09:00 03/31/20 09:34 Folic Acid 1 Mg Tablet PO 1 mg DAILY SHAZIA Administration Heparin Sodium (Porcine) 500 units 03/30/20 07:33 03/31/20 13:00 Heparin Sod Flush 500 Units/5 Ml Syringe IV PUSH 500 units PRN PRN Administration see comments below Vancomycin HCl 1,000 mg in 250 mls @ 250 mls/hr 03/29/20 21:00 03/31/20 10:35 Vancomycin 1,000 Mg/D5w 250 Ml IVPB Infused Q12H SHAZIA Infusion Piperacillin/Tazobactam/Dextrose 3.375 gm in 50 mls @ 100 mls/hr 03/30/20 17:00 03/31/20 15:07 Zosyn 3.375 Gm/D5w 50ml Pm I
--- NOTE | 2020-03-31 16:29 | PM.IMPN ---
Progress Note: A&P Assessment and Plan (1) Sepsis: Code(s): A41.9 - Sepsis, unspecified organism Status: Acute Assessment and Plan: 03/31/20 16:29 patient had been on Bactrim and Pyridium for UTI. I resume the vancomycin. The patient had 2 blood cultures at [facility] on 1 did not have enough blood the other 1 had Gram-positive cocci in clusters. Which could be a contaminant. I did speak with Dr. Burris the surgeon here at [facility]. he stated that he would see the patient if we felt there was an infection in the Port-A-Cath. There is no signs and symptoms of any infection in the Port-A-Cath. We did recheck blood cultures. Recheck his urine. Patient does not appear to be septic. Recheck lactic. His lactic was coming back down to normal. 03/30/20 16:51 Patient is 59-year-old male with history of esophageal cancer he initially patient was admitted with [facility] and blood culture were positive coagulase negative staph aureus and patient was transferred to the [facility] concerning the patient's chemotherapy port may be infected, patient was seen by Dr. escalante suspect the chemotherapy port is infected and may need to be removed, patient is on vancomycin, seen by surgery service and further recommendation to follow, his clinically stable denies any fever or chills will continue to monitor. 03/31 today patient was seen by Dr. escalante recommending to continue vancomycin repeat blood culture, suspect port a source of infection but remained until further evaluation, patient also had a complaint abdominal pain was seen by surgery team CT scan was evaluated does not suspect patient has appendicitis patient is started on Zosyn, will monitor white count or if there is any fever further recommendation to follow, patient was seen arc cutter oncologist recommending CT scan of the chest to further evaluate radiation therapy, patient may need chemotherapy in near future, will continue to monitor and further recommendation to follow (2) ETOHism: Code(s): F10.20 - Alcohol dependence, uncomplicated Status: Acute Assessment and Plan: The patient does have a history of alcoholism. The patient drink last about 3 days ago. Will continue with the C wall and will continue with scheduled Librium folic acid thiamin. I am wondering if his lactic acid was elevated due to his alcoholism. (3) Anemia: Qualifiers: Anemia type: unspecified type Qualified Code(s): D64.9 - Anemia, unspecified Code(s): D64.9 - Anemia, unspecified Status: Acute Assessment and Plan: Continue to check his H&H. It did drop some it had been 9.2 on 03/28 and dropped down to 8.8 today. Will check his stool. The patient stated that he always has dark stools because he is on iron. (4) Squamous cell carcinoma of esophagus: Code(s): C15.9 - Malignant neoplasm of esophagus, unspecified Status: Acute Assessment and Plan: I did consult Dr. duncan did the patient states that he is taken half of his radiation treatments and needs to take the other half yet. The patient stated that he refused to take chemotherapy. He would like his Port-A-Cath removed. However explained that it does not look like it is infected at this point. (5) Major depression: Qualifiers: Major depression recurrence: recurrent Active/Remission status: currently active Major depression episode severity: unspecified Qualified Code(s): F33.9 - Major depressive disorder, recurrent, unspecified Code(s): F32.9 - Major depressive disorder, single episode, unspecified Status: Acute Assessment and Plan: Continue with home medications. (6) Chronic deep vein thrombosis (DVT) of femoral vein of left lower extremity: Onset Date: Unknown Code(s): I82.512 - Chronic embolism and thrombosis of left femoral vein Status: Chronic Assessment and Plan:
[2020-03-31] MEDS: FLUTICASONE PROPIONATE 0.05% NA SPR 16 GM BTL (*BKC) 2 SPRAY NASAL (20:54)
[2020-03-31] MEDS: traZODone HCL 50 MG TABLET 100 MG PO (22:24)
[2020-03-31] MEDS: MELATONIN 5 MG TABLET PO (22:24)
[2020-04-01] VITALS (13 sets, daily range): BP systolic 116–194; BP diastolic 80–119; PULSE 74–100; RESP 15–22; TEMP 36.2–36.8; O2SAT 95–99
[2020-04-01] MEDS: chlordiazePOXIDE (*CRX) 25 MG CAPSULE PO ×5 (00:11→23:04)
[2020-04-01] MEDS: HYDROcodone/acetaminophen (*CRX) 5-325 MG TABLET 1 TAB PO (00:16)
[2020-04-01] MEDS: LEVOTHYROXINE SODIUM 25 MCG TABLET PO (05:51)
[2020-04-01 06:02] LABS: Basophils Percent Auto 0.4 % (0.2-1.2); Eosinophils Absolute Auto 0.2 K/mm3 (0-0.3); Eosinophils Percent Auto 3.2 % (0-4.4); Hematocrit 33.6 % (42.0-52.0); Immature Granulocyte Absolute 0.03 K/mm3 (0.00-0.031); Immature Granulocyte Percent A 0.4 % (0-0.5); Immature Platelet Fraction Pct 4.1 % (0.9-11.2); Lymphocytes Absolute Auto 0.95 K/mm3 (0.9-3.2); Lymphocytes Percent Auto 12.8 % (18.3-44.2); Mean Corpuscular HGB Conc 32.7 g/dl (32-36); Mean Corpuscular Hemoglobin 29.3 pg (26-34); Mean Corpuscular Volume 89.4 fl (80-100); Mean Platelet Volume 9.5 fl (7.4-10.4); Monocytes Absolute Auto 1.2 K/mm3 (0.1-0.6); Neutrophils Percent Auto 67.2 % (45.5-73.1); Platelet Count Result 147 k/mm3 (150-375); Red Blood Count 3.76 M/mm3 (4.6-6.20); Red Cell Distribution Width 16.7 % (11.5-14.5); White Blood Count 7.5 K/mm3 (4.5-10.0)
[2020-04-01 06:19] LABS: Anion Gap -1 mmol/L (8-16); Blood Urea Nitrogen 9 mg/dL (9-20); Calcium 7.8 mg/dL (8.4-10.2); Carbon Dioxide 25 mmol/L (22-30); Chloride 107 mmol/L (98-107); Estimated CRCL calculation 111 ml/min; Estimated Glomerular Filt Rate > 60; Glucose 120 mg/dL (75-110); Lactic Acid Reflex 0.8 mmol/L (0.7-2.1); Potassium 3.7 mmol/L (3.4-5.0); Sodium 131 mmol/L (137-145)
[2020-04-01] MEDS: CENTRAL LINE FLUSH 10 ML IV PUSH ×4 (06:40→19:23)
[2020-04-01] MEDS: FERROUS SULFATE 324 MG TABLET PO (08:59)
[2020-04-01] MEDS: FAMOTIDINE 20 MG/2 ML VIAL IV PUSH ×2 (08:59→19:22)
[2020-04-01] MEDS: MAGNESIUM OXIDE 400 MG TABLET PO (09:00)
[2020-04-01] MEDS: calcitrioL 0.25 MCG CAPSULE 0.5 MCG PO (09:00)
[2020-04-01] MEDS: FOLIC ACID 1 MG TABLET PO (09:00)
[2020-04-01] MEDS: THIAMINE HCL 100 MG TABLET PO (09:00)
[2020-04-01] MEDS: METOPROLOL TARTRATE 25 MG TABLET PO ×2 (09:00→12:51)
[2020-04-01] MEDS: ATORVASTATIN 10 MG TABLET PO (09:00)
[2020-04-01] MEDS: HYDROcodone/acetaminophen (*CRX) 7.5-325 MG TABLET 1 TAB PO ×2 (09:18→15:09)
[2020-04-01 09:52] LABS: Magnesium 1.5 mg/dL (1.6-2.3)
--- NOTE | 2020-04-01 09:55 | PM.PNGS ---
Progress Note: A&P Assessment and Plan (1) Hyperplasia, appendix: Onset Date: ~03/30/20 Code(s): K38.0 - Hyperplasia of appendix Status: Acute Assessment and Plan: The CT scan done on 03/30 because the patient was occasionally complaining of abdominal pain revealed a dilated appendix without surrounding inflammatory changes. I reviewed the CT scan with Dr. Blood in radiology the day after the scan. We also reviewed the CT done in October of 2019 and the appendix was 9 mm in size at that time and 10 mm on 03/30/20. He believes that there is some fatty infiltration of the appendix without obvious signs of appendicitis. For now will probably continue Zosyn 24 more hours see how the patient does with his abdominal pain and a repeat his white count ( still normal today) and consider stopping it while continuing the anti-Staph therapy tomorrow depending on the blood cultures and Dr. River's recommendations. I doubt that he has true appendicitis. (2) Staph infection: Onset Date: ~03/26/20 Code(s): B95.8 - Unspecified staphylococcus as the cause of diseases classified elsewhere Status: Acute Assessment and Plan: Chest pain and this is the main reason for his admission. He has had 2 inital blood cultures from 03/26 which turned out positive for coagulase negative Staph. Is unclear whether this was drawn from his port or peripherally, However now that both of turned positive it seems at least 1 of them was drawn from his port.. Right now we are waiting on repeat blood cultures. (3) Blood bacterial culture positive: Code(s): R78.81 - Bacteremia Status: Acute (4) Hypothyroidism: Code(s): E03.9 - Hypothyroidism, unspecified Status: Chronic (5) Port-A-Cath in place: Code(s): Z95.828 - Presence of other vascular implants and grafts Status: Acute Assessment and Plan: For now we are planning to try to save the Port-A-Cath. Will await Dr. River's disposition and recommendations regarding this. Further blood cultures are pending and preliminarily are negative. 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 Burris. Subjective Subjective Date/Time Seen: 04/01/20 09:55 Patient lying in bed when I came in the room. Nurse states he was in the process just recently of having a bowel movement. Patient complains mainly of pain across his mid chest. Does state he would occasionally has some abdominal pain still. Still has somewhat loss of appetite. Did not feel like eating much breakfast this morning. Nurse reports no fever overnight. Review of Systems Constitutional: Constitutional: Reports as per HPI, Reports no additional constitutional complaints, Denies chills, Denies fatigue and Denies headache(s) Eyes: Eyes: Reports no additional eye complaints, Denies change in vision, Denies diplopia and Denies loss of vision ENT: Denies dysphagia, Denies dizziness, Denies headache(s) and Reports other (Mucous Membranes moist.) Cardiovascular: Cardiovascular: Reports no additional cardiovascular complaints, Reports chest pain, Denies syncope, Denies leg edema, Denies ligh
[2020-04-01] MEDS: SODIUM CHLORIDE 0.9% IV 1,000 ML 100 ML IV CONT ×2 (12:50→23:05)
[2020-04-01] MEDS: DOCUSATE SODIUM 100 MG CAPSULE PO (15:09)
--- NOTE | 2020-04-01 15:10 | WPDINFPN2 ---
Progress Note: A&P Assessment and Plan (1) Blood bacterial culture positive: Code(s): R78.81 - Bacteremia Status: Acute Assessment and Plan: 1. CNSS bacteremia with infection, port source likely. Repeat 4 sets ngsf 2. Esophageal cancer, locally advanced, on XRT 3. Chest pain 4. Appendicitis by CT, now with abdominal tenderness. REC Vanc #4, continue. The port can remain in place for now. Also on PipTazo #3 for #4. Subjective Date/time seen: 04/01/20 15:10 Interval history: no diarrhea, + abd pain Exam Narrative: Exam Narrative: afebrile Const: General: no acute distress Resp: Effort & Inspection: normal respiratory effort Auscultation: clear to auscultation bilaterally Cardio: Rate: regular rate Rhythm: regular rhythm Heart sounds: no murmurs GI: Inspection: non-distended GI Palp: Yes Firmness to palpation present (GI), Yes Tenderness to palpation present (GI) and Yes Guarding due to palpation present (GI) Percussion: Yes normal to percussion Auscultation: abnormal bowel sounds Skin: General skin exam: no rashes or lesions noted Objective Data Vital Signs Vital Signs: Vital Signs - 24 hr 03/31/20 15:15 03/31/20 16:00 03/31/20 20:00 Temperature 36.0 C L 36.2 C L Pulse Rate 71 97 Respiratory Rate 16 15 Blood Pressure 97/64 L 125/80 121/89 Pulse Oximetry 100 100 03/31/20 20:54 04/01/20 00:00 04/01/20 04:00 Temperature 36.3 C L 36.3 C L Pulse Rate 77 74 94 Respiratory Rate 18 18 Blood Pressure 147/89 H 138/99 H Pulse Oximetry 99 99 04/01/20 08:00 04/01/20 09:00 04/01/20 09:32 Temperature 36.7 C Pulse Rate 88 90 Respiratory Rate 19 Blood Pressure 194/111 H 189/119 H Pulse Oximetry 96 04/01/20 12:00 04/01/20 12:51 04/01/20 12:53 Temperature 36.8 C Pulse Rate 77 77 77 Respiratory Rate 15 Blood Pressure 163/104 H Pulse Oximetry 96 Intake/Output Intake/Output: Intake & Output 03/29/20 03/30/20 03/31/2021 23:59 23:59 23:59 23:59 Intake Total 490 1650 1230 400 Output Total 1700 1050 400 Balance 490 -50 180 0 Meds/Results Medications: Active Medications Generic Name Dose Route Start Last Admin Trade Name Freq PRN Reason Stop Dose Admin Hydrocodone Bitart/Acetaminophen 1 tab 03/31/20 11:29 04/01/20 00:16 Hydrocodone/Acetaminophen (*Crx) 5-325 Mg Tablet PO 1 tab Q6H PRN Administration Pain Rated 4-6 Hydrocodone Bitart/Acetaminophen 1 tab 03/31/20 11:29 04/01/20 15:09 Hydrocodone/Acetaminophen (*Crx) 7.5-325 Mg Tablet PO 1 tab Q6H PRN Administration Pain Rated 7-10 Albuterol 2 puff 03/29/20 19:59 03/31/20 10:39 Albuterol Sulfate (*Sp) Aerosol 1 Puff INHALATION 2 puff Q6H PRN Administration Shortness Of Breath Or Wheezing Atorvastatin Calcium 10 mg 03/30/20 09:00 04/01/20 09:00 Atorvastatin 10 Mg Tablet PO 10 mg DAILY SHAZIA Administration Calcitriol 0.5 mcg 03/30/20 09:00 04/01/20 09:00 Calcitriol 0.25 Mcg Capsule PO 04/29/20 09:01 0.5 mcg DAILY SHAZIA Administration Chlordiazepoxide HCl 25 mg 03/29/20 18:00 04/01/20 12:50 Chlordiazepoxide (*Crx) 25 Mg Capsule PO 25 mg Q6HR SHAZIA Administration Docusate Sodium 100 mg 04/01/20 12:04 04/01/20 15:09 Docusate Sodium 100 Mg Capsule PO 100 mg Q12H PRN Administration Constipation Famotidine 20 mg 03/29/20 21:00 04/01/20 08:59 Famotidine 20 Mg/2 Ml Vial IV PUSH 20 mg Q12HR SHAZIA Administration Ferrous Sulfate 324 mg 03/30/20 08:00 04/01/20 08:59 Ferrous Sulfate 324 Mg Tablet PO 324 mg DAILY@0800 SHAZIA Administration Fluticasone Propionate 2 spray 03/29/20 21:00 03/31/20 20:54 Fluticasone Propionate 0.05% Na Spr 16 Gm Btl (*Bkc) NASAL 2 spray HS SHAZIA Administration Folic Acid 1 mg 03/30/20 09:00 04/01/20 09:00 Folic Acid 1 Mg Tablet PO 1 mg DAILY SHAZIA Administration Heparin Sodium (Porcine) 500 units 03/30/20 07:33 03/31/20 13:00 Heparin Sod F
--- NOTE | 2020-04-01 15:46 | PM.IMPN ---
Progress Note: A&P Assessment and Plan (1) Sepsis: Code(s): A41.9 - Sepsis, unspecified organism Status: Acute Assessment and Plan: 04/01/20 15:46 patient had been on Bactrim and Pyridium for UTI. I resume the vancomycin. The patient had 2 blood cultures at [facility] on 1 did not have enough blood the other 1 had Gram-positive cocci in clusters. Which could be a contaminant. I did speak with Dr. Burris the surgeon here at [facility]. he stated that he would see the patient if we felt there was an infection in the Port-A-Cath. There is no signs and symptoms of any infection in the Port-A-Cath. We did recheck blood cultures. Recheck his urine. Patient does not appear to be septic. Recheck lactic. His lactic was coming back down to normal. 03/30/20 16:51 Patient is 59-year-old male with history of esophageal cancer he initially patient was admitted with [facility] and blood culture were positive coagulase negative staph aureus and patient was transferred to the [facility] concerning the patient's chemotherapy port may be infected, patient was seen by Dr. river suspect the chemotherapy port is infected and may need to be removed, patient is on vancomycin, seen by surgery service and further recommendation to follow, his clinically stable denies any fever or chills will continue to monitor. 03/31 today patient was seen by Dr. river recommending to continue vancomycin repeat blood culture, suspect port a source of infection but remained until further evaluation, patient also had a complaint abdominal pain was seen by surgery team CT scan was evaluated does not suspect patient has appendicitis patient is started on Zosyn, will monitor white count or if there is any fever further recommendation to follow, patient was seen prn occupational therapist oncologist recommending CT scan of the chest to further evaluate radiation therapy, patient may need chemotherapy in near future, will continue to monitor and further recommendation to follow. 04/01 patient still complains of abdominal pain discussed with Dr. Burris does not suspect appendicitis will continue to monitor 1 more day and continue zosyn 3/4 , seen by Dr. River suspect infected port, does not recommend to remove, 4 sets blood culture drawn on 03/29 still no growth, today patient appears hallucinating, is on CIWA protocol with Librium, his blood pressure is elevated his heart rate is elevated and abdominal pain is also persist, I have increased patient metoprolol to 50 mg b.i.d. from 25 mg b.i.d., will start the patient on IV hydration, will start the patient stool softner, will have a PT OT evaluate the pain and further recommendation to follow (2) ETOHism: Code(s): F10.20 - Alcohol dependence, uncomplicated Status: Acute Assessment and Plan: The patient does have a history of alcoholism. The patient drink last about 3 days ago. Will continue with the C wall and will continue with scheduled Librium folic acid thiamin. I am wondering if his lactic acid was elevated due to his alcoholism. (3) Anemia: Qualifiers: Anemia type: unspecified type Qualified Code(s): D64.9 - Anemia, unspecified Code(s): D64.9 - Anemia, unspecified Status: Acute Assessment and Plan: Continue to check his H&H. It did drop some it had been 9.2 on 03/28 and dropped down to 8.8 today. Will check his stool. The patient stated that he always has dark stools because he is on iron. (4) Squamous cell carcinoma of esophagus: Code(s): C15.9 - Malignant neoplasm of esophagus, unspecified Status: Acute Assessment and Plan: I did consult Dr. duncan did the patient states that he is taken half of his radiation treatments and needs to take the other half yet. The patient stated that he refused to take chemotherapy. He would like his Port-A-Cath removed. However explained that it does not look like it is infected
[2020-04-01] MEDS: LORazepam INJ (*CRX) 2 MG/ML VIAL 0.5 MG IV PUSH (19:21)
[2020-04-01] MEDS: METOPROLOL TARTRATE 50 MG TAB PO (19:22)
[2020-04-01] MEDS: FLUTICASONE PROPIONATE 0.05% NA SPR 16 GM BTL (*BKC) 2 SPRAY NASAL (19:23)
[2020-04-01] MEDS: MELATONIN 5 MG TABLET PO (19:25)
[2020-04-02] VITALS (11 sets, daily range): BP systolic 98–156; BP diastolic 63–96; PULSE 71–101; RESP 15–20; TEMP 36.4–36.8; O2SAT 98–100
[2020-04-02 04:40] LABS: IFOB Positive Control Positive; Immunochemical Fecal Occult Bl Positive (N)
[2020-04-02] MEDS: chlordiazePOXIDE (*CRX) 25 MG CAPSULE PO ×3 (05:51→23:09)
[2020-04-02] MEDS: CENTRAL LINE FLUSH 10 ML IV PUSH ×3 (05:51→20:42)
[2020-04-02] MEDS: LEVOTHYROXINE SODIUM 25 MCG TABLET PO (05:51)
[2020-04-02 06:14] LABS: Basophils Percent Auto 0.2 % (0.2-1.2); Eosinophils Percent Auto 0.4 % (0-4.4); Hematocrit 33.6 % (42.0-52.0); Hemoglobin 11.2 g/dL (14.0-18.0); Immature Granulocyte Absolute 0.11 K/mm3 (0.00-0.031); Immature Granulocyte Percent A 1.1 % (0-0.5); Lymphocytes Absolute Auto 0.77 K/mm3 (0.9-3.2); Lymphocytes Percent Auto 7.9 % (18.3-44.2); Mean Corpuscular HGB Conc 33.3 g/dl (32-36); Mean Corpuscular Hemoglobin 29.5 pg (26-34); Mean Corpuscular Volume 88.4 fl (80-100); Mean Platelet Volume 10.2 fl (7.4-10.4); Monocytes Absolute Auto 1.8 K/mm3 (0.1-0.6); Monocytes Percent Auto 18.3 % (2.6-8.5); Neutrophils Percent Auto 72.1 % (45.5-73.1); Platelet Count Result 182 k/mm3 (150-375); Red Cell Distribution Width 16.6 % (11.5-14.5); White Blood Count 9.8 K/mm3 (4.5-10.0)
[2020-04-02 06:34] LABS: Alanine Aminotransferase 13 U/L (4-50); Albumin Level 2.6 g/dL (3.5-5.1); Alkaline Phosphatase 61 U/L (38-126); Anion Gap 0 mmol/L (8-16); Aspartate Amino Transferase 25 U/L (17-59); Bilirubin,Total 0.6 mg/dL (0.2-1.3); Blood Urea Nitrogen 11 mg/dL (9-20); Calcium 8.2 mg/dL (8.4-10.2); Carbon Dioxide 24 mmol/L (22-30); Chloride 107 mmol/L (98-107); Estimated CRCL calculation 85 ml/min; Estimated Glomerular Filt Rate > 60; Glucose 109 mg/dL (75-110); Potassium 3.6 mmol/L (3.4-5.0); Sodium 131 mmol/L (137-145)
[2020-04-02] MEDS: FERROUS SULFATE 324 MG TABLET PO (09:24)
[2020-04-02] MEDS: calcitrioL 0.25 MCG CAPSULE 0.5 MCG PO (09:24)
[2020-04-02] MEDS: METOPROLOL TARTRATE 50 MG TAB PO ×2 (09:24→20:42)
[2020-04-02] MEDS: FOLIC ACID 1 MG TABLET PO (09:25)
[2020-04-02] MEDS: MAGNESIUM OXIDE 400 MG TABLET PO (09:25)
[2020-04-02] MEDS: THIAMINE HCL 100 MG TABLET PO (09:25)
[2020-04-02] MEDS: HYDROcodone/acetaminophen (*CRX) 7.5-325 MG TABLET 1 TAB PO (09:25)
[2020-04-02] MEDS: ATORVASTATIN 10 MG TABLET PO (09:25)
[2020-04-02 10:12] LABS: Magnesium 1.6 mg/dL (1.6-2.3)
[2020-04-02] MEDS: PANTOPRAZOLE SODIUM IV 40 MG VIAL IV PUSH (11:30)
[2020-04-02] MEDS: SODIUM CHLORIDE 0.9% IV 1,000 ML 100 ML IV CONT (13:31)
--- NOTE | 2020-04-02 13:41 | PM.PNGS ---
Progress Note: A&P Assessment and Plan (1) Hyperplasia, appendix: Onset Date: ~03/30/20 Code(s): K38.0 - Hyperplasia of appendix Status: Acute Assessment and Plan: The CT scan done on 03/30 because the patient was occasionally complaining of abdominal pain revealed a dilated appendix without surrounding inflammatory changes. I reviewed the CT scan with Dr. Blood in radiology the day after the scan. We also reviewed the CT done in October of 2019 and the appendix was 9 mm in size at that time and 10 mm on 03/30/20. He believes that there is some fatty infiltration of the appendix without obvious signs of appendicitis. For now will probably continue Zosyn for another day as per Dr. Kahn's rcommendations and then see how the patient does with his abdominal pain and a repeat his white count ( still normal today) and consider stopping it while continuing the anti-Staph therapy depending on the blood cultures and Dr. River's recommendations. I doubt that he has true appendicitis. (2) Staph infection: Onset Date: ~03/26/20 Code(s): B95.8 - Unspecified staphylococcus as the cause of diseases classified elsewhere Status: Acute Assessment and Plan: Chest pain and this is the main reason for his admission. He has had 2 inital blood cultures from 03/26 which turned out positive for coagulase negative Staph. Is unclear whether this was drawn from his port or peripherally, However now that both of turned positive it seems at least 1 of them was drawn from his port.. Right now we are waiting on repeat blood cultures. (3) Blood bacterial culture positive: Code(s): R78.81 - Bacteremia Status: Acute (4) Hypothyroidism: Code(s): E03.9 - Hypothyroidism, unspecified Status: Chronic (5) Port-A-Cath in place: Code(s): Z95.828 - Presence of other vascular implants and grafts Status: Acute Assessment and Plan: For now we are planning to try to save the Port-A-Cath. Will await Dr. River's disposition and recommendations regarding this. Further blood cultures are pending and preliminarily are negative. 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 Encouraged dietary supplements and attempts at eating better. Continue IV fluids in view of patient's poor appetite. Subjective Subjective Date/Time Seen: 04/02/20 11:41 Patient seen while lying in bed. Nurse reports that he has been somewhat confused today. However, patient did know that it was Saturday. He thought it was April however. He also did not know that he was in [facility]. He thought he was in a hospital in [employer]. This is definitely a change compared to yesterday when he seemed very lucid. Review of Systems Constitutional: Constitutional: Reports as per HPI, Reports no additional constitutional complaints, Denies chills, Denies fatigue and Denies headache(s) Eyes: Eyes: Reports no additional eye complaints, Denies change in vision, Denies diplopia and Denies loss of vision ENT: Denies dysphagia, Denies dizziness, Denies headache(s) and Reports other (Mucous Membranes moist.) Cardiova
--- NOTE | 2020-04-02 15:02 | PM.IMPN ---
Progress Note: A&P Assessment and Plan (1) Sepsis: Code(s): A41.9 - Sepsis, unspecified organism Status: Acute Assessment and Plan: 04/02/20 15:02 patient had been on Bactrim and Pyridium for UTI. I resume the vancomycin. The patient had 2 blood cultures at [facility] on 1 did not have enough blood the other 1 had Gram-positive cocci in clusters. Which could be a contaminant. I did speak with Dr. Burris the surgeon here at [facility]. he stated that he would see the patient if we felt there was an infection in the Port-A-Cath. There is no signs and symptoms of any infection in the Port-A-Cath. We did recheck blood cultures. Recheck his urine. Patient does not appear to be septic. Recheck lactic. His lactic was coming back down to normal. 03/30/20 16:51 Patient is 59-year-old male with history of esophageal cancer he initially patient was admitted with [facility] and blood culture were positive coagulase negative staph aureus and patient was transferred to the [facility] concerning the patient's chemotherapy port may be infected, patient was seen by Dr. river suspect the chemotherapy port is infected and may need to be removed, patient is on vancomycin, seen by surgery service and further recommendation to follow, his clinically stable denies any fever or chills will continue to monitor. 03/31 today patient was seen by Dr. river recommending to continue vancomycin repeat blood culture, suspect port a source of infection but remained until further evaluation, patient also had a complaint abdominal pain was seen by surgery team CT scan was evaluated does not suspect patient has appendicitis patient is started on Zosyn, will monitor white count or if there is any fever further recommendation to follow, patient was seen orientor oncologist recommending CT scan of the chest to further evaluate radiation therapy, patient may need chemotherapy in near future, will continue to monitor and further recommendation to follow. 04/01 patient still complains of abdominal pain discussed with Dr. Burris does not suspect appendicitis will continue to monitor 1 more day and continue zosyn 3/4 , seen by Dr. River suspect infected port, does not recommend to remove, 4 sets blood culture drawn on 03/29 still no growth, today patient appears hallucinating, is on CIWA protocol with Librium, his blood pressure is elevated his heart rate is elevated and abdominal pain is also persist, I have increased patient metoprolol to 50 mg b.i.d. from 25 mg b.i.d., will start the patient on IV hydration, will start the patient stool softner, will have a PT OT evaluate the pain and further recommendation to follow 04/02 today patient is quite somnolent is still complains abdominal pain he did have a BM today, patient was seen by Dr. Burris does not suspect patient has a true appendicitis, will continue Zosyn 1 more day, patient is seen by Dr. river suspect the port is infected and blood culture collected on 03/26 a growing coagulase-negative Staphylococcus aureus patient on vancomycin will continue, for sets of blood culture collected on 03/29 still no growth, patient with history of alcohol abuse is out of DT risk as he has been in hospital for more than a week will taper Librium 25 mg 2 b.i.d. from q6 S patient is getting more somnolent. Will continue to monitor and further recommendation to follow (2) ETOHism: Code(s): F10.20 - Alcohol dependence, uncomplicated Status: Acute Assessment and Plan: The patient does have a history of alcoholism. The patient drink last about 3 days ago. Will continue with the C wall and will continue with scheduled Librium folic acid thiamin. I am wondering if his lactic acid was elevated due to his alcoholism. (3) Anemia: Qualifiers: Anemia type: unspecified type Qualified Code(s): D64.9 - Anemia, unspecified Code(s): D64.9 - Anemia, unspecified
[2020-04-02] MEDS: MELATONIN 5 MG TABLET PO (20:42)
[2020-04-02] MEDS: traZODone HCL 50 MG TABLET 100 MG PO (20:42)
[2020-04-02] MEDS: FLUTICASONE PROPIONATE 0.05% NA SPR 16 GM BTL (*BKC) 2 SPRAY NASAL (20:43)
[2020-04-03] VITALS (12 sets, daily range): BP systolic 121–158; BP diastolic 72–92; PULSE 71–87; RESP 16–22; TEMP 36.2–36.7; O2SAT 98–100
[2020-04-03] MEDS: SODIUM CHLORIDE 0.9% IV 1,000 ML 100 ML IV CONT ×2 (00:58→13:10)
[2020-04-03] MEDS: chlordiazePOXIDE (*CRX) 25 MG CAPSULE PO (05:18)
[2020-04-03] MEDS: LEVOTHYROXINE SODIUM 25 MCG TABLET PO (05:18)
[2020-04-03] MEDS: CENTRAL LINE FLUSH 10 ML IV PUSH ×3 (05:18→20:31)
[2020-04-03 06:05] LABS: Basophils Percent Auto 0.3 % (0.2-1.2); Eosinophils Absolute Auto 0.3 K/mm3 (0-0.3); Eosinophils Percent Auto 4.1 % (0-4.4); Hematocrit 31.4 % (42.0-52.0); Hemoglobin 10.2 g/dL (14.0-18.0); Immature Granulocyte Absolute 0.04 K/mm3 (0.00-0.031); Immature Granulocyte Percent A 0.6 % (0-0.5); Lymphocytes Absolute Auto 0.74 K/mm3 (0.9-3.2); Lymphocytes Percent Auto 10.9 % (18.3-44.2); Mean Corpuscular HGB Conc 32.5 g/dl (32-36); Mean Corpuscular Hemoglobin 29.2 pg (26-34); Mean Platelet Volume 9.7 fl (7.4-10.4); Monocytes Absolute Auto 1.6 K/mm3 (0.1-0.6); Monocytes Percent Auto 22.8 % (2.6-8.5); Neutrophils Absolute Auto 4.2 K/mm3 (1.3-6.7); Neutrophils Percent Auto 61.3 % (45.5-73.1); Platelet Count Result 230 k/mm3 (150-375); Red Blood Count 3.49 M/mm3 (4.6-6.20); Red Cell Distribution Width 17.2 % (11.5-14.5); White Blood Count 6.8 K/mm3 (4.5-10.0)
[2020-04-03 06:16] LABS: Alanine Aminotransferase 11 U/L (4-50); Albumin Level 2.4 g/dL (3.5-5.1); Alkaline Phosphatase 60 U/L (38-126); Anion Gap 0 mmol/L (8-16); Aspartate Amino Transferase 20 U/L (17-59); Bilirubin,Total 0.5 mg/dL (0.2-1.3); Blood Urea Nitrogen 11 mg/dL (9-20); Calcium 8.5 mg/dL (8.4-10.2); Carbon Dioxide 23 mmol/L (22-30); Chloride 110 mmol/L (98-107); Estimated CRCL calculation 63 ml/min; Estimated Glomerular Filt Rate > 60; Glucose 102 mg/dL (75-110); Magnesium 1.6 mg/dL (1.6-2.3); Potassium 3.4 mmol/L (3.4-5.0); Sodium 133 mmol/L (137-145)
[2020-04-03] MEDS: FERROUS SULFATE 324 MG TABLET PO (08:37)
[2020-04-03] MEDS: THIAMINE HCL 100 MG TABLET PO (08:37)
[2020-04-03] MEDS: FOLIC ACID 1 MG TABLET PO (08:37)
[2020-04-03] MEDS: POTASSIUM CHLORIDE 20 MEQ TABLET 40 MEQ PO (08:37)
[2020-04-03] MEDS: METOPROLOL TARTRATE 50 MG TAB PO ×2 (08:37→20:31)
[2020-04-03] MEDS: ATORVASTATIN 10 MG TABLET PO (08:37)
[2020-04-03] MEDS: PANTOPRAZOLE SODIUM IV 40 MG VIAL IV PUSH (08:37)
[2020-04-03] MEDS: calcitrioL 0.25 MCG CAPSULE 0.5 MCG PO (08:37)
[2020-04-03] MEDS: MAGNESIUM OXIDE 400 MG TABLET PO (08:38)
[2020-04-03] MEDS: HYDROcodone/acetaminophen (*CRX) 7.5-325 MG TABLET 1 TAB PO (08:38)
--- NOTE | 2020-04-03 13:37 | PM.IMPN ---
Progress Note: A&P Assessment and Plan (1) Sepsis: Code(s): A41.9 - Sepsis, unspecified organism Status: Acute Assessment and Plan: 04/03/20 13:37 patient had been on Bactrim and Pyridium for UTI. I resume the vancomycin. The patient had 2 blood cultures at [facility] on 1 did not have enough blood the other 1 had Gram-positive cocci in clusters. Which could be a contaminant. I did speak with Dr. Burris the surgeon here at [facility]. he stated that he would see the patient if we felt there was an infection in the Port-A-Cath. There is no signs and symptoms of any infection in the Port-A-Cath. We did recheck blood cultures. Recheck his urine. Patient does not appear to be septic. Recheck lactic. His lactic was coming back down to normal. 03/30/20 16:51 Patient is 59-year-old male with history of esophageal cancer he initially patient was admitted with [facility] and blood culture were positive coagulase negative staph aureus and patient was transferred to the [facility] concerning the patient's chemotherapy port may be infected, patient was seen by Dr. river suspect the chemotherapy port is infected and may need to be removed, patient is on vancomycin, seen by surgery service and further recommendation to follow, his clinically stable denies any fever or chills will continue to monitor. 03/31 today patient was seen by Dr. river recommending to continue vancomycin repeat blood culture, suspect port a source of infection but remained until further evaluation, patient also had a complaint abdominal pain was seen by surgery team CT scan was evaluated does not suspect patient has appendicitis patient is started on Zosyn, will monitor white count or if there is any fever further recommendation to follow, patient was seen comptroller oncologist recommending CT scan of the chest to further evaluate radiation therapy, patient may need chemotherapy in near future, will continue to monitor and further recommendation to follow. 04/01 patient still complains of abdominal pain discussed with Dr. Burris does not suspect appendicitis will continue to monitor 1 more day and continue zosyn 3/4 , seen by Dr. River suspect infected port, does not recommend to remove, 4 sets blood culture drawn on 03/29 still no growth, today patient appears hallucinating, is on CIWA protocol with Librium, his blood pressure is elevated his heart rate is elevated and abdominal pain is also persist, I have increased patient metoprolol to 50 mg b.i.d. from 25 mg b.i.d., will start the patient on IV hydration, will start the patient stool softner, will have a PT OT evaluate the pain and further recommendation to follow 04/02 today patient is quite somnolent is still complains abdominal pain he did have a BM today, patient was seen by Dr. Burris does not suspect patient has a true appendicitis, will continue Zosyn 1 more day, patient is seen by Dr. river suspect the port is infected and blood culture collected on 03/26 a growing coagulase-negative Staphylococcus aureus patient on vancomycin will continue, for sets of blood culture collected on 03/29 still no growth, patient with history of alcohol abuse is out of DT risk as he has been in hospital for more than a week will taper Librium 25 mg 2 b.i.d. from q6 S patient is getting more somnolent. Will continue to monitor and further recommendation to follow. 04/03 today patient is little more awake, abdominal pain is better, trying to eat his breakfast, we have tapered patient's Librium 25 mg b.i.d. from Q6 as patient was getting more somnolent and he is out of DT risk, discussed with Dr. Burris does not suspect patient has a true appendicitis and will stop the Zosyn after patient completes 4 days of antibiotic, so far there is no growth in blood culture collected on 03/29 awaiting further recommendation from Dr. River, though suspected port is infected most likely it may not have to be removed
--- NOTE | 2020-04-03 16:54 | PM.PNGS ---
Progress Note: A&P Assessment and Plan (1) Hyperplasia, appendix: Onset Date: ~03/30/20 Code(s): K38.0 - Hyperplasia of appendix Status: Acute Assessment and Plan: The CT scan done on 03/30 because the patient was occasionally complaining of abdominal pain revealed a dilated appendix without surrounding inflammatory changes. I reviewed the CT scan with Dr. Blood in radiology the day after the scan. We also reviewed the CT done in October of 2019 and the appendix was 9 mm in size at that time and 10 mm on 03/30/20. He believes that there is some fatty infiltration of the appendix without obvious signs of appendicitis. For now will probably continue Zosyn for another day as per Dr. River's recommendations and then see how the patient does with his abdominal pain and a repeat his white count (still normal today) and consider stopping it while continuing the anti-Staph therapy depending on the blood cultures and Dr. River's recommendations tomorrow. I doubt that he has true appendicitis. (2) Staph infection: Onset Date: ~03/26/20 Code(s): B95.8 - Unspecified staphylococcus as the cause of diseases classified elsewhere Status: Acute Assessment and Plan: Chest pain and this is the main reason for his admission. He has had 2 inital blood cultures from 03/26 which turned out positive for coagulase negative Staph. Is unclear whether this was drawn from his port or peripherally, However now that both of turned positive it seems at least 1 of them was drawn from his port. Right now we are waiting on repeat blood cultures. (3) Blood bacterial culture positive: Code(s): R78.81 - Bacteremia Status: Acute (4) Hypothyroidism: Code(s): E03.9 - Hypothyroidism, unspecified Status: Chronic (5) Port-A-Cath in place: Code(s): Z95.828 - Presence of other vascular implants and grafts Status: Acute Assessment and Plan: For now we are planning to try to save the Port-A-Cath. Will await Dr. River's disposition and recommendations regarding this. Further blood cultures are pending and preliminarily are negative. 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 However these are on hold well we check out the possibility of infection of the Port-A-Cath. (8) ETOHism: Code(s): F10.20 - Alcohol dependence, uncomplicated Status: Acute Assessment and Plan: Patient has been on a protocol but with his sedation Dr. Salinas is cutting back on his Librium today. (9) Alcohol abuse: Code(s): F10.10 - Alcohol abuse, uncomplicated Status: Acute (10) Hypertension: Code(s): I10 - Essential (primary) hypertension Status: Acute Assessment and Plan: Controlled with medications but running on the high side. (11) CAD (coronary atherosclerotic disease): Onset Date: Unknown Code(s): I25.10 - Atherosclerotic heart disease of [place] coronary artery without angina pectoris Status: Acute Assessment and Plan: No recent chest pain that is felt to be cardiac in nature. Current anterior chest pain may be related to his mid esophageal tumor. Additional Plan Encouraged the patient to get up and get out of bed. Encouraged dietary supplements and attempts at eating better. Continue IV fluids in view of patient's poor appetite. Subjective Subjective Date/Time Seen: 04/03/20 11:54 Patient is still somewhat somnolent but tolerating the liquids well. Main complaint of pain is across his mid chest, however he does say when asked that he has a little bit of pain across his mid
[2020-04-03] MEDS: FLUTICASONE PROPIONATE 0.05% NA SPR 16 GM BTL (*BKC) 2 SPRAY NASAL (20:31)
[2020-04-04] VITALS (11 sets, daily range): BP systolic 121–179; BP diastolic 54–95; PULSE 77–103; RESP 17–20; TEMP 36.3–36.8; O2SAT 98–100
[2020-04-04] MEDS: SODIUM CHLORIDE 0.9% IV 1,000 ML 100 ML IV CONT ×3 (01:01→23:40)
[2020-04-04] MEDS: LEVOTHYROXINE SODIUM 25 MCG TABLET PO (06:00)
[2020-04-04] MEDS: CENTRAL LINE FLUSH 10 ML IV PUSH ×2 (06:00→08:58)
[2020-04-04 06:02] LABS: Hematocrit 29.3 % (42.0-52.0); Hemoglobin 9.7 g/dL (14.0-18.0); Mean Corpuscular HGB Conc 33.1 g/dl (32-36); Mean Corpuscular Hemoglobin 29.8 pg (26-34); Mean Corpuscular Volume 89.9 fl (80-100); Mean Platelet Volume 9.1 fl (7.4-10.4); Platelet Count Result 233 k/mm3 (150-375); Red Blood Count 3.26 M/mm3 (4.6-6.20); Red Cell Distribution Width 17.3 % (11.5-14.5); White Blood Count 7.8 K/mm3 (4.5-10.0)
[2020-04-04 06:14] LABS: Alanine Aminotransferase 10 U/L (4-50); Albumin Level 2.3 g/dL (3.5-5.1); Alkaline Phosphatase 55 U/L (38-126); Anion Gap 4 mmol/L (8-16); Aspartate Amino Transferase 18 U/L (17-59); Bilirubin,Total 0.4 mg/dL (0.2-1.3); Blood Urea Nitrogen 12 mg/dL (9-20); Calcium 8.7 mg/dL (8.4-10.2); Carbon Dioxide 22 mmol/L (22-30); Chloride 110 mmol/L (98-107); Estimated CRCL calculation 50 ml/min; Estimated Glomerular Filt Rate 52; Glucose 87 mg/dL (75-110); Magnesium 1.5 mg/dL (1.6-2.3); Potassium 3.5 mmol/L (3.4-5.0); Sodium 136 mmol/L (137-145)
[2020-04-04 06:20] LABS: Band Neutrophils Percent 7 % (0-6); Eosinophils Absolute Manual 0.31 K/mm3 (0.02-0.5); Eosinophils Percent Manual 4 % (0-4); Lymphocytes Absolute Manual 1.01 K/mm3 (1.1-4.5); Monocytes Absolute Manual 0.78 K/mm3 (0.1-0.90); Monocytes Percent Manual 10 % (3-9); Neutrophils Absolute Manual 5.69 K/mm3 (1.3-6.7); Neutrophils Percent Manual 66 % (46-73); Ovalocytes 1+ (NORMAL); Total Cells Counted 100
[2020-04-04 06:21] LABS: Hypochromasia 1+ (NORMAL); Macrocytosis 1+ (NORMAL); Platelet Estimate Adequate (Adequate)
[2020-04-04] MEDS: PANTOPRAZOLE SODIUM IV 40 MG VIAL IV PUSH (08:58)
[2020-04-04] MEDS: THIAMINE HCL 100 MG TABLET PO (08:58)
[2020-04-04] MEDS: FERROUS SULFATE 324 MG TABLET PO (08:58)
[2020-04-04] MEDS: FOLIC ACID 1 MG TABLET PO (08:58)
[2020-04-04] MEDS: METOPROLOL TARTRATE 50 MG TAB PO ×2 (08:59→20:07)
[2020-04-04] MEDS: ATORVASTATIN 10 MG TABLET PO (08:59)
[2020-04-04] MEDS: MAGNESIUM OXIDE 400 MG TABLET PO (08:59)
[2020-04-04] MEDS: calcitrioL 0.25 MCG CAPSULE 0.5 MCG PO (08:59)
[2020-04-04] MEDS: HYDROcodone/acetaminophen (*CRX) 7.5-325 MG TABLET 1 TAB PO (09:03)
[2020-04-04 09:18] LABS: Vancomycin Trough 30.4 ug/mL (10.0-20.0)
[2020-04-04] MEDS: POTASSIUM CHLORIDE 20 MEQ TABLET 40 MEQ PO (09:34)
[2020-04-04] MEDS: MAGNESIUM SULF 2 GM/WATER 50ML 2 GM/50 ML BAG IVPB (09:35)
[2020-04-04] MEDS: ENOXAPARIN 40 MG/0.4 ML SYRINGE SUB-Q (11:15)
--- NOTE | 2020-04-04 11:45 | PCPTNOTE ---
The patient treatment was not able to be completed on 04/04/20 due to increased lethargy. Attempted to see patient at 11:38 for PT treatment, however patient unable to stay awake. Will attempt to see patient in PM as appropriate. Will plan to continue treatment per plan of care. Tonya Delgado, BIOCHEMISTRY TEACHER
--- NOTE | 2020-04-04 14:16 | WPDINFPN2 ---
Progress Note: A&P Assessment and Plan (1) Blood bacterial culture positive: Code(s): R78.81 - Bacteremia Status: Acute Assessment and Plan: 1. CNSS bacteremia with infection, port source likely. Repeat 4 sets ng final 2. Esophageal cancer, locally advanced, on XRT 3. Chest pain 4. Appendicitis by CT, still quite tender. 5. Decreased LOC, metabolic vs drug. Doubt directly related to above infections REC Vanc #7, continue until AM. The port can remain in place for now. Also on PipTazo #6, check obstructive series. Subjective Date/time seen: 04/04/20 14:16 Interval history: lethargic throughout today Exam Narrative: Exam Narrative: afebrile Const: General: no acute distress Resp: Effort & Inspection: normal respiratory effort Auscultation: clear to auscultation bilaterally Cardio: Rate: regular rate Rhythm: regular rhythm Heart sounds: no murmurs GI: GI Palp: Yes Firmness to palpation present (GI), Yes Tenderness to palpation present (GI) and Yes Guarding due to palpation present (GI) Percussion: Yes normal to percussion Auscultation: abnormal bowel sounds Skin: General skin exam: no rashes or lesions noted Neuro: Cognition (Neuro): abnormal cognition Objective Data Vital Signs Vital Signs: Vital Signs - 24 hr 04/03/20 15:53 04/03/20 16:00 04/03/20 20:00 Temperature 36.7 C 36.3 C L Pulse Rate 73 71 84 Respiratory Rate 22 H 18 Blood Pressure 121/72 124/78 Pulse Oximetry 98 100 04/03/20 20:31 04/03/20 23:39 04/04/20 00:00 Temperature 36.3 C L Pulse Rate 82 77 80 Respiratory Rate 20 Blood Pressure 147/80 H Pulse Oximetry 98 04/04/20 03:56 04/04/20 04:00 04/04/20 08:00 Temperature 36.6 C 36.6 C Pulse Rate 82 80 78 Respiratory Rate 20 19 Blood Pressure 164/92 H 138/85 Pulse Oximetry 98 99 04/04/20 08:59 04/04/20 12:00 Temperature 36.3 C L Pulse Rate 103 H 78 Respiratory Rate 19 Blood Pressure 121/62 Pulse Oximetry 99 Intake/Output Intake/Output: Intake & Output 04/01/20 04/02/20 04/03/20 01/25/21 23:59 23:59 23:59 23:59 Intake Total 2270 3410 4020 1764 Output Total 575 Balance 1695 3410 4020 1764 Meds/Results Medications: Active Medications Generic Name Dose Route Start Last Admin Trade Name Freq PRN Reason Stop Dose Admin Hydrocodone Bitart/Acetaminophen 1 tab 03/31/20 11:29 04/01/20 00:16 Hydrocodone/Acetaminophen (*Crx) 5-325 Mg Tablet PO 1 tab Q6H PRN Administration Pain Rated 4-6 Hydrocodone Bitart/Acetaminophen 1 tab 03/31/20 11:29 04/04/20 09:03 Hydrocodone/Acetaminophen (*Crx) 7.5-325 Mg Tablet PO 1 tab Q6H PRN Administration Pain Rated 7-10 Albuterol 2 puff 03/29/20 19:59 03/31/20 10:39 Albuterol Sulfate (*Sp) Aerosol 1 Puff INHALATION 2 puff Q6H PRN Administration Shortness Of Breath Or Wheezing Atorvastatin Calcium 10 mg 03/30/20 09:00 04/04/20 08:59 Atorvastatin 10 Mg Tablet PO 10 mg DAILY SHAZIA Administration Calcitriol 0.5 mcg 03/30/20 09:00 04/04/20 08:59 Calcitriol 0.25 Mcg Capsule PO 04/29/20 09:01 0.5 mcg DAILY SHAZIA Administration Chlordiazepoxide HCl 25 mg 04/03/20 17:00 Chlordiazepoxide (*Crx) 25 Mg Capsule PO Q12H PRN Anxiety Docusate Sodium 100 mg 04/01/20 12:04 04/01/20 15:09 Docusate Sodium 100 Mg Capsule PO 100 mg Q12H PRN Administration Constipation Enoxaparin Sodium 40 mg 04/04/20 10:25 04/04/20 11:15 Enoxaparin 40 Mg/0.4 Ml Syringe SUB-Q 40 mg DAILY SHAZIA Administration Ferrous Sulfate 324 mg 03/30/20 08:00 04/04/20 08:58 Ferrous Sulfate 324 Mg Tablet PO 324 mg DAILY@0800 SHAZIA Administration Fluticasone Propionate 2 spray 03/29/20 21:00 04/03/20 20:31 Fluticasone Propionate 0.05% Na Spr 16 Gm Btl (*Bkc) NASAL 2 spray HS SHAZIA Administration Folic Acid 1 mg 03/30/20 09:00 04/04/20 08:58 Folic Acid 1 Mg Tablet PO 1 mg DAILY SHAZIA Administration Heparin Sod
--- NOTE | 2020-04-04 15:10 | PCPTNOTE ---
Patient refused treatment this session due to fatigue. Attempted to see patient at 15:05 for PT, however patient states that he is too tired. Patient unable to stay awake at this time despite moderate cues. Therapy will attempt to see patient tomorrow as appropriate. Tonya Delgado, PHYSICAL THERAPIST AIDE
--- NOTE | 2020-04-04 15:58 | PM.IMPN ---
Progress Note: A&P Assessment and Plan (1) Sepsis: Code(s): A41.9 - Sepsis, unspecified organism Status: Acute Assessment and Plan: 04/04/20 15:58 patient had been on Bactrim and Pyridium for UTI. I resume the vancomycin. The patient had 2 blood cultures at [facility] on 1 did not have enough blood the other 1 had Gram-positive cocci in clusters. Which could be a contaminant. I did speak with Dr. Burris the surgeon here at [facility]. he stated that he would see the patient if we felt there was an infection in the Port-A-Cath. There is no signs and symptoms of any infection in the Port-A-Cath. We did recheck blood cultures. Recheck his urine. Patient does not appear to be septic. Recheck lactic. His lactic was coming back down to normal. 03/30/20 16:51 Patient is 59-year-old male with history of esophageal cancer he initially patient was admitted with [facility] and blood culture were positive coagulase negative staph aureus and patient was transferred to the [facility] concerning the patient's chemotherapy port may be infected, patient was seen by Dr. river suspect the chemotherapy port is infected and may need to be removed, patient is on vancomycin, seen by surgery service and further recommendation to follow, his clinically stable denies any fever or chills will continue to monitor. 03/31 today patient was seen by Dr. river recommending to continue vancomycin repeat blood culture, suspect port a source of infection but remained until further evaluation, patient also had a complaint abdominal pain was seen by surgery team CT scan was evaluated does not suspect patient has appendicitis patient is started on Zosyn, will monitor white count or if there is any fever further recommendation to follow, patient was seen hamper maker oncologist recommending CT scan of the chest to further evaluate radiation therapy, patient may need chemotherapy in near future, will continue to monitor and further recommendation to follow. 04/01 patient still complains of abdominal pain discussed with Dr. Burris does not suspect appendicitis will continue to monitor 1 more day and continue zosyn 3/4 , seen by Dr. River suspect infected port, does not recommend to remove, 4 sets blood culture drawn on 03/29 still no growth, today patient appears hallucinating, is on CIWA protocol with Librium, his blood pressure is elevated his heart rate is elevated and abdominal pain is also persist, I have increased patient metoprolol to 50 mg b.i.d. from 25 mg b.i.d., will start the patient on IV hydration, will start the patient stool softner, will have a PT OT evaluate the pain and further recommendation to follow 04/02 today patient is quite somnolent is still complains abdominal pain he did have a BM today, patient was seen by Dr. Burris does not suspect patient has a true appendicitis, will continue Zosyn 1 more day, patient is seen by Dr. river suspect the port is infected and blood culture collected on 03/26 a growing coagulase-negative Staphylococcus aureus patient on vancomycin will continue, for sets of blood culture collected on 03/29 still no growth, patient with history of alcohol abuse is out of DT risk as he has been in hospital for more than a week will taper Librium 25 mg 2 b.i.d. from q6 S patient is getting more somnolent. Will continue to monitor and further recommendation to follow. 04/03 today patient is little more awake, abdominal pain is better, trying to eat his breakfast, we have tapered patient's Librium 25 mg b.i.d. from Q6 as patient was getting more somnolent and he is out of DT risk, discussed with Dr. Burris does not suspect patient has a true appendicitis and will stop the Zosyn after patient completes 4 days of antibiotic, so far there is no growth in blood culture collected on 03/29 awaiting further recommendation from Dr. River, though suspected port is infected most likely it may not have to be removed
--- NOTE | 2020-04-04 16:10 | PM.PNGS ---
Progress Note: A&P Assessment and Plan (1) Hyperplasia, appendix: Onset Date: ~03/30/20 Code(s): K38.0 - Hyperplasia of appendix Status: Acute Assessment and Plan: CT scan done on 03/30 because of intermittent chronic abdominal pain, which revealed a dilated appendix without surrounding inflammatory changes. Clinically, his exam does not correlate with acute appendicitis, although IV Zosyn was added for coverage for this. Would recommend antibiotic treatment per ID, would be okay with trying to stop this from our standpoint. Abdominal films were also ordered by ID today, which showed no evidence of free air or dilated loops of bowel to suggest obstruction. (2) Staph infection: Onset Date: ~03/26/20 Code(s): B95.8 - Unspecified staphylococcus as the cause of diseases classified elsewhere Status: Acute Assessment and Plan: Blood cx on 03/26/20 positive for coag negative staph. Blood cx repeated on 03/29/20 and pending, NGTD. ID following, continue IV abx per ID recommendations. His port is considered a likely source for this. ID recommends to treat with antibiotics and okay to keep the port in place for now. We are following along if it is felt the port needs to be removed. (3) Blood bacterial culture positive: Code(s): R78.81 - Bacteremia Status: Acute (4) Hypothyroidism: Code(s): E03.9 - Hypothyroidism, unspecified Status: Chronic (5) Port-A-Cath in place: Code(s): Z95.828 - Presence of other vascular implants and grafts Status: Acute Assessment and Plan: See plan above regarding the positive blood cultures and port plan. 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 Santana. Radiation treatments on hold during his acute infection. (8) ETOHism: Code(s): F10.20 - Alcohol dependence, uncomplicated Status: Acute Assessment and Plan: Has been receiving Librium for alcohol withdrawl symptoms. Patient very lethargic today. Management per Hospitalist. (9) Alcohol abuse: Code(s): F10.10 - Alcohol abuse, uncomplicated Status: Acute (10) Hypertension: Code(s): I10 - Essential (primary) hypertension Status: Acute Assessment and Plan: Management per Hospitalist. (11) CAD (coronary atherosclerotic disease): Onset Date: Unknown Code(s): I25.10 - Atherosclerotic heart disease of [place] coronary artery without angina pectoris Status: Acute Additional Plan Discussed plan of care with Dr. Burris today. Subjective Subjective Date/Time Seen: 04/04/20 12:10 Patient reports: no new complaints Interval history: Patient lethargic this morning and does open eyes and verbally respond to name, but is not able to stay awake more than a few minutes during our conversation. He denies any abdominal pain at this time. He does report tolerating a diet and finally eating a full tray today. Review of Systems Review of Systems: All systems reviewed & are unremarkable except as noted in HPI and below Constitutional: Constitutional: Reports as per HPI and Denies chills Exam Const: General: no acute distress Orientation/consciousness: oriented to person and oriented to time Chest: Other: Right chest port accessed for IV use GI: Inspection: normal to inspection and non-distended GI Palp: Yes Soft to palpation, Yes Tenderness to palpation present (GI) (diffusely tender), No Guarding due to palpation present (GI) and No Rebound tenderness present Auscultation: normal bowel sounds Neuro: General: moves all extremities and no focal motor deficits Extrem: General: no clubbing, cyanosis or edema Psych: Insight
[2020-04-04] MEDS: FLUTICASONE PROPIONATE 0.05% NA SPR 16 GM BTL (*BKC) 2 SPRAY NASAL (20:07)
[2020-04-05] VITALS (10 sets, daily range): BP systolic 146–191; BP diastolic 82–103; PULSE 79–99; RESP 15–22; TEMP 36.1–37.3; O2SAT 95–100
[2020-04-05] MEDS: LEVOTHYROXINE SODIUM 25 MCG TABLET PO (05:15)
[2020-04-05] MEDS: CENTRAL LINE FLUSH 10 ML IV PUSH ×2 (05:15→13:34)
[2020-04-05 05:42] LABS: Basophils Percent Auto 0.3 % (0.2-1.2); Eosinophils Absolute Auto 0.1 K/mm3 (0-0.3); Eosinophils Percent Auto 1.8 % (0-4.4); Hematocrit 27.4 % (42.0-52.0); Hemoglobin 8.8 g/dL (14.0-18.0); Immature Granulocyte Absolute 0.02 K/mm3 (0.00-0.031); Immature Granulocyte Percent A 0.3 % (0-0.5); Lymphocytes Absolute Auto 0.74 K/mm3 (0.9-3.2); Lymphocytes Percent Auto 10.2 % (18.3-44.2); Mean Corpuscular HGB Conc 32.1 g/dl (32-36); Mean Corpuscular Hemoglobin 28.8 pg (26-34); Mean Corpuscular Volume 89.5 fl (80-100); Mean Platelet Volume 9.4 fl (7.4-10.4); Monocytes Absolute Auto 1.6 K/mm3 (0.1-0.6); Monocytes Percent Auto 21.4 % (2.6-8.5); Neutrophils Absolute Auto 4.8 K/mm3 (1.3-6.7); Platelet Count Result 266 k/mm3 (150-375); Red Blood Count 3.06 M/mm3 (4.6-6.20); Red Cell Distribution Width 17.5 % (11.5-14.5); White Blood Count 7.3 K/mm3 (4.5-10.0)
[2020-04-05 06:01] LABS: Alanine Aminotransferase 9 U/L (4-50); Albumin Level 2.4 g/dL (3.5-5.1); Alkaline Phosphatase 52 U/L (38-126); Anion Gap 3 mmol/L (8-16); Aspartate Amino Transferase 18 U/L (17-59); Bilirubin,Total 0.5 mg/dL (0.2-1.3); Blood Urea Nitrogen 14 mg/dL (9-20); Calcium 9.2 mg/dL (8.4-10.2); Carbon Dioxide 23 mmol/L (22-30); Chloride 114 mmol/L (98-107); Estimated CRCL calculation 44 ml/min; Estimated Glomerular Filt Rate 44; Glucose 83 mg/dL (75-110); Magnesium 1.7 mg/dL (1.6-2.3); Potassium 3.7 mmol/L (3.4-5.0); Sodium 140 mmol/L (137-145)
[2020-04-05] MEDS: POTASSIUM CHLORIDE 20 MEQ TABLET 40 MEQ (09:00)
[2020-04-05] MEDS: FERROUS SULFATE 324 MG TABLET PO (09:04)
[2020-04-05] MEDS: SODIUM CHLORIDE 0.9% IV 1,000 ML 100 ML IV CONT (09:05)
[2020-04-05] MEDS: calcitrioL 0.25 MCG CAPSULE 0.5 MCG PO (09:06)
[2020-04-05] MEDS: FOLIC ACID 1 MG TABLET PO (09:06)
[2020-04-05] MEDS: ATORVASTATIN 10 MG TABLET PO (09:06)
[2020-04-05] MEDS: POTASSIUM CHLORIDE 20 MEQ TABLET 40 MEQ PO (09:12)
[2020-04-05] MEDS: METOPROLOL TARTRATE 50 MG TAB PO ×3 (09:15→22:17)
[2020-04-05] MEDS: MAGNESIUM OXIDE 400 MG TABLET PO (09:15)
[2020-04-05] MEDS: THIAMINE HCL 100 MG TABLET PO (09:16)
[2020-04-05] MEDS: PANTOPRAZOLE SODIUM IV 40 MG VIAL IV PUSH (09:16)
[2020-04-05] MEDS: ENOXAPARIN 80 MG/0.8 ML SYRINGE 70 MG SUB-Q (09:28)
--- NOTE | 2020-04-05 10:47 | PM.PNGS ---
Progress Note: A&P Assessment and Plan (1) Hyperplasia, appendix: Onset Date: ~03/30/20 Code(s): K38.0 - Hyperplasia of appendix Status: Acute Assessment and Plan: CT scan done on 03/30 because of intermittent chronic abdominal pain, which revealed a dilated appendix without surrounding inflammatory changes. Clinically, his exam does not correlate with acute appendicitis other than some mild discomfort with palpation in the RLQ, although IV Zosyn was added for coverage for this. He has had this now for 7 days so would consider stopping it and see how he does. Would recommend antibiotic treatment per ID, would be okay with trying to stop this from our standpoint. Abdominal films were also ordered by ID yesterday and were unremarkable for any sign of bowel obstruction or other problem. If agreeable to ID would stop Zosyn today and watch for 24 hours. If pain in the abdomen worsened would repeat CT scan of the abdomen pelvis with contrast tomorrow if kidney function will allow, otherwise without contrast. If no worsening of his abdominal pain would simply hold off on the CT and monitor. (2) Staph infection: Onset Date: ~03/26/20 Code(s): B95.8 - Unspecified staphylococcus as the cause of diseases classified elsewhere Status: Acute Assessment and Plan: Blood cx on 03/26/20 positive for coag negative staph. Blood cx repeated on 03/29/20 X 4 NGTD and were finalized as negative yesterday. ID following, continue IV abx per ID recommendations. (? consider stopping now and following with new BC,s if he shows new signs of infection --- WBC nl today and has been for several days. His port is considered a likely source for this. ID recommends to treat with antibiotics and okay to keep the port in place for now. We are following along if it is felt the port needs to be removed. (3) Blood bacterial culture positive: Code(s): R78.81 - Bacteremia Status: Acute Assessment and Plan: May have been contaminated. Follow-up blood cultures are all negative. (4) Hypothyroidism: Code(s): E03.9 - Hypothyroidism, unspecified Status: Chronic Assessment and Plan: As per primary or hospitalist service. Patient continuing medications if he is awake enough to take them. (5) Port-A-Cath in place: Code(s): Z95.828 - Presence of other vascular implants and grafts Status: Acute Assessment and Plan: See plan above regarding the positive blood cultures and port plan. (6) GERD (gastroesophageal reflux disease): Code(s): K21.9 - Gastro-esophageal reflux disease without esophagitis Status: Acute Assessment and Plan: Patient on PPI. 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 Santana. Radiation treatments on hold during his acute infection. (8) ETOHism: Code(s): F10.20 - Alcohol dependence, uncomplicated Status: Acute Assessment and Plan: Has been receiving Librium for alcohol withdrawl symptoms. Patient very lethargic today. Management per Hospitalist. (9) Alcohol abuse: Code(s): F10.10 - Alcohol abuse, uncomplicated Status: Acute (10) Hypertension: Code(s): I10 - Essential (primary) hypertension Status: Acute Assessment and Plan: Management per Hospitalist. (11) CAD (coronary atherosclerotic disease): Onset Date: Unknown Code(s): I25.10 - Atherosclerotic heart disease of [place] coronary artery without angina pectoris Status: Acute Additional Plan 1. Stop Zosyn after today's noon dose if okay with ID 2. Stop vancomycin due to elevated creatinine and deactivate or the access port and follow. 3. Plan to leave port in place unless further instructions from ID occur. 4. If patient has worsening abdominal pain in the next 24 hours co
--- NOTE | 2020-04-05 10:55 | PCNFU ---
Nutrition Follow-Up Complete: Inadequate Oral Intake as related to bacteremia as evidenced by 10% weight loss in the past 6 months. Goal: Meet estimated nutritional needs Patient is progressing towards goal. We will continue current goal. Pt current nutrition is Heart Healthy. Last recorded weight is 71.8 kg, no new weight to report. Bowel Motility:+BM reported 04/05 Labs Reviewed:Cr 1.6,GFR 44,Alb 2.4 Meds Noted:Vancomycin,Zocyn,Lipitor,Folic Acid,Synthroid, Mag Ox. Additional Notes: Nutrition follow up today. Spoke with nursing, patient is more awake today. Oral intake is improvin% for breakfast today. Patient is drinking ensure compact, providing additional 220 kcals and 9 gms protein. Frequency of supplement increased today from BID to TID. Monitoring: weight, labs, oral intake every 5 days.
[2020-04-05 11:13] LABS: H pylori Ag Stool Not Detected (Not Detected)
--- NOTE | 2020-04-05 12:04 | WPDINFPN2 ---
Progress Note: A&P Assessment and Plan (1) Blood bacterial culture positive: Code(s): R78.81 - Bacteremia Status: Acute Assessment and Plan: 1. CNSS bacteremia with infection, port source likely. Repeat 4 sets ng final 2. Esophageal cancer, locally advanced, on XRT 3. Chest pain 4. Appendicitis by CT, still quite tender. ObsSeries normal as is WBC 5. Decreased LOC, metabolic vs drug. Doubt directly related to above infections REC Vanc #8, stop. The port can remain in place for now. Can stop PipTazo #7 also Subjective Date/time seen: 04/05/20 12:04 Interval history: offers no new complaints, getting bed bath Exam Narrative: Exam Narrative: afebrile Const: General: no acute distress GI: Inspection: non-distended GI Palp: Yes Firmness to palpation present (GI), Yes Tenderness to palpation present (GI) and No Guarding due to palpation present (GI) Skin: General skin exam: no rashes or lesions noted Objective Data Vital Signs Vital Signs: Vital Signs - 24 hr 04/04/20 16:00 04/04/20 20:00 04/04/20 20:05 Temperature 36.8 C 36.6 C Pulse Rate 83 85 84 Respiratory Rate 17 20 Blood Pressure 128/54 L 162/89 H Pulse Oximetry 98 98 04/04/20 20:07 04/04/20 23:31 04/05/20 00:00 Temperature 36.6 C Pulse Rate 84 83 82 Respiratory Rate 20 Blood Pressure 179/95 H Pulse Oximetry 99 04/05/20 04:00 04/05/20 08:00 04/05/20 09:15 Temperature 36.6 C 37.3 C Pulse Rate 92 99 95 Respiratory Rate 20 22 H Blood Pressure 160/82 H 191/103 H Pulse Oximetry 95 100 Intake/Output Intake/Output: Intake & Output 04/02/20 04/03/20 04/04/20 04/05/20 23:59 23:59 23:59 23:59 Intake Total 3410 4020 4170 1843 Balance 3410 4020 4170 1843 Meds/Results Medications: Active Medications Generic Name Dose Route Start Last Admin Trade Name Freq PRN Reason Stop Dose Admin Hydrocodone Bitart/Acetaminophen 1 tab 03/31/20 11:29 04/01/20 00:16 Hydrocodone/Acetaminophen (*Crx) 5-325 Mg Tablet PO 1 tab Q6H PRN Administration Pain Rated 4-6 Hydrocodone Bitart/Acetaminophen 1 tab 03/31/20 11:29 04/04/20 09:03 Hydrocodone/Acetaminophen (*Crx) 7.5-325 Mg Tablet PO 1 tab Q6H PRN Administration Pain Rated 7-10 Albuterol 2 puff 03/29/20 19:59 03/31/20 10:39 Albuterol Sulfate (*Sp) Aerosol 1 Puff INHALATION 2 puff Q6H PRN Administration Shortness Of Breath Or Wheezing Apixaban 10 mg 04/05/20 21:00 Apixaban 5 Mg Tablet PO Q12HR SHAZIA Atorvastatin Calcium 10 mg 03/30/20 09:00 04/05/20 09:06 Atorvastatin 10 Mg Tablet PO 10 mg DAILY SHAZIA Administration Calcitriol 0.5 mcg 03/30/20 09:00 04/05/20 09:06 Calcitriol 0.25 Mcg Capsule PO 04/29/20 09:01 0.5 mcg DAILY SHAZIA Administration Chlordiazepoxide HCl 25 mg 04/03/20 17:00 Chlordiazepoxide (*Crx) 25 Mg Capsule PO Q12H PRN Anxiety Docusate Sodium 100 mg 04/01/20 12:04 04/01/20 15:09 Docusate Sodium 100 Mg Capsule PO 100 mg Q12H PRN Administration Constipation Ferrous Sulfate 324 mg 03/30/20 08:00 04/05/20 09:04 Ferrous Sulfate 324 Mg Tablet PO 324 mg DAILY@0800 SHAZIA Administration Fluticasone Propionate 2 spray 03/29/20 21:00 04/04/20 20:07 Fluticasone Propionate 0.05% Na Spr 16 Gm Btl (*Bkc) NASAL 2 spray HS SHAZIA Administration Folic Acid 1 mg 03/30/20 09:00 04/05/20 09:06 Folic Acid 1 Mg Tablet PO 1 mg DAILY SHAZIA Administration Heparin Sodium (Porcine) 500 units 03/30/20 07:33 03/31/20 13:00 Heparin Sod Flush 500 Units/5 Ml Syringe IV PUSH 500 units PRN PRN Administration see comments below Piperacillin/Tazobactam/Dextrose 3.375 gm in 50 mls @ 100 mls/hr 03/30/20 17:00 04/05/20 05:45 Zosyn 3.375 Gm/D5w 50ml Pm IVPB Infused Q6HR SHAZIA Infusion Sodium Chloride 1,000 mls @ 100 mls/hr 04/01/20 12:05 04/05/20 09:05 Normal Saline Iv IV CONT 100 mls/hr .Q10H SHAZIA Infusion Sodium Chlorid
--- NOTE | 2020-04-05 15:32 | PM.IMPN ---
Progress Note: A&P Assessment and Plan (1) Sepsis: Code(s): A41.9 - Sepsis, unspecified organism Status: Acute Assessment and Plan: 04/05/20 15:32 patient had been on Bactrim and Pyridium for UTI. I resume the vancomycin. The patient had 2 blood cultures at [facility] on 1 did not have enough blood the other 1 had Gram-positive cocci in clusters. Which could be a contaminant. I did speak with Dr. Burris the surgeon here at [facility]. he stated that he would see the patient if we felt there was an infection in the Port-A-Cath. There is no signs and symptoms of any infection in the Port-A-Cath. We did recheck blood cultures. Recheck his urine. Patient does not appear to be septic. Recheck lactic. His lactic was coming back down to normal. 03/30/20 16:51 Patient is 59-year-old male with history of esophageal cancer he initially patient was admitted with [facility] and blood culture were positive coagulase negative staph aureus and patient was transferred to the [facility] concerning the patient's chemotherapy port may be infected, patient was seen by Dr. river suspect the chemotherapy port is infected and may need to be removed, patient is on vancomycin, seen by surgery service and further recommendation to follow, his clinically stable denies any fever or chills will continue to monitor. 03/31 today patient was seen by Dr. river recommending to continue vancomycin repeat blood culture, suspect port a source of infection but remained until further evaluation, patient also had a complaint abdominal pain was seen by surgery team CT scan was evaluated does not suspect patient has appendicitis patient is started on Zosyn, will monitor white count or if there is any fever further recommendation to follow, patient was seen dosimetrist oncologist recommending CT scan of the chest to further evaluate radiation therapy, patient may need chemotherapy in near future, will continue to monitor and further recommendation to follow. 04/01 patient still complains of abdominal pain discussed with Dr. Burris does not suspect appendicitis will continue to monitor 1 more day and continue zosyn 3/4 , seen by Dr. River suspect infected port, does not recommend to remove, 4 sets blood culture drawn on 03/29 still no growth, today patient appears hallucinating, is on CIWA protocol with Librium, his blood pressure is elevated his heart rate is elevated and abdominal pain is also persist, I have increased patient metoprolol to 50 mg b.i.d. from 25 mg b.i.d., will start the patient on IV hydration, will start the patient stool softner, will have a PT OT evaluate the pain and further recommendation to follow 04/02 today patient is quite somnolent is still complains abdominal pain he did have a BM today, patient was seen by Dr. Burris does not suspect patient has a true appendicitis, will continue Zosyn 1 more day, patient is seen by Dr. river suspect the port is infected and blood culture collected on 03/26 a growing coagulase-negative Staphylococcus aureus patient on vancomycin will continue, for sets of blood culture collected on 03/29 still no growth, patient with history of alcohol abuse is out of DT risk as he has been in hospital for more than a week will taper Librium 25 mg 2 b.i.d. from q6 S patient is getting more somnolent. Will continue to monitor and further recommendation to follow. 04/03 today patient is little more awake, abdominal pain is better, trying to eat his breakfast, we have tapered patient's Librium 25 mg b.i.d. from Q6 as patient was getting more somnolent and he is out of DT risk, discussed with Dr. Burris does not suspect patient has a true appendicitis and will stop the Zosyn after patient completes 4 days of antibiotic, so far there is no growth in blood culture collected on 03/29 awaiting further recommendation from Dr. River, though suspected port is infected most likely it may not have to be removed
--- NOTE | 2020-04-05 17:32 | PC.NURSE ---
Patient report received from Nubia Ye RN. All questions answered and patient care assumed. Pt resting quietly in bed with eyes closed. Appears to be sleeping. No signs of discomfort noted. Bed alarm on and call light in reach for safety. Will continue to monitor.
--- NOTE | 2020-04-05 19:12 | PC.NURSE ---
Pt report given to Michelle Lopez RN. All questions addressed. Pt care transferred.
[2020-04-05] MEDS: APIXABAN 5 MG TABLET 10 MG PO (20:39)
[2020-04-05] MEDS: FLUTICASONE PROPIONATE 0.05% NA SPR 16 GM BTL (*BKC) 2 SPRAY NASAL (20:39)
[2020-04-06] VITALS (12 sets, daily range): BP systolic 134–189; BP diastolic 75–114; PULSE 74–99; RESP 16–31; TEMP 36.4–37.2; O2SAT 96–99
[2020-04-06] MEDS: SODIUM CHLORIDE 0.9% IV 1,000 ML 100 ML IV CONT ×3 (00:29→22:59)
[2020-04-06 05:18] LABS: Basophils Percent Auto 0.4 % (0.2-1.2); Eosinophils Absolute Auto 0.1 K/mm3 (0-0.3); Eosinophils Percent Auto 1.4 % (0-4.4); Hematocrit 28.3 % (42.0-52.0); Hemoglobin 8.9 g/dL (14.0-18.0); Immature Granulocyte Absolute 0.03 K/mm3 (0.00-0.031); Immature Granulocyte Percent A 0.4 % (0-0.5); Lymphocytes Absolute Auto 0.81 K/mm3 (0.9-3.2); Mean Corpuscular HGB Conc 31.4 g/dl (32-36); Mean Corpuscular Hemoglobin 28.4 pg (26-34); Mean Corpuscular Volume 90.4 fl (80-100); Mean Platelet Volume 9.3 fl (7.4-10.4); Monocytes Absolute Auto 1.4 K/mm3 (0.1-0.6); Monocytes Percent Auto 16.9 % (2.6-8.5); Neutrophils Absolute Auto 5.8 K/mm3 (1.3-6.7); Neutrophils Percent Auto 70.9 % (45.5-73.1); Platelet Count Result 290 k/mm3 (150-375); Red Blood Count 3.13 M/mm3 (4.6-6.20); Red Cell Distribution Width 17.8 % (11.5-14.5); White Blood Count 8.1 K/mm3 (4.5-10.0)
[2020-04-06 05:46] LABS: Alanine Aminotransferase 9 U/L (4-50); Albumin Level 2.5 g/dL (3.5-5.1); Alkaline Phosphatase 53 U/L (38-126); Anion Gap 5 mmol/L (8-16); Aspartate Amino Transferase 18 U/L (17-59); Bilirubin,Total 0.4 mg/dL (0.2-1.3); Blood Urea Nitrogen 14 mg/dL (9-20); Calcium 8.8 mg/dL (8.4-10.2); Carbon Dioxide 21 mmol/L (22-30); Chloride 114 mmol/L (98-107); Estimated CRCL calculation 44 ml/min; Estimated Glomerular Filt Rate 44; Glucose 93 mg/dL (75-110); Magnesium 1.6 mg/dL (1.6-2.3); Potassium 3.7 mmol/L (3.4-5.0); Sodium 140 mmol/L (137-145)
[2020-04-06] MEDS: METOPROLOL TARTRATE 50 MG TAB PO ×3 (06:06→21:28)
[2020-04-06] MEDS: LEVOTHYROXINE SODIUM 25 MCG TABLET PO (06:06)
[2020-04-06] MEDS: FERROUS SULFATE 324 MG TABLET PO (09:30)
[2020-04-06] MEDS: POTASSIUM CHLORIDE 20 MEQ TABLET 40 MEQ PO (09:30)
[2020-04-06] MEDS: APIXABAN 5 MG TABLET 10 MG PO ×2 (09:30→21:28)
[2020-04-06] MEDS: ATORVASTATIN 10 MG TABLET PO (09:31)
[2020-04-06] MEDS: calcitrioL 0.25 MCG CAPSULE 0.5 MCG PO (09:31)
[2020-04-06] MEDS: MAGNESIUM OXIDE 400 MG TABLET PO (09:31)
[2020-04-06] MEDS: THIAMINE HCL 100 MG TABLET PO (09:31)
[2020-04-06] MEDS: FOLIC ACID 1 MG TABLET PO (09:31)
[2020-04-06] MEDS: PANTOPRAZOLE SODIUM IV 40 MG VIAL IV PUSH (09:31)
[2020-04-06] MEDS: hydrALAZINE HCL 20 MG/ML VIAL 10 MG IV PUSH (09:32)
[2020-04-06] MEDS: amLODIPine BESYLATE 5 MG TABLET PO (10:16)
--- NOTE | 2020-04-06 11:26 | PCOTNOTE ---
Attempted to see patient this am, however patient declined due to feeling dizzy and sick to my stomach. I walked a little bit earlier, but it hurts too much.
--- NOTE | 2020-04-06 11:27 | WPDNEURCNPN ---
Assessment and Plan Additional Plan encephalopathic I will obtain the EEG and then if necessary will consider the spinal tap Consult date: 04/06/20 Time Seen: 11:30 HPI: Calixto Lyons is a 59 year old male Admitted to the hospital on March 29, 2020 with the possibility of acute coronary syndrome in addition to the history of esophageal cancer and documented alcohol level of 250 lactic acid of 6.5 and findings suggestive of UTI for which he was treated with Bactrim and Pyridium for 48 hours subsequently his blood cultures were reportedly positive, seen by Dr. Tyler escalante for the positive blood cultures and with assessment of bacteremia in addition to the underlying medical problems of esophageal cancer that is Immunocompromised vancomycin was continued with the intention to explore Port-A-Cath. product/industry consultant suggested locally advanced esophageal cancer CT abdomen and pelvis consider the possibility of appendicitis and also MediPort infection was considered. subsequently blood cultures came back positive patient has been continued on vancomycin appendix was not inflamed. Antibiotics have been changed recently his level of alertness has been fluctuating which has raised the question about the possibility of Tierney metabolic versus drugs or directly related to the infection. Patient has been getting vitamin B1 supplement scheduled as well as levothyroxine. Most recent lab WBC is 8.1 hemoglobin 8.9 platelet count 2 9 0 most recent electrolytes fairly normal with BUN of 14 creatinine of 1.6, recent blood culture negative head CT with chronic age-related finding in punctate old pontine lacunar infarct and venous Doppler study with DVT of left internal jugular and subclavian vein Review of Systems Review of Systems: All systems reviewed & are unremarkable except as noted in HPI and below PMFSH Past Medical History Medical History Abnormal colonoscopy Abnormal EKG Acute hypokalemia Acute UTI Alcohol abuse Anxiety Benign prostatic hyperplasia Chronic anemia Compression fracture Including thoracic and lumbar compression fractures. Deep venous thrombosis Left femoral vein, left internal jugular, and let axillary veins noted on ultrasound in May 2019. Hepatic steatosis Hypertension Hypomagnesemia Hypothyroidism Kidney stones Major depression Nicotine use disorder Peptic ulcer disease Remote history of perforated peptic ulcer status post partial gastrectomy. Peripheral neuropathy Substance abuse Suicidal ideation Thyroid cancer Status post partial thyroidectomy. Previously on levothyroxine. Type 2 RI (myocardial infarction) (~08/2016) No ischemic cardiac evaluation was undertaken. Surgical History Surgical History H/O esophagogastroduodenoscopy History of cholecystectomy History of hernia repair Multiple ventral hernia repairs including incisional hernia repair, some with mesh. History of partial gastrectomy For perforated peptic ulcer. History of partial thyroidectomy For thyroid cancer. Family History Family History Father Cancer Mother Dementia Father Family history of malignant neoplasm Mother Family history of Alzheimer's disease Social History Social History Social History: patient has 2 children a son and a daughter. Patient is disable Surrogate decision maker: Shannan Lyons, daughter who is his durable power commercial litigation attorney for healthcare. he says that he still smokes about 2-6 cigarettes a day. Last time the patient drink alcohol was about 3 days ago. The patient is . Code status: Full code. Smoking packs per day: 0.5 Smoking cigarettes per day: 10.0 Years smoked: 45 Smoking pack-years: 22.50 Smoking status: Current every day smoker Tobacco type: cigarettes Second hand tobacco smoke ex
--- NOTE | 2020-04-06 12:23 | WPDINFPN2 ---
Progress Note: A&P Assessment and Plan (1) Blood bacterial culture positive: Code(s): R78.81 - Bacteremia Status: Acute Assessment and Plan: 1. CNSS bacteremia with infection, port source likely. Repeat 4 sets ng final 2. Esophageal cancer, locally advanced, on XRT 3. Chest pain 4. Appendicitis by CT, exam better 5. Decreased LOC, metabolic vs drug. Doubt directly related to above infections REC Off antibacterials. Analgesics. Port can remain in place and in use from my standpoint. Signing off, thanks Subjective Date/time seen: 04/06/20 12:23 Interval history: upper abd pain Exam Narrative: Exam Narrative: afebrile Const: General: no acute distress Resp: Effort & Inspection: normal respiratory effort Auscultation: clear to auscultation bilaterally Cardio: Rate: regular rate Rhythm: regular rhythm Heart sounds: no murmurs GI: Inspection: non-distended GI Palp: Yes Firmness to palpation present (GI), Yes Tenderness to palpation present (GI) and No Guarding due to palpation present (GI) Percussion: Yes normal to percussion Auscultation: abnormal bowel sounds Skin: General skin exam: normal color and no rashes or lesions noted Objective Data Vital Signs Vital Signs: Vital Signs - 24 hr 04/05/20 13:34 04/05/20 15:49 04/05/20 16:00 Temperature 36.1 C L Pulse Rate 90 85 79 Respiratory Rate 21 H Blood Pressure 156/87 H Pulse Oximetry 100 04/05/20 20:00 04/05/20 22:17 04/06/20 00:00 Temperature 36.5 C 36.4 C Pulse Rate 85 98 88 Respiratory Rate 17 23 H Blood Pressure 161/90 H 177/99 H Pulse Oximetry 98 96 04/06/20 04:00 04/06/20 06:06 04/06/20 08:00 Temperature 36.8 C Pulse Rate 94 96 74 Respiratory Rate 20 Blood Pressure 189/92 H Pulse Oximetry 98 04/06/20 08:35 04/06/20 10:15 Temperature 37.2 C Pulse Rate 90 Respiratory Rate 31 H Blood Pressure 186/114 H 157/86 H Pulse Oximetry 99 Intake/Output Intake/Output: Intake & Output 01/24/21 01/25/21 01/26/21 01/27/21 23:59 23:59 23:59 23:59 Intake Total 4020 4170 4740 1500 Balance 4020 4170 4740 1500 Meds/Results Medications: Active Medications Generic Name Dose Route Start Last Admin Trade Name Freq PRN Reason Stop Dose Admin Hydrocodone Bitart/Acetaminophen 1 tab 03/31/20 11:29 04/01/20 00:16 Hydrocodone/Acetaminophen (*Crx) 5-325 Mg Tablet PO 1 tab Q6H PRN Administration Pain Rated 4-6 Hydrocodone Bitart/Acetaminophen 1 tab 03/31/20 11:29 04/04/20 09:03 Hydrocodone/Acetaminophen (*Crx) 7.5-325 Mg Tablet PO 1 tab Q6H PRN Administration Pain Rated 7-10 Albuterol 2 puff 03/29/20 19:59 03/31/20 10:39 Albuterol Sulfate (*Sp) Aerosol 1 Puff INHALATION 2 puff Q6H PRN Administration Shortness Of Breath Or Wheezing Amlodipine Besylate 5 mg 04/06/20 09:05 04/06/20 10:16 Amlodipine Besylate 5 Mg Tablet PO 5 mg QAM SHAZIA Administration Apixaban 10 mg 04/05/20 21:00 04/06/20 09:30 Apixaban 5 Mg Tablet PO 10 mg Q12HR SHAZIA Administration Atorvastatin Calcium 10 mg 03/30/20 09:00 04/06/20 09:31 Atorvastatin 10 Mg Tablet PO 10 mg DAILY SHAZIA Administration Calcitriol 0.5 mcg 03/30/20 09:00 04/06/20 09:31 Calcitriol 0.25 Mcg Capsule PO 04/29/20 09:01 0.5 mcg DAILY SHAZIA Administration Chlordiazepoxide HCl 25 mg 04/03/20 17:00 Chlordiazepoxide (*Crx) 25 Mg Capsule PO Q12H PRN Anxiety Docusate Sodium 100 mg 04/01/20 12:04 04/01/20 15:09 Docusate Sodium 100 Mg Capsule PO 100 mg Q12H PRN Administration Constipation Ferrous Sulfate 324 mg 03/30/20 08:00 04/06/20 09:30 Ferrous Sulfate 324 Mg Tablet PO 324 mg DAILY@0800 SHAZIA Administration Fluticasone Propionate 2 spray 03/29/20 21:00 04/05/20 20:39 Fluticasone Propionate 0.05% Na Spr 16 Gm Btl (*Bkc) NASAL 2 spray HS SHAZIA Administration Folic Acid 1 mg 03/30/20 09:00 04/06/20 09:31 Folic Acid 1 Mg Tablet
--- NOTE | 2020-04-06 13:17 | PDRADONCCN ---
Recommendations Mr. Lyons has been non-compliant with his cancer treatment. He received a total of 27 Gy out of the prescribed 50.4 Gy which is not enough to achieve control of his cancer. This dose is not likely to cause radiation-related toxicity either. I have not heard from him since 02/22/2020 despite multiple attempts. His chest pain is unlikely to be related to his treatment but may be related to progression of his esophageal cancer. He was being transported for CT chest, abdomen and pelvis when I saw him on the floor. I will review those results when available. It may also be reasonable to perform imaging of the brain given his altered mental status. I agree with present management in the interim. I would be happy to resume radiation treatment if he elects to do so. Impression Bacteremia Altered mental status Esophageal cancer - noncompliant with treatment [facility] - Date/Time Seen 04/06/20 13:17 - Identifying Data Calixto Lyons is a 59 y.o. 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 He received a partial course of radiation therapy and refused chemotherapy. He is admitted now with septicemia, chest pain and altered mental status. Consultation was requested regarding his present management in relation to his radiation therapy. - History of Present Illness Mr. Lyons received 15 fractions of his 28-fraction course of radiation therapy. He started 12/22/2019 through 01/01/2020 showing up for his daily treatments. He then had a 45-day break stating he did not want to continue treatment. He returned 02/15/2020 through 02/22/2020 and then did not return for further treatment. He also refused chemotherapy. He will be undergoing CT chest, abdomen and pelvis shortly. He is unable to give any history at present due to altered mental status. - Medical History Medical History (Last Reviewed 04/06/20 @ 11:44 by Amrik Dominguez MD) Abnormal colonoscopy Abnormal EKG Acute hypokalemia Acute UTI Alcohol abuse Anxiety Benign prostatic hyperplasia Chronic anemia Compression fracture Including thoracic and lumbar compression fractures. Deep venous thrombosis Left femoral vein, left internal jugular, and let axillary veins noted on ultrasound in May 2019. Hepatic steatosis Hypertension Hypomagnesemia Hypothyroidism Kidney stones Major depression Nicotine use disorder Peptic ulcer disease Remote history of perforated peptic ulcer status post partial gastrectomy. Peripheral neuropathy Substance abuse Suicidal ideation Thyroid cancer Status post partial thyroidectomy. Previously on levothyroxine. Type 2 [place] (myocardial infarction) Onset Date: ~08/2016 No ischemic cardiac evaluation was undertaken. - Surgical History Surgical History (Last Reviewed 04/06/20 @ 11:44 by Amrik Dominguez MD) H/O esophagogastroduodenoscopy History of cholecystectomy History of hernia repair Multiple ventral hernia repairs including incisional hernia repair, some with mesh. History of partial gastrectomy For perforated peptic ulcer. History of partial thyroidectomy For thyroid cancer. - Family History Family History (Last Reviewed 04/06/20 @ 11:44 by Amrik Dominguez MD) Father Cancer Mother Dementia Father Family history of malignant neoplasm Mother Family history of Alzheimer's disease - Social History Social History (Last Reviewed 04/06/20 @ 11:44 by Amrik Dominguez MD) Gender Identity: Gender identity (if verbalized by the patient): Male Alcohol Use: Alcohol intake: current Drinks per week: 20 Substance Use: Substance use: current Substance use type: does not use Others: Spiritual care concerns: No Agree to blood products: Yes Smoking Status: Smoking status: Current every day smoker Tobacco type: cigarettes Second hand tobacco smoke exposure: Yes Smoking Pack-years:
--- NOTE | 2020-04-06 16:29 | WPDONCPN ---
Progress Note: A/P - Additional Plan Locally advanced esophageal cancer. Patient is a noncompliant patient. He only received very few radiation treatment and declined chemotherapy. I have reviewed Dr. Honeycutt input. CT scans were performed. There is some regression of esophageal cancer but evidence of hydroureteronephrosis with bilateral pleural effusion. I would suggest input from the Urology as well. Diarrhea. I ordered C diff stool. Anemia. This is secondary to malnutrition and previous radiation therapy treatment. No need for blood transfusion. Bacteremia. Patient completed course of antibiotic therapy. - Time Spent With Patient Total time spent is greater than 50% in coordination of care (as documented) at patient's floor/unit and/or counseling patient: 15 - 25 minutes Subjective Interval history: Locally advanced esophageal cancer Abdominal and chest discomfort Anemia Review of Systems - Review of Systems Patient seems to be quite uncomfortable. He is describing right lower abdominal pain as well as mid chest pain. He is not eating and drinking much. Denies any shortness of breath. No fevers and chills. Patient does have some diarrhea but no blood in the stool. Denies any burning in urine. - Neurologic Reports system reviewed and no additional complaints, except as documented, Reports hearing normal, Reports memory loss, Denies syncope, Denies headache(s), Denies loss of vision, Denies tingling, Denies tremor(s) Exam Vital signs: Temp Pulse Resp BP Pulse Ox 36.7 C 99 25 H 134/88 99 04/06/20 12:00 04/06/20 14:58 04/06/20 14:58 04/06/20 14:58 04/06/20 14:58 Lungs are clear to auscultation bilaterally Cardiovascular regular rate rhythm no murmurs Abdomen slight tenderness in the right upper quadrant Extremities no edema PN: Objective Data - Labs CBC & Chem 7: 04/06/20 05:00 04/06/20 05:00 Labs: Laboratory Results - last 24 hr 04/06/20 04/06/20 05:00 05:00 WBC 8.1 RBC 3.13 L Hgb 8.9 L Hct 28.3 L MCV 90.4 MCH 28.4 MCHC 31.4 L RDW 17.8 H Plt Count 290 MPV 9.3 Immature Gran % (Auto) 0.4 Neut % (Auto) 70.9 Lymph % (Auto) 10.0 L [place] % (Auto) 16.9 H Eos % (Auto) 1.4 Baso % (Auto) 0.4 Lymph # (Auto) 0.81 L [place] # (Auto) 1.4 H Eos # (Auto) 0.1 Baso # (Auto) 0.0 Abs Immat Gran (auto) 0.03 Absolute Neuts (auto) 5.8 Absolute Nucleated RBC 0.0 Nucleated RBC % 0.0 Sodium 140 Potassium 3.7 Chloride 114 H Carbon Dioxide 21 L Anion Gap 5 L BUN 14 Creatinine 1.60 H Estim Creat Clear Calc 44 Estimated GFR 44 L Glucose 93 Calcium 8.8 Magnesium 1.6 Total Bilirubin 0.4 AST 18 ALT 9 Alkaline Phosphatase 53 Total Protein 5.0 L Albumin 2.5 L
--- NOTE | 2020-04-06 18:03 | PM.IMPN ---
Progress Note: A&P Assessment and Plan (1) Sepsis: Code(s): A41.9 - Sepsis, unspecified organism Status: Acute Assessment and Plan: 04/05/20 15:32 patient had been on Bactrim and Pyridium for UTI. I resume the vancomycin. The patient had 2 blood cultures at [facility] on 1 did not have enough blood the other 1 had Gram-positive cocci in clusters. Which could be a contaminant. I did speak with Dr. Burris the surgeon here at [facility]. he stated that he would see the patient if we felt there was an infection in the Port-A-Cath. There is no signs and symptoms of any infection in the Port-A-Cath. We did recheck blood cultures. Recheck his urine. Patient does not appear to be septic. Recheck lactic. His lactic was coming back down to normal. 03/30/20 16:51 Patient is 59-year-old male with history of esophageal cancer he initially patient was admitted with [facility] and blood culture were positive coagulase negative staph aureus and patient was transferred to the [facility] concerning the patient's chemotherapy port may be infected, patient was seen by Dr. river suspect the chemotherapy port is infected and may need to be removed, patient is on vancomycin, seen by surgery service and further recommendation to follow, his clinically stable denies any fever or chills will continue to monitor. 03/31 today patient was seen by Dr. river recommending to continue vancomycin repeat blood culture, suspect port a source of infection but remained until further evaluation, patient also had a complaint abdominal pain was seen by surgery team CT scan was evaluated does not suspect patient has appendicitis patient is started on Zosyn, will monitor white count or if there is any fever further recommendation to follow, patient was seen vessel traffic officer oncologist recommending CT scan of the chest to further evaluate radiation therapy, patient may need chemotherapy in near future, will continue to monitor and further recommendation to follow. 04/01 patient still complains of abdominal pain discussed with Dr. Burris does not suspect appendicitis will continue to monitor 1 more day and continue zosyn 3/4 , seen by Dr. River suspect infected port, does not recommend to remove, 4 sets blood culture drawn on 03/29 still no growth, today patient appears hallucinating, is on CIWA protocol with Librium, his blood pressure is elevated his heart rate is elevated and abdominal pain is also persist, I have increased patient metoprolol to 50 mg b.i.d. from 25 mg b.i.d., will start the patient on IV hydration, will start the patient stool softner, will have a PT OT evaluate the pain and further recommendation to follow 04/02 today patient is quite somnolent is still complains abdominal pain he did have a BM today, patient was seen by Dr. Burris does not suspect patient has a true appendicitis, will continue Zosyn 1 more day, patient is seen by Dr. river suspect the port is infected and blood culture collected on 03/26 a growing coagulase-negative Staphylococcus aureus patient on vancomycin will continue, for sets of blood culture collected on 03/29 still no growth, patient with history of alcohol abuse is out of DT risk as he has been in hospital for more than a week will taper Librium 25 mg 2 b.i.d. from q6 S patient is getting more somnolent. Will continue to monitor and further recommendation to follow. 04/03 today patient is little more awake, abdominal pain is better, trying to eat his breakfast, we have tapered patient's Librium 25 mg b.i.d. from Q6 as patient was getting more somnolent and he is out of DT risk, discussed with Dr. Burris does not suspect patient has a true appendicitis and will stop the Zosyn after patient completes 4 days of antibiotic, so far there is no growth in blood culture collected on 03/29 awaiting further recommendation from Dr. River, though suspected port is infected most likely it may not have to be removed
[2020-04-06] MEDS: FLUTICASONE PROPIONATE 0.05% NA SPR 16 GM BTL (*BKC) 2 SPRAY NASAL (21:28)
--- NOTE | 2020-04-06 21:41 | PM.PNGS ---
Progress Note: A&P Assessment and Plan (1) Hyperplasia, appendix: Onset Date: ~03/30/20 Code(s): K38.0 - Hyperplasia of appendix Status: Acute Assessment and Plan: CT scan done on 03/30 because of intermittent chronic abdominal pain, which revealed a dilated appendix without surrounding inflammatory changes. Clinically, his exam does not correlate with acute appendicitis other than some mild discomfort with palpation in the RLQ, although IV Zosyn was added for coverage for this. He has had this now for 7 days so would consider stopping it and see how he does. Would recommend antibiotic treatment per ID, would be okay with trying to stop this from our standpoint. Abdominal films were also ordered by ID yesterday and were unremarkable for any sign of bowel obstruction or other problem. Pain does not seem to be worse in the abdomen today. However I believe for other reasons someone ordered a CT scan the abdomen chest and pelvis. Appendix had not changed and therefore is felt to have fatty infiltration not any inflammation. Of note the esophageal tumor seems to be either less prominent or the same as previous CTs. No new metastatic lesions picked up that I know of. (2) Staph infection: Onset Date: ~03/26/20 Code(s): B95.8 - Unspecified staphylococcus as the cause of diseases classified elsewhere Status: Acute Assessment and Plan: Blood cx on 03/26/20 positive for coag negative staph. Blood cx repeated on 03/29/20 X 4 NGTD and were finalized as negative yesterday. ID following, continue IV abx per ID recommendations. (? consider stopping now and following with new BC,s if he shows new signs of infection) --- WBC nl today and has been for several days. His port is considered a likely source for this. ID recommendsthat we have treated with antibotics and that the port may remain in place and be used. (3) Blood bacterial culture positive: Code(s): R78.81 - Bacteremia Status: Acute Assessment and Plan: May have been contaminated. Follow-up blood cultures are all negative. (4) Hypothyroidism: Code(s): E03.9 - Hypothyroidism, unspecified Status: Chronic Assessment and Plan: As per primary or hospitalist service. Patient continuing medications if he is awake enough to take them. (5) Port-A-Cath in place: Code(s): Z95.828 - Presence of other vascular implants and grafts Status: Acute Assessment and Plan: See plan above regarding the positive blood cultures and port plan. (6) GERD (gastroesophageal reflux disease): Code(s): K21.9 - Gastro-esophageal reflux disease without esophagitis Status: Acute Assessment and Plan: Patient on PPI. 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 Santana. Radiation treatments on hold during his acute infection. (8) ETOHism: Code(s): F10.20 - Alcohol dependence, uncomplicated Status: Acute Assessment and Plan: Has been receiving Librium for alcohol withdrawl symptoms. Patient very lethargic today. Management per Hospitalist. (9) Alcohol abuse: Code(s): F10.10 - Alcohol abuse, uncomplicated Status: Acute (10) Hypertension: Code(s): I10 - Essential (primary) hypertension Status: Acute Assessment and Plan: Management per Hospitalist. (11) CAD (coronary atherosclerotic disease): Onset Date: Unknown Code(s): I25.10 - Atherosclerotic heart disease of [place] coronary artery without angina pectoris Status: Acute Assessment and Plan: as per primary service. Additional Plan 1. Stop Zosyn and vancomycin Been stopped. Will recommend monitoring patient for fever and then redo blood cultures if needed. 2. Since we have now ruled out both the appendix and the port as a s
[2020-04-07] VITALS (10 sets, daily range): BP systolic 139–184; BP diastolic 76–105; PULSE 80–97; RESP 20–28; TEMP 36.3–37; O2SAT 98–100
[2020-04-07 05:22] LABS: Basophils Percent Auto 0.3 % (0.2-1.2); Eosinophils Absolute Auto 0.2 K/mm3 (0-0.3); Hematocrit 27.5 % (42.0-52.0); Hemoglobin 8.9 g/dL (14.0-18.0); Immature Granulocyte Absolute 0.03 K/mm3 (0.00-0.031); Immature Granulocyte Percent A 0.3 % (0-0.5); Lymphocytes Absolute Auto 0.85 K/mm3 (0.9-3.2); Lymphocytes Percent Auto 9.9 % (18.3-44.2); Mean Corpuscular HGB Conc 32.4 g/dl (32-36); Mean Corpuscular Hemoglobin 29.2 pg (26-34); Mean Corpuscular Volume 90.2 fl (80-100); Monocytes Absolute Auto 1.2 K/mm3 (0.1-0.6); Monocytes Percent Auto 14.1 % (2.6-8.5); Neutrophils Absolute Auto 6.3 K/mm3 (1.3-6.7); Neutrophils Percent Auto 73.4 % (45.5-73.1); Platelet Count Result 261 k/mm3 (150-375); Red Blood Count 3.05 M/mm3 (4.6-6.20); Red Cell Distribution Width 17.8 % (11.5-14.5); White Blood Count 8.6 K/mm3 (4.5-10.0)
[2020-04-07 05:37] LABS: Alanine Aminotransferase 9 U/L (4-50); Albumin Level 2.4 g/dL (3.5-5.1); Alkaline Phosphatase 57 U/L (38-126); Anion Gap 2 mmol/L (8-16); Aspartate Amino Transferase 16 U/L (17-59); Bilirubin,Total 0.4 mg/dL (0.2-1.3); Blood Urea Nitrogen 13 mg/dL (9-20); Calcium 8.7 mg/dL (8.4-10.2); Carbon Dioxide 21 mmol/L (22-30); Chloride 116 mmol/L (98-107); Estimated CRCL calculation 47 ml/min; Estimated Glomerular Filt Rate 48; Glucose 101 mg/dL (75-110); Magnesium 1.4 mg/dL (1.6-2.3); Potassium 3.3 mmol/L (3.4-5.0); Sodium 139 mmol/L (137-145)
[2020-04-07] MEDS: LEVOTHYROXINE SODIUM 25 MCG TABLET PO (06:16)
[2020-04-07] MEDS: METOPROLOL TARTRATE 50 MG TAB PO ×3 (06:16→21:00)
[2020-04-07] MEDS: SODIUM CHLORIDE 0.9% IV 1,000 ML 100 ML IV CONT (09:00)
[2020-04-07] MEDS: FERROUS SULFATE 324 MG TABLET PO (10:30)
[2020-04-07] MEDS: MAGNESIUM SULFATE 3GM/D5W100ML 3 GM/100 ML BAG IVPB (10:30)
[2020-04-07] MEDS: POTASSIUM CHLORIDE 20 MEQ TABLET 40 MEQ PO (10:31)
[2020-04-07] MEDS: APIXABAN 5 MG TABLET 10 MG PO ×2 (10:31→21:00)
[2020-04-07] MEDS: amLODIPine BESYLATE 5 MG TABLET PO (10:31)
[2020-04-07] MEDS: PANTOPRAZOLE SODIUM IV 40 MG VIAL IV PUSH (10:32)
[2020-04-07] MEDS: FOLIC ACID 1 MG TABLET PO (10:32)
[2020-04-07] MEDS: calcitrioL 0.25 MCG CAPSULE 0.5 MCG PO (10:32)
[2020-04-07] MEDS: ATORVASTATIN 10 MG TABLET PO (10:32)
[2020-04-07] MEDS: THIAMINE HCL 100 MG TABLET PO (10:32)
[2020-04-07] MEDS: MAGNESIUM OXIDE 400 MG TABLET PO (10:32)
[2020-04-07] MEDS: chlordiazePOXIDE (*CRX) 25 MG CAPSULE PO (11:40)
--- NOTE | 2020-04-07 11:40 | PC.NURSE ---
PT. HAVING GENERAL TREMORS, INTENTION TREMORS. PT. REQUESTS LIBRIUM. OK TO GIVE DOSE PER DR. JONES. ALSO, PER DR. JONES, NO NEED TO COLLECT C-DIFF STOOL. PT. IS NOT HAVING LIQUID STOOLS. HAVING SOFT BROWN/BLACK STOOLS. IS ON IRON.
--- NOTE | 2020-04-07 13:16 | WPDRADIATNAR ---
Radiation Narrative Note - Date/Time Date/Time: 04/07/20 13:16 - Narrative Narrative: CT chest, abdomen and pelvis yesterday shows decrease in prior wall thickening at the mid esophagus and no new progression of lymphadenopathy. There is a possible pneumonia versus radiation pneumonitis in the right upper lobe. In reviewing his radiation treatment plan, this area appears to be outside of the high dose region; radiation doses in the area of groundglass opacity are calculated to be at most only 10-15 Gy. Also seen is bilateral hydroureteronephrosis raising the possibility of chronic outlet obstruction or neurogenic bladder. Bilateral pleural effusions have increased. I agree with ongoing workup with neurology and urology. He can follow-up with me as an outpatient to discuss resuming treatment for his esophageal cancer.
--- NOTE | 2020-04-07 14:00 | PC.NURSE ---
NOTIFIED DR. GAINES OF PT'S DISCHARGE PLANNING IN PROGRESS. EEG MENTIONED IN HIS NOTE, BUT NOT ORDERED. DOES HE WANT EEG DONE? PER DR. GAIENS, NO EEG IS NECESSARY AND PT. IS OK TO TRANSFER TO SWING BED AT [facility] PER NEURO.
--- NOTE | 2020-04-07 14:00 | PC.NURSE ---
PER DR. BARCLAY'S NOTE, HYDROURETERONEPHROSIS NOTED; ASKING FOR UROLOGY'S INPUT. DR. JONES NOTIFIED OF SUCH AND NOTIFIED THAT PT. HAS BEEN HAVING INCONTINENCE AND DRIBBLING, AND URGENCY. ORDER RECEIVED TO CONSULT UROLOGY FOR HYDRONEPHROSIS. WILL CONSULT UROLOGY.
--- NOTE | 2020-04-07 14:30 | PC.NURSE ---
CONSULT CALLED TO DR. SAAVEDRA' OFFICE FOR UROLOGY.
[2020-04-07] MEDS: CENTRAL LINE FLUSH 10 ML IV PUSH ×2 (14:46→21:00)
--- NOTE | 2020-04-07 15:09 | WPDURCON ---
Assessment and Plan Assessment and plan (1) UTI (urinary tract infection): Code(s): N39.0 - Urinary tract infection, site not specified Status: Acute Assessment and Plan: No culture of urine was sent although he was nitrite positive on his initial UA from 03/26/2020. Will culture urine to ensure infection is gone since he was treated with two IV antibiotics. Urine appears yellow and clear. (2) Hydronephrosis: Code(s): N13.30 - Unspecified hydronephrosis Status: Acute Assessment and Plan: Secondary to left ureteral stone and urinary retention. Will likely resolve once stone has passed and after catheter placement. Will get a non contrast CT abdomen/pelvis to evaluate both stone passage and hydroenprhosis in 10 days. (3) BPH (benign prostatic hyperplasia): Code(s): N40.0 - Benign prostatic hyperplasia without lower urinary tract symptoms Status: Acute Assessment and Plan: Start Flomax and Finasteride. Remove agustin catheter in 10 days to do a voiding trial. Bladder scan him after first void, if <200cc, ok to keep agustin out. If >200cc will need to replace agustin and follow up xiang in our office. (4) Retention of urine: Code(s): R33.9 - Retention of urine, unspecified Status: Acute Assessment and Plan: Keep agustin in for 10 days, if no longer at [place], patient will need to follow up with us in 10 days for a voiding trial in the office. (5) Ureteral stone: Code(s): N20.1 - Calculus of ureter Status: Acute Assessment and Plan: 5mm left UVJ stone not visible on KUB, will repeat a non contrast CT abdomen/pelvis in 10 days to ensure passage of stone. Strain all urine. No intervention planned. (6) Renal calculus, right: Code(s): N20.0 - Calculus of kidney Status: Acute Assessment and Plan: 5mm right renal calculi, non obstructive. Urology Consult Note HPI Date Seen: 04/07/20 Requesting Physician: Dorcas Galindo MD Primary Care Provider: Shirin Murray MD Consult Narrative Narrative: Calixto Lyons is a 59 year old male who presented to the ER initially on 02/23/2021 for chest pain and weakness. He has a history of alcoholism and esophageal cancer, in which he receives radiation for. He is planning to be transferred to a swing bed in [place], but he has had new onset of urinary incontinence, hesitancy, dysuria, straining and dribbling that started a few days ago. He denies a history of BPH, but states he has had several UTI's recently that were treated by his PCP. His urine was nitrite positive when he arrived, but no urine culture was sent. His blood cultures did grow Coag negative Staphylococcus, in which he was treated with Vancomycin for. The source of sepsis is thought to have been his port-a-cath. He was evaluated by ID and general surgery as well and was also treated with IV Zosyn for potential appendicitis although no appendectomy was indicated. WBC is 8.6 today and creatinine is 1.50, he is slightly tachypneic, but is not tachycardic. His CT abdomen/pelvis yesterday does show multiple nephrolithiasis; 5 mm stones at the left kidney and left ureterovesicular junction, mild bilateral hydroureteronephrosis without evident obstructing stone or lesion on the right and this may be related to chronic outlet obstruction or neurogenic bladder with marked distention of the bladder. Patient c/o pelvic distention and pain as well as bilateral flank pain, more severe on the left. Review of Systems Respiratory: Respiratory: Reports no additional respiratory complaints Gastrointestinal: Gastrointestinal: Reports abdominal pain, Denies nausea and Denies vomiting Genitourinary: Genitourinary: Denies hematuria, Reports dysuria, Reports flank pain, Denies urinary frequency, Reports urinary hesitancy, Reports urinary incontinence and Denies urinary urgency PMFSH Past Medical History Medical History (Reviewed 04/07/20 @ 15:09 by Nima
--- NOTE | 2020-04-07 15:15 | PC.NURSE ---
SARA GARCIA MANAGER OF [facility] (UROLOGY) HERE TO SEE PT. 15F HARDWICK PLACED. IMMEDIATELY DRAINING LARGE AMOUNT OF CLEAR YELLOW URINE. WILL SEND URINE FOR UA AND CULTURE. FLOMAX AND FINASTERIDE ORDERED.
--- NOTE | 2020-04-07 16:15 | PC.NURSE ---
NOTIFIED DOMINGO SHAFFER W/ CARE COORDINATION, UROLOGY HAS SEEN PT AND PLACED HARDWICK. THEY ARE OK FOR PT. TO DISCHARGE TO SWING BED AT [facility]. STATES, PER DR. JONES, DISCHARGE TO SWING BED WILL TAKE PLACE IN AM 04/08/20. PT. NOTIFIED.
[2020-04-07 16:43] LABS: Add Urine Microscopic? YES; Appearance Urine Clear (Clear); Bilirubin Urine Negative (Negative); Blood Urine Negative (Negative); Color Urine Colorless (Yellow); Glucose Urine UA Negative (Negative); Ketones Urine Negative (Negative); Leukocyte Esterase Ur Negative LEU/UL (Negative); Mucus Urine Rare /lpf; Nitrate Urine Negative (Negative); Protein Urine 1+ mg/dL (Negative); RBC Urine 0-2 /hpf (0-2); Specific Grav Ur 1.006 (1.001-1.035); Urobilinogen Urine Negative mg/dL (<2.0); WBC Urine 0-3 /hpf
--- NOTE | 2020-04-07 16:44 | PM.DS ---
DS: Summary Time Spent with Patient Time attestation: Total time spent providing and/or coordinating discharge services: DS: Data Data Completed and Pending Labs on day of discharge: Labs from last 24 hours 04/07/20 04/07/20 04/07/20 16:31 05:10 05:10 WBC 8.6 RBC 3.05 L Hgb 8.9 L Hct 27.5 L MCV 90.2 MCH 29.2 MCHC 32.4 RDW 17.8 H Plt Count 261 MPV 9.0 Immature Gran % (Auto) 0.3 Neut % (Auto) 73.4 H Lymph % (Auto) 9.9 L [place] % (Auto) 14.1 H Eos % (Auto) 2.0 Baso % (Auto) 0.3 Lymph # (Auto) 0.85 L [place] # (Auto) 1.2 H Eos # (Auto) 0.2 Baso # (Auto) 0.0 Abs Immat Gran (auto) 0.03 Absolute Neuts (auto) 6.3 Absolute Nucleated RBC 0.0 Nucleated RBC % 0.0 Sodium 139 Potassium 3.3 L Chloride 116 H Carbon Dioxide 21 L Anion Gap 2 L BUN 13 Creatinine 1.50 H Estim Creat Clear Calc 47 Estimated GFR 48 L Glucose 101 Calcium 8.7 Magnesium 1.4 L Total Bilirubin 0.4 AST 16 L ALT 9 Alkaline Phosphatase 57 Total Protein 5.0 L Albumin 2.4 L Urine Color Colorless Urine Appearance Clear Urine pH 7.0 Ur Specific [place] 1.006 Urine Protein 1+ H Urine Glucose (UA) Negative Urine Ketones Negative Ur Blood (Man) Negative Urine Nitrate Negative Urine Bilirubin Negative Urine Urobilinogen Negative Leukocyte Esterase Rfl Negative Urine RBC 0-2 Urine WBC 0-3 Urine Mucus Rare Discharge Plan Discharge Attending physician on discharge: Kota Salinas Consulting providers: Yovany Burris ; Carroll Faye ; James Santana ; Amrik Dominguez ; Wil Velasco Discharging Clinician: Kota Salinas Patient Disposition: DC Chcf/Asst Living Activity: as tolerated Diet: heart healthy Discharge Instructions: Urology Instructions: Keep agustin in for 10 days, remove after 10 days if still at [facility] and perform a voiding trial, then bladder scan after the first void, if <200cc ok to keep agustin out. If >200cc replace agustin. If patient is discharged before 10 days he should follow up with our office for a voiding trial in 10 days and will also need to get a Non contrast CT abdomen/pelvis to re-evaluate hydronephrosis and left UVJ stone. Continue Flomax and Finasteride indefinitely. Monitor for urine culture results and start antibiotics if necessary. Patient to follow discharge care instruction from his uroloigst and follow up as scheduled, patient to follow up with his primary care as soon as possible. Patient Instructions: Antibiotic Form, Piperacillin/Tazobactam (By injection), Vancomycin (By injection), How to Stop Smoking (DC), Hyponatremia (DC), Deep Vein Thrombosis (DC), COPD (Chronic Obstructive Pulmonary Disease) (DC), Esophageal Cancer (DC) Stand Alone Forms: General Discharge Information Follow-up/Referrals: Wil Velasco MD [Physician] - Discharge Medications: New docusate sodium 100 mg Capsule 100 mg PO Q12H PRN (Reason: Constipation) Qty: 30 RF: 0 Eliquis 5 mg Tablet 10 mg PO Q12HR Qty: 60 RF: 0 metoprolol tartrate 50 mg Tablet 50 mg PO Q8HR Qty: 90 RF: 0 thiamine HCl (vitamin B1) [Vitamin B-1] 100 mg Tablet 100 mg PO QAM Qty: 30 RF: 0 amlodipine [Norvasc] 5 mg Tablet 5 mg PO QAM Qty: 30 RF: 0 finasteride [Proscar] 5 mg Tablet 5 mg PO QAM Qty: 30 RF: 0 tamsulosin 0.4 mg Capsule 0.4 mg PO QAM Qty: 30 RF: 0 Continued ferrous sulfate 325 mg (65 mg iron) Tablet 324 mg PO DAILY 30 Days Qty: 30 RF: 0 levothyroxine 25 mcg Tablet 25 mcg PO DAILY@0630 Qty: 30 RF: 0 trazodone 100 mg Tablet 100 mg PO HS PRN (Reason: Sleep) Qty: 30 RF: 0 albuterol sulfate 90 mcg/actuation HFA aerosol inhaler 2 puff INHALATION Q6H PRN (Reason: Shortness Of Breath Or Wheezing) Qty: 60 RF: 0 fluticasone propionate 50 mcg/actuation spray,suspension 2 spray I
[2020-04-07] MEDS: FLUTICASONE PROPIONATE 0.05% NA SPR 16 GM BTL (*BKC) 2 SPRAY NASAL (21:00)
[2020-04-08] VITALS (10 sets, daily range): BP systolic 121–166; BP diastolic 78–98; PULSE 87–106; RESP 20–24; TEMP 36.6–37.3; O2SAT 97–100
[2020-04-08] MEDS: METOPROLOL TARTRATE 50 MG TAB PO ×3 (05:33→21:21)
[2020-04-08] MEDS: LEVOTHYROXINE SODIUM 25 MCG TABLET PO (05:33)
[2020-04-08] MEDS: CENTRAL LINE FLUSH 10 ML IV PUSH ×3 (05:40→21:21)
[2020-04-08 05:47] LABS: Basophils Percent Auto 0.3 % (0.2-1.2); Eosinophils Absolute Auto 0.2 K/mm3 (0-0.3); Eosinophils Percent Auto 2.4 % (0-4.4); Hematocrit 24.3 % (42.0-52.0); Hemoglobin 7.8 g/dL (14.0-18.0); Immature Granulocyte Absolute 0.03 K/mm3 (0.00-0.031); Immature Granulocyte Percent A 0.4 % (0-0.5); Lymphocytes Absolute Auto 0.81 K/mm3 (0.9-3.2); Lymphocytes Percent Auto 10.4 % (18.3-44.2); Mean Corpuscular HGB Conc 32.1 g/dl (32-36); Mean Corpuscular Hemoglobin 29.2 pg (26-34); Mean Platelet Volume 9.1 fl (7.4-10.4); Monocytes Percent Auto 12.7 % (2.6-8.5); Neutrophils Absolute Auto 5.8 K/mm3 (1.3-6.7); Neutrophils Percent Auto 73.8 % (45.5-73.1); Platelet Count Result 241 k/mm3 (150-375); Red Blood Count 2.67 M/mm3 (4.6-6.20); Red Cell Distribution Width 18.1 % (11.5-14.5); White Blood Count 7.8 K/mm3 (4.5-10.0)
[2020-04-08 06:03] LABS: Alanine Aminotransferase 8 U/L (4-50); Albumin Level 2.1 g/dL (3.5-5.1); Alkaline Phosphatase 53 U/L (38-126); Anion Gap 4 mmol/L (8-16); Aspartate Amino Transferase 15 U/L (17-59); Bilirubin,Total 0.3 mg/dL (0.2-1.3); Blood Urea Nitrogen 10 mg/dL (9-20); Carbon Dioxide 20 mmol/L (22-30); Chloride 118 mmol/L (98-107); Estimated CRCL calculation 54 ml/min; Estimated Glomerular Filt Rate 56; Glucose 79 mg/dL (75-110); Magnesium 1.3 mg/dL (1.6-2.3); Sodium 142 mmol/L (137-145)
[2020-04-08] MEDS: chlordiazePOXIDE (*CRX) 25 MG CAPSULE PO ×2 (06:22→19:20)
[2020-04-08] MEDS: SODIUM CHLORIDE 0.9% IV 1,000 ML 100 ML IV CONT ×2 (06:24→16:31)
--- NOTE | 2020-04-08 08:58 | PC.NURSE ---
NOTIFIED DR. SINGLETARY OF AM LAB RESULTS, POLYURIA, AND EXCESSIVE THIRST. WILL BE BY TO SEE PT.
--- NOTE | 2020-04-08 09:15 | PC.NURSE ---
DR. SINGLETARY HERE TO SEE PT. ORDERS RECEIVED TO HOLD DISCHARGE/TRANSFER TO [facility] BED. CONSULT PLACED TO NEPHROLOGY ORDERED. WILL CONTINUE TO MONITOR. ELECTRIC FRYING PAN REPAIRER, DOMINGO SHAFFER, NOTIFIED OF TRANSFER HOLD ORDER.
--- NOTE | 2020-04-08 09:25 | PC.NURSE ---
CALL RECEIVED FROM DR. BULLOCK. UPDATED ON CONDITION, LABS, POLYURIA, UROLOGY CONSULT, THIRST. ORDERS RECEIVED TO REPLETE MAGNESIUM AND POTASSIUM.
[2020-04-08] MEDS: amLODIPine BESYLATE 5 MG TABLET PO (09:54)
[2020-04-08] MEDS: APIXABAN 5 MG TABLET 10 MG PO ×2 (09:54→21:19)
[2020-04-08] MEDS: MAGNESIUM OXIDE 400 MG TABLET PO (09:55)
[2020-04-08] MEDS: ATORVASTATIN 10 MG TABLET PO (09:55)
[2020-04-08] MEDS: FOLIC ACID 1 MG TABLET PO (09:55)
[2020-04-08] MEDS: FERROUS SULFATE 324 MG TABLET PO (09:55)
[2020-04-08] MEDS: calcitrioL 0.25 MCG CAPSULE 0.5 MCG PO (09:55)
[2020-04-08] MEDS: FINASTERIDE 5 MG TABLET PO (09:55)
[2020-04-08] MEDS: TAMSULOSIN HCL 0.4 MG CAPSULE PO (09:56)
[2020-04-08] MEDS: THIAMINE HCL 100 MG TABLET PO (09:56)
[2020-04-08] MEDS: PANTOPRAZOLE SODIUM IV 40 MG VIAL IV PUSH (09:56)
[2020-04-08] MEDS: MAGNESIUM SULF 2 GM/WATER 50ML 2 GM/50 ML BAG IVPB (10:59)
--- NOTE | 2020-04-08 11:03 | PC.NURSE ---
DR. GAINES HERE TO SEE PT. CONDITION UPDATE GIVEN.
--- NOTE | 2020-04-08 11:55 | WPDUROPN2 ---
Progress Note: A&P Assessment and Plan (1) Renal calculus, right: Code(s): N20.0 - Calculus of kidney Status: Acute (2) Ureteral stone: Code(s): N20.1 - Calculus of ureter Status: Acute Assessment and Plan: Repeat CT in 10 days as outpatient or at [facility] if still there to evaluate stone placement. NO intervention at this time, patient is not in pain. (3) Retention of urine: Code(s): R33.9 - Retention of urine, unspecified Status: Acute Assessment and Plan: Continue Flomax and Finasteride. Keep agustin in for 10 days, then perform voiding trial, replace agustin if he fails voiding trial, or if he is no longer at [facility] we will need to schedule voiding trial here in office. (4) BPH (benign prostatic hyperplasia): Code(s): N40.0 - Benign prostatic hyperplasia without lower urinary tract symptoms Status: Acute (5) Hydronephrosis: Code(s): N13.30 - Unspecified hydronephrosis Status: Acute Assessment and Plan: Will look for resolution on repeat CT abdomen/pelvis. Subjective Subjective Date/Time Seen: 04/08/20 11:55 Urinary Retention BPH Distal Ureteral Stone Patient notes resolution of abdominal pain since catheter was placed. Review of Systems Cardiovascular: Cardiovascular: Denies chest pain Respiratory: Respiratory: Reports no additional respiratory complaints Gastrointestinal: Gastrointestinal: Denies abdominal pain, Denies nausea and Denies vomiting Genitourinary: Genitourinary: Denies hematuria and Reports other (retention) Exam Resp: Effort & Inspection: normal respiratory effort Cardio: Rate: regular rate GI: GI Palp: Yes Soft to palpation and No Tenderness to palpation present (GI) : General: Yes no CVA tenderness Urinary Catheter: Urinary Catheter: patent and draining and urine clear Extrem: General: no edema Objective Data Vital Signs Vital Signs: Vital Signs - 24 hr 04/07/20 12:00 04/07/20 14:46 04/07/20 16:00 Temperature 98.6 F 98 F Pulse Rate 88 97 80 Respiratory Rate 26 H 28 H Blood Pressure 148/99 H 146/89 H Pulse Oximetry 100 100 04/07/20 20:00 04/07/20 20:25 04/07/20 21:00 Temperature 97.7 F Pulse Rate 92 97 90 Respiratory Rate 24 H Blood Pressure 139/76 Pulse Oximetry 99 04/08/20 00:00 04/08/20 04:00 04/08/20 05:33 Temperature 97.8 F Pulse Rate 90 87 95 Respiratory Rate 20 Blood Pressure 142/85 H Pulse Oximetry 99 04/08/20 05:35 Temperature 98.3 F Pulse Rate 95 Respiratory Rate 20 Blood Pressure 153/91 H Pulse Oximetry 98 Intake/Output Intake/Output: Intake & Output 04/05/20 04/06/20 04/07/20 04/08/20 23:59 23:59 23:59 23:59 Intake Total 4740 3000 3820 1750 Output Total 1 2300 5175 Balance 4740 1589 [id number] -[id number] Meds/Results Medications: Active Medications Generic Name Dose Route Start Last Admin Trade Name Freq PRN Reason Stop Dose Admin Hydrocodone Bitart/Acetaminophen 1 tab 03/31/20 11:29 04/01/20 00:16 Hydrocodone/Acetaminophen (*Crx) 5-325 Mg Tablet PO 1 tab Q6H PRN Administration Pain Rated 4-6 Hydrocodone Bitart/Acetaminophen 1 tab 03/31/20 11:29 04/04/20 09:03 Hydrocodone/Acetaminophen (*Crx) 7.5-325 Mg Tablet PO 1 tab Q6H PRN Administration Pain Rated 7-10 Albuterol 2 puff 03/29/20 19:59 03/31/20 10:39 Albuterol Sulfate (*Sp) Aerosol 1 Puff INHALATION 2 puff Q6H PRN Administration Shortness Of Breath Or Wheezing Amlodipine Besylate 5 mg 04/06/20 09:05 04/08/20 09:54 Amlodipine Besylate 5 Mg Tablet PO 5 mg QAM SHAZIA Administration Apixaban 10 mg 04/05/20 21:00 04/08/20 09:54 Apixaban 5 Mg Tablet PO 10 mg Q12HR SHAZIA Administration Atorvastatin Calcium 10 mg 03/30/20 09:00 04/08/20 09:55 Atorvastatin 10 Mg Tablet PO 10 mg DAILY SHAZIA Administration Calcitriol 0.5 mcg 03/30/20 09:00 04/08/20 09:55 Calcitriol 0.25 Mcg Capsule PO 04/29/20 09:
--- NOTE | 2020-04-08 12:43 | PM.IMPN ---
Progress Note: A&P Assessment and Plan (1) Sepsis: Code(s): A41.9 - Sepsis, unspecified organism Status: Acute Assessment and Plan: Patient had positive blood culture of Staph aureus treated with IV vancomycin ID was consulted probable source infected port no plan for port removal surgery and ID following completed course of IV antibiotics also probably patient has UTI treated with IV Zosyn continue on oral antibiotics. (2) ETOHism: Code(s): F10.20 - Alcohol dependence, uncomplicated Status: Acute Assessment and Plan: The patient does have a history of alcoholism. The patient drink last about 3 days before admission. [employer] protocol. (3) Anemia: Qualifiers: Anemia type: unspecified type Qualified Code(s): D64.9 - Anemia, unspecified Code(s): D64.9 - Anemia, unspecified Status: Acute Assessment and Plan: Monitor H&H complicated decision as patient has acute DVT on Eliquis continue Eliquis for now monitor H&H. (4) Squamous cell carcinoma of esophagus: Code(s): C15.9 - Malignant neoplasm of esophagus, unspecified Status: Acute Assessment and Plan: Patient is noncompliant oncology was consulted patient received half of the radiation treatments refused chemotherapy Patient had multiple comorbidities Problem may benefit from comfort care or hospice as patient is noncompliant and has multiple comorbidities. (5) Major depression: Qualifiers: Active/Remission status: currently active Major depression episode severity: unspecified Major depression recurrence: recurrent Qualified Code(s): F33.9 - Major depressive disorder, recurrent, unspecified Code(s): F32.9 - Major depressive disorder, single episode, unspecified Status: Acute Assessment and Plan: Continue with home medications. Stable (6) Chronic deep vein thrombosis (DVT) of femoral vein of left lower extremity: Onset Date: Unknown Code(s): I82.512 - Chronic embolism and thrombosis of left femoral vein Status: Chronic Assessment and Plan: Patient was off anticoagulation. For chronic DVT of lower extremity but anticoagulation was restarted for upper extremity DVT (7) Hypothyroidism: Code(s): E03.9 - Hypothyroidism, unspecified Status: Chronic Assessment and Plan: Continue with patient's home medications. (8) DVT of upper extremity (deep vein thrombosis): Code(s): I82.629 - Acute embolism and thrombosis of deep veins of unspecified upper extremity Status: Acute Assessment and Plan: Patient was treated with Lovenox currently on Eliquis complicated decision as patient has worsening anemia Subjective Date/time seen: 04/08/20 12:43 Interval history: Patient seen and examined Patient was admitted to the hospital with positive blood culture for Staph was treated with IV vancomycin also IV Zosyn was added it was thought that the port was infected ID was consulted surgery was consulted but according to ID probably the port is infected but it does not need to be removed also patient developed episodes of confusion secondary to alcohol withdrawal 1 was treated with Librium also during hospitalization patient continued to have abdominal pain concern for appendicitis surgery was consulted no evidence of appendicitis CT scan was done showed bilateral pleural effusion probable pneumonia versus atelectasis and bilateral hydronephrosis with concern for puj obstruction urology was consulted Tierney catheter was placed patient also was found to have jugular vein thrombosis subclavian vein thrombosis started on Lovenox switch it to Eliquis Patient has history of esophageal cancer locally advanced oncology following but patient is noncompliant patient received few treatment of radiation therapy did not receive chemotherapy 04/08/2020 patient is having polyuria Anemia is worsening Patient feels weak Patient denies fev
[2020-04-08] MEDS: POTASSIUM CHLORIDE 20 MEQ TABLET 40 MEQ PO (13:20)
[2020-04-08 13:44] LABS: Hematocrit 26.6 % (42.0-52.0); Hemoglobin 8.6 g/dL (14.0-18.0)
--- NOTE | 2020-04-08 13:45 | PCOTNOTE ---
Patient eating lunch, will continue plan of care tomorrow, 04/09/2020.
--- NOTE | 2020-04-08 14:05 | PM.CNNEP ---
Assessment and Plan Assessment and plan (1) Hypokalemia: Onset Date: Unknown Code(s): E87.6 - Hypokalemia Status: Acute Assessment and Plan: suspect more related to chronic alcoholism in associated with poor oral intake probably total body potassium depletion worsened by post-obstructive diuresis replete PRN (oral and IV) as needed (2) Hypomagnesemia: Code(s): E83.42 - Hypomagnesemia Status: Acute Assessment and Plan: suspect more related to chronic alcoholism in associated with poor oral intake probably total body magnesium depletion worsened by post-obstructive diuresis replete PRN (oral and IV) as needed (3) MILTON (acute kidney injury): Code(s): N17.9 - Acute kidney failure, unspecified Status: Acute Assessment and Plan: resolving due to infection and obstruction follow trend of creatinine (4) Polyuria: Code(s): R35.8 - Other polyuria Status: Acute Assessment and Plan: due to post-obstructive diuresis on IVFs but may need to reduce rate as this maybe driving the urine output hopefully, IVFs can be weaned as oral intake/hydration improves (5) Alcohol abuse: Code(s): F10.10 - Alcohol abuse, uncomplicated Status: Acute Assessment and Plan: chronic issue on withdrawal precautions Will continue to follow. History of Present Illness Reason for Consult Consult date: 04/08/20 Reason for consult: acute renal failure and Other (Post obstructive diuresis) Chief Complaint Chief complaint: bacteremia History of Present Illness Narrative: The patient is as 59 year old male with a past medical history as outlined below who was directed admitted to [facility] for further evaluation of bacteremia. The [facility] further evaluation of chest pain. Acute coronary syndrome was ruled out and it was thought that his chest pain was more secondary to his known diagnosis of esophageal cancer. However, further evaluation that time was concerning for possible sepsis as he had elevated lactic acid level and evidence of what appeared to be a urinary tract infection by his urinalysis (however urine culture was never apparently done). However, blood cultures that were done in the ER demonstrated gram-positive cocci in clusters which was noted to be staphylococci us. As he has a Port-A-Cath in place the concern was that this was the source of infection and he was subsequently transferred to [facility] for further evaluation of this problem and possible removal of his Port-A-Cath. Since his transfer to [facility], he is being seen by surgery as well as Infectious Disease for the issue of his bacteremia and possible need for Port-A-Cath removal. He has been continued on IV antibiotic therapy and there was some concern that he may have some abdominal process present given his abdominal pain on presentation as well. A CT scan of the abdomen pelvis demonstrated no acute pathology with regard to his abdominal pain but did mention multiple nephrolithiasis with a 5 mm stones at the left kidney and left ureterovesicular junction, mild bilateral hydroureteronephrosis without evident obstructing stone or lesion on the right and this may be related to chronic outlet obstruction or neurogenic bladder with marked distention of the bladder. a Tierney catheter was placed and he has had significant urine output since his placement and Urology was consulted for further evaluation / intervention. At this time, the tentative plan is continue Tierney catheter placement and a repeat CT scan of the abdomen pelvis about a week to 10 days to evaluate for passage of the a for mentioned obstructing left kidney stone. Renal consultation was requested due to his evident postobstructive diuresis and the subsequent electrolyte abnormalities that have been noted includ
--- NOTE | 2020-04-08 15:01 | PCPTNOTE ---
Attempted therapy session at 14:55, Pt was sleeping upon entering room. Upon waking Pt refused stating, I'm just so tired and have no energy. Maybe tomorrow. Per RN Pt had been up to the chair since 5:30 AM and had recently gotten back into bed. Will continue per POC.
--- NOTE | 2020-04-08 17:00 | PC.NURSE ---
DR. BULLOCK HERE TO SEE PT.
--- NOTE | 2020-04-08 19:00 | PC.NURSE ---
MOVED FROM TOOTH POLISHER 3 TO TOOTH POLISHER 7 (STATUS REMAINS MED TELE) TO BE CLOSER TO NURSES STATION. TOLERATED WELL.
[2020-04-08 20:56] LABS: Hematocrit 24.8 % (42.0-52.0); Hemoglobin 7.8 g/dL (14.0-18.0)
[2020-04-08] MEDS: FLUTICASONE PROPIONATE 0.05% NA SPR 16 GM BTL (*BKC) 2 SPRAY NASAL (21:18)
[2020-04-09] VITALS (7 sets, daily range): BP systolic 131–151; BP diastolic 77–92; PULSE 83–104; RESP 18–22; TEMP 36.6–36.8; O2SAT 97–100
[2020-04-09] MEDS: SODIUM CHLORIDE 0.9% IV 1,000 ML 100 ML IV CONT ×2 (02:06→13:50)
[2020-04-09] MEDS: CENTRAL LINE FLUSH 10 ML IV PUSH ×2 (03:40→08:06)
[2020-04-09 03:55] LABS: Alanine Aminotransferase 8 U/L (4-50); Albumin Level 2.2 g/dL (3.5-5.1); Alkaline Phosphatase 50 U/L (38-126); Anion Gap 1 mmol/L (8-16); Aspartate Amino Transferase 16 U/L (17-59); Bilirubin,Total 0.3 mg/dL (0.2-1.3); Blood Urea Nitrogen 12 mg/dL (9-20); Calcium 8.2 mg/dL (8.4-10.2); Carbon Dioxide 23 mmol/L (22-30); Chloride 111 mmol/L (98-107); Estimated CRCL calculation 50 ml/min; Estimated Glomerular Filt Rate 52; Glucose 96 mg/dL (75-110); Magnesium 1.3 mg/dL (1.6-2.3); Sodium 135 mmol/L (137-145)
[2020-04-09 03:58] LABS: Basophils Percent Auto 0.4 % (0.2-1.2); Eosinophils Absolute Auto 0.1 K/mm3 (0-0.3); Eosinophils Percent Auto 1.7 % (0-4.4); Hematocrit 23.5 % (42.0-52.0); Hemoglobin 7.6 g/dL (14.0-18.0); Immature Granulocyte Absolute 0.04 K/mm3 (0.00-0.031); Immature Granulocyte Percent A 0.6 % (0-0.5); Lymphocytes Absolute Auto 0.78 K/mm3 (0.9-3.2); Lymphocytes Percent Auto 11.1 % (18.3-44.2); Mean Corpuscular HGB Conc 32.3 g/dl (32-36); Mean Corpuscular Hemoglobin 29.1 pg (26-34); Mean Platelet Volume 9.6 fl (7.4-10.4); Monocytes Absolute Auto 0.9 K/mm3 (0.1-0.6); Monocytes Percent Auto 13.4 % (2.6-8.5); Neutrophils Absolute Auto 5.1 K/mm3 (1.3-6.7); Neutrophils Percent Auto 72.8 % (45.5-73.1); Platelet Count Result 279 k/mm3 (150-375); Red Blood Count 2.61 M/mm3 (4.6-6.20); Red Cell Distribution Width 17.6 % (11.5-14.5)
[2020-04-09] MEDS: METOPROLOL TARTRATE 50 MG TAB PO ×2 (05:32→13:51)
[2020-04-09] MEDS: LEVOTHYROXINE SODIUM 25 MCG TABLET PO (05:32)
[2020-04-09] MEDS: MAGNESIUM SULF 4 GM/WATER100ML 4 GM/100 ML BAG IVPB (06:25)
[2020-04-09] MEDS: chlordiazePOXIDE (*CRX) 25 MG CAPSULE PO (07:45)
[2020-04-09] MEDS: FERROUS SULFATE 324 MG TABLET PO (07:47)
[2020-04-09] MEDS: PANTOPRAZOLE SODIUM IV 40 MG VIAL IV PUSH (08:03)
[2020-04-09] MEDS: APIXABAN 5 MG TABLET 10 MG PO (08:03)
[2020-04-09] MEDS: MAGNESIUM OXIDE 400 MG TABLET PO (08:04)
[2020-04-09] MEDS: TAMSULOSIN HCL 0.4 MG CAPSULE PO (08:04)
[2020-04-09] MEDS: amLODIPine BESYLATE 5 MG TABLET PO (08:04)
[2020-04-09] MEDS: ATORVASTATIN 10 MG TABLET PO (08:04)
[2020-04-09] MEDS: POTASSIUM CHLORIDE 20 MEQ TABLET 40 MEQ PO (08:04)
[2020-04-09] MEDS: FINASTERIDE 5 MG TABLET PO (08:04)
[2020-04-09] MEDS: FOLIC ACID 1 MG TABLET PO (08:05)
[2020-04-09] MEDS: THIAMINE HCL 100 MG TABLET PO (08:05)
[2020-04-09] MEDS: calcitrioL 0.25 MCG CAPSULE 0.5 MCG PO (08:05)
--- NOTE | 2020-04-09 09:59 | PM.DS ---
DS: Admitting Diagnosis Admitting Diagnosis Admitting Diagnosis: Positive blood culture DS: Discharge Diagnosis Discharge Diagnosis (1) Sepsis: Code(s): A41.9 - Sepsis, unspecified organism Status: Acute Assessment and Plan: Patient had positive blood culture of Staph aureus treated with IV vancomycin ID was consulted probable source infected port no plan for port removal surgery and ID following completed course of IV antibiotics also probably patient has UTI treated with IV Zosyn , oral antibiotics. (2) ETOHism: Code(s): F10.20 - Alcohol dependence, uncomplicated Status: Acute Assessment and Plan: The patient does have a history of alcoholism. The patient drink last about 3 days before admission. Renal (3) Anemia: Qualifiers: Anemia type: unspecified type Qualified Code(s): D64.9 - Anemia, unspecified Code(s): D64.9 - Anemia, unspecified Status: Acute Assessment and Plan: Monitor H&H complicated decision as patient has acute DVT on Eliquis continue Eliquis for now monitor CBC in a.m. then weekly for 2 weeks (4) Squamous cell carcinoma of esophagus: Code(s): C15.9 - Malignant neoplasm of esophagus, unspecified Status: Acute Assessment and Plan: Patient is noncompliant oncology was consulted patient received half of the radiation treatments refused chemotherapy Patient had multiple comorbidities Problem may benefit from comfort care or hospice as patient is noncompliant and has multiple comorbidities. (5) Major depression: Qualifiers: Major depression recurrence: recurrent Active/Remission status: currently active Major depression episode severity: unspecified Qualified Code(s): F33.9 - Major depressive disorder, recurrent, unspecified Code(s): F32.9 - Major depressive disorder, single episode, unspecified Status: Acute Assessment and Plan: Continue with home medications. Stable (6) Chronic deep vein thrombosis (DVT) of femoral vein of left lower extremity: Onset Date: Unknown Code(s): I82.512 - Chronic embolism and thrombosis of left femoral vein Status: Chronic Assessment and Plan: Patient was off anticoagulation. For chronic DVT of lower extremity but anticoagulation was restarted for upper extremity DVT (7) Hypothyroidism: Code(s): E03.9 - Hypothyroidism, unspecified Status: Chronic Assessment and Plan: Continue with patient's home medications. (8) DVT of upper extremity (deep vein thrombosis): Code(s): I82.629 - Acute embolism and thrombosis of deep veins of unspecified upper extremity Status: Acute Assessment and Plan: Patient was treated with Lovenox currently on Eliquis complicated decision as patient has worsening anemia most likely anemia of chronic disease no evidence of significant acute GI bleed monitor stool for melena monitor vital sign repeat CBC in a.m. (9) Obstructive uropathy: Code(s): N13.9 - Obstructive and reflux uropathy, unspecified Status: Acute Assessment and Plan: Urology was consulted patient will be discharged with Tierney catheter patient had multiple stones with mild hydronephrosis patient also has neurogenic bladder follow-up with urology as outpatient Patient developed postobstructive diuresis encourage oral hydration follow-up with nephrology improved Monitor urine output replace urine output with oral hydration as much as possible DS: Summary Hospital Course Hospital Course: Patient was admitted to the hospital with positive blood cultures secondary to Staph was treated with IV antibiotics there was concern about port infection surgery was consulted decision was made to treat with IV antibiotics also patient had UTI treated with antibiotics also patient has abdominal pain was found to have bilateral nephrolithiasis mild bilateral hydronephrosis and neurogenic bladder Tierney catheter was plac
[2020-04-09 10:15] LABS: Hematocrit 25.1 % (42.0-52.0); Hemoglobin 8.1 g/dL (14.0-18.0)
[2020-04-09] MEDS: POTASSIUM CHLORIDE 20 MEQ TABLET PO (11:50)
--- NOTE | 2020-05-25 15:59 | PM.IMPN ---
Progress Note: A&P Assessment and Plan (1) Sepsis: Code(s): A41.9 - Sepsis, unspecified organism Status: Acute Assessment and Plan: 04/05/20 15:32 patient had been on Bactrim and Pyridium for UTI. I resume the vancomycin. The patient had 2 blood cultures at [facility] on 1 did not have enough blood the other 1 had Gram-positive cocci in clusters. Which could be a contaminant. I did speak with Dr. Burris the surgeon here at [facility]. he stated that he would see the patient if we felt there was an infection in the Port-A-Cath. There is no signs and symptoms of any infection in the Port-A-Cath. We did recheck blood cultures. Recheck his urine. Patient does not appear to be septic. Recheck lactic. His lactic was coming back down to normal. 03/30/20 16:51 Patient is 59-year-old male with history of esophageal cancer he initially patient was admitted with [facility] and blood culture were positive coagulase negative staph aureus and patient was transferred to the [facility] concerning the patient's chemotherapy port may be infected, patient was seen by Dr. river suspect the chemotherapy port is infected and may need to be removed, patient is on vancomycin, seen by surgery service and further recommendation to follow, his clinically stable denies any fever or chills will continue to monitor. 03/31 today patient was seen by Dr. river recommending to continue vancomycin repeat blood culture, suspect port a source of infection but remained until further evaluation, patient also had a complaint abdominal pain was seen by surgery team CT scan was evaluated does not suspect patient has appendicitis patient is started on Zosyn, will monitor white count or if there is any fever further recommendation to follow, patient was seen harness and bag inspector oncologist recommending CT scan of the chest to further evaluate radiation therapy, patient may need chemotherapy in near future, will continue to monitor and further recommendation to follow. 04/01 patient still complains of abdominal pain discussed with Dr. Burris does not suspect appendicitis will continue to monitor 1 more day and continue zosyn 3/4 , seen by Dr. River suspect infected port, does not recommend to remove, 4 sets blood culture drawn on 03/29 still no growth, today patient appears hallucinating, is on CIWA protocol with Librium, his blood pressure is elevated his heart rate is elevated and abdominal pain is also persist, I have increased patient metoprolol to 50 mg b.i.d. from 25 mg b.i.d., will start the patient on IV hydration, will start the patient stool softner, will have a PT OT evaluate the pain and further recommendation to follow 04/02 today patient is quite somnolent is still complains abdominal pain he did have a BM today, patient was seen by Dr. Burris does not suspect patient has a true appendicitis, will continue Zosyn 1 more day, patient is seen by Dr. river suspect the port is infected and blood culture collected on 03/26 a growing coagulase-negative Staphylococcus aureus patient on vancomycin will continue, for sets of blood culture collected on 03/29 still no growth, patient with history of alcohol abuse is out of DT risk as he has been in hospital for more than a week will taper Librium 25 mg 2 b.i.d. from q6 S patient is getting more somnolent. Will continue to monitor and further recommendation to follow. 04/03 today patient is little more awake, abdominal pain is better, trying to eat his breakfast, we have tapered patient's Librium 25 mg b.i.d. from Q6 as patient was getting more somnolent and he is out of DT risk, discussed with Dr. Burris does not suspect patient has a true appendicitis and will stop the Zosyn after patient completes 4 days of antibiotic, so far there is no growth in blood culture collected on 03/29 awaiting further recommendation from Dr. River, though suspected port is infected most likely it may not have to be removed
== END 2020-04-09 16:30 | disposition swing bed (61) | DRG 314 ==
PROVIDERS: Internal Medicine; Internal Medicine Hematology & Oncology; Internal Medicine Infectious Disease; Nurse Practitioner; Nurse Practitioner Adult Health; Surgery; Admitting Provider Internal Medicine; PCP Internal Medicine; Visit Provider Family Medicine
DX: T80.211A Bloodstream infection due to central venous catheter, initial encounter (principal); A41.01 Sepsis due to Methicillin susceptible Staphylococcus aureus; N13.6 Pyonephrosis; F33.9 Major depressive disorder, recurrent, unspecified; I82.512 Chronic embolism and thrombosis of left femoral vein; N17.9 Acute kidney failure, unspecified; C15.4 Malignant neoplasm of middle third of esophagus; I82.C12 Acute embolism and thrombosis of left internal jugular vein; I82.B12 Acute embolism and thrombosis of left subclavian vein; N13.9 Obstructive and reflux uropathy, unspecified; F10.20 Alcohol dependence, uncomplicated; D64.9 Anemia, unspecified; E03.9 Hypothyroidism, unspecified; E83.42 Hypomagnesemia; E87.6 Hypokalemia; F41.8 Other specified anxiety disorders; K76.0 Fatty (change of) liver, not elsewhere classified; I10 Essential (primary) hypertension; I25.10 Atherosclerotic heart disease of native coronary artery without angina pectoris; N31.8 Other neuromuscular dysfunction of bladder; R33.9 Retention of urine, unspecified; N40.0 Benign prostatic hyperplasia without lower urinary tract symptoms; G62.9 Polyneuropathy, unspecified; F17.210 Nicotine dependence, cigarettes, uncomplicated; K38.0 Hyperplasia of appendix; K21.9 Gastro-esophageal reflux disease without esophagitis; Z87.11 Personal history of peptic ulcer disease; Z85.01 Personal history of malignant neoplasm of esophagus; Z90.49 Acquired absence of other specified parts of digestive tract; Z85.850 Personal history of malignant neoplasm of thyroid; I25.2 Old myocardial infarction; Z91.19 Patient's noncompliance with other medical treatment and regimen
CPT/HCPCS: 36415; 71250; 74019; 74176; 74177; 80048; 80053; 80202; 81001; 82274; 82607; 82728; 82746; 83540; 83550; 83605; 83735; 84439; 84443; 84480; 85014; 85018; 85025; 85055; 87040; 87338; 93971; 94640; 97110; 97116; 97161; 97165; 97530; 97535; A9270; C9113; J0360; J1650; J2060; J2543; J3370; J3475; J7030; J7040; J7050; Q9957; Q9967

== ENCOUNTER 2020-04-09 17:16 | Inpatient (IN) | payer MEDICARE, SELFPAY ==
--- NOTE | ~2020-04-09 | CT_ITS ---
EXAMINATION: CT abdomen pelvis wo con DATE: 04/19/2020 08:13 INDICATION: Ureteral stone TECHNIQUE: Computed tomography (CT) of the abdomen and pelvis was performed without intravenous contr ast. The dose-length product (DLP) was 315.82 mGy-cm. Automated exposure control and iterative recons truction technique were employed. COMPARISON: 04/06/2020 FINDINGS: Moderate size pleural effusions are unchanged. There is passive atelectasis in the visualiz ed lower lobes. The heart size is normal. The gallbladder is surgically absent. Within the limitation s of noncontrast examination, the liver, spleen, pancreas, and adrenal glands are normal. There is a persistent 5 mm stone at left ureterovesicular junction. There is mild left hydroureteronephrosis, sl ightly improved from the comparison examination. There is a 6 mm nonobstructing stone of the left kid prakash. The right kidney is unremarkable. A small amount of gas is present in the urinary bladder. No pa thologically enlarged abdominal or pelvic lymph nodes are identified. There is no free intraperitonea l gas or evidence of bowel obstruction. Lumbar compression fractures are stable. There is moderate shalonda mbar spondylosis. IMPRESSION: 1. 5 mm stone at the left ureterovesicular junction with slight improvement of now mild left hydroure teronephrosis. 2. Moderate-sized pleural effusions. 3. Nonobstructing left nephrolithiasis. Reviewed, dictated and finalized at location A. HOUSE [employer]EN[employer]AL OPERATOR IMPRESSION: 1. 5 mm stone at the left ureterovesicular junction with slight improvement of now mild left hydroureteronephrosis. 2. Moderate-sized pleural effusions. 3. Nonobstructing left nephrolithiasis.
[2020-04-09 17:29] VITALS: BP 109/97; PULSE 90; RESP 16; TEMP 37.1; O2SAT 97
--- NOTE | 2020-04-09 17:40 | ADMGEN ---
This patient, Calixto Lyons, was admitted to 2nd Floor Room 203-1. Patient/family oriented to hospital policies and general routines including ID bracelet, bed and alarms, visiting hours, pain management, procedures, bathroom and other care routines, personal items, smoking policy, room service/diet, and visiting hours. Information on how to activate the Rapid Response Team has been discussed. Patient/Family are encouraged to report perceived risks to care and to ask questions if they do not understand what they are told or what they should do.
[2020-04-09 17:48] VITALS: BP 109/97; PULSE 90; RESP 16; TEMP 37.1; O2SAT 97
[2020-04-09] MEDS: FLUTICASONE PROPIONATE 0.05% NA SPR 16 GM BTL (*BKC) 2 SPRAY NASAL (21:29)
[2020-04-09] MEDS: APIXABAN 2.5 MG TABLET 10 MG BY MOUTH (21:30)
[2020-04-09] MEDS: chlordiazePOXIDE (*CRX) 10 MG CAPSULE PO (21:30)
[2020-04-09 21:31] VITALS: PULSE 70
[2020-04-09] MEDS: METOPROLOL TARTRATE 50 MG TAB PO (21:31)
[2020-04-09] MEDS: MELATONIN 5 MG TABLET PO (21:37)
[2020-04-09] MEDS: traZODone HCL 50 MG TABLET 100 MG PO (21:37)
[2020-04-10] VITALS (7 sets, daily range): BP systolic 114–126; BP diastolic 70–80; PULSE 72–100; RESP 17–20; TEMP 36.9–37.9; O2SAT 95–99
[2020-04-10] MEDS: METOPROLOL TARTRATE 50 MG TAB PO ×3 (05:32→21:16)
[2020-04-10] MEDS: chlordiazePOXIDE (*CRX) 10 MG CAPSULE PO ×3 (05:32→21:16)
[2020-04-10] MEDS: LEVOTHYROXINE SODIUM 25 MCG TABLET PO (05:32)
[2020-04-10] MEDS: calcitrioL 0.25 MCG CAPSULE 0.5 MCG PO (08:18)
[2020-04-10] MEDS: PANTOPRAZOLE 40 MG TABLET PO (08:18)
[2020-04-10] MEDS: ATORVASTATIN 10 MG TABLET PO (08:18)
[2020-04-10] MEDS: THIAMINE HCL 100 MG TABLET PO (08:19)
[2020-04-10] MEDS: FERROUS SULFATE 324 MG TABLET PO (08:19)
[2020-04-10] MEDS: MAGNESIUM OXIDE 400 MG TABLET PO (08:19)
[2020-04-10] MEDS: amLODIPine BESYLATE 5 MG TABLET PO (08:19)
[2020-04-10] MEDS: FOLIC ACID 1 MG TABLET PO (08:19)
[2020-04-10] MEDS: TAMSULOSIN HCL 0.4 MG CAPSULE PO (08:19)
[2020-04-10] MEDS: APIXABAN 2.5 MG TABLET 10 MG BY MOUTH ×2 (08:19→21:16)
[2020-04-10] MEDS: FINASTERIDE 5 MG TABLET PO (08:20)
--- NOTE | 2020-04-10 10:36 | PM.IMHP ---
H&P: HPI History of Present Illness Date/Time: 04/10/20 10:36 <JIMENA Holguin - Last Filed: 04/10/20 13:30> Chief Complaint: Generalized weakness <JIMENA Holguin - Last Filed: 04/10/20 13:30> Narrative: Calixto Lyons is a 59 year old male that has been admitted to our swing bed for generalized weakness. Patient has a past medical history of UTI, alcohol abuse, anxiety, BPH, chronic anemia, compression fracture, DVT, hypertension, hypothyroidism, major depression, tobacco dependency, peptic ulcer disease, peripheral neuropathy, substance abuse, suicidal ideation, thyroid cancer, MO and esophageal cancer patient was admitted [facility] on 03/26/2020 for chest discomfort to rule out MO, MO ruled out at that time. On 03/29/2020 patient was transferred to [facility] for possible septicemia possibly caused by port, infection blood cultures grew coag negative staph. While patient was at [facility] several specialties were consulted urology was consulted due to a CT finding of hydronephrosis ,oncology was consulted due to patient's history of esophageal cancer, infectious disease was consulted due to possible infection of his port. Neurology was also consulted due to patient altered mental status change. Surgery for possible appendicitis also nephrology was consulted due to patient electrolyte imbalance. Patient was also found to have a DVT in his left leg. While patient was at [facility] infectious disease DC patient's vancomycin due to blood culture being negative x4. Patient admitted in swing bed for rehabilitation due to decreased balance decreased mobility in severe limited function endurant and/or mobility. Patient has no complaints at this time the patient denies SOB, CP, palpitation, extremity numbness, lightheadedness, dizziness, constipation, diarrhea, chills, or fever. He also notes that he no longer has chest discomfort and since Tierney has been placed he does not feel abdominal pressure. Patient states that he did not sleep well overnight he was able to tolerate meals . <JIMENA Holguin - Last Filed: 04/10/20 13:30> Review of Systems Review of Systems: Narrative: 10 point system review <JIMENA Holguin - Last Filed: 04/10/20 13:30> All systems reviewed & are unremarkable except as noted in HPI and below (10 point system review) <JIMENA Holguin - Last Filed: 04/10/20 13:30> [facility], LAT[facility] Past Medical History Medical History: Medical History Abnormal colonoscopy Abnormal EKG Acute hypokalemia Acute UTI Alcohol abuse Anxiety Benign prostatic hyperplasia Chronic anemia Compression fracture Including thoracic and lumbar compression fractures. Deep venous thrombosis Left femoral vein, left internal jugular, and let axillary veins noted on ultrasound in May 2019. Hepatic steatosis Hypertension Hypomagnesemia Hypothyroidism Kidney stones Major depression Nicotine use disorder Peptic ulcer disease Remote history of perforated peptic ulcer status post partial gastrectomy. Peripheral neuropathy Substance abuse Suicidal ideation Thyroid cancer Status post partial thyroidectomy. Previously on levothyroxine. Type 2 MO (myocardial infarction) (~08/2016) No ischemic cardiac evaluation was undertaken. <JIMENA Holguin - Last Filed: 04/10/20 13:30> Surgical History Surgical History: Surgical History H/O esophagogastroduodenoscopy History of cholecystectomy History of hernia repair Multiple ventral hernia repairs including incisional hernia repair, some with mesh. History of partial gastrectomy For perforated peptic ulcer. History of partial thyroidectomy For thyroid cancer. <JIMENA Holguin - Last Filed: 04/10/20 13:30> Family History Family History: Family History (Reviewed 04/07/20 @ 15:09 by Bre Alvarado, APR
[2020-04-10] MEDS: FLUTICASONE PROPIONATE 0.05% NA SPR 16 GM BTL (*BKC) 2 SPRAY NASAL (21:15)
[2020-04-10] MEDS: MELATONIN 5 MG TABLET PO (21:16)
[2020-04-10] MEDS: traZODone HCL 50 MG TABLET 150 MG PO (21:16)
[2020-04-10] MEDS: ACETAMINOPHEN 500 MG TABLET PO (23:34)
[2020-04-11] VITALS (7 sets, daily range): BP systolic 102–113; BP diastolic 64–70; PULSE 70–86; RESP 16–20; TEMP 36.7–37.9; O2SAT 92–98
[2020-04-11] MEDS: LEVOTHYROXINE SODIUM 25 MCG TABLET PO (05:35)
[2020-04-11] MEDS: METOPROLOL TARTRATE 50 MG TAB PO ×3 (05:35→21:03)
[2020-04-11] MEDS: chlordiazePOXIDE (*CRX) 10 MG CAPSULE PO ×3 (05:35→21:03)
[2020-04-11 05:43] LABS: Hematocrit 22.9 % (40.0-54.0); Hemoglobin 7.2 g/dL (14.0-18.0); Mean Corpuscular HGB Conc 31.4 g/dL (32.0-36.0); Mean Corpuscular Hemoglobin 28.7 pg (27.0-31.0); Mean Corpuscular Volume 91.2 fL (78.0-102.0); Mean Platelet Volume 9.7 fl (8.7-11.0); Platelet Count Result 307 K/mm3 (150-420); Red Blood Count 2.51 M/mm3 (4.70-6.10); Red Cell Distribution Width 17.2 % (11.6-14.4); White Blood Count 5.2 K/mm3 (4.8-10.8)
[2020-04-11 05:58] LABS: Alanine Aminotransferase 16 U/L (16-63); Albumin Level 1.8 g/dL (3.4-5.0); Alkaline Phosphatase 46 U/L (46-116); Anion Gap 8 mmol/L (8-16); Aspartate Amino Transferase 12 U/L (15-37); Bilirubin,Total 0.3 mg/dL (0.00-1.00); Blood Urea Nitrogen 7 mg/dL (7-18); Calcium 8.3 mg/dL (8.5-10.1); Carbon Dioxide 27 mmol/L (21-32); Chloride 105 mmol/L (98-108); Estimated Glomerular Filt Rate 59; Glucose 84 mg/dL (70-99); Osmolality Calculated 287 mOsm/kg (285-295); Potassium 3.3 mmol/L (3.5-5.1); Sodium 140 mmol/L (136-145); Total Protein 4.9 g/dL (6.4-8.2)
[2020-04-11] MEDS: APIXABAN 2.5 MG TABLET 10 MG BY MOUTH ×2 (09:53→21:03)
[2020-04-11] MEDS: TAMSULOSIN HCL 0.4 MG CAPSULE PO (09:54)
[2020-04-11] MEDS: FERROUS SULFATE 324 MG TABLET PO (09:54)
[2020-04-11] MEDS: amLODIPine BESYLATE 5 MG TABLET PO (09:54)
[2020-04-11] MEDS: POTASSIUM CHLORIDE 10 MEQ TABLET PO (09:54)
[2020-04-11] MEDS: FOLIC ACID 1 MG TABLET PO (09:54)
[2020-04-11] MEDS: MAGNESIUM OXIDE 400 MG TABLET PO (09:54)
[2020-04-11] MEDS: calcitrioL 0.25 MCG CAPSULE 0.5 MCG PO (09:54)
[2020-04-11] MEDS: ATORVASTATIN 10 MG TABLET PO (09:55)
[2020-04-11] MEDS: FINASTERIDE 5 MG TABLET PO (09:55)
[2020-04-11] MEDS: THIAMINE HCL 100 MG TABLET PO (09:55)
[2020-04-11] MEDS: PANTOPRAZOLE 40 MG TABLET PO (09:55)
[2020-04-11] MEDS: LOPERAMIDE HCL 2 MG CAPSULE PO (10:33)
[2020-04-11] MEDS: ACETAMINOPHEN 500 MG TABLET PO (10:33)
[2020-04-11] MEDS: FLUTICASONE PROPIONATE 0.05% NA SPR 16 GM BTL (*BKC) 2 SPRAY NASAL (21:02)
[2020-04-11] MEDS: MELATONIN 5 MG TABLET PO (21:03)
[2020-04-11] MEDS: traZODone HCL 50 MG TABLET 150 MG PO (21:03)
[2020-04-12] VITALS: BP 115/69; PULSE 74; RESP 20; TEMP 37; O2SAT 95
[2020-04-12 05:44] VITALS: PULSE 78
[2020-04-12] MEDS: LEVOTHYROXINE SODIUM 25 MCG TABLET PO (05:44)
[2020-04-12] MEDS: chlordiazePOXIDE (*CRX) 10 MG CAPSULE PO ×3 (05:44→23:25)
[2020-04-12] MEDS: METOPROLOL TARTRATE 50 MG TAB PO ×3 (05:44→21:47)
[2020-04-12 07:58] VITALS: BP 121/68; PULSE 72; RESP 18; TEMP 37.1; O2SAT 93
[2020-04-12] MEDS: amLODIPine BESYLATE 5 MG TABLET PO (08:19)
[2020-04-12] MEDS: MAGNESIUM OXIDE 400 MG TABLET PO (08:19)
[2020-04-12] MEDS: calcitrioL 0.25 MCG CAPSULE 0.5 MCG PO (08:20)
[2020-04-12] MEDS: POTASSIUM CHLORIDE 10 MEQ TABLET PO (08:20)
[2020-04-12] MEDS: APIXABAN 2.5 MG TABLET 10 MG BY MOUTH ×2 (08:20→20:22)
[2020-04-12] MEDS: FOLIC ACID 1 MG TABLET PO (08:21)
[2020-04-12] MEDS: TAMSULOSIN HCL 0.4 MG CAPSULE PO (08:21)
[2020-04-12] MEDS: THIAMINE HCL 100 MG TABLET PO (08:21)
[2020-04-12] MEDS: FINASTERIDE 5 MG TABLET PO (08:21)
[2020-04-12] MEDS: FERROUS SULFATE 324 MG TABLET PO (08:21)
[2020-04-12] MEDS: PANTOPRAZOLE 40 MG TABLET PO (08:21)
[2020-04-12] MEDS: ATORVASTATIN 10 MG TABLET PO (08:21)
[2020-04-12 13:40] VITALS: PULSE 84
[2020-04-12 15:55] VITALS: BP 99/68; PULSE 78; RESP 18; TEMP 36.6; O2SAT 96
[2020-04-12 21:47] VITALS: PULSE 68
[2020-04-12] MEDS: FLUTICASONE PROPIONATE 0.05% NA SPR 16 GM BTL (*BKC) 2 SPRAY NASAL (22:12)
[2020-04-13] VITALS: BP 117/65; PULSE 90; RESP 16; TEMP 37.6; O2SAT 96
--- NOTE | 2020-04-13 01:20 | PC.NURSE ---
Pt up to the bathroom with standby assist of one. Pt had a large, formed stool and returned to bed with standby assist of one.
[2020-04-13] MEDS: chlordiazePOXIDE (*CRX) 10 MG CAPSULE PO ×3 (06:06→21:30)
[2020-04-13] MEDS: METOPROLOL TARTRATE 50 MG TAB PO ×3 (06:06→21:30)
[2020-04-13 08:00] VITALS: BP 115/83; PULSE 84; RESP 20; TEMP 36.8; O2SAT 94
[2020-04-13] MEDS: amLODIPine BESYLATE 5 MG TABLET PO (09:32)
[2020-04-13] MEDS: POTASSIUM CHLORIDE 10 MEQ TABLET PO (09:32)
[2020-04-13] MEDS: APIXABAN 2.5 MG TABLET 10 MG BY MOUTH ×2 (09:32→21:31)
[2020-04-13] MEDS: FOLIC ACID 1 MG TABLET PO (09:33)
[2020-04-13] MEDS: MAGNESIUM OXIDE 400 MG TABLET PO (09:33)
[2020-04-13] MEDS: FINASTERIDE 5 MG TABLET PO (09:33)
[2020-04-13] MEDS: calcitrioL 0.25 MCG CAPSULE 0.5 MCG PO (09:33)
[2020-04-13] MEDS: PANTOPRAZOLE 40 MG TABLET PO (09:33)
[2020-04-13] MEDS: FERROUS SULFATE 324 MG TABLET PO (09:33)
[2020-04-13] MEDS: ATORVASTATIN 10 MG TABLET PO (09:33)
[2020-04-13] MEDS: TAMSULOSIN HCL 0.4 MG CAPSULE PO (09:34)
[2020-04-13] MEDS: THIAMINE HCL 100 MG TABLET PO (09:34)
[2020-04-13] MEDS: LEVOTHYROXINE SODIUM 25 MCG TABLET PO (09:34)
[2020-04-13 13:58] VITALS: PULSE 85
[2020-04-13 15:42] VITALS: BP 107/71; PULSE 84; RESP 16; TEMP 37; O2SAT 96
[2020-04-13] MEDS: FLUTICASONE PROPIONATE 0.05% NA SPR 16 GM BTL (*BKC) 2 SPRAY NASAL (21:29)
[2020-04-13 21:30] VITALS: PULSE 70
[2020-04-13 23:59] VITALS: BP 119/73; PULSE 82; RESP 18; TEMP 37.3; O2SAT 94
--- NOTE | 2020-04-14 01:56 | PC.NURSE ---
pt sleeping, no evidence of distress noted, call light and belongings within reach
[2020-04-14] MEDS: METOPROLOL TARTRATE 50 MG TAB PO ×3 (05:29→21:15)
[2020-04-14] MEDS: chlordiazePOXIDE (*CRX) 10 MG CAPSULE PO ×3 (05:29→21:15)
[2020-04-14] MEDS: LEVOTHYROXINE SODIUM 25 MCG TABLET PO (05:29)
[2020-04-14 05:40] LABS: Hematocrit 25.4 % (40.0-54.0); Hemoglobin 7.9 g/dL (14.0-18.0); Mean Corpuscular HGB Conc 31.1 g/dL (32.0-36.0); Mean Corpuscular Hemoglobin 28.5 pg (27.0-31.0); Mean Corpuscular Volume 91.7 fL (78.0-102.0); Mean Platelet Volume 9.6 fl (8.7-11.0); Platelet Count Result 365 K/mm3 (150-420); Red Blood Count 2.77 M/mm3 (4.70-6.10); Red Cell Distribution Width 16.6 % (11.6-14.4); White Blood Count 6.2 K/mm3 (4.8-10.8)
[2020-04-14 05:56] LABS: Anion Gap 10 mmol/L (8-16); Blood Urea Nitrogen 8 mg/dL (7-18); Calcium 8.6 mg/dL (8.5-10.1); Carbon Dioxide 28 mmol/L (21-32); Chloride 104 mmol/L (98-108); Estimated Glomerular Filt Rate > 60; Glucose 81 mg/dL (70-99); Osmolality Calculated 291 mOsm/kg (285-295); Potassium 3.3 mmol/L (3.5-5.1); Sodium 142 mmol/L (136-145)
[2020-04-14 07:13] VITALS: PULSE 79; RESP 18; TEMP 37.2; O2SAT 95
[2020-04-14 07:48] LABS: Magnesium 1.2 mg/dL (1.8-2.4)
--- NOTE | 2020-04-14 08:02 | PC.NURSE ---
Patient got self to sitting position, will sit on edge of bed for breakfast, tolerated well, agustin in place and draining well
[2020-04-14] MEDS: POTASSIUM CHLORIDE 10 MEQ TABLET PO (08:22)
[2020-04-14] MEDS: MAGNESIUM OXIDE 400 MG TABLET PO (08:23)
[2020-04-14] MEDS: PANTOPRAZOLE 40 MG TABLET PO (08:23)
[2020-04-14] MEDS: POTASSIUM CHLORIDE 20 MEQ TABLET 40 MEQ PO (08:23)
[2020-04-14] MEDS: THIAMINE HCL 100 MG TABLET PO (08:23)
[2020-04-14] MEDS: FERROUS SULFATE 324 MG TABLET PO (08:23)
[2020-04-14] MEDS: FINASTERIDE 5 MG TABLET PO (08:23)
[2020-04-14] MEDS: ATORVASTATIN 10 MG TABLET PO (08:24)
[2020-04-14] MEDS: APIXABAN 2.5 MG TABLET 10 MG BY MOUTH ×2 (08:24→21:15)
[2020-04-14] MEDS: TAMSULOSIN HCL 0.4 MG CAPSULE PO (08:25)
[2020-04-14] MEDS: calcitrioL 0.25 MCG CAPSULE 0.5 MCG PO (08:25)
[2020-04-14] MEDS: FOLIC ACID 1 MG TABLET PO (08:25)
[2020-04-14] MEDS: amLODIPine BESYLATE 5 MG TABLET PO (08:26)
[2020-04-14] MEDS: MAGNESIUM SULF 4 GM/WATER100ML 4 GM/100 ML BAG IVPB (09:17)
--- NOTE | 2020-04-14 09:20 | PC.NURSE ---
Port to right upper chest accessed and magnesium infusing as ordered, patient reports that therapy said he was doing good, stated maybe he needs to slow down a bit to stay longer, would like to stay for another week, hospitalist at the bedside at this time
--- NOTE | 2020-04-14 10:19 | PM.IMPN ---
Progress Note: A&P Assessment and Plan (1) Anemia: Qualifiers: Anemia type: unspecified type Qualified Code(s): D64.9 - Anemia, unspecified Code(s): D64.9 - Anemia, unspecified Status: Acute Assessment and Plan: 04/14/2020 H/H 7.9/25.4, Continue iron supplement, No active bleeding noted (2) Hypothyroidism: Code(s): E03.9 - Hypothyroidism, unspecified Status: Chronic Assessment and Plan: Continue Synthroid 25 MCG's daily (3) MILTON (acute kidney injury): Code(s): N17.9 - Acute kidney failure, unspecified Status: Acute Assessment and Plan: 04/14/2020 Resolved, Avoid nephrotoxins, Renal dose medication, BUN 8, Cr 1 (4) DVT of upper extremity (deep vein thrombosis): Code(s): I82.629 - Acute embolism and thrombosis of deep veins of unspecified upper extremity Status: Acute Assessment and Plan: 04/14/2020 Continue Eliquis, Imaging indicates Deep vein thrombosis involving the left internal jugular and subclavian veins. (5) Port-A-Cath in place: Code(s): Z95.828 - Presence of other vascular implants and grafts Status: Acute Assessment and Plan: Not believed to be the source of infection (6) ETOHism: Code(s): F10.20 - Alcohol dependence, uncomplicated Status: Acute Assessment and Plan: Continue Librium (7) Electrolyte imbalance: Code(s): E87.8 - Other disorders of electrolyte and fluid balance, not elsewhere classified Status: Acute Assessment and Plan: 04/14/2020 Magnesium 1.2 replaced with 4 gm Magnesium this morning, Potassium 3.3 and replaced with 40 mEq K today. Will recheck tomorrow. Probablu r/t EtOH use (8) Weakness: Code(s): R53.1 - Weakness Status: Acute Assessment and Plan: 04/14/2020 Pt has been working with PT and has been doing well. Pt states that he wants to stay here another week to work with PT (9) BPH (benign prostatic hyperplasia): Code(s): N40.0 - Benign prostatic hyperplasia without lower urinary tract symptoms Status: Acute Assessment and Plan: Continue Proscar (10) GERD (gastroesophageal reflux disease): Code(s): K21.9 - Gastro-esophageal reflux disease without esophagitis Status: Acute Assessment and Plan: Continue Protonix (11) CAD (coronary atherosclerotic disease): Onset Date: Unknown Code(s): I25.10 - Atherosclerotic heart disease of [place] coronary artery without angina pectoris Status: Acute Assessment and Plan: Continue statins (12) Hypertension: Code(s): I10 - Essential (primary) hypertension Status: Acute Assessment and Plan: Continue metoprolol 50 mg (13) 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 Pt can be DC'ed with the Agustin catheter in place and follow up with his PCP/Urologist. Subjective Date/time seen: 04/14/20 10:19 Pt states he is doing well with PT. Pt states that he would like to stay in the hospital for another week. Pt has not had any complaints at this time. Denies pain, SOB, CP, bowel issues. Pt has a agustin catheter in place and should be able to go home with this as he already needs a follow up with his urologist per previous progress notes. Review of Systems Constitutional: Constitutional: Reports no additional constitu
--- NOTE | 2020-04-14 10:33 | PC.NURSE ---
SBA up to bathroom, gait steady, uses walker appropriately, no assistance needed with toileting
--- NOTE | 2020-04-14 11:50 | PC.NURSE ---
Up to chair, used walker and SBA, tolerated well, personal items in reach
[2020-04-14 13:41] VITALS: PULSE 80
[2020-04-14 16:00] VITALS: BP 108/69; PULSE 76; RESP 18; TEMP 36.3; O2SAT 97
[2020-04-14] MEDS: traZODone HCL 50 MG TABLET 150 MG PO (21:14)
[2020-04-14] MEDS: MELATONIN 5 MG TABLET PO (21:15)
[2020-04-14] MEDS: FLUTICASONE PROPIONATE 0.05% NA SPR 16 GM BTL (*BKC) 2 SPRAY NASAL (21:19)
[2020-04-15] VITALS (7 sets, daily range): BP systolic 100–112; BP diastolic 61–72; PULSE 68–88; RESP 16–20; TEMP 36.8–37.3; O2SAT 92–100
[2020-04-15] MEDS: chlordiazePOXIDE (*CRX) 10 MG CAPSULE PO ×3 (06:07→21:14)
[2020-04-15] MEDS: METOPROLOL TARTRATE 50 MG TAB PO ×3 (06:07→21:14)
[2020-04-15] MEDS: LEVOTHYROXINE SODIUM 25 MCG TABLET PO (06:07)
[2020-04-15] MEDS: APIXABAN 2.5 MG TABLET 10 MG BY MOUTH ×2 (08:56→21:13)
[2020-04-15] MEDS: amLODIPine BESYLATE 5 MG TABLET PO (08:57)
[2020-04-15] MEDS: calcitrioL 0.25 MCG CAPSULE 0.5 MCG PO (08:57)
[2020-04-15] MEDS: ATORVASTATIN 10 MG TABLET PO (08:57)
[2020-04-15] MEDS: PANTOPRAZOLE 40 MG TABLET PO (08:57)
[2020-04-15] MEDS: TAMSULOSIN HCL 0.4 MG CAPSULE PO (08:57)
[2020-04-15] MEDS: MAGNESIUM OXIDE 400 MG TABLET PO (08:58)
[2020-04-15] MEDS: FINASTERIDE 5 MG TABLET PO (08:58)
[2020-04-15] MEDS: FERROUS SULFATE 324 MG TABLET PO (08:58)
[2020-04-15] MEDS: FOLIC ACID 1 MG TABLET PO (08:58)
[2020-04-15] MEDS: POTASSIUM CHLORIDE 10 MEQ TABLET PO (08:58)
[2020-04-15] MEDS: THIAMINE HCL 100 MG TABLET PO (08:58)
--- NOTE | 2020-04-15 09:00 | PC.NURSE ---
working with OT at this time, denies needs
--- NOTE | 2020-04-15 12:07 | PC.NURSE ---
patient got himself up to sitting position and sitting on edge of bed for lunch
--- NOTE | 2020-04-15 13:04 | PC.NURSE ---
in bed resting quietly, denies needs, personal items in reach
--- NOTE | 2020-04-15 18:38 | PC.NURSE ---
Patient awake and able to verbalize needs. Cooperative with care. Call light and belongings within reach. No c/o offered.
[2020-04-15] MEDS: traZODone HCL 50 MG TABLET 150 MG PO (21:14)
[2020-04-15] MEDS: MELATONIN 5 MG TABLET PO (21:14)
[2020-04-15] MEDS: FLUTICASONE PROPIONATE 0.05% NA SPR 16 GM BTL (*BKC) 2 SPRAY NASAL (21:36)
[2020-04-16 05:34] VITALS: PULSE 80
[2020-04-16] MEDS: METOPROLOL TARTRATE 50 MG TAB PO ×3 (05:34→22:17)
[2020-04-16] MEDS: LEVOTHYROXINE SODIUM 25 MCG TABLET PO (05:34)
[2020-04-16] MEDS: chlordiazePOXIDE (*CRX) 10 MG CAPSULE PO ×3 (05:34→22:17)
[2020-04-16 05:45] LABS: Hematocrit 21.8 % (40.0-54.0); Mean Corpuscular HGB Conc 31.2 g/dL (32.0-36.0); Mean Corpuscular Hemoglobin 28.6 pg (27.0-31.0); Mean Corpuscular Volume 91.6 fL (78.0-102.0); Mean Platelet Volume 9.9 fl (8.7-11.0); Platelet Count Result 326 K/mm3 (150-420); Red Blood Count 2.38 M/mm3 (4.70-6.10); Red Cell Distribution Width 16.6 % (11.6-14.4)
[2020-04-16 06:00] LABS: Hemoglobin 6.8 g/dL (14.0-18.0)
[2020-04-16 06:01] LABS: Anion Gap 7 mmol/L (8-16); Blood Urea Nitrogen 10 mg/dL (7-18); Calcium 8.5 mg/dL (8.5-10.1); Carbon Dioxide 27 mmol/L (21-32); Chloride 107 mmol/L (98-108); Estimated Glomerular Filt Rate > 60; Glucose 85 mg/dL (70-99); Magnesium 1.3 mg/dL (1.8-2.4); Osmolality Calculated 290 mOsm/kg (285-295); Potassium 3.9 mmol/L (3.5-5.1); Sodium 141 mmol/L (136-145)
[2020-04-16 06:22] LABS: Hematocrit 22.5 % (40.0-54.0); Hemoglobin 7.1 g/dL (14.0-18.0)
--- NOTE | 2020-04-16 06:29 | PC.NURSE ---
Dr Mendoza called and report given of hgb redraw result of 7.1, no new orders at this time
[2020-04-16 08:00] VITALS: BP 108/64; PULSE 78; RESP 18; TEMP 36.8; O2SAT 98
[2020-04-16] MEDS: calcitrioL 0.25 MCG CAPSULE 0.5 MCG PO (08:57)
[2020-04-16] MEDS: POTASSIUM CHLORIDE 10 MEQ TABLET PO (08:58)
[2020-04-16] MEDS: THIAMINE HCL 100 MG TABLET PO (08:58)
[2020-04-16] MEDS: FOLIC ACID 1 MG TABLET PO (08:58)
[2020-04-16] MEDS: amLODIPine BESYLATE 5 MG TABLET PO (08:58)
[2020-04-16] MEDS: FERROUS SULFATE 324 MG TABLET PO (08:58)
[2020-04-16] MEDS: MAGNESIUM OXIDE 400 MG TABLET PO (08:58)
[2020-04-16] MEDS: ATORVASTATIN 10 MG TABLET PO (08:58)
[2020-04-16] MEDS: APIXABAN 2.5 MG TABLET 10 MG BY MOUTH ×2 (08:58→22:17)
[2020-04-16] MEDS: PANTOPRAZOLE 40 MG TABLET PO (08:58)
[2020-04-16] MEDS: FINASTERIDE 5 MG TABLET PO (08:58)
[2020-04-16] MEDS: TAMSULOSIN HCL 0.4 MG CAPSULE PO (08:58)
[2020-04-16] MEDS: MAGNESIUM SULF 4 GM/WATER100ML 4 GM/100 ML BAG IVPB (09:44)
[2020-04-16 10:54] LABS: INR 1.3; Prothrombin Time 13.5 Seconds (9.50-12.10)
[2020-04-16 14:28] VITALS: PULSE 68
[2020-04-16 16:00] VITALS: BP 110/71; PULSE 78; RESP 16; TEMP 37; O2SAT 98
[2020-04-16 22:17] VITALS: PULSE 78
[2020-04-16] MEDS: FLUTICASONE PROPIONATE 0.05% NA SPR 16 GM BTL (*BKC) 2 SPRAY NASAL (22:17)
[2020-04-17] VITALS: BP 108/67; PULSE 78; RESP 18; TEMP 36.5; O2SAT 94
--- NOTE | 2020-04-17 04:27 | PC.NURSE ---
Grinder Set Up Operator [employer] Tool collected stool and sent to lab for testing, occult blood. Awaiting results.
[2020-04-17 05:34] LABS: Hematocrit 24.5 % (40.0-54.0); Hemoglobin 7.6 g/dL (14.0-18.0); Mean Corpuscular Hemoglobin 27.9 pg (27.0-31.0); Mean Corpuscular Volume 90.1 fL (78.0-102.0); Mean Platelet Volume 9.7 fl (8.7-11.0); Platelet Count Result 365 K/mm3 (150-420); Red Blood Count 2.72 M/mm3 (4.70-6.10); Red Cell Distribution Width 16.2 % (11.6-14.4); White Blood Count 6.8 K/mm3 (4.8-10.8)
[2020-04-17 05:39] LABS: Occult Blood Negative (Negative)
[2020-04-17 05:45] LABS: Anion Gap 6 mmol/L (8-16); Blood Urea Nitrogen 10 mg/dL (7-18); Calcium 8.4 mg/dL (8.5-10.1); Carbon Dioxide 29 mmol/L (21-32); Chloride 105 mmol/L (98-108); Estimated Glomerular Filt Rate > 60; Glucose 84 mg/dL (70-99); Magnesium 1.5 mg/dL (1.8-2.4); Osmolality Calculated 288 mOsm/kg (285-295); Potassium 3.6 mmol/L (3.5-5.1); Sodium 140 mmol/L (136-145)
[2020-04-17 06:00] VITALS: PULSE 76
[2020-04-17] MEDS: chlordiazePOXIDE (*CRX) 10 MG CAPSULE PO ×3 (06:00→21:50)
[2020-04-17] MEDS: LEVOTHYROXINE SODIUM 25 MCG TABLET PO (06:00)
[2020-04-17] MEDS: METOPROLOL TARTRATE 50 MG TAB PO ×3 (06:00→21:50)
[2020-04-17 08:00] VITALS: BP 120/72; PULSE 78; RESP 20; TEMP 36.4; O2SAT 96
[2020-04-17] MEDS: APIXABAN 2.5 MG TABLET 10 MG BY MOUTH ×2 (09:48→20:27)
[2020-04-17] MEDS: PANTOPRAZOLE 40 MG TABLET PO (09:48)
[2020-04-17] MEDS: ATORVASTATIN 10 MG TABLET PO (09:48)
[2020-04-17] MEDS: FERROUS SULFATE 324 MG TABLET PO (09:48)
[2020-04-17] MEDS: MAGNESIUM OXIDE 400 MG TABLET PO ×2 (09:48→17:00)
[2020-04-17] MEDS: calcitrioL 0.25 MCG CAPSULE 0.5 MCG PO (09:48)
[2020-04-17] MEDS: FOLIC ACID 1 MG TABLET PO (09:48)
[2020-04-17] MEDS: POTASSIUM CHLORIDE 10 MEQ TABLET PO (09:48)
[2020-04-17] MEDS: TAMSULOSIN HCL 0.4 MG CAPSULE PO (09:49)
[2020-04-17] MEDS: FINASTERIDE 5 MG TABLET PO (09:49)
[2020-04-17] MEDS: amLODIPine BESYLATE 5 MG TABLET PO (09:49)
[2020-04-17] MEDS: THIAMINE HCL 100 MG TABLET PO (09:49)
--- NOTE | 2020-04-17 13:42 | PC.NURSE ---
called to room. patient handed this nurse a 50 dollar bill to give to daughter when she in front. he claims this is for Clothes his daughter is buying at local [employer]. frontdesk aware to let us know when daughter shows. torin irving
--- NOTE | 2020-04-17 14:02 | PC.NURSE ---
Daughter, Shannan, given 50 dollar bill and exchanged for bag of clothes. clothes given to patient. torin irving
[2020-04-17 16:00] VITALS: BP 116/70; PULSE 82; RESP 18; TEMP 37; O2SAT 98
[2020-04-17 16:42] VITALS: PULSE 82
[2020-04-17] MEDS: FLUTICASONE PROPIONATE 0.05% NA SPR 16 GM BTL (*BKC) 2 SPRAY NASAL (21:18)
[2020-04-17] MEDS: traZODone HCL 50 MG TABLET 150 MG PO (21:55)
[2020-04-18] VITALS: BP 135/82; PULSE 86; RESP 18; TEMP 36.8; O2SAT 94
[2020-04-18] MEDS: METOPROLOL TARTRATE 50 MG TAB PO ×3 (06:01→21:32)
[2020-04-18] MEDS: chlordiazePOXIDE (*CRX) 10 MG CAPSULE PO ×3 (06:01→21:32)
[2020-04-18] MEDS: LEVOTHYROXINE SODIUM 25 MCG TABLET PO (06:06)
[2020-04-18 07:25] VITALS: BP 133/78; PULSE 82; RESP 18; TEMP 37; O2SAT 94
[2020-04-18] MEDS: TAMSULOSIN HCL 0.4 MG CAPSULE PO (09:27)
[2020-04-18] MEDS: APIXABAN 2.5 MG TABLET 10 MG BY MOUTH ×2 (09:27→21:31)
[2020-04-18] MEDS: calcitrioL 0.25 MCG CAPSULE 0.5 MCG PO (09:27)
[2020-04-18] MEDS: FERROUS SULFATE 324 MG TABLET PO (09:27)
[2020-04-18] MEDS: FINASTERIDE 5 MG TABLET PO (09:27)
[2020-04-18] MEDS: MAGNESIUM OXIDE 400 MG TABLET PO ×2 (09:27→16:57)
[2020-04-18] MEDS: POTASSIUM CHLORIDE 10 MEQ TABLET PO (09:28)
[2020-04-18] MEDS: ATORVASTATIN 10 MG TABLET PO (09:28)
[2020-04-18] MEDS: PANTOPRAZOLE 40 MG TABLET PO (09:28)
[2020-04-18] MEDS: FOLIC ACID 1 MG TABLET PO (09:28)
[2020-04-18] MEDS: amLODIPine BESYLATE 5 MG TABLET PO (09:28)
[2020-04-18] MEDS: THIAMINE HCL 100 MG TABLET PO (09:28)
[2020-04-18 14:05] VITALS: PULSE 84
[2020-04-18 16:00] VITALS: BP 118/78; PULSE 76; RESP 18; TEMP 37.2; O2SAT 95
[2020-04-18 21:32] VITALS: PULSE 72
[2020-04-18] MEDS: FLUTICASONE PROPIONATE 0.05% NA SPR 16 GM BTL (*BKC) 2 SPRAY NASAL (21:32)
[2020-04-19] VITALS (7 sets, daily range): BP systolic 108–126; BP diastolic 44–82; PULSE 65–76; RESP 16–18; TEMP 36.6–36.9; O2SAT 93–97
[2020-04-19] MEDS: chlordiazePOXIDE (*CRX) 10 MG CAPSULE PO ×3 (05:52→21:17)
[2020-04-19] MEDS: METOPROLOL TARTRATE 50 MG TAB PO ×3 (05:52→21:17)
[2020-04-19] MEDS: LEVOTHYROXINE SODIUM 25 MCG TABLET PO (05:52)
--- NOTE | 2020-04-19 06:16 | PC.NURSE ---
Patient agustin catheter removed. No ASE. No trauma noted. patient provided a urinal and told to notify nurse if he voids.
[2020-04-19] MEDS: POTASSIUM CHLORIDE 10 MEQ TABLET PO (09:34)
[2020-04-19] MEDS: calcitrioL 0.25 MCG CAPSULE 0.5 MCG PO (09:34)
[2020-04-19] MEDS: MAGNESIUM OXIDE 400 MG TABLET PO ×2 (09:34→16:58)
[2020-04-19] MEDS: THIAMINE HCL 100 MG TABLET PO (09:35)
[2020-04-19] MEDS: PANTOPRAZOLE 40 MG TABLET PO (09:35)
[2020-04-19] MEDS: APIXABAN 2.5 MG TABLET 10 MG BY MOUTH ×2 (09:35→21:16)
[2020-04-19] MEDS: ATORVASTATIN 10 MG TABLET PO (09:35)
[2020-04-19] MEDS: TAMSULOSIN HCL 0.4 MG CAPSULE PO (09:35)
[2020-04-19] MEDS: FERROUS SULFATE 324 MG TABLET PO (09:35)
[2020-04-19] MEDS: amLODIPine BESYLATE 5 MG TABLET PO (09:35)
[2020-04-19] MEDS: FOLIC ACID 1 MG TABLET PO (09:35)
[2020-04-19] MEDS: FINASTERIDE 5 MG TABLET PO (09:35)
--- NOTE | 2020-04-19 11:30 | PC.NURSE ---
Patient called to report he voided. 25mL emptied from urinal. Bladder scan performed- 379 residual found. Tierney catheter reinserted. #16Fr with 10mL balloon. Immediate return of 350mL clear yellow urine. Sta lock placed to left thigh and tubing secured.
--- NOTE | 2020-04-19 18:02 | PC.NURSE ---
Emptied own agustin bag, did well, ate well for dinner, roel needs
[2020-04-19] MEDS: MELATONIN 5 MG TABLET PO (21:17)
[2020-04-19] MEDS: traZODone HCL 50 MG TABLET 150 MG PO (21:17)
[2020-04-19] MEDS: FLUTICASONE PROPIONATE 0.05% NA SPR 16 GM BTL (*BKC) 2 SPRAY NASAL (21:18)
--- NOTE | 2020-04-19 21:58 | PC.NURSE ---
Patient emptied his agustin catheter correctly while nurse stood by.
[2020-04-20] MEDS: chlordiazePOXIDE (*CRX) 10 MG CAPSULE PO ×2 (05:39→14:42)
[2020-04-20] MEDS: LEVOTHYROXINE SODIUM 25 MCG TABLET PO (05:39)
[2020-04-20 05:40] VITALS: PULSE 78
[2020-04-20] MEDS: METOPROLOL TARTRATE 50 MG TAB PO ×2 (05:40→14:42)
[2020-04-20 07:50] VITALS: BP 100/68; PULSE 74; RESP 18; TEMP 36.9; O2SAT 95
[2020-04-20 08:30] LABS: Hematocrit 23.2 % (40.0-54.0); Hemoglobin 7.3 g/dL (14.0-18.0); Mean Corpuscular HGB Conc 31.5 g/dL (32.0-36.0); Mean Corpuscular Hemoglobin 28.7 pg (27.0-31.0); Mean Corpuscular Volume 91.3 fL (78.0-102.0); Mean Platelet Volume 9.7 fl (8.7-11.0); Platelet Count Result 308 K/mm3 (150-420); Red Blood Count 2.54 M/mm3 (4.70-6.10); Red Cell Distribution Width 15.9 % (11.6-14.4); White Blood Count 5.9 K/mm3 (4.8-10.8)
[2020-04-20 08:51] LABS: Alanine Aminotransferase 9 U/L (16-63); Alkaline Phosphatase 53 U/L (46-116); Anion Gap 5 mmol/L (8-16); Aspartate Amino Transferase < 10 U/L (15-37); Bilirubin,Total 0.3 mg/dL (0.00-1.00); Blood Urea Nitrogen 9 mg/dL (7-18); Calcium 8.1 mg/dL (8.5-10.1); Carbon Dioxide 30 mmol/L (21-32); Chloride 105 mmol/L (98-108); Estimated Glomerular Filt Rate > 60; Glucose 89 mg/dL (70-99); Osmolality Calculated 287 mOsm/kg (285-295); Potassium 3.8 mmol/L (3.5-5.1); Sodium 140 mmol/L (136-145); Total Protein 5.1 g/dL (6.4-8.2)
[2020-04-20 08:53] LABS: Magnesium 1.4 mg/dL (1.8-2.4)
[2020-04-20] MEDS: MAGNESIUM OXIDE 400 MG TABLET PO ×2 (09:47→10:59)
[2020-04-20] MEDS: FOLIC ACID 1 MG TABLET PO (09:48)
[2020-04-20] MEDS: TAMSULOSIN HCL 0.4 MG CAPSULE PO (09:48)
[2020-04-20] MEDS: APIXABAN 2.5 MG TABLET 10 MG BY MOUTH (09:48)
[2020-04-20] MEDS: THIAMINE HCL 100 MG TABLET PO (09:48)
[2020-04-20] MEDS: calcitrioL 0.25 MCG CAPSULE 0.5 MCG PO (09:48)
[2020-04-20] MEDS: POTASSIUM CHLORIDE 10 MEQ TABLET PO (09:48)
[2020-04-20] MEDS: FINASTERIDE 5 MG TABLET PO (09:48)
[2020-04-20] MEDS: ATORVASTATIN 10 MG TABLET PO (09:49)
[2020-04-20] MEDS: amLODIPine BESYLATE 5 MG TABLET PO (09:49)
[2020-04-20] MEDS: FERROUS SULFATE 324 MG TABLET PO (09:49)
[2020-04-20] MEDS: PANTOPRAZOLE 40 MG TABLET PO (09:49)
--- NOTE | 2020-04-20 11:30 | P.DS_ITS ---
DS: Admitting Diagnosis Admitting Diagnosis Admitting Diagnosis: Generalized weakness, physical decondition <Kenton Burris CANS VACUUM TESTER-C - Last Filed: 04/20/20 11:39> DS: Discharge Diagnosis Discharge Diagnosis (1) Anemia: Qualifiers: Anemia type: unspecified type Qualified Code(s): D64.9 - Anemia, unspecified <Kenton Burris CANS VACUUM TESTER-C - Last Filed: 04/20/20 11:39> Code(s): D64.9 - Anemia, unspecified <Kenton Burris CANS VACUUM TESTER-C - Last Filed: 04/20/20 11:39> Status: Acute <Kenton Burris CANS VACUUM TESTER-C - Last Filed: 04/20/20 11:39> Assessment and Plan: * Hemoglobin at baseline * Possibly secondary to alcoholism * Continue iron supplement * No active bleeding noted <Kenton BurrisKINGA-C - Last Filed: 04/20/20 11:39> (2) Hypothyroidism: Code(s): E03.9 - Hypothyroidism, unspecified <Kenton Burris CANS VACUUM TESTER-C - Last Filed: 04/20/20 11:39> Status: Chronic <Kenton BurrisKINGA-C - Last Filed: 04/20/20 11:39> Assessment and Plan: * Continue Synthroid 25 MCG's daily <Kenton BraggKINGA Sosa-C - Last Filed: 04/20/20 11:39> (3) MILTON (acute kidney injury): Code(s): N17.9 - Acute kidney failure, unspecified <Kenton BraggMarcelina Dayton CANS VACUUM TESTER-C - Last Filed: 04/20/20 11:39> Status: Acute <Kenton Burris CANS VACUUM TESTER-C - Last Filed: 04/20/20 11:39> Assessment and Plan: * Resolved * Possibly secondary to obstruction <Kenton BraggKINGA Sosa-C - Last Filed: 04/20/20 11:39> (4) DVT of upper extremity (deep vein thrombosis): Code(s): I82.629 - Acute embolism and thrombosis of deep veins of unspecified upper extremity <Yassinekhai YemiTORO SosaP-C - Last Filed: 04/20/20 11:39> Status: Acute <JIMENA Holguin - Last Filed: 04/20/20 11:39> Assessment and Plan: * Continue Eliquis * Imaging indicates Deep vein thrombosis involving the left internal jugular and subclavian veins. <JIMENA Holguin - Last Filed: 04/20/20 11:39> (5) Port-A-Cath in place: Code(s): Z95.828 - Presence of other vascular implants and grafts <Kenton Burris JIMENA - Last Filed: 04/20/20 11:39> Status: Acute <JIMENA Holguin - Last Filed: 04/20/20 11:39> Assessment and Plan: * Not believed to be the source of infection <KELLY Holguin - Last Filed: 04/20/20 11:39> (6) ETOHism: Code(s): F10.20 - Alcohol dependence, uncomplicated <Kenton Burris JIMENA - Last Filed: 04/20/20 11:39> Status: Acute <JIMENA Holguin - Last Filed: 04/20/20 11:39> Assessment and Plan: * Continue Librium <JIMENA Holguin - Last Filed: 04/20/20 11:39> (7) Electrolyte imbalance: Code(s): E87.8 - Other disorders of electrolyte and fluid balance, not elsewhere classified <Kenton Burris JIMENA - Last Filed: 04/20/20 11:39> Status: Acute <Kenton Burris JIMENA - Last Filed: 04/20/20 11:39> Assessment and Plan: * Continue magnesium supplement for 10 days * Believed to be associated with chronic alcoholism <Kenton Burris JIMENA - Last Filed: 04/20/20 11:39> (8) Weakness: Code(s): R53.1 - Weakness <Kenton Burris JIMENA - Last Filed: 04/20/20 11:39> Status: Acute <Kenton Burris JIMNEA - Last Filed: 04/20/20 11:39> Assessment and Plan: ? Patient will discharge with home health <KINGA Holguin-Mari - Last Filed: 04/20/20 11:39> (9) BPH (benign prostatic hyperplasia): Code(s): N40.0 - Tyler
--- NOTE | 2020-04-20 11:30 | PM.DS ---
DS: Admitting Diagnosis Admitting Diagnosis Admitting Diagnosis: Generalized weakness, physical decondition <Yassinekhai YemiKINGA Sosa-C - Last Filed: 04/20/20 11:39> DS: Discharge Diagnosis Discharge Diagnosis (1) Anemia: Qualifiers: Anemia type: unspecified type Qualified Code(s): D64.9 - Anemia, unspecified <Kenton BraggTORO SosaP-C - Last Filed: 04/20/20 11:39> Code(s): D64.9 - Anemia, unspecified <Kenton BraggMarcelina Burris ANIMAL CARE GIVER-C - Last Filed: 04/20/20 11:39> Status: Acute <Kenton BraggTORO SosaP-C - Last Filed: 04/20/20 11:39> Assessment and Plan: Hemoglobin at baseline Possibly secondary to alcoholism Continue iron supplement No active bleeding noted <KINGA Holguin-C - Last Filed: 04/20/20 11:39> (2) Hypothyroidism: Code(s): E03.9 - Hypothyroidism, unspecified <Kenton YemiKINGA Sosa-C - Last Filed: 04/20/20 11:39> Status: Chronic <Yassinekhai YemiTORO SosaP-C - Last Filed: 04/20/20 11:39> Assessment and Plan: Continue Synthroid 25 MCG's daily <KINGA Holguin-C - Last Filed: 04/20/20 11:39> (3) MILTON (acute kidney injury): Code(s): N17.9 - Acute kidney failure, unspecified <TORO HolguinP-C - Last Filed: 04/20/20 11:39> Status: Acute <Kenton YemiTORO SosaP-C - Last Filed: 04/20/20 11:39> Assessment and Plan: Resolved Possibly secondary to obstruction <TORO HolguinP-C - Last Filed: 04/20/20 11:39> (4) DVT of upper extremity (deep vein thrombosis): Code(s): I82.629 - Acute embolism and thrombosis of deep veins of unspecified upper extremity <TORO HolguinP-C - Last Filed: 04/20/20 11:39> Status: Acute <JIMENA Holguin - Last Filed: 04/20/20 11:39> Assessment and Plan: Continue Eliquis Imaging indicates Deep vein thrombosis involving the left internal jugular and subclavian veins. <Kenton YemiJIMENA Sosa - Last Filed: 04/20/20 11:39> (5) Port-A-Cath in place: Code(s): Z95.828 - Presence of other vascular implants and grafts <JIMENA Holguin - Last Filed: 04/20/20 11:39> Status: Acute <Yassinekhai BraggJIMENA Sosa - Last Filed: 04/20/20 11:39> Assessment and Plan: Not believed to be the source of infection <JIMENA Holguin - Last Filed: 04/20/20 11:39> (6) ETOHism: Code(s): F10.20 - Alcohol dependence, uncomplicated <JIMENA Holguin - Last Filed: 04/20/20 11:39> Status: Acute <Kenton YemiJIMENA Sosa - Last Filed: 04/20/20 11:39> Assessment and Plan: Continue Librium <JIMENA Holguin - Last Filed: 04/20/20 11:39> (7) Electrolyte imbalance: Code(s): E87.8 - Other disorders of electrolyte and fluid balance, not elsewhere classified <JIMENA Holguin - Last Filed: 04/20/20 11:39> Status: Acute <JIMENA Holguin - Last Filed: 04/20/20 11:39> Assessment and Plan: Continue magnesium supplement for 10 days Believed to be associated with chronic alcoholism <JIMENA Holguin - Last Filed: 04/20/20 11:39> (8) Weakness: Code(s): R53.1 - Weakness <JIMENA Holguin - Last Filed: 04/20/20 11:39> Status: Acute <JIMENA Holguin - Last Filed: 04/20/20 11:39> Assessment and Plan: ? Patient will discharge with home health <JIMENA Holguin - Last Filed: 04/20/20 11:39> (9) BPH (benign prostatic hyperplasia): Code(s): N40.0 - Benign prostatic hyperplasia without lower urinary tract symptoms <JIMENA Holguin - Last Filed: 04/20/20 11:39> Status: Acute <JIMENA Holguin - Last Filed: 04/20/20 11:39> Assessment and Plan: Continue Proscar Patient was discharged with a Tierney he will follow up with urology. Attempting about voiding trial on 04/19/2020.
[2020-04-20 14:42] VITALS: PULSE 78
--- NOTE | 2020-04-20 15:37 | PC.NURSE ---
Discharge instructions explained to patient, he verbalizes understanding. Taken from floor per wheelchair, daughter picking up patient to transport home.
--- NOTE | 2020-04-22 14:17 | PC.NURSE ---
Pt states he received and understood his discharge instructions. He has no other comments.
== END 2020-04-20 15:25 | disposition home health service (06) | DRG 948 ==
PROVIDERS: Emergency Medicine; Nurse Practitioner; Nurse Practitioner Family; Admitting Provider Emergency Medicine; PCP Internal Medicine; Visit Provider Emergency Medicine
DX: R53.1 Weakness (principal); I82.512 Chronic embolism and thrombosis of left femoral vein; I82.C22 Chronic embolism and thrombosis of left internal jugular vein; I82.A22 Chronic embolism and thrombosis of left axillary vein; C15.4 Malignant neoplasm of middle third of esophagus; N13.2 Hydronephrosis with renal and ureteral calculous obstruction; I10 Essential (primary) hypertension; I25.10 Atherosclerotic heart disease of native coronary artery without angina pectoris; D64.9 Anemia, unspecified; E83.42 Hypomagnesemia; E89.0 Postprocedural hypothyroidism; K27.9 Peptic ulcer, site unspecified, unspecified as acute or chronic, without hemorrhage or perforation; K76.0 Fatty (change of) liver, not elsewhere classified; K21.9 Gastro-esophageal reflux disease without esophagitis; G62.9 Polyneuropathy, unspecified; N40.0 Benign prostatic hyperplasia without lower urinary tract symptoms; F10.20 Alcohol dependence, uncomplicated; F41.9 Anxiety disorder, unspecified; F32.9 Major depressive disorder, single episode, unspecified; F17.210 Nicotine dependence, cigarettes, uncomplicated; Z85.850 Personal history of malignant neoplasm of thyroid; I25.2 Old myocardial infarction; Z95.828 Presence of other vascular implants and grafts; Z90.49 Acquired absence of other specified parts of digestive tract
CPT/HCPCS: 36415; 74176; 80048; 80053; 82272; 83735; 85014; 85018; 85027; 85610; 97110; 97161; 97165; 97530; 97535; A9270; J3475

== ENCOUNTER 2020-05-12 14:40 | Outpatient (CLI) | payer MEDICARE, SELFPAY ==
[2020-05-12 14:55] LABS: Basophils Absolute Auto 0.08 K/mm3 (0.00-0.10); Basophils Percent Auto 0.7 % (0.0-1.0); Eosinophils Absolute Auto 0.01 K/mm3 (0.02-0.50); Eosinophils Percent Auto 0.1 % (1.0-6.0); Hemoglobin 11.1 g/dL (14.0-18.0); Immature Granulocyte Absolute 0.04 K/mm3 (0.00-0.00); Immature Granulocyte Percent A 0.4 % (0.0-0.0); Lymphocytes Absolute Auto 1.09 K/mm3 (1.10-4.50); Lymphocytes Percent Auto 10.2 % (18.0-42.0); Mean Corpuscular HGB Conc 32.6 g/dL (32.0-36.0); Mean Corpuscular Hemoglobin 28.6 pg (27.0-31.0); Mean Corpuscular Volume 87.6 fL (78.0-102.0); Mean Platelet Volume 8.9 fl (8.7-11.0); Monocytes Absolute Auto 0.92 K/mm3 (0.10-0.90); Monocytes Percent Auto 8.6 % (2.0-11.0); Neutrophils Absolute Auto 8.5 K/mm3 (1.7-7.2); Platelet Count Result 384 K/mm3 (150-420); Red Blood Count 3.88 M/mm3 (4.70-6.10); Red Cell Distribution Width 15.4 % (11.6-14.4); White Blood Count 10.7 K/mm3 (4.8-10.8)
[2020-05-12 15:24] LABS: Iron 65 ug/dL (65-175)
[2020-05-12 15:25] LABS: Percent Iron Saturation 33 % (12-57)
[2020-05-12 15:44] LABS: Alanine Aminotransferase 9 U/L (16-63); Albumin Level 2.9 g/dL (3.4-5.0); Alkaline Phosphatase 83 U/L (46-116); Ammonia < 10 umol/L (11-32); Anion Gap 19 mmol/L (8-16); Aspartate Amino Transferase < 10 U/L (15-37); Bilirubin,Total 0.6 mg/dL (0.00-1.00); Blood Urea Nitrogen 16 mg/dL (7-18); Calcium 8.1 mg/dL (8.5-10.1); Carbon Dioxide 16 mmol/L (21-32); Chloride 97 mmol/L (98-108); Cholesterol 122 mg/dL (0-200); Estimated Glomerular Filt Rate > 60; Ferritin 381 ng/mL (26-388); Free T3 1.21 pg/mL (2.18-3.98); Free T4 Free Thyroxine 1.15 ng/dL (0.76-1.46); GGT 34 U/L (15-85); Glucose 122 mg/dL (70-99); HDL Direct 81 mg/dL (40-60); LDL Cholesterol Calculated 26 mg/dL (<130); Osmolality Calculated 276 mOsm/kg (285-295); Potassium 3.8 mmol/L (3.5-5.1); Sodium 132 mmol/L (136-145); Thyroid Stimulating Hormone 2.77 uIU/mL (0.36-3.74); Total Protein 6.6 g/dL (6.4-8.2); Triglycerides 73 mg/dL (0-150); Vitamin B12 331 pg/mL (193-986)
== END 2020-05-12 14:41 | disposition home or self-care (01) ==
LOC: CHSLAB 14:41
PROVIDERS: PCP Internal Medicine; Visit Provider Internal Medicine
DX: D50.9 Iron deficiency anemia, unspecified (principal); F10.180 Alcohol abuse with alcohol-induced anxiety disorder; G62.9 Polyneuropathy, unspecified; E78.2 Mixed hyperlipidemia; R53.83 Other fatigue
CPT/HCPCS: 36415; 80053; 80061; 82140; 82607; 82728; 82977; 83540; 83550; 84439; 84443; 84481; 85025

== ENCOUNTER 2020-05-17 23:41 | Observation (INO) | payer MEDICARE, MEDICAID, SELFPAY ==
--- NOTE | ~2020-05-17 | XR_ITS ---
EXAMINATION: XR chest 2V DATE: 05/18/2020 00:29 INDICATION: Weakness TECHNIQUE: AP and lateral views of the chest are obtained. COMPARISON: 03/26/2020 FINDINGS: A right internal jugular Port-A-Cath ends with its tip in the proximal right atrium. There are small pleural effusions. Minimal airspace opacities are present in the lung bases. There is no pn eumothorax. The heart size is normal. 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 There is a stable compression fracture of the T8 vertebral body. IMPRESSION: 1. Small pleural effusions. 2. Mild atelectasis of the lung bases. Reviewed, dictated and finalized at location A. RINTENDENT QUARRY
--- NOTE | 2020-05-17 23:46 | ECG_ITS ---
SINUS TACHYCARDIA EARLY PRECORDIAL R/S TRANSITION MINIMAL Q WAVES- ANTEROLAT/INF LEADS BORDERLINE ECG Electronically Signed On 05-18-2020 8:51:20 DENTAL CREAM MAKER by Cruz Pickard D.O. COMPARED TO ECG 03/27/2020 07:53:07 SINUS TACHYCARDIA NOW PRESENT MTDD
[2020-05-17 23:50] VITALS: BP 109/69; PULSE 74; RESP 20; TEMP 36.6; O2SAT 97
[2020-05-18 00:13] LABS: Basophils Absolute Auto 0.09 K/mm3 (0.00-0.10); Eosinophils Absolute Auto 0.16 K/mm3 (0.02-0.50); Eosinophils Percent Auto 1.7 % (1.0-6.0); Hematocrit 40.9 % (40.0-54.0); Hemoglobin 13.1 g/dL (14.0-18.0); Immature Granulocyte Absolute 0.04 K/mm3 (0.00-0.00); Immature Granulocyte Percent A 0.4 % (0.0-0.0); Lymphocytes Absolute Auto 1.63 K/mm3 (1.10-4.50); Lymphocytes Percent Auto 17.4 % (18.0-42.0); Mean Corpuscular Hemoglobin 28.1 pg (27.0-31.0); Mean Corpuscular Volume 87.8 fL (78.0-102.0); Mean Platelet Volume 8.9 fl (8.7-11.0); Monocytes Absolute Auto 0.48 K/mm3 (0.10-0.90); Monocytes Percent Auto 5.1 % (2.0-11.0); Neutrophils Percent Auto 74.4 % (50.0-70.0); Platelet Count Result 242 K/mm3 (150-420); Red Blood Count 4.66 M/mm3 (4.70-6.10); Red Cell Distribution Width 15.9 % (11.6-14.4); White Blood Count 9.4 K/mm3 (4.8-10.8)
[2020-05-18] MEDS: THIAMINE HCL INJ 100 MG, FOLIC ACID INJ 1 MG, MULTIVITAMINS-12 INJ VIAL 1 5 ML, MULTIVI... 250 MG IV CONT (00:35)
[2020-05-18 00:36] LABS: Alanine Aminotransferase 16 U/L (16-63); Albumin Level 2.9 g/dL (3.4-5.0); Alkaline Phosphatase 105 U/L (46-116); Anion Gap 14 mmol/L (8-16); Aspartate Amino Transferase 43 U/L (15-37); Bilirubin,Total 0.9 mg/dL (0.00-1.00); Blood Urea Nitrogen 16 mg/dL (7-18); Calcium 7.8 mg/dL (8.5-10.1); Carbon Dioxide 25 mmol/L (21-32); Chloride 100 mmol/L (98-108); Estimated CRCL calculation 86 ml/min; Estimated Glomerular Filt Rate > 60; Glucose 55 mg/dL (70-99); Osmolality Calculated 287 mOsm/kg (285-295); Potassium 3.7 mmol/L (3.5-5.1); Salicylate 3.9 mg/dL (2.8-20.0); Sodium 139 mmol/L (136-145); Total Protein 6.6 g/dL (6.4-8.2)
[2020-05-18 00:37] LABS: Acetaminophen < 2 ug/mL (10-30)
[2020-05-18 00:39] LABS: Ethanol > 300 mg/dL (0-6)
--- NOTE | 2020-05-18 00:44 | ED.ALCOHOL ---
HPI - Alcohol General Chief Complaint: Alcohol Stated Complaint: intoxication Source: patient Mode of arrival: EMS Limitations: intoxication History of Present Illness HPI narrative: Pt is a 59yo male chronic alcoholic who presents with not getting off the couch in several days. He was covered inhis own urine and feces, and complained of being very weak. his family called EMS. Pt is well known to the hospital nursing staff. Pt states he wants to quit drinking, so information was provded to him MD complaint: alcohol intoxication Last drink: just TUB MENDER Chronic alcohol use: Yes Previous visits for alcohol intoxication: Yes Recent trauma: No Associated symptoms: denies other symptoms Related Data Home Medications Medication Instructions Recorded Confirmed atorvastatin 10 mg PO DAILY 06/30/19 05/18/20 calcitriol 0.5 mcg PO DAILY 06/30/19 05/18/20 folic acid 1 mg PO DAILY 12/10/19 05/18/20 pantoprazole [Protonix] 40 mg PO QAM 12/10/19 05/18/20 melatonin 5 mg PO HS PRN 03/29/20 05/18/20 Allergies Allergy/AdvReac Type Severity Reaction Status Date / Time No Known Allergies Allergy Verified 03/28/20 15:02 Review of Systems Review of Systems: All systems reviewed & are unremarkable except as noted in HPI and below PMFSH Past Medical History Medical History Abnormal colonoscopy Abnormal EKG Acute hypokalemia Acute UTI Alcohol abuse Anxiety Benign prostatic hyperplasia Chronic anemia Compression fracture Including thoracic and lumbar compression fractures. Deep venous thrombosis Left femoral vein, left internal jugular, and let axillary veins noted on ultrasound in May 2019. Hepatic steatosis Hypertension Hypomagnesemia Hypothyroidism Kidney stones Major depression Nicotine use disorder Peptic ulcer disease Remote history of perforated peptic ulcer status post partial gastrectomy. Peripheral neuropathy Substance abuse Suicidal ideation Thyroid cancer Status post partial thyroidectomy. Previously on levothyroxine. Type 2 [place] (myocardial infarction) (~08/2016) No ischemic cardiac evaluation was undertaken. Surgical History Surgical History H/O esophagogastroduodenoscopy History of cholecystectomy History of hernia repair Multiple ventral hernia repairs including incisional hernia repair, some with mesh. History of partial gastrectomy For perforated peptic ulcer. History of partial thyroidectomy For thyroid cancer. Family History Family History Father Cancer Mother Dementia Father Family history of malignant neoplasm Mother Family history of Alzheimer's disease Social History Social History Social History: patient has 2 children a son and a daughter. Patient is disable Surrogate decision maker: Shannan Lyons, daughter who is his durable power attorney recruiter for healthcare. he says that he still smokes about 2-6 cigarettes a day. Last time the patient drink alcohol was about 3 days ago. The patient is . Code status: Full code. Smoking packs per day: 0.5 Smoking cigarettes per day: 10.0 Years smoked: 45 Smoking pack-years: 22.50 Smoking status: Current every day smoker Tobacco type: cigarettes Second hand tobacco smoke exposure: Yes Additional smoking assessment comments: Typically smokes between 2 and 6 cigarettes a day. Alcohol intake: current Drinks per week: 10 Substance use: never Substance use type: does not use Additional living arrangements comments: Lives alone in [place]. Additional occupation/education comments: On disability. Gender identity (if verbalized by the patient): Male Spiritual care concerns: No Agree to blood products: Yes Exam Const: General: no acute distress and alert Nutritional
[2020-05-18 01:21] LABS: Magnesium 1.8 mg/dL (1.8-2.4)
[2020-05-18 01:52] VITALS: BP 110/60; PULSE 70; RESP 18; O2SAT 97
--- NOTE | 2020-05-18 03:07 | PC.NURSE ---
Pt. sitting in bed, watching TV, on his call light consistently and asking for more ice chips and water. Discussed POC c pt. about f/u care and referrals for alcoholism. Will keep trying to call pts. daughter for ride home at d/c.
[2020-05-18 04:22] VITALS: BP 110/59; PULSE 68; RESP 18; O2SAT 99
--- NOTE | 2020-05-18 06:07 | PC.NURSE ---
Pt. sleeping, upon awakening, pt. incontinent of urine. Attempted c x2 assist to stand pt. and clean dry depend placed on pt. ERP evaluated pt. and discussed options for alcohol rehab w/drawal program and NH placement for pt. care.
--- NOTE | 2020-05-18 06:10 | PC.NURSE ---
Pt. voices that he wants to go to rehab facility and then to NH for care.
--- NOTE | 2020-05-18 06:14 | PC.NURSE ---
Call placed to [facility] for [facility] w/drawal program. Given info. that they will be available at 8AM and to call back then.
--- NOTE | 2020-05-18 07:10 | PC.NURSE ---
Report given to EDMUND Ren
--- NOTE | 2020-05-18 07:29 | PC.NURSE ---
report received from offgoing RN. Pt is alert and oriented, answering all questions appropriately, denies complaints of any kind. ice water provided.
[2020-05-18 10:23] LABS: Ethanol 211 mg/dL (0-6)
[2020-05-18 11:05] LABS: Glucose Point of Care 52 (65-105)
[2020-05-18 11:05] LABS: Glucose Point of Care 76 (65-105)
--- NOTE | 2020-05-18 12:06 | PC.NURSE ---
09 [facility] CONTACTED. AWAITING CALL BACK [phone] RN CONTACTED [facility] AND LEFT A MESSAGE. AWAITING CALL BACK. 927 [facility] ADMINISTRATOR, DWAIN CONTACTED RN AND ACCEPTED PATIENT. STATES SHE WILL BE IN CONTACT TODAY. 0950 DAUGHTER, ANA MARIA CONTACTED ABOUT [facility]. [address] CONTE INFORMED OF PATIENTS NEED FOR JAIL PLACEMENT AFTER [facility].
[2020-05-18 12:37] VITALS: BP 140/84; PULSE 93; RESP 16; O2SAT 98
--- NOTE | 2020-05-18 12:46 | PC.NURSE ---
1231 RN GAVE REPORT TO HILDA WEATHERS RN. PT TO BE TRANSFERRED BY WHEELCHAIR TO ROOM 202. PTS DAUGHTER NOTIFIED.
[2020-05-18 12:50] VITALS: BP 162/90; PULSE 118; RESP 18; TEMP 36.3; O2SAT 100; BMI 23.1
--- NOTE | 2020-05-18 12:50 | ADMGEN ---
This patient, Calixto Lyons, was admitted to 2nd Floor Room 202-2 for resolution of DT's. Patient/family oriented to hospital policies and general routines including ID bracelet, bed and alarms, visiting hours, pain management, procedures, bathroom and other care routines, personal items, smoking policy, room service/diet, and visiting hours. Patient states understanding, may need to be reiterated with patient. Patient resting quietly in bed currently. Information on how to activate the Rapid Response Team has been discussed. Patient/Family are encouraged to report perceived risks to care and to ask questions if they do not understand what they are told or what they should do.
--- NOTE | 2020-05-18 14:25 | PM.IMHP ---
H&P: HPI History of Present Illness Date/Time: 05/18/20 14:25 <JIEMNA Holguin - Last Filed: 05/18/20 14:38> Chief Complaint: Alcohol rehabilitation placement <JIMENA Holguin - Last Filed: 05/18/20 14:38> Narrative: Calixto Lyons is a 59 year old male that came into our ED for possible alcohol rehab placement. Patient has a past medical history of alcohol abuse, anxiety, BPH, anemia , History of DVT, hypertension, hypomagnesia, hypothyroidism, major depression, peptic ulcer disease, substance abuse, suicidal ideation, and esophageal cancer. Patient is well-known to our establishment. Alcohol level greater than 300 patient labs are at baseline no significant abnormalities to report, chest x-ray indicate . Awaiting alcohol rehab placement. Patient notes that he called his daughter because he wanted help with his alcohol addiction and proceeded to our ED for possible placement. He has no other complaints at this time. The patient denies SOB, CP, palpitation, extremity numbness, lightheadedness, dizziness, constipation, diarrhea, chills, or fever. <JIMENA Holguin - Last Filed: 05/18/20 14:38> Review of Systems Review of Systems: All systems reviewed & are unremarkable except as noted in HPI and below (10 point system review) <JIMENA Holguin - Last Filed: 05/18/20 14:38> [facility] Past Medical History Medical History: Medical History Abnormal colonoscopy Abnormal EKG Acute hypokalemia Acute UTI Alcohol abuse Anxiety Benign prostatic hyperplasia Chronic anemia Compression fracture Including thoracic and lumbar compression fractures. Deep venous thrombosis Left femoral vein, left internal jugular, and let axillary veins noted on ultrasound in May 2019. Hepatic steatosis Hypertension Hypomagnesemia Hypothyroidism Kidney stones Major depression Nicotine use disorder Peptic ulcer disease Remote history of perforated peptic ulcer status post partial gastrectomy. Peripheral neuropathy Substance abuse Suicidal ideation Thyroid cancer Status post partial thyroidectomy. Previously on levothyroxine. Type 2 [place] (myocardial infarction) (~08/2016) No ischemic cardiac evaluation was undertaken. <JIMENA Holguin - Last Filed: 05/18/20 14:38> Surgical History Surgical History: Surgical History H/O esophagogastroduodenoscopy History of cholecystectomy History of hernia repair Multiple ventral hernia repairs including incisional hernia repair, some with mesh. History of partial gastrectomy For perforated peptic ulcer. History of partial thyroidectomy For thyroid cancer. <JIMENA Holguin - Last Filed: 05/18/20 14:38> Family History Family History: Family History Father Cancer Mother Dementia Father Family history of malignant neoplasm Mother Family history of Alzheimer's disease <JIMENA Holguin - Last Filed: 05/18/20 14:38> Social History Social History: Social History Social History: patient has 2 children a son and a daughter. Patient is disable Surrogate decision maker: Shannan Lyons, daughter who is his durable power ip technology transactions attorney for healthcare. he says that he still smokes about 2-6 cigarettes a day. Last time the patient drink alcohol was about 3 days ago. The patient is . Code status: Full code. Smoking packs per day: 0.5 Smoking cigarettes per day: 10.0 Years smoked: 45 Smoking pack-years: 22.50 Smoking status: Former smoker Tobacco type: cigarettes Second hand tobacco smoke exposure: Yes Additional smoking assessment comments: Typically smokes between 2 and 6 cigarettes a day. Alcohol intake: current Drinks per week: 10 Substance use: never Substance
[2020-05-18 16:08] LABS: Add Urine Microscopic? YES; Bilirubin Urine 1+ (Negative); Blood Urine 1+ (Negative); Color Urine Yellow (Yellow); Glucose Urine UA Negative (Negative); Ketones Urine 3+ (Negative); Leukocyte Esterase Ur 2+ LEU/UL (Negative); Nitrate Urine Negative (Negative); Protein Urine 1+ (Negative); Specific Grav Ur 1.025 (1.010-1.020)
[2020-05-18 16:14] LABS: Amphetamine Screen Urine Negative (Negative); Barbiturate Screen Urine Negative (Negative); Benzodiazepines Screen Urine Positive (Negative); Cannabinoid Screen Urine Negative (Negative); Cocaine Screen Urine Negative (Negative); Methadone Screen Urine Negative (Negative); Opiate Screen Urine Negative (Negative); Phencyclidine Screen Urine Negative (Negative)
[2020-05-18] MEDS: THIAMINE HCL INJ 100 MG, FOLIC ACID INJ 1 MG, MULTIVITAMINS-12 INJ VIAL 1 5 ML, MULTIVI... IV CONT (16:18)
[2020-05-18 16:30] LABS: Appearance Urine Cloudy (Clear)
[2020-05-18 16:32] LABS: Squamous Epithelial Cell Urine Few /hpf (Few); WBC Urine 51-75 /hpf (0-3)
[2020-05-18 16:33] LABS: Bacteria Urine 1+ /hpf
[2020-05-18] MEDS: MAGNESIUM OXIDE 400 MG TABLET PO (16:48)
[2020-05-18] MEDS: chlordiazePOXIDE (*CRX) 25 MG CAPSULE 50 MG PO (17:48)
[2020-05-18] MEDS: FLUTICASONE PROPIONATE 0.05% NA SPR 16 GM BTL (*BKC) 2 SPRAY NASAL (21:24)
[2020-05-18 21:25] VITALS: PULSE 90
[2020-05-18] MEDS: MELATONIN 5 MG TABLET PO (21:25)
[2020-05-18] MEDS: METOPROLOL TARTRATE 50 MG TAB PO (21:25)
[2020-05-18] MEDS: traZODone HCL 50 MG TABLET 150 MG PO (21:25)
[2020-05-18 23:33] VITALS: BP 133/84; PULSE 90; RESP 20; TEMP 37.1; O2SAT 94
[2020-05-19] MEDS: chlordiazePOXIDE (*CRX) 25 MG CAPSULE 50 MG PO ×2 (00:42→07:57)
[2020-05-19 05:38] VITALS: PULSE 86
[2020-05-19] MEDS: METOPROLOL TARTRATE 50 MG TAB PO (05:38)
[2020-05-19] MEDS: LEVOTHYROXINE SODIUM 25 MCG TABLET PO (05:39)
[2020-05-19] MEDS: TAMSULOSIN HCL 0.4 MG CAPSULE PO (07:59)
[2020-05-19] MEDS: amLODIPine BESYLATE 5 MG TABLET PO (07:59)
[2020-05-19] MEDS: ATORVASTATIN 10 MG TABLET PO (07:59)
[2020-05-19 08:00] VITALS: BP 118/80; PULSE 80; RESP 18; TEMP 36.6; O2SAT 100
[2020-05-19] MEDS: THIAMINE HCL 100 MG TABLET PO (08:00)
[2020-05-19] MEDS: FERROUS SULFATE 324 MG TABLET PO (08:00)
[2020-05-19] MEDS: PANTOPRAZOLE 40 MG TABLET PO (08:00)
[2020-05-19] MEDS: MAGNESIUM OXIDE 400 MG TABLET PO (08:00)
[2020-05-19] MEDS: methocarbamoL 750 MG TABLET PO (08:00)
[2020-05-19] MEDS: FOLIC ACID 1 MG TABLET PO (08:00)
[2020-05-19] MEDS: FINASTERIDE 5 MG TABLET PO (08:00)
[2020-05-19 08:03] LABS: Hematocrit 32.6 % (40.0-54.0); Hemoglobin 10.6 g/dL (14.0-18.0); Mean Corpuscular HGB Conc 32.5 g/dL (32.0-36.0); Mean Corpuscular Hemoglobin 28.1 pg (27.0-31.0); Mean Corpuscular Volume 86.5 fL (78.0-102.0); Mean Platelet Volume 8.9 fl (8.7-11.0); Platelet Count Result 153 K/mm3 (150-420); Red Blood Count 3.77 M/mm3 (4.70-6.10); Red Cell Distribution Width 15.5 % (11.6-14.4); White Blood Count 9.1 K/mm3 (4.8-10.8)
[2020-05-19 08:20] LABS: Albumin Level 2.1 g/dL (3.4-5.0); Alkaline Phosphatase 77 U/L (46-116); Anion Gap 8 mmol/L (8-16); Aspartate Amino Transferase 25 U/L (15-37); Bilirubin,Total 1.3 mg/dL (0.00-1.00); Blood Urea Nitrogen 11 mg/dL (7-18); Carbon Dioxide 29 mmol/L (21-32); Chloride 98 mmol/L (98-108); Estimated CRCL calculation 92 ml/min; Estimated Glomerular Filt Rate > 60; Glucose 124 mg/dL (70-99); Osmolality Calculated 280 mOsm/kg (285-295); Potassium 3.4 mmol/L (3.5-5.1); Sodium 135 mmol/L (136-145)
[2020-05-19 08:36] LABS: Alanine Aminotransferase 13 U/L (16-63)
[2020-05-19 08:38] LABS: Ethanol < 3 mg/dL (0-6)
--- NOTE | 2020-05-19 11:45 | PM.DS ---
DS: Admitting Diagnosis Admitting Diagnosis Admitting Diagnosis: Alcohol withdrawal DS: Discharge Diagnosis Discharge Diagnosis (1) ETOHism: Code(s): F10.20 - Alcohol dependence, uncomplicated Status: Acute Assessment and Plan: Alcohol level greater than 300 currently within normal limits Patient will discharge in proceed to [facility] for rehabilitation (2) BPH (benign prostatic hyperplasia): Code(s): N40.0 - Benign prostatic hyperplasia without lower urinary tract symptoms Status: Acute Assessment and Plan: Continue home medication (3) Hypothyroidism: Code(s): E03.9 - Hypothyroidism, unspecified Status: Chronic Assessment and Plan: Continue home medication (4) GERD (gastroesophageal reflux disease): Code(s): K21.9 - Gastro-esophageal reflux disease without esophagitis Status: Acute Assessment and Plan: Continue home medication (5) 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: Code(s): C15.4 - 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 Status: Acute Assessment and Plan: Follow-up with oncologist and radiologist (6) Major depression: Qualifiers: Major depression recurrence: recurrent Active/Remission status: currently active Major depression episode severity: unspecified Qualified Code(s): F33.9 - Major depressive disorder, recurrent, unspecified Code(s): F32.9 - Major depressive disorder, single episode, unspecified Status: Acute Assessment and Plan: Continue home medication (7) CAD (coronary atherosclerotic disease): Onset Date: Unknown Code(s): I25.10 - Atherosclerotic heart disease of yocha dehe coronary artery without angina pectoris Status: Acute Assessment and Plan: Continue home medication (8) PVD (peripheral vascular disease): Onset Date: Unknown Code(s): I73.9 - Peripheral vascular disease, unspecified Status: Acute Assessment and Plan: Continue home medication (9) Hypertension: Code(s): I10 - Essential (primary) hypertension Status: Acute Assessment and Plan: Slightly elevated Start home medication (10) History of DVT (deep vein thrombosis): Code(s): Z86.718 - Personal history of other venous thrombosis and embolism Status: Acute Assessment and Plan: Patient no longer on anticoagulants due to high fall risk DS: Summary Hospital Course Hospital Course: Calixto Lyons is a 59 year old male that came into our ED for possible alcohol rehab placement. Patient has a past medical history of alcohol abuse, anxiety, BPH, anemia , History of DVT, hypertension, hypomagnesia, hypothyroidism, major depression, peptic ulcer disease, substance abuse, suicidal ideation, and esophageal cancer. Patient is well-known to our establishment. Alcohol level greater than 300 on admission patient labs are at baseline no significant abnormalities to report, chest x-ray indicate . Patient will discharge today with instructions on how to contact [facility] for inpatient admission to the rehab program. the patient denies SOB, CP, palpitation, extremity numbness, lightheadedness, dizziness, constipation, diarrhea, chills, or fever Time Spent with Patient Time attestation: Total time spent providing and/or coordinating discharge services: Exam Narrative: Exam Narrative: GENERAL: This is a well-nourished, well-developed patient, in no apparent distress. HEAD: normocephalic, atraumatic. EYES: PERRL. Sclera clear/white. Vision is grossly intact. EARS: External ears normal, auditory canals clear and without drainage, TMs normal without perforation. Hearing grossly intact. NOSE: External nose normal with no obvious nasal discharge, nares without redness, no rhinorrhea. THROAT: Mucous membranes moist, posterior pharynx clear. NECK: Neck supple, non-tender without lymphadenopathy, masses or thyromegaly. CA
--- NOTE | 2020-05-19 14:10 | PC.NURSE ---
1300 patient discharged to his daughter at this time. pt c/o feeling shaky all over and jittery. going to a rehab at this time. paperwork given. encouraged to keep eye port access for s/s infection. vocalize an understanding. torin irving
--- NOTE | 2020-05-20 07:38 | P.PNCROSS_ITS ---
Event Note Event Note Event Note: Patient UA with the growth of pseudomas aeruginosa C&S faxed to [facility]
--- NOTE | 2020-05-24 14:10 | PC.NURSE ---
Unable to contact for discharge call back.
== END 2020-05-19 13:00 | disposition home or self-care (01) ==
LOC: CHSED 05-18 09:08 → CHS2ND 05-18 12:34
PROVIDERS: Nurse Practitioner; Admitting Provider Family Medicine; Emergency Provider Emergency Medicine; PCP Internal Medicine; Visit Provider Family Medicine
DX: F10.229 Alcohol dependence with intoxication, unspecified (principal); C15.4 Malignant neoplasm of middle third of esophagus; N40.0 Benign prostatic hyperplasia without lower urinary tract symptoms; D64.9 Anemia, unspecified; I25.10 Atherosclerotic heart disease of native coronary artery without angina pectoris; I82.512 Chronic embolism and thrombosis of left femoral vein; I82.C22 Chronic embolism and thrombosis of left internal jugular vein; I82.A22 Chronic embolism and thrombosis of left axillary vein; I25.2 Old myocardial infarction; I10 Essential (primary) hypertension; K76.0 Fatty (change of) liver, not elsewhere classified; E89.0 Postprocedural hypothyroidism; F41.9 Anxiety disorder, unspecified; F32.9 Major depressive disorder, single episode, unspecified; Z90.3 Acquired absence of stomach [part of]; Z90.49 Acquired absence of other specified parts of digestive tract; Z85.850 Personal history of malignant neoplasm of thyroid; Z87.11 Personal history of peptic ulcer disease; I73.9 Peripheral vascular disease, unspecified
CPT/HCPCS: 36415; 71046; 80053; 80307; 81001; 82553; 82948; 83735; 85025; 85027; 87077; 87086; 87088; 87186; 93005; 96365; 96366; 99285; A9270; G0378; J3411; J3475; J7030; J7121

== ENCOUNTER 2020-06-28 14:21 | Inpatient (IN) | payer MEDICARE, MEDICAID, SELFPAY ==
--- NOTE | ~2020-06-28 | XR_ITS ---
EXAMINATION: XR chest 2V DATE: 06/28/2020 15:41 INDICATION: Shortness of breath, tachycardia and generalized weakness TECHNIQUE: frontal and lateral views of the chest were obtained. COMPARISON: Chest radiograph dated 05/18/2020 FINDINGS: Right internal jugular central venous port catheter with distal tip near the superior cavoatrial junc tion. Blunting at the posterior sulci consistent with very small bilateral pleural effusions. No othe r airspace opacities, pulmonary edema or pneumothorax.. The cardiomediastinal silhouette is normal. O ld lateral right seventh-ninth rib fractures. Old proximal right humeral fracture with secondary adva nced right glenohumeral osteoarthritis. IMPRESSION: 1. Very small bilateral pleural effusions. Reviewed, dictated and finalized at location A.
[2020-06-28 14:42] VITALS: BP 164/109; PULSE 126; RESP 24; TEMP 36.2; O2SAT 98
--- NOTE | 2020-06-28 14:46 | ED.WEAKNESS ---
HPI - Weakness General Chief complaint: Weakness Stated complaint: suicidal nothing to eat or drink for awhile Time Seen by Provider: 06/28/20 14:46 Source: patient Mode of arrival: wheelchair Limitations: no limitations History of Present Illness HPI Narrative: 59-year-old man brought to the emergency department by his daughter for weakness and suicidal ideation. He states that he not been eating or drinkinig because he has no appetite and that he wants to and considered using sharp knives that he has at home to harm himself. He states he feels he is a burden to everyone. He denies any vomiting and has had intermittent diarrhea for which she has taken an [id number] anti diarrheal medication. Complains of abdominal pain, mostly in the epigastric area. He also complains of being very shaky. He denies any cough or cold symptoms, difficulty breathing, difficulty swallowing, fever, chest pain, extremity swelling, black or bloody stools, dysuria, hematuria, or difficulty urinating. Both patient and daughter are asking about hospice care and placement. Patient has been admitted to [facility] within the last month. he has esophageal cancer and has received approximately 1/2 of his recommended radiation treatments. MD Complaint: generalized weakness Onset (ago): day(s) Duration: constant and progressively worsening Location: generalized Migration: none Severity: moderate Relieving factors: none Exacerbating factors: none Associated symptoms: denies other symptoms Related Data Home Medications Medication Instructions Recorded Confirmed atorvastatin 5 mg PO DAILY 06/30/19 06/28/20 folic acid 1 mg PO DAILY 12/10/19 06/28/20 melatonin 5 mg PO HS PRN 03/29/20 06/28/20 dicyclomine 30 mg PO TID 06/28/20 06/28/20 hydroxyzine HCl 25 mg PO DAILY 06/28/20 06/28/20 metoprolol succinate 25 mg PO DAILY 06/28/20 06/28/20 multivitamin [Daily-Stuart] 1 tablet PO DAILY 06/28/20 06/28/20 potassium chloride [Klor-Con M20] 20 meq PO DAILY 06/28/20 06/28/20 rivaroxaban [Xarelto] 20 mg PO DAILY 06/28/20 06/28/20 Allergies Allergy/AdvReac Type Severity Reaction Status Date / Time No Known Allergies Allergy Verified 06/28/20 14:51 Review of Systems Review of Systems: All systems reviewed & are unremarkable except as noted in HPI and below Constitutional: Constitutional: Denies chills and Denies fever(s) Eyes: Eyes: Denies change in vision and Denies photophobia ENT: Denies dysphagia, Denies nasal congestion and Denies sore throat Cardiovascular: Cardiovascular: Denies chest pain and Denies radiating jaw, neck or arm pain Respiratory: Respiratory: Denies cough and Denies dyspnea Gastrointestinal: Gastrointestinal: Reports abdominal pain, Reports diarrhea, Reports nausea and Denies vomiting Genitourinary: Genitourinary: Denies hematuria, Reports oliguria, Denies dysuria and Denies urinary frequency Musculoskeletal: Musculoskeletal: Denies back pain, Denies arthralgias and Denies joint swelling Integumentary/Breasts: Skin/Breast: Denies pruritus, Denies erythema and Denies rash Neurologic: Denies vertigo, Denies dizziness, Denies syncope, Denies focal weakness, Denies numbness and Reports weakness Psychiatric: Psychiatric: Reports anxiety, Reports depression and Reports suicidal ideation Endocrine: Endocrine: Denies polydipsia and Denies polyuria Hematologic/Lymphatic: Hematologic/Lymphatic: Denies easy bleeding and Denies easy bruising Allergic/Immunologic: Allergic/Immunologic: Denies lip swelling and Denies throat swelling PMFSH Past Medical History Medical History Abnormal colonoscopy Abnormal EKG Acute hypokalemia Acute UTI Alcohol abuse Anxiety Benign prostatic hyperplasia Chronic anemia Compression fracture Including thoracic and lumbar compression fractures. Deep venous thrombosis Left femoral vein, left internal jugular, and l
--- NOTE | 2020-06-28 14:52 | ECG_ITS ---
Measurements Intervals [place] Rate: 106 P: 66 RI: 160 QRS: 59 QRSD: 83 T: 58 QT: 357 QTc: 476 Interpretive Statements SINUS TACHYCARDIA ABNORMAL ECG Electronically Signed On 06-28-2020 15:06:29 CDT by Cruz Pickard D.O.
[2020-06-28 15:23] LABS: Basophils Absolute Auto 0.06 K/mm3 (0.00-0.10); Basophils Percent Auto 0.4 % (0.0-1.0); Eosinophils Absolute Auto 0.07 K/mm3 (0.02-0.50); Eosinophils Percent Auto 0.5 % (1.0-6.0); Hematocrit 39.7 % (40.0-54.0); Immature Granulocyte Absolute 0.05 K/mm3 (0.00-0.00); Immature Granulocyte Percent A 0.3 % (0.0-0.0); Lymphocytes Absolute Auto 1.63 K/mm3 (1.10-4.50); Lymphocytes Percent Auto 10.6 % (18.0-42.0); Mean Corpuscular HGB Conc 32.7 g/dL (32.0-36.0); Mean Corpuscular Hemoglobin 27.3 pg (27.0-31.0); Mean Corpuscular Volume 83.4 fL (78.0-102.0); Mean Platelet Volume 9.3 fl (8.7-11.0); Monocytes Percent Auto 11.7 % (2.0-11.0); Neutrophils Absolute Auto 11.8 K/mm3 (1.7-7.2); Neutrophils Percent Auto 76.5 % (50.0-70.0); Platelet Count Result 479 K/mm3 (150-420); Red Blood Count 4.76 M/mm3 (4.70-6.10); Red Cell Distribution Width 14.9 % (11.6-14.4); White Blood Count 15.4 K/mm3 (4.8-10.8)
[2020-06-28] MEDS: SODIUM CHLORIDE 0.9% IV 1,000 ML 999 ML IV CONT (15:30)
[2020-06-28 15:37] LABS: INR 1.2; Partial Thromboplastin Time 31.9 SEC (23.90-30.70); Prothrombin Time 12.8 Seconds (9.50-12.10)
[2020-06-28 15:39] LABS: Alanine Aminotransferase 12 U/L (16-63); Albumin Level 2.9 g/dL (3.4-5.0); Alkaline Phosphatase 69 U/L (46-116); Anion Gap 18 mmol/L (8-16); Aspartate Amino Transferase 13 U/L (15-37); Bilirubin,Total 0.6 mg/dL (0.00-1.00); Blood Urea Nitrogen 12 mg/dL (7-18); CRP 0.8 mg/dL (0.0-0.9); Calcium 8.3 mg/dL (8.5-10.1); Carbon Dioxide 17 mmol/L (21-32); Chloride 99 mmol/L (98-108); Estimated Glomerular Filt Rate > 60; Glucose 129 mg/dL (70-99); Lipase 20 U/L (73-393); Osmolality Calculated 279 mOsm/kg (285-295); Potassium 3.5 mmol/L (3.5-5.1); Sodium 134 mmol/L (136-145); Total Protein 6.4 g/dL (6.4-8.2)
[2020-06-28 15:42] LABS: Acetaminophen < 2 ug/mL (10-30); Ethanol < 3 mg/dL (0-6); Salicylate 3.4 mg/dL (2.8-20.0)
[2020-06-28 15:45] LABS: Lactic Acid Reflex 1.6 mmol/L (0.4-2.0)
[2020-06-28 16:25] VITALS: BP 146/99; PULSE 92; RESP 20; O2SAT 96
--- NOTE | 2020-06-28 16:25 | PCCCNOTE ---
Patient in ER and per MD report is suicidal- wif plan. Patient lives at home alone- daughter Shannan Lyons checks on him daily. Spoke with Shannan per phone- states her father wants to go to facility- and has been declined by [facility] in [place]. Since last admission here he has been in alcohol rehab for 24 hours- then transferred to [place] for GI bleed and then d/c to [facility] bed. Shannan feels certain that patient is not drinking at this time- tox screen pending. Also would like Hospice Care considered. [facility] Laura was contacted and provided with patient name and the situation at hand. Patient to be admitted for dehydration and will need to be evaluated by [facility] when feeling better. Laura will call tomorrow to be updated on condition and will need referral if appropriate. Shannan aware that he will need to be medically clear in order to further discuss code status and Hospice need. Will further evaluate after patient admitted.
[2020-06-28 16:55] VITALS: PULSE 91; RESP 20; O2SAT 96
[2020-06-28 17:39] VITALS: BMI 18.8
[2020-06-28] MEDS: DICYCLOMINE HCL 10 MG CAPSULE 30 MG PO (18:24)
[2020-06-28] MEDS: RIVAROXABAN 10 MG TABLET 20 MG PO (18:24)
[2020-06-28] MEDS: THIAMINE HCL INJ 100 MG, FOLIC ACID INJ 1 MG, MULTIVITAMINS-12 INJ VIAL 1 5 ML, MULTIVI... 999 MG IV CONT (18:25)
--- NOTE | 2020-06-28 19:00 | ADMGEN ---
This patient, Calixto Lyons, was admitted to 2nd Floor Room 207-2. Patient oriented to hospital policies and general routines including ID bracelet, bed and alarms, visiting hours, pain management, procedures, bathroom and other care routines, personal items, smoking policy, room service/diet, and visiting hours. Patient encouraged to report perceived risks to care and to ask questions if they do not understand what they are told or what they should do.
[2020-06-28] MEDS: DEXTROSE 5%/LACTATED RINGERS 1,000 ML 150 ML IV CONT (19:25)
--- NOTE | 2020-06-28 19:34 | PC.NURSE ---
Call placed to Dr Fofana regarding pt wanting medication for the shakes , stated he will put in an order in.
--- NOTE | 2020-06-28 20:05 | PC.NURSE ---
pt resting in bed, iv fluids infusing per order, alarms on
[2020-06-28] MEDS: traZODone HCL 50 MG TABLET 150 MG PO (21:03)
[2020-06-28] MEDS: chlordiazePOXIDE (*CRX) 25 MG CAPSULE PO (21:03)
[2020-06-28] MEDS: FLUTICASONE PROPIONATE 0.05% NA SPR 16 GM BTL (*BKC) 2 SPRAY NASAL (21:03)
[2020-06-28 22:44] LABS: Anion Gap 12 mmol/L (8-16); Blood Urea Nitrogen 12 mg/dL (7-18); Calcium 7.4 mg/dL (8.5-10.1); Carbon Dioxide 21 mmol/L (21-32); Chloride 103 mmol/L (98-108); Estimated CRCL calculation 71 ml/min; Estimated Glomerular Filt Rate > 60; Glucose 178 mg/dL (70-99); Osmolality Calculated 285 mOsm/kg (285-295); Potassium 3.1 mmol/L (3.5-5.1); Sodium 136 mmol/L (136-145)
[2020-06-28 23:44] VITALS: BP 168/92; PULSE 100; RESP 20; TEMP 37.3; O2SAT 98
[2020-06-29 01:50] LABS: Amphetamine Screen Urine Negative (Negative); Barbiturate Screen Urine Negative (Negative); Benzodiazepines Screen Urine Positive (Negative); Cannabinoid Screen Urine Negative (Negative); Cocaine Screen Urine Negative (Negative); Methadone Screen Urine Negative (Negative); Opiate Screen Urine Negative (Negative); Phencyclidine Screen Urine Negative (Negative)
[2020-06-29 02:03] LABS: Add Urine Microscopic? YES; Appearance Urine Clear (Clear); Bilirubin Urine 2+ (Negative); Blood Urine Negative (Negative); Color Urine Yellow (Yellow); Glucose Urine UA Negative (Negative); Ketones Urine 2+ (Negative); Leukocyte Esterase Ur 1+ LEU/UL (Negative); Nitrate Urine Positive (Negative); Protein Urine Negative (Negative); Urobilinogen Urine 0.2 mg/dL (0.2-1.0); pH Urine 6.5 (5.0-8.0)
[2020-06-29] MEDS: DEXTROSE 5%/LACTATED RINGERS 1,000 ML 150 ML IV CONT ×4 (02:09→21:59)
[2020-06-29 02:16] LABS: Bacteria Urine 1+ /hpf; WBC Urine 16-20 /hpf (0-3)
[2020-06-29 02:17] LABS: Mucus Urine Few /lpf
[2020-06-29] MEDS: LEVOTHYROXINE SODIUM 25 MCG TABLET PO (05:34)
[2020-06-29] MEDS: chlordiazePOXIDE (*CRX) 25 MG CAPSULE PO ×3 (05:34→21:16)
[2020-06-29 05:40] LABS: Basophils Absolute Auto 0.03 K/mm3 (0.00-0.10); Basophils Percent Auto 0.3 % (0.0-1.0); Eosinophils Absolute Auto 0.18 K/mm3 (0.02-0.50); Eosinophils Percent Auto 2.1 % (1.0-6.0); Hemoglobin 10.1 g/dL (14.0-18.0); Immature Granulocyte Absolute 0.04 K/mm3 (0.00-0.00); Immature Granulocyte Percent A 0.5 % (0.0-0.0); Lymphocytes Absolute Auto 1.27 K/mm3 (1.10-4.50); Lymphocytes Percent Auto 14.7 % (18.0-42.0); Mean Corpuscular HGB Conc 32.6 g/dL (32.0-36.0); Mean Corpuscular Volume 82.9 fL (78.0-102.0); Mean Platelet Volume 9.7 fl (8.7-11.0); Monocytes Absolute Auto 1.17 K/mm3 (0.10-0.90); Monocytes Percent Auto 13.5 % (2.0-11.0); Neutrophils Percent Auto 68.9 % (50.0-70.0); Platelet Count Result 349 K/mm3 (150-420); Red Blood Count 3.74 M/mm3 (4.70-6.10); Red Cell Distribution Width 14.9 % (11.6-14.4); White Blood Count 8.6 K/mm3 (4.8-10.8)
[2020-06-29 05:52] LABS: Alanine Aminotransferase 12 U/L (16-63); Albumin Level 2.3 g/dL (3.4-5.0); Alkaline Phosphatase 55 U/L (46-116); Anion Gap 9 mmol/L (8-16); Aspartate Amino Transferase < 10 U/L (15-37); Bilirubin,Total 0.3 mg/dL (0.00-1.00); Blood Urea Nitrogen 8 mg/dL (7-18); Calcium 7.3 mg/dL (8.5-10.1); Carbon Dioxide 23 mmol/L (21-32); Chloride 105 mmol/L (98-108); Estimated CRCL calculation 77 ml/min; Estimated Glomerular Filt Rate > 60; Glucose 178 mg/dL (70-99); Osmolality Calculated 286 mOsm/kg (285-295); Sodium 137 mmol/L (136-145); Total Protein 5.1 g/dL (6.4-8.2)
[2020-06-29 07:31] LABS: Glucose Point of Care 179 (65-105)
[2020-06-29 08:00] VITALS: BP 131/84; PULSE 98; RESP 16; TEMP 36.7; O2SAT 99
[2020-06-29 08:14] VITALS: PULSE 98
[2020-06-29] MEDS: hydrOXYzine HCL 25 MG TABLET PO (08:14)
[2020-06-29] MEDS: METOPROLOL SUCCINATE EXT REL 25 MG TABCR PO (08:14)
[2020-06-29] MEDS: MAGNESIUM OXIDE 400 MG TABLET PO (08:14)
[2020-06-29] MEDS: TAMSULOSIN HCL 0.4 MG CAPSULE PO (08:14)
[2020-06-29] MEDS: DICYCLOMINE HCL 10 MG CAPSULE 30 MG PO ×3 (08:15→16:13)
[2020-06-29] MEDS: MULTIVITAMINS THERAPEUTIC TAB (*BKC) 1 TABLET PO (08:15)
[2020-06-29] MEDS: amLODIPine BESYLATE 5 MG TABLET PO (08:15)
[2020-06-29] MEDS: POTASSIUM CHLORIDE 20 MEQ TABLET PO ×3 (08:15→16:20)
[2020-06-29] MEDS: FINASTERIDE 5 MG TABLET PO (08:16)
[2020-06-29] MEDS: FOLIC ACID 1 MG TABLET PO (08:16)
[2020-06-29] MEDS: ATORVASTATIN 5 MG TABLET PO (08:43)
--- NOTE | 2020-06-29 09:45 | PC.NURSE ---
Michel Walsh contacted for patient evaluation to be done
--- NOTE | 2020-06-29 12:56 | PC.NURSE ---
[id number] Patient complained of lower abdominal discomfort, unable to void since 0800. Notified HEATH Fung. States to perform bladder scan and straight cath for residual. Bladder scan done, 307ml noted on the scan. Straight cath was not performed. Patient was able to void, 475ml of paco clear urine. Patient states abdominal discomfort improved. Patient also has had a moderate bowel movement. --Jennifer Rodriguez RN
--- NOTE | 2020-06-29 14:12 | PM.IMHP ---
H&P: HPI History of Present Illness Date/Time: 06/29/20 14:11-year-old male that is well-known to our establishment that was brought in to our ED by his doctor for weakness and suicidal ideations. Aditya has a past medical history of abnormal EKG, hypokalemia, alcohol abuse, anxiety, BPH, chronic anemia, history of DVT, hypertension, compression fracture, hypothyroidism, major depression, esophageal cancer, thyroid cancer and history of MO. Patient notes that he is depressed that he has not been strong enough to eat or he has not had alcoholic beverage 3 months. Patient has no complaints today other than he is really depressed. Patient was evaluated due to suicidal ideation and it was determined that he would need to be put in behavioral health. Patient WBC is 8.6, hemoglobin 10.1, hematocrit 31.0, platelet 349, sodium 134 potassium 3.5, BUN, glucose 129, lactic acid 1.6, AST 13, ALT 12, lipase 20. Leukocyte Estrace WBCs and bacteria, toxicology positive for benzos, chest x-ray small bilateral pleural effusion EKG sinus tach 106. Patient being admitted for weakness, and suicidal ideation. Disposition: Discharge to a behavioral health once Observation Time spent 60 minutes Chief Complaint: Generalized weakness and suicidal ideations Review of Systems Review of Systems: Narrative: A 14 organ system Review of Systems was performed and pertinent positives included in the HPI, otherwise remaining ROS is negative. [facility] Past Medical History Medical History Abnormal colonoscopy Abnormal EKG Acute hypokalemia Acute UTI Alcohol abuse Anxiety Benign prostatic hyperplasia Chronic anemia Compression fracture Including thoracic and lumbar compression fractures. Deep venous thrombosis Left femoral vein, left internal jugular, and let axillary veins noted on ultrasound in May 2019. Hepatic steatosis Hypertension Hypomagnesemia Hypothyroidism Kidney stones Major depression Nicotine use disorder Peptic ulcer disease Remote history of perforated peptic ulcer status post partial gastrectomy. Peripheral neuropathy Substance abuse Suicidal ideation Thyroid cancer Status post partial thyroidectomy. Previously on levothyroxine. Type 2 MO (myocardial infarction) (~08/2016) No ischemic cardiac evaluation was undertaken. Surgical History Surgical History H/O esophagogastroduodenoscopy History of cholecystectomy History of hernia repair Multiple ventral hernia repairs including incisional hernia repair, some with mesh. History of partial gastrectomy For perforated peptic ulcer. History of partial thyroidectomy For thyroid cancer. Family History Family History Father Cancer Mother Dementia Father Family history of malignant neoplasm Mother Family history of Alzheimer's disease Social History Social History Social History: patient has 2 children a son and a daughter. Patient is disable Surrogate decision maker: Shannan Lyons, daughter who is his durable power compliance attorney for healthcare. he says that he still smokes about 2-6 cigarettes a day. Last time the patient drink alcohol was about 3 days ago. The patient is . Code status: Full code. Smoking packs per day: 0.5 Smoking cigarettes per day: 10.0 Years smoked: 45 Smoking pack-years: 22.50 Smoking status: Current every day smoker Tobacco type: cigarettes Second hand tobacco smoke exposure: Yes Additional smoking assessment comments: Typically smokes between 2 and 6 cigarettes a day. Alcohol intake: former Drinks per week: 0 Substance use: never Substance use type: does not use Additional living arrangements comments: Lives alone in [place]. Additional occupation/education comments: On disability. Gender id
[2020-06-29 16:00] VITALS: BP 128/74; PULSE 89; RESP 16; TEMP 36.8; O2SAT 98
[2020-06-29] MEDS: POTASSIUM CHLORIDE 20 MEQ TABLET 40 MEQ PO (16:11)
[2020-06-29] MEDS: SERTRALINE HCL 50 MG TABLET PO (16:14)
[2020-06-29] MEDS: RIVAROXABAN 10 MG TABLET 20 MG PO (16:14)
[2020-06-29 16:28] LABS: Glucose Point of Care 160 (65-105)
[2020-06-29 16:49] VITALS: BP 128/74; PULSE 89; RESP 16; TEMP 36.8; O2SAT 98
[2020-06-29] MEDS: FLUTICASONE PROPIONATE 0.05% NA SPR 16 GM BTL (*BKC) 2 SPRAY NASAL (21:15)
[2020-06-29] MEDS: traZODone HCL 50 MG TABLET 150 MG PO (21:16)
[2020-06-30] VITALS: BP 105/70; PULSE 74; RESP 20; TEMP 36.5; O2SAT 98
[2020-06-30] MEDS: DEXTROSE 5%/LACTATED RINGERS 1,000 ML 150 ML IV CONT ×3 (04:28→20:52)
[2020-06-30] MEDS: LEVOTHYROXINE SODIUM 25 MCG TABLET PO (05:55)
[2020-06-30] MEDS: chlordiazePOXIDE (*CRX) 25 MG CAPSULE PO ×3 (05:55→22:22)
[2020-06-30 05:56] LABS: Hematocrit 28.6 % (40.0-54.0); Hemoglobin 9.1 g/dL (14.0-18.0); Mean Corpuscular HGB Conc 31.8 g/dL (32.0-36.0); Mean Corpuscular Hemoglobin 27.3 pg (27.0-31.0); Mean Corpuscular Volume 85.9 fL (78.0-102.0); Mean Platelet Volume 9.8 fl (8.7-11.0); Platelet Count Result 253 K/mm3 (150-420); Red Blood Count 3.33 M/mm3 (4.70-6.10); Red Cell Distribution Width 15.3 % (11.6-14.4); White Blood Count 6.1 K/mm3 (4.8-10.8)
[2020-06-30 06:10] LABS: Alanine Aminotransferase 13 U/L (16-63); Alkaline Phosphatase 49 U/L (46-116); Anion Gap 8 mmol/L (8-16); Aspartate Amino Transferase 10 U/L (15-37); Bilirubin,Total 0.2 mg/dL (0.00-1.00); Blood Urea Nitrogen 6 mg/dL (7-18); Calcium 7.5 mg/dL (8.5-10.1); Carbon Dioxide 23 mmol/L (21-32); Chloride 108 mmol/L (98-108); Estimated CRCL calculation 86 ml/min; Estimated Glomerular Filt Rate > 60; Glucose 110 mg/dL (70-99); Osmolality Calculated 286 mOsm/kg (285-295); Sodium 139 mmol/L (136-145); Total Protein 4.6 g/dL (6.4-8.2)
--- NOTE | 2020-06-30 06:32 | PC.NURSE ---
Lab called to report critical blood cultures; results reported to Dr. Mendoza-no new orders at this time.
[2020-06-30 07:33] LABS: Glucose Point of Care 140 (65-105)
[2020-06-30 08:00] VITALS: BP 112/75; PULSE 85; RESP 16; TEMP 36.4; O2SAT 98
[2020-06-30] MEDS: amLODIPine BESYLATE 5 MG TABLET PO (08:10)
[2020-06-30] MEDS: TAMSULOSIN HCL 0.4 MG CAPSULE PO (08:24)
[2020-06-30] MEDS: MAGNESIUM OXIDE 400 MG TABLET PO (08:24)
[2020-06-30] MEDS: DICYCLOMINE HCL 10 MG CAPSULE 30 MG PO ×3 (08:24→16:39)
[2020-06-30] MEDS: FOLIC ACID 1 MG TABLET PO (08:25)
[2020-06-30] MEDS: FERROUS SULFATE 324 MG TABLET PO (08:27)
[2020-06-30] MEDS: MULTIVITAMINS THERAPEUTIC TAB (*BKC) 1 TABLET PO (08:28)
[2020-06-30] MEDS: hydrOXYzine HCL 25 MG TABLET PO (08:29)
[2020-06-30] MEDS: METOPROLOL SUCCINATE EXT REL 25 MG TABCR PO (08:29)
[2020-06-30] MEDS: SERTRALINE HCL 50 MG TABLET PO (09:05)
--- NOTE | 2020-06-30 10:28 | P.PN_ITS ---
Progress Note: A&P Assessment and Plan (1) Weakness: Code(s): R53.1 - Weakness Status: Acute Assessment and Plan: * Possibly secondary to dehydration versus history of CA (2) Acute dehydration: Code(s): E86.0 - Dehydration Status: Acute Assessment and Plan: * Continue to IV hydrate patient * Secondary to decreased appetite (3) Encounter for hospice care discussion: Code(s): Z71.89 - Other specified counseling Status: Acute Assessment and Plan: * Family would discuss hospice at discharge from [facility] (4) Suicidal ideation: Code(s): R45.851 - Suicidal ideations Status: Acute Assessment and Plan: * Patient evaluated determined that patient should be admitted to [facility] * Plans to transfer once bed becomes available (5) Retention of urine: Code(s): R33.9 - Retention of urine, unspecified Status: Acute Assessment and Plan: * History * Possibly secondary to BPH * Continue Proscar * Bladder scan postvoid straight cath greater than 300 (6) BPH (benign prostatic hyperplasia): Code(s): N40.0 - Benign prostatic hyperplasia without lower urinary tract symptoms Status: Acute Assessment and Plan: * Continue Proscar (7) Hypothyroidism: Code(s): E03.9 - Hypothyroidism, unspecified Status: Chronic Assessment and Plan: * Continue Synthroid (8) Port-A-Cath in place: Code(s): Z95.828 - Presence of other vascular implants and grafts Status: Acute (9) GERD (gastroesophageal reflux disease): Code(s): K21.9 - Gastro-esophageal reflux disease without esophagitis Status: Acute Assessment and Plan: * Started Protonix (10) Abnormal finding on urinalysis: Code(s): R82.90 - Unspecified abnormal findings in urine Status: Acute Assessment and Plan: * Patient with leukocytes, nitrates in urine * History of abnormal urinalysis * Urine culture pending we will treat if needed (11) ETOHism: Code(s): F10.20 - Alcohol dependence, uncomplicated Status: Acute (12) Squamous cell carcinoma of esophagus: Code(s): C15.9 - Malignant neoplasm of esophagus, unspecified Status: Acute Assessment and Plan: * Follow-up with hematology oncology and radiologist oncology (13) Bacteremia: Code(s): R78.81 - Bacteremia Status: Acute Assessment and Plan: * Patient with the growth of gram-positive cocci in clusters in 1 blood culture bottle * started Rocephin * Patient afebrile with WBCs within normal limits Review of Systems Review of Systems: Narrative: A 14 organ system Review of Systems was performed and pertinent positives included in the HPI, otherwise remaining ROS is negative. Exam Narrative: Exam Narrative: GENERAL: This is a well-nourished, well-developed patient, in no apparent distress. HEAD: normocephalic, atraumatic. EYES: PERRL. Sclera clear/white. Vision is grossly intact. EARS: External ears normal, auditory canals clear and without drainage, TMs normal without perforation. Hearing grossly intact. NOSE: External nose normal with no obvious nasal discharge, nares without redne ss, no rhinorrhea. THROAT: Mucous membranes moist, posterior pharynx clear. NECK: Neck supple, non-tender without lymphadenopathy, masses or thyromegaly. CARDIOVASCULAR: Regular rate and rhythm without murmurs, gallops, or rubs. RESPIRATORY: Clear to auscultation. Breath sounds equal bi
--- NOTE | 2020-06-30 10:28 | WPDPN ---
Progress Note: A&P Assessment and Plan (1) Weakness: Code(s): R53.1 - Weakness Status: Acute Assessment and Plan: Possibly secondary to dehydration versus history of CA (2) Acute dehydration: Code(s): E86.0 - Dehydration Status: Acute Assessment and Plan: Continue to IV hydrate patient Secondary to decreased appetite (3) Encounter for hospice care discussion: Code(s): Z71.89 - Other specified counseling Status: Acute Assessment and Plan: Family would discuss hospice at discharge from [facility] (4) Suicidal ideation: Code(s): R45.851 - Suicidal ideations Status: Acute Assessment and Plan: Patient evaluated determined that patient should be admitted to [facility] Plans to transfer once bed becomes available (5) Retention of urine: Code(s): R33.9 - Retention of urine, unspecified Status: Acute Assessment and Plan: History Possibly secondary to BPH Continue Proscar Bladder scan postvoid straight cath greater than 300 (6) BPH (benign prostatic hyperplasia): Code(s): N40.0 - Benign prostatic hyperplasia without lower urinary tract symptoms Status: Acute Assessment and Plan: Continue Proscar (7) Hypothyroidism: Code(s): E03.9 - Hypothyroidism, unspecified Status: Chronic Assessment and Plan: Continue Synthroid (8) Port-A-Cath in place: Code(s): Z95.828 - Presence of other vascular implants and grafts Status: Acute (9) GERD (gastroesophageal reflux disease): Code(s): K21.9 - Gastro-esophageal reflux disease without esophagitis Status: Acute Assessment and Plan: Started Protonix (10) Abnormal finding on urinalysis: Code(s): R82.90 - Unspecified abnormal findings in urine Status: Acute Assessment and Plan: Patient with leukocytes, nitrates in urine History of abnormal urinalysis Urine culture pending we will treat if needed (11) ETOHism: Code(s): F10.20 - Alcohol dependence, uncomplicated Status: Acute (12) Squamous cell carcinoma of esophagus: Code(s): C15.9 - Malignant neoplasm of esophagus, unspecified Status: Acute Assessment and Plan: Follow-up with hematology oncology and radiologist oncology (13) Bacteremia: Code(s): R78.81 - Bacteremia Status: Acute Assessment and Plan: Patient with the growth of gram-positive cocci in clusters in 1 blood culture bottle started Rocephin Patient afebrile with WBCs within normal limits Review of Systems Review of Systems: Narrative: A 14 organ system Review of Systems was performed and pertinent positives included in the HPI, otherwise remaining ROS is negative. Exam Narrative: Exam Narrative: GENERAL: This is a well-nourished, well-developed patient, in no apparent distress. HEAD: normocephalic, atraumatic. EYES: PERRL. Sclera clear/white. Vision is grossly intact. EARS: External ears normal, auditory canals clear and without drainage, TMs normal without perforation. Hearing grossly intact. NOSE: External nose normal with no obvious nasal discharge, nares without redness, no rhinorrhea. THROAT: Mucous membranes moist, posterior pharynx clear. NECK: Neck supple, non-tender without lymphadenopathy, masses or thyromegaly. CARDIOVASCULAR: Regular rate and rhythm without murmurs, gallops, or rubs. RESPIRATORY: Clear to auscultation. Breath sounds equal bilaterally. No wheezes, rales, or rhonchi. GASTROINTESTINAL: Abdomen soft, non-tender, nondistended. Bowel sounds are active. No hepato-splenomegaly, or palpable masses. No guarding. SKIN: warm, intact with no suspicious lesions or rash, good texture and turgor. NEURO: awake, alert, and oriented to person, place and time. There were no obvious focal neurologic abnormalities. EXTREMITIES: Normal range of motion. No edema. No calf tenderness. Negative Homans sign
[2020-06-30] MEDS: POTASSIUM CHLORIDE 20 MEQ TABLET PO ×2 (10:50→16:39)
[2020-06-30] MEDS: POTASSIUM CHLORIDE 20 MEQ TABLET 40 MEQ PO ×2 (10:52→16:38)
[2020-06-30] MEDS: ATORVASTATIN 5 MG TABLET PO (13:30)
[2020-06-30] MEDS: FINASTERIDE 5 MG TABLET PO (14:08)
[2020-06-30 15:39] VITALS: BP 114/68; PULSE 85; RESP 20; TEMP 36.2; O2SAT 99
--- NOTE | 2020-06-30 16:24 | PC.NURSE ---
notified that patient would need a recent Covid PCR test. Order received, lab notified.
[2020-06-30] MEDS: RIVAROXABAN 10 MG TABLET 20 MG PO (16:39)
[2020-06-30 16:46] LABS: Glucose Point of Care 146 (65-105)
--- NOTE | 2020-06-30 16:47 | PC.NURSE ---
lab here for pcr. [facility] called about pt and paperwork faxed as they request. remains in chair. voices c/o that he would raather just lie in bed. explained he needs to be up for meals.
[2020-06-30 17:15] LABS: SARS-CoV-2 RNA PCR Negative (Negative)
--- NOTE | 2020-06-30 18:21 | PC.NURSE ---
patient talks with intake at [facility]. up with stand by assist to bed. alarms activated.
[2020-06-30] MEDS: FLUTICASONE PROPIONATE 0.05% NA SPR 16 GM BTL (*BKC) 2 SPRAY NASAL (20:53)
--- NOTE | 2020-06-30 21:21 | ECG_ITS ---
Measurements Intervals [place] Rate: P: ME: QRS: QRSD: T: QT: QTc: Interpretive Statements SINUS RHYTHM BASELINE WANDER- V4 NORMAL ECG Electronically Signed On 07-01-2020 7:02:44 CDT by Cruz Pickard D.O.
--- NOTE | 2020-06-30 21:47 | PC.NURSE ---
1849 Ashley from [facility] called to say that they are unable to accept patient at [facility].
--- NOTE | 2020-06-30 21:49 | PC.NURSE ---
191 Justine from [facility] called and asked this nurse to fax over patient chart to Sulema @ [phone] and Michelle @ [phone].
--- NOTE | 2020-06-30 21:51 | PC.NURSE ---
2114 Justine from [facility] called and stated Michelle requested more information. Order obtained for requested labs/EKG.
--- NOTE | 2020-06-30 22:30 | PC.NURSE ---
Clinical Trials Manager collected blood work for labs needed and collected urine for drug screen.
[2020-06-30] MEDS: traZODone HCL 50 MG TABLET 150 MG PO (22:39)
[2020-06-30 22:49] LABS: Amphetamine Screen Urine Negative (Negative); Barbiturate Screen Urine Negative (Negative); Benzodiazepines Screen Urine Positive (Negative); Cannabinoid Screen Urine Negative (Negative); Cocaine Screen Urine Negative (Negative); Methadone Screen Urine Negative (Negative); Opiate Screen Urine Negative (Negative); Phencyclidine Screen Urine Negative (Negative)
[2020-06-30 23:01] LABS: Thyroid Stimulating Hormone 2.11 uIU/mL (0.36-3.74)
[2020-06-30 23:10] LABS: Ethanol < 3 mg/dL (0-6)
[2020-07-01] VITALS: BP 130/82; PULSE 82; RESP 18; TEMP 36.7; O2SAT 99
[2020-07-01] MEDS: DEXTROSE 5%/LACTATED RINGERS 1,000 ML 150 ML IV CONT ×3 (04:31→12:38)
[2020-07-01 05:18] LABS: Hematocrit 28.9 % (40.0-54.0); Hemoglobin 9.1 g/dL (14.0-18.0); Mean Corpuscular HGB Conc 31.5 g/dL (32.0-36.0); Mean Corpuscular Hemoglobin 27.2 pg (27.0-31.0); Mean Corpuscular Volume 86.3 fL (78.0-102.0); Mean Platelet Volume 10.1 fl (8.7-11.0); Platelet Count Result 273 K/mm3 (150-420); Red Blood Count 3.35 M/mm3 (4.70-6.10); Red Cell Distribution Width 15.3 % (11.6-14.4); White Blood Count 7.2 K/mm3 (4.8-10.8)
[2020-07-01 05:32] LABS: Alanine Aminotransferase 14 U/L (16-63); Albumin Level 1.9 g/dL (3.4-5.0); Alkaline Phosphatase 53 U/L (46-116); Anion Gap 6 mmol/L (8-16); Aspartate Amino Transferase < 10 U/L (15-37); Bilirubin,Total 0.2 mg/dL (0.00-1.00); Blood Urea Nitrogen 8 mg/dL (7-18); Calcium 7.4 mg/dL (8.5-10.1); Carbon Dioxide 25 mmol/L (21-32); Chloride 107 mmol/L (98-108); Estimated CRCL calculation 99 ml/min; Estimated Glomerular Filt Rate > 60; Glucose 122 mg/dL (70-99); Osmolality Calculated 285 mOsm/kg (285-295); Potassium 4.2 mmol/L (3.5-5.1); Sodium 138 mmol/L (136-145); Total Protein 4.6 g/dL (6.4-8.2)
[2020-07-01] MEDS: chlordiazePOXIDE (*CRX) 25 MG CAPSULE PO ×3 (06:05→21:53)
[2020-07-01] MEDS: LEVOTHYROXINE SODIUM 25 MCG TABLET PO (06:05)
[2020-07-01 07:52] LABS: Glucose Point of Care 126 (65-105)
[2020-07-01 08:00] VITALS: BP 141/79; PULSE 88; RESP 20; TEMP 36.7; O2SAT 96
[2020-07-01] MEDS: ATORVASTATIN 5 MG TABLET PO (08:50)
[2020-07-01] MEDS: POTASSIUM CHLORIDE 20 MEQ TABLET PO ×2 (08:50→16:38)
[2020-07-01] MEDS: MULTIVITAMINS THERAPEUTIC TAB (*BKC) 1 TABLET PO (08:51)
[2020-07-01] MEDS: FINASTERIDE 5 MG TABLET PO (08:51)
[2020-07-01] MEDS: FOLIC ACID 1 MG TABLET PO (08:51)
[2020-07-01] MEDS: POTASSIUM CHLORIDE 20 MEQ TABLET 40 MEQ PO ×2 (08:51→16:38)
[2020-07-01] MEDS: TAMSULOSIN HCL 0.4 MG CAPSULE PO (08:51)
[2020-07-01] MEDS: DICYCLOMINE HCL 10 MG CAPSULE 30 MG PO ×3 (08:51→16:37)
[2020-07-01 08:52] VITALS: PULSE 88
[2020-07-01] MEDS: SERTRALINE HCL 50 MG TABLET PO (08:52)
[2020-07-01] MEDS: amLODIPine BESYLATE 5 MG TABLET PO (08:52)
[2020-07-01] MEDS: hydrOXYzine HCL 25 MG TABLET PO (08:52)
[2020-07-01] MEDS: MAGNESIUM OXIDE 400 MG TABLET PO (08:52)
[2020-07-01] MEDS: METOPROLOL SUCCINATE EXT REL 25 MG TABCR PO (08:52)
--- NOTE | 2020-07-01 11:29 | P.PN_ITS ---
Progress Note: A&P Assessment and Plan (1) Weakness: Code(s): R53.1 - Weakness Status: Acute Assessment and Plan: * Possibly secondary to dehydration versus history of CA (2) Acute dehydration: Code(s): E86.0 - Dehydration Status: Acute Assessment and Plan: * Continue to IV hydrate patient * Secondary to decreased appetite (3) Encounter for hospice care discussion: Code(s): Z71.89 - Other specified counseling Status: Acute Assessment and Plan: * Family would discuss hospice at discharge from [facility] (4) Suicidal ideation: Code(s): R45.851 - Suicidal ideations Status: Acute Assessment and Plan: * Patient evaluated determined that patient should be admitted to [facility] * Plans to transfer once bed becomes available (5) Retention of urine: Code(s): R33.9 - Retention of urine, unspecified Status: Acute Assessment and Plan: * History * Possibly secondary to BPH * Continue Proscar * Bladder scan postvoid straight cath greater than 300 (6) BPH (benign prostatic hyperplasia): Code(s): N40.0 - Benign prostatic hyperplasia without lower urinary tract symptoms Status: Acute Assessment and Plan: * Continue Proscar (7) Hypothyroidism: Code(s): E03.9 - Hypothyroidism, unspecified Status: Chronic Assessment and Plan: * Continue Synthroid (8) Port-A-Cath in place: Code(s): Z95.828 - Presence of other vascular implants and grafts Status: Acute (9) GERD (gastroesophageal reflux disease): Code(s): K21.9 - Gastro-esophageal reflux disease without esophagitis Status: Acute Assessment and Plan: * Started Protonix (10) Abnormal finding on urinalysis: Code(s): R82.90 - Unspecified abnormal findings in urine Status: Acute Assessment and Plan: * Patient with leukocytes, nitrates in urine * History of abnormal urinalysis * Urine culture pending we will treat if needed (11) ETOHism: Code(s): F10.20 - Alcohol dependence, uncomplicated Status: Acute (12) 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 Exam Narrative: Exam Narrative: GENERAL: This is a well-nourished, well-developed patient, in no apparent distress. HEAD: normocephalic, atraumatic. EYES: PERRL. Sclera clear/white. Vision is grossly intact. EARS: External ears normal, auditory canals clear and without drainage, TMs normal without perforation. Hearing grossly intact. NOSE: External nose normal with no obvious nasal discharge, nares without redness, no rhinorrhea. THROAT: Mucous membranes moist, posterior pharynx clear. NECK: Neck supple, non-tender without lymphadenopathy, masses or thyromegaly. CARDIOVASCULAR: Regular rate and rhythm without murmurs, gallops, or rubs. RESPIRATORY: Clear to
--- NOTE | 2020-07-01 11:29 | WPDPN ---
Progress Note: A&P Assessment and Plan (1) Weakness: Code(s): R53.1 - Weakness Status: Acute Assessment and Plan: Possibly secondary to dehydration versus history of CA (2) Acute dehydration: Code(s): E86.0 - Dehydration Status: Acute Assessment and Plan: Continue to IV hydrate patient Secondary to decreased appetite (3) Encounter for hospice care discussion: Code(s): Z71.89 - Other specified counseling Status: Acute Assessment and Plan: Family would discuss hospice at discharge from [facility] (4) Suicidal ideation: Code(s): R45.851 - Suicidal ideations Status: Acute Assessment and Plan: Patient evaluated determined that patient should be admitted to [facility] Plans to transfer once bed becomes available (5) Retention of urine: Code(s): R33.9 - Retention of urine, unspecified Status: Acute Assessment and Plan: History Possibly secondary to BPH Continue Proscar Bladder scan postvoid straight cath greater than 300 (6) BPH (benign prostatic hyperplasia): Code(s): N40.0 - Benign prostatic hyperplasia without lower urinary tract symptoms Status: Acute Assessment and Plan: Continue Proscar (7) Hypothyroidism: Code(s): E03.9 - Hypothyroidism, unspecified Status: Chronic Assessment and Plan: Continue Synthroid (8) Port-A-Cath in place: Code(s): Z95.828 - Presence of other vascular implants and grafts Status: Acute (9) GERD (gastroesophageal reflux disease): Code(s): K21.9 - Gastro-esophageal reflux disease without esophagitis Status: Acute Assessment and Plan: Started Protonix (10) Abnormal finding on urinalysis: Code(s): R82.90 - Unspecified abnormal findings in urine Status: Acute Assessment and Plan: Patient with leukocytes, nitrates in urine History of abnormal urinalysis Urine culture pending we will treat if needed (11) ETOHism: Code(s): F10.20 - Alcohol dependence, uncomplicated Status: Acute (12) Squamous cell carcinoma of esophagus: Code(s): C15.9 - Malignant neoplasm of esophagus, unspecified Status: Acute Assessment and Plan: Follow-up with hematology oncology and radiologist oncology (13) Bacteremia: Code(s): R78.81 - Bacteremia Status: Acute Assessment and Plan: Patient with the growth of gram-positive cocci in clusters in 1 blood culture bottle started Rocephin Patient afebrile with WBCs within normal limits Repeat blood culture pending Review of Systems Review of Systems: Narrative: A 14 organ system Review of Systems was performed and pertinent positives included in the HPI, otherwise remaining ROS is negative. Exam Narrative: Exam Narrative: GENERAL: This is a well-nourished, well-developed patient, in no apparent distress. HEAD: normocephalic, atraumatic. EYES: PERRL. Sclera clear/white. Vision is grossly intact. EARS: External ears normal, auditory canals clear and without drainage, TMs normal without perforation. Hearing grossly intact. NOSE: External nose normal with no obvious nasal discharge, nares without redness, no rhinorrhea. THROAT: Mucous membranes moist, posterior pharynx clear. NECK: Neck supple, non-tender without lymphadenopathy, masses or thyromegaly. CARDIOVASCULAR: Regular rate and rhythm without murmurs, gallops, or rubs. RESPIRATORY: Clear to auscultation. Breath sounds equal bilaterally. No wheezes, rales, or rhonchi. GASTROINTESTINAL: Abdomen soft, non-tender, nondistended. Bowel sounds are active. No hepato-splenomegaly, or palpable masses. No guarding. SKIN: warm, intact with no suspicious lesions or rash, good texture and turgor. NEURO: awake, alert, and oriented to person, place and time. There were no obvious focal neurologic abnormalities. EXTREMITIES: Normal range of motion. No edema. No calf te
[2020-07-01 15:29] VITALS: BP 119/75; PULSE 82; RESP 16; TEMP 36.7; O2SAT 99
[2020-07-01] MEDS: RIVAROXABAN 10 MG TABLET 20 MG PO (16:37)
[2020-07-01 16:45] LABS: Glucose Point of Care 113 (65-105)
[2020-07-01] MEDS: traZODone HCL 50 MG TABLET 150 MG PO (21:52)
[2020-07-01] MEDS: FLUTICASONE PROPIONATE 0.05% NA SPR 16 GM BTL (*BKC) 2 SPRAY NASAL (21:53)
[2020-07-02] VITALS: BP 112/67; PULSE 90; RESP 18; TEMP 36.9; O2SAT 96
[2020-07-02] MEDS: LEVOTHYROXINE SODIUM 25 MCG TABLET PO (05:44)
[2020-07-02] MEDS: chlordiazePOXIDE (*CRX) 25 MG CAPSULE PO ×3 (05:44→21:39)
[2020-07-02 08:00] VITALS: BP 139/85; PULSE 92; RESP 18; TEMP 37.1; O2SAT 98
[2020-07-02 08:38] LABS: Glucose Point of Care 93 (65-105)
[2020-07-02] MEDS: ATORVASTATIN 5 MG TABLET PO (08:54)
[2020-07-02] MEDS: POTASSIUM CHLORIDE 20 MEQ TABLET PO ×2 (08:54→17:51)
[2020-07-02] MEDS: TAMSULOSIN HCL 0.4 MG CAPSULE PO (08:54)
[2020-07-02] MEDS: hydrOXYzine HCL 25 MG TABLET PO (08:54)
[2020-07-02] MEDS: MAGNESIUM OXIDE 400 MG TABLET PO (08:54)
[2020-07-02] MEDS: POTASSIUM CHLORIDE 20 MEQ TABLET 40 MEQ PO ×2 (08:54→17:51)
[2020-07-02 08:55] VITALS: PULSE 92
[2020-07-02] MEDS: amLODIPine BESYLATE 5 MG TABLET PO (08:55)
[2020-07-02] MEDS: DICYCLOMINE HCL 10 MG CAPSULE 30 MG PO ×3 (08:55→17:50)
[2020-07-02] MEDS: FOLIC ACID 1 MG TABLET PO (08:55)
[2020-07-02] MEDS: FINASTERIDE 5 MG TABLET PO (08:55)
[2020-07-02] MEDS: METOPROLOL SUCCINATE EXT REL 25 MG TABCR PO (08:55)
[2020-07-02] MEDS: SERTRALINE HCL 50 MG TABLET PO (08:56)
[2020-07-02] MEDS: FERROUS SULFATE 324 MG TABLET PO (08:56)
[2020-07-02] MEDS: MULTIVITAMINS THERAPEUTIC TAB (*BKC) 1 TABLET PO (08:56)
[2020-07-02 09:17] LABS: D Dimer 0.61 mg/L (0.19-0.50)
--- NOTE | 2020-07-02 09:40 | PC.NURSE ---
Spoke with Mahesh from [facility], States that no placement has been able to be found for patient. Patient had been denied due to Cancer Diagnosis. Mahesh spoke with [employer] supervisor about situation. States that if patient is discharge home on hospice as previously spoken about he will have to come and reevaluate patient.
--- NOTE | 2020-07-02 10:17 | P.PN_ITS ---
Progress Note: A&P Assessment and Plan (1) Weakness: Code(s): R53.1 - Weakness Status: Acute Assessment and Plan: * Resolved * Possibly secondary to dehydration versus history of CA (2) Acute dehydration: Code(s): E86.0 - Dehydration Status: Acute Assessment and Plan: * Resolved * Secondary to decreased appetite (3) Encounter for hospice care discussion: Code(s): Z71.89 - Other specified counseling Status: Acute Assessment and Plan: * Family would discuss hospice at discharge from [facility] * Patient will probably transition into hospice on discharge (4) Suicidal ideation: Code(s): R45.851 - Suicidal ideations Status: Acute Assessment and Plan: * Patient evaluated determined that patient should be admitted to [facility] * Plans to transfer once bed becomes available * Will be reevaluated by [facility] (5) Retention of urine: Code(s): R33.9 - Retention of urine, unspecified Status: Acute Assessment and Plan: * History * Possibly secondary to BPH * Continue Proscar * Bladder scan postvoid straight cath greater than 300 (6) BPH (benign prostatic hyperplasia): Qualifiers: Lower urinary tract symptom presence: unspecified whether lower urinary tract symptoms present Qualified Code(s): N40.0 - Benign prostatic hyperplasia without lower urinary tract symptoms Code(s): N40.0 - Benign prostatic hyperplasia without lower urinary tract symptoms Status: Acute Assessment and Plan: * Continue Proscar (7) Hypothyroidism: Qualifiers: Hypothyroidism type: unspecified Qualified Code(s): E03.9 - Hypothyroidism, unspecified Code(s): E03.9 - Hypothyroidism, unspecified Status: Chronic Assessment and Plan: * Continue Synthroid (8) Port-A-Cath in place: Code(s): Z95.828 - Presence of other vascular implants and grafts Status: Acute (9) GERD (gastroesophageal reflux disease): Qualifiers: Esophagitis presence: without esophagitis Qualified Code(s): K21.9 - G bernardino-esophageal reflux disease without esophagitis Code(s): K21.9 - Gastro-esophageal reflux disease without esophagitis Status: Acute Assessment and Plan: * Started Protonix (10) Abnormal finding on urinalysis: Code(s): R82.90 - Unspecified abnormal findings in urine Status: Acute Assessment and Plan: * Patient with leukocytes, nitrates in urine * History of abnormal urinalysis * Urine culture pending we will treat if needed (11) ETOHism: Code(s): F10.20 - Alcohol dependence, uncomplicated Status: Acute (12) Squamous cell carcinoma of esophagus: Code(s): C15.9 - Malignant neoplasm of esophagus, unspecified Status: Acute Assessment and Plan: * Follow-up with hematology oncology and radiologist oncology (13) Bacteremia: Code(s): R78.81 - Bacteremia Status: Acute Assessment and Plan: * Patient with the growth of gram-positive cocci in clusters in 1 blood culture bottle * Discontinued antibiotics blood culture contaminated Review of Systems Review of Systems: Narrative: A 14 organ system Review of Systems was performed and pertinent positives included in the HPI, otherwise remaining ROS is negative. Exam Narrative: Exam Narrative: GENERAL: This is a well-nourished, well-developed patient, in no apparent distress. HEAD: normocephalic, atraumati
--- NOTE | 2020-07-02 10:17 | WPDPN ---
Progress Note: A&P Assessment and Plan (1) Weakness: Code(s): R53.1 - Weakness Status: Acute Assessment and Plan: Resolved Possibly secondary to dehydration versus history of CA (2) Acute dehydration: Code(s): E86.0 - Dehydration Status: Acute Assessment and Plan: Resolved Secondary to decreased appetite (3) Encounter for hospice care discussion: Code(s): Z71.89 - Other specified counseling Status: Acute Assessment and Plan: Family would discuss hospice at discharge from [facility] Patient will probably transition into hospice on discharge (4) Suicidal ideation: Code(s): R45.851 - Suicidal ideations Status: Acute Assessment and Plan: Patient evaluated determined that patient should be admitted to [facility] Plans to transfer once bed becomes available Will be reevaluated by [facility] (5) Retention of urine: Code(s): R33.9 - Retention of urine, unspecified Status: Acute Assessment and Plan: History Possibly secondary to BPH Continue Proscar Bladder scan postvoid straight cath greater than 300 (6) BPH (benign prostatic hyperplasia): Qualifiers: Lower urinary tract symptom presence: unspecified whether lower urinary tract symptoms present Qualified Code(s): N40.0 - Benign prostatic hyperplasia without lower urinary tract symptoms Code(s): N40.0 - Benign prostatic hyperplasia without lower urinary tract symptoms Status: Acute Assessment and Plan: Continue Proscar (7) Hypothyroidism: Qualifiers: Hypothyroidism type: unspecified Qualified Code(s): E03.9 - Hypothyroidism, unspecified Code(s): E03.9 - Hypothyroidism, unspecified Status: Chronic Assessment and Plan: Continue Synthroid (8) Port-A-Cath in place: Code(s): Z95.828 - Presence of other vascular implants and grafts Status: Acute (9) GERD (gastroesophageal reflux disease): Qualifiers: Esophagitis presence: without esophagitis Qualified Code(s): K21.9 - Gastro-esophageal reflux disease without esophagitis Code(s): K21.9 - Gastro-esophageal reflux disease without esophagitis Status: Acute Assessment and Plan: Started Protonix (10) Abnormal finding on urinalysis: Code(s): R82.90 - Unspecified abnormal findings in urine Status: Acute Assessment and Plan: Patient with leukocytes, nitrates in urine History of abnormal urinalysis Urine culture pending we will treat if needed (11) ETOHism: Code(s): F10.20 - Alcohol dependence, uncomplicated Status: Acute (12) Squamous cell carcinoma of esophagus: Code(s): C15.9 - Malignant neoplasm of esophagus, unspecified Status: Acute Assessment and Plan: Follow-up with hematology oncology and radiologist oncology (13) Bacteremia: Code(s): R78.81 - Bacteremia Status: Acute Assessment and Plan: Patient with the growth of gram-positive cocci in clusters in 1 blood culture bottle Discontinued antibiotics blood culture contaminated Review of Systems Review of Systems: Narrative: A 14 organ system Review of Systems was performed and pertinent positives included in the HPI, otherwise remaining ROS is negative. Exam Narrative: Exam Narrative: GENERAL: This is a well-nourished, well-developed patient, in no apparent distress. HEAD: normocephalic, atraumatic. EYES: PERRL. Sclera clear/white. Vision is grossly intact. EARS: External ears normal, auditory canals clear and without drainage, TMs normal without perforation. Hearing grossly intact. NOSE: External nose normal with no obvious nasal discharge, nares without redness, no rhinorrhea. THROAT: Mucous membranes moist, posterior pharynx clear. NECK: Neck supple, non-tender without lymphadenopathy, masses or thyromegaly. CARDIOVASCULAR: Regular rate and rhythm without murmurs,
--- NOTE | 2020-07-02 10:20 | PC.NURSE ---
Morning Rounds completed with Kenton JOE and Dr. Mireles. Decision to discharge patient to home with hospice care made. Mahesh from [facility] contacted to come out and do re-evaluation on patient. Patient aware of situation and states understanding.
--- NOTE | 2020-07-02 12:05 | PC.NURSE ---
Mahesh from [facility] here to re-evaluate patient.
--- NOTE | 2020-07-02 14:42 | ECG_ITS ---
Measurements Intervals [place] Rate: 78 P: 49 DC: 195 QRS: 36 QRSD: 85 T: 35 QT: 378 QTc: 432 Interpretive Statements SINUS RHYTHM EARLY PRECORDIAL R/S TRANSITION BORDERLINE ECG Electronically Signed On 07-03-2020 8:41:48 CDT by Cruz Pickard D.O.
[2020-07-02 15:02] LABS: Hematocrit 29.6 % (40.0-54.0); Hemoglobin 9.4 g/dL (14.0-18.0); Mean Corpuscular HGB Conc 31.8 g/dL (32.0-36.0); Mean Corpuscular Hemoglobin 27.6 pg (27.0-31.0); Mean Corpuscular Volume 87.1 fL (78.0-102.0); Mean Platelet Volume 10.4 fl (8.7-11.0); Platelet Count Result 305 K/mm3 (150-420); Red Cell Distribution Width 15.5 % (11.6-14.4); White Blood Count 7.4 K/mm3 (4.8-10.8)
[2020-07-02 15:09] LABS: INR 1.1; Prothrombin Time 11.7 Seconds (9.50-12.10)
[2020-07-02 15:23] LABS: Alanine Aminotransferase 15 U/L (16-63); Albumin Level 2.1 g/dL (3.4-5.0); Alkaline Phosphatase 52 U/L (46-116); Anion Gap 11 mmol/L (8-16); Aspartate Amino Transferase 11 U/L (15-37); Bilirubin,Total 0.2 mg/dL (0.00-1.00); Blood Urea Nitrogen 7 mg/dL (7-18); Calcium 7.5 mg/dL (8.5-10.1); Carbon Dioxide 25 mmol/L (21-32); Chloride 104 mmol/L (98-108); Estimated CRCL calculation 84 ml/min; Estimated Glomerular Filt Rate > 60; Ethanol < 3 mg/dL (0-6); Glucose 92 mg/dL (70-99); Osmolality Calculated 288 mOsm/kg (285-295); Potassium 4.1 mmol/L (3.5-5.1); Sodium 140 mmol/L (136-145); Thyroid Stimulating Hormone 1.82 uIU/mL (0.36-3.74)
[2020-07-02 16:00] VITALS: BP 124/74; PULSE 83; RESP 18; TEMP 36.5; O2SAT 99
[2020-07-02 16:25] LABS: Amphetamine Screen Urine Negative (Negative); Barbiturate Screen Urine Negative (Negative); Benzodiazepines Screen Urine Positive (Negative); Cannabinoid Screen Urine Negative (Negative); Cocaine Screen Urine Negative (Negative); Methadone Screen Urine Negative (Negative); Opiate Screen Urine Negative (Negative); Phencyclidine Screen Urine Negative (Negative)
[2020-07-02] MEDS: RIVAROXABAN 10 MG TABLET 20 MG PO (17:51)
[2020-07-02 17:59] LABS: Add Urine Microscopic? YES; Appearance Urine Clear (Clear); Bilirubin Urine Negative (Negative); Blood Urine Negative (Negative); Color Urine Yellow (Yellow); Glucose Urine UA Negative (Negative); Ketones Urine Negative (Negative); Leukocyte Esterase Ur 1+ LEU/UL (Negative); Nitrate Urine Negative (Negative); Protein Urine Negative (Negative); Specific Grav Ur 1.015 (1.010-1.020); Urobilinogen Urine 0.2 mg/dL (0.2-1.0)
[2020-07-02 18:01] LABS: RBC Urine 0-2 /hpf (0-2); WBC Urine 0-3 /hpf (0-3)
[2020-07-02 18:01] LABS: Glucose Point of Care 128 (65-105)
[2020-07-02 18:02] LABS: Squamous Epithelial Cell Urine Few /hpf (Few)
[2020-07-02] MEDS: traZODone HCL 50 MG TABLET 150 MG PO (21:38)
[2020-07-02] MEDS: MELATONIN 5 MG TABLET PO (21:38)
[2020-07-02] MEDS: FLUTICASONE PROPIONATE 0.05% NA SPR 16 GM BTL (*BKC) 2 SPRAY NASAL (21:40)
--- NOTE | 2020-07-02 22:17 | PC.NURSE ---
Mahesh from [facility] and has spoken to patient and patient's daughter. Mahesh has called [address] patient for voluntary psych evaluations. Facilities were either closed, full or would not accept due to patient's acuity level.
[2020-07-02 23:51] VITALS: BP 113/61; PULSE 82; RESP 20; TEMP 37.1; O2SAT 96
[2020-07-03] MEDS: chlordiazePOXIDE (*CRX) 25 MG CAPSULE PO ×3 (05:38→21:12)
[2020-07-03] MEDS: LEVOTHYROXINE SODIUM 25 MCG TABLET PO (05:38)
[2020-07-03 08:00] VITALS: BP 113/66; PULSE 105; RESP 20; TEMP 36.6; O2SAT 100
[2020-07-03] MEDS: ATORVASTATIN 5 MG TABLET PO (08:58)
[2020-07-03] MEDS: SERTRALINE HCL 50 MG TABLET PO (08:58)
[2020-07-03] MEDS: TAMSULOSIN HCL 0.4 MG CAPSULE PO (08:58)
[2020-07-03] MEDS: MAGNESIUM OXIDE 400 MG TABLET PO (08:58)
[2020-07-03] MEDS: hydrOXYzine HCL 25 MG TABLET PO (08:58)
[2020-07-03 08:59] VITALS: PULSE 105
[2020-07-03] MEDS: DICYCLOMINE HCL 10 MG CAPSULE 30 MG PO ×3 (08:59→16:48)
[2020-07-03] MEDS: POTASSIUM CHLORIDE 20 MEQ TABLET PO ×2 (08:59→17:00)
[2020-07-03] MEDS: amLODIPine BESYLATE 5 MG TABLET PO (08:59)
[2020-07-03] MEDS: FOLIC ACID 1 MG TABLET PO (08:59)
[2020-07-03] MEDS: MULTIVITAMINS THERAPEUTIC TAB (*BKC) 1 TABLET PO (08:59)
[2020-07-03] MEDS: METOPROLOL SUCCINATE EXT REL 25 MG TABCR PO (08:59)
[2020-07-03] MEDS: FINASTERIDE 5 MG TABLET PO (09:00)
[2020-07-03] MEDS: POTASSIUM CHLORIDE 20 MEQ TABLET 40 MEQ PO ×2 (09:00→16:48)
--- NOTE | 2020-07-03 12:25 | P.PN_ITS ---
Progress Note: A&P Assessment and Plan (1) Weakness: Code(s): R53.1 - Weakness Status: Acute Assessment and Plan: * Resolved * Possibly secondary to dehydration versus history of CA (2) Acute dehydration: Code(s): E86.0 - Dehydration Status: Acute Assessment and Plan: * Resolved * Secondary to decreased appetite (3) Encounter for hospice care discussion: Code(s): Z71.89 - Other specified counseling Status: Acute Assessment and Plan: * Family would discuss hospice at discharge from [facility] * Patient will probably transition into hospice on discharge (4) Suicidal ideation: Code(s): R45.851 - Suicidal ideations Status: Acute Assessment and Plan: * Patient evaluated determined that patient should be admitted to [facility] * Plans to transfer once bed becomes available * [facility] reevaluate yesterday attempted to place patient in 17 [facility] facilities unsuccessful. (5) Retention of urine: Code(s): R33.9 - Retention of urine, unspecified Status: Acute Assessment and Plan: * History * Possibly secondary to BPH * Continue Proscar * Bladder scan postvoid straight cath greater than 300 (6) BPH (benign prostatic hyperplasia): Qualifiers: Lower urinary tract symptom presence: unspecified whether lower urinary tract symptoms present Qualified Code(s): N40.0 - Benign prostatic hyperplasia without lower urinary tract symptoms Code(s): N40.0 - Benign prostatic hyperplasia without lower urinary tract symptoms Status: Acute Assessment and Plan: * Continue Proscar (7) Hypothyroidism: Qualifiers: Hypothyroidism type: unspecified Qualified Code(s): E03.9 - Hypothyroidism, unspecified Code(s): E03.9 - Hypothyroidism, unspecified Status: Chronic Assessment and Plan: * Continue Synthroid (8) Port-A-Cath in place: Code(s): Z95.828 - Presence of other vascular implants and grafts Status: Acute (9) GERD (gastroesophageal reflux disease): Qualifiers: Esophagitis presence: without esophagitis Qualified Code(s): K21.9 - Gastro-esophageal reflux disease without esophagitis Code(s): K21.9 - Gastro-esophageal reflux disease without esophagitis Status: Acute Assessment and Plan: * Started Protonix (10) Abnormal finding on urinalysis: Code(s): R82.90 - Unspecified abnormal findings in urine Status: Acute Assessment and Plan: * Patient with leukocytes, nitrates in urine * History of abnormal urinalysis * Urine culture pending with growth of alcaligenes xylosoxidanas started Bactrim (11) ETOHism: Code(s): F10.20 - Alcohol dependence, uncomplicated Status: Acute (12) Squamous cell carcinoma of esophagus: Code(s): C15.9 - Malignant neoplasm of esophagus, unspecified Status: Acute Assessment and Plan: * Follow-up with hematology oncology and radiologist oncology (13) Bacteremia: Code(s): R78.81 - Bacteremia Status: Acute Assessment and Plan: * Ruled out * Patient with the growth of gram-positive cocci in clusters in 1 blood culture bottle * Discontinued antibiotics blood culture contaminated Review of Systems Review of Systems: Narrative: A 14 organ system Review of Systems was performed and pertinent positives included in the HPI, otherwise remaining ROS is negative. Exam Narrative: Exa
--- NOTE | 2020-07-03 12:25 | WPDPN ---
Progress Note: A&P Assessment and Plan (1) Weakness: Code(s): R53.1 - Weakness Status: Acute Assessment and Plan: Resolved Possibly secondary to dehydration versus history of CA (2) Acute dehydration: Code(s): E86.0 - Dehydration Status: Acute Assessment and Plan: Resolved Secondary to decreased appetite (3) Encounter for hospice care discussion: Code(s): Z71.89 - Other specified counseling Status: Acute Assessment and Plan: Family would discuss hospice at discharge from [facility] Patient will probably transition into hospice on discharge (4) Suicidal ideation: Code(s): R45.851 - Suicidal ideations Status: Acute Assessment and Plan: Patient evaluated determined that patient should be admitted to [facility] Plans to transfer once bed becomes available [address] reevaluate yesterday attempted to place patient in 17 [facility] facilities unsuccessful. (5) Retention of urine: Code(s): R33.9 - Retention of urine, unspecified Status: Acute Assessment and Plan: History Possibly secondary to BPH Continue Proscar Bladder scan postvoid straight cath greater than 300 (6) BPH (benign prostatic hyperplasia): Qualifiers: Lower urinary tract symptom presence: unspecified whether lower urinary tract symptoms present Qualified Code(s): N40.0 - Benign prostatic hyperplasia without lower urinary tract symptoms Code(s): N40.0 - Benign prostatic hyperplasia without lower urinary tract symptoms Status: Acute Assessment and Plan: Continue Proscar (7) Hypothyroidism: Qualifiers: Hypothyroidism type: unspecified Qualified Code(s): E03.9 - Hypothyroidism, unspecified Code(s): E03.9 - Hypothyroidism, unspecified Status: Chronic Assessment and Plan: Continue Synthroid (8) Port-A-Cath in place: Code(s): Z95.828 - Presence of other vascular implants and grafts Status: Acute (9) GERD (gastroesophageal reflux disease): Qualifiers: Esophagitis presence: without esophagitis Qualified Code(s): K21.9 - Gastro-esophageal reflux disease without esophagitis Code(s): K21.9 - Gastro-esophageal reflux disease without esophagitis Status: Acute Assessment and Plan: Started Protonix (10) Abnormal finding on urinalysis: Code(s): R82.90 - Unspecified abnormal findings in urine Status: Acute Assessment and Plan: Patient with leukocytes, nitrates in urine History of abnormal urinalysis Urine culture pending with growth of alcaligenes xylosoxidanas started Bactrim (11) ETOHism: Code(s): F10.20 - Alcohol dependence, uncomplicated Status: Acute (12) Squamous cell carcinoma of esophagus: Code(s): C15.9 - Malignant neoplasm of esophagus, unspecified Status: Acute Assessment and Plan: Follow-up with hematology oncology and radiologist oncology (13) Bacteremia: Code(s): R78.81 - Bacteremia Status: Acute Assessment and Plan: Ruled out Patient with the growth of gram-positive cocci in clusters in 1 blood culture bottle Discontinued antibiotics blood culture contaminated Review of Systems Review of Systems: Narrative: A 14 organ system Review of Systems was performed and pertinent positives included in the HPI, otherwise remaining ROS is negative. Exam Narrative: Exam Narrative: GENERAL: This is a well-nourished, well-developed patient, in no apparent distress. HEAD: normocephalic, atraumatic. EYES: PERRL. Sclera clear/white. Vision is grossly intact. EARS: External ears normal, auditory canals clear and without drainage, TMs normal without perforation. Hearing grossly intact. NOSE: External nose normal with no obvious nasal discharge, nares without redness, no rhinorrhea. THROAT: Mucous membranes moist, posterior pharynx clear. NECK: Neck
[2020-07-03 15:53] VITALS: BP 111/68; PULSE 87; RESP 18; TEMP 36.6; O2SAT 99
[2020-07-03] MEDS: RIVAROXABAN 10 MG TABLET 20 MG PO (16:47)
[2020-07-03 16:53] LABS: Glucose Point of Care 120 (65-105)
[2020-07-03] MEDS: FLUTICASONE PROPIONATE 0.05% NA SPR 16 GM BTL (*BKC) 2 SPRAY NASAL (21:11)
[2020-07-03] MEDS: traZODone HCL 50 MG TABLET 150 MG PO (21:11)
[2020-07-03] MEDS: MELATONIN 5 MG TABLET PO (21:12)
[2020-07-04] VITALS: BP 102/61; PULSE 88; RESP 22; TEMP 37.2; O2SAT 94
[2020-07-04] MEDS: LEVOTHYROXINE SODIUM 25 MCG TABLET PO (05:36)
[2020-07-04] MEDS: chlordiazePOXIDE (*CRX) 25 MG CAPSULE PO ×3 (05:36→21:02)
[2020-07-04 05:57] LABS: Estimated CRCL calculation 87 ml/min; Estimated Glomerular Filt Rate > 60
[2020-07-04 07:49] LABS: Glucose Point of Care 113 (65-105)
[2020-07-04 07:51] VITALS: BP 115/71; PULSE 100; RESP 16; TEMP 36.6; O2SAT 99
--- NOTE | 2020-07-04 08:54 | P.PN_ITS ---
Progress Note: A&P Assessment and Plan (1) Weakness: Code(s): R53.1 - Weakness <KINGA Holguin-C - Last Filed: 07/04/20 08:56> Status: Acute <KINGA Holguin-C - Last Filed: 07/04/20 08:56> Assessment and Plan: * Resolved * Possibly secondary to dehydration versus history of CA <KINGA Holguin- C - Last Filed: 07/04/20 08:56> (2) Acute dehydration: Code(s): E86.0 - Dehydration <TORO HolguinP-C - Last Filed: 07/04/20 08:56> Status: Acute <KINGA Holguin-C - Last Filed: 07/04/20 08:56> Assessment and Plan: * Resolved * Secondary to decreased appetite <KINGA Holguin-C - Last Filed: 07/04/20 08:56> (3) Encounter for hospice care discussion: Code(s): Z71.89 - Other specified counseling <KINGA Holguin-C - Last Filed: 07/04/20 08:56> Status: Acute <KINGA Holguin-C - Last Filed: 07/04/20 08:56> Assessment and Plan: * Family would discuss hospice at discharge from [facility] * Patient will probably transition into hospice on discharge <Kenton Burris KINGA-C - Last Filed: 07/04/20 08:56> (4) Suicidal ideation: Code(s): R45.851 - Suicidal ideations <Kenton Burris KINGA-C - Last Filed: 07/04/20 08:56> Status: Acute <TORO HolguinP-C - Last Filed: 07/04/20 08:56> Assessment and Plan: * Patient evaluated determined that patient should be admitted to behavioral health * Plans to transfer once bed becomes available * [facility] reevaluate yesterday attempted to place patient in 17 behavioral health facilities unsuccessful. <Kenton Burris KINGA-C - Last Filed: 07/04/20 08:56> (5) Retention of urine: Code(s): R33.9 - Retention of urine, unspecified <Kenton YemiKELLY SosaC - Last Filed: 07/04/20 08:56> Status: Acute <Yassinekhai YemiJIMENA Sosa - Last Filed: 07/04/20 08:56> Assessment and Plan: * History * Possibly secondary to BPH * Continue Proscar * Bladder scan postvoid straight cath greater than 300 <JIMENA Holguin - Last Filed: 07/04/20 08:56> (6) BPH (benign prostatic hyperplasia): Qualifiers: Lower urinary tract symptom presence: unspecified whether lower urinary tract symptoms present Qualified Code(s): N40.0 - Benign prostatic hyperplasia without lower urinary tract symptoms <Kenton YemiJIMENA Sosa - Last Filed: 07/04/20 08:56> Code(s): N40.0 - Benign prostatic hyperplasia without lower urinary tract symptoms <KELLY HolguinC - Last Filed: 07/04/20 08:56> Status: Acute <Kenton YemiJIMENA Sosa - Last Filed: 07/04/20 08:56> Assessment and Plan: * Continue Proscar <Kenton YemiJIMENA Sosa - Last Filed: 07/04/20 08:56> (7) Hypothyroidism: Qualifiers: Hypothyroidism type: unspecified Qualified Code(s): E03.9 - Hypothyroidism, unspecified <JIMENA Holguin - Last Filed: 07/04/20 08:56> Code(s): E03.9 - Hypothyroidism, unspecified <JIMENA Holguin - Last Filed: 07/04/20 08:56> Status: Chronic <JIMENA Holguin - Last Filed: 07/04/20 08:56> Assessment and Plan: * Continue Synthroid <JIMENA Holguin - Last Filed: 07/04/20 08:56> (8) Port-A-Cath in place: Code(s): Z95.828 - Presence of other vascular implants and grafts <JIMENA Holguin - Last Filed: 07/04/20 08:56> Status: Acute <KINGA Holguin-C - Last Filed: 07/04/20 08:56>
--- NOTE | 2020-07-04 08:54 | WPDPN ---
Progress Note: A&P Assessment and Plan (1) Weakness: Code(s): R53.1 - Weakness <Kenton BurrisKINGA-C - Last Filed: 07/04/20 08:56> Status: Acute <Kenton BurrisKINGA-C - Last Filed: 07/04/20 08:56> Assessment and Plan: Resolved Possibly secondary to dehydration versus history of CA <Yassinekhai YemiKINGA Sosa-C - Last Filed: 07/04/20 08:56> (2) Acute dehydration: Code(s): E86.0 - Dehydration <Kenton BurrisTOROP-C - Last Filed: 07/04/20 08:56> Status: Acute <Kenton BurrisKINGA-C - Last Filed: 07/04/20 08:56> Assessment and Plan: Resolved Secondary to decreased appetite <Yassinekhai YemiKINGA Sosa-C - Last Filed: 07/04/20 08:56> (3) Encounter for hospice care discussion: Code(s): Z71.89 - Other specified counseling <Kenton BraggKINGA Sosa-C - Last Filed: 07/04/20 08:56> Status: Acute <Kenton BraggMarcelina DaytonKINGA-C - Last Filed: 07/04/20 08:56> Assessment and Plan: Family would discuss hospice at discharge from [facility] Patient will probably transition into hospice on discharge <KINGA Holguin-C - Last Filed: 07/04/20 08:56> (4) Suicidal ideation: Code(s): R45.851 - Suicidal ideations <Kenton YemiKINGA Sosa-C - Last Filed: 07/04/20 08:56> Status: Acute <Kenton BurrisTOROP-C - Last Filed: 07/04/20 08:56> Assessment and Plan: Patient evaluated determined that patient should be admitted to behavioral health Plans to transfer once bed becomes available [address] reevaluate yesterday attempted to place patient in 17 behavioral health facilities unsuccessful. <KINGA Holguin-C - Last Filed: 07/04/20 08:56> (5) Retention of urine: Code(s): R33.9 - Retention of urine, unspecified <Kenton Burris BURIAL VAULT MAKER-C - Last Filed: 07/04/20 08:56> Status: Acute <Kenton Sutherland JIMENA Burris - Last Filed: 07/04/20 08:56> Assessment and Plan: History Possibly secondary to BPH Continue Proscar Bladder scan postvoid straight cath greater than 300 <Yassinekhai YemiKINGA Sosa-C - Last Filed: 07/04/20 08:56> (6) BPH (benign prostatic hyperplasia): Qualifiers: Lower urinary tract symptom presence: unspecified whether lower urinary tract symptoms present Qualified Code(s): N40.0 - Benign prostatic hyperplasia without lower urinary tract symptoms <Kenton YemiKELLY SosaC - Last Filed: 07/04/20 08:56> Code(s): N40.0 - Benign prostatic hyperplasia without lower urinary tract symptoms <Kenton YemiKELLY SosaC - Last Filed: 07/04/20 08:56> Status: Acute <Kenton YemiKELLY SosaC - Last Filed: 07/04/20 08:56> Assessment and Plan: Continue Proscar <Yassinekhai YemiJIMENA Sosa - Last Filed: 07/04/20 08:56> (7) Hypothyroidism: Qualifiers: Hypothyroidism type: unspecified Qualified Code(s): E03.9 - Hypothyroidism, unspecified <Yassinekhai YemiKELLY SosaC - Last Filed: 07/04/20 08:56> Code(s): E03.9 - Hypothyroidism, unspecified <KELLY HolguinC - Last Filed: 07/04/20 08:56> Status: Chronic <Kenton YemiKELLY SosaC - Last Filed: 07/04/20 08:56> Assessment and Plan: Continue Synthroid <KINGA Holguin-C - Last Filed: 07/04/20 08:56> (8) Port-A-Cath in place: Code(s): Z95.828 - Presence of other vascular implants and grafts <KELLY HolguinC - Last Filed: 07/04/20 08:56> Status: Acute <JIMENA Holguin - Last Filed: 07/04/20 08:56> (9) GERD (gastroesophageal reflux disease): Qualifiers: Esophagitis presence: without esophagitis Qualified Code(s): K21.9 - Gastro-esophageal reflux disease without esophagitis <JIMENA Holguin Filed: 07/04/20 08:56> Code(s): K21.9 - Gastro-esophageal reflux disease without esophagitis <JIMENA Holguin
[2020-07-04] MEDS: POTASSIUM CHLORIDE 20 MEQ TABLET PO ×2 (09:17→17:12)
[2020-07-04] MEDS: POTASSIUM CHLORIDE 20 MEQ TABLET 40 MEQ PO ×2 (09:17→17:07)
[2020-07-04] MEDS: ATORVASTATIN 5 MG TABLET PO (09:17)
[2020-07-04 09:18] VITALS: PULSE 100
[2020-07-04] MEDS: DICYCLOMINE HCL 10 MG CAPSULE 30 MG PO ×3 (09:18→17:06)
[2020-07-04] MEDS: METOPROLOL SUCCINATE EXT REL 25 MG TABCR PO (09:18)
[2020-07-04] MEDS: SERTRALINE HCL 50 MG TABLET PO (09:18)
[2020-07-04] MEDS: MULTIVITAMINS THERAPEUTIC TAB (*BKC) 1 TABLET PO (09:19)
[2020-07-04] MEDS: FOLIC ACID 1 MG TABLET PO (09:19)
[2020-07-04] MEDS: hydrOXYzine HCL 25 MG TABLET PO (09:19)
[2020-07-04] MEDS: MAGNESIUM OXIDE 400 MG TABLET PO (09:19)
[2020-07-04] MEDS: FERROUS SULFATE 324 MG TABLET PO (09:19)
[2020-07-04] MEDS: TAMSULOSIN HCL 0.4 MG CAPSULE PO (09:19)
[2020-07-04] MEDS: amLODIPine BESYLATE 5 MG TABLET PO (09:19)
[2020-07-04] MEDS: FINASTERIDE 5 MG TABLET PO (09:19)
[2020-07-04 16:00] VITALS: BP 122/75; PULSE 97; RESP 16; TEMP 36.6; O2SAT 98
[2020-07-04 16:14] LABS: Glucose Point of Care 113 (65-105)
[2020-07-04] MEDS: RIVAROXABAN 10 MG TABLET 20 MG PO (17:06)
[2020-07-04] MEDS: FLUTICASONE PROPIONATE 0.05% NA SPR 16 GM BTL (*BKC) 2 SPRAY NASAL (20:57)
[2020-07-04] MEDS: traZODone HCL 50 MG TABLET 150 MG PO (21:13)
[2020-07-05] VITALS: BP 120/61; PULSE 92; RESP 20; TEMP 36.8; O2SAT 97
--- NOTE | 2020-07-05 04:39 | ED.PSYCH ---
HPI - Psych General Source: patient History of Present Illness HPI Narrative: Patient remains waiting on bed placement with psychiatric [facility]. Related Data Home Medications Medication Instructions Recorded Confirmed atorvastatin 5 mg PO DAILY 06/30/19 06/28/20 folic acid 1 mg PO DAILY 12/10/19 06/28/20 melatonin 5 mg PO HS PRN 03/29/20 06/28/20 dicyclomine 30 mg PO TID 06/28/20 06/28/20 hydroxyzine HCl 25 mg PO DAILY 06/28/20 06/28/20 metoprolol succinate 25 mg PO DAILY 06/28/20 06/28/20 multivitamin [Daily-Stuart] 1 tablet PO DAILY 06/28/20 06/28/20 potassium chloride [Klor-Con M20] 20 meq PO DAILY 06/28/20 06/28/20 rivaroxaban [Xarelto] 20 mg PO DAILY 06/28/20 06/28/20 Allergies Allergy/AdvReac Type Severity Reaction Status Date / Time No Known Allergies Allergy Verified 06/28/20 14:51 [facility] Past Medical History Medical History Abnormal colonoscopy Abnormal EKG Acute hypokalemia Acute UTI Alcohol abuse Anxiety Benign prostatic hyperplasia Chronic anemia Compression fracture Including thoracic and lumbar compression fractures. Deep venous thrombosis Left femoral vein, left internal jugular, and let axillary veins noted on ultrasound in May 2019. Hepatic steatosis Hypertension Hypomagnesemia Hypothyroidism Kidney stones Major depression Nicotine use disorder Peptic ulcer disease Remote history of perforated peptic ulcer status post partial gastrectomy. Peripheral neuropathy Substance abuse Suicidal ideation Thyroid cancer Status post partial thyroidectomy. Previously on levothyroxine. Type 2 VA (myocardial infarction) (~08/2016) No ischemic cardiac evaluation was undertaken. Surgical History Surgical History H/O esophagogastroduodenoscopy History of cholecystectomy History of hernia repair Multiple ventral hernia repairs including incisional hernia repair, some with mesh. History of partial gastrectomy For perforated peptic ulcer. History of partial thyroidectomy For thyroid cancer. Family History Family History Father Cancer Mother Dementia Father Family history of malignant neoplasm Mother Family history of Alzheimer's disease Social History Social History Social History: patient has 2 children a son and a daughter. Patient is disable Surrogate decision maker: Shannan Lyons, daughter who is his durable power corporate associate attorney for healthcare. he says that he still smokes about 2-6 cigarettes a day. Last time the patient drink alcohol was about 3 days ago. The patient is . Code status: Full code. Smoking packs per day: 0.5 Smoking cigarettes per day: 10.0 Years smoked: 45 Smoking pack-years: 22.50 Smoking status: Current every day smoker Tobacco type: cigarettes Second hand tobacco smoke exposure: Yes Additional smoking assessment comments: Typically smokes between 2 and 6 cigarettes a day. Alcohol intake: former Drinks per week: 0 Substance use: never Substance use type: does not use Additional living arrangements comments: Lives alone in [place]. Additional occupation/education comments: On disability. Gender identity (if verbalized by the patient): Male Spiritual care concerns: No Agree to blood products: Yes Course Vital Signs Vital signs: Vital Signs Temperature 36.2 C L 06/28/20 14:42 Pulse Rate 126 H 06/28/20 14:42 Respiratory Rate 24 H 06/28/20 14:42 Blood Pressure 164/109 H 06/28/20 14:42 Pulse Oximetry 98 06/28/20 14:42 Temperature 36.8 C 07/05/20 00:00 Pulse Rate 92 07/05/20 00:00 Respiratory Rate 20 07/05/20 00:00 Blood Pressure 120/61 07/05/20 00:00 Pulse Oximetry 97 07/05/20 00:00 MDM - Psych Lab Data Result diagrams: 07/02/20 08:40
[2020-07-05] MEDS: LEVOTHYROXINE SODIUM 25 MCG TABLET PO (05:55)
[2020-07-05] MEDS: chlordiazePOXIDE (*CRX) 25 MG CAPSULE PO ×3 (05:55→21:30)
[2020-07-05 07:56] VITALS: BP 124/76; PULSE 111; RESP 18; TEMP 37.2; O2SAT 96
[2020-07-05 07:57] LABS: Glucose Point of Care 95 (65-105)
[2020-07-05] MEDS: SERTRALINE HCL 50 MG TABLET PO (08:40)
[2020-07-05] MEDS: TAMSULOSIN HCL 0.4 MG CAPSULE PO (08:40)
[2020-07-05] MEDS: ATORVASTATIN 5 MG TABLET PO (08:40)
[2020-07-05] MEDS: POTASSIUM CHLORIDE 20 MEQ TABLET 40 MEQ PO ×2 (08:40→17:12)
[2020-07-05 08:41] VITALS: PULSE 111
[2020-07-05] MEDS: DICYCLOMINE HCL 10 MG CAPSULE 30 MG PO ×3 (08:41→17:12)
[2020-07-05] MEDS: MAGNESIUM OXIDE 400 MG TABLET PO (08:41)
[2020-07-05] MEDS: POTASSIUM CHLORIDE 20 MEQ TABLET PO ×2 (08:41→17:11)
[2020-07-05] MEDS: METOPROLOL SUCCINATE EXT REL 25 MG TABCR PO (08:41)
[2020-07-05] MEDS: amLODIPine BESYLATE 5 MG TABLET PO (08:42)
[2020-07-05] MEDS: hydrOXYzine HCL 25 MG TABLET PO (08:42)
[2020-07-05] MEDS: FOLIC ACID 1 MG TABLET PO (08:43)
[2020-07-05] MEDS: FINASTERIDE 5 MG TABLET PO (08:43)
[2020-07-05] MEDS: MULTIVITAMINS THERAPEUTIC TAB (*BKC) 1 TABLET PO (08:43)
--- NOTE | 2020-07-05 11:03 | P.PNIM_ITS ---
Progress Note: A&P Assessment and Plan (1) Weakness: Code(s): R53.1 - Weakness <Harsh WeiSTEVE-C - Last Filed: 07/05/20 11:31> Status: Acute <SEAN GrijalvaN-C - Last Filed: 07/05/20 11:31> Assessment and Plan: * Resolved * Possibly secondary to dehydration versus history of CA 07/05/2020 Pt has PT/OT orders to increase strength and stamina <Harsh WeiAIDEC - Last Filed: 07/05/20 11:31> (2) Acute dehydration: Code(s): E86.0 - Dehydration <Harsh WeiSTEVE-C - Last Filed: 07/05/20 11:31> Status: Acute <Harsh WeiSTEVE-C - Last Filed: 07/05/20 11:31> Assessment and Plan: * Resolved * Secondary to decreased appetite 07/05/2020 Will repeat labs in the AM, charting indicates good oral intake <Harsh WeiAIDEC - Last Filed: 07/05/20 11:31> (3) Encounter for hospice care discussion: Code(s): Z71.89 - Other specified counseling <Harsh WeiAIDEC - Last Filed: 07/05/20 11:31> Status: Acute <Harsh WeiSTEVE-C - Last Filed: 07/05/20 11:31> Assessment and Plan: * Family would discuss hospice at discharge from [facility] * Patient will probably transition into hospice on discharge 07/05/2020 Case management following <Harsh WeiAIDEC - Last Filed: 07/05/20 11:31> (4) Suicidal ideation: Code(s): R45.851 - Suicidal ideations <Harsh WeiSTEVE-C - Last Filed: 07/05/20 11:31> Status: Acute <Harsh WeiSTEVE-C - Last Filed: 07/05/20 11:31> Assessment and Plan: * Patient evaluated determined that patient should be admitted to behavioral health * Plans to transfer once bed becomes available * [facility] reevaluate yesterday attempted to place patient in 17 behavioral health facilities unsuccessful. <Harsh Wei CONSUMER INSIGHT ANALYST-C - Last Filed: 07/05/20 11:31> (5) Retention of urine: Code(s): R33.9 - Retention of urine, unspecified <Harsh Wei CONSUMER INSIGHT ANALYST-C - Last Filed: 07/05/20 11:31> Status: Acute <Harsh Wei CONSUMER INSIGHT ANALYST-C - Last Filed: 07/05/20 11:31> Assessment and Plan: * History * Possibly secondary to BPH * Continue Proscar * Bladder scan postvoid straight cath greater than 300 07/05/2020 Pt does not have any lower abdominal pain today, urine output 1.44 mL/kg/hr <Harsh Wei CONSUMER INSIGHT ANALYST-C - Last Filed: 07/05/20 11:31> (6) BPH (benign prostatic hyperplasia): Qualifiers: Lower urinary tract symptom presence: unspecified whether lower urinary tract symptoms present Qualified Code(s): N40.0 - Benign prostatic hyperplasia without lower urinary tract symptoms <Harsh Wei CONSUMER INSIGHT ANALYST-C - Last Filed: 07/05/20 11:31> Code(s): N40.0 - Benign prostatic hyperplasia without lower urinary tract symptoms <Harsh Wei CONSUMER INSIGHT ANALYST-C - Last Filed: 07/05/20 11:31> Status: Acute <Harsh Wei CONSUMER INSIGHT ANALYST-C - Last Filed: 07/05/20 11:31> Assessment and Plan: * Continue Proscar <Harsh Wei CONSUMER INSIGHT ANALYST-C - Last Filed: 07/05/20 11:31> (7) Hypothyroidism: Qualifiers: Hypothyroidism type: unspecified Qualified Code(s): E03.9 - Hypothyroidism, unspecified <Harsh Andersonjeremiah CONSUMER INSIGHT ANALYST-C - Last Filed: 07/05/20 11:31> Code(s): E03.9 - Hypothyroidism, unspecified <Harsh Wei CONSUMER INSIGHT ANALYST-C - Last Filed: 07/05/20 11:31> Status: Chronic <Harsh Wei CONSUMER INSIGHT ANALYST-C - Last Filed: 07/05/20 11:31> Assessment and Plan: * Continue Synthroid <Harsh Wray Sanjuana CONSUMER INSIGHT ANALYST-C - Last Filed: 07/05/20 11:31> (8) Port-A-Cath
--- NOTE | 2020-07-05 11:03 | PM.IMPN ---
Progress Note: A&P Assessment and Plan (1) Weakness: Code(s): R53.1 - Weakness <Harsh AndersonCHUCK daniels - Last Filed: 07/05/20 11:31> Status: Acute <Harsh WeiCHUCK - Last Filed: 07/05/20 11:31> Assessment and Plan: Resolved Possibly secondary to dehydration versus history of CA 07/05/2020 Pt has PT/OT orders to increase strength and stamina <Harsh Wray CHUCK Wei - Last Filed: 07/05/20 11:31> (2) Acute dehydration: Code(s): E86.0 - Dehydration <Harsh AndersonCHUCK daniels - Last Filed: 07/05/20 11:31> Status: Acute <Harsh AndersonCHUCK daniels - Last Filed: 07/05/20 11:31> Assessment and Plan: Resolved Secondary to decreased appetite 07/05/2020 Will repeat labs in the AM, charting indicates good oral intake <Harsh Wray CHUCK Wei - Last Filed: 07/05/20 11:31> (3) Encounter for hospice care discussion: Code(s): Z71.89 - Other specified counseling <Harsh Wray CHUCK Wei - Last Filed: 07/05/20 11:31> Status: Acute <Harsh Wray CHUCK Wei - Last Filed: 07/05/20 11:31> Assessment and Plan: Family would discuss hospice [facility] Patient will probably transition into hospice on discharge 07/05/2020 Case management following <Harsh AndersonCHUCK daniels - Last Filed: 07/05/20 11:31> (4) Suicidal ideation: Code(s): R45.851 - Suicidal ideations <Harsh CamposCHUCK Hernández - Last Filed: 07/05/20 11:31> Status: Acute <Harsh Wray CHUCK Wei - Last Filed: 07/05/20 11:31> Assessment and Plan: Patient evaluated determined that patient should be admitted to behavioral health Plans to transfer once bed becomes available [address] reevaluate yesterday attempted to place patient in 17 behavioral health facilities unsuccessful. <Harsh Wei TIRE MANAGER-C - Last Filed: 07/05/20 11:31> (5) Retention of urine: Code(s): R33.9 - Retention of urine, unspecified <Harsh Wei TIRE MANAGER-C - Last Filed: 07/05/20 11:31> Status: Acute <Harsh Wei TIRE MANAGER-C - Last Filed: 07/05/20 11:31> Assessment and Plan: History Possibly secondary to BPH Continue Proscar Bladder scan postvoid straight cath greater than 300 07/05/2020 Pt does not have any lower abdominal pain today, urine output 1.44 mL/kg/hr <Harsh Wei TIRE MANAGER-C - Last Filed: 07/05/20 11:31> (6) BPH (benign prostatic hyperplasia): Qualifiers: Lower urinary tract symptom presence: unspecified whether lower urinary tract symptoms present Qualified Code(s): N40.0 - Benign prostatic hyperplasia without lower urinary tract symptoms <Harsh Wei TIRE MANAGER-C - Last Filed: 07/05/20 11:31> Code(s): N40.0 - Benign prostatic hyperplasia without lower urinary tract symptoms <Harsh Wei TIRE MANAGER-C - Last Filed: 07/05/20 11:31> Status: Acute <Harsh WeiSEANN-C - Last Filed: 07/05/20 11:31> Assessment and Plan: Continue Proscar <Harsh Wei TIRE MANAGER-C - Last Filed: 07/05/20 11:31> (7) Hypothyroidism: Qualifiers: Hypothyroidism type: unspecified Qualified Code(s): E03.9 - Hypothyroidism, unspecified <Harsh Wei TIRE MANAGER-C - Last Filed: 07/05/20 11:31> Code(s): E03.9 - Hypothyroidism, unspecified <Harsh Wei TIRE MANAGER-C - Last Filed: 07/05/20 11:31> Status: Chronic <Harsh Wei TIRE MANAGER-C - Last Filed: 07/05/20 11:31> Assessment and Plan: Continue Synthroid <Harsh Wei TIRE MANAGER-C - Last Filed: 07/05/20 11:31> (8) Port-A-Cath in place: Code(s): Z95.828 - Presence of other vascular implants and grafts <CHUCK Grijalva - Last Filed: 07/05/20 11:31> Status: Acute <CHUCK Grijalva - Last Filed: 07/05/20 11:31> (9) GERD (gastroesophageal reflux disease): Qualifiers: Esophagitis presence: without esophagitis Qualified Cod
[2020-07-05 15:34] LABS: Glucose Point of Care 108 (65-105)
[2020-07-05 16:00] VITALS: BP 110/90; PULSE 93; RESP 18; TEMP 36.6; O2SAT 99
--- NOTE | 2020-07-05 17:03 | PC.NURSE ---
conveyor worker from [place] called and talked with patient and informed this nurse that they can not meet his needs. torin irving
[2020-07-05] MEDS: RIVAROXABAN 10 MG TABLET 20 MG PO (17:12)
[2020-07-05 17:18] LABS: Glucose Point of Care 102 (65-105)
[2020-07-05] MEDS: traZODone HCL 50 MG TABLET 150 MG PO (21:30)
[2020-07-05] MEDS: FLUTICASONE PROPIONATE 0.05% NA SPR 16 GM BTL (*BKC) 2 SPRAY NASAL (21:31)
[2020-07-06] VITALS: BP 100/68; PULSE 86; RESP 18; TEMP 36.3; O2SAT 97
[2020-07-06] MEDS: LEVOTHYROXINE SODIUM 25 MCG TABLET PO (05:36)
[2020-07-06] MEDS: chlordiazePOXIDE (*CRX) 25 MG CAPSULE PO ×3 (05:36→21:26)
[2020-07-06 05:39] LABS: Hematocrit 26.1 % (40.0-54.0); Hemoglobin 8.1 g/dL (14.0-18.0); Mean Corpuscular Hemoglobin 27.2 pg (27.0-31.0); Mean Corpuscular Volume 87.6 fL (78.0-102.0); Mean Platelet Volume 9.5 fl (8.7-11.0); Platelet Count Result 285 K/mm3 (150-420); Red Blood Count 2.98 M/mm3 (4.70-6.10); Red Cell Distribution Width 15.4 % (11.6-14.4); White Blood Count 5.8 K/mm3 (4.8-10.8)
[2020-07-06 05:46] LABS: Anion Gap 5 mmol/L (8-16); Blood Urea Nitrogen 15 mg/dL (7-18); Calcium 8.2 mg/dL (8.5-10.1); Carbon Dioxide 25 mmol/L (21-32); Chloride 105 mmol/L (98-108); Estimated CRCL calculation 76 ml/min; Estimated Glomerular Filt Rate > 60; Glucose 100 mg/dL (70-99); Osmolality Calculated 280 mOsm/kg (285-295); Potassium 4.7 mmol/L (3.5-5.1); Sodium 135 mmol/L (136-145)
[2020-07-06 07:59] VITALS: BP 116/78; PULSE 98; RESP 18; TEMP 36.7; O2SAT 98
[2020-07-06 08:40] VITALS: PULSE 98
[2020-07-06] MEDS: ATORVASTATIN 5 MG TABLET PO (08:40)
[2020-07-06] MEDS: METOPROLOL SUCCINATE EXT REL 25 MG TABCR PO (08:40)
[2020-07-06] MEDS: MULTIVITAMINS THERAPEUTIC TAB (*BKC) 1 TABLET PO (08:40)
[2020-07-06] MEDS: MAGNESIUM OXIDE 400 MG TABLET PO (08:41)
[2020-07-06] MEDS: FOLIC ACID 1 MG TABLET PO (08:41)
[2020-07-06] MEDS: POTASSIUM CHLORIDE 20 MEQ TABLET PO ×2 (08:41→16:55)
[2020-07-06] MEDS: TAMSULOSIN HCL 0.4 MG CAPSULE PO (08:41)
[2020-07-06] MEDS: DICYCLOMINE HCL 10 MG CAPSULE 30 MG PO ×3 (08:41→16:55)
[2020-07-06] MEDS: SERTRALINE HCL 50 MG TABLET PO (08:41)
[2020-07-06] MEDS: POTASSIUM CHLORIDE 20 MEQ TABLET 40 MEQ PO ×2 (08:42→16:55)
[2020-07-06] MEDS: FERROUS SULFATE 324 MG TABLET PO (08:42)
[2020-07-06] MEDS: amLODIPine BESYLATE 5 MG TABLET PO (08:42)
[2020-07-06] MEDS: hydrOXYzine HCL 25 MG TABLET PO (08:42)
[2020-07-06] MEDS: FINASTERIDE 5 MG TABLET PO (08:42)
[2020-07-06 11:49] LABS: Glucose Point of Care 111 (65-105)
--- NOTE | 2020-07-06 14:46 | P.PNIM_ITS ---
Progress Note: A&P Assessment and Plan (1) Weakness: Code(s): R53.1 - Weakness <Harsh Wray STEVE Wei-C - Last Filed: 07/06/20 15:08> Status: Acute <Harsh Wray STEVE Wei-C - Last Filed: 07/06/20 15:08> Assessment and Plan: * Resolved * Possibly secondary to dehydration versus history of CA 07/05/2020 Pt has PT/OT orders to increase strength and stamina 07/06/2020 Pt continues to work with PT/OT, remains weak and depressed <Harsh CamposMarcelina Wei APN-C - Last Filed: 07/06/20 15:08> (2) Acute dehydration: Code(s): E86.0 - Dehydration <Harsh CamposMarcelina Wei APN-C - Last Filed: 07/06/20 15:08> Status: Acute <Harsh CamposMarcelina Wei APN-C - Last Filed: 07/06/20 15:08> Assessment and Plan: * Resolved * Secondary to decreased appetite 07/05/2020 Will repeat labs in the AM, charting indicates good oral intake 07/06/2020 Pt may benefit from Megace or Marinol d/t esophageal CA <Harsh CamposMarcelina Wei APN-C - Last Filed: 07/06/20 15:08> (3) Encounter for hospice care discussion: Code(s): Z71.89 - Other specified counseling <Harsh CamposMarcelina Wei APN-C - Last Filed: 07/06/20 15:08> Status: Acute <Harsh CamposMarcelina Wei APN-C - Last Filed: 07/06/20 15:08> Assessment and Plan: * Family would discuss hospice at discharge from [facility] * Patient will probably transition into hospice on discharge 07/05/2020 Case management following 07/06/2020 ... <Harsh AndresMarcelina Wei APN-C - Last Filed: 07/06/20 15:08> (4) Suicidal ideation: Code(s): R45.851 - Suicidal ideations <Harsh AndresMarcelina Wei APN-C - Last Filed: 07/06/20 15:08> Status: Acute <Harsh AndresMarcelina Wei APN-C - Last Filed: 07/06/20 15:08> Assessment and Plan: * Patient evaluated determined that patient should be admitted to behavioral health * Plans to transfer once bed becomes available * [facility] reevaluate yesterday attempted to place patient in 17 behavioral health facilities unsuccessful. 07/06/2020 Informed that Pt signed a Safety Agreement for [facility] coordinator today <Harsh Wei LICENSED PSYCHOLOGIST MANAGER-C - Last Filed: 07/06/20 15:08> (5) Retention of urine: Code(s): R33.9 - Retention of urine, unspecified <Harsh Wei, LICENSED PSYCHOLOGIST MANAGER-C - Last Filed: 07/06/20 15:08> Status: Acute <Harsh Nils Wei, LICENSED PSYCHOLOGIST MANAGER-C - Last Filed: 07/06/20 15:08> Assessment and Plan: * History * Possibly secondary to BPH * Continue Proscar * Bladder scan postvoid straight cath greater than 300 07/05/2020 Pt does not have any lower abdominal pain today, urine output 1.44 mL/kg/hr 07/06/2020 Renal function good, no lower abdominal pain <Harsh Wei, LICENSED PSYCHOLOGIST MANAGER-C - Last Filed: 07/06/20 15:08> (6) BPH (benign prostatic hyperplasia): Qualifiers: Lower urinary tract symptom presence: unspecified whether lower urinary tract symptoms present Qualified Code(s): N40.0 - Benign prostatic hyperplasia without lower urinary tract symptoms <Harsh Wei, LICENSED PSYCHOLOGIST MANAGER-C - Last Filed: 07/06/20 15:08> Code(s): N40.0 - Benign prostatic hyperplasia without lower urinary tract symptoms <Harsh Wei, LICENSED PSYCHOLOGIST MANAGER-C - Last Filed: 07/06/20 15:08> Status: Acute <Harsh SMarcelina Wei, LICENSED PSYCHOLOGIST MANAGER-C - Last Filed: 07/06/20 15:08> Assessment and Plan: * Continue Proscar <Harsh Nils Wei, LICENSED PSYCHOLOGIST MANAGER-C - Last Filed: 07/06/20 15:08> (7) Hypothyroidism: Qualifiers: Hypothyroidism type: unspecified Qualified Code(s): E03.9 - Hypothyroidism, unspecified <Harsh Wei, LICENSED PSYCHOLOGIST MANAGER-C - Last Filed: 07/06/20 15:08> Code(s): E03.9
--- NOTE | 2020-07-06 14:46 | PM.IMPN ---
Progress Note: A&P Assessment and Plan (1) Weakness: Code(s): R53.1 - Weakness <Harsh CamposMarcelina Wei APN-C - Last Filed: 07/06/20 15:08> Status: Acute <Harsh Wray STEVE Wei-C - Last Filed: 07/06/20 15:08> Assessment and Plan: Resolved Possibly secondary to dehydration versus history of CA 07/05/2020 Pt has PT/OT orders to increase strength and stamina 07/06/2020 Pt continues to work with PT/OT, remains weak and depressed <Harsh CamposMarcelina Wei APN-C - Last Filed: 07/06/20 15:08> (2) Acute dehydration: Code(s): E86.0 - Dehydration <Harsh CamposMarcelina Wei APN-C - Last Filed: 07/06/20 15:08> Status: Acute <Harsh CamposMarcelina Wei APN-C - Last Filed: 07/06/20 15:08> Assessment and Plan: Resolved Secondary to decreased appetite 07/05/2020 Will repeat labs in the AM, charting indicates good oral intake 07/06/2020 Pt may benefit from Megace or Marinol d/t esophageal CA <Harsh AndresMarcelina Wei APN-C - Last Filed: 07/06/20 15:08> (3) Encounter for hospice care discussion: Code(s): Z71.89 - Other specified counseling <Harsh Wei APN-C - Last Filed: 07/06/20 15:08> Status: Acute <Harsh AndresMarcelina Wei APN-C - Last Filed: 07/06/20 15:08> Assessment and Plan: Family would discuss hospice at [facility] Patient will probably transition into hospice on discharge 07/05/2020 Case management following 07/06/2020 ... <Harsh Wei APN-C - Last Filed: 07/06/20 15:08> (4) Suicidal ideation: Code(s): R45.851 - Suicidal ideations <Harsh Wei APN-C - Last Filed: 07/06/20 15:08> Status: Acute <Harsh Wei APN-C - Last Filed: 07/06/20 15:08> Assessment and Plan: Patient evaluated determined that patient should be admitted to behavioral health Plans to transfer once bed becomes available [facility] reevaluate yesterday attempted to place patient in [facility] behavioral health facilities unsuccessful. 07/06/2020 Informed that Pt signed a Safety Agreement for [facility] coordinator today <Harsh CamposAIDE HernándezC - Last Filed: 07/06/20 15:08> (5) Retention of urine: Code(s): R33.9 - Retention of urine, unspecified <Harsh CamposMarcelina Wei FILM WRITER-C - Last Filed: 07/06/20 15:08> Status: Acute <Harsh AndresMarcelina Wei APN-C - Last Filed: 07/06/20 15:08> Assessment and Plan: History Possibly secondary to BPH Continue Proscar Bladder scan postvoid straight cath greater than 300 07/05/2020 Pt does not have any lower abdominal pain today, urine output 1.44 mL/kg/hr 07/06/2020 Renal function good, no lower abdominal pain <Harsh Wei APN-C - Last Filed: 07/06/20 15:08> (6) BPH (benign prostatic hyperplasia): Qualifiers: Lower urinary tract symptom presence: unspecified whether lower urinary tract symptoms present Qualified Code(s): N40.0 - Benign prostatic hyperplasia without lower urinary tract symptoms <Harsh AndresMarcelina Wei APN-C - Last Filed: 07/06/20 15:08> Code(s): N40.0 - Benign prostatic hyperplasia without lower urinary tract symptoms <Harsh Wei APN-C - Last Filed: 07/06/20 15:08> Status: Acute <Harsh AndresSEAN HernándezN-C - Last Filed: 07/06/20 15:08> Assessment and Plan: Continue Proscar <Harsh Wei APN-C - Last Filed: 07/06/20 15:08> (7) Hypothyroidism: Qualifiers: Hypothyroidism type: unspecified Qualified Code(s): E03.9 - Hypothyroidism, unspecified <Harsh Wei APN-C - Last Filed: 07/06/20 15:08> Code(s): E03.9 - Hypothyroidism, unspecified <Harsh CHUCK Clay - Last Filed: 07/06/20 15:08> Status: Chronic <CHUCK Grijalva - Last Filed: 07/06/20 15:08> Assessment and Plan: Continue Synthroid <CHUCK Grijalva - Last Filed: 07/06/20 15:08> (8) Port-A-Cath in place: Code(s): Z95.828 - Presence of other vas
[2020-07-06 16:00] VITALS: BP 118/60; PULSE 96; RESP 16; TEMP 36.8; O2SAT 97
[2020-07-06 16:17] LABS: Glucose Point of Care 117 (65-105)
[2020-07-06] MEDS: RIVAROXABAN 10 MG TABLET 20 MG PO (16:55)
[2020-07-06] MEDS: traZODone HCL 50 MG TABLET 150 MG PO (21:25)
[2020-07-06] MEDS: FLUTICASONE PROPIONATE 0.05% NA SPR 16 GM BTL (*BKC) 2 SPRAY NASAL (21:25)
[2020-07-06 23:10] VITALS: BP 93/63; PULSE 87; RESP 18; TEMP 36.8; O2SAT 98
--- NOTE | 2020-07-07 02:04 | PC.NURSE ---
pt sleeping, no evidence of distress noted
[2020-07-07] MEDS: LEVOTHYROXINE SODIUM 25 MCG TABLET PO (05:40)
[2020-07-07] MEDS: chlordiazePOXIDE (*CRX) 25 MG CAPSULE PO ×3 (05:40→20:59)
[2020-07-07 07:40] VITALS: BP 109/76; PULSE 107; RESP 20; TEMP 36.5; O2SAT 99
[2020-07-07] MEDS: ATORVASTATIN 5 MG TABLET PO (08:45)
[2020-07-07 08:46] VITALS: PULSE 107
[2020-07-07] MEDS: METOPROLOL SUCCINATE EXT REL 25 MG TABCR PO (08:46)
[2020-07-07] MEDS: POTASSIUM CHLORIDE 20 MEQ TABLET 40 MEQ PO ×2 (08:46→17:00)
[2020-07-07] MEDS: FOLIC ACID 1 MG TABLET PO (08:46)
[2020-07-07] MEDS: DICYCLOMINE HCL 10 MG CAPSULE 30 MG PO ×3 (08:46→16:49)
[2020-07-07] MEDS: POTASSIUM CHLORIDE 20 MEQ TABLET PO ×2 (08:46→16:48)
[2020-07-07] MEDS: amLODIPine BESYLATE 5 MG TABLET PO (08:47)
[2020-07-07] MEDS: MAGNESIUM OXIDE 400 MG TABLET PO (08:47)
[2020-07-07] MEDS: TAMSULOSIN HCL 0.4 MG CAPSULE PO (08:47)
[2020-07-07] MEDS: hydrOXYzine HCL 25 MG TABLET PO (08:47)
[2020-07-07] MEDS: FINASTERIDE 5 MG TABLET PO (08:47)
[2020-07-07] MEDS: MULTIVITAMINS THERAPEUTIC TAB (*BKC) 1 TABLET PO (08:47)
[2020-07-07] MEDS: SERTRALINE HCL 50 MG TABLET PO (08:47)
--- NOTE | 2020-07-07 15:22 | PM.IMPN ---
Progress Note: A&P Assessment and Plan (1) Weakness: Code(s): R53.1 - Weakness Status: Acute Assessment and Plan: Resolved Possibly secondary to dehydration versus history of CA 07/05/2020 Pt has PT/OT orders to increase strength and stamina 07/06/2020 Pt continues to work with PT/OT, remains weak and depressed 07/07/2020 Patient continues to work with PT and OT and has been doing rather well (2) Acute dehydration: Code(s): E86.0 - Dehydration Status: Acute Assessment and Plan: Resolved Secondary to decreased appetite 07/05/2020 Will repeat labs in the AM, charting indicates good oral intake 07/06/2020 Pt may benefit from Megace or Marinol d/t esophageal CA 07/07/2020 fluid balance is positive urine output is good (3) Encounter for hospice care discussion: Code(s): Z71.89 - Other specified counseling Status: Acute Assessment and Plan: Family would discuss hospice at discharge from [facility] Patient will probably transition into hospice on discharge 07/05/2020 Case management following 07/06/2020 ... (4) Suicidal ideation: Code(s): R45.851 - Suicidal ideations Status: Acute Assessment and Plan: Patient evaluated determined that patient should be admitted to behavioral health Plans to transfer once bed becomes available [facility] reevaluate yesterday attempted to place patient in 17 behavioral health facilities unsuccessful. 07/06/2020 Informed that Pt signed a Safety Agreement for [facility] coordinator today 07/07/2020 [address] placement (5) Retention of urine: Code(s): R33.9 - Retention of urine, unspecified Status: Acute Assessment and Plan: History Possibly secondary to BPH Continue Proscar Bladder scan postvoid straight cath greater than 300 07/05/2020 Pt does not have any lower abdominal pain today, urine output 1.44 mL/kg/hr 07/06/2020 Renal function good, no lower abdominal pain 07/07/2020 urine output is good (6) BPH (benign prostatic hyperplasia): Qualifiers: Lower urinary tract symptom presence: unspecified whether lower urinary tract symptoms present Qualified Code(s): N40.0 - Benign prostatic hyperplasia without lower urinary tract symptoms Code(s): N40.0 - Benign prostatic hyperplasia without lower urinary tract symptoms Status: Acute Assessment and Plan: Continue Proscar (7) Hypothyroidism: Qualifiers: Hypothyroidism type: unspecified Qualified Code(s): E03.9 - Hypothyroidism, unspecified Code(s): E03.9 - Hypothyroidism, unspecified Status: Chronic Assessment and Plan: Continue Synthroid (8) Port-A-Cath in place: Code(s): Z95.828 - Presence of other vascular implants and grafts Status: Acute Assessment and Plan: 07/06/[address], clean 07/07/2020 ... (9) GERD (gastroesophageal reflux disease): Qualifiers: Esophagitis presence: without esophagitis Qualified Code(s): K21.9 - Gastro-esophageal reflux disease without esophagitis Code(s): K21.9 - Gastro-esophageal reflux disease without esophagitis Status: Acute Assessment and Plan: Continue Protonix (10) Abnormal finding on urinalysis: Code(s): R82.90 - Unspecified abnormal findings in urine Status: Acute Assessment and Plan: Patient with leukocytes, nitrates in urine History of abnormal urinalysis Urine culture with growth of alcaligenes xylosoxidanas continue Bactrim 07/05/2020 Continue with Bactrim 07/06/2020 2 more days of Bactrim to complete course 07/07/2020 ... (11) ETOHism: Code(s): F10.20 - Alcohol dependence, uncomplicated Status: Acute Assessment and Plan: 07/05/2020 No withdrawal symptoms noted 07/06/2020 Pt states he has not had EtOH since March 2020 07/07/2020 ... 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
[2020-07-07 16:00] VITALS: BP 130/70; PULSE 85; RESP 18; TEMP 36.4; O2SAT 98
[2020-07-07] MEDS: RIVAROXABAN 10 MG TABLET 20 MG PO (16:49)
[2020-07-07 16:59] LABS: Glucose Point of Care 74 (65-105)
[2020-07-07] MEDS: traZODone HCL 50 MG TABLET 150 MG PO (21:02)
[2020-07-07] MEDS: FLUTICASONE PROPIONATE 0.05% NA SPR 16 GM BTL (*BKC) 2 SPRAY NASAL (21:08)
[2020-07-07 23:39] VITALS: BP 100/64; PULSE 92; RESP 20; TEMP 36.7; O2SAT 98
[2020-07-08] MEDS: LEVOTHYROXINE SODIUM 25 MCG TABLET PO (06:13)
[2020-07-08] MEDS: chlordiazePOXIDE (*CRX) 25 MG CAPSULE PO ×2 (06:13→13:04)
[2020-07-08 08:00] VITALS: BP 117/66; PULSE 111; RESP 20; TEMP 36.6; O2SAT 99
[2020-07-08 08:19] VITALS: PULSE 111
[2020-07-08] MEDS: POTASSIUM CHLORIDE 20 MEQ TABLET 40 MEQ PO (08:19)
[2020-07-08] MEDS: ATORVASTATIN 5 MG TABLET PO (08:19)
[2020-07-08] MEDS: POTASSIUM CHLORIDE 20 MEQ TABLET PO (08:19)
[2020-07-08] MEDS: METOPROLOL SUCCINATE EXT REL 25 MG TABCR PO (08:19)
[2020-07-08] MEDS: hydrOXYzine HCL 25 MG TABLET PO (08:20)
[2020-07-08] MEDS: FOLIC ACID 1 MG TABLET PO (08:20)
[2020-07-08] MEDS: DICYCLOMINE HCL 10 MG CAPSULE 30 MG PO ×2 (08:20→13:04)
[2020-07-08] MEDS: FINASTERIDE 5 MG TABLET PO (08:20)
[2020-07-08] MEDS: MULTIVITAMINS THERAPEUTIC TAB (*BKC) 1 TABLET PO (08:20)
[2020-07-08] MEDS: FERROUS SULFATE 324 MG TABLET PO (08:20)
[2020-07-08] MEDS: MAGNESIUM OXIDE 400 MG TABLET PO (08:21)
[2020-07-08] MEDS: SERTRALINE HCL 50 MG TABLET PO (08:21)
[2020-07-08] MEDS: TAMSULOSIN HCL 0.4 MG CAPSULE PO (08:21)
[2020-07-08] MEDS: amLODIPine BESYLATE 5 MG TABLET PO (08:21)
[2020-07-08 08:31] LABS: Glucose Point of Care 126 (65-105)
--- NOTE | 2020-07-08 10:24 | PM.DS ---
DS: Admitting Diagnosis Admitting Diagnosis Admitting Diagnosis: Weakness, suicidal ideation DS: Discharge Diagnosis Discharge Diagnosis (1) Esophageal cancer: Code(s): C15.9 - Malignant neoplasm of esophagus, unspecified Status: Acute Assessment and Plan: The patient is to be discharged home to be put on hospice and followed for further care, primarily comfort care (2) Depression: Code(s): F32.9 - Major depressive disorder, single episode, unspecified Status: Acute Assessment and Plan: Then patient was evaluated by mental health and has not felt to be at risk for suicide. He has been placed on an antidepressant and appears to be making some improvement in his mood. DS: Summary Hospital Course Hospital Course: The patient was seen by mental health and was not felt to be at risk for suicide. He was started on an antidepressant and appeared to be having improvement in his mood prior to discharge. Time Spent with Patient Time attestation: Total time spent providing and/or coordinating discharge services: 30 minutes Exam Const: General: no acute distress Limitations: no limitations HENMT: Mouth: Yes moist mucous membranes Eyes: General: appearance normal, both eyes and all related structures Neck: Neck: supple Resp: Auscultation: clear to auscultation bilaterally Cardio: Rate: regular rate Rhythm: regular rhythm GI: GI Palp: Yes Soft to palpation (nontender) Skin: General skin exam: normal color Neuro: Motor exam (neuro): 5/5 motor strength present throughout and Normal motor muscle tone present throughout Extrem: General: normal to inspection Right upper extremity: normal to inspection Left upper extremity: normal to inspection Right lower extremity: normal to inspection Left lower extremity: normal to inspection Psych: Appearance: grossly normal Mental Status: mental status grossly normal Speech and movement: Normal speech and movement present Thought content: Yes Normal thought content present DS: Data Data Completed and Pending Labs on day of discharge: Labs from last 24 hours 07/08/20 07/07/20 08:29 16:58 POC Capillary Glucose 126 74 Discharge Plan Discharge Attending physician on discharge: Eliel Mendoza Consulting providers: Kenton Burris ; Harsh Wei ; Cruz Pickard ; Prosper Blood Discharging Clinician: Eliel Mendoza Patient Disposition: [facility] Activity: unlimited and as tolerated Diet: regular Discharge Instructions: [facility] TO FOLLOW AT [place]- PHONE: [phone] NURSING TO FAX D/C INSTRUCTIONS TO Patient Instructions: Antibiotic Form, Depression (DC), Fall Prevention for Older Adults (DC), Weakness (DC) Stand Alone Forms: General Discharge Information, [facility] Discharge Follow-up/Referrals: Shirin Murray MD [Primary Care Provider] - Call for Appointment Discharge Medications: New sertraline [Zoloft] 50 mg Tablet 50 mg PO QAM Qty: 30 RF: 0 sulfamethoxazole-trimethoprim 800-160 mg Tablet 1 tablet PO Q12HR Qty: 30 RF: 0 chlordiazepoxide HCl 25 mg Capsule 25 mg PO Q8HR Qty: 30 RF: 0 potassium chloride [K-Tab] 20 mEq Tablet Extended Release 40 meq PO BIDWM Qty: 30 RF: 0 Continued ferrous sulfate 325 mg (65 mg iron) Tablet 324 mg PO DAILY 30 Days Qty: 30 RF: 0 multivitamin [Daily-Stuart] Tablet 1 tablet PO DAILY RF: 0 dicyclomine 20 mg tablet 30 mg PO TID RF: 0 hydroxyzine HCl 25 mg tablet 25 mg PO DAILY RF: 0 metoprolol succinate 25 mg tablet extended release 24 hr 25 mg PO DAILY RF: 0 Xarelto 20 mg tablet 20 mg PO DAILY RF: 0 levothyroxine 25 mcg Tablet 25 mcg PO DAILY@0630 Qty: 30 RF: 0 albuterol sulfate 90 mcg/actuation HFA aerosol inhaler 2 puff INHALATION Q6H PRN (Reason: Shortness Of Breath Or Wheezing) Qty: 60 RF: 0 fluticasone propionate 50 mcg/actuation spray,suspension
--- NOTE | 2020-07-08 15:22 | PC.NURSE ---
Discharge report called into [facility] to Kathy an RN with facility.
[2020-07-08 16:00] VITALS: BP 98/62; PULSE 95; RESP 18; TEMP 36.9; O2SAT 98
--- NOTE | 2020-07-08 16:16 | PC.NURSE ---
Pt discharged to ambulance service. Report given, all personal belongings returned to pt. Copies of medical records sent with pt for receiving facility.
--- NOTE | 2020-07-12 13:33 | PC.NURSE ---
Unable to contact for discharge call back.
== END 2020-07-08 16:20 | DRG 881 ==
LOC: CHSED 14:26 → CHS2ND 16:58
PROVIDERS: Emergency Medicine; Nurse Practitioner; Nurse Practitioner Family; Admitting Provider Emergency Medicine; Emergency Provider Emergency Medicine; PCP Internal Medicine; Visit Provider Emergency Medicine
DX: F32.9 Major depressive disorder, single episode, unspecified (principal); R45.851 Suicidal ideations; C15.9 Malignant neoplasm of esophagus, unspecified; I82.512 Chronic embolism and thrombosis of left femoral vein; I82.C22 Chronic embolism and thrombosis of left internal jugular vein; I82.A22 Chronic embolism and thrombosis of left axillary vein; E86.0 Dehydration; I10 Essential (primary) hypertension; N40.1 Benign prostatic hyperplasia with lower urinary tract symptoms; R33.8 Other retention of urine; K21.9 Gastro-esophageal reflux disease without esophagitis; D64.9 Anemia, unspecified; E89.0 Postprocedural hypothyroidism; K27.9 Peptic ulcer, site unspecified, unspecified as acute or chronic, without hemorrhage or perforation; K76.0 Fatty (change of) liver, not elsewhere classified; G62.9 Polyneuropathy, unspecified; F17.211 Nicotine dependence, cigarettes, in remission; F10.20 Alcohol dependence, uncomplicated; F41.9 Anxiety disorder, unspecified; Z85.850 Personal history of malignant neoplasm of thyroid; Z79.01 Long term (current) use of anticoagulants; Z87.442 Personal history of urinary calculi; Z90.49 Acquired absence of other specified parts of digestive tract; Z90.3 Acquired absence of stomach [part of]; Z95.828 Presence of other vascular implants and grafts
CPT/HCPCS: 36415; 71046; 80048; 80053; 80202; 80307; 81001; 82565; 82948; 83605; 83690; 84443; 85025; 85027; 85380; 85610; 85730; 86140; 87040; 87077; 87086; 87088; 87186; 93005; 96360; 96361; 96365; 96366; 96367; 97110; 97161; 97165; 97530; 97535; 99285; A9270; C9803; G0378; J0696; J3370; J3411; J7030; J7121; U0003; U0005